=== PATIENT | female | born 1965 | race Hispanic/Latino ===

== ENCOUNTER 2016-12-01 13:21 | Emergency (ER) | payer BC ==
[~2016-12-01] VITALS: Ht 157.5 cm; Wt 95.2 kg
[~2016-12-01 13:21] MED LIST: ASPIRIN EC81 MG PO; ATORVASTATIN CA40 MG PO; ATORVASTATIN CA80 MG PO; EFFIENT10 MG PO; FERREX 150 FOR1 EAC1 PO; HUMIRA40 MG/0.1 SUB-Q; ISOSORBIDE MONO30 MG PO; KETOPROFEN75 MG PO; METFORMIN HCL500 MG PO; METOPROLOL TART50 MG PO; NITROGLYCERIN0.4 MG SL; OXYCODONE HCL5 MG PO; PREDNISONE10 MG PO; SPIRIVA18 MCG INH; TRESIBA FL100 UNIT/1 SQ
[2016-12-01] MEDS ORDERED: LISINOPRIL10 MG PO (13:40)
[2016-12-01] MEDS ORDERED: CALCITRIOL0.5 MCG PO (13:40)
--- NOTE | 2016-12-01 15:35 | EKG ---
[facility] [address] [facility] [place] [address] Signed Normal sinus rhythm Left axis deviation T wave abnormality, consider lateral ischemia Abnormal ECG No previous ECGs available Confirmed by SARA FAGAN MD ([id number]) on 12/01/2016 3:35:22 PM Electronically Signed By: SARA FAGAN MD 12/01/16 1535 PATIENT NAME: BARBARA CUEVAS Electrocardiogram DATE OF : 61 PHYSICIAN: SARA FAGAN MD REPORT #: [id number] REPORT IS CONFIDENTIAL AND NOT TO BE RELEASED WITHOUT AUTHORIZATION
== END 2016-12-01 17:25 | disposition home or self-care (01) ==
LOC: ED 13:21
DX: I20.9 Angina pectoris, unspecified (principal); E11.9 Type 2 diabetes mellitus without complications; I25.2 Old myocardial infarction; M06.9 Rheumatoid arthritis, unspecified; Z87.891 Personal history of nicotine dependence; Z90.49 Acquired absence of other specified parts of digestive tract; Z98.51 Tubal ligation status; Z79.899 Other long term (current) drug therapy; Z79.4 Long term (current) use of insulin
CPT/HCPCS: 71020; 80053; 84484; 85025; 93005; 93010; 99284

== ENCOUNTER 2017-06-29 00:26 | Emergency (ER) | payer BC ==
[~2017-06-29] VITALS: Ht 157.5 cm; Wt 95.2 kg
[~2017-06-29 00:26] MED LIST changes: +CALCITRIOL0.5 MCG PO; +LISINOPRIL10 MG PO
[2017-06-29] MEDS ORDERED: OXYCODONE HCL5 MG PO (02:59)
== END 2017-06-29 03:10 | disposition home or self-care (01) ==
LOC: ED 00:26
DX: M06.9 Rheumatoid arthritis, unspecified (principal); E11.9 Type 2 diabetes mellitus without complications; I25.2 Old myocardial infarction; Z87.891 Personal history of nicotine dependence; Z79.899 Other long term (current) drug therapy
CPT/HCPCS: 96372; 99283; J1170; J2270

== ENCOUNTER 2017-12-02 15:11 | Emergency (ER) | payer BC ==
[~2017-12-02] VITALS: Ht 157.5 cm; Wt 95.7 kg
[2017-12-02] MEDS ORDERED: MORPHINE SULFAT15 MG PO (15:49)
== END 2017-12-02 17:16 | disposition home or self-care (01) ==
LOC: ED 15:11
DX: M06.9 Rheumatoid arthritis, unspecified (principal); E11.9 Type 2 diabetes mellitus without complications; Z87.891 Personal history of nicotine dependence; Z79.4 Long term (current) use of insulin; Z79.899 Other long term (current) drug therapy
CPT/HCPCS: 96374; 96375; 96376; 99283; J1100; J1170; J2405

== ENCOUNTER 2018-05-15 20:07 | Emergency (ER) | payer BC ==
[~2018-05-15] VITALS: Ht 157.5 cm; Wt 93.0 kg
[~2018-05-15 20:07] MED LIST changes: +AMOXICILLIN500 MG PO; +ANUCORT-HC25 MG PR; +FERROUS SULFAT325 MG PO; +MORPHINE SULFAT15 MG PO; +NITROSTAT0.4 MG SL; +PERCOCET 5-3251 EACH PO; +SULFASALAZINE500 MG PO; +TRULICITY1.5 MG/0.5 SUB-Q
[2018-05-15] MEDS ORDERED: ZOFRAN4 MG PO (23:12)
== END 2018-05-15 23:45 | disposition home or self-care (01) ==
LOC: ED 20:07
DX: K52.9 Noninfective gastroenteritis and colitis, unspecified (principal); M06.9 Rheumatoid arthritis, unspecified; E11.9 Type 2 diabetes mellitus without complications; Z87.891 Personal history of nicotine dependence; Z87.442 Personal history of urinary calculi; Z90.710 Acquired absence of both cervix and uterus; Z91.09 Other allergy status, other than to drugs and biological substances; Z88.8 Allergy status to other drugs, medicaments and biological substances; Z79.4 Long term (current) use of insulin; Z79.899 Other long term (current) drug therapy; Z79.82 Long term (current) use of aspirin
CPT/HCPCS: 80053; 81001; 84703; 85025; 87045; 87046; 87077; 96361; 96374; 96376; 99284-25; J2405; J7030

== ENCOUNTER 2019-01-04 21:49 | Emergency (ER) | payer OTHER, BC ==
[~2019-01-04] VITALS: Ht 157.5 cm; Wt 82.5 kg
[~2019-01-04 21:49] MED LIST changes: +ZOFRAN4 MG PO
--- OUTSIDE RECORDS SUMMARY | 2019-01-04 21:52 | XMS ---
PreManage Notification: BARBARA CUEVAS Security Abrasives Sales Representative Events No recent Security Events currently on file CRITERIA MET - [facility] CARE PROVIDERS TERRI ANDREWS Manager Culture [facility] Eliel Bell NEIL PHONE: Unknown WILMA MATTA Nurse Practitioner: Family Current PHONE: Unknown ROBERTO STARK [facility] Current PHONE: Unknown ROBERTO STARK Primary [facility] Current PHONE: [phone] Lizbeth has no Care Guidelines for this patient. [place] VISIT COUNT (12 MO.) 1 [place] Miguel[place] 3 DHEERAJ Warner TOTAL 4 NOTE: Visits indicate total known visits. ED/UCC VISIT TRACKING (12 MO.) 01/04/2019 21:49 DHEERAJ [place] TYPE: Emergency COMPLAINT: - FALL 11/21/2018 16:19 [facility] [place] TYPE: Urgent Care DIAGNOSES: - Vaginitis - Candidiasis of vulva and vagina 11/07/2018 13:24 [facility] [place] TYPE: Urgent Care DIAGNOSES: - Other - Cutaneous abscess of abdominal wall - Cellulitis of other sites 07/28/2018 16:30 [facility] [place] TYPE: Emergency DIAGNOSES: - Encounter for other specified surgical aftercare - Post-op Problem - post op issues 07/28/2018 15:57 [facility] Urgent [facility] [place] TYPE: Urgent Care DIAGNOSES: - Wound Check - Procedure and treatment not carried out due to patient leaving prior to being seen by health care provider 05/15/2018 20:08 [facility] [place] TYPE: Emergency COMPLAINT: - DIAHERRA/VOMITTING AND WEAKNESS DIAGNOSES: - Acquired absence of both cervix and uterus - manager materials management (current) use of aspirin - Noninfective gastroenteritis and colitis, unspecified - Other fluorescent solution mixer (current) drug therapy - Type 2 diabetes mellitus without complications - manager materials management (current) use of insulin - Other allergy status, other than to drugs and biological substances - Personal history of urinary calculi - Diarrhea, unspecified - Personal history of nicotine dependence - Rheumatoid arthritis, unspecified - Allergy status to other drugs, medicaments and biological substances status 01/21/2018 16:54 DHEERAJ [place] TYPE: Emergency COMPLAINT: - SOB INPATIENT VISIT TRACKING (12 MO.) [facility] TYPE: Recovery DIAGNOSES: - Excessive and frequent menstruation with irregular cycle - menorrhagia, fibroid uterus - Benign neoplasm of connective and other soft tissue, unspecified 01/21/2018 16:[address] [facility] [place] TYPE: Observation COMPLAINT: - SYMPTOMATIC ANEMIA DIAGNOSES: - Chronic kidney disease, unspecified - Atherosclerotic heart disease of [place] coronary artery without angina pectoris - Personal history of other endocrine, nutritional and metabolic disease - Personal history of other diseases of the digestive system - Other fluorescent solution mixer (current) drug therapy - Presence of coronary angioplasty implant and graft - manager materials management (current) use of insulin - Patient's noncompliance with other medical treatment and regimen - assisted (current) use of aspirin - Iron deficiency anemia secondary to blood loss (chronic) - Rheumatoid arthritis, unspecified - Acute posthemorrhagic anemia - Personal history of nicotine dependence - Anemia, unspecified - Old myocardial infarction - Type 2 diabetes mellitus with diabetic chronic kidney disease [email or web address]
== END 2019-01-05 01:34 | disposition home or self-care (01) ==
LOC: ED 21:49
PROC: 2W3KX1Z Immobilization of Left Finger using Splint (ICD-10-PCS; principal; 2019-01-04)
DX: S63.613A Unspecified sprain of left middle finger, initial encounter (principal); S63.601A Unspecified sprain of right thumb, initial encounter; S80.02XA Contusion of left knee, initial encounter; E11.9 Type 2 diabetes mellitus without complications; I25.2 Old myocardial infarction; F17.200 Nicotine dependence, unspecified, uncomplicated; Z95.5 Presence of coronary angioplasty implant and graft; Z87.442 Personal history of urinary calculi; Z88.8 Allergy status to other drugs, medicaments and biological substances; Z91.048 Other nonmedicinal substance allergy status; Z79.4 Long term (current) use of insulin; Z79.82 Long term (current) use of aspirin; Z79.899 Other long term (current) drug therapy; W10.8XXA Fall (on) (from) other stairs and steps, initial encounter
CPT/HCPCS: 29130; 73140; 73560; 73590; 99283-25

== ENCOUNTER 2019-02-12 06:45 | Day surgery (SDC) | payer BC ==
[~2019-02-12] VITALS: Ht 157.5 cm; Wt 82.5 kg
--- NOTE | 2019-02-12 09:48 | NUR ---
02/12/19 0948 Sheets,Sanam 0933 PT ARRIVED WITH ORAL AIRWAY IN PLACE, PT REACTIVE TO TACTILE STIMULI. RESP EVEN AND UNLABORED. 0934 PT OPENED EYES AND ORAL AIRWAY REMOVED. 0936 O2 MASK REMOVED, PT DENIES PAIN AND NAUSEA HOB INCREASED. 0940 PLAN OF CARE DISCUSSED. PT AWAKE AND TALKING TO RN. PT EDUCATION GIVEN ON DEMETRI DRAIN.
--- NOTE | 2019-02-12 10:05 | NUR ---
PT ARRIVES TO DS RM 4 FROM PACU AWAKE AND ALERT. RESP EVEN AND UNLABORED, PT SATS 94% ON RA, CONT PULSE OXIMETER LEFT IN PLACE. PT DENIES NAUSEA OR PAIN IN ABD. PT PROVIDED ICED WATER, THREE AFFILIATED SODA AND PUDDING PER REQUEST. CALL LIGHT WITHIN REACH.
--- NOTE | 2019-02-12 11:46 | NUR ---
PT USES CALL LIGHT TO NOTIFY RN OF URGE TO VOID. PT HAS STEADY GAIT WITH NO C/O DIZZINESS OR NAUSEA. DEMETRI DRAIN SAFETY PINNED TO GOWN. PT ABLE TO VOID 400 MLS YELLOW URINE WITH NO PROBLEMS. PT BACK TO BED WITH SCD'S IN PLACE, CALL LIGHT WITHIN REACH.
--- NOTE | 2019-02-12 12:31 | NUR ---
1220 PT REPORTS READINESS TO GO HOME DISCHARGE INSTRUCTIONS GIVEN TO PATIENT AND FRIEND BOTH VOICED UNDERSTANDING. ABOUT 2ML OF RED SEROUS FLUID DRAINDED OUT OF DEMETRI DRAIN.
--- NOTE | 2019-02-13 05:41 | OR ---
[facility] [address] [place], [place] [address] Signed DATE OF OPERATION: 02/12/2019 SURGEON: Catarino Zambrano MD PREOPERATIVE DIAGNOSIS: Postoperative seroma. POSTOPERATIVE DIAGNOSIS: Small cutaneous sinus tract. PROCEDURES: 1. Excision of scar and sinus tract. 2. Wound exploration. 3. Subcutaneous drain placement. ESTIMATED BLOOD LOSS: None. FINDINGS: Jessie appears to have completely resorbed her postoperative seroma and finally scarred down her sinus tract. However, the overlying skin remained quite thin and the scar was just over a centimeter, quite wide. INDICATIONS: Jessie is a 54-year-old, obese, uncontrolled diabetic and uncontrolled hypertensive patient, who in August of this year underwent a difficult open hysterectomy. This was done through an infraumbilical midline incision. The wound had broke down and she had wound packing initially and followed by application of her wound VAC. She apparently missed a couple months of work. Her boyfriend finally left. She said over the last 2-1/2 months, the wound was opened up at least four different times and leaked a significant amount of fluid. The primary care provider had ordered an ultrasound, which showed a fluid collection 3.4 x 3.0 x 2.5 cm just underneath the skin that extended down to the anterior abdominal wall and stretched itself across the anterior abdominal wall about 13 cm x 15 cm x 0.4 cm thick. The ultrasound was not able to determine that this was blood pus or just simple fluid. She had come to see me with respect to the above. On physical exam, we really could not appreciate an obvious fluid collection. I explained to Jessie, she would continue to heal for the entire year. However, she told me it was already starting to break down for the 5th time to leak through her skin. She was quite concerned. We had ordered a CT scan of the abdomen and pelvis. This showed some fluid collection underneath the skin, but along the abdominal wall, it was Electronically Signed By: CATARINO ZAMBRANO MD 02/13/19 0541 PATIENT NAME: JESSIE CUEVAS OPERATIVE REPORT DATE OF : 61 REPORT #: [id number] PHYSICIAN: CATARINO ZAMBRANO MD PCP: ANGIE TAYLOR MD REPORT IS CONFIDENTIAL AND NOT TO BE RELEASED WITHOUT AUTHORIZATION [facility] [address] [place] [id number] Signed improving. No obvious hernia. We did track down her operative report and as expected, all the suture utilized to close the abdominal wall is absorbable suture. I had met with Jessie back in the office. We went over this in great detail. She felt strongly that it was still leaking and she could point easily to the area of a thin scar tissue. Consequently, we decided to bring her to the operating room for exploration of the wound and we would excise the scar or any sinus tract that we could find. If there was any fluid, we certainly would culture that. We are going to do our best to avoid an open wound as she needs to continue her employment. Consequently, we discussed using a simple #7 Seb drain. 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 We reviewed this in great detail. We also reviewed the risks including, but not limited to bleeding, infection, scarring, change in contour of the skin as well as recurrent seromas and/or need for additional surgeries or wound care. She had expressed understanding and wished to proceed. PROCEDURE NOTE: I met with Jessie in our preop area once again. She could easily point to that thinned-out scar tissue. We marked that appropriately. In addition, we can see that Jessie has untreated hypertension and diabetes. She said, although she has commercial insurance, it is quite expensive. I asked her to review that with her primary care provider as she already has two myocardial stents from a myocardial infarction along with rheumatoid arthritis and we can see her renal function is already declining. She also told us that she meets with her gift officer about every six months. After this, Jessie was taken into the operating room and placed in the supine position under general LMA anesthesia. She was kept relatively light for the procedure. She certainly was breathing throughout the case. We did not pharmacologically paralyze her muscles. She was given preoperative antibiotics along with subcutaneous heparin. SCDs were utilized. She was then prepped and draped in the usual sterile fashion. We used our 20 blade knife to excise her previous thinned-out scar tissue and went down around that carefully and slowly with the cautery. We took it all the way down the anterior abdominal wall to the level of the fascia. There was no fluid collection underneath. That had all healed and settled down onto the abdominal wall. We found sinus tract that was scarred coming up to the skin. No fluid collection directly in the sinus tract itself. This was passed off the field to be reviewed by the Pathology Department. I did insert the needle out laterally underneath along the abdominal wall. There were no fluid collections to be aspirated. We then went ahead and injected local anesthetic in the abdominal wall in the subcutaneous tissues. The wound was irrigated and suctioned out until clear. We used a flat #7 Seb drain and we placed it into the base of the wound and brought it out through the right lower quadrant of the abdominal wall. It was held in place at the abdominal wall with 2-0 nylon suture. We closed the dermis with interrupted 3-0 subcuticular Monocryl sutures. The skin edges were reapproximated with a running 6-0 fast absorbing plain gut suture. She told us she was quite sensitive and allergic to tape, so we simply did not apply any gauze dressing or tape at this time. Electronically Signed By: CATARINO ZAMBRANO MD 02/13/19 0541 PATIENT NAME: JESSIE CUEVAS OPERATIVE REPORT DATE OF : 61 REPORT #: [id number] PHYSICIAN: CATARINO ZAMBRANO MD PCP: ANGIE TAYLOR MD REPORT IS CONFIDENTIAL AND NOT TO BE RELEASED WITHOUT AUTHORIZATION [address] [address] Signed After this, Jessie was awakened from anesthesia, extubated in the OR, and taken to recovery room in stable condition. Catarino Zambrano MD ALB/MODL /[id number] cc: MD Robin Rivera MD Andrew L Bower, MD Hipolito Custodio, MD Copies: MARYANN RHODES MD, ANDREW L MD CUSTODIO, HIPOLITO MD ~ Electronically Signed By: CATARINO ZAMBRANO MD 02/13/19 0541 PATIENT NAME: JESSIE CUEVAS OPERATIVE REPORT DATE OF : 61 REPORT #: [id number] PHYSICIAN: CATARINO ZAMBRANO MD PCP: ANGIE TAYLOR MD REPORT IS CONFIDENTIAL AND NOT TO BE RELEASED WITHOUT AUTHORIZATION
== END 2019-02-12 12:30 | disposition home or self-care (01) ==
LOC: DS 06:45
PROVIDERS: Colon & Rectal Surgery
PROC: 0JB80ZZ Excision of Abdomen Subcutaneous Tissue and Fascia, Open Approach (ICD-10-PCS; principal; 2019-02-12 08:30)
DX: L90.5 Scar conditions and fibrosis of skin (principal); L98.8 Other specified disorders of the skin and subcutaneous tissue; M06.9 Rheumatoid arthritis, unspecified; F17.210 Nicotine dependence, cigarettes, uncomplicated; Z91.040 Latex allergy status; Z79.82 Long term (current) use of aspirin; I25.2 Old myocardial infarction
CPT/HCPCS: 00400; J0690; J1100; J1644; J1885; J2704; J3010; J7120

== ENCOUNTER 2019-02-23 16:35 | Inpatient (IN) | payer BC ==
[~2019-02-23] VITALS: Ht 157.5 cm; Wt 88.9 kg
--- OUTSIDE RECORDS SUMMARY | ~2019-02-23 | XMS | Encounter Summary ---
Demographics + + + | Address | [address] | | | [place] [address] | + + + | Home Phone | | + + + | Preferred Language | Unknown | + + + | Marital Status | | + + + | Adventist Affiliation | Unknown | + + + | Race | Unknown | + + + | Ethnic Group | Unknown | + + + Author + + + | Author | [employer] (Historical as of | | | 12-26-18) | + + + | Organization | [facility] (Historical as of | | | 12-26-18) | + + + | Address | Unknown | + + + | Phone | Unavailable | + + + Support + + +---------+ + | Name | Relationship | Address | Phone | + + +---------+ + | Raul Humphreys | ECON | Unknown | | | egorio | | | | + + +---------+ + Care Team Providers + +------+ + | Care Team Leader/Research Psychologist Name | Role | Phone | + +------+ + | Madhu Jo MD | PCP | | + +------+ + Encounter Details +--------+ + + + + | Date | Type | Department | Care Team | Description | +--------+ + + + + | 12/17/ | Telephone | [facility] | Elaine Frazier RN | | | 2019 | | Associated | | | | | | [facility] | | | | | | [address], | | | | | | [address] [place], | | | | | | [place] [address] | | | | | | [phone] | | | +--------+ + + + + Social History + + + +--------+------+ | Tobacco Use | Types | Packs/Day | Years | Date | | | | | Used | | + + + +--------+------+ | Former Smoker | Cigarettes | | | | + + + +--------+------+ + +---+---+---+ | Smokeless Tobacco: | | | | | Never Used | | | | + +---+---+---+ + + | Comments: Quit about 2 months ago. | + + + + +---------+ + | Alcohol Use | Drinks/We | oz/Week | Comments | | | ek | | | + + +---------+ + | No | | | | + + +---------+ + + + + | Sex Assigned at | Date Recorded | | | | + + + | Not on file | | + + + as of this encounter Plan of Treatment Not on fileas of this encounter Visit Diagnoses Not on filein this encounter"
--- OUTSIDE RECORDS SUMMARY | ~2019-02-23 | XMS | Encounter Summary ---
Demographics + + + | Address | [address] | | | [place] [address] | + + + | Home Phone | | + + + | Preferred Language | Unknown | + + + | Marital Status | | + + + | Gnosticist Affiliation | Unknown | + + + | Race | Unknown | + + + | Ethnic Group | Unknown | + + + Author + + + | Author | [facility] (Historical as of | | | 12-26-18) | + + + | Organization | [facility] (Historical as of | | | 12-26-18) [...] Team Providers + +------+ + | Care Personal Consultant Name | Role | Phone | + +------+ + | Madhu Jo MD | PCP | | + +------+ + Reason for Visit + + + | Reason | Comments | + + + | Post-op Problem | | + + + Encounter Details +--------+---------+ + + + | Date | Type | Department | Care Team | Description | +--------+---------+ + + + | 12/16/ | Office | [facility] | Osmany Robin | Wound drainage | | 2019 | Visit | Associated | Lorenzo RIVERA MD [address] | (Primary Dx); Status | | | | [facility] | [address] | post total | | | | [address], | [address] [place], [place] | abdominal | | | | [address] [place], | [address] | hysterectomy | | | | [place] [address] | | bilateral | | | | [phone] | | salphingooophorectom | | | | | | y | +--------+---------+ + + + Social History [...] + + + as of this encounter Last Filed Vital Signs + + + + | Vital Sign | Reading | Time Taken | + + + + | Blood Pressure | 156/84 | 12/16/2018 1:49 PM PDT | + + + + | Pulse | 84 | 12/16/2018 1:49 PM PDT | + + + + | Temperature | - | - | + + + + | Respiratory Rate | - | - | + + + + | Oxygen Saturation | 95% | 12/16/2018 1:49 PM PDT | + + + + | Inhaled Oxygen | - | - | | Concentration | | | + + + + | Weight | 85.5 kg (188 lb 9.6 | 12/16/2018 1:49 PM PDT | | | oz) | | + + + + | Height | 157.5 cm (5' 2") | 12/16/2018 1:49 PM PDT | + + + + | Body Mass Index | 34.5 | 12/16/2018 1:49 PM PDT | + + + + in this encounter Progress Robin Del Angel III, MD - 12/16/2018 1:30 PM PDTFormatting of this note may be di fferent from the original. Subjective: Patient ID: Jessie Casarez is a 53 y.o. female. HPI Complaining of drainage from her abdominal incision. She had abdominal hysterectomy earlier this year. This was complicated by postoperative infection and was managed with a wound VAC. The wound VAC was removed 8 weeks ago. She reports that few days ago she woke up with her sheets soaked up in serous drainage from the wound. Review of Systems Gastrointestinal: Positive for abdominal pain. Objective: Physical Exam Constitutional: She appears well-developed and well-nourished. No distress. Cardiovascular: Normal rate. Pulmonary/Chest: Effort normal. No respiratory distress. Abdomina/Gl: Soft. She exhibits no distension and no mass. There is no tenderness. There is no rebound and no guarding. There is a 5 mm raw area over her laparotomy scar, this is nontender, with very little flui d that could be expressed. Musculoskeletal: She exhibits no edema, tenderness or deformity. Assessment and Plan: Wound drainage. Her risk factor for poor wound healing is diabetes. Bactrim for 14 days was prescribed today. Fluconazole weekly for 4 doses was also prescribed, secondary to her predisposition to vagi nal yeast infections every time she starts antibiotics. Due to the amount of reported drainage, I would also order an abdominal ultrasound to look for a subcutaneous fluid collection, she prefers to have this done in [place]. Camille Lopez, ORNAMENTAL METAL WORKER HELPER - 12/16/2018 1:30 PM PDTFormatting of this note may be different from the original. Ancillary Note Patient ID: Jessie Casarez is a 53 y.o. . Preliminary Data (patient reported): Pt presents today for post op incisional pain and opening of incision for a second time sin ce surgery. Per pt report wound was draining but has stopped and is healing. She is s/p (1) Total abdominal hysterectomy, left oophorectomy, right salphingooophorectomy (2) Lysis of adhesions with Dr. Ceron on 07/23/18 and Repair sigmoid colon, Minor lysis o f adhesions with Dr. Og Odell BP 156/84 | Pulse 84 | Ht 5' 2" (1.575 m) | Wt 188 lb 9.6 oz (85.5 kg) | LMP 07/07/2018 (Exact Date) | SpO2 95% | BMI 34.50 kg/m Review of Systems Menstrual History: OB History Para Term AB Living 1 1 0 SAB TAB Ectopic Multiple Live Births 1 0 Patient's last menstrual period was 07/07/2018 (exact date). Recommendations from Health Maintenance / Immunizations Due: Health Maintenance Due Topic Vaccine: Dtap/Tdap/Td (1 - Tdap) Cervical Cancer Screening (Pap) Colon Cancer Screening (Colonoscopy) Breast Cancer Screening (Mammogram) Vaccine: Zoster (1 of 2) Specialty Comments on SnapShot: No specialty comments available. Patient Care Team: Madhu Jo MD as PCP - General (Pulmonary Medicine) The patient has not signed up for [employer]. in this encounter Plan of Treatment + +--------+ + + | Name | Priori | Associated Diagnoses | Order Schedule | | | ty | | | + +--------+ + + | US abdomen limited | Routin | Status post total | Ordered: 12/16/2018 | | | e | abdominal | | | | | hysterectomy | | | | | bilateral | | | | | salphingooophorectom | | | | | y Wound drainage | | + +--------+ + + as of this encounter Visit Diagnoses + + | Diagnosis | + + | Wound drainage - Primary | + + | Injury, other and unspecified, other specified sites, including multiple | + + | Status post total abdominal hysterectomy bilateral salphingooophorectomy | + + | Acquired absence of both cervix and uterus | + +
--- OUTSIDE RECORDS SUMMARY | ~2019-02-23 | XMS | Encounter Summary ---
Demographics + + + | Address | [address] | | | [place] [address] | + + + | Home Phone | | + + + | Preferred Language | Unknown | + + + | Marital Status | | + + + | Evangelical Affiliation | Unknown | + + + | Race | Unknown | + + + | Ethnic Group | Unknown | + + + Author + + + | Author | [email or web address] (Historical as of | | | 12-26-18) | + + + | Organization | [email or web address] (Historical as of | | | 12-26-18) [...] Team Providers + +------+ + | Care Machine Shop Lead Man Name | Role | Phone | + +------+ + | Madhu Jo MD | PCP | | + +------+ + Encounter Details +--------+ + + + + | Date | Type | Department | Care Team | Description | +--------+ + + + + | 12/14/ | Telephone | [facility] | Abigail Porras RN | | | 2018 | | Associated | | | | | | [facility] | | | | | | [address], | | | | | | [address] Only, | | | | | | [place] [address] | | | | | | [phone] | | | +--------+ + + + [...]
--- OUTSIDE RECORDS SUMMARY | ~2019-02-23 | XMS | Encounter Summary ---
Demographics + + + | Address | [address] | | | [place] [address] | + + + | Home Phone | | + + + | Preferred Language | Unknown | + + + | Marital Status | | + + + | Evangelical Affiliation | Unknown | + + + | Race | Unknown | + + + | Ethnic Group | Unknown | + + + Author + + + | Author | [facility] | | | and [place] | + + + | Organization | [facility] | | | [...] Team Providers + +------+ + | Care Freelance Interpreter/Translator Name | Role | Phone | + +------+ + | Kyle Richey DO | PCP | | + +------+ + Reason for Referral Evaluate & Treat (Routine) +--------+ + + + + + | Status | Reason | Specialty | Diagnoses / | Referred By | Referred To | | | | | Procedures | Contact | Contact | +--------+ + + + + + | Closed | Specialty | Surgery | Diagnoses | Osmany, | Irvin Maldonado | | | Services | | Wound | Robin | Mario Alberto | | | Required | | infection | Lorenzo III, | [address] | | | | | after | [address] | | | | | surgery | [address] | [place] | | | | | | [address] | [address] | | | | | | [place], [place] | Phone: | | | | | | [address] | [phone] | | | | | | Phone: | Fax: | | | | | | [phone] | [phone] | | | | | | Fax: | | | | | | | [phone] | | +--------+ + + + + + Reason for Visit +---------+ + | Reason | Comments | +---------+ + | Results | | +---------+ + Encounter Details +--------+ + + + + | Date | Type | Department | Care Team | Description | +--------+ + + + + | 01/06/ | Telephone | [facility] | Robin Ceron | Results | | 2019 | | ASSOC[facility]ATED | Lorenzo RIVERA MD [address] | | | | | [facility] | [address] | | | | | [address] | [place] [address] | | | | | [address] [place], | [phone] | | | | | [place] [address] | | | | | | [phone] | | | +--------+ + + + [...] + +---------+ + | No | 0 | 0.0 | | | | Standard | | | | | drinks or | | | | | | | | | | equivalen | | | | | t | | | + + +---------+ + + + + | Sex Assigned at | Date Recorded | | | | + + + | Not on file | | + + + + + + + | Job Start Date | Occupation | Industry | + + + + | Not on file | Not on file | Not on file | + + + + + + + + | Travel History | Travel Start | Travel End | + + + + + + | No recent travel history available. | + + documented as of this encounter Plan of Treatment +--------+---------+ + + + | Date | Type | Specialty | Care Team | Description | +--------+---------+ + + + | 05/31/ | Office | Cardiology | Marissa Rouse, | | | 2019 | Visit | | [address] | | | | | | [place], | | | | | | [place] [address] | | | | | | [phone] | | | | | | | | +--------+---------+ + + + + +--------+ + + | Name | Priori | Associated Diagnoses | Order Schedule | | | ty | | | + +--------+ + + | AMB Referral to General Surgery | Routin | Wound infection | Ordered: 01/07/2019 | | | e | after surgery | | + +--------+ + + documented as of this encounter Visit Diagnoses + + | Diagnosis | + + | Wound infection after surgery Other postoperative infection | + + documented in this encounter"
--- OUTSIDE RECORDS SUMMARY | ~2019-02-23 | XMS | Encounter Summary ---
Demographics + + + | Address | [address] | | | [place] [address] | + + + | Home Phone | | + + + | Preferred Language | Unknown | + + + | Marital Status | | + + + | Moravian Affiliation | Unknown | + + + | Race | Unknown | + + + | Ethnic Group | Unknown | + + + Author + + + | Author | [facility] | | | and [place] | + + + | Organization | [facility] | | | and [place] | + + + | Address | Unknown | + + + | Phone | Unavailable | + + + Support + + +---------+ + | Name | Relationship | Address | Phone | + + +---------+ + | NavjotjaneyRaul velazquez ECON | Unknown | | | egorio | | | | + + +---------+ + Care Team Providers + +------+ + | Care Aircraft Life Support Fitter Name | Role | Phone | + +------+ + | Kyle Richey DO | PCP | | + +------+ + Reason for Visit +---------+ + | Reason | Comments | +---------+ + | Results | | +---------+ + Encounter Details +--------+ + + + + | Date | Type | Department | Care Team | Description | +--------+ + + + + | 11/24/ | Telephone | [facility] | Felipe, | Results | | 2019 | | CARE [address] | Ras Bryan MD | | | | | [place] | [address] | | | | | [address] | [place] | | | | | [phone] | [address] | | | | | | | [...] | | 2019 | Visit | | MD [address] | | | | | | [place], | | | | | | [place] [address] | | | | | | [phone] | | | | | | | | +--------+---------+ + + + documented as of this encounter Visit Diagnoses Not on filedocumented in this encounter"
--- OUTSIDE RECORDS SUMMARY | ~2019-02-23 | XMS | Encounter Summary ---
Demographics + + + | Address | [address] | | | [place] [address] | + + + | Home Phone | | + + + | Preferred Language | Unknown | + + + | Marital Status | | + + + | Baptism Affiliation | Unknown | + + + | Race | Unknown | + + + | Ethnic Group | Unknown | + + + Author + + + | Author | [facility] | | | and [place] | + + + | Organization | [facility] | | | [...] Team Providers + +------+ + | Care Aluminum Pool Installer Name | Role | Phone | + +------+ + | Kyle Richey DO | PCP | | + +------+ + Reason for Visit + + + | Reason | Comments | + + + | Referral | | + + + Encounter Details +--------+ + + + + | Date | Type | Department | Care Team | Description | +--------+ + + + + | 01/29/ | Telephone | [facility] | Elaine Frazier RN | Referral | | 2019 | | [facility]OC[facility] | | | | | | [facility] | | | | | | [address] | | | | | | [address] [place], | | | | | | [place] [address] | | | | | | [phone] | | | +--------+ + + + [...] 2019 | Visit | | [address] | | | | | | [place], | | | | | | [place] [address] | | | | | | [phone] | | | | | | | | +--------+---------+ + + + documented as of this encounter Visit Diagnoses Not on filedocumented in this encounter"
--- OUTSIDE RECORDS SUMMARY | ~2019-02-23 | XMS | Clinical Summary ---
Demographics + + + | Address | [address] | | | [place] [address] | + + + | Home Phone | | + + + | Preferred Language | Unknown | + + + | Marital Status | | + + + | Sabianist Affiliation | Unknown | + + + | Race | Unknown | + + + | Ethnic Group | Unknown | + + + Author + + + | Author | [facility] (Historical as of | | | 12-26-18) | + + + | Organization | [facility] (Historical as of | | | 12-26-18) [...] Team Providers + +------+ + | Care Sports Agent Name | Role | Phone | + +------+ + | Madhu Jo MD | PP | | + +------+ + Allergies + + + + + + | Active Allergy | Reactions | Severity | Noted | Comments | | | | | Date | | + + + + + + | Albuterol | Other (See Comments) | Medium | 08/16/19 | Gives her a | | | | | 17 | headache | + + + + + + | Clopidogrel | Other (See Comments) | Medium | 12/08/19 | Reaction Unknown | | | | | 16 | | + + + + + + | Metformin | Other (See Comments) | Medium | | Patient states it | | | | | | was contraindicated | | | | | | with another | | | | | | medication. | + + + + + + Current Medications + + + +---------+------+------+-------+ | Prescription | Sig. | Disp. | Refills | Star | End | Statu | | | | | | t | Date | s | | | | | | Date | | | + + + +---------+------+------+-------+ | adalimumab | Inject 0.8 mLs under | | | 04/2 | | Activ | | (HUMIRA) 40 MG/0.8ML | the skin every 7 | | | 2/20 | | e | | injection | days. | | | 16 | | | + + + +---------+------+------+-------+ | Mometasone Furoate | Inhale 2 puffs into | | | 04/0 | | Activ | | (ASMANEX HFA) 200 | the lungs. | | | 9/20 | | e | | MCG/ACT AERO | | | | 18 | | | + + + +---------+------+------+-------+ | aspirin 81 MG | Take 81 mg by mouth. | | | 07/0 | | Activ | | chewable tablet | | | | 8/20 | | e | | | | | | 16 | | | + + + +---------+------+------+-------+ | Dulaglutide 1.5 | Inject 1.5 mg into | | | | | Activ | | MG/0.5ML SOPN | the skin. | | | | | e | + + + +---------+------+------+-------+ | insulin degludec | Inject 25 Units into | | | / | | Activ | | (TRESIBA) 100 | the skin. | | | 3/20 | | e | | UNIT/ML injection | | | | 17 | | | + + + +---------+------+------+-------+ | lidocaine | Cut and fit to | | | 10/ | | Activ | | (LIDODERM) 5 % | painful areas. Apply | | | 20 | | e | | | 12 hours on and 12 | | | 18 | | | | | hours off. | | | | | | + + + +---------+------+------+-------+ | nitroGLYCERIN | Take one tablet | | | 03/2 | | Activ | | (NITROSTAT) 0.4 MG | under tongue as | | | 20 | | e | | SL tablet | needed for chest | | | 18 | | | | | pain, may repeat | | | | | | | | every 5 minutes up | | | | | | | | to 3 doses. If no | | | | | | | | relief after 3rd | | | | | | | | dose, call 911 | | | | | | + + + +---------+------+------+-------+ | predniSONE | Take 5-10 mg by | | | / | | Activ | | (DELTASONE) 5 MG | mouth. | | | 6 | | e | | tablet | | | | 18 | | | + + + +---------+------+------+-------+ | sulfaSALAzine | Take 1,000 mg by | | | 10/3 | | Activ | | (AZULFIDINE) 500 MG | mouth. | | | 0/20 | | e | | EC tablet | | | | 18 | | | + + + +---------+------+------+-------+ | ferrous sulfate, | Take 1 tablet by | 60 | 11 | / | 03/ | Activ | | 65 FE, 325 (65 FE) | mouth 2 (two) times | tablet | | 8/20 | 720 | e | | MG tablet | daily with meals. | | | 19 | 20 | | + + + +---------+------+------+-------+ | metoprolol | Take 1 tablet by | 60 | 11 | / | 03 | Activ | | (LOPRESSOR) 50 MG | mouth 2 (two) times | tablet | | 12/29 | 11/28 | e | | tablet | daily. | | | 19 | 20 | | + + + +---------+------+------+-------+ | Gauze Pads & | Apply to affected | 100 | 0 | 03/2 | | Activ | | Dressings (GAUZE | area as needed | each | | 05/31 | | e | | PADS 4"X4") 4"X4" | | | | 19 | | | | PADSIndications: | | | | | | | | Wound drainage, | | | | | | | | Abdominal wall | | | | | | | | seroma, initial | | | | | | | | encounter | | | | | | | + + + +---------+------+------+-------+ | Soft Lens Products | Use solution to | 360 mL | 2 | 03/2 | | Activ | | (STERILE SALINE) | clean wound twice | | | 05/31 | | e | | SOLNIndications: | daily when doing | | | 19 | | | | Wound drainage, | dressing change. | | | | | | | Abdominal wall | | | | | | | | seroma, initial | | | | | | | | encounter | | | | | | | + + + +---------+------+------+-------+ | | Take 1 tablet by | 30 | 0 | 04/1 | | Activ | | oxyCODONE-acetaminop | mouth every 12 | tablet | | 20 | | e | | hen (PERCOCET) 5-325 | (twelve) hours as | | | 19 | | | | MG per tablet | needed for Pain (for | | | | | | | | wound VAC changes). | | | | | | + + + +---------+------+------+-------+ | cephALEXin | take 1 capsule by | | 0 | 06/2 | | Activ | | (KEFLEX) 500 MG | mouth four times a | | | 01/29 | | e | | capsule | day for 14 days | | | 19 | | | + + + +---------+------+------+-------+ | atorvastatin | Take 80 mg by mouth. | | | 03/2 | | Activ | | (LIPITOR) 80 MG | | | | 9/20 | | e | | tablet | | | | 18 | | | + + + +---------+------+------+-------+ | fluticasone | Inhale 2 puffs into | | | | | Activ | | (FLOVENT HFA) 220 | the lungs. | | | | | e | | MCG/ACT inhaler | | | | | | | + + + +---------+------+------+-------+ | isosorbide | Take 30 mg by mouth. | | | 03/2 | | Activ | | mononitrate (IMDUR) | | | | 9/20 | | e | | 30 MG 24 hr tablet | | | | 18 | | | + + + +---------+------+------+-------+ | lisinopril | Take 10 mg by mouth. | | | 03/2 | | Activ | | (ZESTRIL) 10 MG | | | | 9/20 | | e | | tablet | | | | 18 | | | + + + +---------+------+------+-------+ Active Problems + + + | Problem | Noted Date | + + + | Wound drainage | 08/02/2018 | + + + + + | Last Assessment & Plan: Lower abdominal wound drained last | | night. It is now empty with minimal induration. Used silver | | nitrate to cauterize the opening. Will use neosporin | + + + + + | Abdominal wall seroma | 08/02/2018 | + + + | Status post total abdominal hysterectomy bilateral | 07/23/2018 | | salphingooophorectomy | | + + + | Iron deficiency anemia due to chronic blood loss | 07/22/2018 | + + + | Obesity, unspecified | 11/21/2012 | + + + | CKD (chronic kidney disease) | 02/05/2012 | + + + | TB (pulmonary tuberculosis) | 01/23/2012 | + + + | Rheumatoid arthritis(714.0) | 01/23/2012 | + + + Resolved Problems + + + + | Problem | Noted | Resolved | | | Date | Date | + + + + | Menorrhagia with irregular cycle | 06/04/19 | | | | 19 | 9 | + + + + | Fibroid | 06/04/19 | | | | 19 | 9 | + + + + | NSTEMI (non-ST elevated myocardial infarction) | 11/22/19 | | | | 13 | 9 | + + + + | Proteinuria | 02/05/20 | | | | 12 | 9 | + + + + | Smoking | 02/05/20 | | | | 12 | 9 | + + + + | PNA (pneumonia) | 01/23/20 | | | | 12 | 9 | + + + + | Metabolic acidosis | 01/23/20 | | | | 12 | 9 | + + + + | Anemia | 11/16/19 | | | | 12 | 9 | + + + + | Acidosis | 11/16/19 | | | | 12 | 9 | + + + + | ARF (acute renal failure) | 11/16/19 | | | | 12 | 9 | + + + + | Unspecified pleural effusion | 11/14/19 | | | | 12 | 9 | + + + + | SOB (shortness of breath) | 11/14/19 | | | | 12 | 9 | + + + + | Hypoxia | 11/14/19 | | | | 12 | 9 | + + + + Encounters +--------+ + + + + | Date | Type | Specialty | Care Team | Description | +--------+ + + + + | 12/17/ | Telephone | | Elaine Frazier RN | | | 2018 | | | | | +--------+ + + + + | 12/16/ | Office | | Robin Ceron | Wound drainage | | 2018 | Visit | | Lorenzo RIVERA MD | (Primary Dx); Status | | | | | | post total | | | | | | abdominal | | | | | | hysterectomy | | | | | | bilateral | | | | | | salphingooophorectom | | | | | | y | +--------+ + + + + | 12/14/ | Telephone | | Abigail Porras RN | | | 2018 | | | | | +--------+ + + + + from Last 3 Months Immunizations + + + + | Name | Dates Previously Given | Next Due | + + + + | INFLUENZA PF, | 07/11/2016 | | | QUADRIVALENT | | | | (PED/ADOL/ADULT) | | | + + + + | Influenza Pf 18-64 | 02/09/2014 | | | Yrs, Triv | | | | Intradermal | | | + + + + | Influenza, PF | 03/10/2015, 02/09/2014 | | | Recombinant, | | | | Trivalent (Flublok) | | | + + + + | Influenza, Trivalent | 03/12/2017 | | | W/Preservative | | | + + + + | Pneumococcal | 07/11/2016 | | | Conjugate 13-valent | | | + + + + | Pneumococcal | 11/15/2011 | | | Polysaccharide | | | | 23-valent | | | + + + + Family History + + +------+ + | Medical History | Relation | Name | Comments | + + +------+ + | Diabetes type II | Father | | | + + +------+ + | High cholesterol | Father | | | + + +------+ + | Diabetes type II | Mother | | | + + +------+ + | Thyroid disease | Sister | | | + + +------+ + | Kidney disease | Neg Hx | | | + + +------+ + | Malig hypertherm | Neg Hx | | | + + +------+ + + +------+ + + | Relation | Name | Status | Comments | + +------+ + + | Brother | | Alive | | + +------+ + + | Father | | | | + +------+ + + | Mother | | Alive | | + +------+ + + | Sister | | Alive | | + +------+ + + Social History + + + [...] on file | | + + + Last Filed Vital Signs + + + + | Vital Sign | Reading | Time Taken | + + + + | Blood Pressure | 156/84 | 12/16/2018 1:49 PM PDT | + + + + | Pulse | 84 | 12/16/2018 1:49 PM PDT | + + + + | Temperature | 37 C (98.6 F) | 08/04/2018 10:29 AM PDT | + + + + | Respiratory Rate | 16 | 07/27/2018 11:06 AM PDT | + + + + | Oxygen [...] PM PDT | + + + + Plan of Treatment + + + + + | Health Maintenance | Due Date | Last Done | Comments | + + + + + | Vaccine: | | | | | Dtap/Tdap/Td (1 - | 2 | | | | Tdap) | | | | + + + + + | Cervical Cancer | | | | | Screening (Pap) | 3 | | | + + + + + | Breast Cancer | | | | | Screening | 3 | | | | (Mammogram) | | | | + + + + + | Colon Cancer | | | | | Screening | 3 | | | | (Colonoscopy) | | | | + + + + + | Vaccine: Zoster (1 | | | | | of 2) | 3 | | | + + + + + | Vaccine: Influenza | | 03/12/2017, 07/11/2016, | | | (#1) | 9 | 03/10/2015, Additional history | | | | | exists | | + + + + + Results Not on filefrom Last 3 Months Insurance +---------+--------+ +------+-------+ + | Payer | Benefi | Subscriber | Type | Phone | Address | | | t Plan | ID | | | | | | / | | | | | | | Group | | | | | +---------+--------+ +------+-------+ + | [employer] | PREMER | [id number] | | | [address] [address] | | | A BLUE | | | | [place] | | | [place] | | | | [address] | | | FED | | | | | | | PPO | | | | | +---------+--------+ +------+-------+ + + +--------+ +--------+ + + | Guarantor Name | Accoun | Relation to | Date | Phone | Billing Address | | | t Type | Patient | of | | | | | | | | | | + +--------+ +--------+ + + | JESSIE CUEVAS | Person | Self [birth year] | Home: | [address] | | | al/Fam | | 1965 | [phone] [address] [place] | | | [place] | | [phone] | + +--------+ +--------+ + +
--- OUTSIDE RECORDS SUMMARY | ~2019-02-23 | XMS | Clinical Summary ---
Demographics + + + | Address | [address] | | | [place] [address] | + + + | Home Phone | | + + + | Preferred Language | Unknown | + + + | Marital Status | | + + + | Christian Affiliation | Unknown | + + + | Race | Unknown | + + + | Ethnic Group | Unknown | + + + Author + + + | Author | [facility] | | | and [place] | + + + | Organization | [facility] | | | and [place] | + + + | Address | Unknown | + + + | Phone | Unavailable | + + + Support + + +---------+ + | Name | Relationship | Address | Phone | + + +---------+ + | NavjotshiraRual | ECON | Unknown | | | egorio | | | | + + +---------+ + Care Team Providers + +------+ + | Care Interior Design Program Chair Name | Role | Phone | + +------+ + | Kyle Richey DO | PCP | | + +------+ + Allergies + + + + + + | Active Allergy | Reactions | Severity | Noted | Comments | | | | | Date | | + + + + + + | Albuterol | Itching, Other (See | High | 01/18/20 | Headache | | | Comments) | | 16 | | + + + + + + | Metformin | Other (See Comments) | Medium | | Patient states it | | | | | | was contraindicated | | | | | | with another | | | | | | medication. | + + + + + + | Clopidogrel | Other (See Comments) | Low | 12/08/19 | Reaction Unknown | | | | | 16 | | + + + + + + Medications + + + +---------+------+------+-------+ | Medication | Sig | Dispensed | Refills | Star | End | Statu | | | | | | t | Date | s | | | | | | Date | | | + + + +---------+------+------+-------+ | adalimumab (HUMIRA | Inject 0.8 mLs under | | 0 | 04/2 | | Activ | | PEN) 40 mg/0.8 mL | the skin every 7 | | | 2/20 | | e | | injection (pen) | days. | | | 16 | | | + + + +---------+------+------+-------+ | dulaglutide | Inject 1.5 mg under | | 0 | | | Activ | | (TRULICITY) 1.5 | the skin Once a | | | | | e | | mg/0.5 mL injection | week. | | | | | | + + + +---------+------+------+-------+ | aspirin 81 MG | Take 81 mg by mouth | | 0 | | | Activ | | tablet | Daily. | | | | | e | + + + +---------+------+------+-------+ | insulin degludec | Inject 25 Units | | 0 | 02/1 | | Activ | | (TRESIBA FLEXTOUCH) | under the skin every | | | 3/20 | | e | | 100 units/mL | morning. | | | 17 | | | | injection | | | | | | | + + + +---------+------+------+-------+ | lisinopril | Take 1 tablet by | 90 | 3 | 03/2 | | Activ | | (PRINIVIL, ZESTRIL) | mouth Daily. | tablet | | 9/20 | | e | | 10 mg tablet | | | | 18 | | | + + + +---------+------+------+-------+ | isosorbide | Take 1 tablet by | 90 | 3 | 03/2 | | Activ | | mononitrate (IMDUR) | mouth Daily. | tablet | | 9/20 | | e | | 30 mg ER tablet | | | | 18 | | | + + + +---------+------+------+-------+ | atorvaSTATin | Take 1 tablet by | 90 | 3 | 03/2 | | Activ | | (LIPITOR) 80 MG | mouth nightly. | tablet | | 9/20 | | e | | tablet | | | | 18 | | | + + + +---------+------+------+-------+ | metoprolol | Take 1 tablet by | 180 | 3 | 03/2 | | Activ | | tartrate (LOPRESSOR) | mouth 2 times daily. | tablet | | 9/20 | | e | | 50 mg tablet | | | | 18 | | | + + + +---------+------+------+-------+ | nitroglycerin | Take one tablet | 90 | 3 | 03/2 | | Activ | | (NITROSTAT) 0.4 mg | under tongue as | tablet | | 9/20 | | e | | SL tablet [...] into | | 0 | | | Activ | | (FLOVENT HFA) 220 | the lungs 2 times | | | | | e | | mcg/puff inhaler | daily. | | | | | | + + + +---------+------+------+-------+ | ferrous sulfate | Take 325 mg by mouth | | 0 | | | Activ | | 325 mg tablet | daily (with | | | | | e | | | breakfast). | | | | | | + + + +---------+------+------+-------+ | sulfaSALAzine | Take 1,000 mg by | | 0 | | | Activ | | (AZULFIDINE) 500 mg | mouth 2 times daily. | | | | | e | | tablet | | | | | | | + + + +---------+------+------+-------+ | oxyCODONE | Take 5 mg by mouth | | 0 | | | Activ | | (ROXICODONE) 5 mg | every 4 hours as | | | | | e | | tablet | needed for Pain. | | | | | | + + + +---------+------+------+-------+ Active Problems + + + | Problem | Noted Date | + + + | Wound infection after surgery | 01/07/2019 | + + + | Hypertension | 11/21/2018 | + + + | Pleurisy | 11/21/2018 | + + + | Vaginitis | 11/21/2018 | + + + | Thyroid mass | 11/21/2018 | + + + | Uterine leiomyoma | 11/21/2018 | + + + | Abdominal wall seroma | 08/02/2018 | + + + | Status post total abdominal hysterectomy | 07/23/2018 | + + + | Iron deficiency anemia due to chronic blood loss | 07/22/2018 | + + + | Controlled type 2 diabetes mellitus with diabetic nephropathy, | 12/28/2016 | | with long-term current use of insulin | | + + + | Essential hypertension, benign | 12/28/2016 | + + + | Anemia of chronic renal failure | 07/23/2016 | + + + | Uncontrolled type 2 diabetes mellitus with hyperglycemia, with | 07/22/2016 | | long-term current use of insulin | | + + + | Non-ST elevation myocardial infarction (NSTEMI), initial episode | 11/20/2015 | | of care | | + + + | Elevated troponin I level | 11/20/2015 | + + + | Uncontrolled diabetes mellitus with hyperglycemia | 11/20/2015 | + + + | Acute kidney injury superimposed on chronic kidney disease | 11/20/2015 | + + + | Suspected sleep apnea | 11/20/2015 | + + + + + | Overview: Per patient never was tested. | + + + + + | Microcytic anemia | 11/20/2015 | + + + + + | Overview: Acute on chronic. | + + + + + | Leukocytosis, unspecified type | 11/20/2015 | + + + | Arthralgia of hip | 07/13/2015 | + + + | Gastroesophageal reflux disease without esophagitis | 06/19/2015 | + + + | DES (obstructive sleep apnea) | 06/19/2015 | + + + | COPD (chronic obstructive pulmonary disease) | 03/06/2015 | + + + | Chronic cough | 03/06/2015 | + + + | Adiposity | 11/21/2012 | + + + | Absolute anemia | 11/16/2011 | + + + | Extrapulmonary TB (tuberculosis) | | + + + + + | Overview: pleural effusion, + for TB, treated with DOT | | through [facility] | + + + +---+ | RA (rheumatoid arthritis) | | + +---+ | Pleural effusion | | + +---+ + + | Overview: secondary to RA?, negative for TB | + + + +---+ | Coronary artery disease involving [place] coronary artery of | | | [place] heart without angina pectoris | | + +---+ + + | Overview: [facility] 03/25/16, shows non-critical coronary artery | | disease; 50-70% stenosis at the midportion of the left circumflex | | artery, FFR of 0.98, open stents of the mid RCA, there is a | | co-dominate circulation, normal LV systolic function with an EF | | of 65%, systemic blood pressure is normal, there was successful | | angio seal placement to the puncture site in the right femoral | | artery. PLAN: Risk factor modification and Medical | | management.Stress Test 03/08/16, shows persantine EKG is | | negative, abnormal persantine sestamibi myocardial perfusion | | study with a medium-size, mainly reversible defect of a moderate | | severity of the entire anterior, anterolateral, inferior and | | inferior lateral, this suggests a medium-sized myocardial | | ischemia of both left anterior descending artery and left | | circumflex artery, gated SPECT reveals a normal left ventricular | | wall thickness and motion, preserved left ventricular systolic | | function, LVEF by gated SPECT is 64 %.NSTEMI - had cath on November | | and BMS implantation to left circumflex coronary artery. | | Done at [facility].RESULTS: Aortic pressure is 162/91, with a mean of | | 121. Left ventricular pressure is 155/12, with an EDP of 37. | | ARTERIOGRAPHY 1. Left main coronary artery is normal. 2. Left | | anterior descending is normal. 3. Left circumflex has a mid | | vessel 95% narrowing that appears to have some mild residual | | thrombus. 4. Right coronary artery has 2 proximal 20% to 30% | | narrowings, but is a large co-dominant artery. LEFT | | VENTRICULOGRAM Normal left ventricular systolic function without | | regional wall motion abnormalities. Aortic and mitral valves are | | structurally unremarkable. | + + + +---+ | CKD (chronic kidney disease) | | + +---+ | Acute coronary syndrome | | + +---+ + + | Overview: [facility] 11/23/15 shows severe right coronary artery | | disease successful stenting of the right coronary artery.[facility] | | 11/21/15 shows coronary artery disease; tight 90% stenosis at the | | midportion of the large caliber RCA with ANUJA grade 3 flow, | | there is also a borderline lesions at the distal portion of the | | LCx and proximal portion of D1,there is a co dominate | | circulation, normal LV systolic function with an EF of 65%, | | systemic blood pressure is moderately elevated, there was | | successful hemostasis with a TR hemostatic band.Echocardiogram | | 11/20/15 shows mild biatrial dilatation, normal left ventricular | | size, wall thickness and motion, preserved left ventricular | | systolic function, LVEF is 60%, normal valvular structure, normal | | right-sided pressure, normal IVC with normal respiratory | | collapse. | + + Resolved Problems + + + + | Problem | Noted | Resolved | | | Date | Date | + + + + | Type 2 diabetes mellitus without complication, without long-term | 02/22/20 | | | current use of insulin | 16 | 7 | + + + + | Acute non-ST elevation myocardial infarction (NSTEMI) | 11/22/19 | | | | 13 | 6 | + + + + | Acidosis, metabolic | 01/23/20 | | | | 12 | 6 | + + + + Encounters +--------+ + + + + | Date | Type | Specialty | Care Team | Description | +--------+ + + + + | 01/29/ | Telephone | Obstetrics and | Elaine Frazier RN | Referral | | 2018 | | Gynecology | | | +--------+ + + + + | 01/06/ | Telephone | Obstetrics and | Robin Ceron | Results | 2018 | | Gynecology | Lorenzo RIVERA MD | | +--------+ + + + + | 11/24/ | Telephone | Immediate Care | Niko Wang Results | | 2018 | | | Ras Bryan MD | | +--------+ + + + + from Last 3 Months Immunizations + + + + | Name | Dates Previously Given | Next Due | + + + + | INFLUENAZ PF | 02/09/2014 | | | TRIVALENT | | | | INTRADERMAL | | | + + + + | INFLUENZA PF 18 Y OR | 03/10/2015, 02/09/2014 | | | >,TRIVALENT | | | | RECOMBINANT | | | + + + + | INFLUENZA PF | 07/11/2016 | | | QUAD(PED/ADOL/ADULT) | | | | ,PSKT or VIAL | | | + + + + | INFLUENZA TRIV | 03/12/2017 | | | W/PRES(PED/ADOL/ADUL | | | | T),MULTIDOSE | | | + + + + | PNEUMOCOCCAL | 07/11/2016 | | | CONJUGATE 13-VALENT | | | | (PCV13) | | | + + + + | PNEUMOCOCCAL | 11/15/2011 | | | POLYSACCHARIDE | | | | 23-VALENT (PPSV23) | | | + + + + Family History + + +---------+ + | Medical History | Relation | Name | Comments | + + +---------+ + | Diabetes | Father | Darvin | | + + +---------+ + | Heart attack | Father | Darvin | | + + +---------+ + | Diabetes, NIDDM | Father | Darvin | | + + +---------+ + | High cholesterol | Father | Darvin | | + + +---------+ + | Diabetes | Mother | Agapita | | + + +---------+ + | Diabetes, NIDDM | Mother | Agapita | | + + +---------+ + | Arthritis | Sister | Kimberlee | | + + +---------+ + | Diabetes | Sister | Kimberlee | | + + +---------+ + | Thyroid disease | Sister | | | + + +---------+ + | Kidney disease | Neg Hx | | | + + +---------+ + | Malig hypertherm | Neg Hx | | | + + +---------+ + + +---------+ + + | Relation | Name | Status | Comments | + +---------+ + + | Brother | Benjy | Alive | | + +---------+ + + | Brother | | Alive | | + +---------+ + + | Father | Darvin | | | + +---------+ + + | Father | Darvin | | | + +---------+ + + | Father | Darvin | | | + +---------+ + + | Mother | Agapita | | | + +---------+ + + | Mother | Agapita | Alive | | + +---------+ + + | Mother | Agapita | | | + +---------+ + + | Sister | Kimberlee | Alive | | + +---------+ + + | Sister | | Alive | | + +---------+ + + | Sister | | | | + +---------+ + + Social History + + + [...] | | + +---+---+---+ + + | Tobacco Cessation: Counseling Given: No | | Comments: Quit about 2 months ago. [...] recent travel history available. | + + Last Filed Vital Signs + + + + | Vital Sign | Reading | Time Taken | + + + + | Blood Pressure | 156/84 | 12/16/2018 1349 PDT | + + + + | Pulse | 84 | 12/16/20181348 PDT | + + + + | Temperature | 36.9 C (98.4 F) | 11/21/20181628 PDT | + + + + | Respiratory Rate | 17 | 11/21/20181628 PDT | + + + + | Oxygen Saturation | 99% | 11/21/20181628 PDT | + + + + | Inhaled Oxygen | - | - | | Concentration | | | + + + + | Weight | 85.5 kg (188 lb 9.6 | 12/16/20181348 PDT | | | oz) | | + + + + | Height | 157.5 cm (5' 2") | 12/16/2018 1349 PDT | + + + + | Body Mass Index | 34.5 | 12/16/2018 1349 PDT | + + + + Plan of Treatment +--------+---------+ + + + | Date | Type | Specialty | Care Team | Description | +--------+---------+ + + + | 05/31/ | Office | Cardiology | Marissa Rouse, | | | 2019 | Visit | | [address] | | | | | | [place], | | | | | | [place] [address] | | | | | | [phone] | | | | | | | | +--------+---------+ + + + + + + + + | Health Maintenance | Due Date | Last Done | Comments | + + + + + | Diabetic Eye Exam | | | | | | 1 | | | + + + + + | Diabetic Foot Exam | | | | | | 1 | | | + + + + [...] + + + | Vaccine: | | 07/11/2016, 11/15/2011 | | | Pneumococcal 19-64 | 7 | | | | Highest Risk (3 of 3 | | | | | - PPSV23) | | | | + + + + + | Colorectal Cancer | | 11/22/2015, 11/22/2015, | | | Screening (FIT) | 7 | 11/20/2015 | | + + + + + | Breast Cancer | | | | | Screening | 8 | | | + + + + + | Hemoglobin A1c | | 07/26/2018, 10/28/2016, | | | Screening | 9 | 11/20/2015 | | + + + + + | Vaccine: Influenza | | 03/12/2017, 07/11/2016, | | | (#1) | 9 | 03/10/2015, Additional history | | | | | exists | | + + + + + | Hepatitis C | Completed | 10/28/2016 | | | Screening | | | | + + + + + Implants + +-------+--------+ +--------+--------+--------+ | Implanted | Type | Area | Manufacture | Device | Shelf | Model | | | | | r | | Expira | / | | | | | | Identi | tion | Serial | | | | | | fier | Date | / Lot | + +-------+--------+ +--------+--------+--------+ | XienceImplanted: Qty: 1 on | Stent | N/A: | PORTER | | 07/06/ | ALPINE | | 11/23/2015 by Irvin Bell | | [place] | VASCULAR - | | 2019 | / | | MD [place] | | ry | [place] | | | /[id number] | | | | | | | | 39 | + +-------+--------+ +--------+--------+--------+ Procedures + +--------+ + + + | Procedure Name | Priori | Date/Time | Associated Diagnosis | Comments | | | ty | | | | + +--------+ + + + | DIAGNOSTIC REPORT - | | 2019 | | Results for this | | EXTERNAL SCAN | | 0:00 PDT | | procedure are in the | | | | | | results section. | + +--------+ + + + from Last 3 Months Results DIAGNOSTIC REPORT - EXTERNAL SCAN (2019 0:00 PDT) + + + | Narrative | Performed At | + + + | Ordered by an | | | unspecified provider. | | + + + from Last 3 Months Insurance +-------+--------+ +--------+-------+---------+------+ | Payer | Benefi | Subscriber | Effect | Phone | Address | Type | | | t Plan | ID | danielle | | | | | | / | | Dates | | | | | | Group | | | | | | +-------+--------+ +--------+-------+---------+------+ | BCBS | BCBS | [id number] | 05/12/19 | | | PPO | | | FEDERA | | 16-Pre | | | | | | L FEP | | sent | | | | +-------+--------+ +--------+-------+---------+------+ + +--------+ +--------+ + + | Guarantor Name | Accoun | Relation to | Date | Phone | Billing Address | | | t Type | Patient | of | | | | | | | | | | + +--------+ +--------+ + + | Jessie Casarez | Person | Self [birth year] | [address] | | | al/Fam | | 1965 | [phone] | [address] [place] | | | [place] | | | 6 (Home) | [address] | | | | | | [phone] | | | | | | | 4 (Work) | | + +--------+ +--------+ + + Advance Directives Patient has advance care planning documents, and code status on file. For more information, please contact:[facility] [place] [address] + + + + + | Code Status | Date | Date | Comments | | | Activated | Inactivated | | + + + + + | Full Code | 11/20/2015 | 11/24/2015 | | | | 4:00 | 15:08 | | + + + + +
--- OUTSIDE RECORDS SUMMARY | ~2019-02-23 | XMS | Encounter Summary ---
Demographics + + + | Address | [address] | | | [place] [address] | + + + | Home Phone | | + + + | Preferred Language | Unknown | + + + | Marital Status | | + + + | Anabaptist Affiliation | Unknown | + + + | Race | Unknown | + + + | Ethnic Group | Unknown | + + + Author + + + | Author | [facility] (Historical as of | | | 12-26-18) | + + + | Organization | [facility] (Historical as of | | | 12-26-18) [...] Team Providers + +------+ + | Care Folded Towel Machine Operator Name | Role | Phone | + +------+ + | Madhu Jo MD | PCP | | + +------+ + Encounter Details +--------+ + + + + | Date | Type | Department | Care Team | Description | +--------+ + + + + | 12/17/ | Telephone | [facility] | Elaine Frazier RN | | | 2019 | | Associated | | | | | | [facility] | | | | | | [address], | | | | | | [address] [place], | | | | | | [place] [address] | | | | | | [phone] | | | +--------+ + + + [...]
--- OUTSIDE RECORDS SUMMARY | ~2019-02-23 | XMS | Encounter Summary ---
Demographics + + + | Address | [address] | | | [place] [address] | + + + | Home Phone | | + + + | Preferred Language | Unknown | + + + | Marital Status | | + + + | Baptism Affiliation | Unknown | + + + | Race | Unknown | + + + | Ethnic Group | Unknown | + + + Author + + + | Author | [facility] (Historical as of | | | 12-26-18) | + + + | Organization | [facility] (Historical as of | | | 12-26-18) [...] Team Providers + +------+ + | Care Wastewater Operator Name | Role | Phone | [...] + + | 12/16/ | Office | [facility] | Osmany Robin | Wound drainage | | 2019 | Visit | Associated | Lorenzo RIVERA MD [address] | (Primary Dx); Status | | | | [facility] | [address] | post total | | | | [address], | [address] [place], [place] | abdominal | | | | [address] [place], | [address] | hysterectomy | | | | [place] [address] | | bilateral | | | | [phone] | | salphingooophorectom | | | | [...] she prefers to have this done in [place]. Camille Lopez, ADJUSTMENT SUPERVISOR - 12/16/2018 1:30 PM PDTFormatting of this [...] The patient has not signed up for [employer]. in this encounter Plan of Treatment + [...]
--- OUTSIDE RECORDS SUMMARY | ~2019-02-23 | XMS | Clinical Summary ---
Demographics + + + | Address | [address] | | | [place] [address] | + + + | Home Phone | | + + + | Preferred Language | Unknown | + + + | Marital Status | | + + + | Latter-Day Affiliation | Unknown | + + + | Race | Unknown | + + + | Ethnic Group | Unknown | + + + Author + + + | Author | [facility] (Historical as of | | | 12-26-18) | + + + | Organization | [facility] (Historical as of | | | 12-26-18) [...] Team Providers + +------+ + | Care Supervisor Poultry Farm Name | Role | Phone | + [...] +------+-------+ + | PREMERA | PREMER | [id number] | | | [address] [address] | | | A BLUE | | | | [place] | | | [place]OSS | | | | [address] | | | FED | | | [...] | [place] | | | [phone] | [address] | + +--------+ +--------+ + +
--- OUTSIDE RECORDS SUMMARY | ~2019-02-23 | XMS | Encounter Summary ---
Demographics + + + | Address | [address] | | | [place] [address] | + + + | Home Phone | | + + + | Preferred Language | Unknown | + + + | Marital Status | | + + + | Anabaptist Affiliation | Unknown | + + + | Race | Unknown | + + + | Ethnic Group | Unknown | + + + Author + + + | Author | [facility] | | | and [place] | + + + | Organization | [facility] | | | [...] Team Providers + +------+ + | Care Link Assembler Name | Role | Phone | + [...] + + | 01/29/ | Telephone | [facility] | Elaine Frazier RN | Referral | | 2019 | | [facility] | | | | | | [facility] | | | | | | [address] | | | | | | [address] [place], | | | | | | [place] [address] | | | | | | [phone] | | | +--------+ + + + [...] [place], | | | | | | [place] [address] | | | | | | [phone] | | | | | | | | +--------+---------+ + + + documented as of this encounter Visit Diagnoses Not on filedocumented in this encounter"
--- OUTSIDE RECORDS SUMMARY | ~2019-02-23 | XMS | Encounter Summary ---
Demographics + + + | Address | [address] | | | [place] [address] | + + + | Home Phone | | + + + | Preferred Language | Unknown | + + + | Marital Status | | + + + | Methodist Affiliation | Unknown | + + + | Race | Unknown | + + + | Ethnic Group | Unknown | + + + Author + + + | Author | [facility] (Historical as of | | | 12-26-18) | + + + | Organization | [facility] (Historical as of | | | 12-26-18) [...] Providers + +------+ + | Care Supervisor Pre Wave Name | Role | Phone | + +------+ + | Madhu Jo MD | PCP | | + +------+ + Encounter Details +--------+ + + + + | Date | Type | Department | Care Team | Description | +--------+ + + + + | 12/14/ | Telephone | [facility] | Abigail Porras RN | | | 2018 | | Associated | | | | | | [facility] | | | | | | [address], | | | | | | [address] [place], | | | | | | [place] [address] | | | | | | [phone] | | | +--------+ + + + [...]
--- OUTSIDE RECORDS SUMMARY | ~2019-02-23 | XMS | Encounter Summary ---
Demographics + + + | Address | [address] | | | [place] [address] | + + + | Home Phone | | + + + | Preferred Language | Unknown | + + + | Marital Status | | + + + | Hinduism Affiliation | Unknown | + + + | Race | Unknown | + + + | Ethnic Group | Unknown | + + + Author + + + | Author | [facility] (Historical as of | | | 12-26-18) | + + + | Organization | [facility] (Historical as of | | | 12-26-18) [...] Team Providers + +------+ + | Care Fundraising Manager Name | Role | Phone | + +------+ + | Madhu Jo MD | PCP | | + +------+ + Encounter Details +--------+ + + + + | Date | Type | Department | Care Team | Description | +--------+ + + + + | 12/17/ | Telephone | [facility] | Elaine Frazier RN | | | 2019 | | Associated | | | | | | [facility] | | | | | | [address], | | | | | | [address] [place], | | | | | | [place] [address] | | | | | | [phone] | | | +--------+ + + + [...]
--- OUTSIDE RECORDS SUMMARY | ~2019-02-23 | XMS | Clinical Summary ---
Demographics + + + | Address | [address] | | | [place] [address] | + + + | Home Phone | | + + + | Preferred Language | Unknown | + + + | Marital Status | | + + + | Sikhism Affiliation | Unknown | + + + | Race | Unknown | + + + | Ethnic Group | Unknown | + + + Author + + + | Author | [facility] | | | and [place] | + + + | Organization | [facility] | | | and [place] | + + + | Address | Unknown | + + + | Phone | Unavailable | + + + Support + + +---------+ + | Name | Relationship | Address | Phone | + + +---------+ + | NavjotshiraRaul | ECON | Unknown | | | egorio | | | | + + +---------+ + Care Team Providers + +------+ + | Care Steel Analyst Name | Role | Phone | + [...] TB, treated with DOT | | through [facility] | + + + +---+ | RA (rheumatoid arthritis) | | + +---+ | Pleural effusion | | + +---+ + + | Overview: secondary to RA?, negative for TB | + + + +---+ | Coronary artery disease involving [place] coronary artery of | | | [place] heart without angina pectoris | | + +---+ + + | Overview: [facility] 03/25/16, shows non-critical coronary artery | [...] circumflex coronary artery. | | Done at [facility].RESULTS: Aortic pressure is 162/91, with a [...] | + +---+ + + | Overview: [facility] 11/23/15 shows severe right coronary artery | | disease successful stenting of the right coronary artery.[facility] | | 11/21/15 shows coronary artery [...] | | | | | | [place] [address] | | | | | | [phone] | | | | | | | [...] | ry | [place] | | | /[id number] | | | | | | | [...] +-------+--------+ +--------+-------+---------+------+ | BCBS | BCBS | [id number] | 05/12/19 | | | PPO | [...] arma[place] | | | 6 (Home) | [address] | | | | | | [phone] | | | | | | | 4 (Work) | | + +--------+ +--------+ + + Advance Directives Patient has advance care planning documents, and code status on file. For more information, please contact:[facility] [place] [address] + + + + + | Code Status | Date | Date | Comments | | | Activated | Inactivated | | + + + + + | Full Code | 11/20/2015 | 11/24/2015 | | | | 4:00 | 15:08 | | + + + + +
--- OUTSIDE RECORDS SUMMARY | ~2019-02-23 | XMS | Encounter Summary ---
Demographics + + + | Address | [address] | | | [place] [address] | + + + | Home Phone | | + + + | Preferred Language | Unknown | + + + | Marital Status | | + + + | Voodoo Affiliation | Unknown | + + + [...] Team Providers + +------+ + | Care Thermometer Production Worker Name | Role | Phone | [...] | | | | [address] | [address] | | | | | | [place], [place] | Phone: | | | | | | [address] | [phone] | | | | | | Phone: | Fax: | | | | | | [phone] | [phone] | | | | | | Fax: | | | | | | | [phone] | | +--------+ + + + + + Reason for Visit +---------+ + | Reason | Comments | +---------+ + | Results | | +---------+ + Encounter Details +--------+ + + + + | Date | Type | Department | Care Team | Description | +--------+ + + + + | 01/06/ | Telephone | [facility] | Robin Ceron | Results | | 2019 | | ASSOCIATED | Lorenzo RIVERA MD [address] | | | | | [facility] | [address] | | | | | [address] | [place] [address] | | | | | [address] [place], | [phone] | | | | | [place] [address] | | | | | | [phone] | | | +--------+ + + + [...] [place], | | | | | | [place] [address] | | | | | | [phone] | | | | | | | [...]
--- OUTSIDE RECORDS SUMMARY | ~2019-02-23 | XMS | Clinical Summary ---
Demographics + + + | Address | [address] | | | [place] [address] | + + + | Home Phone | | + + + | Preferred Language | Unknown | + + + | Marital Status | | + + + | Judaism Affiliation | Unknown | + + + | Race | Unknown | + + + | Ethnic Group | Unknown | + + + Author + + + | Author | [facility] | | | and [place] | + + + | Organization | [facility] | | [...] Team Providers + +------+ + | Care Jacquard Loom Fixer Name | Role | Phone | + [...] TB, treated with DOT | | through [facility] | + + + +---+ | [...] | + +---+ + + | Overview: [facility] 03/25/16, shows non-critical coronary artery | [...] circumflex coronary artery. 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 For more information, please contact:[facility] [place] [address] + + + + + | Code Status | Date | Date | Comments | | | Activated | Inactivated | | + + + + + | Full Code | 11/20/2015 | 11/24/2015 | | | | 4:00 | 15:08 | | + + + + +
--- OUTSIDE RECORDS SUMMARY | ~2019-02-23 | XMS | Encounter Summary ---
Demographics + + + | Address | [address] | | | [place] [address] | + + + | Home Phone | | + + + | Preferred Language | Unknown | + + + | Marital Status | | + + + | Presybeterian Affiliation | Unknown | + + + | Race | Unknown | + + + | Ethnic Group | Unknown | + + + Author + + + | Author | [facility] | | | and [place] | + + + | Organization | [facility] | | | [...] Team Providers + +------+ + | Care Sort Operations Supervisor Name | Role | Phone | [...] | | | | [address] | [address] | | | | | | [place], [place] | Phone: | | | | | | [address] | [phone] | | | | | | Phone: | Fax: | | | | | | [phone] | [phone] | | | | | | Fax: | | | | | | | [phone] | | +--------+ + + + + + Reason for Visit +---------+ + | Reason | Comments | +---------+ + | Results | | +---------+ + Encounter Details +--------+ + + + + | Date | Type | Department | Care Team | Description | +--------+ + + + + | 01/06/ | Telephone | [facility] | Robin Ceron | Results | | 2019 | | ASSOCIATED | Lorenzo RIVERA MD [address] | | | | | [facility] | [address] | | | | | [address] | [place] [address] | | | | | [address] [place], | [phone] | | | | | [place] [address] | | | | | | [phone] | | | +--------+ + + + [...] [place], | | | | | | [place] [address] | | | | | | [phone] | | | | | | | [...]
--- OUTSIDE RECORDS SUMMARY | ~2019-02-23 | XMS | Encounter Summary ---
Demographics + + + | Address | [address] | | | [place] [address] | + + + | Home Phone | | + + + | Preferred Language | Unknown | + + + | Marital Status | | + + + | Adventism Affiliation | Unknown | + + + | Race | Unknown | + + + | Ethnic Group | Unknown | + + + Author + + + | Author | [employer] (Historical as of | | | 12-26-18) | + + + | Organization | [facility] [employer] (Historical as of | | | 12-26-18) [...] Team Providers + +------+ + | Care Services Program Manager Name | Role | Phone | + +------+ + | Madhu Jo MD | PCP | | + +------+ + Encounter Details +--------+ + + + + | Date | Type | Department | Care Team | Description | +--------+ + + + + | 12/14/ | Telephone | [facility] | Abigail Porras RN | | | 2018 | | Associated | | | | | | [facility] | | | | | | [address], | | | | | | [address] [place], | | | | | | [place] [address] | | | | | | [phone] | | | +--------+ + + + [...]
--- OUTSIDE RECORDS SUMMARY | ~2019-02-23 | XMS | Encounter Summary ---
Demographics + + + | Address | [address] | | | [place] [address] | + + + | Home Phone | | + + + | Preferred Language | Unknown | + + + | Marital Status | | + + + | Caodaism Affiliation | Unknown | + + + | Race | Unknown | + + + | Ethnic Group | Unknown | + + + Author + + + | Author | [employer] (Historical as of | | | 12-26-18) | + + + | Organization | [facility] [employer] (Historical as of | | | 12-26-18) [...] Team Providers + +------+ + | Care Information Technology Account Manager Name | Role | Phone | [...] + + | 12/16/ | Office | [facility] | Osmany Robin | Wound drainage | | 2019 | Visit | Associated | Lorenzo RIVERA MD [address] | (Primary Dx); Status | | | | [facility] | [address] | post total | | | | [address], | [address] [place], [place] | abdominal | | | | [address] [place], | [address] | hysterectomy | | | | [place] [address] | | bilateral | | | | [phone] | | salphingooophorectom | | | | [...] she prefers to have this done in [place]. Camille Lopez, TELEPHONE DIRECTORY DISTRIBUTOR DRIVER - 12/16/2018 1:30 PM PDTFormatting of this [...] The patient has not signed up for Xspand. in this encounter Plan of Treatment + [...]
--- OUTSIDE RECORDS SUMMARY | ~2019-02-23 | XMS | Encounter Summary ---
Demographics + + + | Address | [address] | | | [place] [address] | + + + | Home Phone | | + + + | Preferred Language | Unknown | + + + | Marital Status | | + + + | Christianity Affiliation | Unknown | + + + | Race | Unknown | + + + | Ethnic Group | Unknown | + + + Author + + + | Author | [facility] | | | and [place] | + + + | Organization | [facility] | | | [...] Team Providers + +------+ + | Care Extender Name | Role | Phone | + [...] | | | | | [place] | [address] | | | | | [address] | [place] | | | | | [phone] | [address] | | | | | | | [...] | | | | | | [place] [address] | | | | | | [phone] | | | | | | | | +--------+---------+ + + + documented as of this encounter Visit Diagnoses Not on filedocumented in this encounter"
--- OUTSIDE RECORDS SUMMARY | ~2019-02-23 | XMS | Encounter Summary ---
Demographics + + + | Address | [address] | | | [place] [address] | + + + | Home Phone | | + + + | Preferred Language | Unknown | + + + | Marital Status | | + + + | Nondenominational Affiliation | Unknown | + + + | Race | Unknown | + + + | Ethnic Group | Unknown | + + + Author + + + | Author | [facility] | | | and [place] | + + + | Organization | [facility] | | | [...] Providers + +------+ + | Care Clinical Rn Name | Role | Phone | + [...] + + | 01/29/ | Telephone | [facility] | Elaine Frazier RN | Referral | | 2019 | | ASSOCIATED | | | | | | [facility] | | | | | | [address] | | | | | | [address] [place], | | | | | | [place] [address] | | | | | | [phone] | | | +--------+ + + + [...] [place], | | | | | | [place] [address] | | | | | | [phone] | | | | | | | | +--------+---------+ + + + documented as of this encounter Visit Diagnoses Not on filedocumented in this encounter"
--- OUTSIDE RECORDS SUMMARY | ~2019-02-23 | XMS | Encounter Summary ---
Demographics + + + | Address | [address] | | | [place] [address] | + + + | Home Phone | | + + + | Preferred Language | Unknown | + + + | Marital Status | | + + + | Cheondoism Affiliation | Unknown | + + + | Race | Unknown | + + + | Ethnic Group | Unknown | + + + Author + + + | Author | [facility] | | | and [place] | + + + | Organization | [facility] | | | and [...] Team Providers + +------+ + | Care Appliance Service Technician Name | Role | Phone | + [...] | | | | | [place] | [address] | | | | | [address] | [place] | | | | | [phone] | [address] | | | | | | | [...] [place], | | | | | | [place] [address] | | | | | | [phone] | | | | | | | | +--------+---------+ + + + documented as of this encounter Visit Diagnoses Not on filedocumented in this encounter"
--- OUTSIDE RECORDS SUMMARY | ~2019-02-23 | XMS | Clinical Summary ---
Demographics + + + | Address | [address] | | | [place] [address] | + + + | Home Phone | | + + + | Preferred Language | Unknown | + + + | Marital Status | | + + + | Presybeterian Affiliation | Unknown | + + + | Race | Unknown | + + + | Ethnic Group | Unknown | + + + Author + + + | Author | [employer] (Historical as of | | | 12-26-18) | + + + | Organization | [facility] [employer] (Historical as of | | | 12-26-18) [...] Team Providers + +------+ + | Care Bowling Ball Grader And Marker Name | Role | Phone | + [...] +------+-------+ + | PREMERA | PREMER | [id number] | | | [address] [address] | | | A BLUE | | | | [place] | | | CROSS | | | | [address] | | | FED | | | [...] | armaan | | | [phone] | [address] | + +--------+ +--------+ + +
--- OUTSIDE RECORDS SUMMARY | 2019-02-23 16:40 | XMS ---
PreManage Notification: BARBARA CUEVAS Security Physical Education Professor Events No recent Security Events currently on file CRITERIA MET - PDM CARE PROVIDERS TERRI ANDREWS [facility] Eliel Bell PHONE: Unknown CLAUDIA DAI III Obstetrics \T\ Gynecology 01/05/2019-Current ANGIE PHONE: Unknown WILMA MATTA Nurse Practitioner: Family Current PHONE: Unknown ROBERTO STARK [facility] Current PHONE: Unknown ROBERTO STARK Primary [facility] Current PHONE: [phone] Lizbeth has no Care Guidelines for this patient. [place] VISIT COUNT (12 MO.) 1 [facility] 3 DHEERAJ Warner TOTAL 4 NOTE: Visits indicate total known visits. ED/UCC VISIT TRACKING (12 MO.) 02/23/2019 16:37 DHEERAJ Lock TYPE: Emergency COMPLAINT: - FEVER 01/04/2019 21:49 DHEERAJ Lock TYPE: Emergency COMPLAINT: - FALL DIAGNOSES: - assistant terminal manager (current) use of insulin - Nicotine dependence, unspecified, uncomplicated - Cervicalgia - Unspecified sprain of left middle finger, initial encounter - Contusion of left knee, initial encounter - Fall (on) (from) other stairs and steps, initial encounter - Allergy status to oth drug/meds/biol subst status - 1 Type 2 diabetes mellitus without complications - Old myocardial infarction - Other terminal clerk (current) drug therapy - Presence of coronary angioplasty implant and graft - Personal history of urinary calculi - Unspecified sprain of right thumb, initial encounter - Other nonmedicinal substance allergy status - assistant terminal manager (current) use of aspirin 11/21/2018 16:19 [facility] [place] [facility] [place] TYPE: Urgent Care DIAGNOSES: - Vaginitis - Candidiasis of vulva and vagina 11/07/2018 13:24 [facility] Urgent Care [facility] TYPE: Urgent Care DIAGNOSES: - Other - Cutaneous abscess of abdominal wall - Cellulitis of other sites 07/28/2018 16:30 [facility] [place] [facility] DIAGNOSES: - Encounter for other specified surgical aftercare - Post-op Problem - post op issues 07/28/2018 15:57 [facility] Urgent Care [facility] TYPE: Urgent Care DIAGNOSES: - Wound Check - Proc/trtmt not crd out d/t pt lv bef [facility] 05/15/2018 20:08 DHEERAJ Tinajero [place] TYPE: Emergency COMPLAINT: - DIAHERRA/VOMITTING AND WEAKNESS DIAGNOSES: - Acquired absence of both cervix and uterus - retirement (current) use of aspirin - Noninfective gastroenteritis and colitis, unspecified - Other residential (current) drug therapy - 1 Type 2 diabetes mellitus without complications - assistant terminal manager (current) use of insulin - Oth allergy status, oth than to drugs and biolg substances - Personal history of urinary calculi - Diarrhea, unspecified - Personal history of nicotine dependence - Rheumatoid arthritis, unspecified - Allergy status to oth drug/meds/biol subst status INPATIENT VISIT TRACKING (12 MO.) [facility]23/2018 09[facility] TYPE: Recovery DIAGNOSES: - Excessive and frequent menstruation with irregular cycle - menorrhagia, fibroid uterus - Benign neoplasm of connective and other soft tissue, unsp [email or web address]
--- NOTE | 2019-02-23 20:00 | NUR ---
PATIENT ARRIVED TO THE FLOOR VIA STRETCHER, MOVED SELF OVER TO BED WITHOUT ASSISTANCE. IV FLUIDS INFUSING, 1L NS ON STRAIGHT TUBING AND 1L NS VIA THE PUMP. IV SITE ON RIGHT AC APPEARS WNL. IV SITE ON LEFT AC IS PAINFUL AND DIFFICULT TO FLUSH. VS WNL. PATIENT AFEBRILE.
--- NOTE | 2019-02-23 21:30 | NUR ---
SECOND IV SITE STARTED. IV ABX INFUSING PER ORDER. PATIENT REPORTED PAIN 7/10 IN ABD. PRN MARCK PROVIDED WITH SOME SF JELLO. ROWE PLACED, PATIENT TOLERATED WELL. ABD IS FIRM AROUND THE INCISION SITE AND WARM TO THE TOUCH. POST DRAINAGE SITE AT RLQ HAS SMALL AMOUNT OF BLOOD/YELLOW DRAINAGE. AREA COVERED WITH FRESH GAUZE.
--- NOTE | 2019-02-23 22:19 | NUR ---
PATIENT RESTING IN BED EYES CLOSED. WAKES EASILY TO VOICE. REPORTS IMPROVED PAIN IN ABD. BG CHECKED BY DIRECTOR PROSPECT, INSULIN PROVIDED PER SLIDING SCALE. PATIENT DENIES ANY NEEDS AT THIS TIME.
--- NOTE | 2019-02-24 00:20 | NUR ---
PATIENT APPEARS TO BE SLEEPING SOUNDLY. WOKE EASILY TO VOICE. DENIES PAIN. TEMP WNL. OUTPUT QS. NO NEW DRAINAGE AT WOUND SITE.
--- NOTE | 2019-02-24 01:59 | NUR ---
PATIENT'S BG WNL, NO SSI AT THIS TIME. PATIENT DENIES ANY NEEDS. SIP OF WATER WITH ORAL MEDS. REMINDED PATIENT OF NPO STATUS. PATIENT DENIES PAIN. CALL LIGHT IN REACH.
--- NOTE | 2019-02-24 05:18 | NUR ---
PATIENT REPORTS PAIN AT INCISION SITE, 8/10. PRN NORCO WITH SIP OF WATER PROVIDED. PATIENT'S URINE OUTPUT IS QS, PALE YELLOW. ORAL TEMP 99.0 F. IV FLUIDS PER ORDER, SITE WNL. PATIENT DENIES ANY FURTHER NEEDS.
--- NOTE | 2019-02-24 06:00 | NUR ---
PATIENT REPORTS IMPROVED PAIN CONTROL
--- NOTE | 2019-02-24 06:05 | CONS ---
[facility] [address] [place], [place] [address] Signed DATE OF CONSULTATION: 02/23/2019 CHIEF COMPLAINT: Fevers. HISTORY OF PRESENT ILLNESS: Jessie is a 54-year-old obese, diabetic female on Humira for rheumatoid arthritis. She underwent a hysterectomy in August of this year. The wound had to be left open to heal on secondarily. She had a wound VAC in place. She had recurring drainage from the midportion of that wound. We took her to the operating room about 11-12 days ago and excised the scar and underlying fibrous tissue. Pathology report came back with fibrosis and foreign body reaction and some foreign material in that subcutaneous tissue. We closed it primarily and put a drain at the bottom of the wound. When she came in the office, two days ago, we removed the drain and she was doing fine. She called back today with fevers and chills. We had called in some clindamycin, but told her if she continued to have any fevers or chills to present to our emergency room. She came into the emergency room earlier this evening. I was called by the ER physician. In the meantime, we have given her Zosyn and we have added in vancomycin. Her white count is up at 18.5 with lactic acid normal at 0.7. Urinalysis generally okay except for the protein. Creatinine is a little up at 2.2, but her baseline is 5 as well. We decided to place her in the ICU at least initially. We will have our Internal Medicine Service see her with help with her medical issues including diabetes. In the meantime, I am going to start cefepime and Flagyl along with vancomycin. PAST MEDICAL HISTORY: Rheumatoid arthritis and [place] x2 in 2012 and 2014 and diet-controlled diabetes. PAST SURGICAL HISTORY: Includes cholecystectomy, thoracentesis x2, tonsillectomy, adenoidectomy, tubal , cardiac stents, kidney stones, hysterectomy in August of this year, and excision of scar and foreign body about 10-12 days ago. SOCIAL HISTORY: She does smoke. She does not drink. She is to her at [phone]. Robin Richey D.O. is her primary care provider. She prefers the [facility] here in [place]. She works at the [employer]. FAMILY HISTORY: Not reviewed. REVIEW OF SYSTEMS: She had 10 systems reviewed and told me she was doing great until earlier today with this wound infection. Electronically Signed By: CATARINO ZAMBRANO MD 02/24/19 0605 PATIENT NAME: JESSIE CUEVAS CONSULTATION DATE OF : 61 REPORT #: [id number] PHYSICIAN: CATARINO ZAMBRANO MD PCP: Ian RICHEY DO REPORT IS CONFIDENTIAL AND NOT TO BE RELEASED WITHOUT AUTHORIZATION [facility] [address] [place], [place] [address] Signed ALLERGIES: Adhesive tape and Plavix. MEDICATIONS: Humira and aspirin. PHYSICAL EXAMINATION: VITAL SIGNS: T-max is 100.6, blood pressure 150/89, heart rate 91, respiratory rate 18, temperature is 97%. She is 5 feet 2 inches, 82 kg. GENERAL: Jessie is a 54-year-old female lying supine in her ICU bed. She is alert, awake, and interactive. She does not appear systemically ill or toxic. LUNGS: Clear to auscultation bilaterally. HEART: Regular rate and rhythm. ABDOMEN: Obese, but soft. Her wound is intact. She has just a little drainage out of that drain site, but she has erythema, probably 12 to 15 cm in diameter. I pushed on that area and I do not get any pus or fluid out of the drain site currently. LABORATORY DATA: White blood count is 18.5, neutrophils 76, hemoglobin 14, BUN is 35, creatinine 2.2, glucose 135. Urinalysis shows some protein, low bacteria, but white blood cells are negative. Her albumin is 3.9, lactic acid 0.7. Liver function tests are negative. Blood cultures x2 are pending. RADIOGRAPHIC STUDIES: None. ASSESSMENT AND PLAN: Jessie is a 54-year-old, obese, diabetic, immunocompromised female, who now has a subcutaneous lower abdominal wound as described above. We are going to start her on her vancomycin, cefepime, and Flagyl. She has already received some Zosyn. We will get her hydrated overnight and repeat the labs in the morning. We will keep her n.p.o. after midnight and plan on doing incision and drainage tomorrow and washout of the wound. We will pack that wound with Dakin solution. I have reviewed this with Jessie and Dr. Salguero. She has expressed understanding and agrees with the above plan. Catarino Zambrano MD ALB/MODL /[id number] Electronically Signed By: CATARINO ZAMBRANO MD 02/24/19 0605 PATIENT NAME: JESSIE CUEVAS CONSULTATION DATE OF : 61 REPORT #: [id number] PHYSICIAN: CATARINO ZAMBRANO MD PCP: Ian RICHEY DO REPORT IS CONFIDENTIAL AND NOT TO BE RELEASED WITHOUT AUTHORIZATION [facility] [address] [place] [address] Signed cc: Adan Hinds MD Copies: CATARINO ZAMBRANO MD ~ Electronically Signed By: CATARINO ZAMBRANO MD 02/24/19 0605 PATIENT NAME: JESSIE CUEVSA CONSULTATION DATE OF : 61 REPORT #: [id number] PHYSICIAN: CATARINO ZAMBRANO MD PCP: Ian RICHEY DO REPORT IS CONFIDENTIAL AND NOT TO BE RELEASED WITHOUT AUTHORIZATION
--- NOTE | 2019-02-24 10:00 | NUR ---
SPOKE WITH PATIENT IN ROOM. PATIENT STATES SHE LIVES WITH . SHE IS EMPLOYED AND NEEDS A WORK RELEASE FROM DOCTOR. STAFF AWARE. SHE DRIVES. SHE STATES WILL DRIVE HER HOME AT DISCHARGE. SHE IS AMBULATORY WITHOUT ISSUES WITH STAIRS. SHE KNOWS OF NO BARRIERS TO DISCHARGE HOME. SHE HAS A PCP IN [place]. SHE UNDERSTANDS SHE WILL HAVE FOLLOW UP APPT WITH DR ZAMBRANO AND PERHAPS PCP. DISCUSSED TO KNOW DIAGNOSIS, TEST RESULTS, MEDICATION AND SIDE EFFECTS, AND WHO TO CALL WITH QUESTIONS OR CONCERNS AFTER DISCHARGE. NO QUESTIONS AT THIS TIME. WILL FOLLOW NEEDED.
[2019-02-24] MEDS ORDERED: OMEPRAZOLE20 MG PO (14:51)
--- NOTE | 2019-02-24 15:04 | NUR ---
5 ATTEMPTS AT IV WERE DONE PRIOR TO PATIENT GOING TO SURGERY BUT UNSUCCESSFUL. PATIENT OFF TO SURGERY AT 1500. PT STILL HAS 2 IV SITES, BUT ONE WAS BECOMING PAINFUL IN LEFT FOREARM. IV IN AC SITE FLUSHING AND PULLS BLOOD BACK BUT CATHETER IS NOT ADVANCED INTO VEIN COMPLETELY.
--- NOTE | 2019-02-24 16:34 | NUR ---
PATIENT WILL TRANSFER TO MED/SURG AFTER SURGERY. ALL PERSONAL BELONGINGS TAKEN TO ROOM 113, INCLUDING CLOTHING AND CELL PHONE.
--- NOTE | 2019-02-24 17:21 | NUR ---
NEW ADMIT TO THE FLOOR. PT AWAKE, A&OX4. PT ON RA, RESP EVEN AND NON LABORED, SAT LEVEL OF 95%. PT DENIES PAIN AT THIS TIME. PT TOLERATING WATER. CPOX INTACT. VS STABLE. PERSONAL SUPPLIES AND CALL LIGHT WITHIN REACH. ORIENTED PT TO ROOM AND CALL LIGHT. DRESSING TO ABD IS CDI.
--- NOTE | 2019-02-24 17:21 | NUR ---
02/24/19 1721 Asia Sanchez 1621 PT ARRIVED IN PACU AWAKE WITH NO C/O'S. BLOOD SUGAR 115 ON ARRIVAL. ANESTHESIA AWARE. 1635 ICE TO ABD. DRSG CDI. 1644 C/O ABD PAIN 7/10. DILAUDID 0.3MG GIVEN IVP. 1653 PAIN DOWN TO 5/10. DILAUDID 0.3MG GIVEN IVP FOR ABD PAIN. SIPPING ON WATER. 1700 PAIN 4/10. DECLINED PAIN MED AT THIS TIME. 1710 TO ROOM 113. REPORT GIVEN TO KARI CM.
--- NOTE | 2019-02-24 18:00 | NUR ---
PT AWAKE, A&OX4, ON RA RESP EVEN AND NON LABORED. CPOX INTACT, SAT LEVEL 97%. BS STABLE. PT DENIES PAIN AT THIS TIME. DRESSING TO ABD CDI. PT ORDERED DINNER. PT DENIES NEEDS AT THIS TIME. PERSONAL SUPPLIES AND CALL LIGHT WITHIN REACH.
--- NOTE | 2019-02-24 18:52 | NUR ---
PATIENT IN BED, RN IN ROOM. ROWE TAKEN OUT UPON RN REQUEST. CALL LIGHT IN REACH. NO FURTHER NEEDS AT THIS TIME.
--- NOTE | 2019-02-24 18:53 | NUR ---
PT A&OX4. ON RA, RESP EVEN AND NON LABORED. PT REPORTS ABD PAIN IS TOLERABLE. VS STABLE. PT TOLERATED DINNER WELL. ROWE REMOVED BY TOOL CHECKER, PT DTV. PT DENIES NEEDS AT THIS TIME. CALL LIGHT WITHIN REACH.
--- NOTE | 2019-02-24 19:13 | EKG ---
[facility] [address] [facility] [place] [address] Signed Sinus tachycardia Possible Left atrial enlargement Left axis deviation ST \T\ T wave abnormality, consider lateral ischemia Abnormal ECG When compared with ECG of 08-FEB-2019 10:06, Vent. rate has increased BY 42 BPM Confirmed by SARA FAGAN MD ([id number]) on 02/24/2019 7:13:15 PM Electronically Signed By: SARA FAGAN MD 02/24/19 1913 PATIENT NAME: BARBARA CUEVAS Electrocardiogram DATE OF : 61 PHYSICIAN: SARA FAGAN MD REPORT #: [id number] REPORT IS CONFIDENTIAL AND NOT TO BE RELEASED WITHOUT AUTHORIZATION
--- NOTE | 2019-02-24 20:07 | NUR ---
ROUNDED CHARGE. PATIENT IS RESTING IN BED. LEIGH PIERCE PRESENT IN THE ROOM. PATIENT DENIES ANY COMMENTS, QUESTIONS OR CONCERNS. NO NEEDS NOTED. CALL LIGHT IN REACH.
--- NOTE | 2019-02-24 22:18 | NUR ---
PATIENT'S PAIN LEVEL IS COMING DOWN, SHE HAD GONE TO SLEEP, BUT SHE BENT HER ARM AND OCCLUDED HER IV AND THE ALARM WOKE HER UP. PUMP RESTARTED AND PATIENT GOING TO TRY AND GO BACK TO SLEEP. CALL LIGHT IN REACH. MARCK APPEARS TO BE WORKING. SHADOWING ON HER ABD DRESSING. PATIENT HAD A LARGE POST SURGICAL VOID ,BUT DID NOT GET IT IN THE HAT, HAT ADJUSTED, BUT PATIENT VOIDED WELL PER THE SOUND OF THE VOLUME PER TENISHA GERARDO.
--- NOTE | 2019-02-24 23:13 | NUR ---
PATIENT'S PAIN STILL DOING BETTER. PATIENT CALLED BECAUSE HER ALARM WAS GOING OFF O HER IV AGAIN BECAUSE SHE BENT HER ARM. IV RESTARTED, PATIENT'S WANTED HER SCD'S OFF AND I REMOVED THEM FOR HER BECAUSE SHE DID NOT WANT TO WHERE THEM AT THIS TIME. NO OTHER NEEDS NOTED. PATIENT CALL LIGHT IN REACH.
--- NOTE | 2019-02-25 01:09 | NUR ---
PATIENT JUST WENT TO THE RESTROOM WITH THE CHARGE NURSE AND IS VOIDING QUANTITY SUFFICIENT. JIMY BRAGA RN GOT PATIENT BACK TO BED.
--- NOTE | 2019-02-25 01:58 | NUR ---
PATIENT JUST HAD VITALS DONE, ABD DRESSING HAS SOME DRAINAGE UNDER IT, BUT IT IS NOT COMING THROUGH THE DRESSING. PATIENT HAVING NO PAIN AT THIS TIME 2AM IV ANTIBIOTICS HUNG. PATIENT SAIS,"I'M DOING OK." NO C/O PAIN. CALL LIGHT IN REACH.
--- NOTE | 2019-02-25 03:44 | NUR ---
PATIENT NOT HAVING ANY C/O PAIN STILL AND HAS JUST GOT UP AND BACK TO BED WITH BEA THE PRIMER AND POWDER CANNING LEADER. CALL LIGHT IN REACH.
--- NOTE | 2019-02-25 04:49 | NUR ---
PATIENT HAS SLEPT OFF AND ON THROUGH THE NIGHT WITH SPOUSE IN ROOM ASLEEP ON THE COUCH. IV IS RUNNING WNL AND ABD DRESSING DO TO START BEING CHANGED ON DAY SHIFT WE DO NOT HAVE THE DAKINS SOLUTION. MOST UNDER ABD DRESSING, BUT IT LOOKS LIKE MOST OF IT IS DAKINS THAT HAS LEAKED THROUGH, BUT HAS NO COME ALL THE WAY THROUGH THE DRESSING. PATIENT VOIDING WELL, WEARING SCD'S, AND HAS NOT NEEDED ANY PAIN MEDICATION SCINCE HER NORCO AT THE BEGINING OF THE SHIFT. VS STABLE AND STABLE ON C-POX ON ROOM AIR. CALL LIGHT IN REACH.
--- NOTE | 2019-02-25 05:56 | OR ---
[facility] [address] [place], [place] [address] Signed DATE OF OPERATION: 02/24/2019 SURGEON: Catarino Zambrano MD PREOPERATIVE DIAGNOSES: 1. Subcutaneous postoperative abdominal wall wound infection. 2. Immunocompromised patient. POSTOPERATIVE DIAGNOSES: 1. Subcutaneous postoperative abdominal wall wound infection. 2. Immunocompromised patient. PROCEDURES PERFORMED: 1. Incision and drainage of subcutaneous abdominal wound infection/abscess. 2. Deep wound cultures. ESTIMATED BLOOD LOSS: None. FINDINGS: Jessie had 20-30 mL of pus in that subcutaneous space. INDICATIONS: Jessie is a 54-year-old female, who for financial reason tells us she does not take her medications including that for the diabetes. However, she does use Humira for her rheumatoid arthritis. She actually laparoscopic hysterectomy earlier this year, but because the bowel was adherent to the uterus she went over to [facility]. She underwent an open hysterectomy. That wound had gotten infected and broke down and it required our day surgery staff to help her. She used a wound VAC at that time and it eventually healed on secondarily. However, she had recurring skin breakdown and fluid egress from that area. Consequently she was referred to my office as a general surgeon. I explained to Jessie there was most likely a foreign body reaction of some kind or sinus tract with granulation tissue or both. I explained to Jessie that would not heal until completely excised. We decided we would close that primarily, place a drain in the subcutaneous space. She actually did very well and I just saw her about 3 days ago in the office. She looked great to remove the drain. Two days later, she had called with pain and erythema over the abdominal wall and fevers. Given her immunocompromised state, we had her go in the emergency room. The ER doctor called me later that evening and so I came in. We admitted her to our ICU with help from our Internal Medicine Service, specifically with respect to the diabetes. We Electronically Signed By: CATARINO ZAMBRANO MD 02/25/19 0556 PATIENT NAME: JESSIE CUEVAS OPERATIVE REPORT DATE OF : 61 REPORT #: [id number] PHYSICIAN: CATARINO ZAMBRANO MD PCP: Ian RICHEY DO REPORT IS CONFIDENTIAL AND NOT TO BE RELEASED WITHOUT AUTHORIZATION [facility] [address] [place] [id number] Signed placed her on triple antibiotics to include vancomycin, cefepime, and Flagyl. Her renal function was off and her white count was elevated at 18.5. We took blood cultures as well. Lactic acid was good at 0.7. We hydrated overnight and I explained to Jessie, I would add her onto my follow. She understands we are going to open the midportion of that wound and we will evacuate all that out, and we are going to pack that wound with Dakin solution for about 4 days or so until it is completely sterile and we will switch over to saline. Specifically, she asked me not to use the wound VAC. I explained to Jessie this will heal on secondarily as it did before and she will be much more mobile without the pump used for the wound VAC. Once we have her final cultures, then we can narrow our antibiotic coverage. She had expressed understanding and wished to proceed. PROCEDURE NOTE: I met with Jessie in preop area. I can see she looks and feels much better. Certainly, her skin is much better. She has nice yellow urine in her Jasso catheter. She still has 15 cm of erythema around the infraumbilical midline incision. After answering her questions, then we took her into the operating room. Jessie was placed in the supine position under general LMA anesthesia. She was already on preoperative antibiotics along with subcutaneous heparin. SCDs were in place. A Jasso catheter was already in place. She was then prepped and draped in the usual sterile fashion. We used a #15 blade knife and we opened the midportion of that incision, which runs between the umbilicus and the pubic bone in the midline. Sure enough it was full of pus, probably 20 or 30 mL. We took deep wound cultures and evacuated the pus completely. The wound was irrigated with copious amounts of warm antibiotic saline solution. We also irrigated up the tract of the drain site from the skin all the way back into the wound itself. After this, the wound was packed with 4-inch Kerlix gauze roll soaked in full strength Dakin solution. This was covered with dry gauze and dry ABD. After this, Jessie was awakened from anesthesia, extubated in the OR, and taken to recovery room in stable condition. Catarino Zambrano MD ALB/TASNEEML /[id number] cc: Ian Richey DO Electronically Signed By: CATARINO ZAMBRANO MD 02/25/19 0556 PATIENT NAME: JESSIE CUEVAS OPERATIVE REPORT DATE OF : 61 REPORT #: [id number] PHYSICIAN: CATARINO ZAMBRANO MD PCP: Ian RICHEY DO REPORT IS CONFIDENTIAL AND NOT TO BE RELEASED WITHOUT AUTHORIZATION [address] [place], [place] [address] Signed Catarino Zambrano MD Copies: Ian RICHEY ANDREW L MD ~ Electronically Signed By: CATARINO ZAMBRANO MD 02/25/19 0556 PATIENT NAME: JESSIE CUEVAS OPERATIVE REPORT DATE OF : 61 REPORT #: [id number] PHYSICIAN: CATARINO ZAMBRANO MD PCP: Ian RICHEY DO REPORT IS CONFIDENTIAL AND NOT TO BE RELEASED WITHOUT AUTHORIZATION
--- NOTE | 2019-02-25 07:42 | NUR ---
REPORT RECIEVED FROM [employer] RN. PT IN BED. ALERT AND ORIENTED. REPORTS PAIN 3/10 TOLERABLE. CALL LIGHT IN REACH. DENIES NEEDS.
--- NOTE | 2019-02-25 09:11 | NUR ---
PT HAD SHOWER. PT SITTING UP IN CHAIR. PT HAS NO NEEDS AT THIS TIME.
--- NOTE | 2019-02-25 09:30 | NUR ---
DRESSING DC'D FOR PATIENT SHOWER. PT TOLERATED WELL. PACKING REMOVED. IV RESTARTED IN RIGHT UPPER ARM D/T LEFT IV INFILTRATING.
--- NOTE | 2019-02-25 10:00 | NUR ---
PACKING SOAKED ON DAKINS SOLUTION PACKED INTO WOUND. GAUZE AND ABD APPLIED OVER TOP.
--- NOTE | 2019-02-25 10:32 | NUR ---
MED REC COMPLETE
--- NOTE | 2019-02-25 12:28 | NUR ---
SPOKE WITH PATIENT IN ROOM. SHE STATES SHE THINKS SHE CAN DO DRESSING CHANGES AT HOME, AND COME IN TO DAY SURGERY FOR HELP OR A COUPLE TIMES A WEEK FOR THEM TO CHECK THE WOUND. SHE WANTS TO DO THIS SO SHE CAN RETURN TO WORK. DISCUSSED THAT WOUND CARE NURSE WILL SEE HER AND SET UP A SUGGESTED PROGRAM. SHE IS IN AGREEMENT WITH THIS.
--- NOTE | 2019-02-25 17:30 | NUR ---
SHIFT REPORT RECEIVED FROM [facility] KARI BLACKMAN AT BEDSIDE. PT AWAKE AND RESTING IN BED, ALLEVYN TO LOWER ABDOMINAL AREA, INTACT. SCANT TO MODERATE PURULENT SHADOWING NOTED. ALLEVYN TO RIGHT LOWER QUADRANT CDI. PT DENIES PAIN. IV ABX INFUSING PER MD ORDERS, SITE WNL. PT DENIES NEEDS, CALL LIGHT IN REACH.
--- NOTE | 2019-02-25 18:00 | NUR ---
PT OUT AMBULATING HALLS WITH SBA.
--- NOTE | 2019-02-25 19:07 | NUR ---
DRESSING CHANGE COMPLETED PER ORDER. PT TOLERATED WELL. COLLEGE PLACE PROVIDED FOR POST PROCEDURE PAIN. PT OUT TO AMBULATE HALLS WITH SBA.
--- NOTE | 2019-02-25 21:30 | NUR ---
ASSESSMENT COMPLETE, SCHEDULED MEDICATIONS GIVEN (SEE EMAR). BLOOD SUGAR WNL, NO INSULIN SS ADMINISTERED. DISCUSSED WITH PT S/SX OF LOW BLOOD SUGAR, PT VERBALIZED UNDERSTANDING. ALLEVYN X2 IN PLACE. SCANT PURULENT SHADOWING NOTED TO ALLEVYN, WILL MONITOR. PANNUS AREA AROUND ALLEVYN WARM AND REDDENED.ALLEVYN FROM DEMETRI DRAIN CDI. NO FURTHER NEEDS, CALL LIGHT IN REACH.
--- NOTE | 2019-02-25 23:30 | NUR ---
PT RESTING IN BED, APPEARS COMFORTABLE. EYES CLOSED, RR WNL. CALL LIGHT IN REACH.
--- NOTE | 2019-02-26 03:00 | NUR ---
SCHEDULED IV ABX INFUSING PER MD ORDERS, IV SITE WNL. PT DENIES PAIN OR ADDITIONAL NEEDS, CALL LIGHT IN REACH. FAMILY IN ROOM.
--- NOTE | 2019-02-26 05:21 | NUR ---
ASSESSMENT COMPLETE, NO NEW CHANGES OR CONCERNS. MODERATE PURULENT SHADOWING NOTED TO ALLEVYN BELOW UMBILLICUS, WILL MONITOR. NO LEAKING NOTED, SCHEDULED DRESSING CHANGE THIS UPCOMING AM. IV FLUIDS INFUSING PER MD ORDERS, PT DENIES NAUSEA. BOWEL TONES ACTIVE, PT DECLINED S/SX OF HYPOGLYCEMIA. WILL CONTINUE TO MONITOR. NO FURTHER NEEDS, CALL LIGHT IN REACH.
--- NOTE | 2019-02-26 07:45 | NUR ---
SBA TO CHAIR FOR BREAKFAST. PT DENIES PAIN AT THIS TIME. CALL LIGHT IN REACH.
--- NOTE | 2019-02-26 08:02 | NUR ---
MAX KUHN CALLED FOR UPDATE ON PLAN OF CARE. PATIENT OK'D INTFORMATION TO BE DICUSSED WITH MAX. QUESTIONS ANSWERED ABOUT DRESSING CHANGES AND PLAN OF CARE AFTER DISCHARGE. CURRENT RESULTS OF LABS AND ANTIBIOTICS DISCUSSED.
--- NOTE | 2019-02-26 08:17 | NUR ---
REPORT RECEIVED BY RN. PATIENT SITTING IN CHAIR WITH FEET ELEVATED. LR RUNNING AT 50 MLS/HR. PATIENT DENIES PAIN. POC DISCUSSED WITH PATIENT, NO FURTHER NEEDS AT THIS TIME. CALL LIGHT WITHIN REACH.
--- NOTE | 2019-02-26 09:04 | NUR ---
SHIFT SUMMARY: PT NIGHT UNEVENTFUL, LITLE TO NO CONCERN. NOT MUCH CHANGE TP PT'S HEAD TO TOE. GLUCOSE 121 @ 0800. NO INSULIN GIVEN. MEDS GIVE WERE 81 MG ASPRI, 40 MG SUB-Q [id number], GLIPISIDE, 40 MG PANTOPRAZOLE SODIUM AND RAN FLAGGLE WITH NS @ RATE OF 200ML FOR 30 MINS. ALL MEDS GIVEN 0820. PT IDICATES NO PAIN. DRESSSING CHANGE DUE AFTER SHOWER CLOSER TO NOON.
--- NOTE | 2019-02-26 10:45 | NUR ---
DR. FAGAN IN ROOM TO DISCUSS POC WITH PATIENT. DENIES PAIN AT THIS TIME. NEW ORDERS ACKNOWLEDGED TO D/C ABX AND LR, WELL ADD 25MG METOPROLOL. PATIENT PREMEDICATED WITH PRN PAIN MEDICATION PRIOR TO DRESSING CHANGE. NO FURTHER NEEDS AT THIS TIME, CALL LIGHT WITHIN REACH.
--- NOTE | 2019-02-26 11:30 | NUR ---
PATIENT SHOWERED AND NEW DRESSING IS APPLIED. WOUND IS CLEANED WITH WOUND CLEANSER AND PACKED WITH IODOFORM, ALLEVYN PLACED OVER WOUND. PATIENT AMBULATED HALLS AND RETURNED TO HER CHAIR. DENIES PAIN AT THIS TIME, NO FURTHER NEEDS AT THIS TIME. CALL LIGHT WITHIN REACH.
--- NOTE | 2019-02-26 14:45 | NUR ---
PATIENT SITTING IN CHAIR WITH FEET ELEVATED ON THE PHONE. DENIES NEEDS AT THIS TIME, CALL LIGHT WITHIN REACH.
--- NOTE | 2019-02-26 17:01 | NUR ---
PATIENT SITTING UP IN BED, SALINE LOCKED. DINNER DELIVERED, BS OF 131, NO INSULIN REQUIRED. ASSESSMENT COMPLETE. PATIENT DENIES ANY NEEDS AT THIS TIME, CALL LIGHT WITHIN REACH.
--- NOTE | 2019-02-26 19:00 | NUR ---
DRESSING CHANGE DONE PER ORDER. DAKEN SOAKED CURLEX PACKED IN WOUND, COVERED WITH GAUZE, AND TAPED. PATIENT PREMEDICATED PRIOR TO DRESSING CHANGE WITH PRN PAIN MEDICATION. DENIES ANY NEEDS AT THIS TIME, CALL LIGHT WITHIN REACH.
--- NOTE | 2019-02-26 19:06 | NUR ---
RECIEVED REPORT FROM KARI SCHMITT. pt RESTING IN BED. NO REQUESTS AT THIS TIME. DENIES PAIN. WHITEBOARD UPDATED. CALL LIGHT WITHIN REACH.
--- NOTE | 2019-02-26 21:00 | NUR ---
ASSESSMENT DONE. pt DENIED PAIN AT THIS TIME. pt AMBULATED IN SALDIVAR PRIOR TO ASSESSMENT. DRESSING CDI. NO REQUESTS AT THIS TIME. CALL LIGHT WITHIN REACH.
--- NOTE | 2019-02-26 23:37 | NUR ---
ROUNDED ON pt. RESTING WITH EYES CLOSED, RESPIRATIONS REGULAR AND UNLABORED. CALL LIGHT WITHIN REACH.
--- NOTE | 2019-02-27 02:22 | NUR ---
ROUNDED ON pt. RESTING IN BED. NO REQUESTS AT THIS TIME. CALL LIGHT WITHIN REACH.
--- NOTE | 2019-02-27 04:29 | NUR ---
ROUNDED ON pt. RESTING WITH EYES CLOSED, RESPIRATIONS REGULAR AND UNLABORED. CALL LIGHT WITHIN REACH.
--- NOTE | 2019-02-27 05:01 | NUR ---
pt RESTED MOST OF SHIFT. ACCU CHECK TOLERATING 60gm CARB DIET. AMBULATED IN HALLWAY, INDEPENDENT IN ROOM. IV SL. DRESSING TO ABD CDI. HAS NOT NEEDED PAIN MEDICATION. USES CALL LIGHT APPROPRIATELY.
--- NOTE | 2019-02-27 06:30 | NUR ---
ASSESSMENT DONE. DRESSING CHANGE PER ORDERS. VITALS AND I&O RECORDED. THERAPEUTIC COMMUNICATION. CALL LIGHT WITHIN REACH.
--- NOTE | 2019-02-27 07:18 | NUR ---
BEDSIDE REPORT RECEIVED PT RESTING EYES CLOSED APPEARS COMFORTABLE
--- NOTE | 2019-02-27 07:49 | NUR ---
DR ZAMBRANO IN TO SEE PT, DISCUSSES PLAN GOING FORWARD, ASSESS WOUND.
[2019-02-27] MEDS ORDERED: GLIPIZIDE ER2.5 MG PO (10:55)
[2019-02-27] MEDS ORDERED: LIPITOR80 MG PO (10:55)
[2019-02-27] MEDS ORDERED: METOPROLOL SUCC25 MG PO (10:55)
[2019-02-27] MEDS ORDERED: DOXYCYCLINE HY100 MG PO (10:56)
--- NOTE | 2019-02-28 07:52 | DS ---
[facility] [address] [place], [place] [address] Signed ADMISSION DATE: 02/23/2019 DISCHARGE DATE: 02/27/2019 FINAL DIAGNOSES: 1. Postoperative subcutaneous abdominal wall wound infection with routine Staph aureus. 2. Uncontrolled diabetes. 3. Hypertension. 4. Hyperlipidemia. 5. Coronary artery disease. 6. Rheumatoid arthritis, on Humira. PROCEDURES: Incision and drainage of suprapubic abdominal wall wound. HISTORY OF PRESENT ILLNESS: Jessie is a 54-year-old lady with uncontrolled diabetes and on Humira for her rheumatoid arthritis. She underwent an initial attempt at laparoscopic hysterectomy this year. She did have small bowel involved with her uterus, so she ended up at [facility]. She underwent an open hysterectomy at that time. The wound required packing initially and later a wound VAC. She had continued recurrent drainage through the midportion of the wound consistent with a sinus tract and/or foreign body reaction. We are taking her to surgery little more than 2 weeks ago to excise the skin and underlying adipose tissue. To the human eye, it looked actually pretty good, but on the pathologic review, one could see the foreign body reaction in the foreign body and the tissue. We left a drain in place and I saw her in the office 2 days prior to this admission. She was doing great and we had removed the drain. She called with high fevers and we had her go to the emergency room due to her immunocompromised state. Sure enough, she developed a wound infection, so we admitted her to the hospital. HOSPITAL COURSE: Jessie was admitted as above and started on vancomycin, cefepime, and Flagyl. She was hydrated and I had our medical service see her. She has done well to get her blood sugars under control along with her blood pressure and her hyperlipidemia. We incised and drained that wound and took our deep cultures and sure enough she came back routine Staph aureus with multiple sensitivities. She is now on day #5 of the vancomycin. We had stopped the cefepime and Flagyl yesterday. There is no longer any surrounding erythema whatsoever to the abdominal wall. It is quite soft and supple. There is no odor. There is no drainage. There is no warmth. The wound itself is nice and clean and remains open. We used a gauze packing with full strength Dakin solution. We are now going to switch that over to saline soaked gauze. come back and we are going to allow her to go home on doxycycline 100 mg p.o. b.i.d. for a full 15 days. Electronically Signed By: CATARINO ZAMBRANO MD 02/28/19 0752 PATIENT NAME: JESSIE CUEVAS DISCHARGE SUMMARY DATE OF : 61 REPORT #: [id number] PHYSICIAN: CATARINO ZAMBRANO MD PCP: Ian RICHEY DO REPORT IS CONFIDENTIAL AND NOT TO BE RELEASED WITHOUT AUTHORIZATION [address] [address] Signed Consequently, she will have a 10-day prescription. DISCHARGE PLANS AND MEDICATIONS: Jessie is going to be discharged to home with doxycycline 100 mg p.o. b.i.d. We will dispense 20 tablets with no refills. She has been started on glipizide 2.5 mg p.o. daily and we will dispense 30 tablets with one refill. She is actually doing well on that with blood sugars around 117. She started on metoprolol-XL 25 mg p.o. daily, dispense 30 tablets with one refill. Her systolic blood pressures are still running in the 140s to 160s. She was started on atorvastatin 80 mg p.o. daily. We will dispense 30 tablets with one refill. She will need to follow up with her primary care provider. We have also asked her to take aspirin 81 mg p.o. daily, which she can purchase [id number] due to her coronary artery disease. We will dispense normal saline for her wound care 1 L with 10 refills. She can purchase 4 x 4 gauze over the counter at any pharmacy. She can lightly tape the area or better yet she could simply buy a woman's vale-pad and place it over that area and wear her underwear and hold that in place to keep her skin soft and supple. When she removes the gauze, she can wash with shampoo, soap, and water directly into the wound and dry gently and repack the wound. I will be seeing her back in the office here in 5 to 7 days for followup. She wants to return to work on , the . That will be fine, but she is not to do any heavy pushing, pulling, or lifting over about 25 pounds. We have encouraged her to follow a 2000 calorie ADA diet. She is going to follow up with her primary care provider, Robin Richey, in next 1 to 3 weeks with respect to her medical issues. She has insurance coverage, but she said that Humira is around 800 dollars a month, but apparently she is in a program now where it is down to around 40 dollars a month for her and so she is encouraged if she will be able to purchase her other medications. I asked her to work this out with her primary care provider. She has expressed understanding and agrees with above plan. Catarino Zambrano MD ALB/MODL /[id number] cc: DO Catarino Hinds MD Electronically Signed By: CATARINO ZAMBRANO MD 02/28/19 0752 PATIENT NAME: JESSIE CUEVAS DISCHARGE SUMMARY DATE OF : 61 REPORT #: [id number] PHYSICIAN: CATARINO ZAMBRANO MD PCP: Ian RICHEY DO REPORT IS CONFIDENTIAL AND NOT TO BE RELEASED WITHOUT AUTHORIZATION [address] [address] Signed Copies: CATARINO ZAMBRANO MD ~ Electronically Signed By: CATARINO ZAMBRANO MD 02/28/19 0752 PATIENT NAME: JESSIE CUEVAS DISCHARGE SUMMARY DATE OF : 61 REPORT #: [id number] PHYSICIAN: CATARINO ZAMBRANO MD PCP: Ian RICHEY DO REPORT IS CONFIDENTIAL AND NOT TO BE RELEASED WITHOUT AUTHORIZATION
== END 2019-02-27 11:30 | disposition home or self-care (01) | DRG 856 ==
LOC: ED 16:35 → CCU 19:39 → MS 02-24 16:58
PROVIDERS: ADMIT Colon & Rectal Surgery
PROC: 0J980ZZ Drainage of Abdomen Subcutaneous Tissue and Fascia, Open Approach (ICD-10-PCS; principal; 2019-02-24 14:00)
DX: T81.41XA Infection following a procedure, superficial incisional surgical site, initial encounter (principal); A41.01 Sepsis due to Methicillin susceptible Staphylococcus aureus; R65.20 Severe sepsis without septic shock; L03.311 Cellulitis of abdominal wall; L02.211 Cutaneous abscess of abdominal wall; N17.9 Acute kidney failure, unspecified; E66.9 Obesity, unspecified; M06.9 Rheumatoid arthritis, unspecified; I25.10 Atherosclerotic heart disease of native coronary artery without angina pectoris; E11.22 Type 2 diabetes mellitus with diabetic chronic kidney disease; N18.3 Chronic kidney disease, stage 3 (moderate); F17.200 Nicotine dependence, unspecified, uncomplicated; E78.5 Hyperlipidemia, unspecified; Z91.14 Patient's other noncompliance with medication regimen; Z95.5 Presence of coronary angioplasty implant and graft; Z88.8 Allergy status to other drugs, medicaments and biological substances; Z79.82 Long term (current) use of aspirin; Z79.4 Long term (current) use of insulin; Z79.899 Other long term (current) drug therapy; Z68.35 Body mass index [BMI] 35.0-35.9, adult
CPT/HCPCS: 00400; 36415; 51702; 80048; 80053; 80061; 80202; 81001; 83036; 83605; 83735; 84100; 85007; 85025; 85032; 90688; 93005; 93010; 96361; 96365; 99284-25; 99406; C9113; J0692; J1170; J1650; J1815; J2250; J2405; J2543; J2704; J3370; J3475; J7030; J7060; J7120

== ENCOUNTER 2019-11-29 22:11 | Emergency (ER) | payer OTHER ==
[~2019-11-29] VITALS: Ht 157.5 cm; Wt 90.7 kg
--- OUTSIDE RECORDS SUMMARY | ~2019-11-29 | XMS | Encounter Summary ---
Demographics + + + | Address | [address] | | | [place] [address] | + + + | Home Phone | | + + + | Preferred Language | Unknown | + + + | Marital Status | | + + + | Hindu Affiliation | Unknown | + + + | Race | Unknown | + + + | Ethnic Group | Unknown | + + + Author + + + | Author | [facility] | | | and [place] | + + + | Organization | [facility] | | | and [place] | + + + | Address | Unknown | + + + | Phone | Unavailable | + + + Support + + +---------+ + | Name | Relationship | Address | Phone | + + +---------+ + | Carlos | ECON | Unknown | | | Petr | | | | + + +---------+ + Care Team Providers + +------+ + | Care Painting Department Supervisor Name | Role | Phone | + +------+ + | Kyle Richey DO | PCP | | + +------+ + Reason for Visit + + + | Reason | Comments | + + + | Follow-up | | + + + | Coronary Artery | | | Disease | | + + + | Hypertension | | + + + Encounter Details +--------+---------+ + + + | Date | Type | Department | Care Team | Description | +--------+---------+ + + + | 01/17/ | Office | [facility] | Marissa Rouse, | Other chest pain | | 2016 | Visit | CARDIOLOGY [address] | (Primary Dx) | | | | [place], | [place], | | | | | [place] [address] | [place] [address] | | | | | [phone] | [phone] | | | | | | | | +--------+---------+ + + + Social History + + + +--------+ + | Tobacco Use | Types | Packs/Day | Years | Date | | | | | Used | | + + + +--------+ + | Former Smoker | Cigarettes | | | Quit: 06/11/2012 | + + + +--------+ + + +---+---+---+ | Smokeless Tobacco: | | | | | Never Used | | | | + +---+---+---+ + + +---------+ + | Alcohol Use | Drinks/Week | oz/Week | Comments | + + +---------+ + | No | 0 Standard drinks | 0.0 | | | | or equivalent | | | + + +---------+ + + + + | Sex Assigned at | Date Recorded | | | | + + + | Not on file | | + + + documented as of this encounter Last Filed Vital Signs + + + + + | Vital Sign | Reading | Time Taken | Comments | + + + + + | Blood Pressure | 136/74 | 01/18/2016 3:10 PM | left arm | | | | PDT | | + + + + + | Pulse | 88 | 01/18/2016 3:10 PM | regular | | | | PDT | | + + + + + | Temperature | - | - | | + + + + + | Respiratory Rate | 16 | 01/18/2016 3:10 PM | | | | | PDT | | + + + + + | Oxygen Saturation | - | - | | + + + + + | Inhaled Oxygen | - | - | | | Concentration | | | | + + + + + | Weight | 95.2 kg (209 lb 12.8 | 01/18/2016 3:10 PM | | | | oz) | PDT | | + + + + + | Height | 157.5 cm (5' 2") | 01/18/2016 3:10 PM | | | | | PDT | | + + + + + | Body Mass Index | 38.37 | 01/18/2016 3:10 PM | | | | | PDT | | + + + + + documented in this encounter Progress Notes Marissa Rouse MD - 01/18/2016 3:20 PM PDTFormatting of this note might be different f rom the original. PATIENT NAME: Jessie Casarez : 1965: AGE: 50 y.o. PRIMARY CARE: Kyle Richey DO OUTPATIENT FOLLOW UP VISIT Date of Service: 01/18/2016 HISTORY OF PRESENT ILLNESS: Jessie Casarez is a 50 y.o. female with a history of coronary artery disease post non-STEM I post PTCA and stent of RCA by Dr. Bell on 11/23/15, type II diabetes, hypertension, hyperl ipidemia, obesity, stage III chronic kidney disease, noncompliant, suspecting obstructive sl eep apnea . She is being seen today for follow up CAD. She was last seen 12/07/2015 at which time therapeutic lifestyle change was recommended and she was enrolled to the phase II cardiac rehab program. Since that time, she had been walki ng more at work about 2 blocks between work shift. She has been eating about 6 hours a nigh t. She tried to increase the amount of salt and fresh fruit. She had been feeling good unt il this morning when she has a "poke feeling" on her chest that was brief and not severe. Patient denies breathlessness. There is no palpitation dizziness or lightheadedness. There is no ankle or leg swelling. Patient can sleep on one pillow at night without difficulty b reathing. MEDICAL, SURGICAL, AND PERSONAL HISTORY Past Medical, Surgical, Family, and Social History are reviewed in EPIC. CURRENT PROBLEMS Patient Active Problem List Diagnosis Extrapulmonary TB (tuberculosis) RA (rheumatoid arthritis) Pleural effusion CAD (coronary artery disease) CKD (chronic kidney disease) COPD (chronic obstructive pulmonary disease) Chronic cough Absolute anemia Adiposity Gastroesophageal reflux disease without esophagitis DES (obstructive sleep apnea) Arthralgia of hip Non-ST elevation myocardial infarction (NSTEMI), initial episode of care Elevated troponin I level Uncontrolled diabetes mellitus with hyperglycemia Acute kidney injury superimposed on chronic kidney disease Suspected sleep apnea Microcytic anemia Leukocytosis, unspecified type Acute coronary syndrome CURRENT MEDICATIONS Current Outpatient Prescriptions Medication Sig Dispense Refill adalimumab (HUMIRA PEN) 40 mg/0.8 mL injection (pen) Inject 0.8 mLs under the skin ever y 7 days. ANUCORT-HC 25 MG suppository Insert 1 suppository every 4-6 hours as needed 0 aspirin 81 mg chewable tablet Take 81 mg by mouth Daily. atorvaSTATin (LIPITOR) 20 mg tablet Take 1 tablet by mouth nightly. 30 tablet 0 HYDROcodone-acetaminophen (NORCO) 5-325 mg per tablet Take 1 tablet by mouth every 4 ho urs as needed for Pain. 20 tablet 0 lisinopril (PRINIVIL, ZESTRIL) 10 mg tablet Take one tablet daily 0 metFORMIN (GLUCOPHAGE) 500 mg tablet Take one tablet twice daily 0 metoprolol tartrate (LOPRESSOR) 50 mg tablet Take 1 tablet by mouth 2 times daily. 60 t ablet 0 nitroglycerin (NITROSTAT) 0.4 mg SL tablet Take one tablet under tongue as needed for c hest pain, may repeat every 5 minutes up to 3 doses. If no relief after 3rd dose, call 911 25 tablet 11 prasugrel (EFFIENT) 10 mg TABS Take 1 tablet by mouth Daily. 90 tablet 3 tiotropium (SPIRIVA) 18 mcg inhalation capsule Inhale 1 capsule into the lungs Daily. 9 0 capsule 3 No current facility-administered medications for this visit. ALLERGIES Allergies Allergen Reactions Albuterol Other (See Comments) Gives her a headache ROS ROS OBJECTIVE: PHYSICAL EXAM BP 136/74 mmHg | Pulse 88 | Resp 16 | Ht 1.575 m (5' 2") | Wt 95.165 kg (209 lb 12.8 oz) | BMI 38.36 kg/m2 Physical Exam Constitutional: She appears well-developed and well-nourished. No distress. Obese female individual without acute distress, accompanied by her boyfriend. Neck: Normal carotid pulses, no hepatojugular reflux and no JVD present. Carotid bruit is n ot present. Cardiovascular: Normal rate, regular rhythm, S1 normal, S2 normal, normal heart sounds, int act distal pulses and normal pulses. PMI is not displaced. Exam reveals no gallop, no S3, no S4 and no friction rub. No murmur heard. Pulses: Carotid pulses are 2+ on the right side, and 2+ on the left side. Dorsalis pedis pulses are 2+ on the right side, and 2+ on the left side. Pulmonary/Chest: Effort normal and breath sounds normal. No accessory muscle usage. No resp iratory distress. She has no wheezes. She has no rhonchi. She has no rales. Abdominal: Normal appearance, normal aorta and bowel sounds are normal. She exhibits no abd ominal bruit. There is no hepatosplenomegaly. There is no tenderness. Musculoskeletal: She exhibits no edema. Neurological: She is alert. Gait normal. Skin: Skin is warm and dry. Psychiatric: She has a normal mood and affect. Her mood appears not anxious. She does not e xhibit a depressed mood. ECG: Sinus rhythm, left atrial enlargement. LAB RESULTS reviewed during visit today primarily from [facility]: LIPID Lab Results Component Value Date CHOL 257* 11/20/2015 TRIG 304* 11/20/2015 HDL 50 11/20/2015 LDL 146* 11/20/2015 CHOLHDL 5.1 11/20/2015 CHEMISTRY Lab Results Component Value Date GLU 145* 11/24/2015 GLUEX 129* 01/16/2016 NA 138 11/24/2015 NAEX 137 01/16/2016 K 4.0 11/24/2015 KEX 4.2 01/16/2016 CL 109 11/24/2015 CLEX 108 01/16/2016 CO2 21* 11/24/2015 CO2EX 16* 01/16/2016 CALCIUM 7.8* 11/24/2015 ALKPHOS 69 11/20/2015 AST 46* 11/20/2015 ASTEX 22 09/08/2014 ALT 40 11/20/2015 ALTEX 20 09/08/2014 BILITOT 0.6 11/20/2015 CREA 1.65* 11/24/2015 BUN 15 11/24/2015 EGFREX 31* 01/16/2016 CREEX 1.71* 01/16/2016 HEMATOLOGY Lab Results Component Value Date WBC 14.6* 11/24/2015 WBCEX 13.3* 09/08/2014 HGB 7.7* 11/24/2015 HGBEX 10.3* 09/08/2014 HCT 26.7* 11/24/2015 PLT 258 11/24/2015 PLTEX 291 09/08/2014 Above data and testing is reviewed this visit; testing below is historical data unless othe rwise specified. ASSESSMENT: 1. Coronary artery disease/non-STEMI A. Post non-STEMI. Left heart cath on 11/21/12 showed 95% stenosis of the LCx, 20-30% stenosis of the proximal RCA. Status post PTCA and stentsx2 of the LCx .Since that time, she saw a animal care supervisor for couple times and loss of follow-up. B. Echocardiogram on 11/20/15 showed Mild biatrial dilatation. Maria l left ventricular size, wall thickness and motion. Preserved left ventricular systolic func tion. LVEF is 60%. Normal valvular structure. Normal right-sided pressure. Normal IVC with n ormal respiratory collapse. C. She started having a chest pain on 11/17/15 while she was working at the [email or web address]. She described it as a chest pressure /10 that radiated across the chest wa ll and was associated some shortness of breath. No palpitation, dizziness or lightheadedne ss. No sweating. She waited until 11/19/15 when she had recurrent bad chest pain that too k her to the ED of [facility] in [place]. She was found to have blood sugar of almost 1000 and troponin of 0.5. She was transferred to [facility]. D. Left heart cath on 11/21/15 showed Coronary artery disease; tight 90% stenosis at the midportion of the large caliber RCA with ANUJA grade 3 flow. There is also a borderline lesions at the distal portion of the LCx and proximal portion of D1. There is a co dominate circulation. Normal LV systolic function with an EF of 65%. Systemic blood pressure is moderately elevated. E. Status post PTCA and stent of the mid RCA by on 11/23/15 . F. Patient status post PCI of the mid RCA by Dr. Bell on 11/23/15 . G. Today, patient is doing well from cardiac standpoint. She had been walking more at wor k about 2 blocks between work shift. She has been eating about 6 hours a night. She tried to increase the amount of salt and fresh fruit. She had been feeling good until this mornin g when she has a "poke feeling" on her chest that was brief and not severe. There is no signs and symptoms of overt congestive heart failure. She is in a class II of [place] [employer] functional class. There is no fluid re tention on physical examination. She is on a combination of aspirin, Lovenox, metoprolol , lisinopri l, Effient and atorvastatin. 2. Hypertension A. Blood pressure iswell-controlled 3. Type II diabetes/noncompliant with medication A. She is known to have history of type II diabetes. She was pr escribed on metformin 500 mg twice a day starting in July,. Patient has not started metformin. She is not on diet control either. She doesn't believe that diabetes is real for her. B. She is back on metformin. 4. Rheumatoid arthritis A. She has a history of rheumatoid arthritis and received Humira on ce weekly by Dr. Castillo in [place]. 5. Acute kidney injury on top of the stage III chronic kidney disease A. She also seen a roll tester at [facility] but recently los t follow-up. B. EGFR is 33. 6. Obesity A. She has been walking and eating better. She lost 6 pounds of w eight in the past 2 weeks. 7. Inactivity 8. Noncompliance. A. She is not taking medication as directed. 9. Hyperlipidemia A. She is now on Lipitor. 10. Suspecting obstructive sleep apnea A. Patient has 4/8 on stop bag questionnaire. Awaiting sleep study. PLAN: 1. I offer stress test to assess "poke feeling" on her chest. She is assisted tight and s ee if happens again. 2. I continued to emphasize on a therapeutic lifestyle change including walking 30 minutes a day, choosing healthy choices of diet , including DASH diet and weight reduction. 3. She will follow through with phase II cardiac rehab program. 4. Follow-up in 6 months. Electronically signed by: Marissa Rouse MD [facility] 01/18/2016 Portions of this chart may have been created with [employer] voice recognition software. Occasi onal wrong-word or sound-alike substitutions may have occurred due to the inherent mary itations of voice recognition software. Please read the chart carefully and recognize, using context, where these substitutions have occurred. documented in this encounter Plan of Treatment Not on filedocumented as of this encounter Procedures + +--------+ + + + | Procedure Name | Priori | Date/Time | Associated Diagnosis | Comments | | | ty | | | | + +--------+ + + + | ECG 12 LEAD | Routin | 01/18/2016 | Other chest pain | Results for this | | | e | 3:20 PM | | procedure are in the | | | | PDT | | results section. | + +--------+ + + + | LABS - EXTERNAL SCAN | | 01/16/2016 | | Results for this | | | | 12:00 AM | | procedure are in the | | | | PDT | | results section. | + +--------+ + + + documented in this encounter Results ECG 12 lead (01/18/2016 3:20 PM PDT) + + + + + + | Component | Value | Ref Range | Performed | Pathologist | | | | | At | Signature | + + + + + + | VENTRICULAR | 83 | BPM | [facility] | | | RATE EKG | | | | | + + + + + + | ATRIAL RATE | 83 | BPM | [facility] | | + + + + + + | P-R | 124 | ms | [facility] | | | INTERVAL | | | | | + + + + + + | QRS | 84 | ms | [facility] | | | DURATION | | | | | + + + + + + | Q-T | 384 | ms | [facility] | | | INTERVAL | | | | | + + + + + + | Q-T | 451 | ms | [facility] | | | INTERVAL | | | | | | (CORRECTED) | | | | | + + + + + + | P WAVE AXIS | 44 | degrees | [facility] | | + + + + + + | QRS AXIS | -34 | degrees | [facility] | | + + + + + + | T AXIS | 87 | degrees | [facility] | | + + + + + + | INTERPRETAT | Normal sinus | | [facility] | | | ION TEXT | rhythmPossible Left | | | | | | atrial enlargementLeft | | | | | | axis deviationAbnormal | | | | | | ECGWhen compared with | | | | | | ECG of 07-DEC-2015 | | | | | | 15:10,No significant | | | | | | change was | | | | | | foundConfirmed by | | | | | | MEAGAN PERALES, MARISSA | | | | | | ([id number]) on 01/19/2016 | | | | | | 6:22:40 AM | | | | + + + + + + + + | Specimen | + + | | + + + + + | Narrative | Performed At | + + + | | | + + + + +---------+ + + | Performing | Address | City/State/Zipcode | Phone Number | | Organization | | | | + +---------+ + + | [facility] | | | | + +---------+ + + LABS - EXTERNAL SCAN (01/16/2016 12:00 AM PDT) + + + | Narrative | Performed At | + + + | Ordered by an | | | unspecified provider. | | + + + documented in this encounter Visit Diagnoses + + | Diagnosis | + + | Other chest pain - Primary | + + documented in this encounter
--- OUTSIDE RECORDS SUMMARY | ~2019-11-29 | XMS | Encounter Summary ---
Demographics + + + | Address | [address] | | | [place] [address] | + + + | Home Phone | | + + + | Preferred Language | Unknown | + + + | Marital Status | | + + + | Restorationist Affiliation | Unknown | + + + | Race | Unknown | + + + | Ethnic Group | Unknown | + + + Author + + + | Author | [facility] | | | and [place] | + + + | Organization | [facility] | | | and [place] | + + + | Address | Unknown | + + + | Phone | Unavailable | + + + Support + + +---------+ + | Name | Relationship | Address | Phone | + + +---------+ + | Carlos | ECON | Unknown | | | [place] | | | | + + +---------+ + Care Team Providers + +------+ + | Care Legislative Assistant Name | Role | Phone | + +------+ + | Kyle Richey DO | PCP | | + +------+ + Encounter Details +--------+ + + + + | Date | Type | Department | Care Team | Description | +--------+ + + + + | 07/16/ | Abstract | [facility] | Marissa Rouse, | | | 2018 | | CARDIOLOGY [address] | | | | | [place], | [place], | | | | | [place] [address] | [place] [address] | | | | | [phone] | [phone] | | | | | | | | +--------+ + + + + Social History + + [...] + + documented as of this encounter Plan of Treatment Not on filedocumented as of this encounter Procedures + +--------+ + + + | Procedure Name | Priori | Date/Time | Associated Diagnosis | Comments | | | ty | | | | + +--------+ + + + | EXTERNAL LAB: BUN | Routin | 06/06/2017 | | Results for this | | | e | | | procedure are in the | | | | | | results section. | + +--------+ + + + | EXTERNAL LAB: | Routin | 06/06/2017 | | Results for this | | GLUCOSE | e | | | procedure are in the | | | | | | results section. | + +--------+ + + + | EXTERNAL LAB: ALT | Routin | 06/06/2017 | | Results for this | | | e | | | procedure are in the | | | | | | results section. | + +--------+ + + + | EXTERNAL LAB: AST | Routin | 06/06/2017 | | Results for this | | | e | | | procedure are in the | | | | | | results section. | + +--------+ + + + | EXTERNAL LAB: | Routin | 06/06/2017 | | Results for this | | ALKALINE PHOSPHATASE | e | | | procedure are in the | | | | | | results section. | + +--------+ + + + | EXTERNAL LAB: | Routin | 06/06/2017 | | Results for this | | BILIRUBIN, TOTAL | e | | | procedure are in the | | | | | | results section. | + +--------+ + + + | EXTERNAL LAB: | Routin | 06/06/2017 | | Results for this | | ALBUMIN | e | | | procedure are in the | | | | | | results section. | + +--------+ + + + | EXTERNAL LAB: | Routin | 06/06/2017 | | Results for this | | PROTEIN, TOTAL | e | | | procedure are in the | | | | | | results section. | + +--------+ + + + | EXTERNAL LAB: | Routin | 06/06/2017 | | Results for this | | CALCIUM | e | | | procedure are in the | | | | | | results section. | + +--------+ + + + | EXTERNAL LAB: CARBON | Routin | 06/06/2017 | | Results for this | | DIOXIDE | e | | | procedure are in the | | | | | | results section. | + +--------+ + + + | EXTERNAL LAB: | Routin | 06/06/2017 | | Results for this | | CHLORIDE | e | | | procedure are in the | | | | | | results section. | + +--------+ + + + | EXTERNAL LAB: | Routin | 06/06/2017 | | Results for this | | POTASSIUM | e | | | procedure are in the | | | | | | results section. | + +--------+ + + + | EXTERNAL LAB: SODIUM | Routin | 06/06/2017 | | Results for this | | | e | | | procedure are in the | | | | | | results section. | + +--------+ + + + | EXTERNAL LAB: CBC | Routin | 06/06/2017 | | Results for this | | | e | | | procedure are in the | | | | | | results section. | + +--------+ + + + | EXTERNAL LAB: EGFR | Routin | 06/06/2017 | | Results for this | | | e | | | procedure are in the | | | | | | results section. | + +--------+ + + + | EXTERNAL LAB: | Routin | 06/06/2017 | | Results for this | | CREATININE | e | | | procedure are in the | | | | | | results section. | + +--------+ + + + | CBC WITH | Routin | 06/06/2017 | | Results for this | | DIFFERENTIAL | e | | | procedure are in the | | | | | | results section. | + +--------+ + + + | COMPREHENSIVE | Routin | 06/06/2017 | | Results for this | | METABOLIC PANEL | e | | | procedure are in the | | | | | | results section. | + +--------+ + + + documented in this encounter Results CBC with Differential (06/06/2017) + + + + + + | Component | Value | Ref Range | Performed | Pathologist | | | | | At | Signature | + + + + + + | MCH | 18.7 (A) | 26.0 - 33.0 pg | | | + + + + + + | MCHC | 28.9 (A) | 31.0 - 36.0 % | | | + + + + + + | MPV | 9.1 | 6.6 - 10.2 fL | | | + + + + + + + + | Specimen | + + | Blood | + + Comprehensive Metabolic Panel (06/06/2017) + +--------+ + + + | Component | Value | Ref Range | Performed | Pathologist | | | | | At | Signature | + +--------+ + + + | Anion Gap | 9 | 3 - 12 mmol/L | | | + +--------+ + + + | Bun/Creatin | 20 (A) | 7 - 18 | | | | ine | | | | | + +--------+ + + + + + | Specimen | + + | Blood | + + External Lab: BUN (06/06/2017) + +--------+ + + + | Component | Value | Ref Range | Performed | Pathologist | | | | | At | Signature | + +--------+ + + + | BUN, | 20 (A) | 7 - 18 | EXTERNAL | | | External | | | LAB | | + +--------+ + + + + + | Resulting Agency Comment | + + | [facility] | + + + +---------+ + + | Performing | Address | City/State/Zipcode | Phone Number | | Organization | | | | + +---------+ + + | EXTERNAL LAB | | | | + +---------+ + + External Lab: Glucose (06/06/2017) + +---------+ + + + | Component | Value | Ref Range | Performed | Pathologist | | | | | At | Signature | + +---------+ + + + | Glucose, | 128 (A) | 70 - 100 | EXTERNAL | | | External | | | LAB | | + +---------+ + + + + + | Resulting Agency Comment | + + | [facility] | + + + +---------+ + + | Performing | Address | City/State/Zipcode | Phone Number | | Organization | | | | + +---------+ + + | EXTERNAL LAB | | | | + +---------+ + + External Lab: ALT (06/06/2017) + +-------+ + + + | Component | Value | Ref Range | Performed | Pathologist | | | | | At | Signature | + +-------+ + + + | ALT, | 22 | 10 - 48 | EXTERNAL | | | External | | | LAB | | + +-------+ + + + + + | Resulting Agency Comment | + + | [facility] | + + + +---------+ + + | Performing | Address | City/State/Zipcode | Phone Number | | Organization | | | | + +---------+ + + | EXTERNAL LAB | | | | + +---------+ + + External Lab: AST (06/06/2017) + +-------+ + + + | Component | Value | Ref Range | Performed | Pathologist | | | | | At | Signature | + +-------+ + + + | AST, | 26 | 10 - 42 | EXTERNAL | | | External | | | LAB | | + +-------+ + + + + + | Resulting Agency Comment | + + | [facility] | + + + +---------+ + + | Performing | Address | City/State/Zipcode | Phone Number | | Organization | | | | + +---------+ + + | EXTERNAL LAB | | | | + +---------+ + + External Lab: Alkaline Phosphatase (06/06/2017) + +-------+ + + + | Component | Value | Ref Range | Performed | Pathologist | | | | | At | Signature | + +-------+ + + + | ALP, | 46 | 32 - 92 | EXTERNAL | | | External | | | LAB | | + +-------+ + + + + + | Resulting Agency Comment | + + | [facility] | + + + +---------+ + + | Performing | Address | City/State/Zipcode | Phone Number | | Organization | | | | + +---------+ + + | EXTERNAL LAB | | | | + +---------+ + + External Lab: Bilirubin, Total (06/06/2017) + +-------+ + + + | Component | Value | Ref Range | Performed | Pathologist | | | | | At | Signature | + +-------+ + + + | Bilirubin, | 0.5 | 0.2 - 1.2 | EXTERNAL | | | Total, | | | LAB | | | External | | | | | + +-------+ + + + + + | Resulting Agency Comment | + + | [facility] | + + + +---------+ + + | Performing | Address | City/State/Zipcode | Phone Number | | Organization | | | | + +---------+ + + | EXTERNAL LAB | | | | + +---------+ + + External Lab: Albumin (06/06/2017) + +-------+ + + + | Component | Value | Ref Range | Performed | Pathologist | | | | | At | Signature | + +-------+ + + + | Albumin, | 3.9 | 3.5 - 5 | EXTERNAL | | | External | | | LAB | | + +-------+ + + + + + | Resulting Agency Comment | + + | [facility] | + + + +---------+ + + | Performing | Address | City/State/Zipcode | Phone Number | | Organization | | | | + +---------+ + + | EXTERNAL LAB | | | | + +---------+ + + External Lab: Protein, Total (06/06/2017) + +-------+ + + + | Component | Value | Ref Range | Performed | Pathologist | | | | | At | Signature | + +-------+ + + + | Protein, | 7.7 | 6 - 8.1 | EXTERNAL | | | Total, | | | LAB | | | External | | | | | + +-------+ + + + + + | Resulting Agency Comment | + + | [facility] | + + + +---------+ + + | Performing | Address | City/State/Zipcode | Phone Number | | Organization | | | | + +---------+ + + | EXTERNAL LAB | | | | + +---------+ + + External Lab: Calcium (06/06/2017) + +-------+ + + + | Component | Value | Ref Range | Performed | Pathologist | | | | | At | Signature | + +-------+ + + + | Calcium, | 8.9 | 8.4 - 10.5 | EXTERNAL | | | External | | | LAB | | + +-------+ + + + + + | Resulting Agency Comment | + + | [facility] | + + + +---------+ + + | Performing | Address | City/State/Zipcode | Phone Number | | Organization | | | | + +---------+ + + | EXTERNAL LAB | | | | + +---------+ + + External Lab: Carbon Dioxide (06/06/2017) + +-------+ + + + | Component | Value | Ref Range | Performed | Pathologist | | | | | At | Signature | + +-------+ + + + | Carbon | 23 | 21 - 31 | EXTERNAL | | | Dioxide, | | | LAB | | | External | | | | | + +-------+ + + + + + | Resulting Agency Comment | + + | [facility] | + + + +---------+ + + | Performing | Address | City/State/Zipcode | Phone Number | | Organization | | | | + +---------+ + + | EXTERNAL LAB | | | | + +---------+ + + External Lab: Chloride (06/06/2017) + +-------+ + + + | Component | Value | Ref Range | Performed | Pathologist | | | | | At | Signature | + +-------+ + + + | Chloride, | 103 | 98 - 107 | EXTERNAL | | | External | | | LAB | | + +-------+ + + + + + | Resulting Agency Comment | + + | [facility] | + + + +---------+ + + | Performing | Address | City/State/Zipcode | Phone Number | | Organization | | | | + +---------+ + + | EXTERNAL LAB | | | | + +---------+ + + External Lab: Potassium (06/06/2017) + +-------+ + + + | Component | Value | Ref Range | Performed | Pathologist | | | | | At | Signature | + +-------+ + + + | Potassium, | 3.9 | 3.6 - 5 | EXTERNAL | | | External | | | LAB | | + +-------+ + + + + + | Resulting Agency Comment | + + | [facility] | + + + +---------+ + + | Performing | Address | City/State/Zipcode | Phone Number | | Organization | | | | + +---------+ + + | EXTERNAL LAB | | | | + +---------+ + + External Lab: Sodium (06/06/2017) + +-------+ + + + | Component | Value | Ref Range | Performed | Pathologist | | | | | At | Signature | + +-------+ + + + | Sodium, | 135 | 135 - 145 | EXTERNAL | | | External | | | LAB | | + +-------+ + + + + + | Resulting Agency Comment | + + | [facility] | + + + +---------+ + + | Performing | Address | City/State/Zipcode | Phone Number | | Organization | | | | + +---------+ + + | EXTERNAL LAB | | | | + +---------+ + + External Lab: CBC (06/06/2017) + + + + + + | Component | Value | Ref Range | Performed | Pathologist | | | | | At | Signature | + + + + + + | WBC, | 12.9 (A) | 4.3 - 11 | EXTERNAL | | | External | | | LAB | | + + + + + + | HGB, | 8.6 (A) | 12 - 16 | EXTERNAL | | | External | | | LAB | | + + + + + + | HCT, | 29.8 (A) | 38 - 47 | EXTERNAL | | | External | | | LAB | | + + + + + + | PLT, | 259 | 150 - 375 | EXTERNAL | | | External | | | LAB | | + + + + + + | Neutrophils | 61.2 | 37 - 80 | EXTERNAL | | | %, | | | LAB | | | External | | | | | + + + + + + | Lymphocytes | 23.4 | 10 - 50 | EXTERNAL | | | %, | | | LAB | | | External | | | | | + + + + + + | Monocytes | 8.9 | 0 - 12 | EXTERNAL | | | %, External | | | LAB | | + + + + + + | Eosinophils | 3.7 | 0 - 7 | EXTERNAL | | | %, | | | LAB | | | External | | | | | + + + + + + | Neutrophils | 7.9 (A) | 2 - 6.9 | EXTERNAL | | | , Absolute, | | | LAB | | | External | | | | | + + + + + + | Lymphocytes | 3.0 | 0.6 - 3.4 | EXTERNAL | | | , Absolute, | | | LAB | | | External | | | | | + + + + + + | Monocytes, | 1.10 (A) | 0 - 0.9 | EXTERNAL | | | Absolute, | | | LAB | | | External | | | | | + + + + + + | Eosinophils | 0.5 | 0 - 0.7 | EXTERNAL | | | , Absolute | | | LAB | | + + + + + + | Basophils, | 0.4 (A) | 0 - 0.2 | EXTERNAL | | | Absolute | | | LAB | | + + + + + + | RBC, | 4.61 | 4.2 - 5.4 | EXTERNAL | | | External | | | LAB | | + + + + + + | MCV, | 65 (A) | 82 - 100 | EXTERNAL | | | External | | | LAB | | + + + + + + | RDW, | 21.2 (A) | 11.6 - 16 | EXTERNAL | | | External | | | LAB | | + + + + + + + + | Resulting Agency Comment | + + | [facility] | + + + +---------+ + + | Performing | Address | City/State/Zipcode | Phone Number | | Organization | | | | + +---------+ + + | EXTERNAL LAB | | | | + +---------+ + + External Lab: eGFR (06/06/2017) + +-------+ + + + | Component | Value | Ref Range | Performed | Pathologist | | | | | At | Signature | + +-------+ + + + | eGFR, | 36 | | EXTERNAL | | | External | | | LAB | | + +-------+ + + + + + | Specimen | + + | Blood | + + + + | Resulting Agency Comment | + + | [facility] | + + + +---------+ + + | Performing | Address | City/State/Zipcode | Phone Number | | Organization | | | | + +---------+ + + | EXTERNAL LAB | | | | + +---------+ + + External Lab: Creatinine (06/06/2017) + +---------+ + + + | Component | Value | Ref Range | Performed | Pathologist | | | | | At | Signature | + +---------+ + + + | Creatinine, | 1.5 (A) | 0.6 - 1.3 | EXTERNAL | | | External | | | LAB | | + +---------+ + + + + + | Specimen | + + | Blood | + + + + | Resulting Agency Comment | + + | [facility] | + + + +---------+ + + | Performing | Address | City/State/Zipcode | Phone Number | | Organization | | | | + +---------+ + + | EXTERNAL LAB | | | | + +---------+ + + documented in this encounter Visit Diagnoses Not on filedocumented in this encounter"
--- OUTSIDE RECORDS SUMMARY | ~2019-11-29 | XMS | Encounter Summary ---
Demographics + + + | Address | [address] | | | [place] [address] | + + + | Home Phone | | + + + | Preferred Language | Unknown | + + + | Marital Status | | + + + | Zoroastrianism Affiliation | Unknown | + + + | Race | Unknown | + + + | Ethnic Group | Unknown | + + + Author + + + | Author | [facility] | | | and [place] | + + + | Organization | [facility] | | | and [...] Team Providers + +------+ + | Care Sound Controller Name | Role | Phone | + +------+ + PCP | Unavailable | + +------+ + Encounter Details +--------+ + + + + | Date | Type | Department | Care Team | Description | +--------+ + + + + | 02/24/ | Orders Only | [facility] | Yasmeen Galan, | COPD (chronic | | 2014 | | PULMONARY [address] | RN | obstructive | | | | [place], | | pulmonary disease) | | | | [place] [id number] | | ([facility]) | | | | [phone] | | | +--------+ + + + + Social History + + + +--------+ + | Tobacco Use | Types | Packs/Day | Years | Date | | | | | Used | | + + + +--------+ + | Former Smoker | Cigarettes | 0.5 | 15 | Quit: 11/24/2012 | + + + +--------+ + + +---+---+ + | Smokeless Tobacco: | | | Quit: | | Former User | | | 09/19/19 | | | | | 12 | + +---+---+ + + + | Comments: 1/2pk for 15 years restarted and quit again 11/2012 | + + + + +---------+ + | Alcohol Use [...] Not on filedocumented as of this encounter Visit Diagnoses + + | Diagnosis | + + | COPD (chronic obstructive pulmonary disease) (HCC) Chronic airway obstruction, not | | elsewhere classified | + + documented in this encounter"
--- OUTSIDE RECORDS SUMMARY | ~2019-11-29 | XMS | Encounter Summary ---
Demographics + + + | Address | [address] | | | [place] [address] | + + + | Home Phone | | + + + | Preferred Language | Unknown | + + + | Marital Status | | + + + | Orthodox Affiliation | Unknown | + + + | Race | Unknown | + + + | Ethnic Group | Unknown | + + + Author + + + | Author | [facility] | | | and [place] | + + + | Organization | [facility] | | | and [...] Team Providers + +------+ + | Care Cafe Lead Name | Role | Phone | + +------+ + | Kyle Richey DO | PCP | | + +------+ + Reason for Visit + + + | Reason | Comments | + + + | Follow-up | cardiac clearence | + + + | Coronary Artery | | | Disease | | + + + Encounter Details +--------+---------+ + + + | Date | Type | Department | Care Team | Description | +--------+---------+ + + + | 03/26/ | Office | [facility] | Marissa Rouse, | Coronary artery | | 2018 | Visit | CARDIOLOGY [address] | disease involving | | | | [place], | [place], | [place] coronary | | | | [place] [address] | [place] [address] | artery of [place] | | | | [phone] | [phone] | heart without angina | | | | | | pectoris (Primary | | | | | | Dx); Pre-op | | | | | | evaluation | +--------+---------+ + + + Social History + + + +--------+ + | Tobacco Use | Types | Packs/Day | Years | Date | | | | | Used | | + + + +--------+ + | Former Smoker | Cigarettes | | | 1982 - 06/11/2012 | + + + +--------+ + [...] + + + | Blood Pressure | 120/60 | 03/26/2018 3:15 PM | | | | | PST | | + + + + + | Pulse | 89 | 03/26/2018 3:15 PM | | | | | PST | | + + + + + | Temperature | - | - | | + + + + + | Respiratory Rate | 16 | 03/26/2018 3:15 PM | | | | | PST | | + + + + + | Oxygen Saturation | - | - | | + + + + + | Inhaled Oxygen | - | - | | | Concentration | | | | + + + + + | Weight | 93 kg (205 lb) | 03/26/2018 3:15 PM | | | | | PST | | + + + + + | Height | 157.5 cm (5' 2") | 03/26/2018 3:15 PM | | | | | PST | | + + + + + | Body Mass Index | 37.49 | 03/26/2018 3:15 PM | | | | | PST | | + + + + + documented in this encounter Progress Notes Marissa Rouse MD - 03/26/2018 3:30 PM PSTFormatting of this note might be different f rom the original. PATIENT NAME: Jessie Casarez : 1965: AGE: 53 y.o. PRIMARY CARE: Kyle Richey DO OUTPATIENT FOLLOW UP VISIT Date of Service: 03/26/2018 HISTORY OF PRESENT ILLNESS: Jessie Casarez is a 53 y.o. female with a history of coronary artery disease involving sarah danielle coronary artery of [place] heart without angina pectoris post non-STEMI post PTCA and carolyn nt of RCA by Dr. Bell on 11/23/15, type II diabetes, essential hypertension, mixed hyperlipi demia, obesity, stage III chronic kidney disease, noncompliant, suspecting obstructive sleep apnea. Sheis being seen today for pre op clearance prior to surgery prior to hysterectomy . She was last seen 02/06/2018 at which time patient was to continue with current medical nenita men. Since that time, patient is doing well from cardiac standpoint. Patient is physically inactive but she has no problem walking up and down 15 stair steps. There is no chest pain o r chest discomfort both at rest and on exertion. Patient denies breathlessness. There is no palpitations, dizziness or lightheadedness. There is no ankle or leg swelling. Patient can s leep on one pillow at night without difficulty breathing. MEDICAL, SURGICAL, AND PERSONAL HISTORY Past Medical, Surgical, Family, and Social History are reviewed in EPIC. CURRENT PROBLEMS Patient Active Problem List Diagnosis Extrapulmonary TB (tuberculosis) RA (rheumatoid arthritis) Pleural effusion Coronary artery disease involving [place] coronary artery of [place] heart without angina pectoris CKD (chronic kidney disease) COPD (chronic obstructive pulmonary disease) Chronic cough Absolute anemia Adiposity Gastroesophageal reflux disease without esophagitis DES (obstructive sleep apnea) Arthralgia of hip Non-ST elevation myocardial infarction (NSTEMI), initial episode of care Elevated troponin I level Uncontrolled diabetes mellitus with hyperglycemia Acute kidney injury superimposed on chronic kidney disease Suspected sleep apnea Microcytic anemia Leukocytosis, unspecified type Acute coronary syndrome Uncontrolled type 2 diabetes mellitus with hyperglycemia, with long-term current use of insulin Anemia of chronic renal failure Controlled type 2 diabetes mellitus with diabetic nephropathy, with long-term current u se of insulin Essential hypertension, benign CURRENT MEDICATIONS Current Outpatient Prescriptions Medication Sig Dispense Refill adalimumab (HUMIRA PEN) 40 mg/0.8 mL injection (pen) Inject 0.8 mLs under the skin ever y 7 days. aspirin 81 MG tablet Take 81 mg by mouth Daily. atorvaSTATin (LIPITOR) 80 MG tablet Take 1 tablet by mouth nightly. 90 tablet 3 dulaglutide (TRULICITY) 1.5 mg/0.5 mL injection Inject 1.5 mg under the skin Once a wee k. ferrous sulfate 325 mg tablet Take 325 mg by mouth daily (with breakfast). fluticasone (FLOVENT HFA) 220 mcg/puff inhaler Inhale 2 puffs into the lungs 2 times da armaan. insulin degludec (TRESIBA FLEXTOUCH) 100 units/mL injection Inject 25 Units under the s kin every morning. isosorbide mononitrate (IMDUR) 30 mg ER tablet Take 1 tablet by mouth Daily. 90 tablet 3 lisinopril (PRINIVIL, ZESTRIL) 10 mg tablet Take 1 tablet by mouth Daily. 90 tablet 3 metoprolol tartrate (LOPRESSOR) 50 mg tablet Take 1 tablet by mouth 2 times daily. 180 tablet 3 nitroglycerin (NITROSTAT) 0.4 mg SL tablet Take one tablet under tongue as needed for c hest pain, may repeat every 5 minutes up to 3 doses. If no relief after 3rd dose, call 911 90 tablet 3 omeprazole (PRILOSEC) 20 mg capsule Take 20 mg by mouth every morning (before breakfast ). sulfaSALAzine (AZULFIDINE) 500 MG EC tablet 1,000 mg 2 times daily. 0 No current facility-administered medications for this visit. ALLERGIES Allergies Allergen Reactions Albuterol Itching and Other (See Comments) Headache Metformin Other (See Comments) Patient states it was contraindicated with another medication. Clopidogrel Other (See Comments) Reaction Unknown ROS Review of Systems Constitutional: Negative for chills, diaphoresis, fever, malaise/fatigue and weight loss. HENT: Negative for congestion, hearing loss, nosebleeds and tinnitus. Dental Problems = No Eyes: Negative for blurred vision and double vision. Respiratory: Negative for shortness of breath. Cardiovascular: Negative for chest pain, palpitations and leg swelling. Gastrointestinal: Negative for blood in stool, constipation, diarrhea, nausea and vomiting. Genitourinary: Negative for dysuria, frequency, hematuria and urgency. Musculoskeletal: Negative for back pain, falls, joint pain, myalgias and neck pain. Gait Problems = No Skin: Negative for itching and rash. Neurological: Negative for dizziness, tingling, tremors, speech change, seizures, loss of c onsciousness and weakness. Lightheaded = No Endo/Heme/Allergies: Does not bruise/bleed easily. Psychiatric/Behavioral: Negative for memory loss. The patient is not nervous/anxious and do es not have insomnia. OBJECTIVE: PHYSICAL EXAM BP 120/60 | Pulse 89 | Resp 16 | Ht 1.575 m (5' 2") | Wt 93 kg (205 lb) | BMI 37.49 kg /m Physical Exam Constitutional: She is oriented to person, place, and time. She appears well-developed and well-nourished. Female individual arrives with her , no acute distress. Neck: Normal carotid pulses and no JVD present. Carotid bruit is not present. Cardiovascular: Normal rate, regular rhythm, S1 normal, S2 normal, normal heart sounds and intact distal pulses. PMI is not displaced. Exam reveals no gallop and no friction rub. No murmur heard. Pulses: Carotid pulses are 2+ on the right side, and 2+ on the left side. Posterior tibial pulses are 2+ on the right side, and 2+ on the left side. Pulmonary/Chest: Effort normal and breath sounds normal. No accessory muscle usage. No resp iratory distress. She has no wheezes. She has no rhonchi. She has no rales. Abdominal: Soft. Normal appearance and normal aorta. She exhibits no abdominal bruit. There is no hepatosplenomegaly. There is no tenderness. Musculoskeletal: She exhibits no edema. Neurological: She is alert and oriented to person, place, and time. Gait normal. Skin: Skin is warm and dry. No cyanosis. Nails show no clubbing. Psychiatric: She has a normal mood and affect. Her mood appears not anxious. She does not e xhibit a depressed mood. ECG: Normal sinus rhythm, T wave abnormality. LAB RESULTS reviewed during visit today primarily from [facility]: LIPID Lab Results Component Value Date CHOL 257 (H) 11/20/2015 TRIG 304 (H) 11/20/2015 HDL 50 11/20/2015 LDL 146 (H) 11/20/2015 CHOLHDL 7.0 (A) 02/20/2018 LDLEX 167 (A) 02/20/2018 HDLEX 40 02/20/2018 TRIGEX 363 (A) 02/20/2018 CHOLEX 279 (A) 02/20/2018 CHEMISTRY Lab Results Component Value Date GLU 144 (H) 03/25/2016 GLUEX 15 (A) 02/20/2018 GLUEX 151 (A) 02/20/2018 NA 138 03/25/2016 NAEX 136 02/20/2018 K 4.7 03/25/2016 KEX 3.7 02/20/2018 CL 111 (H) 03/25/2016 CLEX 106 02/20/2018 CO2 20 (L) 03/25/2016 CO2EX 22 02/20/2018 CALCIUM 8.4 03/25/2016 ALKPHOS 69 11/20/2015 AST 46 (H) 11/20/2015 ASTEX 16 02/20/2018 ALT 40 11/20/2015 ALTEX 14 02/20/2018 BILITOT 0.6 11/20/2015 CREA 1.85 (H) 03/25/2016 BUN 29 (H) 03/25/2016 EGFREX 36 06/06/2017 CREEX 1.5 (A) 06/06/2017 HEMATOLOGY Lab Results Component Value Date WBC 14.6 (H) 11/24/2015 WBCEX 9.2 02/20/2018 HGB 7.7 (L) 11/24/2015 HGBEX 10.4 (A) 02/20/2018 HCT 26.7 (L) 11/24/2015 HCTEX 34.1 (A) 02/20/2018 PLT 258 11/24/2015 PLTEX 314 02/20/2018 Above data and testing is reviewed this visit; testing below is historical data unless othe rwise specified. ASSESSMENT: 1. Coronary artery disease involving [place] coronary artery of [place] heart without angina pectoris/non-STEMI:/pre op clearance prior to surgery prior to hysterectomy A. Post non-STEMI. Left heart cath on 11/21/12 showed 95% stenosis of the LCx, 20-30% stenosis of the proximal RCA. Status post PTCA and stents x 2 of the L Cx.Since that time, she saw a mail clerks supervisor for couple times and loss of follow-up. B. Echocardiogram on 11/20/15 showed Mild biatrial dilatation. Maria l left ventricular size, wall thickness and motion. Preserved left ventricular systolic func tion. LVEF is 60%. Normal valvular structure. Normal right-sided pressure. Normal IVC with n ormal respiratory collapse. C. She started having a chest pain on 11/17/15 while she was working at the [employer]. She described it as a chest pressure 11/18 that radiated across the chest wa ll and was associated some shortness of breath. No palpitation, dizziness or lightheadedne ss. No sweating. She waited until 11/19/15 when she had recurrent bad chest pain that too k her to the ED of [facility] in [place]. She was found to have blood sugar of almost 1000 and troponin of 0.5. She was transferred to [facility]. D. Left heart cath on 11/21/15 [...] the mid RCA by on 11/23/15 . Patient status post PCI of the mid RCA by Dr. Bell on 11/23/15. F. Stress Test 03/08/16, shows persantine EKG is negative, abnormal persantine sestamibi myocardial perfusion study with a medium-size, mainly reversible defec t of a moderate severity of the entire anterior, anterolateral, inferior and inferior latera l, this suggests a medium-sized myocardial ischemia of both left anterior descending artery and left circumflex artery, gated SPECT reveals a normal left ventricular wall thickness and motion, preserved left ventricular systolic function, LVEF by gated SPECT is 64 %. G. [facility] 03/25/16, shows non-critical coronary artery disease; 50-70% stenosis at the midportion of the left circumflex artery, FFR of 0.98, open stents of the m id RCA, there is a co-dominate circulation, normal LV systolic function with an EF of 65%, s ystemic blood pressure is normal, there was successful angio seal placement to the puncture site in the right femoral artery. PLAN: Risk factor modification and Medical management. H. Today, patient is doing well from cardiac standpoint. She is asy mptomatic but physically inactive. There is no signs and symptoms of overt congestive heart failure. She is in a class I of [place] [employer] functional class. There is no f luid retention on physical examination. She is undergoing an elective, non-emergent surgery and would benefit from a cardiac risk assessment. Her Revised Cardiac Risk Index (RCRI) is calculated showing her risks include coronary artery disease and diabetes on insulin, which is 2 risks equating to Class III, est imated 6.6% risk of MACE. This is considered an elevated risk. Her [place]ppola Activity Status In dex (DASI) score is calculated and shows she has a functional capacity of 4 METS and does no t require any further testing. She is on a beta kate, and is on HMG CoA reductase inhi bitor (statin). She does not require medication adjustment. Prior to proceeding with surge ry, as always the risks and benefits of the procedure need to be discussed between patient a nd surgeon, however there is no cardiac contraindication to proceeding with surgery. 2. Essential hypertension with goal blood pressure less than 130/80: A. Blood pressure in office today is well controlled. 3. Type II diabetes/noncompliant with medication. Not addressed today. A.She is known to have history of type II diabetes. She was presc ribed on metformin 500 mg twice a day starting in July,.Patient has not been seen by endocrinology yet, but she has been monitoring blood sugars and has met with diabetic educa tor. Mendoza. Reported by patient most recent hemoglobin A1c is 6.1. 4. Rheumatoid arthritis. Not addressed today. A. She has a history of rheumatoid arthritis and received Humira on ce weekly by Dr. Castillo in [place]. 5.Acute kidney injury on top of the stage III chronic kidney disease. N A. She also seen a quality review specialist at [facility] but recently los t follow-up. B. Ultrasound retroperitoneal 07/01/2016 shows abnormally echogenic kidneys, compatible with medical renal disease. Kidneys are slightly decreased in size since 2011, no evidence of obstruction. 6. Obesity and Inactivity. A. She remains inactive. 7. Hyperlipidemia, mixed: A. She is on atorvastatin 80 mg. 8. Suspecting obstructive sleep apnea A. Patient has 4/8 on stop bag questionnaire. B. Patient has been sleeping well. 9. Upper GI bleeding. Not addressed today. A. Patient had upper and lower endoscopy on 02/02/2018. She was told that he has peptic ul cer disease. PLAN: 1. Patient may proceed with surgery without any further cardiac work up. 2. Today, patient is doing well from cardiac standpoint. I will continue with current medic al regimen. 3. I recommend a therapeutic lifestyle change including walking 30 minutes a day, choosing healthy choices of diet , including DASH diet and weight reduction. 4. Follow-up in as already scheduled in 02/08/2019. I, Rosy Landis, am acting as a scribe on behalf of, and in the presence of Marissa fuentes MD. I have reviewed and edited this note. Rosy Landis, Preparator 03/26/2018 I, Marissa Rouse MD, personally performed the services described in this documentation, as scribed in my presence and it is both accurate and complete. Rosy Landis, Med Ass t 03/26/2018 15:26 Electronically signed by: Marissa Rouse MD [facility] 03/26/2018 Portions of this chart may have been created with [employer] voice recognition software. Occasi onal wrong-word or sound-alike substitutions may have occurred due to the inherent mary itations of voice recognition software. Please read the chart carefully and recognize, using context, where these substitutions have occurred documented in this encounter Plan of Treatment Not on filedocumented as of this encounter Procedures + +--------+ + + + | Procedure Name | Priori | Date/Time | Associated Diagnosis | Comments | | | ty | | | | + +--------+ + + + | ECG 12 LEAD | Routin | 03/26/2018 | Coronary artery | Results for this | | | e | 3:20 PM | disease involving | procedure are in the | | | | PST | [place] coronary | results section. | | | | | artery of [place] | | | | | | heart without angina | | | | | | pectoris Pre-op | | | | | | evaluation | | + +--------+ + + + documented in this encounter Results ECG 12 lead (03/26/2018 3:20 PM PST) + + + + + + | Component | Value | Ref Range | Performed | Pathologist | | | | | At | Signature | + + + + + + | VENTRICULAR | 89 | BPM | [facility] | | | RATE EKG | | | | | + + + + + + | ATRIAL RATE | 89 | BPM | [facility] | | + + + + + + | P-R | 130 | ms | [facility] | | | INTERVAL | | | | | + + + + + + | QRS | 80 | ms | [facility] | | | DURATION | | | | | + + + + + + | Q-T | 374 | ms | [facility] | | | INTERVAL | | | | | + + + + + + | Q-T | 455 | ms | [facility] | | | INTERVAL | | | | | | (CORRECTED) | | | | | + + + + + + | P WAVE AXIS | 51 | degrees | [facility] | | + + + + + + | QRS AXIS | -33 | degrees | [facility] | | + + + + + + | T AXIS | 103 | degrees | [facility] | | + + + + + + | INTERPRETAT | Normal sinus rhythmLeft | | [facility] | | | ION TEXT | axis deviationT wave | | | | | | abnormality, consider | | | | | | lateral ischemiaAbnormal | | | | | | ECGWhen compared with | | | | | | ECG of 07-AUG-2017 | | | | | | 15:50,No significant | | | | | | change was | | | | | | foundConfirmed by | | | | | | MARISSA ROUSE MD | | | | | | ([id number]) on 03/27/2018 | | | | | | 3:40:32 PM | | | | + + + [...] + | Diagnosis | + + | Coronary artery disease involving [place] coronary artery of [place] heart without | | angina pectoris - Primary | + + | Pre-op evaluation Preoperative examination, unspecified | + + documented in this encounter
--- OUTSIDE RECORDS SUMMARY | ~2019-11-29 | XMS | Encounter Summary ---
Demographics + + + | Address | [address] | | | [place] [address] | + + + | Home Phone | | + + + | Preferred Language | Unknown | + + + | Marital Status | | + + + | Adventist Affiliation | Unknown | + + + | Race | Unknown | + + + | Ethnic Group | Unknown | + + + Author + + + | Author | [facility] | | | and [place] | + + + | Organization | [facility] | | | and [place] | + + + | Address | Unknown | + + + | Phone | Unavailable | + + + Support + + +---------+ + | Name | Relationship | Address | Phone | + + +---------+ + | Carlos | ECON | Unknown | | | [place] | | | | + + +---------+ + Care Team Providers + +------+ + | Care Warehouse Associate Name | Role | Phone | + +------+ + PCP | Unavailable | + +------+ + Encounter Details +--------+ + + + + | Date | Type | Department | Care Team | Description | +--------+ + + + + | 11/20/ | Hospital | [facility] | Daniela Victoria | NSTEMI (non-ST | | 2012 - | Encounter | [facility] | [address] | elevated myocardial | | | | CARE [address]LO[address] | infarction) ([facility]); | | 11/22/ | | [address] | [place] [address] | ARF (acute renal | | 2012 | | [place], [place] | [phone] | failure) ([facility]); CKD | | | | [address] | | (chronic kidney | | | | [phone] | | disease); Rheumatoid | | | | | | arthritis ([facility]); | | | | | | Elevated troponin I | | | | | | level; Acute renal | | | | | | failure ([facility]) | +--------+ + + + + Social History + +-------+ +--------+------+ | Tobacco Use | Types | Packs/Day | Years | Date | | | | | Used | | + +-------+ +--------+------+ | Never Assessed | | | | | + +-------+ +--------+------+ + + + | Sex Assigned at | Date Recorded | | | | + + + | Not on file | | + + + documented as of this encounter Discharge Summaries Keira Serrano MD - 12/15/2012 1:05 PM PDT Discharge Summaries by Keira Serrano MD at 12/15/12 1305 Author: Keira Serrano MD Service: (none) Author Type: Physician Filed: 12/15/12 1307 Date of Service: 12/15/12 1305 Status: Signed Photography Sales Associate: Keira Serrano MD (Physician) Discharge Summary Addendum: Date of Admission: 11/20 Date of Discharge: 11/22 I discussed case with Dr. Funes. Patient was not placed on beta kate due to wheezing on admission and concern for bronchospasm. This is also why the patient was not discharged on beta kate. Dr. Funes is unable to complete this addendum at this time, so I am completing this note in an administrative capacity. I had to involvement in the care of this patient. Keira Serrano MD 12/15/2012 yee, Arianne Tapia MD - 11/22/2012 11:08 AM PDT Discharge Summaries by Arianne Funes MD at 11/22/12 1108 Author: Arianne Funes MD Service: (none) Author Type: Physician Filed: 11/22/12 1152 Date of Service: 11/22/12 1108 Status: Signed Photography Sales Associate: Arianne Funes MD (Physician) [facility] Service: Hospitalist Physician Discharge Summary Patient ID: Jessie Pierson 1965 47 y.o. Admit date: 11/20/2012 Discharge date: 11/22/2012 Admitting Physician: Daniela Victoria MD Discharge Physician: ARIANNE FUNES MD Consultants: Treatment Team: Admitting Provider: Daniela Victoria MD Primary Discharge Diagnoses: Rheumatoid arthritis [714.0] ARF (acute renal failure) [584.9] CKD (chronic kidney disease) [585.9] NSTEMI (non-ST elevated myocardial infarction) [410.70] HPI and Hospital Course: 47 years old lady transfer from [facility] in [place] for chest pain With troponin above 5. The patient was started on a nitroglycerin drip, heparin drip and was tra nsferred to [facility] [place] further management. Found out to have Non-ST elevation myocardial infa rction with elevated troponin. Seen by Dr. Padron ( cardiology) Had cardiac catheterizatio n On November 21 , showed single vessle disease and had stent put in. patient tolerating well without any omplication no SOB no chest pain further episode. 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 Significant Diagnostic Studies: Left Heart Catheterization With Coronary Angio 11/21/2012 PROCEDURES 1. Left heart catheterization. 2. Coronary angiography. 3. Intracoronary stent implantation to left circumflex coronary artery. ESTIMATED BLOOD LOSS Less than 50 m L. RESULTS Aortic pressure is 162/91, with a mean of 121. Left ventricular pressure is 155/ 12, with an EDP of 37. ARTERIOGRAPHY 1. Left main coronary artery is normal. 2. Left anteri or descending is normal. 3. Left circumflex has a mid vessel 95% narrowing that appears to h ave some mild residual thrombus. 4. Right coronary artery has 2 proximal 20% to 30% narro wings, but is a large co-dominant artery. LEFT VENTRICULOGRAM Normal left ventricular sy stolic function without regional wall motion abnormalities. Aortic and mitral valves are str ucturally unremarkable. IMPRESSION One-vessel coronary artery disease. CORONARY INTERVENTI ON I elected to intervene upon this. A 6-Tristanian XB 3.5 guide catheter was placed in the left main coronary os and an 0.014 Pasting Machine Offbearer 50 guidewire was advanced down the left circumflex with minimal difficulty. A 4 x 15 mm Vision stent catheter was advanced to the lesion and positi oned with cine assistance. It was inflated up to 10 atmospheres for 20 seconds, deflated, re inflated to 10 atmospheres for 10 seconds. Hand injection showed excellent results with 0% r estenosis. The patient tolerated the procedure well. Pharmacologically, she came down on hep nandini and nitroglycerin drips. She was given additional 2000 units of intravascular heparin o n sheath insertion. ACT is pending post procedure. She was begun on a double bolus and drip of Integrilin at the beginning of the interventional portion of the case and orally loaded w ith Plavix at termination of the case. Read by ZACARIAS PADRON MD 11/21/2012 11:16 A Discharge Vitals: Filed Vitals: 11/21/12 2114 11/21/12 2359 11/22/12 0400 11/22/12 0755 BP: 154/63 132/61 122/67 138/66 Pulse: 104 92 103 92 Temp: 98.5 F (36.9 C) 99.6 F (37.6 C) 98.9 F (37.2 C) TempSrc: Oral Oral Oral Resp: 16 16 20 Height: Weight: 94.2 kg (207 lb 10.8 oz) SpO2: 97% 96% 98% Discharge Exam: General: Well nourished. Psych: Alert and oriented x 3. Calm, cooperative. Cardiovascular: Regular rate and rhythm, no murmurs, no thrills. Normal PMI. Respiratory: Clear to auscultation, no wheezing or crackles, breathing non labored. Gastrointestinal: Soft, non-tender, non-distended, positive bowel sounds. No HSM. Musculoskeletal: No edema in bilateral lower extremities. No joint swelling. Skin: Warm and dry, no rashes.mild soreness rt groin echymosiis no bleeding Neck: No JVD, Trachea midline. Neurological: Non focal. Motor grossly intact. LABS: Lab 11/22/12 0355 11/21/12 0600 WBC 12.6* 10.5 HGB 8.6* 8.3* HCT 27.4* 26.8* PLT 181 250 NEUTOPHILPCT 79.2* 65.8 MONOPCT 10.0 9.1 Lab 11/22/12 0355 11/21/12 0600 NA 129* 137 K 3.6 3.9 CL 102 110* CO2 21* 18* BUN 15 20 CREATININE 1.58* 1.59* CALCIUM -- -- PROT 6.6 6.5 BILITOT 0.5 0.3 ALKPHOS -- -- ALT 16 15 AST 49* 52* GLUCOSE -- -- Phosphorus: Lab 11/22/12 035 PHOS 2.9 Lab 11/22/12 0355 11/21/12 0600 MG 1.6* 1.7 No results found for this basename: AMYLASE:3 in the last 168 hours No results found for this basename: PHART:3,PO2ART:3,JSR2JZR:3,Z5YHUXHT:3,BEART:[address] 168 hours Lab 11/21/12 0600 APTT 62* INR -- PTT -- No results found for this basename: TSH:3,T3FREE:3,FREET4:3 in the last 168 hours Lab 11/21/12 1755 11/21/12 1213 11/21/12 0600 CKTOTAL 497* 513* 570* TROPONINI 12.10* 13.10* 14.10* TROPONINT -- -- -- CKMBINDEX 6.5 9.0 9.8 Assessment and Plan: NSTEMI- had donna on November 21 and BMS implantation to left circumflex coronary artery. 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 Current Discharge Medication List START taking these medications Details aspirin 325 MG EC tablet Take 1 tablet by mouth daily. Qty: 30 tablet, Refills: 11 clopidogrel (PLAVIX) 75 MG tablet Take 1 tablet by mouth daily. Qty: 30 tablet, Refills: 11 STOP taking these medications albuterol (PROVENTIL HFA;VENTOLIN HFA) 108 (90 BASE) MCG/ACT inhaler Comments: Reason for Stopping: ethambutol (MYAMBUTOL) 400 MG tablet Comments: Reason for Stopping: ferrous sulfate 325 (65 FE) MG tablet Comments: Reason for Stopping: hydroxychloroquine (PLAQUENIL) 200 MG tablet Comments: Reason for Stopping: predniSONE (DELTASONE) 10 MG tablet Comments: Reason for Stopping: pyrazinamide 500 MG tablet Comments: Reason for Stopping: pyridoxine (B-6) 25 MG tablet Comments: Reason for Stopping: sodium bicarbonate 650 MG tablet Comments: Reason for Stopping: Signed: ARIANNE FUNES MD 11/22/2012 11:08 AM Discharge took more than 35 minutes, to include final examination, discussion of admission, and preparation of prescriptions, instructions for ongoing care, follow up and dictation of summary. documented in this encounter Progress Notes Conversion Transaction, Provider Unknown - 11/22/2012 12:49 PM PDTFormatting of this note m ight be different from the original. Progress Notes by Cyrus Champion RN at 11/22/12 1249 Author: Cyrus Champion RN Service: (none) Author Type: Registered Nurse Filed: 11/22/12 1252 Date of Service: 11/22/12 1249 Status: Signed Photography Sales Associate: Cyrus Champion RN (Registered Nurse) November 22, 2013 Discharge instructions given to patient. Learner indicates understanding. Discharge prescri ptions were given to the patient. Time of discharge: 1250 Discharge to:home Mode of Transportation:wheelchair Accompanied by:RN Right groin intact with no hematoma. CMS is within normal limits, able to move right limb w ith full range of motion. azander , Zacarias Bean MD - 11/22/2012 10:30 AM PDT Progress Notes by Zacarias Padron MD at 11/22/12 1030 Author: Zacarias Padron MD Service: (none) Author Type: Physician Filed: 11/22/121 Date of Service: 11/22/121029 Status: Signed Photography Sales Associate: Zacarias Padron MD (Physician) Feels well VSS. OK for DC F/U myself 2 weeks. ohnna, Lalo Tapia MD - 11/22/2012 9:21 AM PDTFormatting of this note might be different from the radha ginal. Progress Notes by Arianne Funes MD at 11/22/12920 Author: Arianne Funes MD Service: (none) Author Type: Physician Filed: 11/22/1245 Date of Service: 11/22/12920 Status: Signed Photography Sales Associate: Arianne Funes MD (Physician) [facility] Service: Hospitalist Progress Note Pt: Jessie Pierson AGE/SEX: 47 y.o. female : 1965 ROOM: [address] [place], [place] [address] REQUESTING PROVIDER: Arianne Funes MD TODAY'S DATE: 11/22/2012 Hospital Day: LOS: 2 days SUBJECTIVE Patient stated feeling better no chest pressure no sob soreness in donna side+ rt groin area Scheduled Medications aspirin 325 mg Oral Daily with breakfast clopidogrel 600 mg Oral Once clopidogrel 75 mg Oral Daily eptifibatide 180 mcg/kg Intravenous Once eptifibatide 180 mcg/kg Intravenous Once ethambutol 4,000 mg Oral Twice Weekly heparin (porcine) 2,000 Units Intravenous Once hydrALAZINE 2 mg Intravenous Once hydroxychloroquine 400 mg Oral Daily lidocaine-EPINEPHrine 1 mL Infiltration Once predniSONE 10 mg Oral Daily pyrazinamide 1,500 mg Oral Daily pyridoxine 25 mg Oral Daily sodium bicarbonate buffer 5 mL Infiltration Once sodium bicarbonate 1,300 mg Oral BID Continuous Infusions eptifibatide 0.75 mg/mL 1 mcg/kg/min (11/21/12 1135) heparin in D5W 50 units/mL Stopped (11/21/12 1119) nitroGLYCERIN in D5W 200 mcg/mL Stopped (11/21/12 1119) sodium chloride 150 mL/hr at 11/21/12 1603 sodium chloride 150 mL/hr at 11/21/12 0910 DISCONTD: eptifibatide 0.75 mg/mL 1 mcg/kg/min (11/21/12 1107) PRN Medications acetaminophen, acetaminophen, albuterol, aluminum-magnesium hydroxide-simethicone, enalapri lat, hydrALAZINE, HYDROmorphone, HYDROmorphone, iopamidol, LORazepam, LORazepam, nitroGLYCER IN, ondansetron, ondansetron, polyethylene glycol, zolpidem, DISCONTD: acetaminophen, DISCON TD: acetaminophen, DISCONTD: adenosine in NS 6 mcg/mL, DISCONTD: hydrALAZINE, DISCONTD: hydr ALAZINE, DISCONTD: ondansetron, DISCONTD: ondansetron, DISCONTD: polyethylene glycol DISCONTD: zolpidem Allergy: No Known Allergies OBJECTIVE Vitals: Patient Vitals for the past 24 hrs: BP Temp Temp src Pulse Resp SpO2 Weight 11/22/12 0755 138/66 mmHg 98.9 F (37.2 C) Oral 92 20 98 % - 11/22/12 0400 122/67 mmHg 99.6 F (37.6 C) Oral 103 16 96 % 94.2 kg (207 lb 10.8 oz) 11/21/12 2359 132/61 mmHg 98.5 F (36.9 C) Oral 92 16 97 % - 11/21/12 2114 154/63 mmHg - - 104 - - - 11/21/12 2100 149/67 mmHg - - 102 - - - 11/21/12 1945 159/69 mmHg 98.6 F (37 C) Oral 104 20 97 % - 11/21/12 1812 172/80 mmHg - - 104 - 98 % - 11/21/12 1800 156/84 mmHg - - 104 - 98 % - 11/21/12 1745 154/70 mmHg - - 102 - 99 % - 11/21/12 1730 145/70 mmHg - - 98 - 99 % - 11/21/12 1715 146/67 mmHg - - 98 - 98 % - 11/21/12 1700 130/68 mmHg - - 100 20 97 % - 11/21/12 1645 146/70 mmHg - - 98 - 98 % - 11/21/12 1630 139/67 mmHg - - 96 20 98 % - 11/21/12 1615 140/59 mmHg - - 96 18 98 % - 11/21/12 1600 149/70 mmHg - - 96 18 99 % - 11/21/12 1545 140/63 mmHg - - 94 18 99 % - 11/21/12 1541 140/63 mmHg 98.6 F (37 C) Oral 94 20 99 % - 11/21/12 1530 141/68 mmHg - - 94 18 98 % - 11/21/12 1525 138/64 mmHg - - 94 - 98 % - 11/21/12 1520 137/66 mmHg - - 96 - 97 % - 11/21/12 1515 143/66 mmHg - - 96 - 97 % - 11/21/12 1510 139/69 mmHg - - 96 - 97 % - 11/21/12 1505 136/63 mmHg - - 96 - 97 % - 11/21/12 1500 142/63 mmHg - - 102 - 96 % - 11/21/12 1455 152/67 mmHg - - 98 - 99 % - 11/21/12 1450 171/97 mmHg - - 98 - 99 % - 11/21/12 1445 154/67 mmHg - - 102 - 97 % - 11/21/12 1440 138/64 mmHg - - 96 - 100 % - 11/21/12 1430 172/77 mmHg - - 94 16 99 % - 11/21/12 1415 168/75 mmHg - - 96 - 98 % - 11/21/12 1400 156/71 mmHg - - 94 16 99 % - 11/21/12 1345 166/72 mmHg - - 96 - 99 % - 11/21/12 1330 175/81 mmHg - - 90 16 96 % - 11/21/12 1300 147/68 mmHg - - 88 16 98 % - 11/21/12 1240 159/68 mmHg - - 92 16 98 % - 11/21/12 1225 167/74 mmHg - - 90 16 98 % - 11/21/12 1210 156/81 mmHg - - 90 18 98 % - 11/21/12 1150 154/73 mmHg - - 92 16 93 % - 11/21/12 1135 172/81 mmHg 99 F (37.2 C) Oral 96 16 95 % - I&O Detailed Table: Intake/Output Summary (Last 24 hours) at 11/22/12 09 Last data filed at 11/22/12 0400 Gross per 24 hour Intake 2669 ml Output 900 ml Net 1769 ml Patient Vitals for the past 96 hrs: Weight 11/22/12 0400 94.2 kg (207 lb 10.8 oz) 11/21/12 0424 93.7 kg (206 lb 9.1 oz) 11/20/12 2204 86.183 kg (190 lb) Hemodynamics Last 24hrs: Examination: (nursing notereviewed). Constitutional: oriented to person, place, and time. Appears well-developed and well-pat shed. HENT: Head: Normocephalic and atraumatic. Mouth/Throat: Oropharynx is clear and moist. Eyes: Conjunctivae and EOM are normal. Pupils are equal, round, and reactive to light. Neck: Normal range of motion. Neck supple. Cardiovascular: Normal rate, regular rhythm, normal heart sounds and intact distal pulses. Pulmonary/Chest: Effort normal and breath sounds normal. No crepts Abdominal: Soft. Bowel sounds are normal. No mass no tenderness Genitourinary: rt groin are no bleeding echymoisi+ soreness mild At site Musculoskeletal: exhibits no edema and no tenderness. Neurological: alert and oriented to person, place, and time. No focality Skin: ecchymoisis rt groin area+ Psychiatric: has a normal mood and affect. Behavior is normal. Judgment and thought conten t normal.Cognition intact. LABS: Lab 11/22/12 0355 11/21/12 0600 WBC 12.6* 10.5 HGB 8.6* 8.3* HCT 27.4* 26.8* PLT 181 250 NEUTOPHILPCT 79.2* 65.8 MONOPCT 10.0 9.1 Lab 11/22/12 0355 11/21/12 0600 NA 129* 137 K 3.6 3.9 CL 102 110* CO2 21* 18* BUN 15 20 CREATININE 1.58* 1.59* CALCIUM -- -- PROT 6.6 6.5 BILITOT 0.5 0.3 ALKPHOS -- -- ALT 16 15 AST 49* 52* GLUCOSE -- -- Phosphorus: Lab 11/22/12 0355 PHOS 2.9 Lab 11/22/12 0355 11/21/12 0600 MG 1.6* 1.7 No results found for this basename: AMYLASE:3 in the last 168 hours No results found for this basename: PHART:3,PO2ART:3,BLW2CSS:3,K2LSBYCO:3,BEART:[address] 168 hours Lab 11/21/12 0600 APTT 62* INR -- PTT -- No results found for this basename: TSH:3,T3FREE:3,FREET4:3 in the last 168 hours Lab 11/21/12 1755 11/21/12 1213 11/21/12 0600 CKTOTAL 497* 513* 570* TROPONINI 12.10* 13.10* 14.10* TROPONINT -- -- -- CKMBINDEX 6.5 9.0 9.8 PROBLEM LIST Principal Problem: *NSTEMI (non-ST elevated myocardial infarction) Active Problems: ARF (acute renal failure) Rheumatoid arthritis CKD (chronic kidney disease) Obesity, unspecified ASSESSMENT & PLAN Principal Problem: *NSTEMI (non-ST elevated myocardial infarction) Active Problems: ARF (acute renal failure) Rheumatoid arthritis CKD (chronic kidney disease) Obesity, unspecified NSTEMI- had donna yesterday and BMS implantation to left circumflex coronary artery. on plavix CKD- stable BP review meds review Rheumatoid arhritsi- continue plaquinil and steriod Anemia- With cKD RA and recent procedure factors asypmomatic moniter once cardiology clear plan D/c 30 minutes of visit, face to face, 50% of time spend co-ordination of care, counseling, e ducation, medication review with patient regarding medical issues. ARIANNE FUNES MD MD 11/22/2012 9:21 AM onversion Transac tion, Provider Unknown - 11/21/2012 2:35 PM PDTFormatting of this note might be different f rom the original. Progress Notes by Brooke Pacheco RN at 11/21/12 0958 Author: Brooke Pacheco RN Service: (none) Author Type: Registered Nurse Filed: 11/21/12 1437 Date of Service: 11/21/12 1435 Status: Signed Photography Sales Associate: Brooke Pacheco RN (Registered Nurse) This RN prepping for sheath removal. ACT = 134. 10 mg Hydralazine given as well as PRN Va sotec to help decrease BP. Awaiting BP < 160 before beginning sheath removal. Will continu e to closely monitor. Brooke Pacheco RN 2:37 PM Zacarias Rhodes MD - 11/21/2012 11:19 AM PDT Progress Notes by Zacarias Padron MD at 11/21/12 111 Author: Zacarias Padron MD Service: (none) Author Type: Physician Filed: 11/21/121118 Date of Service: 11/21/121118 Status: Signed Photography Sales Associate: Zacarias Padron MD (Physician) Cath done and dictated. BMS to LCX onversion Transaction, Provider Unknown - 11/21/2012 8:43 AM PDTFormatting of this note might be dif ferent from the original. Progress Notes by Brooke Pacheco RN at 11/21/12 0843 Author: Brooke Pacheco RN Service: (none) Author Type: Registered Nurse Filed: 11/21/12 0844 Date of Service: 11/21/12 0843 Status: Signed Photography Sales Associate: Brooke Pacheco RN (Registered Nurse) Dr Padron notified of troponin enzyme increase to 14.1. Stated he would see her in about h usp an hour. Pt is chest pain free with heparin and nitro running. Will continue to closel y monitor. Brooke Pacheco RN 8:44 AM Arianne Shen MD - 11/21/2012 8:37 AM PDT Progress Notes by Arianne Funes MD at 07/13/13 0837 Author: Arianne Funes MD Service: (none) Author Type: Physician Filed: 11/21/1258 Date of Service: 11/21/12836 Status: Signed Photography Sales Associate: Arianne Funes MD (Physician) [facility] Service: Hospitalist Progress Note Pt: Jessie Pierson AGE/SEX: 47 y.o. female : 1965 ROOM: [address] [place] [address] REQUESTING PROVIDER: Arianne Funes MD TODAY'S DATE: 11/21/2012 Hospital Day: LOS: 1 day transfer from [facility] in [place] for chest pain With troponin above 5. The patient was started on a nitroglycerin drip, heparin drip and was transferred to [facility] [place] r further management. SUBJECTIVE The patient currently Have Mild Chest discomfort No shortness of breath She denied an y nausea or vomiting. No diaphoresis. No palpitation. Though headache+ Scheduled Medications ethambutol 4,000 mg Oral Twice Weekly hydroxychloroquine 400 mg Oral Daily predniSONE 10 mg Oral Daily pyrazinamide 1,500 mg Oral Daily pyridoxine 25 mg Oral Daily sodium bicarbonate 1,300 mg Oral BID Continuous Infusions heparin in D5W 50 units/mL 11 Units/kg/hr (11/20/122321) nitroGLYCERIN in D5W 200 mcg/mL 10 mcg/min (11/20/122321) sodium chloride 150 mL/hr at 11/21/12 0158 PRN Medications acetaminophen, acetaminophen, albuterol, aluminum-magnesium hydroxide-simethicone, enalapri lat, hydrALAZINE, HYDROmorphone, HYDROmorphone, LORazepam, LORazepam, ondansetron, ondansetr on, polyethylene glycol, zolpidem Allergy: No Known Allergies OBJECTIVE Vitals: Patient Vitals for the past 24 hrs: BP Temp Temp src Pulse Resp SpO2 Height Weight 11/21/12 0746 133/75 mmHg 98.3 F (36.8 C) Oral 82 18 98 % - - 11/21/12 0424 142/70 mmHg 98.5 F (36.9 C) Oral 83 16 94 % 1.575 m (5' 2") 93.7 kg (20 6 lb 9.1 oz) 11/21/12 0148 128/66 mmHg 98.6 F (37 C) Oral 80 16 98 % - - 11/21/12 0127 148/67 mmHg - - 83 16 99 % - - 11/21/12 0102 163/82 mmHg - - - - - - - 11/21/12 0101 194/94 mmHg - - 81 16 97 % - - 11/20/12 2323 148/69 mmHg - - 86 17 97 % - - 11/20/12 2204 144/68 mmHg 97.5 F (36.4 C) Oral 88 18 97 % 1.575 m (5' 2") 86.183 kg ( 190 lb) I&O Detailed Table: Intake/Output Summary (Last 24 hours) at 11/21/12 0837 Last data filed at 11/21/12 042 Gross per 24 hour Intake 0 ml Output 450 ml Net -450 ml Patient Vitals for the past 96 hrs: Weight 11/21/12 042 93.7 kg (206 lb 9.1 oz) 11/20/12 220 86.183 kg (190 lb) Hemodynamics Last 24hrs: Examination: (nursing notereviewed). Constitutional: oriented to person, place, and time. Appears well-developed and well-pat shed. Not in distress HENT: Head: Normocephalic and atraumatic. Mouth/Throat: Oropharynx is clear and moist. Eyes: Conjunctivae and EOM are normal. Pupils are equal, round, and reactive to light. Neck: Normal range of motion. Neck supple. No JVd no bruit Cardiovascular: Normal rate, regular rhythm, normal heart sounds and intact distal pulses. Pulmonary/Chest: Effort normal and breath sounds normal. No crepts Abdominal: Soft. Bowel sounds are normal. No masss no tenderness Genitourinary: defer Musculoskeletal: exhibits no edema and no tenderness. Neurological: alert and oriented to person, place, and time. No focality Psychiatric: has a normal mood and affect. Behavior is normal. Judgment and thought conten t normal.Cognition intact. LABS: Lab 11/21/12 0600 WBC 10.5 HGB 8.3* HCT 26.8* PLT 250 NEUTOPHILPCT 65.8 MONOPCT 9.1 Lab 11/21/12 0600 NA 137 K 3.9 CL 110* CO2 18* BUN 20 CREATININE 1.59* CALCIUM -- PROT 6.5 BILITOT 0.3 ALKPHOS -- ALT 15 AST 52* GLUCOSE -- Phosphorus: Lab 11/21/12 0600 PHOS 4.4 Lab 11/21/12 0600 MG 1.7 No results found for this basename: AMYLASE:3 in the last 168 hours No results found for this basename: PHART:3,PO2ART:3,YLN1LGT:3,A1QTSLSQ:3,BEART:[address] 168 hours Lab 11/21/12 0600 APTT 62* INR -- PTT -- No results found for this basename: TSH:3,T3FREE:3,FREET4:3 in the last 168 hours Lab 11/21/12 0600 CKTOTAL 570* TROPONINI 14.10* TROPONINT -- CKMBINDEX 9.8 PROBLEM LIST Principal Problem: *NSTEMI (non-ST elevated myocardial infarction) Active Problems: ARF (acute renal failure) Rheumatoid arthritis CKD (chronic kidney disease) Obesity, unspecified ASSESSMENT & PLAN Principal Problem: *NSTEMI (non-ST elevated myocardial infarction) Active Problems: ARF (acute renal failure) Rheumatoid arthritis CKD (chronic kidney disease) Obesity, unspecified Non-ST elevation myocardial infarction with elevated troponin. Dr. Padron from cardiology w ill see the patient In this am Will need for cardiac catheterization with troponin climbi ng ( patient NPO) continue heparin drip and nitroglycerin drip. Headche from NTG Drip pain meds on board . Acute renal on chronic on normal saline 150 mL/hr and monitor her kidney function. BP r eview arthritis. Cont Plaquenil and prednisone. moniter BS History of tuberculosis pleural effusion. Currently no acute symptoms. No productive coug h. No hemoptysis. No weight loss and no night sweats. On INH , ethambutol LFT review . Deep venous thrombosis prophylaxis. already on anticoagulation with heparin drip. 30 minutes of visit, face to face, 50% of time spend co-ordination of care, counseling, e ducation, medication review with patient regarding medical issues. ARIANNE FUNES MD MD 11/21/2012 8:37 AM onversion Transac tion, Provider Unknown - 11/21/2012 2:13 AM PDTFormatting of this note might be different f rom the original. Progress Notes by Tobin Ivey RPH at 11/21/12212 Author: Tobin Ivey RPH Service: (none) Author Type: Pharmacist Filed: 11/21/12212 Date of Service: 11/21/12212 Status: Signed Photography Sales Associate: Tobin Ivey RPH (Pharmacist) Clinical Pharmacy Note: Renal Monitoring Jessie Pierson 47 y.o. female Ht Readings from Last 1 Encounters: 11/20/12 1.575 m (5' 2") Wt Readings from Last 1 Encounters: 11/20/12 86.183 kg (190 lb) CREATININE Date Value Range Status 01/25/2012 1.77* 0.50 - 1.00 mg/dL Final Testing performed at [facility] [place] [address];[place] [address] Creatinine clearance cannot be calculated - Pharmacy dosing for renal function per Dr. Victoria. Currently, there are no medications needing to be adjusted. Pharmacy will continue to monit or for changes in medication orders and in renal function and adjust accordingly. Tobin Ivey RPh 11/21/2012 2:13 AM docume nted in this encounter H&P Notes Daniela Victoria MD - 11/21/2012 12:08 AM PDTFormatting of this note might be dif ferent from the original. H&P by Daniela Victoria MD at 11/21/127 Author: Daniela Victoria MD Service: (none) Author Type: Physician Filed: 11/21/121910 Date of Service: 11/21/127 Status: Signed Photography Sales Associate: Danieal Victoria MD (Physician) Related Notes: Original Note by Daniela Victoria MD (Physician) filed at 11/21/12 0508 [facility] Service: Hospitalist Admission History & Physical Date of Admission: 11/20/2012 Requesting Physician: Jeremy, Emergency Department Reason for Admission: NSTEMI History Obtained From: patient CHIEF COMPLAINT: Chest pain. HISTORY OF PRESENT ILLNESS The patient is a 47 y.o. female with significant past medical history. The patient is a transfer from [facility] in [place] for a chief complaint that she has chest pain early in the day around 3 o'clock in the evening and then she went to [facility] around 8 p.m. At that time they checked her troponin and it was above 5. The zeina ent was started on a nitroglycerin drip, heparin drip and was transferred to our service for further management. The patient currently is chest pain free. She has quit smoking about 3 months ago. Her father from heart attack at the age of 62. The patient also report some shortness of breath and dyspnea on exertion but now she has no symptoms. The patient jose m schilling has a headache from the nitroglycerin. We gave her Tylenol followed by Dilaudid and now she is headache free. The patient is lying comfortably in bed. She is not in apparent distre ss. She denied any nausea or vomiting. No diaphoresis. No palpitation. No urinary symptoms a nd no other significant complaint. REVIEW OF SYSTEMS Negative except for pertinent items noted in HPI. Past Medical History Diagnosis Date Rheumatoid arthritis Past Surgical History Procedure Date Gall stone removal Tumor removal Neck Tonsillectomy Cholecystectomy Immunizations: Influenza: Not indicated Pneumoccocal: Not indicated No Known Allergies (Not in a hospital admission) Family History Problem Relation Age of Onset Diabetes type II Mother High cholesterol Father Diabetes type II Father Thyroid disease Sister Kidney disease Neg Hx History Social History Marital Status: Spouse Name: N/A Number of Children: N/A Years of Education: N/A Occupational History Not on file. Social History Main Topics Smoking status: Former Smoker Smokeless tobacco: Not on file Comment: Quit about 2 months ago. Alcohol Use: No Drug Use: No Sexually Active: Yes Other Topics Concern Not on file Social History Narrative Lives with her boyfrienRosa [facility] quit 2 months 1/2 ppd for 15 yearsetoh very occasionallyDrugs noneFather might have kidney problemsMother lives [place] has dm-2 PHYSICAL EXAM Vital Signs: BP 148/69 | Pulse 86 | Temp 97.5 F (36.4 C) (Oral) | Resp 17 | Ht 1.575 m (5' 2") | Wt 86.183 kg (190 lb) | BMI 34.75 kg/m2 | SpO2 97% General Appearance: Alert, cooperative, no distress, appears stated age Head: Normocephalic, without obvious abnormality, atraumatic Eyes: PERRL, conjunctiva/corneas clear, EOM's intact, fundi benign, both eyes Ears: Normal TM's and external ear canals, both ears Nose: Nares normal, septum midline, mucosa normal, no drainage or sinus tenderness Throat: Lips, mucosa, and tongue normal; teeth and gums normal Neck: Supple, symmetrical, trachea midline, no adenopathy; thyroid: No enlargement/tenderness/nodules; no carotid bruit or JVD Back: Symmetric, no curvature, ROM normal, no CVA tenderness Lungs: Clear to auscultation bilaterally, respirations unlabored Chest wall: No tenderness or deformity Heart: Regular rate and rhythm, S1 and S2 normal, no murmur, rub or gallop Abdomen: Soft, non-tender, bowel sounds active all four quadrants, no masses, no organomegaly Extremities: Extremities normal, atraumatic, no cyanosis or edema Pulses: 2+ and symmetric all extremities Skin: Skin color, texture, turgor normal, no rashes or lesions Lymph nodes: Cervical, supraclavicular, and axillary nodes normal Neurologic: CNII-XII intact. Normal strength, sensation and reflexes throughout DATA CBC: Lab Results Component Value Date WBC 10.2 01/25/2012 RBC 3.75 01/25/2012 HGB 8.6* 01/25/2012 HCT 27.4* 01/25/2012 MCV 72.8* 01/25/2012 MCH 23.0* 01/25/2012 MCHC 31.5* 01/25/2012 RDW 55.6* 01/25/2012 PLT 266 01/25/2012 MPV 9.4 01/25/2012 DIFFTYPE AUTOMATED 01/25/2012 CMP: Lab Results Component Value Date NA 141 01/25/2012 K 4.3 01/25/2012 CL 115* 01/25/2012 CO2 16* 01/25/2012 ANIONGAP 15 01/25/2012 GLUF 97 01/25/2012 BUN 23 01/25/2012 CREATININE 1.77* 01/25/2012 BCR 13 01/25/2012 CA 8.2* 01/25/2012 PROT 7.4 01/25/2012 ALB 2.8* 01/25/2012 GLOB 4.6 01/25/2012 BILITOT 0.2 01/25/2012 ALP 45 01/25/2012 AST 8* 01/25/2012 ALT 12 01/25/2012 EGFR 32* 01/25/2012 PT/INR: Lab Results Component Value Date INR 1.2 11/14/2011 PROBLEM LIST Principal Problem: *NSTEMI (non-ST elevated myocardial infarction) Active Problems: ARF (acute renal failure) Rheumatoid arthritis CKD (chronic kidney disease) Obesity, unspecified ASSESSMENT & PLAN 1. Non-ST elevation myocardial infarction as evidenced with elevated troponin. Her electroc ardiogram showed no acute ST elevation or depression or depression[facility] in consultation. He asked us to keep her nothing by mouth for possib le need for cardiac catheterization in the morning. In the meantime we will continue heparin drip and nitroglycerin drip. 2. Acute renal failure. We will start the patient on normal saline 150 mL/hr and monitor he r kidney function. 3. History of arthritis. We will resume Plaquenil and prednisone. 4. History of tribulosis pleural effusion. Currently she has no acute symptoms. No producti ve cough. No hemoptysis. No weight loss and no night sweats. 5. Gastrointestinal prophylaxis. Not required. 6. Deep venous thrombosis prophylaxis. Full anticoagulation with heparin drip. 7. FULL CODE. Time for admission 75 minutes. Disposition: admit to medical floor. Code Status: Full code. Primary Care Physician: ANTHONY VICTORIA MD 11/21/2012 documente d in this encounter Consult Notes Zacarias Padron MD - 11/21/2012 9:22 AM PDTFormatting of this note might be dif ferent from the original. Consults by Zacarias Padron MD at 11/21/12 09 Author: Zacarias Padron MD Service: (none) Author Type: Physician Filed: 11/26/12 1432 Date of Service: 11/21/12921 Status: Signed Photography Sales Associate: Zacarias Padron MD (Physician) Related Notes: Original Note by Zacarias Padron MD (Physician) filed at 11/21/12 09 25 REASON FOR CONSULTATION Evaluate cardiac status. HISTORY OF PRESENT ILLNESS This is a 47-year-old female with no prior cardiac history who states at approxima tely 3 o'clock yesterday afternoon she began to experience a substernal crushing heaviness t hat felt like someone was sitting on her. She had never experienced anything like this befor e and fairly promptly called the ambulance, who gave her 2 sublingual nitroglycerin which re lieved her discomfort. She was taken to the emergency room in [facility], and had an unremarkable ECG but an elevated troponin and was transferred here for further evaluation. O vernight her troponin has risen to 14. She has remained pain free. PAST MEDICAL HISTORY Other past medical history: 1. Chronic renal insufficiency. Creatinine is 1.7. 2. Arthritis. HOME MEDICATIONS Something for arthritis that she does not know the name of, she just started. ALLERGIES NONE. HABITS She is a nonsmoker, nondrinker. Approximately a 6-pack of pop a day. SOCIAL HISTORY She is , without children. FAMILY HISTORY Father had an MS and in his 50s. PHYSICAL EXAMINATION GENERAL: This is a well-developed, overlying nourished 47-year-old female who is a wake, alert, and oriented x4, in no acute distress. VITAL SIGNS: Blood pressure is 133/75, pulse is in the 80s and regular, respirations are 20 and unlabored. She is afebrile. NECK: No JVD. No bruits. LUNGS: Clear, with adequate air movement. HEART: Regular, without murmur, rub, or gallop. ABDOMEN: Soft, obese, nontender, nondistended. EXTREMITIES: No cyanosis, clubbing, or edema. Pulses are intact, symmetrical. PELVIC: Deferred. NEUROLOGIC: Nonfocal. ELECTROCARDIOGRAM ECG shows sinus rhythm and nonspecific ST changes. IMPRESSION Non-Q-wave myocardial infarction. PLAN Elective cardiac catheterization later today. documented in this encounter ED Notes Conversion Transaction, Provider Unknown - 11/21/2012 1:24 AM PDTFormatting of this note m ight be different from the original. ED Notes by Rene Fleming RN at 11/21/12 0124 Author: Rene Fleming RN Service: (none) Author Type: Registered Nurse Filed: 11/21/12124 Date of Service: 11/21/12123 Status: Signed Photography Sales Associate: Rene Fleming RN (Registered Nurse) Report called to KARI Garibay on 4RP. Rene Fleming RN 11/21/12124 onver stella Transaction, Provider Unknown - 11/21/2012 1:08 AM PDT ED Notes by Rene Fleming RN at 11/21/12107 Author: Rene Fleming RN Service: (none) Author Type: Registered Nurse Filed: 11/21/12107 Date of Service: 11/21/12107 Status: Signed Photography Sales Associate: Rene Fleming RN (Registered Nurse) Bedside report received and care assumed at this time. Bed rails up x1, call light within r each. Patient updated to change in primary RN, plan of care. Rene Fleming RN 11/21/12107 onver stella Transaction, Provider Unknown - 11/20/2012 10:06 PM PDT ED Notes by Sonia Sargent RN at 11/20/122205 Author: Sonia Sargent RN Service: (none) Author Type: Registered Nurse Filed: 11/20/122205 Date of Service: 11/20/122205 Status: Signed Photography Sales Associate: Sonia Sargent RN (Registered Nurse) Pt on cardiac rehab nurse. client technical support associate phoned. Sonia Sargent RN 11/20/122205 lysses Milligan MD - 11/20/2012 10:04 PM PDT ED Provider Notes by Ulysses Luna DO at 11/20/122203 Author: Ulysses Luna DO Service: (none) Author Type: Physician Filed: 11/22/12 0756 Date of Service: 11/20/122203 Status: Signed Photography Sales Associate: Ulysses Luna DO (Physician) [facility] Department of Emergency Medicine Pre-arrival Provider: Another ED Provider Name: Dr. Larose Pertinent History and Concerns: Chest pain, 3 NTG down at this time - EKG no STEMI Relevant Labs or Studies: Also has an elevated d-dimer (11/20/122051 : MERVAT RUANO) History of Present Illness Patient Identification Jessie Pierson is a 47 y.o. female. Patient information was obtained from patient. History/Exam limitations: none. Patient presented to the Emergency Department by: [facility] Chief Complaint Chief Complaint Patient presents with Chest Pain troponin 5.25, CKMB elevated. Transfer from [facility]. 2222 The patient presents to ED as a transfer from [facility] with chest pain that radiates to the back. Onset of symptoms was 3PM, with a constant course since that time. The symptoms a re described to be of moderate severity. There are no other complaints at this time. Symptom s exacerbated by exertion and palpations of the chest. Pt states that Friday after dinner she vomited and all day yesterday she felt weak. Pt is not in pain at this time. 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 The pt has no pertinent medical history. PCP: ANTHONY SIGALA Past Medical History Diagnosis Date Rheumatoid arthritis Past Surgical History Procedure Date Gall stone removal Tumor removal Neck Tonsillectomy Cholecystectomy Prior to Admission medications Medication Sig Start Date End Date Taking? Authorizing Provider albuterol (PROVENTIL HFA;VENTOLIN HFA) 108 (90 BASE) MCG/ACT inhaler Inhale 2 puffs into th e lungs every 6 (six) hours as needed for Wheezing. 01/25/12 01/24/13 Elias Lorenz MD ethambutol (MYAMBUTOL) 400 MG tablet Take 4,000 mg by mouth twice a week. 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 02/05/12 02/04/13 Erik Jarrett MD hydroxychloroquine (PLAQUENIL) 200 MG tablet Take 400 mg by mouth daily. Historical Prov ider predniSONE (DELTASONE) 10 MG tablet Take 10 mg by mouth daily. Historical Provider pyrazinamide 500 MG tablet Take 3 tablets by mouth daily. 01/25/12 01/24/13 Elias Lorenz MD pyridoxine (B-6) 25 MG tablet Take 1 tablet by mouth daily. 01/25/12 01/24/13 Elias Lorenz MD sodium bicarbonate 650 MG tablet Take 2 tablets by mouth 2 (two) times daily. 02/05/12 Erik Jarrett MD No Known Allergies History Social History Marital Status: Spouse Name: N/A Number of Children: N/A Years of Education: N/A Occupational History Not on file. Social History Main Topics Smoking status: Former Smoker Smokeless tobacco: Not on file Comment: Quit about 2 months ago. Alcohol Use: No Drug Use: No Sexually Active: Yes Other Topics Concern Not on file Social History Narrative Lives [facility]frienRosa [facility] quit 2 months 1/2 ppd for 15 yearsetoh very occasionallyDrugs noneFather might have kidney problemsMother lives [place] has dm-2 Family History Problem Relation Age of Onset Diabetes type II Mother High cholesterol Father Diabetes type II Father Thyroid disease Sister Kidney disease Neg Hx Review of Systems Constitutional: Negative for: fever, chills Eyes: Negative for: decreased vision or irritated eyes Nose: Negative for: nosebleed Throat: Negative for: sore throat or dysphagia Cardiovascular/Respiratory: Negative for: shortness of breath, cough Positive for: chest pain Gastrointestinal: Negative for: abdominal pain, nausea/vomiting, diarrhea, constipa tion, black or bloody stools Genitourinary: Negative for: dysuria, hematuria, or increased urinary frequency Musculoskeletal: Negative for: Joint pain, myalgias, or restriction of range of motion Skin: Negative for: laceration or lesion Neuro and psych: Negative for: fainting, head injury, seizure, trouble walking Endocrine/Heme/Lymph: Negative for: swollen lymph nodes, easy bruising All other systems were reviewed and are subjectively reported as negative. Physical Exam BP 144/68 | Pulse 88 | Temp 97.5 F (36.4 C) (Oral) | Resp 18 | Ht 1.575 m (5' 2") | Wt 86.183 kg (190 lb) | BMI 34.75 kg/m2 | SpO2 97% Vital signs interpretation: Normal Pulse Oximetry interpretation: Normal General: Alert, no active distress and not requiring any emergent interventions Eyes: Normal inspection, pupils equal and round, non-icteric sclera ENT: Ears normal Nose normal without discharge or drainage Pharynx normal with no exudates or discharge Neck: Normal inspection with no lymphadenopathy Supple Full ROM No carotid bruit with midline trachea Cardiovascular: Normal rate and rhythm, no extra sounds No murmurs rubs or gallops Focal PMI Respiratory: No respiratory distress or wheezing Normal excursion No retractions Abdomen: Soft, non-tender, non-distended Normal active bowel sounds Back: Normal inspection Without tenderness or deformity Skin: Color normal Warm and dry Extremities: CULVER with equal pulses in the upper and lower extremities bilaterally Neuro: No gross motor/sensory deficit GCS 15 No cerebellar deficits Alert and oriented to person, place, time and situation. Medical Decision Making and Emergency Department Course ED Department Course Patient presents to ED as a transfer from [facility]. Patient transfer for cardiac work u p NSTEMI: The patient is a XX year old male female with chest pain who presented to a facility prior to transfer to [facility] for further treatment and care with cardiac etiology as the reason for t he patient s chest pain. The patient was transferred for further evaluation of chest pain which is considered likely to be cardiac in nature. I will review the records, laboratory an alysis, Troponin, and electrocardiogram from the referring facility. I will order an electro cardiogram and istat troponin. I will admit to the hospitalist land surveying survey worker once I have reviewed the labs and relevant [facility]. 2230 Reviewed the pt's labs from [facility]. Pt's troponin was 5.25 there. 2250 Reviewed the pt's troponin which is positive at 6.28. [address] Padron who will consult the pt he will plan on catheterizing th pt tomor row after admission. 2328 Conferred with about pt case. He will return my call with a request as to how he wou ld like me to further the pt's care. He is not patients primary care provider. He reports pr imary is from [place]. 2347 Pt will be admitted to the hospital for further care. Discussed case with hospitalist who w ill admit patient to his service. Filed Vitals: 07/14/13 0755 BP: 138/66 Pulse: Temp: Resp: SpO2: Records Reviewed Old ED records reviewed (Using the electronic record system of [facility], Ruperto harding reviewed the records with regard to the past medical/surgical history, previous medic ations, and allergies). Nursing notes.Nursing notes reviewed for chief complaint, medications, clinical presentatio n and vital signs. Laboratory Evaluation Results Procedure Component Value Ref Range Date/Time POC cardiac troponin [[id number]] (Abnormal) Collected:11/20/122235 Order Status:Completed Updated:11/20/122249 POC CARDIAC TROPONIN 6.28 (HH) 0.00 - 0.10 ng/mL I personally reviewed the lab results and they have been posted to the chart. Pertinent po sitive and negative findings have been addressed appropriately. Radiology and EKG Evaluation Imaging Results None ED Diagnoses Final diagnoses NSTEMI (non-ST elevated myocardial infarction) Elevated troponin I level Acute renal failure Disposition: ED Disposition Admit/Observation Requested Unit:: Cardiac Unit Bed request special needs: None Diagnosis?: NSTEMI with elevated cardiac markers Diagnosis?: renal insufficiency with GFR 32 with cr 1.70 Follow-up Information None Discharge Medications: New Prescriptions No new medications Additional Documentation Procedures Attending Note: Documentation assistance provided by Yas Dawn (Scribe). Information recorded by the scribe has been reviewed and validated by me. I elzbieta farrell with its contents. DO Ulysses Delgado DO 11/22/126 onversion Transac tion, Provider Unknown - 11/20/2012 10:03 PM PDTFormatting of this note might be different f rom the original. ED Notes by Sonia Sargent RN at 11/20/122202 Author: Sonia Sargent RN Service: (none) Author Type: Registered Nurse Filed: 11/20/122203 Date of Service: 11/20/122202 Status: Signed Photography Sales Associate: Sonia Sargent RN (Registered Nurse) Pt arrives in this ED with Heparin drip 1000 units/hr and Nitroglycerin 10 mcg/min. IV medi cations stopped at this time. Sonia Sargent RN 11/20/122203 onver stella Transaction, Provider Unknown - 11/20/2012 9:59 PM PDT ED Notes by Sonia Sargent RN at 11/20/122158 Author: Sonia Sargent RN Service: (none) Author Type: Registered Nurse Filed: 11/20/122158 Date of Service: 11/20/122158 Status: Signed Photography Sales Associate: Sonia Sargent RN (Registered Nurse) Bed:17
Expected date:
Expected time:
Means of arrival:
Comments:
[facility] onver stella Transaction, Provider Unknown - 11/20/2012 9:28 PM PDT ED Notes by Molina Lopez RN at 11/20/122127 Author: Molina Lopez RN Service: (none) Author Type: Registered Nurse Filed: 11/20/122129 Date of Service: 11/20/122127 Status: Signed Photography Sales Associate: Molina Lopez RN (Registered Nurse) Pt is a transfer from [facility]. Pt had onset of chest pain at about 1500 tod ay at work, arrived at [facility] at about 2000 tonight. Pt has hx arthritis and is a fo rmer smoker. Father of MS at about 62 years old. Troponin 5.25, EKG NSR, no obvious s -t elevation. Also C/o sob, respiratory rate varies from 20-30 breaths/min. Has nausea. O bese. A/o x3. Molina Lopez RN 11/20/122129 docume nted in this encounter Plan of Treatment Not on filedocumented as of this encounter Procedures + +--------+ + + + | Procedure Name | Priori | Date/Time | Associated Diagnosis | Comments | | | ty | | | | + +--------+ + + + | ECG 12 LEAD | Routin | 11/22/2012 | | Results for this | | | e | 6:25 AM | | procedure are in the | | | | PDT | | results section. | + +--------+ + + + | ECG 12 LEAD | Routin | 11/21/2012 | | Results for this | | | e | 12:13 PM | | procedure are in the | | | | PDT | | results section. | + +--------+ + + + | CV CARDIAC PROCEDURE | Routin | 11/21/2012 | | Results for this | | | e | 11:30 AM | | procedure are in the | | | | PDT | | results section. | + +--------+ + + + | CV CARDIAC PROCEDURE | Routin | 11/21/2012 | | Results for this | | | e | 11:30 AM | | procedure are in the | | | | PDT | | results section. | + +--------+ + + + | ECG 12 LEAD | Routin | 11/20/2012 | | Results for this | | | e | 10:13 PM | | procedure are in the | | | | PDT | | results section. | + +--------+ + + + documented in this encounter Results ECG 12 lead (11/22/2012 6:25 AM PDT) + + + + + + | Component | Value | Ref Range | Performed | Pathologist | | | | | At | Signature | + + + + + + | DIAGNOSIS: | Normal sinus rhythmLeft | | EXTERNAL | | | | anterior fascicular | | LAB | | | | blockAbnormal ECGWhen | | | | | | compared with ECG of | | | | | | 21-NOV-2012 | | | | | | 12:13,Nonspecific T wave | | | | | | abnormality, improved | | | | | | in Lateral | | | | | | leadsConfirmed by | | | | | | GIGI WOODRUFF ([id number]) on | | | | | | 11/22/2012 5:14:54 PM | | | | + + + + + + + + | Specimen | + + | | + + + + + | Narrative | Performed At | + + + | Historically converted procedure from [facility] Epic environment | EXTERNAL LAB | + + + + +---------+ + + | Performing | Address | City/State/Zipcode | Phone Number | | Organization | | | | + +---------+ + + | EXTERNAL LAB | | | | + +---------+ + + ECG 12 lead (11/21/2012 12:13 PM PDT) + + + + + + | Component | Value | Ref Range | Performed | Pathologist | | | | | At | Signature | + + + + + + | DIAGNOSIS: | Normal sinus rhythmLeft | | EXTERNAL | | | | axis | | LAB | | | | deviationNonspecific T | | | | | | wave | | | | | | abnormalityProlonged | | | | | | QTAbnormal ECGWhen | | | | | | compared with ECG of | | | | | | 20-NOV-2012 22:13,No | | | | | | significant change was | | | | | | foundConfirmed by | | | | | | GIGI WOODRUFF ([id number]) on | | | | | | 11/21/2012 1:37:34 PM | | | | + + + + + + + + | Specimen | + + | | + + + + + | Narrative | Performed At | + + + | Historically converted procedure from [facility] | EXTERNAL LAB | + + + + +---------+ + + | Performing | Address | City/State/Zipcode | Phone Number | | Organization | | | | + +---------+ + + | EXTERNAL LAB | | | | + +---------+ + + CV CARDIAC PROCEDURE (11/21/2012 11:30 AM PDT) + + | Specimen | + + | | + + + + + | Narrative | Performed At | + + + | | | | | | | PROCEDURES 1. Left heart catheterization. 2. Coronary angiography. | | | 3. Intracoronary stent implantation to left circumflex coronary | | | artery. ESTIMATED BLOOD LOSS Less than 50 mL. RESULTS Aortic | | | pressure is 162/91, with a mean of 121. Left ventricular pressure is | | | 155/12, with an EDP of 37. ARTERIOGRAPHY 1. Left main coronary | | | artery is normal. 2. Left anterior descending is normal. 3. Left | | | circumflex has a mid vessel 95% narrowing that appears to have some | | | mild residual thrombus. 4. Right coronary artery has 2 proximal 20% | | | to 30% narrowings, but is a large co-dominant artery. LEFT | | | VENTRICULOGRAM Normal left ventricular systolic function without | | | regional wall motion abnormalities. Aortic and mitral valves are | | | structurally unremarkable. IMPRESSION One-vessel coronary artery | | | disease. CORONARY INTERVENTION I elected to intervene upon this. | | | A 6-Tristanian XB 3.5 guide catheter was placed in the left main coronary | | | os and an 0.014 Pasting Machine Offbearer 50 guidewire was advanced down the left | | | circumflex with minimal difficulty. A 4 x 15 mm Vision stent catheter | | | was advanced to the lesion and positioned with cine assistance. It | | | was inflated up to 10 atmospheres for 20 seconds, deflated, | | | reinflated to 10 atmospheres for 10 seconds. Hand injection showed | | | excellent results with 0% restenosis. The patient tolerated the | | | procedure well. Pharmacologically, she came down on heparin and | | | nitroglycerin drips. She was given additional 2000 units of | | | intravascular heparin on sheath insertion. ACT is pending post | | | procedure. She was begun on a double bolus and drip of Integrilin at | | | the beginning of the interventional portion of the case and orally | | | loaded with Plavix at termination of the case. Read by | | | ZACARIAS PADRON MD 11/21/2012 11:16 A | | + + + + + | Procedure Note | + + | Robin Rad Conversion - 01/01/2019 10:42 PM PDT | | | | PROCEDURES | | 1. Left heart catheterization. | | 2. Coronary angiography. | | 3. Intracoronary stent implantation to left circumflex coronary artery. | | | | ESTIMATED BLOOD LOSS | | Less than 50 mL. | | | | RESULTS | | Aortic pressure is 162/91, with a mean of 121. | | Left ventricular pressure is 155/12, with an EDP of 37. | | | | ARTERIOGRAPHY | | 1. Left main coronary artery is normal. | | 2. Left anterior descending is normal. | | 3. Left circumflex has a mid vessel 95% narrowing that appears to have | | some mild residual thrombus. | | 4. Right coronary artery has 2 proximal 20% to 30% narrowings, but is a | | large co-dominant artery. | | | | LEFT VENTRICULOGRAM | | Normal left ventricular systolic function without regional wall motion | | abnormalities. Aortic and mitral valves are structurally unremarkable. | | | | IMPRESSION | | One-vessel coronary artery disease. | | | | CORONARY INTERVENTION | | I elected to intervene upon this. A 6-Tristanian XB 3.5 guide catheter was | | placed in the left main coronary os and an 0.014 Pasting Machine Offbearer 50 guidewire was | | advanced down the left circumflex with minimal difficulty. A 4 x 15 mm | | Vision stent catheter was advanced to the lesion and positioned with cine | | assistance. It was inflated up to 10 atmospheres for 20 seconds, deflated, | | reinflated to 10 atmospheres for 10 seconds. Hand injection showed | | excellent results with 0% restenosis. The patient tolerated the procedure | | well. Pharmacologically, she came down on heparin and nitroglycerin drips. | | She was given additional 2000 units of intravascular heparin on sheath | | insertion. ACT is pending post procedure. She was begun on a double bolus | | and drip of Integrilin at the beginning of the interventional portion of | | the case and orally loaded with Plavix at termination of the case. | | | | | | Read by ZACRAIAS PADRON MD 11/21/2012 11:16 A | | | | | + + CV CARDIAC PROCEDURE (11/21/2012 11:30 AM PDT) + + | Specimen | + + | | + + + + + | Narrative | Performed At | + + + | | | | | | | PROCEDURES 1. Left heart catheterization. 2. Coronary angiography. | | | 3. Intracoronary stent implantation to left circumflex coronary | | | artery. ESTIMATED BLOOD LOSS Less than 50 mL. RESULTS Aortic | | | pressure is 162/91, with a mean of 121. Left ventricular pressure is | | | 155/12, with an EDP of 37. ARTERIOGRAPHY 1. Left main coronary | | | artery is normal. 2. Left anterior descending is normal. 3. Left | | | circumflex has a mid vessel 95% narrowing that appears to have some | | | mild residual thrombus. 4. Right coronary artery has 2 proximal 20% | | | to 30% narrowings, but is a large co-dominant artery. LEFT | | | VENTRICULOGRAM Normal left ventricular systolic function without | | | regional wall motion abnormalities. Aortic and mitral valves are | | | structurally unremarkable. IMPRESSION One-vessel coronary artery | | | disease. CORONARY INTERVENTION I elected to intervene upon this. | | | A 6-Tristanian XB 3.5 guide catheter was placed in the left main coronary | | | os and an 0.014 Pasting Machine Offbearer 50 guidewire was advanced down the left | | | circumflex with minimal difficulty. A 4 x 15 mm Vision stent catheter | | | was advanced to the lesion and positioned with cine assistance. It | | | was inflated up to 10 atmospheres for 20 seconds, deflated, | | | reinflated to 10 atmospheres for 10 seconds. Hand injection showed | | | excellent results with 0% restenosis. The patient tolerated the | | | procedure well. Pharmacologically, she came down on heparin and | | | nitroglycerin drips. She was given additional 2000 units of | | | intravascular heparin on sheath insertion. ACT is pending post | | | procedure. She was begun on a double bolus and drip of Integrilin at | | | the beginning of the interventional portion of the case and orally | | | loaded with Plavix at termination of the case. Read by | | | ZACARIAS PADRON MD 11/21/2012 11:16 A | | + + + + + | Procedure Note | + + | Jayme Kelly Conversion - 01/01/2019 10:42 PM PDT | | | | PROCEDURES | | 1. Left heart catheterization. | | 2. Coronary angiography. | | 3. Intracoronary stent implantation to left circumflex coronary artery. | | | | ESTIMATED BLOOD LOSS | | Less than 50 mL. | | | | RESULTS | | Aortic pressure is 162/91, with a mean of 121. | | Left ventricular pressure is 155/12, with an EDP of 37. | | | | ARTERIOGRAPHY | | 1. Left main coronary artery is normal. | | 2. Left anterior descending is normal. | | 3. Left circumflex has a mid vessel 95% narrowing that appears to have | | some mild residual thrombus. | | 4. Right coronary artery has 2 proximal 20% to 30% narrowings, but is a | | large co-dominant artery. | | | | LEFT VENTRICULOGRAM | | Normal left ventricular systolic function without regional wall motion | | abnormalities. Aortic and mitral valves are structurally unremarkable. | | | | IMPRESSION | | One-vessel coronary artery disease. | | | | CORONARY INTERVENTION | | I elected to intervene upon this. A 6-Tristanian XB 3.5 guide catheter was | | placed in the left main coronary os and an 0.014 Pasting Machine Offbearer 50 guidewire was | | advanced down the left circumflex with minimal difficulty. A 4 x 15 mm | | Vision stent catheter was advanced to the lesion and positioned with cine | | assistance. It was inflated up to 10 atmospheres for 20 seconds, deflated, | | reinflated to 10 atmospheres for 10 seconds. Hand injection showed | | excellent results with 0% restenosis. The patient tolerated the procedure | | well. Pharmacologically, she came down on heparin and nitroglycerin drips. | | She was given additional 2000 units of intravascular heparin on sheath | | insertion. ACT is pending post procedure. She was begun on a double bolus | | and drip of Integrilin at the beginning of the interventional portion of | | the case and orally loaded with Plavix at termination of the case. | | | | | | Read by ZACARIAS PADRON MD 11/21/2012 11:16 A | | | | | + + ECG 12 lead (11/20/2012 10:13 PM PDT) + + + + + + | Component | Value | Ref Range | Performed | Pathologist | | | | | At | Signature | + + + + + + | DIAGNOSIS: | Normal sinus rhythmLeft | | EXTERNAL | | | | axis | | LAB | | | | deviationNonspecific T | | | | | | wave abnormalityAbnormal | | | | | | ECGWhen compared with | | | | | | ECG of 14-NOV-2011 | | | | | | 12:21,T wave inversion | | | | | | now evident in Lateral | | | | | | leadsThis ECG contains | | | | | | Unconfirmed | | | | | | Interpretation | | | | | | Statements. See ED | | | | | | Record for Physician | | | | | | Interpretation. | | | | | | Confirmed by MUSE READ | | | | | | ONLY, -COMPUTER ([id number]), | | | | | | PILAR Ambriz | | | | | | (4) on 11/21/2012 7:44:36 | | | | | | AM | | | | + + + + + + + + | Specimen | + + | | + + + + + | Narrative | Performed At | + + + | Historically converted procedure from [facility] | EXTERNAL LAB | + + + + +---------+ + + | Performing | Address | City/State/Zipcode | Phone Number | | Organization | | | | + +---------+ + + | EXTERNAL LAB | | | | + +---------+ + + documented in this encounter Visit Diagnoses + + | Diagnosis | + + | NSTEMI (non-ST elevated myocardial infarction) (HCC) Acute myocardial infarction, | | subendocardial infarction, episode of care unspecified | + + | ARF (acute renal failure) (HCC) Acute kidney failure, unspecified | + + | CKD (chronic kidney disease) Chronic kidney disease, unspecified | + + | Rheumatoid arthritis(714.0) Rheumatoid arthritis | + + | Elevated troponin I level Other abnormal blood chemistry | + + | Acute renal failure (HCC) Acute kidney failure, unspecified | + + documented in this encounter
--- OUTSIDE RECORDS SUMMARY | ~2019-11-29 | XMS | Encounter Summary ---
Demographics + + + | Address | [address] | | | [place] [address] | + + + | Home Phone | | + + + | Preferred Language | Unknown | + + + | Marital Status | | + + + | Adventist Affiliation | Unknown | + + + | Race | Unknown | + + + | Ethnic Group | Unknown | + + + Author + + + | Author | [facility] | | | and [place] | + + + | Organization | [facility] | | | and [...] Team Providers + +------+ + | Care Massage Coordinator Name | Role | Phone | + +------+ + | Kyle Richey DO | PCP | | + +------+ + Encounter Details +--------+ + + + + | Date | Type | Department | Care Team | Description | +--------+ + + + + | 01/16/ | Abstract | [facility] | Laisha Celestin, | | | 2016 | | CARDIOLOGY [address] | [employer] | | | | | [place], | | | | | | [place] [address] | | | | | | [phone] | | | +--------+ + + + [...] | EXTERNAL LAB: BUN | Routin | 01/16/2016 | | Results for this | | | e | | | procedure are in the | | | | | | results section. | + +--------+ + + + | EXTERNAL LAB: | Routin | 01/16/2016 | | Results for this | | GLUCOSE | e | | | procedure are in the | | | | | | results section. | + +--------+ + + + | EXTERNAL LAB: | Routin | 01/16/2016 | | Results for this | | CALCIUM | e | | | procedure are in the | | | | | | results section. | + +--------+ + + + | EXTERNAL LAB: CARBON | Routin | 01/16/2016 | | Results for this | | DIOXIDE | e | | | procedure are in the | | | | | | results section. | + +--------+ + + + | EXTERNAL LAB: | Routin | 01/16/2016 | | Results for this | | CHLORIDE | e | | | procedure are in the | | | | | | results section. | + +--------+ + + + | EXTERNAL LAB: | Routin | 01/16/2016 | | Results for this | | POTASSIUM | e | | | procedure are in the | | | | | | results section. | + +--------+ + + + | EXTERNAL LAB: SODIUM | Routin | 01/16/2016 | | Results for this | | | e | | | procedure are in the | | | | | | results section. | + +--------+ + + + | EXTERNAL LAB: EGFR | Routin | 01/16/2016 | | Results for this | | | e | | | procedure are in the | | | | | | results section. | + +--------+ + + + | EXTERNAL LAB: | Routin | 01/16/2016 | | Results for this | | CREATININE | e | | | procedure are in the | | | | | | results section. | + +--------+ + + + | BASIC METABOLIC | Routin | 01/16/2016 | | Results for this | | PANEL | e | | | procedure are in the | | | | | | results section. | + +--------+ + + + documented in this encounter Results Basic Metabolic Panel (01/16/2016) + + + + + + | Component | Value | Ref Range | Performed | Pathologist | | | | | At | Signature | + + + + + + | Anion Gap | 17 | 7 - 21 mmol/L | | | + + + + + + | Creatine, | 1.71 (A) | 0.70 - 1.33 | | | | Serum | | | | | + + + + + + + + | Specimen | + + | Blood specimen | | (specimen) | + + External Lab: BUN (01/16/2016) + +--------+ + + + | Component | Value | Ref Range | Performed | Pathologist | | | | | At | Signature | + +--------+ + + + | BUN, | 26 (A) | 6 - 23 | EXTERNAL | | | External | | | LAB | | + +--------+ + + + + +---------+ + + | Performing | Address | City/State/Zipcode | Phone Number | | Organization | | | | + +---------+ + + | EXTERNAL LAB | | | | + +---------+ + + External Lab: Glucose (01/16/2016) + +---------+ + + + | Component | Value | Ref Range | Performed | Pathologist | | | | | At | Signature | + +---------+ + + + | Glucose, | 129 (A) | 70 - 100 | EXTERNAL | | | External | | | LAB | | + +---------+ + + + + +---------+ + + | Performing | Address | City/State/Zipcode | Phone Number | | Organization | | | | + +---------+ + + | EXTERNAL LAB | | | | + +---------+ + + External Lab: Calcium (01/16/2016) + +-------+ + + + | Component | Value | Ref Range | Performed | Pathologist | | | | | At | Signature | + +-------+ + + + | Calcium, | 8.8 | 8.4 - 10.2 | EXTERNAL | | | External | | | LAB | | + +-------+ + + + + +---------+ + + | Performing | Address | City/State/Zipcode | Phone Number | | Organization | | | | + +---------+ + + | EXTERNAL LAB | | | | + +---------+ + + External Lab: Carbon Dioxide (01/16/2016) + +--------+ + + + | Component | Value | Ref Range | Performed | Pathologist | | | | | At | Signature | + +--------+ + + + | Carbon | 16 (A) | 19 - 31 | EXTERNAL | | | Dioxide, | | | LAB | | | External | | | | | + +--------+ + + + + +---------+ + + | Performing | Address | City/State/Zipcode | Phone Number | | Organization | | | | + +---------+ + + | EXTERNAL LAB | | | | + +---------+ + + External Lab: Chloride (01/16/2016) + +-------+ + + + | Component | Value | Ref Range | Performed | Pathologist | | | | | At | Signature | + +-------+ + + + | Chloride, | 108 | 95 - 112 | EXTERNAL | | | External | | | LAB | | + +-------+ + + + + +---------+ + + | Performing | Address | City/State/Zipcode | Phone Number | | Organization | | | | + +---------+ + + | EXTERNAL LAB | | | | + +---------+ + + External Lab: Potassium (01/16/2016) + +-------+ + + + | Component | Value | Ref Range | Performed | Pathologist | | | | | At | Signature | + +-------+ + + + | Potassium, | 4.2 | 3.6 - 5.1 | EXTERNAL | | | External | | | LAB | | + +-------+ + + + + +---------+ + + | Performing | Address | City/State/Zipcode | Phone Number | | Organization | | | | + +---------+ + + | EXTERNAL LAB | | | | + +---------+ + + External Lab: Sodium (01/16/2016) + +-------+ + + + | Component | Value | Ref Range | Performed | Pathologist | | | | | At | Signature | + +-------+ + + + | Sodium, | 137 | 132 - 143 | EXTERNAL | | | External | | | LAB | | + +-------+ + + + + +---------+ + + | Performing | Address | City/State/Zipcode | Phone Number | | Organization | | | | + +---------+ + + | EXTERNAL LAB | | | | + +---------+ + + External Lab: eGFR (01/16/2016) + +--------+ + + + | Component | Value | Ref Range | Performed | Pathologist | | | | | At | Signature | + +--------+ + + + | eGFR, | 31 (A) | 60 99,999 | EXTERNAL | | | External | | | LAB | | + +--------+ + + + + + | Specimen | + + | Blood specimen | | (specimen) | + + + +---------+ + + | Performing | Address | City/State/Zipcode | Phone Number | | Organization | | | | + +---------+ + + | EXTERNAL LAB | | | | + +---------+ + + External Lab: Creatinine (01/16/2016) + + + + + + | Component | Value | Ref Range | Performed | Pathologist | | | | | At | Signature | + + + + + + | Creatinine, | 1.71 (A) | 0.7 - 1.33 | EXTERNAL | | | External | | | LAB | | + + + + + + + + | Specimen | + + | Blood specimen | | (specimen) | + + + +---------+ + + | Performing | Address | City/State/Zipcode | Phone Number | | Organization | | | | + +---------+ + + | EXTERNAL LAB | | | | + +---------+ + + documented in this encounter Visit Diagnoses Not on filedocumented in this encounter"
--- OUTSIDE RECORDS SUMMARY | ~2019-11-29 | XMS | Encounter Summary ---
Demographics + + + | Address | [address] | | | [place] [address] | + + + | Home Phone | | + + + | Preferred Language | Unknown | + + + | Marital Status | | + + + | Anabaptist Affiliation | Unknown | + + + | Race | Unknown | + + + | Ethnic Group | Unknown | + + + Author + + + | Author | [facility] | | | and [place] | + + + | Organization | [facility] | | | and [...] Team Providers + +------+ + | Care Account Receivable Clerk Name | Role | Phone | + +------+ + | Kyle Richey DO | PCP | | + +------+ + Reason for Visit + + + | Reason | Comments | + + + | Post-op Problem | | + + + Encounter Details +--------+ + + + + | Date | Type | Department | Care Team | Description | +--------+ + + + + | 07/28/ | Emergency | [facility] | [place] [facility] | Encounter for | | 2019 | | [facility] | [facility] [address] | postoperative wound | | | | CENTER [address] | [address] [place] | check (Primary Dx) | | | | [place] [address] | [place] [address] | | | | | [address] | [phone] | | | | | [phone] | | | +--------+ + + + [...] + + + | Blood Pressure | 115/57 | 07/28/2018 6:02 PM | | | | | PDT | | + + + + + | Pulse | 73 | 07/28/2018 6:02 PM | | | | | PDT | | + + + + + | Temperature | 36.1 C (97 F) | 07/28/2018 4:40 PM | | | | | PDT | | + + + + + | Respiratory Rate | 16 | 07/28/2018 4:40 PM | | | | | PDT | | + + + + + | Oxygen Saturation | 91% | 07/28/2018 6:02 PM | | | | | PDT | | + + + + + | Inhaled Oxygen | - | - | | | Concentration | | | | + + + + + | Weight | 94.8 kg (209 lb) | 07/28/2018 4:40 PM | | | | | PDT | | + + + + + | Height | 157.5 cm (5' 2") | 07/28/2018 4:40 PM | | | | | PDT | | + + + + + | Body Mass Index | 38.23 | 07/28/2018 4:40 PM | | | | | PDT | | + + + + + documented in this encounter Discharge Instructions Henry Gambino, - 07/28/2018Return for fevers, purulent drainage or significant bleeding from wound. Otherwise follow-up with your [facility]AM [facility]ER [facility]. documented in this encounter Medications at Time of Discharge + + + +---------+ + + | Medication | Sig | Dispensed | Refills | Start | End Date | | | | | | Date | | + + + +---------+ + + | adalimumab (HUMIRA | Inject 0.8 mLs under | | 0 | 09/01/19 | | | PEN) 40 mg/0.8 mL | the skin every 7 | | | 16 | | | injection (pen) | days. | | | | | + + + +---------+ + + | aspirin 81 MG | Take 81 mg by mouth | | 0 | | | | tablet | Daily. | | | | | + + + +---------+ + + | atorvaSTATin | Take 1 tablet by | 90 | 3 | 08/08/19 | | | (LIPITOR) 80 MG | mouth nightly. | tablet | | 18 | | | tablet | | | | | | + + + +---------+ + + | lisinopril | Take 1 tablet by | 90 | 3 | 08/08/19 | | | (PRINIVIL, ZESTRIL) | mouth Daily. | tablet | | 18 | | | 10 mg tablet | | | | | | + + + +---------+ + + | dulaglutide | Inject 1.5 mg under | | 0 | | | | (TRULICITY) 1.5 | the skin Once a | | | | 0 | | mg/0.5 mL injection | week. | | | | | + + + +---------+ + + | ferrous sulfate | Take 325 mg by mouth | | 0 | | | | 325 mg tablet | daily (with | | | | 0 | | | breakfast). | | | | | + + + +---------+ + + | fluticasone | Inhale 2 puffs into | | 0 | | | | (FLOVENT HFA) 220 | the lungs 2 times | | | | 0 | | mcg/puff inhaler | daily. | | | | | + + + +---------+ + + | insulin degludec | Inject 25 Units | | 0 | 06/24/19 | | | (TRESIBA FLEXTOUCH) | under the skin every | | | 17 | 0 | | 100 units/mL | morning. | | | | | | injection | | | | | | + + + +---------+ + + | isosorbide | Take 1 tablet by | 90 | 3 | 08/08/19 | | | mononitrate (IMDUR) | mouth Daily. | tablet | | 18 | 0 | | 30 mg ER tablet | | | | | | + + + +---------+ + + | lidocaine | Place 1 patch onto | | 0 | 02/25/20 | | | (LIDODERM) 5% patch | the skin. | | | 18 | 0 | + + + +---------+ + + | metoprolol | Take 1 tablet by | 180 | 3 | 08/08/19 | | | tartrate (LOPRESSOR) | mouth 2 times daily. | tablet | | 18 | 0 | | 50 mg tablet | | | | | | + + + +---------+ + + | nitroglycerin | Take one tablet | 90 | 3 | 08/08/19 | | | (NITROSTAT) 0.4 mg | under tongue as | tablet | | 18 | 0 | | SL tablet | needed for chest | | | | | | | pain, may repeat | | | | | | | every 5 minutes up | | | | | | | to 3 doses. If no | | | | | | | relief after 3rd | | | | | | | dose, call [phone] | | | | | + + + +---------+ + + | oxyCODONE | Take 5 mg by mouth | | 0 | | | | (ROXICODONE) 5 mg | every 4 hours as | | | | 0 | | tablet | needed for Pain. | | | | | + + + +---------+ + + | sulfaSALAzine | Take 1,000 mg by | | 0 | | | | (AZULFIDINE) 500 mg | mouth 2 times daily. | | | | 0 | | tablet | | | | | | + + + +---------+ + + documented as of this encounter ED Notes Henry Romo DO - 08/03/2018 2:25 PM PDTFormatting of this note might be differ ent from the original. [facility] Jessie Casarez Emergency Department Encounter Note [address] [place] [id number] PCP:Kyle Richey DO [phone] History CC: Post-op Problem HPI: Jessie Casarez is a 53 y.o. female who presents to the ED for evaluation of postopera tive bleeding. Patient reports that she had an abdominal hysterectomy recently, and has bee n recovering uneventfully, however after discharge home she has noticed she has bled through the bandage she was given, and another bandage. They deny having any purulent or foul-smel ling discharge, she denies any significant pain, fevers or chills. She has no other complai nts at this time. 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, + for TB, treated with DOT through [facility] Extrapulmonary tuberculosis Hypertension Internal hemorrhoid Leukocytosis VT (myocardial infarction) ([facility]) 11/2012 Obesity Pleural effusion 10/2011, 11/2011 secondary to RA?, negative for TB Pleural effusion RA (rheumatoid arthritis) ([facility]) 2001 RA (rheumatoid arthritis) ([facility]) Sleep apnea 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 Thyroid nodule Tubal PSH: Past Surgical History: Procedure Laterality Date CARDIAC CATHERIZATION N/A 11/21/2015 Procedure: CV LHC; Surgeon: Marissa Rouse MD; Location: [facility] CV LAB CARDIAC CATHERIZATION N/A 11/23/2015 Procedure: CV Cor Angio; Surgeon: Irvin Bell MD; Location: [facility] CV LAB CARDIAC CATHERIZATION N/A 03/25/2016 Procedure: CV LHC; Surgeon: Marissa Rouse MD; Location: [facility] CV LAB CARDIAC CATHERIZATION N/A 03/25/2016 Procedure: CV RHC; Surgeon: Marissa Rouse MD; Location: [facility] CV LAB CHOLECYSTECTOMY COLONOSCOPY 09/04/2015 CORONARY ANGIOPLASTY WITH STENT PLACEMENT 11/2012 Left Circumflex BMS x [address] [facility] SALPINGECTOMY Left 1990s for ectopic THORACENTESIS 11/09/2011, 12/09/2011, 01/2012 TONSILLECTOMY childhood Medications: Discharge Medication List as of 07/28/2018 17:55 CONTINUE these medications which have NOT CHANGED Details adalimumab (HUMIRA PEN) 40 mg/0.8 mL injection (pen) Inject 0.8 mLs under the skin every 7 days.Historical Med aspirin 81 MG tablet Take 81 mg by mouth Daily.Historical Med atorvaSTATin (LIPITOR) 80 MG tablet Take 1 tablet by mouth nightly.Disp-90 tablet, R-3, Nor mal dulaglutide (TRULICITY) 1.5 mg/0.5 mL injection Inject 1.5 mg under the skin Once a week.Hi storical Med ferrous sulfate 325 mg tablet Take 325 mg by mouth daily (with breakfast).Historical Med fluticasone (FLOVENT HFA) 220 mcg/puff inhaler Inhale 2 puffs into the lungs 2 times daily. Historical Med insulin degludec (TRESIBA FLEXTOUCH) 100 units/mL injection Inject 25 Units under the skin every morning.Historical Med isosorbide mononitrate (IMDUR) 30 mg ER tablet Take 1 tablet by mouth Daily.Disp-90 tablet, R-3, Normal lisinopril (PRINIVIL, ZESTRIL) 10 mg tablet Take 1 tablet by mouth Daily.Disp-90 tablet, R- 3, Normal metoprolol tartrate (LOPRESSOR) 50 mg tablet Take 1 tablet by mouth 2 times daily.Disp-180 tablet, R-3, Normal nitroglycerin (NITROSTAT) 0.4 mg SL tablet Take one tablet under tongue as needed for chest pain, may repeat every 5 minutes up to 3 doses. If no relief after 3rd dose, call 911Disp- 90 tablet, R-3, Normal oxyCODONE (ROXICODONE) 5 mg tablet Take 5 mg by mouth every 4 hours as needed for Pain.Hist orical Med sulfaSALAzine (AZULFIDINE) 500 mg tablet Take 1,000 mg by mouth 2 times daily.Historical Me d Allergies: She is allergic to albuterol; metformin; and clopidogrel.. Social History: She reports that she quit smoking about 6 years ago. Her smoking use inclu ded Cigarettes. She started smoking about 36 years ago. She has never used smokeless tobacco . She reports that she does not drink alcohol or use drugs.. Review of Systems Constitutional: Negative for chills and fever. HENT: Negative for congestion. Eyes: Negative for visual disturbance. Respiratory: Negative for shortness of breath. Cardiovascular: Negative for chest pain and leg swelling. Gastrointestinal: Negative for abdominal pain, diarrhea, nausea and vomiting. Genitourinary: Negative for dysuria and hematuria. Musculoskeletal: Negative for arthralgias and myalgias. Skin: Positive for wound. Negative for rash. Neurological: Negative for weakness. Psychiatric/Behavioral: Negative for behavioral problems. Physical Exam Vital Signs: Temp: 36.1 C (97 F) Pulse: 77 Resp: 16 BP: 124/72 SpO2: 96 % Physical Exam Constitutional: She is oriented to person, place, and time. She appears well-developed and well-nourished. No distress. HENT: Head: Normocephalic and atraumatic. Nose: Nose normal. Eyes: Pupils are equal, round, and reactive to light. EOM are normal. Neck: Normal range of motion. Neck supple. Cardiovascular: Normal rate, regular rhythm and intact distal pulses. No murmur heard. Pulmonary/Chest: Effort normal and breath sounds normal. No respiratory distress. Abdominal: Soft. She exhibits no distension. There is tenderness. There is no rebound and n o guarding. Midline vertical incision, with hakan intact, no signs of infection, there is no active b leeding or drainage, patient has some mild tenderness to palpation, but no more than I would expect from a typical postoperative discomfort. Musculoskeletal: Normal range of motion. She exhibits no edema or deformity. Neurological: She is alert and oriented to person, place, and time. No cranial nerve defici t. Skin: Skin is warm and dry. No rash noted. Psychiatric: She has a normal mood and affect. Her behavior is normal. Nursing note and vitals reviewed. ED Course and Medical Decision Making Jessie Casarez presented to the Emergency Department for evaluation, and she was triaged t o room ED11. I reviewed the nursing notes, and she was evaluated by me. IMPRESSION 1. Encounter for postoperative wound check Patient is afebrile, nontoxic, and in no acute distress. Her incision is clean, dry and in tact, hakan are still in place, there was some serous drainage noted on the bandage, but n o active bleeding and no foul-smelling or purulent drainage noted. Patient has stable vital signs and has no indication that she has been bleeding actively. I discussed the patient's wound with the CREAM MAKER who performed the procedure, he recommended that she follow-up at her next wound check in the clinic, unless she has some other issues, in which case she should call and follow-up sooner. Patient was given a new bandage and reassurance. She was discha rged with verbal and written instructions regarding her care. She was discharged in stable condition. Henry Romo DO 08/03/18 1429 ored, Danielle Bhat RN - 07/28/2018 4:40 PM PDTPatient presenting to ED with chief complaint of increased ble eding and drainage from incision. Patient is five days post-op from hysterectomy.Electronica lly signed by Danielle Goodson RN at 07/28/2018 4:40 PM PDTdocumented in this encounter Plan of Treatment Not on filedocumented as of this encounter Visit Diagnoses + + | Diagnosis | + + | Encounter for postoperative wound check - Primary Other specified aftercare following | | surgery | + + documented in this encounter Administered Medications + +--------+ +------+------+ + | Medication Order | MAR | Action | Dose | Rate | Site | | | Action | Date | | | | + +--------+ +------+------+ + | morphine injection 4 mg 4 mg, | Given | 07/29/19 | 4 mg | | Deltoid- | | Intramuscular, ONCE, [place] 07/28/18 | | 19 5:30 | | | Right | | at 1705, For 1 dose | | PM PDT | | | | + +--------+ +------+------+ + +---+---+ | | | +---+---+ documented in this encounter
--- OUTSIDE RECORDS SUMMARY | ~2019-11-29 | XMS | Encounter Summary ---
Demographics + + + | Address | [address] | | | [place] [address] | + + + | Home Phone | | + + + | Preferred Language | Unknown | + + + | Marital Status | | + + + | Taoism Affiliation | Unknown | + + + | Race | Unknown | + + + | Ethnic Group | Unknown | + + + Author + + + | Author | [facility] | | | and [place] | + + + | Organization | [facility] | | | [...] Team Providers + +------+ + | Care Sizer Machine Name | Role | Phone | + +------+ + | Kyle Richey DO | PCP | | + +------+ + Reason for Visit + +--------+ + | Reason | Onset | Comments | | | Date | | + +--------+ + | Appointment | 11/01/ | | | | 2017 | | + +--------+ + Encounter Details +--------+ + + + + | Date | Type | Department | Care Team | Description | +--------+ + + + + | 11/01/ | Telephone | [facility] | Marissa Rouse, | Appointment | | 2017 | | CARDIOLOGY [address] [place] | | | | | [place], | [place], | | | | | [place] [address] | [place] [address] | | | | | [phone] | [phone] | | | | | | | [...] + + documented as of this encounter Miscellaneous Notes Telephone Encounter - Louise Nelson - 11/01/2016 4:07 PM PDTPatient called back to res chedule appointment. el ephone Encounter - Perla Ramirez - 11/01/2016 12:59 PM PDTPatient's appointment with Dr. Beavers on 11-11-16 needs to be rescheduled as Dr. Beavers will be out of the office. Called bal tejeda, katie [facility] with request for a return call to reschedule. documented in this encounter Plan of Treatment Not on filedocumented as of this encounter Visit Diagnoses Not on filedocumented in this encounter"
--- OUTSIDE RECORDS SUMMARY | ~2019-11-29 | XMS | Encounter Summary ---
Demographics + + + | Address | [address] | | | [place] [address] | + + + | Home Phone | | + + + | Preferred Language | Unknown | + + + | Marital Status | | + + + | Muslim Affiliation | Unknown | + + + | Race | Unknown | + + + | Ethnic Group | Unknown | + + + Author + + + | Author | [facility] | | | and [place] | + + + | Organization | [facility] | | | [...] Providers + +------+ + | Care Account Service Associate Name | Role | Phone | + +------+ + | Kyle Richey DO | PCP | | + +------+ + Encounter Details +--------+ + + + + | Date | Type | Department | Care Team | Description | +--------+ + + + + | 03/28/ | Hospital | [facility] | Conversion | Diagnosis unknown | | 2016 | Encounter | CONVERSION [address] | Transaction, | | | | | [address] | Provider Unknown | | | | | [place], [place] | [phone] | | | | | [address] | | | | | | [phone] | | | +--------+ + + + [...] + + documented as of this encounter Medications at Time of Discharge [...] + + + +---------+ + + | ANUCORT-HC 25 MG | Insert 1 suppository | | 0 | 07/27/19 | | | suppository | every 4-6 hours as | | | 16 | 7 | | | needed | | | | | + + + +---------+ + + | aspirin 81 mg | Take 81 mg by mouth | | 0 | 11/17/19 | | | chewable tablet | Daily. | | | 16 | 8 | + + + +---------+ + + | atorvaSTATin | Take 1 tablet by | 30 | 5 | 02/22/20 | | | (LIPITOR) 40 mg | mouth nightly. | tablet | | 16 | 6 | | tablet | | | | | | + + + +---------+ + + | | Take 1 tablet by | 20 | 0 | 11/24/19 | | | HYDROcodone-acetamin | mouth every 4 hours | tablet | | 16 | 7 | | ophen (NORCO) 5-325 | as needed for Pain. | | | | | | mg per tablet | | | | | | + + + +---------+ + + | isosorbide | Take 0.5 tablets by | 30 | 3 | 03/12/20 | | | mononitrate (IMDUR) | mouth Daily. | tablet | | 16 | 6 | | 30 mg ER tablet | | | | | | + + + +---------+ + + | metFORMIN | Take one tablet | | 0 | 07/20/19 | | | (GLUCOPHAGE) 500 mg | twice daily | | | 16 | 6 | | tablet | | | | | | + + + +---------+ + + | metoprolol | Take 1 tablet by | 60 | 0 | 11/24/19 | | | tartrate (LOPRESSOR) | mouth 2 times daily. | tablet | | 16 | 7 | | 50 mg tablet | | | | | | + + + +---------+ + + | nitroglycerin | Take one tablet | 25 | 11 | 12/07/19 | | | (NITROSTAT) 0.4 mg | under tongue as | tablet | | 16 | 7 | | SL tablet | needed for [...] + + + +---------+ + + | prasugrel | Take 1 tablet by | 90 | 3 | 01/18/20 | | | (EFFIENT) 10 mg TABS | mouth Daily. | tablet | | 16 | 7 | + + + +---------+ + + | tiotropium | Inhale 1 capsule | 90 | 3 | 10/05/19 | | | (SPIRIVA) 18 mcg | into the lungs | capsule | | 16 | 8 | | inhalation capsule | Daily. | | | | | + + + +---------+ + + documented as of this encounter Plan of Treatment Not on filedocumented as of this encounter Procedures + +--------+ + + + | Procedure Name | Priori | Date/Time | Associated Diagnosis | Comments | | | ty | | | | + +--------+ + + + | NM MYOCARDIAL | Routin | 03/08/2016 | | Results for this | | PERFUSION MULT SPECT | e | 12:43 PM | | procedure are in the | | | | PDT | | results section. | + +--------+ + + + documented in this encounter Results NM Myocardial Perfusion Mult SPECT (03/08/2016 12:43 PM PDT) + + | Specimen | + + | | + + + + + | Narrative | Performed At | + + + | This is a non-reportable procedure without a radiologist report and | | | is used for image storage only | | + + + + + | Procedure Note | + + | Jayme Kelly - 12/24/2018 8:58 PM PDT This is a non-reportable procedure | | without a radiologist report and isused for image storage only | + + documented in this encounter Visit Diagnoses + + | Diagnosis | + + | Diagnosis unknown Other unknown and unspecified cause of morbidity or mortality | + + documented in this encounter"
--- OUTSIDE RECORDS SUMMARY | ~2019-11-29 | XMS | Encounter Summary ---
Demographics + + + | Address | [address] | | | [place] [address] | + + + | Home Phone | | + + + | Preferred Language | Unknown | + + + | Marital Status | | + + + | Jehovah'S Witness Affiliation | Unknown | + + + | Race | Unknown | + + + | Ethnic Group | Unknown | + + + Author + + + | Author | [facility] | | | and [place] | + + + | Organization | [facility] | | | [...] Team Providers + +------+ + | Care Search Coordinator Name | Role | Phone | + +------+ + PCP | Unavailable | + +------+ + Encounter Details +--------+ + + + + | Date | Type | Department | Care Team | Description | +--------+ + + + + | 01/22/ | Hospital | [facility] | Porfirio Salguero, | Pleural effusion; TB | | 2011 - | Encounter | [facility] | MD [address] | (pulmonary | | | | CARE FLOOR [address] | tuberculosis); TB | | [address] | | [address] | [place] [address] | (tuberculosis); | | 2011 | | [place], [place] | [phone] | Sepsis (HCC); | | | | [address] | | Anemia; ARF (acute | | | | [phone] | | renal failure) | | | | | | (HCC); Hypoxia; PNA | | | | | | (pneumonia); | | | | | | Rheumatoid arthritis | | | | | | ([facility]); SOB | | | | | | (shortness of | | | | | | breath) | +--------+ + + + + Social [...] documented as of this encounter Discharge Summaries Jose Luis Lorenz MD - 01/25/2012 10:58 AM PDT Discharge Summaries by Jose Luis Lorenz MD at 01/25/12 1058 Author: Jose Luis Lorenz MD Service: Hospitalist Author Type: Physician Filed: 01/25/12 1302 Date of Service: 01/25/12 1058 Status: Addendum Residential Tech: Jose Luis Lorenz MD (Physician) Related Notes: Original Note by Jose Luis Lorenz MD (Physician) filed at 01/25/12 1119 [facility] Service: Hospitalist Physician Discharge Summary Pt: Jessie Gutiérrez AGE/SEX: 47 y.o. female ROOM: [address] [place] [address] PCP: NATTY STEEN DO, : 1965 Admit date: 01/23/2012 Discharge date and time: 01/25/2012 10:58 AM Admitting Physician: Kaveh Salguero MD Discharge Physician: Jose Luis Lorenz MD Consults: Dr. sigala Primary Discharge Diagnoses: Rheumatoid arthritis [714.0] Sepsis [995.91] ARF (acute renal failure) [584.9] SOB (shortness of breath) [786.05] Anemia [285.9] Pleural effusion [511.9] TB (tuberculosis) [011.90] TB (pulmonary tuberculosis) [011.90] Hypoxia [799.02] PNA (pneumonia) [486] Secondary Discharge Diagnoses: TB Discharged Condition: stable Significant Diagnostic Studies: CT Chest Conclusions: 1. 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 No left pleural effusion noted. 2. Mild, focal pleural thickening in the left chest, likewise probably a residual of prior right pleural effusion. No active right pleural effusion identified. 3. Mild, stable reactive mediastinal adenopathy, unchanged. 4. Mild subsegmental atelectasis in both lower lung montano. 5. Prior cholecystectomy. 6. The remainder of the examination is unremarkable. CXR Pleural thickening in the left lateral cost phrenic sulcus suggesting pleural reaction, wit h adjacent atelectasis. No definable infiltrates presently. HPI and Hospital Course: The patient is a 47 y.o. female with significant past medical history of Rheumatoid arthrit is and recent diagnosis with TB (pleural effusion) and currently on HRZE twice a week transf erred from [facility] for evaluation of cough, shortness of breath could be relate d to viral infection. I doubt it is PNA Plan is to discharge home with azithromycin and prednisone Note sent from [facility] and the doses changed to reflect her recc regimen no w as: rifampin 600 mg po daily, INH 300 mg po daily, PZA 1500 mg po daily, and B6 listed as 25 mg (no frequency stated so made daily). also will check LFT per their recc Had no CP, SOB, N/V, Diarrhea, Abdominal pain or ORTEGA. No constipation or change in bowel hab its. No orthopnea or PND. Appetite is good without abdominal bloating. No cough or fever. No dizziness, lightheadedness or any symptoms suggestive of stroke. Discharge Vitals: Filed Vitals: 01/24/12200301/24/12 2332 01/25/12 0455 01/25/12 0736 BP: 134/70 123/60 115/66 141/72 Pulse: 102 92 87 90 Temp: 99.1 F (37.3 C) 98.5 F (36.9 C) 98.5 F (36.9 C) 99 F (37.2 C) TempSrc: Oral Oral Oral Oral Resp: 24 20 20 18 Height: Weight: 85.2 kg (187 lb 13.3 oz) SpO2: 99% 97% 98% 98% Discharge Exam: Constitutional: Alert and oriented to person, place, and time. Appears well-developed and w ell-nourished. Cardiovascular: Normal rate, regular rhythm, normal heart sounds with S1 and S2 and intact distal pulses. Exam reveals no gallop and no friction rub. No murmur heard. Pulmonary/Chest: Effort normal and breath sounds normal. No stridor. No respiratory distres s. no wheezes. no rales. exhibits no tenderness. Abdominal: Soft. Bowel sounds are normal. exhibits no distension and no mass. There is no t enderness. There is no rebound and no guarding. Musculoskeletal: Normal range of motion.exhibits no tenderness. exhibits no edema. Neurological: Alert and oriented to person, place, and time. Has normal reflexes. display s normal reflexes. No cranial nerve deficit. Exhibits normal muscle tone. Coordination norm al. Skin: Skin is warm and dry. No rash noted. No erythema. No pallor. Psychiatric: Has a normal mood and affect. Behavior is normal. Judgment normal. LABS: Lab 01/25/1251901/24/1251101/23/12 1509 WBC 10.2 13.7* 18.3* HGB 8.6* 8.5* 9.7* HCT 27.4* 26.7* 30.0* PLT 266 264 303 NEUTOPHILPCT 70.7 81.1* 79.2* MONOPCT 7.1 8.1 9.0 Lab 01/25/12 0501/24/12 0501/23/12 1509 NA 141 141 135 K 4.3 4.4 3.9 CL 115* 111* 106 CO2 16* 17* 18* BUN 23 23 21 CREATININE 1.77* 2.10* 2.09* CALCIUM -- -- -- PROT 7.4 -- 8.1 BILITOT 0.2 -- 0.3 ALKPHOS -- -- -- ALT 12 -- 15 AST 8* -- 14 GLUCOSE -- -- -- Phosphorus: Lab Results Component Value Date PHOS 4.0 01/24/2012 PHOS 4.0 01/24/2012 Lab 01/24/12 05 MG 2.0 Lab 01/23/12 1509 TSH 0.80 T3FREE -- FREET4 1.2 Disposition: Home or Self Care Patient Instructions: Current Discharge Medication List START taking these medications Details albuterol (PROVENTIL HFA;VENTOLIN HFA) 108 (90 BASE) MCG/ACT inhaler Inhale 2 puffs into th e lungs every 6 (six) hours as needed for Wheezing. Qty: 4 Inhaler, Refills: 0 azithromycin (ZITHROMAX) 500 MG tablet Take 1 tablet by mouth daily. Qty: 4 tablet, Refills: 0 ondansetron (ZOFRAN) 4 MG tablet Take 1 tablet by mouth every 8 (eight) hours as needed for Nausea. Qty: 30 tablet, Refills: 0 predniSONE (DELTASONE) 20 MG tablet Take 3 tablets by mouth daily. Qty: 30 tablet, Refills: 0 CONTINUE these medications which have CHANGED Details isoniazid (NYDRAZID) 300 MG tablet Take 1 tablet by mouth daily. Qty: 30 tablet, Refills: 0 pyrazinamide 500 MG tablet Take 3 tablets by mouth daily. Qty: 90 tablet, Refills: 0 pyridoxine (B-6) 25 MG tablet Take 1 tablet by mouth daily. Qty: 30 tablet, Refills: 1 rifampin (RIFADIN) 300 MG capsule Take 2 capsules by mouth daily. Qty: 60 capsule, Refills: 1 CONTINUE these medications which have NOT CHANGED Details ethambutol (MYAMBUTOL) 400 MG tablet Take 4,000 mg by mouth twice a week. 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 hydroxychloroquine (PLAQUENIL) 200 MG tablet Take by mouth daily. !! hydroxychloroquine (PLAQUENIL) 200 MG tablet Take 400 mg by mouth daily. !! - Potential duplicate medications found. Please discuss with provider. Activity: activity as tolerated Diet: renal diet Wound Care: not applicable There are no Patient Instructions on file for this visit. Follow-up with PCP [address] Sigala 2 week Discharge took more than 35 minutes, to include final examination, discussion of admission, and preparation of prescriptions, instructions for ongoing care, follow up and dictation of summary. Signed: JOSE LUIS LORENZ MD, FACP 01/25/2012 10:58 AM documented in this enc ounter Progress Notes Conversion Transaction, Provider Unknown - 01/25/2012 1:49 PM PDTFormatting of this note m ight be different from the original. Progress Notes by Jade Moreno RN at 01/25/12 2601 Author: Jade Moreno RN Service: (none) Author Type: Registered Nurse Filed: 01/25/12 1350 Date of Service: 01/25/12 1349 Status: Signed Residential Tech: Jade Moreno RN (Registered Nurse) Patient was given new prescriptions, follow up appointment information, and education on pn eumonia. She did not complain of any pain or nausea prior to discharge. She ambulated out of the facility with significant other here to transport her home. Errol Duran MD - 01/24/2012 5:23 PM PDTFormatting of this note might be different from the or iginal. Progress Notes by Anthony Sigala MD at 01/24/12 1723 Author: Anthony Sigala MD Service: (none) Author Type: Physician Filed: 01/24/12 1732 Date of Service: 01/24/12 172 Status: Signed Residential Tech: Anthony Sigala MD (Physician) [facility] Service: Pulmonology Progress Note Hospital Day: LOS: 1 day Post-Op Day: * No surgery found * SUBJECTIVE Patient Summary: Events Overnight: C/O exertional dyspnea and diarrhea. Scheduled Medications azithromycin 500 mg Intravenous Q24H ceftriaxone 1 g Intravenous Q24H ethambutol 4,000 mg Oral User Specified heparin (porcine) 5,000 Units Subcutaneous Q8H isoniazid 300 mg Oral Daily lip moisturizer predniSONE 40 mg Oral Daily with breakfast pyrazinamide 1,500 mg Oral Daily pyridoxine 25 mg Oral Daily rifampin 600 mg Oral Daily zolpidem 10 mg Oral Nightly DISCONTD: ethambutol 4,000 mg Oral Twice Weekly DISCONTD: isoniazid 900 mg Oral Twice Weekly DISCONTD: isoniazid 900 mg Oral User Specified DISCONTD: methylPREDNISolone 40 mg Intravenous Daily DISCONTD: pneumococcal vaccine 0.5 mL Intramuscular Once DISCONTD: pyrazinamide 4,000 mg Oral Twice Weekly DISCONTD: pyrazinamide 4,000 mg Oral User Specified DISCONTD: pyridoxine 50 mg Oral Daily DISCONTD: rifampin 600 mg Oral Twice Weekly DISCONTD: rifampin 600 mg Oral User Specified Continuous Infusions lactated ringers DISCONTD: sodium chloride 125 mL/hr at 01/24/12 1628 PRN Medications acetaminophen, acetaminophen, albuterol, morphine, morphine, morphine, ondansetron, ondanse sai, polyethylene glycol, promethazine, zolpidem OBJECTIVE Vital Signs: BP 123/58 | Pulse 90 | Temp(Src) 98.4 F (36.9 C) (Oral) | Resp 28 | Ht 1.575 m (5' 2") | Wt 85.276 kg (188 lb) | BMI 34.39 kg/m2 | SpO2 99% | ? No Intake/Output Summary (Last 24 hours) at 01/24/12 1729 Last data filed at 01/24/12 1724 Gross per 24 hour Intake 3675 ml Output 2900 ml Net 775 ml Physical Exam Constitutional: She is oriented to person, place, and time. She appears well-developed and well-nourished. HENT: Head: Normocephalic and atraumatic. Nose: Nose normal. Mouth/Throat: No oropharyngeal exudate. Eyes: Conjunctivae are normal. Pupils are equal, round, and reactive to light. No scleral i cterus. Neck: Normal range of motion. Neck supple. No JVD present. No tracheal deviation present. N o thyromegaly present. Cardiovascular: Normal rate, regular rhythm, normal heart sounds and intact distal pulses. Exam reveals no gallop and no friction rub. No murmur heard. Pulmonary/Chest: Effort normal. No stridor. No respiratory distress. She has no wheezes. Sh e has no rales. She exhibits no tenderness. Decreased breath sound left base. Abdominal: Soft. Bowel sounds are normal. She exhibits no distension and no mass. There is no tenderness. There is no rebound and no guarding. Musculoskeletal: Normal range of motion. She exhibits no edema and no tenderness. Lymphadenopathy: She has no cervical adenopathy. Neurological: She is alert and oriented to person, place, and time. She has normal reflexes . Skin: Skin is warm. No rash noted. No erythema. No pallor. DATA CBC: Lab Results Component Value Date WBC 13.7* 01/24/2012 RBC 3.69* 01/24/2012 HGB 8.5* 01/24/2012 HCT 26.7* 01/24/2012 MCV 72.3* 01/24/2012 MCH 23.1* 01/24/2012 MCHC 31.9* 01/24/2012 RDW 56.4* 01/24/2012 PLT 264 01/24/2012 MPV 9.5 01/24/2012 DIFFTYPE AUTOMATED 01/24/2012 CMP: Lab Results Component Value Date NA 141 01/24/2012 K 4.4 01/24/2012 CL 111* 01/24/2012 CO2 17* 01/24/2012 ANIONGAP 18 01/24/2012 GLUF 160* 01/24/2012 BUN 23 01/24/2012 CREATININE 2.10* 01/24/2012 BCR 10 01/23/2012 CA 7.5* 01/24/2012 PROT 8.1 01/23/2012 ALB 2.9* 01/24/2012 GLOB 4.9 01/23/2012 BILITOT 0.3 01/23/2012 ALP 64 01/23/2012 AST 14 01/23/2012 ALT 15 01/23/2012 EGFR 27* 01/24/2012 CT CHEST WO CONTRAST 01/24/2012 7:55 AM History: 47 years. Female. Acute shortness or breath and hypoxia. Acute renal failure. Ques tion of left pleural effusion. History of pulmonary tuberculosis. During a single breath hold, 1.25 mm thick slices were performed in the axial plane through out the chest. 5 mm thick slices were reconstructed at 5 mm intervals in the axial plane for display. No IV contrast was administered. Findings: Circumferential pleural thickening is noted posteriorly, medially and laterally i n the mid and lower left lung field, measuring 15-20 mm in thickness, having the appearance of pleural fibrosis. Prior CT examination of the chest on 11/15/11 demonstrated a small to m oderate left pleural effusion. There is no obvious free fluid in the left pleural space at p resent. There is some focal areas of pleural thickening in the right lower posterior chest, also st atus post prior right pleural effusion. No pulmonary nodule visualized. Linear densities in both lower lung motnano suggests subsegm ental atelectasis. No lung consolidation visualized. Mildly enlarged multiple mediastinal lymph nodes are noted, primarily in the pretracheal sp gloria, the aorticopulmonary window, the right paratracheal space and the superior mediastinum, with the largest lymph node measuring approximately 16 x 11 mm. This adenopathy was also pr esent on the prior examination, unchanged, probably reactive. The pulmonary obdulio are negativ e for adenopathy. The axillary regions are likewise negative. The cardiac size and contour are normal. No pericardial effusion or coronary calcifications visualized. The caliber of the thoracic aorta and pulmonary arteries is normal. The thyroid gland is normal in size and density, without nodule. Glandular tissue of each breast is uni form and normal. Surgical clips are noted in the gallbladder fossa. The upper abdomen is par tially visualized and appears normal. This is not a complete examination of the abdomen. Min imal osteophytes of the thoracic spine indicate early spondylosis. Bone density is normal. N o focal osteolytic process visualized in the range of the examination. Conclusions: 1. 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 No left pleural effusion noted. 2. Mild, focal pleural thickening in the left chest, likewise probably a residual of prior right pleural effusion. No active right pleural effusion identified. 3. Mild, stable reactive mediastinal adenopathy, unchanged. 4. Mild subsegmental atelectasis in both lower lung montano. 5. Prior cholecystectomy. 6. The remainder of the examination is unremarkable. 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 Diarrhea today Worsening renal insufficiency secondary to dehydration PLAN Consider hydration. Repeat BMP in am. Stool for C diff toxin. D/C solumedrol and change to prednisone. May go home tomorrow on prednisone and I will follow next week as out patient. I will sign off. Code Status: Full Code ANTHONY SIGALA MD 01/24/2012 onn Sevilla MD - 01/24/2012 4:44 PM PDT Progress Notes by Jonn Sevilla MD at 01/24/12 7398 Author: Jonn Sevilla MD Service: (none) Author Type: Physician Filed: 01/24/12 0370 Date of Service: 01/24/12 1916 Status: Signed Residential Tech: Jonn Sevilla MD (Physician) [facility] Service: Hospitalist Progress Note Hospital Day: LOS: 1 day Post-Op Day: * No surgery found * SUBJECTIVE Patient Summary: HISTORY OF PRESENT ILLNESS The patient is a 47 y.o. female with significant past medical history of Rheumatoid arthrit is and recent diagnosis with TB (pleural effusion) and currently on HRZE twice a week transf erred from [facility] for evaluation of cough, shortness of breath. Patient was ho spitalized in [facility] in November with Pleural effusion and this was drained. Results sent for cult ure were positive for TB in December and patient was started on treatment with HRZE. Patient r eports being compliant with treatment (except one dose last week as she had to be at work). Patient states that she has been doing well until about 2 days ago when she developed fever/ chills/cough and shortness of breath. Patient reports that cough is dry and fever has been h igh grade (upto 103 F). Patient reports worsening shortness of breath over the last 2 days a nd went to PCP who sent her to ED. Patient denies chest pain/palpitations/nausea/vomting or diarrhea. Does report pain over wrists and low back pain but this is chronic. Events Overnight: Patient has less resp distress since starting solumedrol. She now has loose stools. Wbc coming down. Ct scan without pneumonia seen. Some dyspnea with ambul ation and pulm recc albuterol mdi prn. Having some nausea as well. Still with metabolic ac idosis. Scheduled Medications azithromycin 500 mg Intravenous Q24H ceftriaxone 1 g Intravenous Q24H ethambutol 4,000 mg Oral User Specified heparin (porcine) 5,000 Units Subcutaneous Q8H isoniazid 900 mg Oral User Specified lip moisturizer methylPREDNISolone 40 mg Intravenous Daily pyrazinamide 4,000 mg Oral User Specified pyridoxine 50 mg Oral Daily rifampin 600 mg Oral User Specified zolpidem 10 mg Oral Nightly DISCONTD: enoxaparin 1 mg/kg Subcutaneous Once DISCONTD: ethambutol 4,000 mg Oral Twice Weekly DISCONTD: isoniazid 900 mg Oral Twice Weekly DISCONTD: pneumococcal vaccine 0.5 mL Intramuscular Once DISCONTD: pyrazinamide 4,000 mg Oral Twice Weekly DISCONTD: rifampin 600 mg Oral Twice Weekly Continuous Infusions sodium chloride 125 mL/hr at 01/24/12 1628 DISCONTD: sodium chloride 150 mL/hr at 01/23/12 1606 PRN Medications acetaminophen, acetaminophen, morphine, morphine, morphine, ondansetron, ondansetron, polye thylene glycol, promethazine, zolpidem, DISCONTD: HYDROmorphone OBJECTIVE Vital Signs: BP 123/58 | Pulse 90 | Temp(Src) 98.4 F (36.9 C) (Oral) | Resp 28 | Ht 1.575 m (5' 2") | Wt 85.276 kg (188 lb) | BMI 34.39 kg/m2 | SpO2 99% | ? No Temp: [97.9 F (36.6 C)-98.9 F (37.2 C)] 98.4 F (36.9 C) (01/23 1514) BP: (104-127)/(54-68) 123/58 mmHg (01/23 1514) Heart Rate: [86-112] 90 (01/23 1514) Resp: [28-40] 28 (01/23 1514) SpO2: [95 %-99 %] 99 % (01/23 1514) Height: [157.5 cm (5' 2")] 157.5 cm (5' 2") (01/22 1705) Weight: [85.276 kg (188 lb)] 85.276 kg (188 lb) (01/22 1705) BMI (Calculated): [34.5] 34.5 (01/22 1705) Patient Vitals for the past 24 hrs: BP Temp Temp src Pulse Resp SpO2 Height Weight 01/24/121513 123/58 mmHg 98.4 F (36.9 C) Oral 90 28 99 % - - 01/24/12 1200 127/68 mmHg 98.9 F (37.2 C) Oral 92 28 99 % - - 01/24/12 0731 122/61 mmHg 98.3 F (36.8 C) Oral 89 32 98 % - - 01/24/12 0326 104/56 mmHg 98.9 F (37.2 C) Oral 86 34 98 % - - 01/24/12 0010 120/56 mmHg 98.7 F (37.1 C) Oral 96 36 98 % - - 01/23/12 1916 107/54 mmHg 97.9 F (36.6 C) Oral 90 32 96 % - - 01/23/12 1705 116/54 mmHg 98.6 F (37 C) Oral 112 40 95 % 1.575 m (5' 2") 85.276 kg (1 88 lb) Temp (24hrs), Av.5 F (36.9 C), Min:97.9 F (36.6 C), Max:98.9 F (37.2 C) Systolic (24hrs), Av mmHg, Min:104 mmHg, Max:127 mmHg Diastolic (24hrs), Av mmHg, Min:54 mmHg, Max:68 mmHg I&O Current Shift: 01/23 700 - 01/23 1859 In: 710 [P.O.:710] Out: 700 [Urine:700] I&O Yesterday: 01/22 700 - 01/23 0659 In: 2165 [P.O.:505; I.V.:1360] Out: 900 [Urine:900] I&O Last 3 Shifts: 01/210 - 01/23 0659 In: 2165 [P.O.:505; I.V.:1360] Out: 900 [Urine:900] Intake/Output Summary (Last 24 hours) at 01/24/12 1651 Last data filed at 01/24/12 1514 Gross per 24 hour Intake 2875 ml Output 1600 ml Net 1275 ml I&O Detailed Table: Physical Exam Nursing note and vitals reviewed. Constitutional: She is oriented to person, place, and time. She appears well-nourished. She appears NAD HENT: Head: Normocephalic and atraumatic. Mouth/Throat: No oropharyngeal exudate. Eyes: EOM are normal. Pupils are equal, round, and reactive to light. No scleral icterus. Neck: Neck supple. No JVD present. Pulmonary/Chest: She is in no resp distress. She has no wheezes. She has no rales. , reduced breath sounds throughout Abdominal: Soft. Bowel sounds are normal. She exhibits no distension. There is no tendernes s. There is no rebound. Musculoskeletal: Normal range of motion. She exhibits no edema. Neurological: She is alert and oriented to person, place, and time. She displays normal ref lexes. No cranial nerve deficit. Coordination normal. Skin: Skin is warm. No erythema. Psychiatric: She has a normal mood and affect. DATA CBC: Lab Results Component Value Date WBC 13.7* 01/24/2012 RBC 3.69* 01/24/2012 HGB 8.5* 01/24/2012 HCT 26.7* 01/24/2012 MCV 72.3* 01/24/2012 MCH 23.1* 01/24/2012 MCHC 31.9* 01/24/2012 RDW 56.4* 01/24/2012 PLT 264 01/24/2012 MPV 9.5 01/24/2012 DIFFTYPE AUTOMATED 01/24/2012 CMP: Lab Results Component Value Date NA 141 01/24/2012 K 4.4 01/24/2012 CL 111* 01/24/2012 CO2 17* 01/24/2012 ANIONGAP 18 01/24/2012 GLUF 160* 01/24/2012 BUN 23 01/24/2012 CREATININE 2.10* 01/24/2012 BCR 10 01/23/2012 CA 7.5* 01/24/2012 PROT 8.1 01/23/2012 ALB 2.9* 01/24/2012 GLOB 4.9 01/23/2012 BILITOT 0.3 01/23/2012 ALP 64 01/23/2012 AST 14 01/23/2012 ALT 15 01/23/2012 EGFR 27* 01/24/2012 Calcium: No results found for this basename: CALCIUM Ionized Calcium: No results found for this basename: ABDULAZIZ, PH, CAION, CANMLX, POCICA Magnesium: Lab Results Component Value Date MG 2.0 01/24/2012 Phosphorus: Lab Results Component Value Date PHOS 4.0 01/24/2012 PHOS 4.0 01/24/2012 LDH: No results found for this basename: LDH Uric Acid: No results found for this basename: URICACID PT/INR: Lab Results Component Value Date INR 1.2 11/14/2011 PTT: Lab Results Component Value Date APTT 35 11/14/2011 [APTT Troponin: No results found for this basename: TROPONINI Last 3 Troponin: No results found for this basename: TROPONINI CPK: No results found for this basename: CKTOTAL CKMB: No results found for this basename: CKMB Troponin I: No results found for this basename: TROPONINI U/A: Lab Results Component Value Date COLORU YELLOW 01/23/2012 CLARITYU HAZY 01/23/2012 MEROPENEM 1.010 01/23/2012 LEUKOCYTESUR NEGATIVE 01/23/2012 NITRITE NEGATIVE 01/23/2012 UROBILINOGEN 0.2 01/23/2012 PHUR 6.0 01/23/2012 BLOODU SMALL* 01/23/2012 KETONES NEGATIVE 01/23/2012 BILIRUBINUR NEGATIVE 01/23/2012 GLUCOSEU NEGATIVE 01/23/2012 ABG: Lab Results Component Value Date POCPH 7.375 01/23/2012 POCPCO 26* 01/23/2012 POCPO2 76* 01/23/2012 POCHCO 15* 01/23/2012 POCTCO2 16* 01/23/2012 POCBD 10* 01/23/2012 POCSO2 95 01/23/2012 HgBA1c: No results found for this basename: HGBA1C, LABGLYC Microalbumen/Creatinine ratio: No results found for this basename: MALBRX, LABCREAU, LABMICR TSH: Lab Results Component Value Date TSH 0.80 01/23/2012 Amylase: No results found for this basename: AMYLASE Lipase: Lab Results Component Value Date LIPASE 162 11/14/2011 Procedure Component Value Units Date/Time CT chest without contrast [[id number]] Collected:01/24/12828 Order Status:Completed Updated:01/24/12 0844 Narrative: JESSIE GUTIÉRREZ CT CHEST WO CONTRAST 01/24/2012 7:55 AM History: 47 years. Female. Acute shortness or breath and hypoxia. Acute renal failure. Q uestion of left pleural effusion. History of pulmonary tuberculosis. During a single breath hold, 1.25 mm thick slices were performed in the axial plane through out the chest. 5 mm thick slices were reconstructed at 5 mm intervals in the axial plane fo r display. No IV contrast was administered. Findings: Circumferential pleural thickening is noted posteriorly, medially and laterally in the mid and lower left lung field, measuring 15-20 mm in thickness, having the appearance of pleural fibrosis. Prior CT examination of the chest on 11/15/11 demonstrated a small to moderate left pleural effusion. There is no obvious free fluid in the left pleural space at present. There is some focal areas of pleural thickening in the right lower posterior chest, also st atus post prior right pleural effusion. No pulmonary nodule visualized. Linear densities in both lower lung montano suggests subsegm ental atelectasis. No lung consolidation visualized. Mildly enlarged multiple mediastinal lymph nodes are noted, primarily in the pretracheal sp gloria, the aorticopulmonary window, the right paratracheal space and the superior mediastinum, with the largest lymph node measuring approximately 16 x 11 mm. This adenopathy was also pr esent on the prior examination, unchanged, probably reactive. The pulmonary obdulio are negativ e for adenopathy. The axillary regions are likewise negative. The cardiac size and contour are normal. No pericardial effusion or coronary calcification s visualized. The caliber of the thoracic aorta and pulmonary arteries is normal. The thyroi d gland is normal in size and density, without nodule. Glandular tissue of each breast is un iform and normal. Surgical clips are noted in the gallbladder fossa. The upper abdomen is pa rtially visualized and appears normal. This is not a complete examination of the abdomen. Mi nimal osteophytes of the thoracic spine indicate early spondylosis. Bone density is normal. No focal osteolytic process visualized in the range of the examination. Conclusions: 1. 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 No left pleura l effusion noted. 2. Mild, focal pleural thickening in the left chest, likewise probably a residual of prior right pleural effusion. No active right pleural effusion identified. 3. Mild, stable reactive mediastinal adenopathy, unchanged. 4. Mild subsegmental atelectasis in both lower lung montano. 5. Prior cholecystectomy. 6. The remainder of the examination is unremarkable. Chest AP portable [[id number]] Collected:01/23/12 1601 Order Status:Completed Updated:01/23/12 1608 Narrative: HISTORY: Shortness of breath. A single frontal view of the chest. COMPARISON: 11/16/11, 11/14/11. FINDINGS: AP portable upright, the chest at 1440 hrs demonstrates pleural thickening in the lateral l eft costophrenic sulcus, slightly more prominent. Strandy changes in the lateral left lung base consistent with atelectasis. Right lung is clear. The heart size is normal. Improved aeration. IMPRESSION: 1. Pleural thickening in the left lateral cost phrenic sulcus suggesting pleural reaction, with adjacent atelectasis. No definable infiltrates presently. LEM LIST Principal Problem: *PNA (pneumonia) Active Problems: SOB (shortness of breath) Hypoxia Anemia ARF (acute renal failure) TB (pulmonary tuberculosis) Rheumatoid arthritis Metabolic acidosis ASSESSMENT & PLAN 1)PNA (pneumonia) (01/23/2012) Assessment: no evidence of PNA on x ray or CT scan. . Plan: will however continue with treatment for CAP given high fever, cough and leucocytos is. pulmonary is seeing her. Cough/fever may also represent a non-infectious etiology such as rheumatoid or stills disease. Patients shortness of breath could partly be attributed to acidosis which is primarily metabolic. She is less dyspneic on the solumedrol presently. Aw ait pulmonary eval tonight. 2)Rheumatoid arthritis (01/23/2012) Plan: on plaquenil. Will continue 3) ARF (acute renal failure)/ metabolic acidosis (11/16/2011) Assessment: etiology of patients renal failure is not clear. She did have renal failure d uring the previous hospitalization as well. ?NSAID use 2/2 rheumatoid. Lab 01/24/12 0512 01/23/12 1509 NA 141 135 K 4.4 3.9 CL 111* 106 CO2 17* 18* BUN 23 21 CREATININE 2.10* 2.09* LABGLOM -- -- GLUCOSE -- -- CALCIUM -- -- . Continue iv fluids I will change to LR to see if the acidosis improves as this is hyperch loremic and on saline 4)SOB (shortness of breath) (11/14/2011) Assessment: now saturating well on 2 lts. Improving with solumedrol 5)Anemia (11/16/2011) Assessment: ?2/2 chronic disease as well as iron deficiency. I suspect the drop overnigh t was hemodilution Plan: monitor. Lab 01/24/12 0512 01/23/12 1509 WBC 13.7* 18.3* HGB 8.5* 9.7* HCT 26.7* 30.0* PLT 264 303 5.5) diarrhea: started in last 1-2 days. Will check c diff 6)TB (pulmonary tuberculosis) (01/23/2012) Plan: note sent from [facility] and the doses changed to reflect her recc re gimen now as: rifampin 600 mg po daily, INH 300 mg po daily, PZA 1500 mg po daily, and B6 li sted as 25 mg (no frequency stated so made daily). also will check LFT per their recc. Disposition: Per discussion with dr sigala pt potentially would be able to go tomorrow from a pulmonary perspective if doing well on the prednisone Code Status: Full Code JONN SEVILLA MD 01/24/2012 onversion Transac tion, Provider Unknown - 01/23/2012 3:37 PM PDTFormatting of this note might be different f rom the original. Progress Notes by Naye Yu at 01/23/12 1537 Author: Naye Yu Service: (none) Author Type: Registered Respiratory Therapist Filed: 01/23/12 1538 Date of Service: 01/23/12 1537 Status: Signed Residential Tech: Naye Yu Patient currently on RA with SATS of 98%. docume nted in this encounter H&P Notes Kaveh Patel MD - 01/23/2012 4:30 PM PDTFormatting of this note might be differ ent from the original. H&P by Kaveh Salguero MD at 01/23/12 1630 Author: Kaveh Salguero MD Service: (none) Author Type: Physician Filed: 01/23/122111 Date of Service: 01/23/121629 Status: Signed Residential Tech: Kaveh Salgureo MD (Physician) [facility] Service: Hospitalist Admission History & Physical Date of Admission: 01/23/2012 Requesting Physician: Dr Ansari, Emergency Department Reason for Admission: PNA History Obtained From: patient CHIEF COMPLAINT: Cough, shortness of breath, fever HISTORY OF PRESENT ILLNESS The patient is a 47 y.o. female with significant past medical history of Rheumatoid arthrit is and recent diagnosis with TB (pleural effusion) and currently on HRZE twice a week transf erred from [facility] for evaluation of cough, shortness of breath. Patient was ho spitalized in [facility] in November with Pleural effusion and this was drained. Results sent for cult ure were positive for TB in December and patient was started on treatment with HRZE. Patient r eports being compliant with treatment (except one dose last week as she had to be at work). Patient states that she has been doing well until about 2 days ago when she developed fever/ chills/cough and shortness of breath. Patient reports that cough is dry and fever has been h igh grade (upto 103 F). Patient reports worsening shortness of breath over the last 2 days a nd went to PCP who sent her to ED. Patient denies chest pain/palpitations/nausea/vomting or diarrhea. Does report pain over wrists and low back pain but this is chronic. REVIEW OF SYSTEMS Review of Systems Constitutional: Positive for fever, chills, diaphoresis and appetite change. Respiratory: Positive for cough and shortness of breath. Cardiovascular: Negative. Gastrointestinal: Negative. Genitourinary: Negative. Musculoskeletal: Negative. Skin: Negative. Neurological: Negative. Hematological: Negative. Psychiatric/Behavioral: Negative. Past Medical History Diagnosis Date Rheumatoid arthritis Past Surgical History Procedure Date Gall stone removal Tumor removal Neck Tonsillectomy Cholecystectomy Prior to Admission medications Medication Sig Start Date End Date Taking? Authorizing Provider ethambutol (MYAMBUTOL) 400 MG tablet Take 4,000 mg by mouth twice a week. On Friday and Indications: Infection caused by Mycobacteria Yes Historical Provider hydroxychloroquine (PLAQUENIL) 200 MG tablet Take by mouth daily. Yes Historical Provide r hydroxychloroquine (PLAQUENIL) 200 MG tablet Take 400 mg by mouth daily. Yes Historical Provider isoniazid (NYDRAZID) 300 MG tablet Take 900 mg by mouth twice a week. On Friday and Friday Yes Historical Provider pyrazinamide 500 MG tablet Take 4,000 mg by mouth twice a week. Friday and Friday Yes H istorical Provider pyridoxine (B-6) 100 MG tablet Take 50 mg by mouth daily. Yes Historical Provider pyridoxine (B-6) 100 MG tablet Take 100 mg by mouth twice a week. Yes Historical Provid er rifampin (RIFADIN) 300 MG capsule Take 600 mg by mouth twice a week. On Friday and friday Yes Historical Provider No Known Allergies (Not in a hospital admission) Family History Problem Relation Age of Onset Diabetes type II Mother High cholesterol Father Diabetes type II Father History Social History Marital Status: Spouse Name: [...] Narrative Lives [facility] her boyfrienRosa [facility] quit 2 months 1/2 ppd for 15 yearsetoh very occasionallyDrugs noneFather might have kidney problemsMother lives [place]2 PHYSICAL EXAM Vital Signs: BP 133/65 | Pulse 101 | Temp(Src) 101.2 F (38.4 C) (Oral) | Resp 24 | Ht 1.575 m (5' 2" ) | Wt 85.276 kg (188 lb) | BMI 34.39 kg/m2 | SpO2 98% | ? Unknown Physical Exam Nursing note and vitals reviewed. Constitutional: She is oriented to person, place, and time. She appears well-nourished. She appears distressed (mild respiratory distress). HENT: Head: Normocephalic and atraumatic. Mouth/Throat: No oropharyngeal exudate. Eyes: EOM are normal. Pupils are equal, round, and reactive to light. No scleral icterus. Neck: Neck supple. No JVD present. Pulmonary/Chest: She is in respiratory distress (mild respiratory distress). She has no whe ezes. She has no rales. Tachypneic, reduced breath sounds Abdominal: Soft. Bowel sounds are normal. She exhibits no distension. There is no tendernes s. There is no rebound. Musculoskeletal: Normal range of motion. She exhibits no edema. Neurological: She is alert and oriented to person, place, and time. She displays normal ref lexes. No cranial nerve deficit. Coordination normal. Skin: Skin is warm. No erythema. Psychiatric: She has a normal mood and affect. DATA CBC: Lab Results Component Value Date WBC 18.3* 01/23/2012 RBC 4.15 01/23/2012 HGB 9.7* 01/23/2012 HCT 30.0* 01/23/2012 MCV 72.3* 01/23/2012 MCH 23.3* 01/23/2012 MCHC 32.3 01/23/2012 RDW 57.3* 01/23/2012 PLT 303 01/23/2012 MPV 9.2 01/23/2012 DIFFTYPE AUTOMATED 01/23/2012 CMP: Lab Results Component Value Date NA 135 01/23/2012 K 3.9 01/23/2012 CL 106 01/23/2012 CO2 18* 01/23/2012 ANIONGAP 16 01/23/2012 GLUF 96 01/23/2012 BUN 21 01/23/2012 CREATININE 2.09* 01/23/2012 BCR 10 01/23/2012 CA 7.9* 01/23/2012 PROT 8.1 01/23/2012 ALB 3.2* 01/23/2012 GLOB 4.9 01/23/2012 BILITOT 0.3 01/23/2012 ALP 64 01/23/2012 AST 14 01/23/2012 ALT 15 01/23/2012 EGFR 27* 01/23/2012 Xr Chest Ap Portable 01/23/2012 IMPRESSION: 1. Pleural thickening in the left lateral cost phrenic sulcus sugge sting pleural reaction, with adjacent atelectasis. No definable infiltrates presently. Raysa ctronically signed by Anthony Hurley MD on 01/23/2012 4:02 PM PROBLEM LIST Principal Problem: *PNA (pneumonia) Active Problems: SOB (shortness of breath) Hypoxia Anemia ARF (acute renal failure) TB (pulmonary tuberculosis) Rheumatoid arthritis ASSESSMENT & PLAN Patient Active Hospital Problem List: 1)PNA (pneumonia) (01/23/2012) Assessment: no evidence of PNA on x ray. Plan: will however continue with treatment for CAP given high fever, cough and leucocytos is. Will get pulmonary on board. Discussed with Dr Sigala who will evaluate the patient later t tomasa. Patients cough/fever may also represent a non-infectious etiology such as rheumatoid o r stills disease. Patients shortness of breath could partly be attributed to acidosis which is primarily metabolic. 2)Rheumatoid arthritis (01/23/2012) Plan: on plaquenil. Will continue 3) ARF (acute renal failure)/ metabolic acidosis (11/16/2011) Assessment: etiology of patients renal failure is not clear. She did have renal failure d uring the previous hospitalization as well. ?NSAID use 2/2 rheumatoid. Patients shortness of breath could partly be 2/2 metabolic acidosis. Plan: will repeat studies including urinalysis and urine protein/creatinine ratio. Contin ue iv fluids. Consider bicarb drip if acidosis does not improve. 4)SOB (shortness of breath) (11/14/2011) Assessment: now saturating well on 2 lts. Plan: as above. 5)Anemia (11/16/2011) Assessment: ?2/2 chronic disease Plan: monitor. 6)TB (pulmonary tuberculosis) (01/23/2012) Plan: continue HRZE. Pulmonary on consult. Disposition: Inpatient. Code Status: full code. Primary Care Physician: NATTY STEEN DO, DO Seetharam Pothi Reddy, MD 01/23/2012 documente d in this encounter Consult Notes Anthony Sigala MD - 01/23/2012 7:35 PM PDT Consult* by Anthony Sigala MD at 01/23/121934 Author: Anthony Sigala MD Service: (none) Author Type: Physician Filed: 01/23/122017 Date of Service: 01/23/121934 Status: Signed Residential Tech: Anthony Sigala MD (Physician) Related Notes: Original Note by Anthony Sigala MD (Physician) filed at 01/23/122017 [facility] Service: Pulmonology Initial Consult Note Date of Admission: 01/23/2012 Reason for Consultation: Left pleural effusion Requesting Physician: Hospitalist History Obtained From: patient, chart review CHIEF COMPLAINT: fever HISTORY OF PRESENT ILLNESS The patient is a 47 y.o. female with significant past medical history of A 47-year-old lad y with a history of rheumatoid arthritis, previously on tumor necrosis factor for 3 years which was stopped in April 2011, being followed by [place], Dr. Pacheco Castillo. The patient was also previously on prednisone and methotrexate which was discontinued on December 24, 2011. 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 Pleural fluid shows mycobacterium tuberculosis. Right pleural effusion was drained at [facility] in [place]. The results were not available for review. The patient was placed on daily ionized rifampin [employer] ethambutol on December 21, 2011, at Replaced by [facility]. Other workup that was done included HIV which was negative. The patient claimed that the TB medication was switched to twice weekly including ionized rifampin [employer] and ethambutol. For the past 2 days the patient was complaining of fever, chilling, and sweating with temperature up to 103 degrees, in which the patient took NyQuil and Tylenol. She had a dry cough. She denies any chest pain. She has a frontal headache. She also complained of shortness of breath that started yesterday. She is not using any Medihaler however the patient has Ventolin HFA at home. The patient complained of shortness of breath on doing laundry, on climbing 1 flight of stairs bringing a bag of clothing up and down the stairs. The patient denies any dysuria, nausea, vomiting, or abdominal pain. The patient also complained of wrist and hand pain and joint pain. The patient had seen the primary care provider today and the patient was sent to [facility] emergency room. The patient was transferred here for further evaluation. REVIEW OF SYSTEMS Review of Systems Constitutional: Positive for fever, chills and diaphoresis. Negative for activity change, a ppetite change, fatigue and unexpected weight change. Eyes: Negative. Respiratory: Positive for cough and shortness of breath. Negative for apnea, choking, chest tightness, wheezing and stridor. Cardiovascular: Negative. Negative for chest pain, palpitations and leg swelling. Gastrointestinal: Negative. Genitourinary: Negative. Musculoskeletal: Positive for joint swelling and arthralgias. Negative for back pain and ga it problem. Skin: Negative. Neurological: Positive for headaches. Negative for dizziness, tremors, seizures, syncope, f acial asymmetry, speech difficulty, weakness, light-headedness and numbness. Hematological: Negative. Psychiatric/Behavioral: Negative. Past Medical History Diagnosis Date Rheumatoid arthritis Past Surgical History Procedure Date Gall stone removal Tumor removal Neck Tonsillectomy Cholecystectomy No Known Allergies Prescriptions prior to admission Medication Sig Dispense Refill ethambutol (MYAMBUTOL) 400 MG tablet Take 4,000 mg by mouth twice a week. On Friday Indications: Infection caused by Mycobacteria hydroxychloroquine (PLAQUENIL) 200 MG tablet Take by mouth daily. hydroxychloroquine (PLAQUENIL) 200 MG tablet Take 400 mg by mouth daily. isoniazid (NYDRAZID) 300 MG tablet Take 900 mg by mouth twice a week. On Friday pyrazinamide 500 MG tablet Take 4,000 mg by mouth twice a week. Friday and Friday pyridoxine (B-6) 100 MG tablet Take 50 mg by mouth daily. pyridoxine (B-6) 100 MG tablet Take 100 mg by mouth twice a week. rifampin (RIFADIN) 300 MG capsule Take 600 mg by mouth twice a week. On Friday and fri Scheduled Medications albuterol 5 mg Nebulization Once azithromycin 500 mg Intravenous Q24H ceftriaxone 1 g Intravenous Q24H enoxaparin 1 mg/kg Subcutaneous Once ethambutol 4,000 mg Oral User Specified heparin (porcine) 5,000 Units Subcutaneous Q8H isoniazid 900 mg Oral User Specified ketorolac 30 mg Intravenous Once pneumococcal vaccine 0.5 mL Intramuscular Once pyrazinamide 4,000 mg Oral User Specified pyridoxine 50 mg Oral Daily rifampin 600 mg Oral User Specified DISCONTD: enoxaparin 1 mg/kg Subcutaneous Once DISCONTD: ethambutol 4,000 mg Oral Twice Weekly DISCONTD: isoniazid 900 mg Oral Twice Weekly DISCONTD: pyrazinamide 4,000 mg Oral Twice Weekly DISCONTD: rifampin 600 mg Oral Twice Weekly Continuous Infusions sodium chloride 125 mL/hr at 01/23/12 1726 DISCONTD: sodium chloride 150 mL/hr at 01/23/12 1606 PRN Medications acetaminophen, acetaminophen, morphine, morphine, morphine, ondansetron, ondansetron, polye thylene glycol, zolpidem, DISCONTD: HYDROmorphone Family History Problem Relation Age of Onset Diabetes type II Mother High cholesterol Father Diabetes type II Father History Social History Marital Status: Spouse Name: N/A Number of Children: N/A Years of Education: N/A Occupational History Not on file. Social History Main Topics Smoking status: Former Smoker Smokeless tobacco: Not on file Comment: Quit about 2 months ago. 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 No I&O Last 3 Shifts: Physical Exam Constitutional: She appears well-developed and well-nourished. No distress. HENT: Head: Normocephalic and atraumatic. Nose: Nose normal. Mouth/Throat: No oropharyngeal exudate. Eyes: Conjunctivae are normal. Pupils are equal, round, and reactive to light. No scleral i cterus. Neck: Normal range of motion. Neck supple. No JVD present. No tracheal deviation present. N o thyromegaly present. Cardiovascular: Normal rate, regular rhythm, normal heart sounds and intact distal pulses. Exam reveals no gallop and no friction rub. No murmur heard. Pulmonary/Chest: Effort normal. No stridor. No respiratory distress. She has no wheezes. Sh e has no rales. She exhibits no tenderness. Decreased breath sound left lung base. Abdominal: Soft. Bowel sounds are normal. She exhibits no distension and no mass. There is no tenderness. There is no rebound and no guarding. Musculoskeletal: Normal range of motion. She exhibits no edema and no tenderness. Lymphadenopathy: She has no cervical adenopathy. Neurological: She is alert. Skin: Skin is warm. No rash noted. She is not diaphoretic. No erythema. No pallor. DATA CBC: Lab Results Component Value Date WBC 18.3* 01/23/2012 RBC 4.15 01/23/2012 HGB 9.7* 01/23/2012 HCT 30.0* 01/23/2012 MCV 72.3* 01/23/2012 MCH 23.3* 01/23/2012 MCHC 32.3 01/23/2012 RDW 57.3* 01/23/2012 PLT 303 01/23/2012 MPV 9.2 01/23/2012 DIFFTYPE AUTOMATED 01/23/2012 CMP: Lab Results Component Value Date NA 135 01/23/2012 K 3.9 01/23/2012 CL 106 01/23/2012 CO2 18* 01/23/2012 ANIONGAP 16 01/23/2012 GLUF 96 01/23/2012 BUN 21 01/23/2012 CREATININE 2.09* 01/23/2012 BCR 10 01/23/2012 CA 7.9* 01/23/2012 PROT 8.1 01/23/2012 ALB 3.2* 01/23/2012 GLOB 4.9 01/23/2012 BILITOT 0.3 01/23/2012 ALP 64 01/23/2012 AST 14 01/23/2012 ALT 15 01/23/2012 EGFR 27* 01/23/2012 Magnesium: Lab Results Component Value Date MG 1.9 11/17/2011 Phosphorus: Lab Results Component Value Date PHOS 4.5 11/17/2011 U/A: Lab Results Component Value Date COLORU YELLOW 11/16/2011 CLARITYU CLEAR 11/16/2011 MEROPENEM 1.010 11/16/2011 LEUKOCYTESUR NEGATIVE 11/16/2011 NITRITE NEGATIVE 11/16/2011 UROBILINOGEN 0.2 11/16/2011 PHUR 6.0 11/16/2011 BLOODU TRACE* 11/16/2011 KETONES NEGATIVE 11/16/2011 BILIRUBINUR NEGATIVE 11/16/2011 GLUCOSEU NEGATIVE 11/16/2011 A single frontal view of the chest. COMPARISON: 11/16/11, 11/14/11. FINDINGS: AP portable upright, the chest at 1440 hrs demonstrates pleural thickening in the lateral l eft costophrenic sulcus, slightly more prominent. Strandy changes in the lateral left lung b ase consistent with atelectasis. Right lung is clear. The heart size is normal. Improved aer ation. IMPRESSION: 1. Pleural thickening in the left lateral cost phrenic sulcus suggesting pleural reaction, with adjacent atelectasis. No definable infiltrates presently. PROBLEM LIST Principal Problem: *PNA (pneumonia) Active Problems: SOB (shortness of breath) Hypoxia Anemia ARF (acute renal failure) TB (pulmonary tuberculosis) Rheumatoid arthritis Hematuria r/o UTI Chronic renal insufficiency PLAN The patient's INH, rifampin, [employer] and ethambutol had been given since December 21, 2011, daily but switched to twice weekly. The patient felt to be nauseated on higher dose of medications, anti-TB medications intake at each time. The patient is taking it every Friday and Friday. I doubt if this represents reactivation of pleural TB. The patient had sputum x3 performed here at [facility] and results were negative for TB. The patient is presently placed on azithromycin and ceftriaxone in the ER which will need to be continued. INH, rifampin, ethambutol, and [employer] with vitamin B6 will all need to because continued. Blood culture has been drawn in the ER which will need to be followed. We will consider another urine culture. Urine from the ER showed hematuria. Rheumatoid factor, cyclic IgG will be ordered including ESR and CRP. The patient is presently on respiratory isolation. CT scan of the chest will be ordered tomorrow in the absence of infiltration. Consider stopping TB isolation. Solu-Medrol will be given 40 mg daily. Ambien 10 mg daily will be prescribed. Urine for legionella, pneumococcal antigen, nasopharyngeal swab for viral DFA, and mycoplasma titer will all be ordered. Code Status: Full Code Primary Care Physician: NATTY STEEN DO, DO Thank you for allowing me to participate in the care of this patient. ANTHONY SIGALA MD 01/23/2012 documented in this en counter ED Notes Conversion Transaction, Provider Unknown - 01/23/2012 2:19 PM PDTFormatting of this note m ight be different from the original. ED Notes by Mansi Saenz RN at 01/23/12 1419 Author: Mansi Saenz RN Service: (none) Author Type: Registered Nurse Filed: 01/23/12 1420 Date of Service: 01/23/121418 Status: Signed Residential Tech: Mansi Saenz RN (Registered Nurse) Pt currently on TB isolation, pt states that the health department has cleared her to work and states that she is not contagious, pt works in a [employer]. Pt is here to have another thor ecentesis Mansi Saenz RN 01/23/12 142 onver stella Transaction, Provider Unknown - 01/23/2012 1:58 PM PDT ED Notes by Mansi Saenz RN at 01/23/12 1358 Author: Mansi Saenz RN Service: (none) Author Type: Registered Nurse Filed: 01/23/12 1400 Date of Service: 01/23/12 1358 Status: Signed Residential Tech: Mansi Saenz RN (Registered Nurse) Pt states that in October she had Bilateral Thorencentesis, the fluid tested positive for TB, pt is on current course of meds for TB treatment, pt has had cough with fever X2 days, went to PCP in [facility] this am and was sent to [facility] And was sent here via EMS Mansi Saenz RN 01/23/12 1400 old, Vinicio Elkins DO - 01/23/2012 1:45 PM PDT ED Provider Notes by Vinicio Ansari DO at 01/23/12 0005 Author: Vinicio Ansari DO Service: (none) Author Type: Physician Filed: 01/25/12 0448 Date of Service: 01/23/12 1345 Status: Signed Residential Tech: Vinicio Ansari DO (Physician) Procedure Orders: 1. Critical Care [[id number]] ordered by Vinicio Ansari DO at 01/25/12 8603 [facility] Department of Emergency Medicine Provider Name: Dr. Barba [facility] Pertinent History and Concerns: recent TB, on treatments, now fever to 103 Relevant Labs or Studies: WBC 22 K Relevant Medications: blood cultures and antibiotics Currently Involved Consultants at [facility]: may need ID or pulmonary (01/23/12 1251 : CM MICHAEL) 1:45 PM History of Present Illness Patient Identification Jessie Gutiérrez is a 47 y.o. female. Patient information was obtained from patient and EMS personnel. History/Exam limitations: none. Patient presented to the Emergency Department by: [facility] Chief Complaint Chief Complaint Patient presents with Cough went to MD with c/o cough X 2 days Fever Patient presents as a transfer from [facility]. 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 Her WBC were elevated at 21.9K. The patient complains of fever. Onset of symptoms was 2 days ago, with a constant course si nce that time. The symptoms are described to be of moderate severity. The patient also comp lains of cough, SOB, and back pain. The patient describes the quality and location of the s ymptoms as the following: fever of 103F. CLINICAL ORTHOPTIST the patient was given Cipro in addition to her TB management. PCP: NATTY STEEN DO, DO Veterinary Surgeon: Dr. Sigala Past Medical History Diagnosis Date Rheumatoid arthritis Past Surgical History Procedure Date Gall stone removal Tumor removal Neck Tonsillectomy Cholecystectomy Prior to Admission medications Medication Sig Start Date End Date Taking? Authorizing Provider hydroxychloroquine (PLAQUENIL) 200 MG tablet Take by mouth daily. Historical Provider No Known Allergies History Social History Marital [...] Narrative Lives with her boyfrienRosa [facility] 2 months 1/2 ppd for 15 yearsetoh very occasionallyDrugs noneFather might have kidney problemsMother lives [place] has dm-2 Family History Problem Relation Age of Onset Diabetes type II Mother High cholesterol Father Diabetes type II Father Review of Systems Review of Systems Constitutional: Positive for fever. Negative for chills. HENT: Negative for nosebleeds, sore throat and ear discharge. Eyes: Negative for pain, discharge and redness. Respiratory: Negative for cough. Cardiovascular: Negative for chest pain and leg swelling. Gastrointestinal: Negative for nausea, vomiting, abdominal pain, diarrhea and constipation. Genitourinary: Negative for dysuria, hematuria and flank pain. Musculoskeletal: Negative for back pain and joint pain. Skin: Negative for rash. Neurological: Negative for dizziness, seizures, loss of consciousness and headaches. Psychiatric/Behavioral: Negative for hallucinations. The patient is not nervous/anxious. All other systems reviewed and are negative. Physical Exam BP 140/64 | Pulse 104 | Temp(Src) 101.5 F (38.6 C) (Oral) | Resp 24 | Ht 1.575 m (5' 2" ) | Wt 85.276 kg (188 lb) | BMI 34.39 kg/m2 | SpO2 98% | ? Unknown Vital signs interpretation: hypertensive, tachycardic, febrile, and tachypneic Pulse Oximetry interpretation: Normal Gen: A&Ox3 Head: Normocephalic, no apparent injury noted Eyes: no conjunctivitis, no scleral icterus Ears: No swelling or erythema, no drainage noted Nose: no rhinorrhea, no epistaxis Mouth: no apparent dysfunction, no gross injury Neck: Supple, no meningismus, no obvious swelling or mass CV: RRR, no murmurs, rubs or clicks Resp: Moderate respiratory distress, rales and rhonchi on left, right side normal. Abd: Round, no distension Ext: normal ROM of bilateral upper and lower extremities, no joint swelling, no deformitie s Back: Bilateral perispinal lumbar muscle spasms and TTP. Skin: No rash, normal color, warm, dry : Deferred Rect: Deferred Neuro: no focal neurological deficits noted, cerebellum normal as tested, no sensory or mot or deficiencies noted Psych: normal affect, no emotional distress noted, mentation is appropriate for age Medical Decision Making and Emergency Department Course ED Department Course Patient presents as a transfer from [facility]. She currently has TB. Previous imaging was not included in documents. Would like to CT, but because of patient's decreased renal function, will not be able to give contrast. Will order labs, cultures, and blood gases. Wi ll also give Neb treatment and pain medication. 2:33 PM Discussed case with Dr. Nagel (ED physician). He suggested that XR be performed and Dr. Sigala (rehab director occupational therapist) be consulted. XR ordered. 2:36 PM Discussed case with Dr. Sigala (rehab director occupational therapist) who agreed with the care plan and will see the patient in consult if needed. 2:55 PM XR reviewed. Small pleural effusion noted. Upon review of the patient s history, physical and the results of studies I believe that the patient warrants admission to the hospital for further evaluation and treatment. I have spoken with the patient regarding the need for admission to the hospital, and the patient h as expressed understanding of this. I will call and arrange for admission at this time. 3:11 PM Discussed case with Dr. Salguero (hospitalist) who agrees with care plan and will see patient in the ED. Records Reviewed Old medical records. Nursing notes. Patient has no ED history. Laboratory Evaluation Results Procedure Component Value Ref Range Date/Time CBC with differential [[id number]] (Abnormal) Collected:01/23/121508 Order Status:Completed Updated:01/23/12 1613 Specimen Information:Blood WBC 18.3 (H) 3.8 - 11.0 K/uL RBC 4.15 3.70 - 5.10 M/uL HGB 9.7 (L) 11.3 - 15.5 g/dL HCT 30.0 (L) 34.0 - 46.0 % MCV 72.3 (L) 80.0 - 100.0 fl MCH 23.3 (L) 27.0 - 34.0 pg MCHC 32.3 32.0 - 35.5 g/dL RDW SD 57.3 (H) 37 - 53 fl PLT 303 150 - 400 K/uL MPV 9.2 fl DIFF TYPE AUTOMATED NEUTROPHILS 79.2 (H) 40 - 75 % LYMPHOCYTES 10.9 (L) 15 - 48 % MONOCYTES 9.0 0 - 12 % EOSINOPHILS 0.5 0 - 7 % BASOPHILS 0.4 0 - 2 % NEUTROPHILS ABS 14.5 (H) 1.9 - 7.4 K/uL LYMPHOCYTES ABS 2.0 1.0 - 3.9 K/uL MONOCYTES ABS 1.6 (H) 0 - 0.8 K/uL EOSINOPHILS ABS 0.1 0 - 0.5 K/uL BASOPHILS ABS 0.1 0 - 0.1 K/uL Platelet Estimate ADEQUATE MORPHOLOGY 2+ Comprehensive metabolic panel [[id number]] (Abnormal) Collected:01/23/121508 Order Status:Completed Updated:01/23/12 1551 Specimen Information:Blood SODIUM 135 135 - 143 mmol/L POTASSIUM 3.9 3.5 - 4.9 mmol/L CHLORIDE 106 99 - 109 mmol/L CO2 18 (L) 23 - 32 mmol/L ANION GAP AGAP 16 5 - 20 mmol/L GLUCOSE 96 65 - 99 mg/dL BUN 21 8 - 25 mg/dL CREATININE 2.09 (H) 0.50 - 1.00 mg/dL BUN/CREAT 10 CALCIUM 7.9 (L) 8.5 - 10.2 mg/dL TOTAL PROTEIN 8.1 6.3 - 8.2 g/dL Albumin 3.2 (L) 3.6 - 5.0 g/dL GLOBULIN 4.9 1.3 - 4.9 g/dL A/G 0.6 (L) 1.0 - 2.4 TBIL 0.3 0.1 - 1.5 mg/dL ALK PHOS 64 35 - 115 U/L AST 14 10 - 45 U/L ALT 15 10 - 65 U/L EGFR 27 (L) >60 mL/min/1.73m2 TSH [[id number]] Collected:01/23/12 150 Order Status:Completed Updated:01/23/121550 Specimen Information:Blood TSH 0.80 0.45 - 5.10 uIU/mL T4, Free [[id number]] Collected:01/23/12 150 Order Status:Completed Updated:01/23/121550 Specimen Information:Blood FREE T4 1.2 0.7 - 1.5 ng/dL [facility] Lab results: WBC 21.9 HGB 10.2 HCT 33.5 Band 2 CO2 15 BUN 21 Creatinine 2.06 GFR 26 ED ABG: PH 7.375 PCO2 26.3 PC2 76 BEecf -10 HCO3 15.4 TCO2 16 SO2 95% Lac 0.33 I personally reviewed the lab results and they have been posted to the chart. Pertinent po sitive and negative findings have been addressed appropriately. Radiology and EKG Evaluation Imaging Results XR Chest AP portable (Final result) Result time:01/23/12 1602 Final result by Rad Results In Robin (01/23/12 16:02:22) Narrative: HISTORY: Shortness of breath. A single frontal view of the chest. COMPARISON: 11/16/11, 11/14/11. FINDINGS: AP portable upright, the chest at 1440 hrs demonstrates pleural thickening in the lateral l eft costophrenic sulcus, slightly more prominent. Strandy changes in the lateral left lung base consistent with atelectasis. Right lung is clear. The heart size is normal. Improved aeration. IMPRESSION: 1. Pleural thickening in the left lateral cost phrenic sulcus suggesting pleural reaction, with adjacent atelectasis. No definable infiltrates presently. Interpretation Documented by Mingo Delong (01/23/12 3153, [facility] Emergency Department, Emergency Medicine) Small left sided pleural effusion, no cardiomegaly, normal mediastinum, no pneumothorax, no bony abnormalities. The x-rays were reviewed by me and interpreted by me contemporaneously. Vinicio Ansari D.O. CXR [facility] [place]: Small pleural effusion with adjacent volume loss left lung base. -Tony Rebolledo MD on 01/23/2012 at 11:05 AM. ED Diagnoses Final diagnoses Pleural effusion TB (tuberculosis) Associated Orders COMPREHENSIVE METABOLIC PANEL Sepsis Diagnosis includes: dyspnea, pneumonia, anemia, leukocytosis, renal insufficiency, hypocalc emia Disposition: ED Disposition Admit/Observation Bed request special needs: None Diagnosis?: pleural effusion, TB, sepsis Additional Documentation Critical Care Performed by: VINICIO ANSARI Authorized by: VINICIO ANSARI Total critical care time: 50 minutes Critical care time was exclusive of separately billable procedures and treating other patie nts. Critical care was necessary to treat or prevent imminent or life-threatening deterioration of the following conditions: sepsis. Critical care was time spent personally by me on the following activities: development of t reatment plan with patient or surrogate, discussions with consultants, evaluation of patient 's response to treatment, examination of patient, obtaining history from patient or surrogat e, ordering and performing treatments and interventions, ordering and review of laboratory s tudies, pulse oximetry, ordering and review of radiographic studies, re-evaluation of patien t's condition and review of old charts. Attending Note: Documentation assistance provided by MINGO DELONG (Scribe). Information recorded by the scribe has been reviewed and validated by me. I ag ree with its contents. DO Vinicio Luna DO 01/25/12 2328 Hali Wolf ARNP - 01/23/2012 1:45 PM PDTFormatting of this note might be different from the orig inal. ED Notes by Renea Tolliver RN at 01/23/12 5693 Author: Renea Tolliver RN Service: (none) Author Type: Registered Nurse Filed: 01/23/12 7662 Date of Service: 01/23/121344 Status: Signed Residential Tech: Renea Tolliver RN (Registered Nurse) Bed:05
Expected date:
Expected time:
Means of arrival:
Comments:
Kleber suarez pt- Chirag valle onversio n Transaction, Provider Unknown - 01/23/2012 12:35 PM PDTFormatting of this note might be di fferent from the original. ED Notes by Indu Early RN at 01/23/12 5942 Author: Indu Early RN Service: (none) Author Type: Registered Nurse Filed: 01/23/12 1244 Date of Service: 01/23/12 1235 Status: Signed Residential Tech: Indu Early RN (Registered Nurse) Report from KARI Garcia, Santiago Pearce: 47F, saw PCP today with c/o "fluid build-up"- sent to ED for further eval/ possible transfer to [facility]. Had fluid drained from lungs in October/November . X-ray today shows Left pleural effusion. Tender with palpation of left chest. Decreased breath sound. Pt tachypnea upon arrivalRR-40. BP-107/P. RR improved now, 32-36, bp 119/6 8. Sats 96-98% TB protocol- although no mention of TB on x-ray report. Meds given: Dilaud id 0.5mt IV, Zofran 4mg IV, Zithromax 500mg IV, Rocephin 1GM IV. Labs: CO2=15, WBC's=21.9, Hgb=7, Hct=33, MM=748, Vwsdqso=524, Creatinine= 2.06. Ambulance ETA: 1300 Indu Early RN 01/23/12 1245 docume nted in this encounter Plan of Treatment Not on filedocumented as of this encounter Procedures + +--------+ + + + | Procedure Name | Priori | Date/Time | Associated Diagnosis | Comments | | | ty | | | | + +--------+ + + + | VIRAL DFA STAIN, | Timed | 01/25/2012 | | Results for this | | REFLEX TO VIRAL | | 10:36 AM | | procedure are in the | | CULTURE | | PDT | | results section. | + +--------+ + + + | HISTORICAL | Timed | 01/24/2012 | | Results for this | | MICROBIOLOGY RESULT | | 6:39 PM | | procedure are in the | | | | PDT | | results section. | + +--------+ + + + | CT CHEST WO CONTRAST | Routin | 01/24/2012 | | Results for this | | | e | 8:03 AM | | procedure are in the | | | | PDT | | results section. | + +--------+ + + + | STREPTOCOCCUS | Routin | 01/23/2012 | | Results for this | | PNEUMONIAE AG, URINE | e | 8:57 PM | | procedure are in the | | | | PDT | | results section. | + +--------+ + + + | CULTURE, URINE | Timed | 01/23/2012 | | Results for this | | | | 8:57 PM | | procedure are in the | | | | PDT | | results section. | + +--------+ + + + | CULTURE, BLOOD, 2ND | Timed | 01/23/2012 | | Results for this | | SPECIMEN (NON-ORD) | | 4:06 PM | | procedure are in the | | | | PDT | | results section. | + +--------+ + + + | CULTURE, BLOOD | Timed | 01/23/2012 | | Results for this | | | | 3:10 PM | | procedure are in the | | | | PDT | | results section. | + +--------+ + + + | XR CHEST 1 VIEW | Routin | 01/23/2012 | | Results for this | | | e | 2:48 PM | | procedure are in the | | | | PDT | | results section. | + +--------+ + + + documented in this encounter Results Viral DFA Stain, Reflex to Viral Culture (01/25/2012 10:36 AM PDT) + + | Specimen | + + | | + + + + + | Narrative | Performed At | + + + | MICRO SPECIMEN SOURCE NASOPHARYNGEAL Testing | EXTERNAL LAB | | performed at [facility];[address] [place] [address];[place] [address] VIRAL CULT DFA | | | STAIN ACCESSION NO. | | | [id number] SPECIMEN SOURCE | | | NASOPHARYNGEAL DFA | | | SPECIMEN CONTAINED TOO FEW CELLS FOR | | | EVALUATION BY DIRECT FLUORESCENT | | | ANTIBODY STAIN. RESULT | | | PRELIMINARY: NO VIRUS ISOLATED AT 7 | | | DAYS. | | | FINAL: NO VIRUS ISOLATED AT 14 DAYS. | | | Testing performed at [address] [address] | | | REPORT STATUS REPORT STATUS | | | FINAL 02/09/2012 Testing performed at [address] | | | [facility] [address] | | + + + + +---------+ + + | Performing | Address | City/State/[facility] Cent[facility]ode | Phone Number | | Organization | | | | + +---------+ + + | EXTERNAL LAB | | | | + +---------+ + + HISTORICAL MICROBIOLOGY RESULT (01/24/2012 6:39 PM PDT) + + | Specimen | + + | | + + + + + | Narrative | Performed At | + + + | Toxigenic C Difficile NEGATIVE Testing | EXTERNAL LAB | | performed at [facility];[address] [facility] [facility];[place] [address] 027 NAP1 BI | | | 027 NAP1 BI PRESUMPTIVE NEGATIVE | | | Detection of 027 NAP1 BI strains of C. difficile is presumptive and | | | for epidemiological purposes and not intended to guide or monitor | | | treatment for C. difficile infections. Testing performed at [facility] | | | [place] [address] | | + + + + +---------+ + + | Performing | Address | City/State/Zipcode | Phone Number | | Organization | | | | + +---------+ + + | EXTERNAL LAB | | | | + +---------+ + + CT Chest wo Contrast (01/24/2012 8:03 AM PDT) + + | Specimen | + + | | + + + + + | Narrative | Performed At | + + + | JESSIE GUTIÉRREZ CT CHEST WO CONTRAST 01/24/2012 7:55 AM History: | | | 47 years. Female. Acute shortness or breath and hypoxia. Acute | | | renal failure. Question of left pleural effusion. History of pulmonary | | | tuberculosis. During a single breath hold, 1.25 mm thick slices | | | were performed in the axial plane throughout the chest. 5 mm thick | | | slices were reconstructed at 5 mm intervals in the axial plane for | | | display. No IV contrast was administered. Findings: | | | Circumferential pleural thickening is noted posteriorly, medially | | | and laterally in the mid and lower left lung field, measuring 15-20 mm | | | in thickness, having the appearance of pleural fibrosis. Prior CT | | | examination of the chest on 11/15/11 demonstrated a small to | | | moderate left pleural effusion. There is no obvious free fluid in the | | | left pleural space at present. There is some focal areas of | | | pleural thickening in the right lower posterior chest, also status | | | post prior right pleural effusion. No pulmonary nodule visualized. | | | Linear densities in both lower lung montano suggests subsegmental | | | atelectasis. No lung consolidation visualized. Mildly enlarged | | | multiple mediastinal lymph nodes are noted, primarily in the | | | pretracheal space, the aorticopulmonary window, the right paratracheal | | | space and the superior mediastinum, with the largest lymph node | | | measuring approximately 16 x 11 mm. This adenopathy was also present | | | on the prior examination, unchanged, probably reactive. The pulmonary | | | obdulio are negative for adenopathy. The axillary regions are likewise | | | negative. The cardiac size and contour are normal. No | | | pericardial effusion or coronary calcifications visualized. The | | | caliber of the thoracic aorta and pulmonary arteries is normal. The | | | thyroid gland is normal in size and density, without nodule. Glandular | | | tissue of each breast is uniform and normal. Surgical clips are | | | noted in the gallbladder fossa. The upper abdomen is partially | | | visualized and appears normal. This is not a complete examination of | | | the abdomen. Minimal osteophytes of the thoracic spine indicate | | | early spondylosis. Bone density is normal. No focal osteolytic process | | | visualized in the range of the examination. Conclusions: 1. 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 No left pleural effusion noted. | | | 2. Mild, focal pleural thickening in the left chest, likewise | | | probably a residual of prior right pleural effusion. No active right | | | pleural effusion identified. 3. Mild, stable reactive mediastinal | | | adenopathy, unchanged. 4. Mild subsegmental atelectasis in both | | | lower lung montano. 5. Prior cholecystectomy. 6. The remainder of | | | the examination is unremarkable. | | + + + + + | Procedure Note | + + | Robin, Rad Conversion - 01/02/2019 7:47 AM PDT [facility]ENSOUT[facility] SERVICESErrol CHEST WO | | CONTRAST01/24/2012 7:55 AM History: 47 years. Female. Acute shortness or breath and | | hypoxia. Acute renal failure. Question of left pleural effusion. History of pulmonary | | tuberculosis. During a single breath hold, 1.25 mm thick slices were performed in the | | axial plane throughout the chest. 5 mm thick slices were reconstructed at 5 mm | | intervals in the axial plane for display. No IV contrast was administered. Findings: | | Circumferential pleural thickening is noted posteriorly, medially and laterally in the | | mid and lower left lung field, measuring 15-20 mm in thickness, having the appearance of | | pleural fibrosis. Prior CT examination of the chest on 11/15/11 demonstrated a small to | | moderate left pleural effusion. There is no obvious free fluid in the left pleural | | space at present. There is some focal areas of pleural thickening in the right lower | | posterior chest, also status post prior right pleural effusion. No pulmonary nodule | | visualized. Linear densities in both lower lung montano suggests subsegmental | | atelectasis. No lung consolidation visualized. Mildly enlarged multiple mediastinal | | lymph nodes are noted, primarily in the pretracheal space, the aorticopulmonary window, | | the right paratracheal space and the superior mediastinum, with the largest lymph node | | measuring approximately 16 x 11 mm. This adenopathy was also present on the prior | | examination, unchanged, probably reactive. The pulmonary obdulio are negative for | | adenopathy. The axillary regions are likewise negative. The cardiac size and contour are | | normal. No pericardial effusion or coronary calcifications visualized. The caliber of | | the thoracic aorta and pulmonary arteries is normal. The thyroid gland is normal in size | | and density, without nodule. Glandular tissue of each breast is uniform and normal. | | Surgical clips are noted in the gallbladder fossa. The upper abdomen is partially | | visualized and appears normal. This is not a complete examination of the abdomen. | | Minimal osteophytes of the thoracic spine indicate early spondylosis. Bone density is | | normal. No focal osteolytic process visualized in the range of the examination. | | Conclusions:1. 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 No left pleural effusion noted.2. Mild, focal pleural thickening in the left | | chest, likewise probably a residual of prior right pleural effusion. No active right | | pleural effusion identified.3. Mild, stable reactive mediastinal adenopathy, | | unchanged.4. Mild subsegmental atelectasis in both lower lung montano.5. Prior | | cholecystectomy.6. The remainder of the examination is unremarkable. Electronically | | signed by Steven Lee MD on 01/24/2012 8:38 AM | + + Streptococcus Pneumoniae Ag, Urine (01/23/2012 8:57 PM PDT) + + | Specimen | + + | | + + + + + | Narrative | Performed At | + + + | S PNEUMONIAE AG, UR NEGATIVE A NEGATIVE | EXTERNAL LAB | | S. PNEUMONIAE URINARY ANTIGEN TEST RESULT DOES NOT EXCLUDE INFECTION | | | WITH S. PNEUMONIAE. CLINICAL CORRELATION IS RECOMMENDED. Testing | | | performed at [place] [address] | | + + + + +---------+ + + | Performing | Address | City/State/Zipcode | Phone Number | | Organization | | | | + +---------+ + + | EXTERNAL LAB | | | | + +---------+ + + Culture, Urine (01/23/2012 8:57 PM PDT) + + | Specimen | + + | Urine specimen | | (specimen) | + + + + + | Narrative | Performed At | + + + | Specimen Description CLEAN CATCH URINE | EXTERNAL LAB | | Testing performed at | | | [facility];[address] [facility];[place] [address] CULTURE | | | <10,000 CFU/ML MIXED GRAM POSITIVE AND GRAM NEGATIVE | | | DARÍO NO SUSCEPTIBILITY TO FOLLOW | | | Testing performed at [facility], [address] [facility], | | | [place] [address] REPORT STATUS | | | 01/25/2012 FINAL | | + + + + +---------+ + + | Performing | Address | City/State/Zipcode | Phone Number | | Organization | | | | + +---------+ + + | EXTERNAL LAB | | | | + +---------+ + + Culture, Blood, 2nd Specimen (01/23/2012 4:06 PM PDT) + + | Specimen | + + | Blood specimen | | (specimen) | + + + + + | Narrative | Performed At | + + + | Specimen Description BLOOD CULTURE | EXTERNAL LAB | | NO GROWTH IN 5 DAYS. | | | Testing performed at [facility];[address] | | | [facility];[place], [place] [id number] REPORT STATUS | | | 01/29/2012 FINAL | | + + + + +---------+ + + | Performing | Address | City/State/Zipcode | Phone Number | | Organization | | | | + +---------+ + + | EXTERNAL LAB | | | | + +---------+ + + Culture, Blood (01/23/2012 3:10 PM PDT) + + | Specimen | + + | Blood specimen | | (specimen) | + + + + + | Narrative | Performed At | + + + | Specimen Description BLOOD CULTURE | EXTERNAL LAB | | NO GROWTH IN 5 DAYS. | | | Testing performed at [facility];[id number] | | [address];[place] [address] REPORT STATUS | | | 01/29/2012 FINAL | | + + + + +---------+ + + | Performing | Address | City/State/Zipcode | Phone Number | | Organization | | | | + +---------+ + + | EXTERNAL LAB | | | | + +---------+ + + XR Chest 1 Vw (01/23/2012 2:48 PM PDT) + + | Specimen | + + | | + + + + + | Narrative | Performed At | + + + | HISTORY: Shortness of breath. A single frontal view of the | | | chest. COMPARISON: 11/16/11, 11/14/11. FINDINGS: AP portable | | | upright, the chest at 1440 hrs demonstrates pleural thickening in the | | | lateral left costophrenic sulcus, slightly more prominent. Strandy | | | changes in the lateral left lung base consistent with atelectasis. | | | Right lung is clear. The heart size is normal. Improved | | | aeration. IMPRESSION: 1. Pleural thickening in the left lateral | | | cost phrenic sulcus suggesting pleural reaction, with adjacent | | | atelectasis. No definable infiltrates presently. Electronically | | | signed by Anthony Hurley MD on 01/23/2012 4:02 PM | | + + + + + | Procedure Note | + + | Jayme Kelly Conversion - 01/02/2019 7:47 AM PDT HISTORY:Shortness of breath. A single | | frontal view of the chest. COMPARISON:11/16/11, 11/14/11. FINDINGS:AP portable upright, | | the chest at 1440 hrs demonstrates pleural thickening in the lateral left costophrenic | | sulcus, slightly more prominent. Strandy changes in the lateral left lung base | | consistent with atelectasis. Right lung is clear. The heart size is normal. Improved | | aeration. IMPRESSION:1. Pleural thickening in the left lateral cost phrenic sulcus | | suggesting pleural reaction, with adjacent atelectasis. No definable infiltrates | | presently. | |FINDINGS: | |AP portable upright, the chest at 1440 hrs demonstrates pleural thickening in the lateral l eft costophrenic sulcus, slightly more prominent. Strandy changes in the lateral left lung base consistent with atelectasis. Right | |lung is clear. The heart size | | is normal. Improved aeration. | | | |IMPRESSION: | |1. Pleural thickening in the left lateral cost phrenic sulcus suggesting pleural reaction, with adjacent atelectasis. No definable infiltrates presently. | | | | | + + documented in this encounter Visit Diagnoses + + | Diagnosis | + + | Pleural effusion Unspecified pleural effusion | + + | TB (pulmonary tuberculosis) Unspecified pulmonary tuberculosis, confirmation | | unspecified | + + | TB (tuberculosis) Unspecified pulmonary tuberculosis, confirmation unspecified | + + | Sepsis, unspecified Sepsis | + + | Anemia Anemia, unspecified | + + | ARF (acute renal failure) (HCC) Acute kidney failure, unspecified | + + | Hypoxia Hypoxemia | + + | PNA (pneumonia) Pneumonia, organism unspecified | + + | Rheumatoid arthritis(714.0) Rheumatoid arthritis | + + | SOB (shortness of breath) Shortness of breath | + + documented in this encounter
--- OUTSIDE RECORDS SUMMARY | ~2019-11-29 | XMS | Encounter Summary ---
Demographics + + + | Address | [address] | | | [place] [address] | + + + | Home Phone | | + + + | Preferred Language | Unknown | + + + | Marital Status | | + + + | Confucianist Affiliation | Unknown | + + + | Race | Unknown | + + + | Ethnic Group | Unknown | + + + Author + + + | Author | [facility] | | | and [place] | + + + | Organization | [facility] | | | and [...] Team Providers + +------+ + | Care Washing Machine Repairer Name | Role | Phone | + +------+ + | Kyle Richey DO | PCP | | + +------+ + Reason for Visit + + + | Reason | Comments | + + + | Abdominal Pain | RM 6- mid and pain X 3 days, radiates to back, vomiting and | | | diarrhea, denies fever, is able to keep water down but not food | + + + Encounter Details +--------+---------+ + + + | Date | Type | Department | Care Team | Description | +--------+---------+ + + + | 09/13/ | Office | [facility] | Felipe, | Acute pancreatitis, | | 2020 | Visit | CARE [address] | Ras Bryan MD | unspecified | | | | [place] | [address] | complication status, | | | | [address] | [place] | unspecified | | | | [phone] | [id number] | pancreatitis type | | | | | | (Primary Dx); | | | | | | Diarrhea, | | | | | | unspecified type | +--------+---------+ + + + Social History + + + +--------+ + | Tobacco Use | Types | Packs/Day | Years | Date | | | | | Used | | + + + +--------+ + | Former Smoker | Cigarettes | | | 198206/11/2012 | + + + +--------+ + + [...] + + + | Blood Pressure | 147/75 | 09/14/2019 9:53 AM | | | | | PDT | | + + + + + | Pulse | 73 | 09/14/2019 9:53 AM | | | | | PDT | | + + + + + | Temperature | 36.9 C (98.4 F) | 09/14/2019 9:53 AM | | | | | PDT | | + + + + + | Respiratory Rate | 18 | 09/14/2019 9:53 AM | | | | | PDT | | + + + + + | Oxygen Saturation | 96% | 09/14/2019 9:53 AM | | | | | PDT | | + + + + + | Inhaled Oxygen | - | - | | | Concentration | | | | + + + + + | Weight | 95.3 kg (210 lb) | 09/14/2019 9:53 AM | | | | | PDT | | + + + + + | Height | 157.5 cm (5' 2") | 09/14/2019 9:53 AM | | | | | PDT | | + + + + + | Body Mass Index | 38.41 | 09/14/2019 9:53 AM | | | | | PDT | | + + + + + documented in this encounter Patient Instructions Patient Instructions Ras Wang MD - 09/14/2019 9:45 AM PDTGo directly to ER at [facility] documented in this encounter Progress Radha Santana, Media Law Faculty Member - 09/14/2019 9:45 AM PDTVenipuncture to patients Lef t AC with 23 gauge butterfly needle. One purple and one green top were drawn. Patient tolera cory well. Verified name and date of of patient before provider orders were carried out. Ras Weaver MD - 09/14/2019 9:45 AM PDTFormatting of this note might be differ ent from the original. Subjective: Chief Complaint: Abdominal Pain (RM 6- mid and pain X 3 days, radiates to back, vomiting an d diarrhea, denies fever, is able to keep water down but not food) Jessie is a 54 y.o. female who comes in complaining of abdominal pain x3 days.. HPI this 54-year-old woman presents with 3-day history of epigastric pain. She had onset o f upper abdominal bloating then some diarrhea on Friday, September 11. She then had onset of vomit ing and abdominal pain epigastric location up to 10/10 in intensity. Pain has waxed and wan ed but has never been under 4/10 and is currently 8/10. She was tired and slept all day yes terday. Today she continues to throw up and have diarrhea. There have been several episode s of each. There is been no blood per mouth or rectum. Pain has radiated directly through to the middle of her back. There is no fever she does have chills she does not have runny n ose sore throat cough shortness of breath earache bladder urgency frequency dysuria hematuri a. She has not traveled outside the area she has taken no antibiotics recently she has no a nimal contacts. She does not drink any alcohol. She has had no new medications prescribed. She is status post cholecystectomy. She lives at home with her who works at a [employer]. She has been in home isolation f or weeks. She does not have exertional chest pain. Patient's medications, allergies, past medical, surgical, social and family histories were reviewed and updated as appropriate. ROS Significant past medical history including diabetes with chronic renal insufficiency athero sclerotic heart disease rheumatoid arthritis on Humira Objective: BP 147/75 | Pulse 73 | Temp 36.9 C (98.4 F) (Temporal) | Resp 18 | Ht 1.575 m (5' 2 ") | Wt 95.3 kg (210 lb) | LMP 07/23/2017 (Approximate) | SpO2 96% | BMI 38.41 kg/m Physical Exam Moderately uncomfortable woman. Vital signs as above. Oropharynx with moist membranes and no lesions neck supple no adenopathy Lungs clear heart RRR no MRG Abdomen tender over the epigastric region without mass-effect rebound or guarding. She has no hepatosplenomegaly. Surgical scars are present consistent with history. There is some pain to palpation into the left upper quadrant and less so into the right upper quadrant. Recent Results (from the past 24 hour(s)) Comprehensive Metabolic Panel Result Value Ref Range Na 139 136 - 145 mmol/L K 4.5 3.5 - 5.1 mmol/L Cl 106 98 - 107 mmol/L CO2 18 (L) 21 - 32 mmol/L Anion Gap 15 2 - 16 mmol/L Glucose 252 (H) 74 - 106 mg/dL BUN 41 (H) 7 - 18 mg/dL Creatinine 2.67 (H) 0.55 - 1.02 mg/dL eGFR if not 18 (L) >=60 mL/min/1.73m2 Calcium 8.5 8.5 - 10.1 mg/dL Albumin 3.7 3.4 - 5.0 g/dL Bilirubin Total 0.6 0.2 - 1.0 mg/dL Total Protein 8.3 (H) 6.4 - 8.2 g/dL AST 12 (L) 15 - 37 U/L ALT 17 14 - 59 U/L Alkaline Phosphatase 104 46 - 116 U/L Globulin 4.6 (H) 2.1 - 3.8 g/dL Albumin/Globulin Ratio 0.8 0.8 - 2.0 BUN/Creatinine Ratio 15.4 Lipase Result Value Ref Range Lipase 409 (H) 73 - 393 U/L CBC with Differential Result Value Ref Range WBC 10.5 4.0 - 11.0 K/uL RBC 5.12 3.70 - 5.20 M/uL Hemoglobin 15.5 11.5 - 16.0 g/dL Hematocrit 45.9 34.0 - 47.0 % MCV 89.6 83.0 - 101.0 fL MCH 30.3 28.0 - 35.0 pg MCHC 33.8 32.0 - 36.0 g/dL RDW-CV 13.4 <15.0 % RDW-SD 44.5 35.1 - 46.3 fL Platelet Count 220 140 - 440 K/uL MPV 11.9 6.5 - 12.4 fL % Neutrophils 80.5 45.0 - 82.0 % % Lymphocytes 14.8 (L) 20.0 - 45.0 % % Monocytes 3.4 (L) 4.0 - 12.0 % % Eosinophils 0.3 0.0 - 5.0 % % Basophils 0.8 0.0 - 1.0 % % Immature Granulocytes 0.2 0.0 - 0.4 % Absolute Neutrophils 8.49 1.80 - 8.50 K/uL Absolute Lymphocytes 1.56 0.60 - 3.20 K/uL Absolute Monocytes 0.36 0.00 - 1.00 K/uL Absolute Eosinophils 0.03 0.00 - 0.40 K/uL Absolute Basophils 0.08 0.00 - 0.10 K/uL Absolute Immature Granulocytes 0.02 0.00 - 0.03 K/uL Assessment and Plans: 1. Acute pancreatitis, unspecified complication status, unspecified pancreatitis type 2. Diarrhea, unspecified type Cause of the pancreatitis is on clear at this time. Patient has significant comorbidities and needs to have further investigation. CT is not available probably in our urgent care se tting. She is advised to go to the ER for further work-up and treatment. She agrees and he r will drive her there now. We will notify the ER staff of her current diagnosis an d they will assume care. This note was dictated using [employer] voice recognition software. Occasional wrong- word or s ound-alike substitutions may have occurred due to the inherent limitations of voice recognit ion software. Please read the chart carefully and recognize, using context, where these subs titutions have occurred. documented in this encounter Plan of Treatment Not on filedocumented as of this encounter Procedures + +--------+ + + + | Procedure Name | Priori | Date/Time | Associated Diagnosis | Comments | | | ty | | | | + +--------+ + + + | CBC WITH | STAT | 09/14/2019 | Acute | Results for this | | DIFFERENTIAL | | 10:25 AM | pancreatitis, | procedure are in the | | | | PDT | unspecified | results section. | | | | | complication status, | | | | | | unspecified | | | | | | pancreatitis type | | + +--------+ + + + | LIPASE | STAT | 09/14/2019 | Acute | Results for this | | | | 10:25 AM | pancreatitis, | procedure are in the | | | | PDT | unspecified | results section. | | | | | complication status, | | | | | | unspecified | | | | | | pancreatitis type | | + +--------+ + + + | COMPREHENSIVE | STAT | 09/14/2019 | Acute | Results for this | | METABOLIC PANEL | | 10:25 AM | pancreatitis, | procedure are in the | | | | PDT | unspecified | results section. | | | | | complication status, | | | | | | unspecified | | | | | | pancreatitis type | | + +--------+ + + + documented in this encounter Results CBC with Differential (09/14/2019 10:25 AM PDT) + + + + + + | Component | Value | Ref Range | Performed | Pathologist | | | | | At | Signature | + + + + + + | White Blood | 10.5 | 4.0 - 11.0 K/uL | [facility] | | | Cells | | | [facility] | [facility] | | | [facility] | | | | | [facility] | | + + + + + + | Red Blood | 5.12 | 3.70 - 5.20 | [facility] | | | Cells | | M/uL | [facility] | [facility] | | | | [facility] | | | | | [facility] | | + + + + + + | Hemoglobin | 15.5 | 11.5 - 16.0 | [facility] | | | | | g/dL | [facility] | [facility] | | | | [facility] | | | | | | [facility] | | + + + + + + | Hematocrit | 45.9 | 34.0 - 47.0 % | [facility] | | | | | | [facility] | | | [facility] | | [facility] | | + + + + + + | MCV | 89.6 | 83.0 - 101.0 fL | [facility] | | | | | | [facility] | | | [facility] | | [facility] | | + + + + + + | MCH | 30.3 | 28.0 - 35.0 pg | [facility] | | | | | | [facility] | [facility] | | | | [facility] | | | | | | [facility] | | + + + + + + | MCHC | 33.8 | 32.0 - 36.0 | [facility] | | | | | g/dL | [facility] | | [facility] | | | | | [facility] | | + + + + + + | RDW-CV | 13.4 | <15.0 % | [facility] | | | | | | [facility] | | | [facility] | | | | | [facility] | | + + + + + + | RDW-SD | 44.5 | 35.1 - 46.3 fL | [facility] | | | | | | [facility] | [facility] | | | | [facility] | | | | | [facility] | | + + + + + + | Platelet | 220 | 140 - 440 K/uL | [facility] | | | Count | | | [facility] | | [facility] | | | | [facility] | | + + + + + + | MPV | 11.9 | 6.5 - 12.4 fL | [facility] | | | | | | [facility] | | [facility] | | | | [facility] | | + + + + + + | % | 80.5 | 45.0 - 82.0 % | [facility] | | | Neutrophils | | | [facility] | [facility] | | | [facility] | [facility] | | | | | | [facility] | | + + + + + + | % | 14.8 (L) | 20.0 - 45.0 % | [facility] | | | Lymphocytes | | | [facility] | [facility] | | [facility] | | | | | [facility] | | + + + + + + | % Monocytes | 3.4 (L) | 4.0 - 12.0 % | [facility] | | | | | | [facility] | | [facility] | | | | | [facility] | | + + + + + + | % | 0.3 | 0.0 - 5.0 % | [facility] | | | Eosinophils | | | [facility] | | [facility] | | | | | [facility] | | | | | | [facility] | | + + + + + + | % Basophils | 0.8 | 0.0 - 1.0 % | [facility] | | | | | | [facility] | [facility] | | | | | [facility] | | | | | | [facility] | | + + + + + + | % Immature | 0.2 | 0.0 - 0.4 % | [facility] | | | Granulocyte | | | [facility] | | | s | | | [facility] | | | | | | [facility] | | | | | | [facility] | | + + + + + + | Absolute | 8.49 | 1.80 - 8.50 | [facility] | | | Neutrophils | | K/uL | [facility] | [facility] | | | | [facility] | | | | | | [facility] | | + + + + + + | Absolute | 1.56 | 0.60 - 3.20 | [facility] | | | Lymphocytes | | K/uL | [facility] | [facility] | | | | [facility] | | | | | | [facility] | | + + + + + + | Absolute | 0.36 | 0.00 - 1.00 | [facility] | | | Monocytes | | K/uL | [facility] | | [facility] | [facility] | | | | | | [facility] | | | | | | [facility] | | + + + + + + | Absolute | 0.03 | 0.00 - 0.40 | [facility] | | | Eosinophils | | K/uL | [facility] | | [facility] | | | | | [facility] | | | | | | [facility] | | + + + + + + | Absolute | 0.08 | 0.00 - 0.10 | [facility] | | | Basophils | | K/uL | [facility] | | | | | [facility] | | | | | | [facility] | | | | | | [facility] | | + + + + + + | Absolute | 0.02 | 0.00 - 0.03 | [facility] | | | Immature | | K/uL | [facility] | | | Granul[facility] | | | MEDICAL | | | s | | | [facility] | | | | | | [facility] | | + + + + + + + + | Specimen | + + | Blood | + + + + + + + | Performing | Address | City/State/Zipcode | Phone Number | | Organization | | | | + + + + + | [facility] | [address] | [place] | [phone] | | [facility] | | [address] | | | [facility] | | | | + + + + + Lipase (09/14/2019 10:25 AM PDT) + +---------+ + + + | Component | Value | Ref Range | Performed | Pathologist | | | | | At | Signature | + +---------+ + + + | Lipase | 409 (H) | 73 - 393 U/L | [facility] | | | | | | [facility] | [facility] | [facility] | | + +---------+ + + + + + | Specimen | + + | Blood | + + + + + + + | Performing | Address | City/State/Zipcode | Phone Number | | Organization | | | | + + + + + | [facility] | [address] | [place] | [phone] | | [facility] | | [address] | | | [facility] | | | | + + + + + Comprehensive Metabolic Panel (09/14/2019 10:25 AM PDT) + + + + + + | Component | Value | Ref Range | Performed | Pathologist | | | | | At | Signature | + + + + + + | Na | 139 | 136 - 145 | [facility] | | | | | mmol/L | [facility] | [facility] | | [facility] | | | | [facility] | | + + + + + + | K | 4.5 | 3.5 - 5.1 | [facility] | | | | | mmol/L | [facility] | | [facility] | [facility] | | | | | [facility] | | + + + + + + | Cl | 106 | 98 - 107 mmol/L | [facility] | | | | | | [facility] | | [facility] | | | | | [facility] | | + + + + + + | CO2 | 18 (L) | 21 - 32 mmol/L | [facility] | | | | | | [facility] | | | [facility] | | | | | [facility] | | + + + + + + | Anion Gap | 15 | 2 - 16 mmol/L | [facility] | | | | | | [facility] | | | | | [facility] | | | | | | [facility] | | + + + + + + | Glucose | 252 (H) | 74 - 106 mg/dL | [facility] | | | | | | [facility] | [facility] | [facility] | | | | | [facility] | | + + + + + + | BUN | 41 (H) | 7 - 18 mg/dL | [facility] | | | | | | [facility] | | | | | [facility] | | | | | | [facility] | | + + + + + + | Creatinine | 2.67 (H) | 0.55 - 1.02 | [facility] | | | | | mg/dL | [facility] | | | | | [facility] | | | | | | [facility] | | | | | | [facility] | | + + + + + + | eGFR if not | 18 (L)Comment: | >=60 | [facility] | | | | GLOMERULAR FILTRATION | mL/min/1.73m2 | [facility] | | | [place] | RATE,ESTIMATED | | [facility]ICAL | | | | mL/min/1.33p6Bjaf than | | PARK | | | | 60 Chronic kidney | | LABORATORY | | | | disease,if found over a | | | | | | 3-month period.Less than | | | | | | 15 Kidney failureFor | | | | | | | | | | | | Americans,multiply the | | | | | | calculated GFR by 1.21. | | | | | | | | | | + + + + + + | Calcium | 8.5 | 8.5 - 10.1 | [facility] | | | | | mg/dL | [facility] | [facility] | | | | | [facility] | | | | | | [facility] | | + + + + + + | Albumin | 3.7 | 3.4 - 5.0 g/dL | [facility] | | | | | | [facility] | | | | [facility] | | | | | | [facility] | | | | | | [facility] | | + + + + + + | Bilirubin | 0.6 | 0.2 - 1.0 mg/dL | [facility] | | | Total | | | [facility] | | | | | [facility] | | | | | | [facility] | | | | | | [facility] | | + + + + + + | Total | 8.3 (H) | 6.4 - 8.2 g/dL | [facility] | | | Protein | | | [facility] | | [facility] | | | [facility] | | | | | | [facility] | | + + + + + + | AST | 12 (L) | 15 - 37 U/L | [facility] | | | | | | [facility] | | | | | [facility] | | | | | | [facility] | | + + + + + + | ALT | 17 | 14 - 59 U/L | [facility] | | | | | | [facility] | [facility] | | | | | [facility] | | | | | | [facility] | | + + + + + + | Alkaline | 104 | 46 - 116 U/L | [facility] | | | Phosphatase | | | [facility] | | [facility] | | | | | | [facility] | | | | | | [facility] | | + + + + + + | Globulin | 4.6 (H) | 2.1 - 3.8 g/dL | [facility] | | | | | | [facility] | | [facility] | | | | | [facility] | | | | | | [facility] | | + + + + + + | Albumin/Lissette | 0.8 | 0.8 - 2.0 | [facility] | | | bulin Ratio | | | [facility] | | | | | [facility] | | | | | | [facility] | | | | | | [facility] | | + + + + + + | BUN/Creatin | 15.4 | | [facility] | | | ine Ratio | | | [facility] | | | | | | [facility] | | | | | | [facility] | | | | | | [facility] | | + + + + + + + + | Specimen | + + | Blood | + + + + + + + | Performing | Address | City/State/Zipcode | Phone Number | | Organization | | | | + + + + + | [facility] | [address] | [place] | [phone] | | [facility] | | [address] | | | [facility] | | | | + + + + + documented in this encounter Visit Diagnoses + + | Diagnosis | + + | Acute pancreatitis, unspecified complication status, unspecified pancreatitis type - | | Primary | + + | Diarrhea, unspecified type | + + documented in this encounter
--- OUTSIDE RECORDS SUMMARY | ~2019-11-29 | XMS | Encounter Summary ---
Demographics + + + | Address | [address] | | | [place] [address] | + + + | Home Phone | | + + + | Preferred Language | Unknown | + + + | Marital Status | | + + + | Caodaism Affiliation | Unknown | + + + | Race | Unknown | + + + | Ethnic Group | Unknown | + + + Author + + + | Author | [facility] | | | and [place] | + + + | Organization | [facility] | | | [...] Team Providers + +------+ + | Care Computer Game Designer Name | Role | Phone | + +------+ + | Kyle Richey DO | PCP | | + +------+ + Encounter Details +--------+ + + + + | Date | Type | Department | Care Team | Description | +--------+ + + + + | 06/10/ | Imaging | [facility] | Provider, | | | 2018 | Exam | [facility] | [address] | | | | | IMAG[facility] [address] | [address] | | | | | [address] | [place] [address] | | | | | [place] [address] | | | | | | [phone] | | | +--------+ + + + [...] +--------+ + + + | XR CHEST 2 VIEWS | Routin | 06/06/2017 | | Results for this | | | e | 1:50 PM | | procedure are in the | | | | PST | | results section. | + +--------+ + + + documented in this encounter Results XR Chest 2 VW (06/06/2017 1:50 PM PST) + + | Specimen | + + | | + + + + + | Narrative | Performed At | + + + | External films for comparison only - no result from [facility]. | [facility] | + + + + +---------+ + + | Performing | Address | City/State/Zipcode | Phone Number | | Organization | | | | + +---------+ + + | [facility] | | | | + +---------+ + + documented in this encounter Visit Diagnoses Not on filedocumented in this encounter"
--- OUTSIDE RECORDS SUMMARY | ~2019-11-29 | XMS | Encounter Summary ---
Demographics + + + | Address | [address] | | | [place] [address] | + + + | Home Phone | | + + + | Preferred Language | Unknown | + + + | Marital Status | | + + + | Jain Affiliation | Unknown | + + + [...] Team Providers + +------+ + | Care Mixer Wet Pour Name | Role | Phone | + +------+ + PCP | Unavailable | + +------+ + Reason for Visit + + + | Reason | Comments | + + + | New Patient | consult on a cough | + + + Evaluate & Treat (Routine) +--------+--------+ + + + + | Status | Reason | Specialty | Diagnoses / | Referred By | Referred To | | | | | Procedures | Contact | Contact | +--------+--------+ + + + + | Closed | | Pulmonology | Diagnoses | Richey, | Arjun, | | | | | Cough | Kyle Dobbs, | Megha Mendoza, | | | | | Procedures | DO [address] | MD [address] | | | | | ME OFFICE | [address] | [address] | | | | | OUTPATIENT | [place], | [place], | | | | | [address] | [place] | [place] [address] | | | | | MINUTES | [address] | | | | | | | Phone: | | | | | | | [phone] | | | | | | | Fax: | | | | | | | [phone] | | +--------+--------+ + + + + Encounter Details +--------+---------+ + + + | Date | Type | Department | Care Team | Description | +--------+---------+ + + + | 02/24/ | Office | [facility] [place] | [place], | Chronic cough; COPD | | 2015 | Visit | PULMONARY [address] | Megha Mendoza MD | (chronic obstructive | | | | [place], | | pulmonary disease) | | | | [place] [address] | | ([facility]); RA | | | | [phone] | | (rheumatoid | | | | | | arthritis) ([facility]); | | | | | | Extrapulmonary TB | | | | | | (tuberculosis); | | | | | | Heartburn; DES | | | | | | (obstructive sleep | | | | | | apnea) | +--------+---------+ + + + Social History [...] + +---+---+ + + + | Comments: /k for 15 years restarted and quit again [...] + + + | Blood Pressure | 130/70 | 02/24/2015 2:07 PM | | | | | PDT | | + + + + + | Pulse | 92 | 02/24/2015 2:07 PM | | | | | PDT | | + + + + + | Temperature | - | - | | + + + + + | Respiratory Rate | 20 | 02/24/2015 2:07 PM | | | | | PDT | | + + + + + | Oxygen Saturation | 97% | 02/24/2015 2:07 PM | | | | | PDT | | + + + + + | Inhaled Oxygen | - | - | | | Concentration | | | | + + + + + | Weight | 98.4 kg (217 lb) | 02/24/2015 2:07 PM | | | | | PDT | | + + + + + | Height | 157.5 cm (5' 2") | 02/24/2015 2:07 PM | | | | | PDT | | + + + + + | Body Mass Index | 39.69 | 02/24/2015 2:07 PM | | | | | PDT | | + + + + + documented in this encounter Patient Instructions Patient Instructions Megha Díaz MD - 02/24/2015 3:56 PM PDTStart on omeprazole 20mg daily, 30 minutes before eating. If this is not covered, you can get it over the count er. Start on Spiriva one capsule inhaled daily. If this is not covered, let us know and we can find an alternative. Do an overnight oxygen test through [employer]. Call the [employer] before you pick i t up to make sure they have a box available. You will pick out hand a box at the [facility]. Do the test on room air. Wear the finger probe through the night and then return the box for a download the next day. Instructions for Avoidance of Reflux 1. Elevate the head of your bed about 5 inches, using a cinder block, or other device. 2. Avoid eating about 4 hours before bed. 3. Avoid lying down about 1 hour after eating. 4. Avoid drinking caffeine. 5. Avoid drinking alcohol. 6. Avoid eating fatty or spicy foods. 7. Your largest meal should be at breakfast or lunch, instead of dinner. 8. Avoid large bolus meals, and eat small amounts frequently throughout the day. 9. Weight loss is beneficial. documented in this encounter Progress Notes Megha Díaz MD - 02/24/2015 2:11 PM PDTFormatting of this note might be differe nt from the original. Pulmonary Consult Referring Provider: Kyle Richey DO HPI Jessie Pierson is a 50 y.o. female patient of Kyle Richey DO here today for evaluatio n of cough. She notes that she first started having troubles with cough in June. She notes she deve loped a cough out of the blue. She was not sick at the time, she just began to cough. She de scribes the cough as a choking cough, and she would lose her voice. She notes she got to a p oint where eating would make her choke. She was first seen by a doctor in [place], Dr. Fontaine, who treated her with antibiotics ( azithromycin), and some clear gel pills for the cough. Neither of these helped her cough. She transferred to Dr. Richey in , and was given azithromycin, prednisone and hydrocodone . She did get better briefly to some degree, but then her symptoms recurred. He then gave he r in October a course of doxycycline, another course of prednisone and a ProAir inhaler. Her co ugh got better, and was not as frequent, but did not go completely away. The ProAir she woul d use as needed when she choked really bad. She saw Dr. Richey again in December, and placed her on Symbicort. She used that more often a s she had gotten worse again, at least twice daily, 2 puffs. She used this for 2-3 weeks. Sh e then stopped this as it was not helping. Dr. Richey referred her here to be seen. Prior to having this cough, she had not had heartburn, but she does now. She now has heartb urn with anything she eats, even if it is not spicy. This started about 2 weeks ago. She has not had acid reflux. She has not had nasal congestion or runny nose. She does get shortness of breath, which she notes is since the cough started. Currently the y are able to walk at least 1 block at their own pace on level ground. She has difficulty wa lking up stairs, and has to stop after going up 5 stairs. One year ago, they feel that they could walk 5-6 blocks. She does not exercise regularly. She notes she coughs more often when she is at work, when she is counting money. The only o ther thing she notes that triggers it is eating or drinking. The only other treatments she has tried are those listed above and OTC cough drops. She is no longer using the ProAir or the Symbicort. She does snore in her sleep, loudly. She does snort, gasp and choke in her sleep. Her husba nd has noticed that she will stop breathing during time periods when she is snoring loudly. She does go to bed between 8-9pm and gets up around 4am. She wakes up every 2 hours. She wak es coughing, but not feeling like she is choking. She does feel tired during the day, but no t really before the cough started. She does not fall asleep during the day as she is at work , but does rarely fall asleep when she gets home. 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, + for TB, treated with DOT through [facility] Dept RA (rheumatoid arthritis) ([facility]) 2001 Pleural effusion 10/2011, 11/2011 secondary to RA?, negative for TB 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 PR (myocardial infarction) ([facility]) 11/2012 CAD (coronary artery disease) CKD (chronic kidney disease) Past Surgical History Past Surgical History Procedure Laterality Date Coronary angioplasty with stent placement 11/2012 [facility] Cholecystectomy Salpingectomy Left for ectopic Thoracentesis 11/09/2011, 12/09/2011, 01/2012 Tonsillectomy childhood Family History: Family History Problem Relation Age of Onset Diabetes Mother Diabetes Father Heart attack Father Diabetes Sister Arthritis Sister Social History: History Social History Marital Status: Single Spouse Name: N/A Number of Children: N/A Years of Education: N/A Occupational History [employer] Social History Main Topics Smoking status: Former Smoker -- 0.50 packs/day for 15 years Types: Cigarettes Quit date: 11/24/2012 Smokeless tobacco: Former User Quit date: 09/19/2011 Comment: 1/2pk for 15 years restarted and quit again 11/2012 Alcohol Use: No Drug Use: No Sexual Activity: None Other Topics Concern None Social History Narrative Lives: in [place] With: Grew up: [place], [place], [place], [place], [place], [place] Has previously lived in: the [place] and [place] Exposure to toxic chemicals: no Exposure to asbestos: no Exposure to tuberculosis: presumably yes Has had a PPD or Quantiferon before: yes Has pets at home: no Has ever owned birds: no Other animal exposures: no Hobbies: watching the TV Allergies: Allergies Allergen Reactions Clopidogrel Codeine Medications: Outpatient Encounter Prescriptions as of 02/24/2015 Medication Sig Dispense Refill Adalimumab (HUMIRA PEN SC) Inject under the skin. [DISCONTINUED] albuterol (PROAIR HFA) 90 mcg/puff inhaler Inhale 2 puffs into the lungs . [DISCONTINUED] docusate sodium (COLACE) 100 mg capsule Take 100 mg by mouth [address] [DISCONTINUED] doxycycline (VIBRAMYCIN) 100 mg capsule Take 100 mg by mouth 2 [address] [place]im[place]lee ly. [DISCONTINUED] fluconazole (DIFLUCAN) 150 mg tablet Take 150 mg by mouth once. [DISCONTINUED] hydrocortisone (ANUSOL-HC) [address] 25 mg rectally EVERY 4 TO 6 HOURS NEEDED (EVERY 4-6 HOURS NEEDED). No facility-administered encounter medications on file as of 02/24/2015. Review of Systems: General: []Weight loss/gain (over 10 lbs) []Fever/chills/sweats []Night sweats Hematologic: []Bleeding/bruising tendencies []History of blood transfusion []Anemia []Enlarged lymph no cong EENT: []Hearing loss []Vision loss/change []Sinus congestion/nasal drainage []Nosebleeds [x ]Hoarseness Cardiac: []Chest pain []Palpitations/heart racing [x]Swelling of legs/ankles []Waking up at night short of breath []Difficulty sleeping flat Gastrointestinal: []Nausea/vomiting [x]Difficulty swallowing [x]Heartburn/acid reflux []Loss of appetite []A bdominal pain Musculoskeletal: [x]Joint stiffness/swelling [x]Joint pain []Back pain [x]Arthritis- They just changed the d [place] of her medication and her arthritis is better, no change in her cough []Gout Urologic: []Blood in urine [x]Frequent urination at night []Burning/painful urination []Difficulty wi th urination Neurological: []Headaches []Seizures []Memory loss or confusion []Numbness or tingling in feet or hands Psychiatric: []Depression []Anxiety/panic attacks []Suicidal ideation Sleep: []Difficulty falling asleep [x]Waking up at night frequently [x]Snoring []Stop breathing in their sleep [x]Fall asleep frequently, or excessively tired Objective BP 130/70 mmHg | Pulse 92 | Resp 20 | Ht 1.575 m (5' 2") | Wt 98.431 kg (217 lb) | BMI 39.6 8 kg/m2 | SpO2 97% | LMP 02/04/2015 | ? No General Appearance: Alert, cooperative, no distress, appears stated age Head: Normocephalic, without obvious abnormality, atraumatic Eyes: PERRL, conjunctiva clear, no scleral icterus, EOM's intact Ears: Normal TM's, external auditory canals, normal acuity Nose: Nares normal, septum midline, mucosa normal Mouth: No oral lesions or exudate, palate deformity Neck: Supple, symmetrical, no adenopathy Lungs: No accessory muscle use, breath sounds are slightly diminished bilaterally with pr olongation of the expiratory phase, no wheezes, crackles or rhonchi Chest Wall: No deformity Heart: Regular rate and rhythm, no murmur, rub or gallop Abdomen: Soft, non-tender, non-distended Extremities: No cyanosis, clubbing, or edema Pulses: Radial pulses 2+ and symmetric Skin: Warm and dry Lymph nodes: Cervical and supraclavicular nodes normal Data: Chest x-ray done July 12, 2014 was reviewed and interpreted in clinic today. It shows diaph ragm flattening concerning for obstructive lung disease. Chest CT scan done September 13, 2014 was reviewed and interpreted in clinic today. It shows mild emphysematous change, mild central airway thickening, coronary artery calcifications. Pulmonary function tests were performed prior to clinic today and were reviewed and interpr eted in clinic today. They show mild restrictive physiology on spirometry, obstructive phys iology on lung volume testing and a moderately reduced diffusion capacity. Labs: Ref. Range 09/08/2014 00:00 WBC, External Latest Range: 4.3-11 13.3 (A) RBC, External Latest Range: 4.2-5.4 5.13 HGB, External Latest Range: 12-16 10.3 (A) HCT, External Latest Range: 38-47 34 (A) MCV, External Latest Range: 82-100 66 (A) MCH Latest Range: 26.0-33.0 pg 20.1 (A) MCHC Latest Range: 31.0-36.0 % 30.3 (A) RDW, External Latest Range: 11.5-16 20.1 (A) PLT, External Latest Range: 150-375 291 PLT COMMENT No range found Normal MPV Latest Range: 0.0-12.0 fL 9.4 HYPOCHROMIA Latest Range: (none) Slight (A) RBC morphology No range found abnormal Sodium, External Latest Range: 135-145 137 Potassium, External Latest Range: 3.6-5 3.9 Carbon Dioxide, External Latest Range: 21-31 22 Chloride, External Latest Range: 98-107 108 (A) ANION GAP Latest Range: 3-12 mmol/L 7 Glucose, External Latest Range: 70-100 177 (A) BUN, External Latest Range: 7-18 32 (A) Bun/Creatinine No range found 17.58 Creatinine, External Latest Range: 0.6-1.3 1.8 (A) Albumin, External Latest Range: 3.5-5 3.8 Calcium, External Latest Range: 8.4-10.5 9.1 ALP, External Latest Range: 32-92 50 ALT, External Latest Range: 10-48 20 AST, External Latest Range: 10-42 22 Bilirubin, Total, External Latest Range: 0.2-1.2 0.7 Protein, Total, External Latest Range: 6-8.1 7.5 eGFR, External Latest Range: 60-99873 29 (A) [facility] records were reviewed. Kyle Richey DO's notes were reviewed in clinic today. Immunization History Administered Date(s) Administered INFLUENZA, TRIVALENT PRESERVATIVE FREE (PED/ADOL/ADULT) 02/09/2014 Assessment 1. Chronic cough - I suspect this is most likely related to mild COPD, with emphysema and c hronic bronchitis. She may also now have a component of heartburn to her symptoms. 2. COPD (chronic obstructive pulmonary disease) (HCC) - CT scan and PFTs show evidence of m ild emphysema. We will start her on a LAAC to see if this helps her cough. 3. RA (rheumatoid arthritis) (HCC) - No signs of RA associated lung disease on CT scan. 4. 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 She did complete a course of DOT. 5. Heartburn- She has developed symptoms of heartburn since developing her cough. We will s tart her on treatment for this, and we also 6. DES (obstructive sleep apnea)- Symptoms raise concern for possible DES. We addressed thi s, but will deal with other issues before referring for sleep study. Plan 1. Start on omeprazole 20mg daily, 30 minutes before eating. 2. Start on Spiriva one capsule inhaled daily. 3. Check overnight oximetry on room air. 4. Lifestyle modification instructions for avoidance of reflux provided. She was advised to call if new pulmonary symptoms were to develop. Return to clinic in 8 weeks, or sooner with concerns. CC: Kyle Richey, Portions of this report were transcribed using voice recognition software. Every effort wa s made to ensure accuracy; however, inadvertent computerized mohs surgeon errors may be pre sent. documented in t his encounter Plan of Treatment + + +--------+ + + | Name | Type | Priori | Associated Diagnoses | Order Schedule | | | | ty | | | + + +--------+ + + | Overnight oximetry, | Respiratory | Routin | COPD (chronic | Expected: | | room air | Care | e | obstructive | 02/24/2015, Expires: | | | | | pulmonary disease) | 02/24/2016 | | | | | ([facility]) | | + + +--------+ + + documented as of this encounter Procedures + +--------+ + + + | Procedure Name | Priori | Date/Time | Associated Diagnosis | Comments | | | ty | | | | + +--------+ + + + | IMAGING REPORT - | | 09/13/2014 | | | | EXTERNAL SCAN | | 12:00 AM | | | | | | PDT | | | + +--------+ + + + | LABS - EXTERNAL SCAN | | 09/08/2014 | | | | | | 12:00 AM | | | | | | PDT | | | + +--------+ + + + | IMAGING REPORT - | | 12/05/2011 | | | | EXTERNAL SCAN | | 12:00 AM | | | | | | PDT | | | + +--------+ + + + | IMAGING REPORT - | | 11/09/2011 | | | | EXTERNAL SCAN | | 12:00 AM | | | | | | PDT | | | + +--------+ + + + | PATHOLOGY - EXTERNAL | | 11/09/2011 | | | | SCAN | | 12:00 AM | | | | | | PDT | | | + +--------+ + + + | LABS - EXTERNAL SCAN | | 11/09/2011 | | | | | | 12:00 AM | | | | | | PDT | | | + +--------+ + + + documented in this encounter Visit Diagnoses + + | Diagnosis | + + | Chronic cough Cough | + + | COPD (chronic obstructive pulmonary disease) (HCC) Chronic airway obstruction, not | | elsewhere classified | + + | RA (rheumatoid arthritis) (HCC) Rheumatoid arthritis | + + | Extrapulmonary TB (tuberculosis) Tuberculosis of other specified organs, confirmation | | unspecified | + + | Heartburn | + + | DES (obstructive sleep apnea) Obstructive sleep apnea (adult) (pediatric) | + + documented in this encounter
--- OUTSIDE RECORDS SUMMARY | ~2019-11-29 | XMS | Encounter Summary ---
Demographics + + + | Address | [address] | | | [place] [address] | + + + | Home Phone | | + + + | Preferred Language | Unknown | + + + | Marital Status | | + + + | Jainism Affiliation | Unknown | + + + | Race | Unknown | + + + | Ethnic Group | Unknown | + + + Author + + + | Author | [facility] | | | and [place] | + + + | Organization | [facility] | | | [...] Team Providers + +------+ + | Care Leak Inspector Name | Role | Phone | + +------+ + PCP | Unavailable | + +------+ + Reason for Visit + + + | Reason | Comments | + + + | Chest Pain | | + + + Encounter Details +--------+ + + + + | Date | Type | Department | Care Team | Description | +--------+ + + + + | 06/15/ | Emergency | [facility] | Cash Isaacs, | Atypical chest pain | | 2016 | | [facility] | MD [address] | (Primary Dx) | | | | CENTER [address] | [facility] [place] | | | | | [place], [place] | [place] [address] | | | | | [address] | [phone] | | | | | [phone] | | | +--------+ + + + + Social History + +-------+ +--------+------+ | Tobacco Use | Types | Packs/Day | Years | Date | | | | | Used | | + +-------+ +--------+------+ | Never Smoker | | | | | + +-------+ +--------+------+ + +---+---+---+ | Smokeless Tobacco: | [...] + + + | Blood Pressure | 142/82 | 06/15/2015 8:28 PM | | | | | PST | | + + + + + | Pulse | 89 | 06/15/2015 8:25 PM | | | | | PST | | + + + + + | Temperature | 37.8 C (100.1 F) | 06/15/2015 6:56 PM | | | | | PST | | + + + + + | Respiratory Rate | 17 | 06/15/2015 8:25 PM | | | | | PST | | + + + + + | Oxygen Saturation | 96% | 06/15/2015 8:25 PM | | | | | PST | | + + + + + | Inhaled Oxygen | - | - | | | Concentration | | | | + + + + + | Weight | 99.8 kg (220 lb) | 06/15/2015 6:56 PM | | | | | PST | | + + + + + | Height | 157.5 cm (5' 2") | 06/15/2015 6:56 PM | | | | | PST | | + + + + + | Body Mass Index | 40.24 | 06/15/2015 6:56 PM | | | | | PST | | + + + + + documented in this encounter Discharge Instructions Instructions Cash Isaacs MD - 06/15/2015Nostanislaw for pain Zofran for nausea Recheck tomorrow if not improved Return immediately if worse Follow-up with your primary care doctor in 1 week AttachmentsThe following attachments cannot be sent through Care Everywhere.CHEST PAIN, UNC ERTAIN CAUSE (PORTUGUESE)documented in this encounter Medications at Time of Discharge + + + +---------+ + + | Medication | Sig | Dispensed | Refills | Start | End Date | | | | | | Date | | + + + +---------+ + + | Adalimumab (HUMIRA | Inject under the | | 0 | | | | PEN SC) | skin. | | | | 6 | + + + +---------+ + + | adalimumab (HUMIRA | Inject 0.8ml under | | 0 | 02/10/20 | | | PEN) 40 mg/0.8 mL | the skin every 7 | | | 15 | 6 | | injection (pen) | days. | | | | | + + + +---------+ + + | Adalimumab (HUMIRA | Inject under the | | 0 | | | | SC) | skin. | | | | 6 | + + + +---------+ + + | | Take 1-2 tablets by | 16 | 0 | 06/15/19 | | | HYDROcodone-acetamin | mouth every 6 hours | tablet | | 16 | 6 | | ophen (NORCO) 5-325 | as needed for Pain. | | | | | | mg per tablet | | | | | | + + + +---------+ + + | lidocaine | Cut and fit to | | 0 | 01/25/20 | | | (LIDODERM) 5% patch | painful areas. Apply | | | 15 | 6 | | | 12 hours on and 12 | | | | | | | hours off. | | | | | + + + +---------+ + + | omeprazole | Take 1 capsule by | 30 | 11 | 02/25/20 | | | (PRILOSEC) 20 mg | mouth every morning | capsule | | 15 | 6 | | capsule | (before breakfast). | | | | | + + + +---------+ + + | ondansetron | Take 1 tablet by | 12 | 0 | 06/15/19 | | | (ZOFRAN ODT) 4 mg | mouth every 8 hours | tablet | | 16 | 6 | | disintegrating | as needed for up to | | | | | | tablet | 12 doses. | | | | | + + + +---------+ + + | tiotropium | Inhale 1 capsule | 30 | 11 | 02/25/20 | | | (SPIRIVA HANDIHALER) | into the lungs | capsule | | 15 | 6 | | 18 mcg inhalation | Daily. | | | | | | capsule | | | | | | + + + +---------+ + + documented as of this encounter Gaurang Fletcher RN - 06/15/2015 11:32 PM PSTDischarged home in stable condition.Electronic ally signed by Gaurang Torres RN at 06/15/2015 11:32 PM Cash Brannon MD - 06/15/19 16 7:05 PM PST [facility] Jessie Casarez Emergency Department Encounter Note [address] [place] [id number] PCP:Pacheco Castillo MD [phone] CHIEF COMPLAINT Chief Complaint Patient presents with Chest Pain HPI Jessie Casarez is a 50 y.o. female who presents to the emergency department with chest adina n. This patient reports a sharp midsternal chest pain that radiates through to her back. S he rates it as 8 out of 10 in intensity. It radiates to the left shoulder. A little bit sh ort of breath. A little nausea. Very anxious. She does not have nitro at home. This epis ode occurred while she was eating dinner. She did not choke on anything or have trouble swa llowing. No recent cough or cold symptoms. She had 2 cardiac st[place] She is providing her own history. She came in by private auto. PAST MEDICAL HISTORY Past Medical History Diagnosis Date Rheumatoid arthritis (HCC) Tubal SURGICAL HISTORY Past Surgical History Procedure Laterality Date Cardiac surgery pt reports two stents Tonsillectomy CURRENT MEDICATIONS Previous Medications ADALIMUMAB (HUMIRA SC) Inject under the skin. ALLERGIES No Known Allergies FAMILY HISTORY No family history on file. SOCIAL HISTORY History Social History Marital Status: Spouse Name: N/A Number of Children: N/A Years of Education: N/A Social History Main Topics Smoking status: Never Smoker Smokeless tobacco: Never Used Alcohol Use: No Drug Use: No Sexual Activity: None Other Topics Concern None Social History Narrative None REVIEW OF SYSTEMS All systems reviewed and found negative except what is in the HPI PHYSICAL EXAM VITAL SIGNS: BP 216/110 mmHg | Pulse 115 | Temp(Src) 37.8 C (100.1 F) (Oral) | Resp 24 | Ht 1.575 m (5' 2") | Wt 99.791 kg (220 lb) | BMI 40.23 kg/m2 | SpO2 99% | LMP 06/06/2015 Constitutional: Well developed, Well nourished, moderate to severe acute distress, Non-tox ic appearance. Anxious and tearful. HENT: Normocephalic, Atraumatic, Bilateral external ears normal, Mucous membranes are radha st, Nasal mucosa is normal. Oral pharynx is clear. Eyes: PERRL, EOMI, Conjunctiva normal, No discharge. Palpebral conjunctiva are pink. Neck: Normal range of motion, No tenderness, Supple, No stridor. Respiratory: Clear to auscultation bilaterally, No respiratory distress, No wheezing Chest: Non tender, no signs of trauma Cardiovascular: Tachycardic, Normal rhythm GI: Soft, epigastric tenderness, No peritoneal signs, No masses Extremities: Warm and well perfused, no edema, no joint swelling or deformity. Good ROM. Back: No CVAT, No tenderness of the thoracic or lumbar spine. Skin: Warm, Dry, No erythema, No induration, No rash. Neurologic: Alert & oriented x 3, No focal motor or sensory deficits. Speech is clear. G ait is not tested by me initially. EKG Twelve-lead EKG shows sinus tachycardia 110 bpm. Left axis deviation. Good R wave progres stella. No pathologic Q waves. No acute ST elevation or depression. ME interval is 132. QR S mormon is 76. QT corrected is 452. R axis is -40. This is an abnormal EKG. RADIOLOGY Portable chest x-ray shows no acute cardiopulmonary disease CT pulmonary angiography: IMPRESSION: No evidence of pulmonary embolism or other acute intrathoracic findings. Bedside US: Her GB is contracted. ED COURSE & MEDICAL DECISION MAKING Pertinent Labs & Imaging studies reviewed. (See chart for details) The patient was seen and examined shortly after arriving in the emergency department. Hist ory and physical were obtained, vital signs were noted. This patient presented with subster nal chest pain eating reading through to her back. She said it feels like when she had hear t trouble. EKG does not show acute ischemia. Initial troponin is normal at 0.02. The pain is sharp. D-dimer was mildly elevated. She was hydrated and then received a CTA that show s no PE or other acute intrathoracic findings, particularly a normal aorta. On reexaminatio n she is now having tenderness in the right upper quadrant of her abdomen. I reviewed her l iver enzyme tests and bilirubin. There are normal. On bedside ultrasound I'm unable to see the gallbladder. I added a lipase to her labs. A repeat troponin was obtained. Lipase is normal. She was given Dilaudid. The etiology of the elevated WBC count is unclear, but ma y be pain related. Her BP responded to a single dose of metoprolol. The repeat troponin is unchanged at 0.02. I will prescribe pain medicine. Recheck tomorrow with her primary care provider. Return immediately if symptoms worsen. FINAL IMPRESSION 1. Atypical chest pain PLAN Follow-up Information Follow up with Pacheco Castillo MD In 1 week. Specialty: Rheumatology Contact information: [address] [facility] [place] [id number] New Prescriptions HYDROCODONE-ACETAMINOPHEN (NORCO) 5-325 MG PER TABLET Take 1-2 tablets by mouth every 6 hours as needed for Pain. ONDANSETRON (ZOFRAN ODT) 4 MG DISINTEGRATING TABLET Take 1 tablet by mouth every 8 hour s as needed for up to 12 doses. Cash Isaacs MD 06/15/15 [id number] docume nted in this encounter Miscellaneous Notes ED Triage Notes - Jania Zuleta RN - 06/15/2015 6:55 PM PSTPatient reports midste rnal 8/10 chest pain onset one hour ago accompanied by nausea and anxiety, shortness of johnnie th. Pt reports history of two stents in 2012. documented in this encounter Plan of Treatment Not on filedocumented as of this encounter Procedures + +--------+ + + + | Procedure Name | Priori | Date/Time | Associated Diagnosis | Comments | | | ty | | | | + +--------+ + + + | TROPONIN I | STAT | 06/15/2015 | | Results for this | | | | 9:52 PM | | procedure are in the | | | | PST | | results section. | + +--------+ + + + | CT ANGIOGRAM | STAT | 06/15/2015 | | Results for this | | PULMONARY | | 9:03 PM | | procedure are in the | | | | PST | | results section. | + +--------+ + + + | INFLUENZA A AND B | Routin | 06/15/2015 | | Results for this | | RNA, NAAT | e | 7:52 PM | | procedure are in the | | | | PST | | results section. | + +--------+ + + + | XR CHEST AP PORTABLE | STAT | 06/15/2015 | | Results for this | | | | 7:45 PM | | procedure are in the | | | | PST | | results section. | + +--------+ + + + | EXTRA LAVENDER TOP | Routin | 06/15/2015 | | Results for this | | TUBE | e | 6:59 PM | | procedure are in the | | | | PST | | results section. | + +--------+ + + + | EXTRA GREEN TOP TUBE | Routin | 06/15/2015 | | Results for this | | | e | 6:59 PM | | procedure are in the | | | | PST | | results section. | + +--------+ + + + | EXTRA GREEN TOP TUBE | Routin | 06/15/2015 | | Results for this | | | e | 6:59 PM | | procedure are in the | | | | PST | | results section. | + +--------+ + + + | EXTRA GOLD TOP TUBE | Routin | 06/15/2015 | | Results for this | | | e | 6:59 PM | | procedure are in the | | | | PST | | results section. | + +--------+ + + + | EXTRA BLUE TOP TUBE | Routin | 06/15/2015 | | Results for this | | | e | 6:59 PM | | procedure are in the | | | | PST | | results section. | + +--------+ + + + | ECG 12 LEAD | STAT | 06/15/2015 | | Results for this | | | | 6:57 PM | | procedure are in the | | | | PST | | results section. | + +--------+ + + + | TROPONIN I | STAT | 06/15/2015 | | Results for this | | | | 6:49 PM | | procedure are in the | | | | PST | | results section. | + +--------+ + + + | D-DIMER | STAT | 06/15/2015 | | Results for this | | | | 6:49 PM | | procedure are in the | | | | PST | | results section. | + +--------+ + + + | CBC WITH | STAT | 06/15/2015 | | Results for this | | DIFFERENTIAL | | 6:49 PM | | procedure are in the | | | | PST | | results section. | + +--------+ + + + | LIPASE | Add-On | 06/15/2015 | | Results for this | | | | 6:49 PM | | procedure are in the | | | | PST | | results section. | + +--------+ + + + | COMPREHENSIVE | STAT | 06/15/2015 | | Results for this | | METABOLIC PANEL | | 6:49 PM | | procedure are in the | | | | PST | | results section. | + +--------+ + + + documented in this encounter Results Troponin I (06/15/2015 9:52 PM PST) + + + + + + | Component | Value | Ref Range | Performed | Pathologist | | | | | At | Signature | + + + + + + | Troponin I | 0.02Comment: Reference | <0.06 ng/mL | [facility] | | | | Ranges:0.00-0.06 = | | [facility] | | | | NORMAL>0.06 = | | MEDICAL | | | | SUSPICIOUS FOR | | CENTER - | | | | MYOCARDIAL DAMAGE NOTE: | | LABORATORY | | | | Values greater than 0.50 | | | | | | ng/mL have been shown | | | | | | to be strongly | | | | | | associated with acute | | | | | | myocardial infarction. | | | | | | The [employer] | | | | | | Cardiology (ACC) | | | | | | recommends a decision | | | | | | limit of 0.06 ng/mL for | | | | | | this assay. Results | | | | | | greater than 0.06 can | | | | | | reflect a pre-infarct | | | | | | acute coronary syndrome, | | | | | | but can also reflect | | | | | | myocardial necrosis or | | | | | | injury that is not due | | | | | | to coronary artery | | | | | | disease. Some of these | | | | | | causes are sepsis, | | | | | | hypocolemia, atrial | | | | | | fibrillation, heart | | | | | | failure, pulmonary | | | | | | embolism, myocarditis, | | | | | | myocardial contusion, | | | | | | and renal failure. The | | | | | | diagnosis of myocardial | | | | | | infarction should be | | | | | | based on a combination | | | | | | of the patient's | | | | | | clinical presentation | | | | | | and the clinical | | | | | | laboratory test results | | | | | | (especially serial | | | | | | troponin levels). | | | | + + + + + + + + | Specimen | + + | Blood | + + + + + + + | Performing | Address | City/State[facility] | Phone Number | | Organization | | | | + + + + + | [facility] | [address] | [place] | [phone] | | [facility] | | [address] | | | - LABORATORY | | | | + + + + + CT Angiogram Pulmonary (06/15/2015 9:03 PM PST) + + | Specimen | + + | | + + + + + | Narrative | Performed At | + + + | EXAM: CT PULMONARY ANGIOGRAM 06/15/2015 12:00 AM HISTORY: | [facility] | | Chest pain, rule out pulmonary embolism COMPARISON: Chest x-ray | | | performed the same day. TECHNIQUE: Axial images are performed | | | through the chest following the uneventful intravenous administration | | | of 60 mL Omnipaque-350 contrast, with timing of the contrast bolus | | | optimized for opacification of the pulmonary arteries. Multiplanar | | | reformations are also performed. DOSE: DLP 509.71 mGy-cm | | | FINDINGS: Pulmonary arteries: The pulmonary arteries are well | | | opacified. The average Hounsfield units are about 330. The bolus | | | is homogeneous. There are no filling defects to suggest pulmonary | | | embolism. Borderline prominence of the main pulmonary artery | | | measuring 2.8 cm. No evidence for right heart strain. Heart and | | | mediastinum: No significant cardiac chamber enlargement or pericardial | | | thickening. No pneumomediastinum. No mediastinal or hilar | | | lymphadenopathy. There is no aneurysmal dilatation of the thoracic | | | aorta. Dissection cannot be excluded given the timing of the | | | contrast bolus. Lungs: There is a background of mild emphysema. | | | There are no areas of consolidation or other airspace disease. No | | | pleural effusions. No pneumothorax. No significant pulmonary | | | nodules. Chest wall: No axillary or visible supraclavicular | | | lymphadenopathy. Upper abdomen: Limited imaging of the upper | | | abdomen is unremarkable. Bones: No lytic or blastic bone lesions. | | | No acute osseous abnormalities. Scattered mild thoracic | | | spondylosis. IMPRESSION - No evidence for pulmonary embolism. | | | No acute process in the chest. The preliminary report is | | | provided by Dr. Pearce on June 15, 2015 at 9:18 PM. Dictated | | | and Signed by: Eddie Menchaca MD Electronically signed: 06/16/2015 | | | 7:45 AM | | + + + + + | Procedure Note | + + | Robin, Rad Results In - 06/16/2015 7:48 AM PST EXAM: CT PULMONARY ANGIOGRAM 06/15/2015 | | 12:00 AM HISTORY: Chest pain, rule out pulmonary embolism COMPARISON: Chest x-ray | | performed the same day. TECHNIQUE: Axial images are performed through the chest | | following the uneventfulintravenous administration of 60 mL Omnipaque-350 contrast, with | | timing of thecontrast bolus optimized for opacification of the pulmonary | | arteries.Multiplanar reformations are also performed.DOSE: DLP 509.71 mGy-cmFINDINGS: | | Pulmonary arteries: The pulmonary arteries are well opacified. The averageHounsfield | | units are about 330. The bolus is homogeneous. There are no fillingdefects to suggest | | pulmonary embolism. Borderline prominence of the mainpulmonary artery measuring 2.8 cm. | | No evidence for right heart strain.Heart and mediastinum: No significant cardiac | | chamber enlargement or pericardialthickening. No pneumomediastinum. No mediastinal or | | hilar lymphadenopathy. There is no aneurysmal dilatation of the thoracic aorta. | | Dissection cannot beexcluded given the timing of the contrast bolus.Lungs: There is a | | background of mild emphysema. There are no areas ofconsolidation or other airspace | | disease. No pleural effusions. Nopneumothorax. No significant pulmonary nodules.Chest | | wall: No axillary or visible supraclavicular lymphadenopathy.Upper abdomen: Limited | | imaging of the upper abdomen is unremarkable.Bones: No lytic or blastic bone lesions. | | No acute osseous abnormalities. Scattered mild thoracic spondylosis. IMPRESSION -No | | evidence for pulmonary embolism.No acute process in the chest.The preliminary report is | | provided by Dr. Pearce on June 15, 2015 at 9:18PM.Dictated and Signed by: Eddie Tejeda | | MD Bernarda Electronically signed: 06/16/2015 7:45 AM | |thickening. No pneumomediastinum. No mediastinal or hilar lymphadenopathy. | |There is no aneurysmal dilatation of the thoracic aorta. Dissection cannot be | |excluded given the timing of the contrast bolus. | | | |Lungs: There is a background of mild emphysema. There are no areas of | |consolidation or other airspace disease. No pleural effusions. No | |pneumothorax. No significant pulmonary nodules. | | | |Chest wall: No axillary or visible supraclavicular lymphadenopathy. | | | |Upper abdomen: Limited imaging of the upper abdomen is unremarkable. | | | |Bones: No lytic or blastic bone lesions. No acute osseous abnormalities. | |Scattered mild thoracic spondylosis. | | | |IMPRESSION - | | | |No evidence for pulmonary embolism. | | | |No acute process in the chest. | | | |The preliminary report is provided by Dr. Pearce on June 15, 2015 at 9:18 | |PM. | | | |Dictated and Signed by: Eddie Menchaca MD | | Electronically signed: 06/16/2015 7:45 AM | + + + +---------+ + + | Performing | Address | City/State/Zipcode | Phone Number | | Organization | | | | + +---------+ + + | [facility] | | | | + +---------+ + + Influenza A and B RNA, NAAT (06/15/2015 7:52 PM PST) + + + + + + | Component | Value | Ref Range | Performed | Pathologist | | | | | At | Signature | + + + + + + | Influenza A | Negative | Negative | [facility] | | | PCR | | | [facility] | | | | | | MEDICAL | | | | | | CENTER - | | | | | | LABORATORY | | + + + + + + | Influenza B | Negative | Negative | [facility] | | | PCR | | | [facility] | | | | | [facility] | | | | | | [facility] - | | | | | | LABORATORY | | + + + + + + + + | Specimen | + + | Respiratory - Entire | | nasopharynx (body | | structure) | + + + + + + + | Performing | Address | City/State/Zipcode | Phone Number | | Organization | | | | + + + + + | [facility] | [address] | [place] | [phone] | | [facility] | | [address] | | | - LABORATORY | | | | + + + + + XR Chest AP Portable (06/15/2015 7:45 PM PST) + + | Specimen | + + | | + + + + + | Narrative | Performed At | + + + | XR CHEST AP PORTABLE 06/15/2015 7:45 PM HISTORY: CHEST PAIN. | [facility] | | COMPARISON: CTA chest 06/15/2015. Findings: Heart size is at the | | | upper limits of normal. Aorta is normal. Mediastinum is unremarkable. | | | Central pulmonary vasculature is normal. The bilateral lungs are | | | clear with no evidence for pleural effusion or pneumothorax. There are | | | no acute osseous abnormalities. IMPRESSION - No acute findings. | | | Dictated and Signed by: Davian Hernandez MD Electronically | | | signed: 06/16/2015 10:03 AM | | + + + + + | Procedure Note | + + | Robin, Jayme Results In - 06/16/2015 10:06 AM PST XR CHEST AP PORTABLE 06/15/2015 7:45 PM | | | | HISTORY: CHEST PAIN. | | | | COMPARISON: CTA chest 06/15/2015. | | | | Findings: | | Heart size is at the upper limits of normal. Aorta is normal. Mediastinum is | | unremarkable. Central pulmonary vasculature is normal. The bilateral lungs are | | clear with no evidence for pleural effusion or pneumothorax. There are no acute | | osseous abnormalities. | | | | IMPRESSION - | | No acute findings. | | | | Dictated and Signed by: Davian Hernandez MD | | Electronically signed: 06/16/2015 10:03 AM | + + + +---------+ + + | Performing | Address | City/State/Zipcode | Phone Number | | Organization | | | | + +---------+ + + | [facility] | | | | + +---------+ + + Extra Green Top Tube (06/15/2015 6:59 PM PST) + +-------+ + + + | Component | Value | Ref Range | Performed | Pathologist | | | | | At | Signature | + +-------+ + + + | Extra Green | Done | | [facility] | | | Top Tube | | | [facility] | | | | | | MEDICAL | | | | | | CENTER - | | | | | | LABORATORY | | + +-------+ + + + + + | Specimen | + + | Blood | + + + + + + + | Performing | Address | City/State/Zipcode | Phone Number | | Organization | | | | + + + + + | [facility] | [address] | [place] | [phone] | | [facility] | | [address] | | | - LABORATORY | | | | + + + + + Extra Gold Top Tube (06/15/2015 6:59 PM PST) + +-------+ + + + | Component | Value | Ref Range | Performed | Pathologist | | | | | At | Signature | + +-------+ + + + | Extra Gold | Done | | [facility] | | | Top Tube | | | [facility] | | | | | | MEDICAL | | | | | | CENTER - | | | | | | LABORATORY | | + +-------+ + + + + + | Specimen | + + | Blood | + + + + + + + | Performing | Address | City/State/Zipcode | Phone Number | | Organization | | | | + + + + + | [facility] | [address] | [place] | [phone] | | [facility] | | [address] | | | - LABORATORY | | | | + + + + + Extra Lavender Top Tube (06/15/2015 6:59 PM PST) + +-------+ + + + | Component | Value | Ref Range | Performed | Pathologist | | | | | At | Signature | + +-------+ + + + | Extra | Done | | [facility] | | | Lavender | | | [facility] | | | Top Tube | | | MEDICAL | | | | | | CENTER - | | | | | | LABORATORY | | + +-------+ + + + + + | Specimen | + + | Blood | + + + + + + + | Performing | Address | City/State/Zipcode | Phone Number | | Organization | | | | + + + + + | [facility] | [address] | [place] | [phone] | | [facility] | | [address] | | | - LABORATORY | | | | + + + + + Extra Green Top Tube (06/15/2015 6:59 PM PST) + +-------+ + + + | Component | Value | Ref Range | Performed | Pathologist | | | | | At | Signature | + +-------+ + + + | Extra Green | Done | | [facility] | | | Top Tube | | | [facility] | | | | | | MEDICAL | | | | | | CENTER - | | | | | | LABORATORY | | + +-------+ + + + + + | Specimen | + + | Blood | + + + + + + + | Performing | Address | City/State/Zipcode | Phone Number | | Organization | | | | + + + + + | [facility] | [address] | [place] | [phone] | | [facility] | | [address] | | | - LABORATORY | | | | + + + + + Extra Blue Top Tube (06/15/2015 6:59 PM PST) + +-------+ + + + | Component | Value | Ref Range | Performed | Pathologist | | | | | At | Signature | + +-------+ + + + | Extra Blue | Done | | [facility] | | | Top Tube | | | [facility] | | | | | | MEDICAL | | | | | | CENTER - | | | | | | LABORATORY | | + +-------+ + + + + + | Specimen | + + | Blood | + + + + + + + | Performing | Address | City/State/Zipcode | Phone Number | | Organization | | | | + + + + + | [facility] | [address] | [place] | [phone] | | [facility] | | [address] | | | - LABORATORY | | | | + + + + + ECG 12 lead (06/15/2015 6:57 PM PST) + + + + + + | Component | Value | Ref Range | Performed | Pathologist | | | | | At | Signature | + + + + + + | VENTRICULAR | 110 | BPM | [facility] | | | RATE EKG | | | | | + + + + + + | ATRIAL RATE | 110 | BPM | [facility] | | + + + + + + | P-R | 132 | ms | [facility] | | | INTERVAL | | | | | + + + + + + | QRS | 76 | ms | [facility] | | | DURATION | | | | | + + + + + + | Q-T | 334 | ms | [facility] | | | INTERVAL | | | | | + + + + + + | Q-T | 452 | ms | [facility] | | | INTERVAL | | | | | | (CORRECTED) | | | | | + + + + + + | P WAVE AXIS | 58 | degrees | [facility] | | + + + + + + | QRS AXIS | -40 | degrees | [facility] | | + + + + + + | T AXIS | 88 | degrees | [facility] | | + + + + + + | INTERPRETAT | Sinus tachycardiaLeft | | [facility] | | | ION TEXT | axis deviationAbnormal | | | | | | ECGNo previous ECGs | | | | | | availableConfirmed by | | | | | | ALVA FLYNN MD ([id number]) | | | | | | on 06/16/2015 8:05:36 AM | | | | + + [...] | | | + +---------+ + + Lipase (06/15/2015 6:49 PM PST) + +-------+ + + + | Component | Value | Ref Range | Performed | Pathologist | | | | | At | Signature | + +-------+ + + + | Lipase | 41 | 0 - 60 U/L | [facility] | | | | [facility] | | | [facility] | [facility] | | | | | | [facility] - | | | | | | LABORATORY | | + +-------+ + + + + + | Specimen | + + | Blood | + + + + + + + | Performing | Address | City/State/Zipcode | Phone Number | | Organization | | | | + + + + + | [facility] | [address] | [place] | [phone] | | [facility] | | [address] | | | - LABORATORY | | | | + + + + + D-Dimer (06/15/2015 6:49 PM PST) + + + + + + | Component | Value | Ref Range | Performed | Pathologist | | | | | At | Signature | + + + + + + | D-Dimer | 0.66 (H)Comment: This | <=0.50 ug/ml | [facility] | | | Quantitativ | quantitative D-Dimer | | [facility] | | | e | assay has been evaluated | | MEDICAL | | | | for screening for | | CENTER - | | | | venous thrombotic | | LABORATORY | | | | disease, and may be | | | | | | useful in ruling out, | | | | | | but not ruling in | | | | | | disease. Values less | | | | | | than 0.50 ug/mL FEU | | | | | | (Fibrinogen Equivalent | | | | | | Units) have a negative | | | | | | predictive value of | | | | | | approximately 95% for | | | | | | ruling out large | | | | | | pulmonary emboli or | | | | | | proximal deep vein | | | | | | thrombosis. Distal DVT | | | | | | are not excluded. An | | | | | | elevated D-dimer can be | | | | | | present in patients with | | | | | | liver disease, | | | | | | , eclampsia, | | | | | | heart disease and some | | | | | | cancers among other | | | | | | conditions. The presence | | | | | | of rheumatoid factor at | | | | | | a level >50 IU/mL may | | | | | | falsely elevate the | | | | | | determined D-dimer | | | | | | levels. | | | | + + + + + + + + | Specimen | + + | Blood | + + + + + + + | Performing | Address | City/State/Zipcode | Phone Number | | Organization | | | | + + + + + | [facility] | [address] | [place] | [phone] | | [facility] | | [address] | | | - LABORATORY | | | | + + + + + Troponin I (06/15/2015 6:49 PM PST) + + + + + + | Component | Value | Ref Range | Performed | Pathologist | | | | | At | Signature | + + + + + + | Troponin I | 0.02Comment: Reference | <0.06 ng/mL | [facility] | | | | Ranges:0.00-0.06 = | | [facility] | | | | NORMAL>0.06 = | | MEDICAL | | | | SUSPICIOUS FOR | | CENTER - | | | | MYOCARDIAL DAMAGE NOTE: | | LABORATORY | | | | Values greater than 0.50 | | | | | | ng/mL have been shown | | | | | | to be strongly | | | | | | associated with acute | | | | | | myocardial infarction. | | | | | | The [employer] | | | | | | Cardiology (ACC) | | | | | | recommends a decision | | | | | | limit of 0.06 ng/mL for | | | | | | this assay. Results | | | | | | greater than 0.06 can | | | | | | reflect a pre-infarct | | | | | | acute coronary syndrome, | | | | | | but can also reflect | | | | | | myocardial necrosis or | | | | | | injury that is not due | | | | | | to coronary artery | | | | | | disease. Some of these | | | | | | causes are sepsis, | | | | | | hypocolemia, atrial | | | | | | fibrillation, heart | | | | | | failure, pulmonary | | | | | | embolism, myocarditis, | | | | | | myocardial contusion, | | | | | | and renal failure. The | | | | | | diagnosis of myocardial | | | | | | infarction should be | | | | | | based on a combination | | | | | | of the patient's | | | | | | clinical presentation | | | | | | and the clinical | | | | | | laboratory test results | | | | | | (especially serial | | | | | | troponin levels). | | | | + + + + + + + + | Specimen | + + | Blood | + + + + + + + | Performing | Address | City/State/Zipcode | Phone Number | | Organization | | | | + + + + + | [facility] | [address] | [place] | [phone] | | [facility] | | [address] | | | - LABORATORY | | | | + + + + + Comprehensive Metabolic Panel (06/15/2015 6:49 PM PST) + + + + + + | Component | Value | Ref Range | Performed | Pathologist | | | | | At | Signature | + + + + + + | Na | 133 (L) | 136 - 149 | [facility] | | | | | mmol/L | [facility] | | | | | | MEDICAL | | | | | | CENTER - | | | | | | LABORATORY | | + + + + + + | K | 3.9 | 3.5 - 5.1 | [facility] | | | | | mmol/L | [facility] | | | | | | MEDICAL | | | | | | CENTER - | | | | | | LABORATORY | | + + + + + + | Cl | 104 | 98 - 109 mmol/L | [facility] | | | | | | [facility] | | | | | | MEDICAL | | | | | | CENTER - | | | | | | LABORATORY | | + + + + + + | CO2 | 20 (L) | 24 - 31 mmol/L | [facility] | | | | | | [facility] | | | | | | [facility]ICAL | | | | | | CENTER - | | | | | | LABORATORY | | + + + + + + | Anion Gap | 9 | 3 - 16 mmol/L | [facility] | | | | | | [facility] | | | | | | [facility]ICAL | | | | | | CENTER - | | | | | | LABORATORY | | + + + + + + | Glucose | 304 (H) | 70 - 109 mg/dL | [facility] | | | | | | [facility] | | | | | | MEDICAL | | | | | | CENTER - | | | | | | LABORATORY | | + + + + + + | BUN | 11 | 7 - 18 mg/dL | [facility] | | | | | | [facility] | | | | | | MEDICAL | | | | | | CENTER - | | | | | | LABORATORY | | + + + + + + | Creatinine | 1.73 (H) | 0.60 - 1.30 | [facility] | | | | | mg/dL | [facility] | | | | | | MEDICAL | | | | | | CENTER - | | | | | | LABORATORY | | + + + + + + | eGFR if not | 31 (L)Comment: | >=60 | [facility] | | | | GLOMERULAR FILTRATION | mL/min/1.73m2 | [facility] | | | HUNGARIAN | RATE,ESTIMATED | | MEDICAL | | | | mL/min/1.21a8Xrfu than | | CENTER - | | | | 60 Chronic kidney [...] + + | Calcium | 8.5 | 8.3 - 10.5 | [facility] | | | | | mg/dL | [facility] | | | | | | MEDICAL | | | | | | CENTER - | | | | | | LABORATORY | | + + + + + + | Albumin | 3.6 | 3.2 - 5.0 g/dL | [facility] | | | | | | [facility] | | | | | | [facility]ICAL | | | | | | CENTER - | | | | | | LABORATORY | | + + + + + + | Bilirubin | 0.4 | 0.1 - 1.5 mg/dL | [facility] | | | Total | | | [facility] | | | | | | MEDICAL | | | | | | CENTER - | | | | | | LABORATORY | | + + + + + + | Total | 7.6 | 6.0 - 7.8 g/dL | [facility] | | | Protein | | | [facility] | | | | | | MEDICAL | | | | | | CENTER - | | | | | | LABORATORY | | + + + + + + | AST | 46 (H) | 10 - 42 U/L | [facility] | | | | | | [facility] | | | | | | MEDICAL | | | | | | CENTER - | | | | | | LABORATORY | | + + + + + + | ALT | 39 | 6 - 45 U/L | [facility] | | | | | | [facility] | | | | | | MEDICAL | | | | | | CENTER - | | | | | | LABORATORY | | + + + + + + | Alkaline | 74 | 40 - 110 U/L | [facility] | | | Phosphatase | | | [facility] | | | | | | MEDICAL | | | | | | CENTER - | | | | | | LABORATORY | | + + + + + + | Globulin | 4.0 | g/dL | [facility] | | | | | | [facility] | | | | | | [facility]ICAL | | | | | | CENTER - | | | | | | LABORATORY | | + + + + + + | Albumin/Lissette | 0.9 | | [facility] | | | bulin Ratio | | | [facility] | | | | | | MEDICAL | | | | | | CENTER - | | | | | | LABORATORY | | + + + + + + | BUN/Creatin | 6.4 | | [facility] | | | ine Ratio | | | [facility] | | | | | | MEDICAL | | | | | | CENTER - | | | | | | LABORATORY | | + + + + + + + + | Specimen | + + | Blood | + + + + + + + | Performing | Address | City/State/Zipcode | Phone Number | | Organization | | | | + + + + + | [facility] | [address] | [place] | [phone] | | [facility] | | [address] | | | - LABORATORY | | | | + + + + + CBC with Differential (06/15/2015 6:49 PM PST) + + + + + + | Component | Value | Ref Range | Performed | Pathologist | | | | | At | Signature | + + + + + + | White Blood | 18.2 (H) | 4.0 - 11.0 K/uL | [facility] | | | Cells | | | [facility] | | | | | | MEDICAL | | | | | | CENTER - | | | | | | LABORATORY | | + + + + + + | Red Blood | 5.42 (H) | 3.70 - 5.20 | [facility] | | | Cells | | M/uL | [facility] | | | | | | MEDICAL | | | | | | CENTER - | | | | | | LABORATORY | | + + + + + + | Hemoglobin | 9.7 (L) | 11.5 - 16.0 | [facility] | | | | | g/dL | [facility] | | | | | | MEDICAL | | | | | | CENTER - | | | | | | LABORATORY | | + + + + + + | Hematocrit | 33.6 (L) | 34.0 - 47.0 % | [facility] | | | | | | [facility] | | | | | | MEDICAL | | | | | | CENTER - | | | | | | LABORATORY | | + + + + + + | MCV | 62.0 (L) | 83.0 - 101.0 fL | [facility] | | | | | | [facility] | | | | | | MEDICAL | | | | | | CENTER - | | | | | | LABORATORY | | + + + + + + | MCH | 17.9 (L) | 28.0 - 35.0 pg | [facility] | | | | | | [facility] | | | | | | MEDICAL | | | | | | CENTER - | | | | | | LABORATORY | | + + + + + + | MCHC | 28.8 (L) | 32.0 - 36.0 | [facility] | | | | | g/dL | [facility] | | | | | | MEDICAL | | | | | | CENTER - | | | | | | LABORATORY | | + + + + + + | RDW-CV | 21.3 (H) | <15.0 % | [facility] | | | | | | [facility] | | | | | | MEDICAL | | | | | | CENTER - | | | | | | LABORATORY | | + + + + + + | Platelet | 347 | 140 - 440 K/uL | [facility] | | | Count | | | [facility] | | | | | | MEDICAL | | | | | | CENTER - | | | | | | LABORATORY | | + + + + + + | MPV | 9.1 | fL | [facility] | | | | | | [facility] | | | | | | MEDICAL | | | | | | CENTER - | | | | | | LABORATORY | | + + + + + + | % | 57.8 | 45.0 - 82.0 % | [facility] | | | Neutrophils | | | [facility] | | | | | | MEDICAL | | | | | | CENTER - | | | | | | LABORATORY | | + + + + + + | % | 30.6 | 20.0 - 45.0 % | [facility] | | | Lymphocytes | | | [facility] | | | | | | MEDICAL | | | | | | CENTER - | | | | | | LABORATORY | | + + + + + + | % Monocytes | 6.7 | 4.0 - 12.0 % | [facility] | | | | | | [facility] | | | | | | [facility]ICAL | | | | | | CENTER - | | | | | | LABORATORY | | + + + + + + | % | 3.4 | 0.0 - 5.0 % | [facility] | | | Eosinophils | | | [facility] | | | | | | MEDICAL | | | | | | CENTER - | | | | | | LABORATORY | | + + + + + + | % Basophils | 1.5 (H) | 0.0 - 1.0 % | [facility] | | | | | | [facility] | | | | | | MEDICAL | | | | | | CENTER - | | | | | | LABORATORY | | + + + + + + | Absolute | 10.50 (H) | 1.80 - 8.50 | [facility] | | | Neutrophils | | K/uL | [facility] | | | | | | MEDICAL | | | | | | CENTER - | | | | | | LABORATORY | | + + + + + + | Absolute | 5.60 (H) | 0.60 - 3.20 | [facility] | | | Lymphocytes | | K/uL | [facility] | | | | | | MEDICAL | | | | | | CENTER - | | | | | | LABORATORY | | + + + + + + | Absolute | 1.20 (H) | 0.00 - 1.00 | [facility] | | | Monocytes | | K/uL | [facility] | | | | | | MEDICAL | | | | | | CENTER - | | | | | | LABORATORY | | + + + + + + | Absolute | 0.60 (H) | 0.00 - 0.40 | [facility] | | | Eosinophils | | K/uL | [facility] | | | | | | MEDICAL | | | | | | CENTER - | | | | | | LABORATORY | | + + + + + + | Absolute | 0.30 (H) | 0.00 - 0.10 | [facility] | | | Basophils | | K/uL | [facility] | | | | | | MEDICAL | | | | | | CENTER - | | | | | | LABORATORY | | + + + + + + + + | Specimen | + + | Blood | + + + + + + + | Performing | Address | City/State/Zipcode | Phone Number | | Organization | | | | + + + + + | [facility] | [address] | [place] | [phone] | | [facility] | | [address] | | | - LABORATORY | | | | + + + + + documented in this encounter Visit Diagnoses + + | Diagnosis | + + | Atypical chest pain - Primary Other chest pain | + + documented in this encounter Administered Medications + +--------+---------+------+------+------+ | Medication Order | MAR | Action | Dose | Rate | Site | | | Action | Date | | | | + +--------+---------+------+------+------+ + +---+ | diphenhydrAMINE (BENADRYL) 50 | | | mg/mL injection Starting Shakira | | | 06/15/15 at 2150, For 1 dose, JASON, | | | GAURANG: arden rojas, | | + +---+ | | | + +---+ + +-------+ +-------+---+---+ | diphenhydrAMINE (BENADRYL) | Given | 06/15/19 | 50 mg | | | | injection 50 mg 50 mg, | | 16 9:50 | | | | | Intravenous, ONCE, Shakira 06/15/15 at | | PM PST | | | | | 2110, For 1 dose | | | | | | + +-------+ +-------+---+---+ +---+---+ | | | +---+---+ + +-------+ +--------+---+---+ | fentaNYL injection 50 mcg 50 | Given | 06/15/19 | 50 mcg | | | | mcg, Intravenous, ONCE, Shakira | | 16 7:12 | | | | | 06/15/15 at 1910, For 1 dose | | PM PST | | | | + +-------+ +--------+---+---+ +---+---+ | | | +---+---+ + +-------+ +--------+---+---+ | fentaNYL injection 50 mcg 50 | Given | 06/15/19 | 50 mcg | | | | mcg, Intravenous, ONCE, Shakira | | 16 7:42 | | | | | 06/15/15 at 1940, For 1 dose | | PM PST | | | | + +-------+ +--------+---+---+ +---+---+ | | | +---+---+ + + + + +---+---+ | HYDROcodone-acetaminophen | Dispense | 06/15/19 | 1 tablet | | | | (NORCO) 5-325 mg per tablet (ER | to Home | 16 10:50 | | | | | Prepack) 1-2 tablet 1-2 tablet, | | PM PST | | | | | Oral, ONCE, Shakira 06/15/15 at 2235, | | | | | | | For 1 dose, 1-2 tablets every 6 | | | | | | | hours prn pain, | | | | | | + + + + +---+---+ +---+---+ | | | +---+---+ + +-------+ +------+---+---+ | HYDROmorphone (DILAUDID) 1 | Given | 06/15/19 | 1 mg | | | | mg/mL injection 1 mg 1 mg, | | 16 10:03 | | | | | Intravenous, ONCE, [facility] 06/15/15 at | | PM PST | | | | | 2135, For 1 dose | | | | | | + +-------+ +------+---+---+ +---+---+ | | | +---+---+ + +-------+ +--------+---+---+ | iohexol (OMNIPAQUE 350) 350 | Given | 06/15/19 | 60 mLs | | | | mg/mL injection 60 mL 60 mL, | | 16 9:04 | | | | | Intravenous, ONCE PRN, Other, | | PM PST | | | | | Starting [facility] 06/15/15 at 2103, For | | | | | | | 1 dose, Cat Scanner | | | | | | + +-------+ +--------+---+---+ +---+---+ | | | +---+---+ + +-------+ +------+---+---+ | metoprolol tartrate (LOPRESSOR) | Given | 06/15/19 | 5 mg | | | | injection 5 mg 5 mg, | | 16 7:56 | | | | | Intravenous, EVERY 15 MIN PRN, | | PM PST | | | | | SBP greater than 160, Starting | | | | | | | Shakira 06/15/15 at 1948, For 3 doses, | | | | | | | Goal heart rate of 60, systolic | | | | | | | blood pressure of 100., | | | | | | + +-------+ +------+---+---+ +---+---+ | | | +---+---+ + +-------+ +------+---+---+ | ondansetron (ZOFRAN) injection | Given | 06/15/19 | 4 mg | | | | 4 mg 4 mg, Intravenous, ONCE, | | 16 7:09 | | | | | Shakira 2/4/16 at 1910, For 1 dose | | PM PST | | | | + +-------+ +------+---+---+ +---+---+ | | | +---+---+ + +---------+ +--------+-------+---+ | sodium chloride 0.9% (NS) bolus | New Bag | 06/15/19 | 35 mLs | 2100 | | | 35 mL 35 mL, Intravenous, | | 16 9:04 | | mL/hr | | | Administer over 1 Minutes, ONCE | | PM PST | | | | | PRN, for contrast study, Starting | | | | | | | Shakira 06/15/15 at 2103, For 1 dose, | | | | | | | May infuse at a different rate | | | | | | | per protocol., Cat Scanner | | | | | | + +---------+ +--------+-------+---+ +---+---+ | | | +---+---+ + +---------+ +---------+-------+---+ | sodium chloride 0.9% (NS) bolus | New Bag | 06/15/19 | 500 mLs | 500 | | | 500 mL 500 mL, Intravenous, | | 16 7:58 | | mL/hr | | | Administer over 1 Hours, ONCE, | | PM PST | | | | | Shakira 06/15/15 at 1950, For 1 dose | | | | | | + +---------+ +---------+-------+---+ +---+---+ | | | +---+---+ documented in this encounter
--- OUTSIDE RECORDS SUMMARY | ~2019-11-29 | XMS | Encounter Summary ---
Demographics + + + | Address | [address] | | | [place] [address] | + + + | Home Phone | | + + + | Preferred Language | Unknown | + + + | Marital Status | | + + + | Hinduism Affiliation | Unknown | + + + [...] Team Providers + +------+ + | Care Radiologic Therapist Name | Role | Phone | + +------+ + | Kyle Richey DO | PCP | | + +------+ + Reason for Visit +--------+--------+ + | Reason | Onset | Comments | | | Date | | +--------+--------+ + | Other | 03/23/ | cardiac clearnace | | | 2018 | | +--------+--------+ + Encounter Details +--------+ + + + + | Date | Type | Department | Care Team | Description | +--------+ + + + + | 03/23/ | Telephone | [facility] | NimeshjaxxiaoMarissa, | Other (cardiac | | 2017 | | CARDIOLOGY [address] | [place] ) | | | | [place], | [place], | | | | | [place] [address] | [place] [address] | | | | | [phone] | [phone] | | | | | | | [...] this encounter Miscellaneous Notes Telephone Encounter - Rosita Ahn - 03/24/2018 10:50 AM PSTPatient scheduled 8 at 3:30. elephone Enc ounter - Rosita Ahn - 03/24/2018 10:33 AM PSTLeft voicemail to call back and schedul e cardiac clearance. Hold Spot on 03-26-18 at 3:[address] Beavers elephone Encounter - Evangelina Interiano RN - 2017 8:[address] Beavers, patient was seen in January but cardiac cl earance should be within 30 days of surgery. She will need to be seen in the office either by Dr Beavers or PALLIATIVE NURSE for surgery clearance. I will ask PSR's to please call the patient and coordinate an appointment soon. Thanks .... .......................................Evangelina Interiano RN on 03/24/18 at 8:08 elephone Encounter - Yasmeen Galan RN - 03/23/2018 3:57 PM PSTDiana called stating she has a hysterectomy scheduled on 04/23/18 in [place] and requests a statement for cardiac clearance be faxed to [phone]. Will route to Dr. Beavers to further discuss and fax note with last office not e to provided clinic's fax number. ...........................................YASMEEN Moore RN on 03/23/18 at 16:00 documented in this e ncounter Plan of Treatment Not on filedocumented as of this encounter Visit Diagnoses Not on filedocumented in this encounter"
--- OUTSIDE RECORDS SUMMARY | ~2019-11-29 | XMS | Encounter Summary ---
Demographics + + + | Address | [address] | | | [place] [address] | + + + | Home Phone | | + + + | Preferred Language | Unknown | + + + | Marital Status | | + + + | Zoroastrianism Affiliation | Unknown | + + + | Race | Unknown | + + + | Ethnic Group | Unknown | + + + Author + + + | Author | [facility] | | | and [place] | + + + | Organization | [facility] | | | [...] Team Providers + +------+ + | Care Textiles And Clothing Teacher Name | Role | Phone | + +------+ + | Kyle Richey DO | PCP | | + +------+ + Reason for Visit +---------+--------+ + | Reason | Onset | Comments | | | Date | | +---------+--------+ + | Results | 11/24/ | | | | 2019 | | +---------+--------+ + Encounter Details +--------+ + + + + | Date | Type | Department | Care Team | Description | +--------+ + + + + | 11/24/ | Telephone | [facility] | Felipe | Fay | | 2019 | | CARE [address] | Ras Bryan MD | | | | | [place] | [address] | | | | | [address] | [place] [facility] [place] | | | | | [phone] | [address] | | | | | | | [...] this encounter Miscellaneous Notes Telephone Encounter - Board, Ronaldo Keys MA - 11/24/2018 2:08 PM PDTCalled pt and notifie d her of note and she understood and had no questions. elephone Encounte r - Ras Wang MD - 11/24/2018 2:[address]/gc jg elephone Encounter - Brianna Siddiqui - 11/24/2018 1:01 PM PDTContact/Caller: Jessie Contact Number: Before 3:00pm [phone] After 3:00 pm [phone] Provider/Nurse: Felipe Sutherland Reason for Call: Results Last Appointment:11.21.18 documented in this enc ounter Plan of Treatment Not on filedocumented as of this encounter Visit Diagnoses Not on filedocumented in this encounter"
--- OUTSIDE RECORDS SUMMARY | ~2019-11-29 | XMS | Encounter Summary ---
Demographics + + + | Address | [address] | | | [place] [address] | + + + | Home Phone [...] Team Providers + +------+ + | Care Multi Slide Machine Tender Name | Role | Phone | + +------+ + | Kyle Richey DO | PCP | | + +------+ + Reason for Visit + +--------+ + | Reason | Onset | Comments | | | Date | | + +--------+ + | Medication Refill | 11/05/ | | | | 2017 | | + +--------+ + Encounter Details +--------+--------+ + + + | Date | Type | Department | Care Team | Description | +--------+--------+ + + + | 11/05/ | Refill | [facility] | Riaz Retana | Medication Refill | | 2016 | | NEPHROLOGY [address] | M, DO [address] | | | | | [address] | [address] [place] | | | | | [place], [place] | [place] [address] | | | | | [address] | [phone] | | | | | [phone] | | | +--------+--------+ + + + Social History + + [...]
--- OUTSIDE RECORDS SUMMARY | ~2019-11-29 | XMS | Encounter Summary ---
Demographics + + + | Address | [address] | | | [place] [address] | + + + | Home Phone | | + + + | Preferred Language | Unknown | + + + | Marital Status | | + + + | Anglican Affiliation | Unknown | + + + | Race | Unknown | + + + | Ethnic Group | Unknown | + + + Author + + + | Author | [facility] | | | and [place] | + + + | Organization | [facility] | | | [...] Team Providers + +------+ + | Care Global Compensation Manager Name | Role | Phone | + +------+ + | Kyle Richey DO | PCP | | + +------+ + Reason for Visit Auth/Cert +--------+--------+ + + + + | Status | Reason | Specialty | Diagnoses / | Referred By | Referred To | | | | | Procedures | Contact | Contact | +--------+--------+ + + + + | | | | Diagnoses | | | | | | | Chest pain | | | | | | | CHEST PAIN | | | +--------+--------+ + + + + Encounter Details +--------+---------+ + + + | Date | Type | Department | Care Team | Description | +--------+---------+ + + + | 11/22/ | Surgery | [facility] | Irvin Bell | CV Cor Angio | | 2016 | | MED CTR CV INTRA OP | MD Wagner [address] | | | | [address] | [address] [facility] | | | | | [place] | [place] [address] | | | | | [address] | [phone] | | | | | [phone] | | | +--------+---------+ + + + [...] + + + | Blood Pressure | 148/72 | 11/23/2015 7:34 AM | | | | | PDT | | + + + + + | Pulse | 82 | 11/23/2015 9:00 AM | | | | | PDT | | + + + + + | Temperature | 37.1 C (98.8 F) | 11/23/2015 7:34 AM | | | | | PDT | | + + + + + | Respiratory Rate | 18 | 11/23/2015 9:00 AM | | | | | PDT | | + + + + + | Oxygen Saturation | 98% | 11/23/2015 9:00 AM | | | | | PDT | | + + + + + | Inhaled Oxygen | - | - | | | Concentration | | | | + + + + + | Weight | 95 kg (209 lb 7 oz) | 11/23/2015 4:03 AM | | | | | PDT | | + + + + + | Height | 157.5 cm (5' 2.01") | 11/20/2015 1:53 AM | | | | | PDT | | + + + + + | Body Mass Index | 38.26 | 11/20/2015 1:53 AM | | | | | PDT | | + + + + + documented in this encounter Discharge Summaries Molina Owens MD - 11/24/2015 10:35 AM PDT DISCHARGE SUMMARY Patient Name: Jessie Casarez : 1965 Date of Admission: 11/20/2015 Date of Discharge: 11/24/2015 Admitting Physician: Victoriano Morales DO Discharging Physician: Molina Owens MD Primary Care Provider: Kyle Richey DO Discharge Diagnoses: Principal Problem: Non-ST elevation myocardial infarction (NSTEMI), initial episode of care Active Problems: Elevated troponin I level Uncontrolled diabetes mellitus with hyperglycemia Acute kidney injury superimposed on chronic kidney disease Leukocytosis, unspecified type RA (rheumatoid arthritis) CAD (coronary artery disease) COPD (chronic obstructive pulmonary disease) Suspected sleep apnea Microcytic anemia Resolved Problems: * No resolved hospital problems. * Patient Active Problem List Diagnosis Extrapulmonary TB [...] sleep apnea Microcytic anemia Leukocytosis, unspecified type Consultants: Cardiology Procedures: Cardiac Cathiterization Reason for Admission: Please refer to the H&P for full details. In short, this is a 50 y.o. female with a histor y of CAD, CKD, COPD, GERD, DM which has been uncontrolled, RA, who was sent from [facility] with chest pain, hyperglycemia and elevated troponins consistent with NSTEMI. She additi onally had renal dysfunction above her baseline. The patient was fluid resuscitated. Her Met formin was held, and she was placed on insulin. Patient underwent diagnostic cardiac cathete rization, which showed a high grade right coronary artery lesion that required stenting. She continued to be hydrated for renal protection post-dye load in the setting of acute on chronometer repairer miles renal failure. Her renal function remained stable post-catheterization. The patient had a therapeutic catheterization with placement of an RCA stent. Post-procedur e she was placed on dual antiplatelet therapy with plavix and aspirin. Her renal function re mained stable overnight. She is being discharged home with follow with her PCP and with Dr. Beavers in the outpatient setting Code Status: Full Code Disposition: Home Discharge Condition: good Follow-up Information Follow up with Kyle Richey DO In 1 week. Specialty: Family Medicine Contact information: [address] [facility] [address] Follow up with Marissa Rouse MD In 2 weeks. Specialty: Cardiology Contact information: [address] [facility] [address] Discharge Medications New Medications Details atorvaSTATin 20 mg tablet Take 1 tablet by mouth nightly. aka: LIPITOR HYDROcodone-acetaminophen 5-325 mg per tablet Take 1 tablet by mouth every 4 hours as needed for Pain. aka: NORCO metoprolol tartrate 50 mg tablet Take 1 tablet by mouth 2 times daily. aka: LOPRESSOR prasugrel 10 mg Tabs Take 1 tablet by mouth Daily. aka: EFFIENT Unchanged Medications Details adalimumab 40 mg/0.8 mL injection (pen) Notes to Patient: For rheumatoid arthritis Inject 0.8 mLs under the skin every 7 days. aka: HUMIRA PEN albuterol 90 mcg/puff inhaler Inhale 2 puffs into the lungs every 6 hours as needed for Wheezing or Shortness of Breath. ANUCORT-HC 25 mg suppository Generic drug: hydrocortisone Notes to Patient: For hemorrhoids Insert 1 suppository every 4-6 hours as needed aspirin 81 mg chewable tablet Notes to Patient: To help prevent a blood clot Take 81 mg by mouth Daily. lisinopril 10 mg tablet Notes to Patient: For hypertension Take one tablet daily aka: PRINIVIL, ZESTRIL metFORMIN 500 mg tablet Notes to Patient: For blood sugar control Take one tablet twice daily aka: GLUCOPHAGE predniSONE 10 mg tablet Take by mouth Daily. Take 4 tabs daily x 3 days, then 3 tabs x 3 days, then 2 tabs x 3 da ys, then 1 tab x 3 days, then stop. Start 2 tabs on 11/19. aka: DELTASONE tiotropium 18 mcg inhalation capsule Notes to Patient: To improve breathing Inhale 1 capsule into the lungs Daily. aka: SPIRIVA Studies With Pending Results: None Greater than 30 minutes were spent on discharge and coordination of post-hospital care. Electronically signed by: Molina Owens MD, 11/24/2015 10:36 [facility] documented in this encounter Discharge Instructions Instructions Leslie Carrion, Home Mortgage Disclosure Act Specialist-Clinical - 11/24/2015Please arrive at 3:30 pm, 1/2 hr earlier than appt on 12/07/15 due to paperwork that will be needed to be filled out. documented in this encounter Medications at Time [...] + + + +---------+ + + | albuterol 90 | Inhale 2 puffs into | | 0 | | | | mcg/puff inhaler | the lungs every 6 | | | | 6 | | | hours as needed for | | | | | | | Wheezing or | | | | | | | Shortness of Breath. | | | | | + + [...] tablet by | 30 | 0 | 11/24/19 | | | (LIPITOR) 20 mg | mouth nightly. | tablet | [...] + +---------+ + + | lisinopril | PATIENT STATED NO | | 0 | 07/20/19 | | | (PRINIVIL ZESTRIL) | LONGER TAKING THIS | | | 16 | 6 | | 10 mg tablet | MEDICATION. STATED | | | | | | | ON 02/22/2016.Take | | | | | | | one tablet daily | | | | | + + [...] prasugrel | Take 1 tablet by | 30 | 0 | 11/24/19 | | | (EFFIENT) 10 mg TABS | mouth Daily. | tablet | | 16 | 6 | + + + +---------+ + + | predniSONE | Take by mouth | | 0 | | | | (DELTASONE) 10 mg | Daily. Take 4 tabs | | | | 6 | | tablet | daily x 3 days, then | | | | | | | 3 tabs x 3 days, | | | | | | | then 2 tabs x 3 | | | | | | | days, then 1 tab x 3 | | | | | | | days, then stop. | | | | | | | Start 2 tabs on | | | | | | | 11/19. | | | | | + + + +---------+ + + | tiotropium | Inhale 1 capsule | 90 | 3 | 10/05/19 | | | (SPIRIVA) 18 mcg | into the lungs | capsule | | 16 | 8 | | inhalation capsule | Daily. | | | | | + + + +---------+ + + documented as of this encounter Progress Marissa Avalos MD - 11/24/2015 7:16 AM PDTFormatting of this note might be different f rom the original. PATIENT NAME: Jessie Casarez : 1965: AGE: 50 y.o. ADMISSION DATE: 11/20/2015 HOSPITAL DAY NUMBER: 4 PRIMARY CARE: Kyle Richey DO CONSULTING PROVIDER: Marissa Rouse MD CARDIOLOGY PROGRESS NOTE DATE OF SERVICE: 11/24/15 SUBJECTIVE: Patient status post PCI of the mid RCA by Dr. Bell on 11/23/15. She had a good night. No recurrent chest pain. Blood sugars running between 130 to 150, not requiring insulin. Patie nt denies breathlessness. There is no palpitation dizziness or lightheadedness. There is n o ankle or leg swelling. Patient can sleep on one pillow at night without difficulty breath ing. CURRENT SCHEDULED MEDS: aspirin 325 mg Oral Daily atorvaSTATin 20 mg Oral Nightly enoxaparin (LOVENOX) injection 1 mg/kg Subcutaneous Daily insulin lispro 0-18 Units Subcutaneous 4x Daily WC and HS metoprolol tartrate 50 mg Oral BID nitroglycerin 1 inch Topical 4 times per day prasugrel 10 mg Oral Daily tiotropium 18 mcg Inhalation Daily IV INFUSIONS: sodium chloride 0.9% 125 mL/hr at 11/24/15 0702 OBJECTIVE: PHYSICAL EXAM Latest VS: BP 161/84 mmHg | Pulse 76 | Temp(Src) 37 C (98.6 F) (Oral) | Resp 18 | Ht 1 .575 m (5' 2.01") | Wt 94.9 kg (209 lb 3.5 oz) | BMI 38.26 kg/m2 | SpO2 99% Admit Weight: Weight: 95.2 kg (209 lb 14.1 oz) Current weight: Weight: 94.9 kg (209 lb 3.5 oz) Vital sign ranges for last 24hrs: Input and output for last 24hrs: Temp: [36.2 C (97.2 F)-37.6 C (99.7 F)] 37 C (98.6 F) Pulse: [72-89] 76 Resp: [15-29] 18 BP: (144-172)/(60-90) 161/84 mmHg SpO2 Av.9 % Min: 96 % Max: 99 % Flow (L/min) Av Min: 2 Max: 2 11/21 1901 - 11/23 0700 In: 6686 [P.O.:2240; I.V.:4446] Out: 5850 [Urine:5850] Constitutional General appearance: Female individual, well developed, well nourished, well groomed, n o acute distress Cardiovascular Palp/Percussion: PMI in 5th ICS at MCL; no lifts, thrills, palp S3 or S4. Auscultation: normal S1 S2; no gallop or rub or click Murmur: none Carotid arteries: pulses 2+, symmetric, no bruits Abdominal aorta: no enlargement or bruits Pedal pulses: pulses 2+, symmetric Peripheral circulation: no cyanosis, clubbing, edema, or varicosities Gastrointestinal Abdomen: soft, non-tender Liver and spleen: no enlargement Mental Status/Neurological Orientation: oriented to time, place, and person Affect/Mood: no depression, anxiety, or agitation Respiratory Respiratory effort: no intercostal retractions or use of accessory muscles Auscultation: no rales, rhonchi, or wheezes LABS Recent Results (from the past 24 hour(s)) POC Glucose Collection Time: 11/23/15 11:24 Result Value Ref Range POC Glucose 130 70-150 mg/dL POC Glucose Collection Time: 11/23/15 17:44 Result Value Ref Range POC Glucose 120 70-150 mg/dL POC Glucose Collection Time: 11/23/15 21:16 Result Value Ref Range POC Glucose 178 (H) 70-150 mg/dL CBC with Differential Collection Time: 11/24/15 4:30 Result Value Ref Range WBC 14.6 (H) 4.0-11.0 K/uL RBC 4.22 3.70-5.20 M/uL Hgb 7.7 (L) 11.5-16.0 g/dL Hct 26.7 (L) 34.0-47.0 % MCV 63.3 (L) 83.0-101.0 fL MCH 18.3 (L) 28.0-35.0 pg MCHC 29.0 (L) 32.0-36.0 g/dL RDW-CV 22.1 (H) <15.0 % Platelet Count 258 140-440 K/uL MPV 8.9 fL % Neutrophils 69.6 45.0-82.0 % % Lymphocytes 16.6 (L) 20.0-45.0 % % Monocytes 8.6 4.0-12.0 % % Eosinophils 4.1 0.0-5.0 % % Basophils 1.1 (H) 0.0-1.0 % Absolute Neutrophils 10.10 (H) 1.80-8.50 K/uL Absolute Lymphocytes 2.40 0.60-3.20 K/uL Absolute Monocytes 1.30 (H) 0.00-1.00 K/uL Absolute Eosinophils 0.60 (H) 0.00-0.40 K/uL Absolute Basophils 0.20 (H) 0.00-0.10 K/uL Basic Metabolic Panel Collection Time: 11/24/15 4:30 Result Value Ref Range NA 138 136-149 mmol/L K 4.0 3.5-5.1 mmol/L CL 109 98-109 mmol/L CO2 21 (L) 24-31 mmol/L ANION GAP 8 3-16 mmol/L GLUCOSE 145 (H) 70-109 mg/dL BUN 15 7-18 mg/dL Creatinine, Serum/Plasma 1.65 (H) 0.60-1.30 mg/dL eGFR if not 33 (L) >=60 mL/min/1.73m2 CALCIUM 7.8 (L) 8.3-10.5 mg/dL BUN/CREA 9.1 POC Glucose Collection Time: 11/24/15 4:31 Result Value Ref Range POC Glucose 150 70-150 mg/dL ECG: Sinus rhythm, nonspecific ST-T abnormalities. ASSESSMENT: 1. Coronary artery disease/non-STEMI A. Post non-STEMI. Left heart cath on 11/21/12 showed 95% stenosis of the LCx, 20-30% stenosis of the proximal RCA. Status post PTCA and stentsx2 of the LCx .Since that time, she saw a pvc loader for couple times and loss of follow-up. B. Echocardiogram on 11/20/15 showed Mild biatrial dilatation. Maria l left ventricular size, wall thickness and motion. Preserved left ventricular systolic function. LVEF is 60%. Normal valvular structure. Normal right-sided p ressure. Normal IVC with normal respiratory collapse. C. She started having a chest pain on 11/17/15 while she was working at the [employer]. She described it as a chest pressure /10 that radiated across the chest wa ll and was associated some shortness of breath. No palpitation, dizziness or lightheadedne ss. No sweating. She waited until 11/19/15 when she had recurrent bad chest pain that too k her to the ED of [facility] in [place]. She was found to have blood sugar of almost 1000 and troponin of 0.5. She was transferred to [facility]. D. Left heart cath on 11/21/15 [...] mid RCA by Dr. Bell on 11/23/15. She had a good night. No recurrent chest pain. Patient denies breathlessness. There is no signs and symptoms of overt congestive heart failure. She is in a class II of [place] [employer] functional class. There is no fluid re tention on physical examination. She is on a combination of aspirin, Lovenox, metoprolol , Effient a nd atorvastatin. 2. Hypertension A. Blood pressure isstill mildly elevated on increasing dose of metoprolol 50 mg twice a day. 3. Type II diabetes/noncompliant with medication A. She is known to have history of type II diabetes. She was pr escribed on metformin 500 mg twice a day starting in July,. Patient has not started metformin. She is not on diet control either. She doesn't believe that diabetes is real for her. B. Blood sugars running between 130 to 150, not requiring insulin. 4. Rheumatoid arthritis A. She has a history of rheumatoid arthritis and received Humira on ce weekly by Dr. Castillo in [place]. 5. Acute kidney injury on top of the stage III chronic kidney disease A. She also seen a scientific publications editor at [facility] but recently los t follow-up. B. EGFR is 33. 6. Obesity A. She has a poor lifestyle. 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 She does not watch what e eats. 7. Inactivity 8. Noncompliance. A. Patient clearly has not started taking metformin as directed. 9. Hyperlipidemia A. she is now on Lipitor. PLAN: 1. Continue current medical regimen and discharged home today. 2. Follow-up in 2 weeks to check blood pressure and uptitrated beta kate. 3. Consider TRACY inhibitor or ARB's at some point to slow down the kidney failure. Portions of this report were transcribed using voice recognition software. Every effort wa s made to ensure accuracy; however, inadvertent computerized bundle packer errors may be pre sent. Electronically signed by: Marissa Rouse MD 11/24/2015 7:16 Marshal, MD Marissa - 11/23/2015 1:25 PM PDTF ormatting of this note might be different from the original. PATIENT NAME: Jessie Casarez : 1965: AGE: 50 y.o. ADMISSION DATE: 11/20/2015 HOSPITAL DAY NUMBER: 3 PRIMARY CARE: Kyle Richey DO CONSULTING PROVIDER: Marissa Rouse MD CARDIOLOGY PROGRESS NOTE DATE OF SERVICE: 11/23/15 SUBJECTIVE: Patient underwent PCI of the mid RCA by Dr. Bell this morning. He went very well without any, occasion. It is noted that blood pressure is slightly elevated. There is no chest adina n or chest discomfort both at rest and on exertion. Patient denies breathlessness. There i s no palpitation dizziness or lightheadedness. CURRENT SCHEDULED MEDS: aspirin 325 mg Oral Daily atorvaSTATin 20 mg Oral Nightly enoxaparin (LOVENOX) injection 1 mg/kg Subcutaneous Daily insulin lispro 0-18 Units Subcutaneous 4x Daily WC and HS metoprolol tartrate 25 mg Oral BID nitroglycerin 1 inch Topical 4 times per day prasugrel 10 mg Oral Daily tiotropium 18 mcg Inhalation Daily IV INFUSIONS: sodium chloride 0.9% 125 mL/hr at 11/23/15 0528 OBJECTIVE: PHYSICAL EXAM Latest VS: BP 147/75 mmHg | Pulse 77 | Temp(Src) 37.1 C (98.8 F) (Oral) | Resp 27 | Ht 1.575 m (5' 2.01") | Wt 95 kg (209 lb 7 oz) | BMI 38.30 kg/m2 | SpO2 98% Admit Weight: Weight: 95.2 kg (209 lb 14.1 oz) Current weight: Weight: 95 kg (209 lb 7 oz) Vital sign ranges for last 24hrs: Input and output for last 24hrs: Temp: [36.7 C (98.1 F)-37.5 C (99.5 F)] 37.1 C (98.8 F) Pulse: [76-88] 77 Resp: [15-27] 27 BP: (135-169)/(61-85) 147/75 mmHg SpO2 Av.7 % Min: 98 % Max: 100 % Flow (L/min) Av Min: 2 Max: 2 11/20 1901 - 11/22 0700 In: 7271 [P.O.:1872; I.V.:5399] Out: 6550 [Urine:6550] Constitutional General appearance: Female individual, well developed, well nourished, well groomed, n o acute distress Cardiovascular Palp/Percussion: PMI in 5th ICS at MCL; no lifts, thrills, palp S3 or S4. Auscultation: normal S1 S2; no gallop or rub or click Murmur: none Carotid arteries: pulses 2+, symmetric, no bruits Abdominal aorta: no enlargement or bruits Pedal pulses: pulses 2+, symmetric Peripheral circulation: no cyanosis, clubbing, edema, or varicosities Gastrointestinal Abdomen: soft, non-tender Liver and spleen: no enlargement Mental Status/Neurological Orientation: oriented to time, place, and person Affect/Mood: no depression, anxiety, or agitation Respiratory Respiratory effort: no intercostal retractions or use of accessory muscles Auscultation: no rales, rhonchi, or wheezes LABS Recent Results (from the past 24 hour(s)) Occult Blood, Stool, Specimen 3 Collection Time: 11/22/15 15:20 Result Value Ref Range STOOL OCCULT BLOOD X 3 Positive Urinalysis, Reflex Microscopic and/or Culture Collection Time: 11/22/15 17:17 Result Value Ref Range COLOR Straw Light Yellow, Yellow, Straw CLARITY Clear Clear PH UA 6.0 5.0-8.0 Specific [place] 1.006 1.001-1.030 PROTEIN UA 30 mg/dL (A) Negative BLOOD UA Negative Negative GLUCOSE UA Negative Negative KETONES UA Negative Negative BILIRUBIN UA Negative Negative NITRITE UA Negative Negative LEUKOCYTES ESTERASE UA Negative Negative UROBILINOGEN UA Negative 0.2 mg/dL, 1.0 mg/dL, Negative WBC UA 0-2 0-2 /HPF RBC UA 0-2 0-2 /HPF SQUAMOUS EPITHELIAL UA 25-50 (A) 0-2 /LPF BACTERIA UA Negative Negative /HPF MUCUS UA Present (A) Negative /LPF URINE COMMENT Urine Culture Not Indicated POC Glucose Collection Time: 11/22/15 18:12 Result Value Ref Range POC Glucose 116 70-150 mg/dL Hemoglobin and Hematocrit Collection Time: 11/22/15 20:43 Result Value Ref Range Hgb 8.3 (L) 11.5-16.0 g/dL Hct 29.3 (L) 34.0-47.0 % POC Glucose Collection Time: 11/22/15 20:44 Result Value Ref Range POC Glucose 236 (H) 70-150 mg/dL POC Glucose Collection Time: 11/23/15 4:26 Result Value Ref Range POC Glucose 137 70-150 mg/dL CBC with Differential Collection Time: 11/23/15 4:35 Result Value Ref Range WBC 13.8 (H) 4.0-11.0 K/uL RBC 4.42 3.70-5.20 M/uL Hgb 7.8 (L) 11.5-16.0 g/dL Hct 27.5 (L) 34.0-47.0 % MCV 62.3 (L) 83.0-101.0 fL MCH 17.6 (L) 28.0-35.0 pg MCHC 28.2 (L) 32.0-36.0 g/dL RDW-CV 22.4 (H) <15.0 % Platelet Count 249 140-440 K/uL MPV 9.2 fL % Neutrophils 65.1 45.0-82.0 % % Lymphocytes 20.8 20.0-45.0 % % Monocytes 8.5 4.0-12.0 % % Eosinophils 3.7 0.0-5.0 % % Basophils 1.9 (H) 0.0-1.0 % Absolute Neutrophils 9.00 (H) 1.80-8.50 K/uL Absolute Lymphocytes 2.90 0.60-3.20 K/uL Absolute Monocytes 1.20 (H) 0.00-1.00 K/uL Absolute Eosinophils 0.50 (H) 0.00-0.40 K/uL Absolute Basophils 0.30 (H) 0.00-0.10 K/uL Basic Metabolic Panel Collection Time: 11/23/15 4:35 Result Value Ref Range NA 140 136-149 mmol/L K 3.7 3.5-5.1 mmol/L CL 113 (H) 98-109 mmol/L CO2 21 (L) 24-31 mmol/L ANION GAP 6 3-16 mmol/L GLUCOSE 140 (H) 70-109 mg/dL BUN 16 7-18 mg/dL Creatinine, Serum/Plasma 1.64 (H) 0.60-1.30 mg/dL eGFR if not 33 (L) >=60 mL/min/1.73m2 CALCIUM 7.7 (L) 8.3-10.5 mg/dL BUN/CREA 9.8 POC Glucose Collection Time: 11/23/15 11:24 Result Value Ref Range POC Glucose 130 70-150 mg/dL ASSESSMENT: 1. Coronary artery disease/non-STEMI A. Post non-STEMI. Left heart cath on 11/21/12 showed 95% stenosis of the LCx, 20-30% stenosis of the proximal RCA. Status post PTCA and stentsx2 of the LCx .Since that time, she saw a pvc loader for couple times and loss of follow-up. B. Echocardiogram on 11/20/15 showed Mild biatrial dilatation. Maria l left ventricular size, wall thickness and motion. Preserved left ventricular systolic function. LVEF is 60%. Normal valvular structure. Normal right-sided p ressure. Normal IVC with normal respiratory collapse. C. She started having a chest pain on 11/17/15 while she was working at the [employer]. She described it as a chest pressure 11/18 that radiated across the chest wa ll and was associated some shortness of breath. No palpitation, dizziness or lightheadedne ss. No sweating. She waited until 11/19/15 when she had recurrent bad chest pain that too k her to the ED of [facility] in [place]. She was found to have blood sugar of almost 1000 and troponin of 0.5. She was transferred to [facility]. D. Left heart cath on 11/21/15 [...] RCA by on 11/23/15 . F. Patient is doing good. She is now asymptomatic. There is no signs and symptoms of overt congestive heart failure. She is in a class II of [place] [employer] functional class. There is no fluid re tention on physical examination. She is on a combination of aspirin, Lovenox, metoprolol , Effient a nd atorvastatin. 2. Hypertension A. Blood pressure is elevated. 3. Type II diabetes/noncompliant with medication A. She is known to have history of type II diabetes. She was pr escribed on metformin 500 mg twice a day starting in July,. Patient has not started metformin. She is not on diet control either. She doesn't believe that diabetes is real for her. 4. Rheumatoid arthritis A. She has a history of rheumatoid arthritis and received Humira on ce weekly by Dr. Castillo in [place]. 5. Acute kidney injury on top of the stage III chronic kidney disease A. She also seen a scientific publications editor at [facility] but recently los t follow-up. B. EGFR is 32. 6. Obesity A. She has a poor lifestyle. 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 She does not watch what e eats. 7. Inactivity 8. Noncompliance. A. Patient clearly has not started taking metformin as directed. 9. Hyperlipidemia A. she is now on Lipitor. PLAN: 1. Increase metoprolol to 50 mg twice a day to treat hypertension and CAD. Portions of this report were transcribed using voice recognition software. Every effort wa s made to ensure accuracy; however, inadvertent computerized bundle packer errors may be pre sent. Electronically signed by: Marissa Rouse MD 11/23/2015 13:25 Molina Medina MD - 11/23/2015 11:44 AM PD T [facility] Hospitalist Progress Note Jessie Casarez is a 50 y.o. female SUBJECTIVE: Examined by me this morning. Patient without complaint. Pending cath and RCA stent placemen t today. VITALS: Temp: 37.1 C (98.8 F), Pulse: 85, Resp: 18, BP: 169/82 mmHg, SpO2 98 % on room air at f low rate 2 (for procedure)L/min Temp Min: 36.7 C (98.1 F) Max: 37.5 C (99.5 F) Weight: 95.2 kg (209 lb 14.1 oz) Intake/Output Summary (Last 24 hours) at 11/23/15 1144 Last data filed at 11/23/15 1043 Gross per 24 hour Intake 4254 ml Output 2800 ml Net 1454 ml PHYSICAL EXAM: General: nad Cardiovascular: S1s2+ no m/t/g Respiratory: CTA-bl Abdomen: S/nt/nd+bs Extremities: No joint effusions Skin: No rashes or lesions Neurological: CN's intact 2-12 DIAGNOSTIC STUDIES: Available data and images were reviewed personally. Significant results and findings are a ddressed here or in the Assessment and Plan. Recent Results (from the past 24 hour(s)) Occult Blood, Stool, Specimen 3 Result Value Ref Range STOOL OCCULT BLOOD X 3 Positive Urinalysis, Reflex Microscopic and/or Culture Result Value Ref Range COLOR Straw Light Yellow, Yellow, Straw CLARITY Clear Clear PH UA 6.0 5.0-8.0 Specific [place] 1.006 1.001-1.030 PROTEIN UA 30 mg/dL (A) Negative BLOOD UA Negative Negative GLUCOSE UA Negative Negative KETONES UA Negative Negative BILIRUBIN UA Negative Negative NITRITE UA Negative Negative LEUKOCYTES ESTERASE UA Negative Negative UROBILINOGEN UA Negative 0.2 mg/dL, 1.0 mg/dL, Negative WBC UA 0-2 0-2 /HPF RBC UA 0-2 0-2 /HPF SQUAMOUS EPITHELIAL UA 25-50 (A) 0-2 /LPF BACTERIA UA Negative Negative /HPF MUCUS UA Present (A) Negative /LPF URINE COMMENT Urine Culture Not Indicated POC Glucose Result Value Ref Range POC Glucose 116 70-150 mg/dL Hemoglobin and Hematocrit Result Value Ref Range Hgb 8.3 (L) 11.5-16.0 g/dL Hct 29.3 (L) 34.0-47.0 % POC Glucose Result Value Ref Range POC Glucose 236 (H) 70-150 mg/dL POC Glucose Result Value Ref Range POC Glucose 137 70-150 mg/dL CBC with Differential Result Value Ref Range WBC 13.8 (H) 4.0-11.0 K/uL RBC 4.42 3.70-5.20 M/uL Hgb 7.8 (L) 11.5-16.0 g/dL Hct 27.5 (L) 34.0-47.0 % MCV 62.3 (L) 83.0-101.0 fL MCH 17.6 (L) 28.0-35.0 pg MCHC 28.2 (L) 32.0-36.0 g/dL RDW-CV 22.4 (H) <15.0 % Platelet Count 249 140-440 K/uL MPV 9.2 fL % Neutrophils 65.1 45.0-82.0 % % Lymphocytes 20.8 20.0-45.0 % % Monocytes 8.5 4.0-12.0 % % Eosinophils 3.7 0.0-5.0 % % Basophils 1.9 (H) 0.0-1.0 % Absolute Neutrophils 9.00 (H) 1.80-8.50 K/uL Absolute Lymphocytes 2.90 0.60-3.20 K/uL Absolute Monocytes 1.20 (H) 0.00-1.00 K/uL Absolute Eosinophils 0.50 (H) 0.00-0.40 K/uL Absolute Basophils 0.30 (H) 0.00-0.10 K/uL Basic Metabolic Panel Result Value Ref Range NA 140 136-149 mmol/L K 3.7 3.5-5.1 mmol/L CL 113 (H) 98-109 mmol/L CO2 21 (L) 24-31 mmol/L ANION GAP 6 3-16 mmol/L GLUCOSE 140 (H) 70-109 mg/dL BUN 16 7-18 mg/dL Creatinine, Serum/Plasma 1.64 (H) 0.60-1.30 mg/dL eGFR if not 33 (L) >=60 mL/min/1.73m2 CALCIUM 7.7 (L) 8.3-10.5 mg/dL BUN/CREA 9.8 POC Glucose Result Value Ref Range POC Glucose 130 70-150 mg/dL No results found. ASSESSMENT and PLAN: Active Hospital Problems Diagnosis *Non-ST elevation myocardial infarction (NSTEMI), initial episode of care Elevated troponin I level Uncontrolled diabetes mellitus with hyperglycemia Acute kidney injury superimposed on chronic kidney disease Leukocytosis, unspecified type Suspected sleep apnea Microcytic anemia COPD (chronic obstructive pulmonary disease) RA (rheumatoid arthritis) CAD (coronary artery disease) Resolved Hospital Problems Diagnosis Date Noted Date Resolved No resolved problems to display. 1. NSTEMI - continue nitrates aspirin, morphine and oxygen. RCA lesion pending PCI today 2. DM - uncontrolled. Hold metformin. SSI 3. Hyperglycemia at time of admission 4. Acute on chronic kidney disease - fluids. Monitor renal function post-cath. Fluids 5. COPD - stable 6. History of RA - weekly Humira injections 7. CAD with previous stents placed. Disposition : TBD Prophylaxis : Lovenox with change to effient Current Facility-Administered Medications: acetaminophen 650 mg Oral Q4H PRN albuterol 2.5 mg Nebulization RT Q4H PRN aluminum & magnesium hydroxide-simethicone 30 mL Oral Q4H PRN aspirin 325 mg Oral Daily atorvaSTATin 20 mg Oral Nightly dextrose 12.5 g Intravenous PRN enoxaparin (LOVENOX) injection 1 mg/kg Subcutaneous Daily heparin 2,000-4,000 Units Intravenous PRN HYDROcodone-acetaminophen 1 tablet Oral Q4H PRN And ondansetron 4 mg Intravenous Q6H PRN insulin lispro 0-18 Units Subcutaneous 4x Daily WC and HS metoprolol tartrate 25 mg Oral BID morphine 2-6 mg Intravenous Q2H PRN nitroglycerin 1 inch Topical 4 times per day ondansetron 4 mg Intravenous Q6H PRN prasugrel 10 mg Oral Daily sodium chloride 0.9% Intravenous Continuous tiotropium 18 mcg Inhalation Daily Total time of approximately 36 minutes was spent with the patient and/or patient's family, and/or on the patient's floor/unit, of which more than 50% was spent counseling and/or coord ination the patient's care as outlined above. Molina Owens 11/23/2015 11:44 [facility] Portions of this chart may have been created with Dragon voice recognition software. Occasi onal wrong-word or sound-alike substitutions may have occurred due to the inherent mary itations of voice recognition software. Please read the chart carefully and recognize, using context, where these substitutions have occurred MitMolina finney MD - 11/22/2015 2:38 PM PDT [facility] Hospitalist Progress Note Jessie Casarez is a 50 y.o. female SUBJECTIVE: Examined by me this morning. Patient is chest pain free now. She underwent cardiac cath, wh ich showed RCA lesion that will require stenting. Patient admitted with acute kidney injury, which improved prior to cath. We continue to monitor for ATN from cath related dye load. Josiah townsend will have an interval PCI with stenting of RCA VITALS: Temp: 36.9 C (98.4 F), Pulse: 74, Resp: 18, BP: 141/64 mmHg, SpO2 100 % on room air at flow rate 2L/min Temp Min: 3 C (37.4 F) Max: 37.2 C (99 F) Weight: 95.2 kg (209 lb 14.1 oz) Intake/Output Summary (Last 24 hours) at 11/22/15 1438 Last data filed at 11/22/15 1300 Gross per 24 hour Intake 3957 ml Output 4950 ml Net -993 ml PHYSICAL EXAM: General: nad Cardiovascular: S1s2+ no m/t/g Respiratory: cta-bl Abdomen: S/nt/nd+bs Extremities: No joint effusions or chages in ROM Skin: No rashes or lesions Neurological: CN's intact 2-12 DIAGNOSTIC STUDIES: Available data and images were reviewed personally. Significant results and findings are a ddressed here or in the Assessment and Plan. Recent Results (from the past 24 hour(s)) POC Glucose Result Value Ref Range POC Glucose 240 (H) 70-150 mg/dL Troponin I Result Value Ref Range Troponin I 4.09 (HH) <0.06 ng/mL POC Glucose Result Value Ref Range POC Glucose 107 70-150 mg/dL CBC with Differential Result Value Ref Range WBC 14.6 (H) 4.0-11.0 K/uL RBC 4.92 3.70-5.20 M/uL Hgb 8.6 (L) 11.5-16.0 g/dL Hct 30.3 (L) 34.0-47.0 % MCV 61.6 (L) 83.0-101.0 fL MCH 17.4 (L) 28.0-35.0 pg MCHC 28.3 (L) 32.0-36.0 g/dL RDW-CV 21.8 (H) <15.0 % Platelet Count 296 140-440 K/uL MPV 8.6 fL % Neutrophils 72.5 45.0-82.0 % % Lymphocytes 15.3 (L) 20.0-45.0 % % Monocytes 9.6 4.0-12.0 % % Eosinophils 2.3 0.0-5.0 % % Basophils 0.3 0.0-1.0 % Absolute Neutrophils 10.60 (H) 1.80-8.50 K/uL Absolute Lymphocytes 2.20 0.60-3.20 K/uL Absolute Monocytes 1.40 (H) 0.00-1.00 K/uL Absolute Eosinophils 0.30 0.00-0.40 K/uL Absolute Basophils 0.00 0.00-0.10 K/uL Basic Metabolic Panel Result Value Ref Range NA 136 136-149 mmol/L K 4.3 3.5-5.1 mmol/L CL 106 98-109 mmol/L CO2 20 (L) 24-31 mmol/L ANION GAP 10 3-16 mmol/L GLUCOSE 149 (H) 70-109 mg/dL BUN 20 (H) 7-18 mg/dL Creatinine, Serum/Plasma 1.67 (H) 0.60-1.30 mg/dL eGFR if not 32 (L) >=60 mL/min/1.73m2 CALCIUM 8.2 (L) 8.3-10.5 mg/dL BUN/CREA 12.0 POC Glucose Result Value Ref Range POC Glucose 139 70-150 mg/dL Occult Blood, Stool, Specimen 2 Result Value Ref Range STOOL OCCULT BLOOD X2 Positive POC Glucose Result Value Ref Range POC Glucose 267 (H) 70-150 mg/dL No results found. ASSESSMENT and PLAN: Active Hospital Problems Diagnosis *Non-ST elevation myocardial infarction (NSTEMI), initial episode of care Elevated troponin I level Uncontrolled diabetes mellitus with hyperglycemia Acute kidney injury superimposed on chronic kidney disease Leukocytosis, unspecified type Suspected sleep apnea Microcytic anemia COPD (chronic obstructive pulmonary disease) RA (rheumatoid arthritis) CAD (coronary artery disease) Resolved Hospital Problems Diagnosis Date Noted Date Resolved No resolved problems to display. 1. NSTEMI - continue nitrates aspirin, morphine and oxygen. Cardiac cath showed RCA lesion 2. DM - uncontrolled. Hold metformin. SSI 3. Hyperglycemia at time of admission 4. Acute on chronic kidney disease - fluids. Monitor renal function post-cath. Fluids 5. COPD 6. History of RA - weekly Humira injections 7. CAD with previous stents placed. Disposition : TBD Prophylaxis : Lovenox Current Facility-Administered Medications: acetaminophen 650 mg Oral Q4H PRN albuterol 2.5 mg Nebulization RT Q4H PRN aluminum & magnesium hydroxide-simethicone 30 mL Oral Q4H PRN aspirin 325 mg Oral Daily atorvaSTATin 20 mg Oral Nightly dextrose 12.5 g Intravenous PRN enoxaparin (LOVENOX) injection 1 mg/kg Subcutaneous Daily heparin 2,000-4,000 Units Intravenous PRN HYDROcodone-acetaminophen 1 tablet Oral Q4H PRN And ondansetron 4 mg Intravenous Q6H PRN insulin lispro 0-18 Units Subcutaneous 4x Daily WC and HS metoprolol tartrate 25 mg Oral BID morphine 2-6 mg Intravenous Q2H PRN nitroglycerin 1 inch Topical 4 times per day ondansetron 4 mg Intravenous Q6H PRN prasugrel 10 mg Oral Daily sodium chloride 0.9% Intravenous Fixed Volume (see admin instruction) sodium chloride 0.9% Intravenous Continuous tiotropium 18 mcg Inhalation Daily Total time of approximately 33 minutes was spent with the patient and/or patient's family, and/or on the patient's floor/unit, of which more than 50% was spent counseling and/or coord ination the patient's care as outlined above. Molina Owens 11/22/2015 14:38 [facility] Portions of this chart may have been created with BlackbookHR voice recognition software. Occasi onal wrong-word or sound-alike substitutions may have occurred due to the inherent mary itations of voice recognition software. Please read the chart carefully and recognize, using context, where these substitutions have occurred Marshal, MD Marissa - 11/22/2015 7:25 AM PDT PATIENT NAME: Jessie Casarez : 1965: AGE: 50 y.o. ADMISSION DATE: 11/20/2015 HOSPITAL DAY NUMBER: 2 PRIMARY CARE: Kyle Richey DO CONSULTING PROVIDER: Marissa Rouse MD CARDIOLOGY PROGRESS NOTE DATE OF SERVICE: 11/22/15 SUBJECTIVE: Patient underwent left heart cath on 11/21/15 which revealed a tight 90% stenosis with trans lucent seen at the midportion of the RCA. His plan to intervene, perform PCI to the lesion in 2-3 days due to a significant kidney failure. Meanwhile, patient has no further chest pa in overnight. Her breathing is good. No palpitation, dizziness and lightheadedness. Telem etry shows sinus rhythm without significant arrhythmia. No ankle or leg swelling. She can sleep on one pillow without shortness of breath. CURRENT SCHEDULED MEDS: aspirin 325 mg Oral Daily atorvaSTATin 20 mg Oral Nightly enoxaparin (LOVENOX) injection 1 mg/kg Subcutaneous Daily insulin lispro 0-18 Units Subcutaneous 4x Daily WC and HS metoprolol tartrate 25 mg Oral BID nitroglycerin 1 inch Topical 4 times per day prasugrel 10 mg Oral Daily tiotropium 18 mcg Inhalation Daily IV INFUSIONS: sodium chloride 0.9% 125 mL/hr at 11/21/15 1211 sodium chloride 0.9% 125 mL/hr at 11/22/15 0430 OBJECTIVE: PHYSICAL EXAM Latest VS: BP 144/77 mmHg | Pulse 85 | Temp(Src) 37 C (98.6 F) (Oral) | Resp 20 | Ht 1 .575 m (5' 2.01") | Wt 95.5 kg (210 lb 8.6 oz) | BMI 38.50 kg/m2 | SpO2 98% Admit Weight: Weight: 95.2 kg (209 lb 14.1 oz) Current weight: Weight: 95.5 kg (210 lb 8.6 oz) Vital sign ranges for last 24hrs: Input and output for last 24hrs: Temp: [3 C (37.4 F)-37.2 C (99 F)] 37 C (98.6 F) Pulse: [72-91] 85 Resp: [15-20] 20 BP: (113-171)/(64-100) 144/77 mmHg SpO2 Av.6 % Min: 93 % Max: 100 % 11/19 1900 - 11/21 0700 In: 4559 [P.O.:1200; I.V.:3091] Out: 6200 [Urine:6200] Constitutional General appearance: Female individual, well developed, well nourished, well groomed, n o acute distress Cardiovascular Palp/Percussion: PMI in 5th ICS at MCL; no lifts, thrills, palp S3 or S4. Auscultation: normal S1 S2; no gallop or rub or click Murmur: none Carotid arteries: pulses 2+, symmetric, no bruits Abdominal aorta: no enlargement or bruits Pedal pulses: pulses 2+, symmetric Peripheral circulation: no cyanosis, clubbing, edema, or varicosities Gastrointestinal Abdomen: soft, non-tender Liver and spleen: no enlargement Mental Status/Neurological Orientation: oriented to time, place, and person Affect/Mood: no depression, anxiety, or agitation Respiratory Respiratory effort: no intercostal retractions or use of accessory muscles Auscultation: no rales, rhonchi, or wheezes LABS Recent Results (from the past 24 hour(s)) Troponin I Collection Time: 11/21/15 11:47 Result Value Ref Range Troponin I 4.83 (HH) <0.06 ng/mL POC Glucose Collection Time: 11/21/15 12:13 Result Value Ref Range POC Glucose 146 70-150 mg/dL POC Glucose Collection Time: 11/21/15 17:20 Result Value Ref Range POC Glucose 240 (H) 70-150 mg/dL Troponin I Collection Time: 11/21/15 17:53 Result Value Ref Range Troponin I 4.09 (HH) <0.06 ng/mL POC Glucose Collection Time: 11/21/15 20:56 Result Value Ref Range POC Glucose 107 70-150 mg/dL CBC with Differential Collection Time: 11/22/15 3:56 Result Value Ref Range WBC 14.6 (H) 4.0-11.0 K/uL RBC 4.92 3.70-5.20 M/uL Hgb 8.6 (L) 11.5-16.0 g/dL Hct 30.3 (L) 34.0-47.0 % MCV 61.6 (L) 83.0-101.0 fL MCH 17.4 (L) 28.0-35.0 pg MCHC 28.3 (L) 32.0-36.0 g/dL RDW-CV 21.8 (H) <15.0 % Platelet Count 296 140-440 K/uL MPV 8.6 fL % Neutrophils 72.5 45.0-82.0 % % Lymphocytes 15.3 (L) 20.0-45.0 % % Monocytes 9.6 4.0-12.0 % % Eosinophils 2.3 0.0-5.0 % % Basophils 0.3 0.0-1.0 % Absolute Neutrophils 10.60 (H) 1.80-8.50 K/uL Absolute Lymphocytes 2.20 0.60-3.20 K/uL Absolute Monocytes 1.40 (H) 0.00-1.00 K/uL Absolute Eosinophils 0.30 0.00-0.40 K/uL Absolute Basophils 0.00 0.00-0.10 K/uL Basic Metabolic Panel Collection Time: 11/22/15 3:56 Result Value Ref Range NA 136 136-149 mmol/L K 4.3 3.5-5.1 mmol/L CL 106 98-109 mmol/L CO2 20 (L) 24-31 mmol/L ANION GAP 10 3-16 mmol/L GLUCOSE 149 (H) 70-109 mg/dL BUN 20 (H) 7-18 mg/dL Creatinine, Serum/Plasma 1.67 (H) 0.60-1.30 mg/dL eGFR if not 32 (L) >=60 mL/min/1.73m2 CALCIUM 8.2 (L) 8.3-10.5 mg/dL BUN/CREA 12.0 ECG: Sinus rhythm, lateral wall ischemia. ASSESSMENT: 1. Coronary artery disease/non-STEMI A. Post non-STEMI. Left heart cath on 11/21/12 showed 95% stenosis of the LCx, 20-30% stenosis of the proximal RCA. Status post PTCA and stentsx2 of the LCx .Since that time, she saw a pvc loader for couple times and loss of follow-up. B. Echocardiogram on 11/20/15 showed Mild biatrial dilatation. Maria l left ventricular size, wall thickness and motion. Preserved left ventricular systolic function. LVEF is 60%. Normal valvular structure. Normal right-sided p ressure. Normal IVC with normal respiratory collapse. C. She started having a chest pain on 11/17/15 while she was working at the [employer]. She described it as a chest pressure /10 that radiated across the chest wa ll and was associated some shortness of breath. No palpitation, dizziness or lightheadedne ss. No sweating. She waited until 11/19/15 when she had recurrent bad chest pain that too k her to the ED of [facility] in [place]. She was found to have blood sugar of almost 1000 and troponin of 0.5. She was transferred to [facility]. D. Left heart cath on 11/21/15 [...] Systemic blood pressure is moderately elevated. E. Today, patient has no further chest pain overnight. Her breathing is good. No palpita tion, dizziness and lightheadedness. Telemetry shows sinus rhythm without significant arrhy thmia. There is no signs and symptoms of overt congestive heart failure. She is in a class II of [place] [employer] functional class. There is no fluid re tention on physical examination. She is on a combination of aspirin, Lovenox, metoprolol and atorvas tatin. 2. Hypertension A. Blood pressure is borderline elevated. 3. Type II diabetes/noncompliant with medication A. She is known to have history of type II diabetes. She was pr escribed on metformin 500 mg twice a day starting in July,. Patient has not started metformin. She is not on diet control either. She doesn't believe that diabetes is real for her. 4. Rheumatoid arthritis A. She has a history of rheumatoid arthritis and received Humira on ce weekly by Dr. Castillo in [place]. 5. Acute kidney injury on top of the stage III chronic kidney disease A. She also seen a scientific publications editor at [facility] but recently los t follow-up. B. EGFR is 32. 6. Obesity A. She has a poor lifestyle. 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 She does not watch what sh home eats. 7. Inactivity 8. Noncompliance. A. Patient clearly has not started taking metformin as directed. 9. Hyperlipidemia A. she is now on Lipitor. PLAN: 1. Increase metoprolol to 25 g twice a day to lower blood pressure. 2. Add Prasugrel 10 mg once a day to treat non-STEMI. 3. Plan to intervene RCA lesion in 1- 2 days. Portions of this report were transcribed using voice recognition software. Every effort wa s made to ensure accuracy; however, inadvertent computerized bundle packer errors may be pre sent. Electronically signed by: Marissa Rouse MD 11/22/2015 7:25 itMolina finney MD - 11/21/2015 12:28 PM PDT [facility] Hospitalist Progress Note Jessie Casarez is a 50 y.o. female SUBJECTIVE: Patient examined by me this morning. The patient is without chest pain overnight. Her renal function is improved. She is undergoing cardiac cath this afternoon. VITALS: Temp: 37.1 C (98.8 F), Pulse: 79, Resp: 15, BP: (!) 160/94 mmHg, SpO2 99 % on room air at flow rate 2L/min Temp Min: 36.2 C (97.2 F) Max: 37.1 C (98.8 F) Weight: 95.2 kg (209 lb 14.1 oz) Intake/Output Summary (Last 24 hours) at 11/21/15 1228 Last data filed at 11/21/15 1139 Gross per 24 hour Intake 2789 ml Output 3450 ml Net -661 ml PHYSICAL EXAM: General: nad Cardiovascular: S1s2+ no m/t/g Respiratory: cta-bl Abdomen: S/nt/nd+bs Extremities: No joint effusions or changes in ROM Skin: No rashes Neurological: Cn's intact 2-12. No focal deficits DIAGNOSTIC STUDIES: Available data and images were reviewed personally. Significant results and findings are a ddressed here or in the Assessment and Plan. Recent Results (from the past 24 hour(s)) POC Glucose Result Value Ref Range POC Glucose 181 (H) 70-150 mg/dL Troponin I Result Value Ref Range Troponin I 9.90 (HH) <0.06 ng/mL POC Glucose Result Value Ref Range POC Glucose 136 70-150 mg/dL Occult Blood, Stool, Specimen 1 Result Value Ref Range STOOL OCCULT BLOOD X1 Negative POC Glucose Result Value Ref Range POC Glucose 195 (H) 70-150 mg/dL CBC with Differential Result Value Ref Range WBC 14.2 (H) 4.0-11.0 K/uL RBC 4.60 3.70-5.20 M/uL Hgb 8.0 (L) 11.5-16.0 g/dL Hct 28.4 (L) 34.0-47.0 % MCV 61.8 (L) 83.0-101.0 fL MCH 17.5 (L) 28.0-35.0 pg MCHC 28.2 (L) 32.0-36.0 g/dL RDW-CV 22.3 (H) <15.0 % Platelet Count 268 140-440 K/uL MPV 9.0 fL % Neutrophils 52.6 45.0-82.0 % % Lymphocytes 35.3 20.0-45.0 % % Monocytes 6.8 4.0-12.0 % % Eosinophils 2.9 0.0-5.0 % % Basophils 2.4 (H) 0.0-1.0 % Absolute Neutrophils 7.50 1.80-8.50 K/uL Absolute Lymphocytes 5.00 (H) 0.60-3.20 K/uL Absolute Monocytes 1.00 0.00-1.00 K/uL Absolute Eosinophils 0.40 0.00-0.40 K/uL Absolute Basophils 0.30 (H) 0.00-0.10 K/uL Protime INR Result Value Ref Range PROTIME 14.1 (H) 11.3-13.9 seconds INR 1.04 0.90-1.10 Basic Metabolic Panel Result Value Ref Range NA 138 136-149 mmol/L K 4.1 3.5-5.1 mmol/L CL 112 (H) 98-109 mmol/L CO2 20 (L) 24-31 mmol/L ANION GAP 6 3-16 mmol/L GLUCOSE 158 (H) 70-109 mg/dL BUN 25 (H) 7-18 mg/dL Creatinine, Serum/Plasma 1.72 (H) 0.60-1.30 mg/dL eGFR if not 31 (L) >=60 mL/min/1.73m2 CALCIUM 7.8 (L) 8.3-10.5 mg/dL BUN/CREA 14.5 Iron and Transferrin Result Value Ref Range IRON 9 (L) 40-150 ug/dL TRANSFERRIN 243.0 240.0-480.0 mg/dL TIBC 340 235-425 ug/dL % SATURATION 2.6 (L) 20.0-55.0 % ECG 12 lead Result Value Ref Range VENTRICULAR RATE EKG 93 BPM ATRIAL RATE 93 BPM P-R INTERVAL 120 ms QRS DURATION 82 ms Q-T INTERVAL 360 ms Q-T INTERVAL (CORRECTED) 447 ms P WAVE AXIS 49 degrees QRS AXIS -33 degrees T AXIS 113 degrees INTERPRETATION TEXT Normal sinus rhythm Left axis deviation T wave abnormality, consider lateral ischemia Abnormal ECG When compared with ECG of 20-NOV-2015 01:54, No significant change was found Confirmed by ALVA FLYNN MD ([id number]) on 11/21/2015 7:06:43 AM Troponin I Result Value Ref Range Troponin I 4.22 (HH) <0.06 ng/mL POC Glucose Result Value Ref Range POC Glucose 150 70-150 mg/dL POC Glucose Result Value Ref Range POC Glucose 146 70-150 mg/dL No results found. ASSESSMENT and PLAN: Active Hospital Problems Diagnosis *Non-ST elevation myocardial infarction (NSTEMI), initial episode of care Elevated troponin I level Uncontrolled diabetes mellitus with hyperglycemia Acute kidney injury superimposed on chronic kidney disease Leukocytosis, unspecified type Suspected sleep apnea Microcytic anemia COPD (chronic obstructive pulmonary disease) RA (rheumatoid arthritis) CAD (coronary artery disease) Resolved Hospital Problems Diagnosis Date Noted Date Resolved No resolved problems to display. 1. NSTEMI - continue nitrates aspirin, morphine and oxygen. Cardiac cath today 2. DM - uncontrolled. Hold metformin. SSI 3. Hyperglycemia at time of admission 4. Acute on chronic kidney disease - fluids. Monitor renal function post-cath. Fluids 5. COPD 6. History of RA - weekly Humira injections 7. CAD with previous stents placed. Addend: Patient found to have a tight RCA lesion that requires stenting. Follow renal function and plan for interval cath Disposition : TBD Prophylaxis : Lovenox Current Facility-Administered Medications: acetaminophen 650 mg Oral Q4H PRN albuterol 2.5 mg Nebulization RT Q4H PRN aluminum & magnesium hydroxide-simethicone 30 mL Oral Q4H PRN aspirin 325 mg Oral Daily atorvaSTATin 20 mg Oral Nightly dextrose 12.5 g Intravenous PRN enoxaparin (LOVENOX) injection 1 mg/kg Subcutaneous Daily heparin 2,000-4,000 Units Intravenous PRN insulin lispro 0-18 Units Subcutaneous 4x Daily WC and HS metoprolol tartrate 12.5 mg Oral BID morphine 2-6 mg Intravenous Q2H PRN nitroglycerin 1 inch Topical 4 times per day ondansetron 4 mg Intravenous Q6H PRN sodium chloride 0.9% Intravenous Fixed Volume (see admin instruction) sodium chloride 0.9% Intravenous Continuous tiotropium 18 mcg Inhalation Daily Total time of approximately 32 minutes was spent with the patient and/or patient's family, and/or on the patient's floor/unit, of which more than 50% was spent counseling and/or coord ination the patient's care as outlined above. Molina Owens 11/21/2015 12:28 [facility] Portions of this chart may have been created with [employer]book[employer] voice recognition software. Occasi onal wrong-word or sound-alike substitutions may have occurred due to the inherent mary itations of voice recognition software. Please read the chart carefully and recognize, using context, where these substitutions have occurred Marissa Araya MD - 11/21/2015 6:16 AM PDT PATIENT NAME: Jessie Casarez : 1965: AGE: 50 y.o. ADMISSION DATE: 11/20/2015 HOSPITAL DAY NUMBER: 1 PRIMARY CARE: Kyle Richey DO CONSULTING PROVIDER: Marissa Rouse MD CARDIOLOGY PROGRESS NOTE DATE OF SERVICE: 11/21/15 SUBJECTIVE: Patient had chest pain/chest pressure 5/10 this morning around 5:00 that was relieved by on e tablet on nitroglycerin. She is now chest pain free and breathing normally. There is no palpitation dizziness or lightheadedness. There is no ankle or leg swelling. Patient can sleep on one pillow at night without difficulty breathing. CURRENT SCHEDULED MEDS: aspirin 325 mg Oral Daily atorvaSTATin 20 mg Oral Nightly enoxaparin (LOVENOX) injection 1 mg/kg Subcutaneous Daily insulin lispro 0-18 Units Subcutaneous 4x Daily WC and HS metoprolol tartrate 12.5 mg Oral BID nitroglycerin 1 inch Topical 4 times per day nitroglycerin tiotropium 18 mcg Inhalation Daily IV INFUSIONS: sodium chloride 0.9% 125 mL/hr at 11/21/15 0330 OBJECTIVE: PHYSICAL EXAM Latest VS: BP 143/86 mmHg | Pulse 79 | Temp(Src) 36.8 C (98.2 F) (Oral) | Resp 18 | Ht 1.575 m (5' 2.01") | Wt 97.4 kg (214 lb 11.7 oz) | BMI 39.26 kg/m2 | SpO2 99% Admit Weight: Weight: 95.2 kg (209 lb 14.1 oz) Current weight: Weight: 97.4 kg (214 lb 11.7 oz) Vital sign ranges for last 24hrs: Input and output for last 24hrs: Temp: [36.2 C (97.2 F)-36.8 C (98.2 F)] 36.8 C (98.2 F) Pulse: [54-81] 79 Resp: [16-18] 18 BP: (119-151)/(66-93) 143/86 mmHg SpO2 Av.8 % Min: 96 % Max: 100 % 11/18 07 - 11/19 1900 In: 1460 [P.O.:180; I.V.:1280] Out: 2900 [Urine:2900] Constitutional General appearance: Female individual, well developed, well nourished, well groomed, n o acute distress Cardiovascular Palp/Percussion: PMI in 5th ICS at MCL; no lifts, thrills, palp S3 or S4. Auscultation: normal S1 S2; no gallop or rub or click Murmur: none Carotid arteries: pulses 2+, symmetric, no bruits Abdominal aorta: no enlargement or bruits Pedal pulses: pulses 2+, symmetric Peripheral circulation: no cyanosis, clubbing, edema, or varicosities Gastrointestinal Abdomen: soft, non-tender Liver and spleen: no enlargement Mental Status/Neurological Orientation: oriented to time, place, and person Affect/Mood: no depression, anxiety, or agitation Respiratory Respiratory effort: no intercostal retractions or use of accessory muscles Auscultation: no rales, rhonchi, or wheezes LABS Recent Results (from the past 24 hour(s)) POC Glucose Collection Time: 11/20/15 7:11 Result Value Ref Range POC Glucose 238 (H) 70-150 mg/dL Troponin I Collection Time: 11/20/15 8:00 Result Value Ref Range Troponin I 12.39 (HH) <0.06 ng/mL Basic Metabolic Panel Collection Time: 11/20/15 8:00 Result Value Ref Range NA 134 (L) 136-149 mmol/L K 4.1 3.5-5.1 mmol/L CL 106 98-109 mmol/L CO2 19 (L) 24-31 mmol/L ANION GAP 9 3-16 mmol/L GLUCOSE 233 (H) 70-109 mg/dL BUN 35 (H) 7-18 mg/dL Creatinine, Serum/Plasma 1.87 (H) 0.60-1.30 mg/dL eGFR if not 28 (L) >=60 mL/min/1.73m2 CALCIUM 8.3 8.3-10.5 mg/dL BUN/CREA 18.7 ECHO Complete Collection Time: 11/20/15 9:54 Result Value Ref Range LVEF-TTE TRANSTHORACIC ECHO 63 POC Glucose Collection Time: 11/20/15 12:55 Result Value Ref Range POC Glucose 181 (H) 70-150 mg/dL Troponin I Collection Time: 11/20/15 13:41 Result Value Ref Range Troponin I 9.90 (HH) <0.06 ng/mL POC Glucose Collection Time: 11/20/15 17:17 Result Value Ref Range POC Glucose 136 70-150 mg/dL Occult Blood, Stool, Specimen 1 Collection Time: 11/20/15 20:20 Result Value Ref Range STOOL OCCULT BLOOD X1 Negative POC Glucose Collection Time: 11/20/15 21:14 Result Value Ref Range POC Glucose 195 (H) 70-150 mg/dL CBC with Differential Collection Time: 11/21/15 4:37 Result Value Ref Range WBC 14.2 (H) 4.0-11.0 K/uL RBC 4.60 3.70-5.20 M/uL Hgb 8.0 (L) 11.5-16.0 g/dL Hct 28.4 (L) 34.0-47.0 % MCV 61.8 (L) 83.0-101.0 fL MCH 17.5 (L) 28.0-35.0 pg MCHC 28.2 (L) 32.0-36.0 g/dL RDW-CV 22.3 (H) <15.0 % Platelet Count 268 140-440 K/uL MPV 9.0 fL % Neutrophils 52.6 45.0-82.0 % % Lymphocytes 35.3 20.0-45.0 % % Monocytes 6.8 4.0-12.0 % % Eosinophils 2.9 0.0-5.0 % % Basophils 2.4 (H) 0.0-1.0 % Absolute Neutrophils 7.50 1.80-8.50 K/uL Absolute Lymphocytes 5.00 (H) 0.60-3.20 K/uL Absolute Monocytes 1.00 0.00-1.00 K/uL Absolute Eosinophils 0.40 0.00-0.40 K/uL Absolute Basophils 0.30 (H) 0.00-0.10 K/uL Protime INR Collection Time: 11/21/15 4:37 Result Value Ref Range PROTIME 14.1 (H) 11.3-13.9 seconds INR 1.04 0.90-1.10 Basic Metabolic Panel Collection Time: 11/21/15 4:37 Result Value Ref Range NA 138 136-149 mmol/L K 4.1 3.5-5.1 mmol/L CL 112 (H) 98-109 mmol/L CO2 20 (L) 24-31 mmol/L ANION GAP 6 3-16 mmol/L GLUCOSE 158 (H) 70-109 mg/dL BUN 25 (H) 7-18 mg/dL Creatinine, Serum/Plasma 1.72 (H) 0.60-1.30 mg/dL eGFR if not 31 (L) >=60 mL/min/1.73m2 CALCIUM 7.8 (L) 8.3-10.5 mg/dL BUN/CREA 14.5 Iron and Transferrin Collection Time: 11/21/15 4:37 Result Value Ref Range IRON 9 (L) 40-150 ug/dL TRANSFERRIN 243.0 240.0-480.0 mg/dL TIBC 340 235-425 ug/dL % SATURATION 2.6 (L) 20.0-55.0 % ECG 12 lead Collection Time: 11/21/15 5:28 Result Value Ref Range INTERPRETATION TEXT Not Confirmed ECG: Sinus rhythm, nonspecific ST-T abnormalities. ASSESSMENT: 1. Coronary artery disease A. Post non-STEMI. Left heart cath on 11/21/12 showed 95% stenosis of the LCx, 20-30% stenosis of the proximal RCA. Status post PTCA and stentsx2 of the LCx .Since that time, she saw a pvc loader for couple times and loss of follow-up. B. Echocardiogram on 11/20/15 showed Mild biatrial dilatation. Maria l left ventricular size, wall thickness and motion. Preserved left ventricular systolic function. LVEF is 60%. Normal valvular structure. Normal right-sided p ressure. Normal IVC with normal respiratory collapse. C. She started having a chest pain on 11/17/15 while she was working at the [employer]. She de scribed it as a chest pressure 7/10 that radiated across the chest wall and was associated s ome shortness of breath. No palpitation, dizziness or lightheadedness. No sweating. Sh e waited until 11/19/15 when she had recurrent bad chest pain that took her to the ED of [facility] in [place]. She was found to have blood sugar of almost 1000 and tropon in of 0.5. She was transferred to [facility]. D. Patient had chest pain/chest pressure 5/10 this morning around 5:00 that was relieved by one tablet on nitroglycerin. She is now chest pain free and breathing normally. EKG showed nonspecific ST-T abnormalities. There is no signs and symptoms of overt congestive heart failure. She is in a class II of [place] [employer] functional class. There is no fluid re tention on physical examination. She is on a combination of aspirin, Lovenox, metoprolol and atorvas tatin. She is a candidate for a left heart cath to assess her coronary yadira mekhi except that she has acute kidney injury on top of the chronic renal failure.There is concern that she could have a worsening of kidney function from contrast agent that can tip her into stage V kidney failure, requiring hemodialysis. Because of the recurrent chest adina n this morning, I feel obligated to take her to the laboratory technology teacher sooner than later. There is a good chance that she would need PCI which means she will get even more contrast agent. Opti ons of staged intervention was also discussed. 2. Type II diabetes/noncompliant with medication A. She is known to have history of type II diabetes. She was pr escribed on metformin 500 mg twice a day starting in July,. Patient has not started metformin. She is not on diet control either. She doesn't believe that diabetes is real for her. 3. Rheumatoid arthritis A. She has a history of rheumatoid arthritis and received Humira on ce weekly by Dr. Castillo in [place]. 4. Acute kidney injury on top of the stage III chronic kidney disease A. She also seen a scientific publications editor at [facility] but recently los t follow-up. B. Kidney function is not much better today. She is hanging between stage III and stage I V she daily. 5. Obesity A. She has a poor lifestyle. 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 She does not watch what [employer] eats. 6. Inactivity 7. Noncompliance. A. Patient clearly has not started taking metformin as directed. 8. Hyperlipidemia A. she is now on Lipitor. PLAN: I spend time at length talking about natural course, treatment and prognosis of non-STEMI with recurrent chest pain. She will be taken to the laboratory technology teacher for angiogram today.The risks and benefits of the procedu re including alternative treatment were discussed with the patient in length. The patient de cides to proceed with the procedure. Portions of this report were transcribed using voice recognition software. Every effort wa s made to ensure accuracy; however, inadvertent computerized bundle packer errors may be pre sent. Electronically signed by: Marissa Rouse MD 11/21/2015 6:16 Molina Medina MD - 11/20/2015 1:12 PM PDT [facility] Hospitalist Progress Note Jessie Casarez is a 50 y.o. female SUBJECTIVE: Examined by me this afternoon. Patient with known CAD and 2 previous stents 2012, transferr ed from [facility] with chest pain and elevated Tpn. She was seen in evaluation by Cardio logy here. Cardiac enzymes continue to up-trend, and are now 12.3 which are up from 6.3 at t brianna of admission. Known diabetes, which is uncontrolled. Patient has been non-compliant with her oral diabetes medications. Patient is now chest pain free. VITALS: Temp: 36.3 C (97.3 F), Pulse: 54, Resp: 18, BP: 147/78 mmHg, SpO2 98 % on room air at f low rate 2L/min Temp Min: 36.3 C (97.3 F) Max: 37 C (98.6 F) Weight: 95.2 kg (209 lb 14.1 oz) Intake/Output Summary (Last 24 hours) at 11/20/15 1312 Last data filed at 11/20/15 0900 Gross per 24 hour Intake 0 ml Output 1350 ml Net -1350 ml PHYSICAL EXAM: General: NAD Cardiovascular: s1s2 + no m/t/g Respiratory: cta-bl Abdomen: S/nt/nd+bs Extremities: No joint effusions or changes in ROM Skin: No rashes or lesions Neurological: CN's intact 2-12 DIAGNOSTIC STUDIES: Available data and images were reviewed personally. Significant results and findings are a ddressed here or in the Assessment and Plan. Recent Results (from the past 24 hour(s)) ECG 12 lead Result Value Ref Range VENTRICULAR RATE EKG 89 BPM ATRIAL RATE 89 BPM P-R INTERVAL 124 ms QRS DURATION 86 ms Q-T INTERVAL 352 ms Q-T INTERVAL (CORRECTED) 428 ms P WAVE AXIS 46 degrees QRS AXIS -22 degrees T AXIS 107 degrees INTERPRETATION TEXT Normal sinus rhythm Left ventricular hypertrophy lateral ST and T-wave abnormalities concerning for ischemia Abnormal ECG When compared with ECG of 20-NOV-2015 01:53, (Unconfirmed) No significant change was found Confirmed by GEE PERALES, ALVA ([id number]) on 11/20/2015 8:05:17 AM CBC with Differential Result Value Ref Range WBC 18.1 (H) 4.0-11.0 K/uL RBC 5.05 3.70-5.20 M/uL Hgb 8.8 (L) 11.5-16.0 g/dL Hct 31.0 (L) 34.0-47.0 % MCV 61.4 (L) 83.0-101.0 fL MCH 17.4 (L) 28.0-35.0 pg MCHC 28.3 (L) 32.0-36.0 g/dL RDW-CV 22.1 (H) <15.0 % Platelet Count 248 140-440 K/uL MPV 8.8 fL % Neutrophils 76.8 45.0-82.0 % % Lymphocytes 13.2 (L) 20.0-45.0 % % Monocytes 9.2 4.0-12.0 % % Eosinophils 0.0 0.0-5.0 % % Basophils 0.8 0.0-1.0 % Absolute Neutrophils 13.90 (H) 1.80-8.50 K/uL Absolute Lymphocytes 2.40 0.60-3.20 K/uL Absolute Monocytes 1.70 (H) 0.00-1.00 K/uL Absolute Eosinophils 0.00 0.00-0.40 K/uL Absolute Basophils 0.20 (H) 0.00-0.10 K/uL Troponin I Result Value Ref Range Troponin I 6.31 (HH) <0.06 ng/mL Lipid Panel Result Value Ref Range Triglycerides 304 (H) 35-160 mg/dL CHOLESTEROL 257 (H) 150-200 mg/dL HDL 50 28-83 mg/dL Chol/HDL Ratio 5.1 LDL, Calculated 146 (H) <=130 mg/dL B Type Natriuretic Peptide Result Value Ref Range BNP 230 (H) <100 pg/mL Magnesium Result Value Ref Range MG 2.1 1.8-2.5 mg/dL Hemoglobin A1C Result Value Ref Range Hemoglobin A1c 10.7 (H) 4.3-6.0 % Estimated Average Glucose 260 mg/dL Hepatic Function Panel Result Value Ref Range BILIRUBIN TOTAL 0.6 0.1-1.5 mg/dL Total protein 7.1 6.0-7.8 g/dL ALBUMIN 3.4 3.2-5.0 g/dL AST 46 (H) 10-42 U/L ALT 40 6-45 U/L ALK PHOS 69 40-110 U/L GLOBULIN 3.7 2.1-3.8 g/dL Albumin/Globulin ratio 0.9 0.8-2.0 Bilirubin, Direct 0.10 0.00-0.20 mg/dl Beta Hydroxybutyrate, Quant Result Value Ref Range Beta Hydroxybutyrate 0.13 0.02-0.27 mmol/L Basic Metabolic Panel Result Value Ref Range NA 134 (L) 136-149 mmol/L K 4.7 3.5-5.1 mmol/L CL 103 98-109 mmol/L CO2 21 (L) 24-31 mmol/L ANION GAP 10 3-16 mmol/L GLUCOSE 494 (H) 70-109 mg/dL BUN 38 (H) 7-18 mg/dL Creatinine, Serum/Plasma 1.97 (H) 0.60-1.30 mg/dL eGFR if not 27 (L) >=60 mL/min/1.73m2 CALCIUM 9.1 8.3-10.5 mg/dL BUN/CREA 19.3 Phosphorus Result Value Ref Range PHOSPHORUS 4.9 (H) 2.5-4.6 mg/dL Slide Review, Peripheral Smear Result Value Ref Range WBC MORPHOLOGY Normal Platelet Estimate Adequate Adequate HYPOCHROMIA Slight (A) (none) RBC MICROCYTES Moderate (A) (none) Anisocytosis Moderate (A) (none) Iron and Transferrin Result Value Ref Range IRON 12 (L) 40-150 ug/dL TRANSFERRIN 336.0 240.0-480.0 mg/dL TIBC 470 (H) 235-425 ug/dL % SATURATION 2.6 (L) 20.0-55.0 % Ferritin Result Value Ref Range FERRITIN 12 11-<307 ng/mL Vitamin B-12 Result Value Ref Range VITAMIN B-12 467 180-914 pg/mL Folate Result Value Ref Range FOLATE 5.0 (L) >5.8 ng/mL TSH Result Value Ref Range TSH 0.99 0.34-5.60 uIU/mL POC Glucose Result Value Ref Range POC Glucose 453 (H) 70-150 mg/dL PTT Result Value Ref Range PTT 24 22-36 seconds Protime INR Result Value Ref Range PROTIME 13.9 11.3-13.9 seconds INR 1.02 0.90-1.10 POC Glucose Result Value Ref Range POC Glucose 409 (H) 70-150 mg/dL POC Glucose Result Value Ref Range POC Glucose 238 (H) 70-150 mg/dL Troponin I Result Value Ref Range Troponin I 12.39 (HH) <0.06 ng/mL Basic Metabolic Panel Result Value Ref Range NA 134 (L) 136-149 mmol/L K 4.1 3.5-5.1 mmol/L CL 106 98-109 mmol/L CO2 19 (L) 24-31 mmol/L ANION GAP 9 3-16 mmol/L GLUCOSE 233 (H) 70-109 mg/dL BUN 35 (H) 7-18 mg/dL Creatinine, Serum/Plasma 1.87 (H) 0.60-1.30 mg/dL eGFR if not 28 (L) >=60 mL/min/1.73m2 CALCIUM 8.3 8.3-10.5 mg/dL BUN/CREA 18.7 ECHO Complete Result Value Ref Range LVEF-TTE TRANSTHORACIC ECHO 63 POC Glucose Result Value Ref Range POC Glucose 181 (H) 70-150 mg/dL No results found. ASSESSMENT and PLAN: Active Hospital Problems Diagnosis *Non-ST elevation myocardial infarction (NSTEMI), initial episode of care Elevated troponin I level Uncontrolled diabetes mellitus with hyperglycemia Acute kidney injury superimposed on chronic kidney disease Leukocytosis, unspecified type Suspected sleep apnea Microcytic anemia COPD (chronic obstructive pulmonary disease) RA (rheumatoid arthritis) CAD (coronary artery disease) Resolved Hospital Problems Diagnosis Date Noted Date Resolved No resolved problems to display. 1. NSTEMI - continue nitrates aspirin, morphine and oxygen 2. DM - uncontrolled. Hold metformin. SSI 3. Hyperglycemia at time of admission 4. Acute on chronic kidney disease - fluids. Monitor renal function 5. COPD 6. History of RA - weekly Humira injections 7. CAD with previous stents placed Disposition : TBD Prophylaxis : Lovenox Q12 Current Facility-Administered Medications: acetaminophen 650 mg Oral Q4H PRN albuterol 2.5 mg Nebulization RT Q4H PRN aluminum & magnesium hydroxide-simethicone 30 mL Oral Q4H PRN aspirin 325 mg Oral Daily atorvaSTATin 20 mg Oral Nightly dextrose 12.5 g Intravenous PRN heparin 2,000-4,000 Units Intravenous PRN insulin lispro 0-18 Units Subcutaneous 4x Daily WC and HS metoprolol tartrate 12.5 mg Oral BID morphine 2-6 mg Intravenous Q2H PRN nitroglycerin 0.5 inch Topical 4 times per day ondansetron 4 mg Intravenous Q6H PRN sodium chloride 0.9% Intravenous Continuous tiotropium 18 mcg Inhalation Daily Total time of approximately 36 minutes was spent with the patient and/or patient's family, and/or on the patient's floor/unit, of which more than 50% was spent counseling and/or coord ination the patient's care as outlined above. Molina Owens 11/20/2015 13:12 [facility] Portions of this chart may have been created with [employer] voice recognition software. Occasi onal wrong-word or sound-alike substitutions may have occurred due to the inherent mary itations of voice recognition software. Please read the chart carefully and recognize, using context, where these substitutions have occurred Wagner Sandy M D - 11/20/2015 6:19 AM PDT [facility] [place] BRIEF NOTE Patient: Jessie Casarez : 1965: Age: 50 y.o. MedRec: [id number] Admission date: 11/20/2015 Hospital day # : 0 Physician author: Wagner Chamorro MD Today: 11/20/2015 BRIEF Patient says only Metformin for DM but was NOT taking and not checking sugars and had quit her steroid inhaler as caused ALBERTO and no short acting inhaler and sporadic use of her Spiriva , she was put on Prednisone by PCP November 13 40 mg daily with taper with documented NO wheezi ng, does taylor Whitley sees Dr Castillo in [place] q 6 months with labs and does Angi once a week on Fridays Car RRR Lung rhonchi NO wheezing Abd soft NT No more CHP Spoke with Dr Beavers whom will consult STOP Prednisone Wagner Chamorro MD 11/20/2015 6:19 [facility] Dot phrase reference: VSHOSP (VS in table, last 24 hours) MEYLAB (various labs to pull in) DT (date and time) LABRCNTIP[K:3,Na:3 (last 3 sets of labs using potassium and sodium as examples) HGB HCT PLT INR GLU POCGLU Na K BUN CREA, CALCIUM TROPONINI BNP DIGOXIN DDIMERQUANT Portions of this chart may have been created with [employer] voice recognition software. Occasi onal wrong-word or sound-alike substitutions may have occurred due to the inherent mary itations of voice recognition software. Please read the chart carefully and recognize, using context, where these substitutions have occurred documented in this en counter H&P Notes Victoriano Morales DO - 11/20/2015 3:15 AM PDTFormatting of this note might be different f rom the original. [facility] HISTORY & PHYSICAL Patient: Jessie Casarez : 1965: Age: 50 y.o. MedRec: [id number] PCP: Kyle Richey DO Admission date: 11/20/2015 Hospital day #: 0 Physician author: Victoriano Morales DO Today: 11/20/2015 CHIEF COMPLAINT: Chest pain since 11/16 HISTORY OF PRESENT ILLNESS: This is a 50 y.o. female with a history of CAD status post left circumflex stent placement in 2012 at [facility], diabetes which patient says she was told was borderline, COPD who present ed to [facility] with above complaint. According the patient on Friday while at work, just standing at the [employer], she had several episodes of brief midsternal ches t heaviness which she described as pressure and sometimes sharp which would last for a few m inutes and then would go away and was associated with some mild nausea and she vomited once and there was some radiation into her back. She thought was probably due to her cold so did n't think much of it. Of note she was seen with her PCP on for her cough and had s ome chest discomfort then, but it was thought probably due to her cold. On Friday she had just couple more episodes of chest heaviness with some radiation into her back. Patient wo ke up Friday morning with constant midsternal pressure with some nausea, shortness of breath and pain radiation into her back which did not go away. At 2 PM she developed some cold sw eats and pain got worse with some numbness and tingling in her left hand and her pain was se alexis as 8/10 in severity with increased shortness of breath and nausea. Patient finally dec ided to go to emergency room to be evaluated for this. She did tell me that she start takin g baby aspirin on Friday because of her chest pain episodes. Patient was initially evaluated at [facility] emergency department where on blo od work she was noted to have very high blood sugar of 935 on her chemistry panel along with low sodium of 121, potassium 4.8 and creatinine of 2.23, BUN 43. Her troponin T came back elevated at 0.243. Reportedly her chest x-ray was normal. EKG didn't show any signs of ST elevation or depression. Patient was treated for her chest pain with 3 doses of sublingual nitroglycerin which reduced her pain down from 8/10 to 5/10 in severity and after she got do se of IV morphine her chest pain resolved and hasn't come back since. Patient was given 10 units IV regular insulin and 2 L of normal saline. Both Dr. Walsh and myself were contacted through transfer Center and patient was asked to be transferred to our facility further treatment due to the lack of cardiology services at other facility. After patient arrived to this facility she remains chest pain-free, however during transpor t she developed some mid back discomfort which has now improved. Her blood sugar check at bedside showed blood sugar down to 453. Hemoglobin is slightly do wn from 9.7 to 8.8, MCV low at 61.4 and white count elevated at 18.1. Patient's BMP shows c reatinine improved down to 1.97 and BUN down to 38. Troponin however came back very high at 6.31. BNP also elevated slightly at 230. According to the patient she has very [place] appointment [place] on Friday and she is worried about missing that. 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, + for TB, treated with DOT through [facility] RA (rheumatoid arthritis) ([facility]) 2001 Pleural effusion 10/2011, 11/2011 secondary to RA?, negative for TB 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 LA (myocardial infarction) ([facility]) 11/2012 CAD (coronary artery disease) CKD (chronic kidney disease) Tubal Obesity Acid reflux disease Past Surgical History Procedure Laterality Date Coronary angioplasty with stent placement 11/2012 Left Circumflex BMS x 1 at [facility] Cholecystectomy Salpingectomy Left for ectopic Thoracentesis 11/09/2011, 12/09/2011, 01/2012 Tonsillectomy childhood Colonoscopy 09/04/2015 FAMILY HISTORY: family history includes Arthritis in her sister; Diabetes in her father, mother, and sister ; Heart attack in her father. SOCIAL HISTORY: reports that she quit smoking about 3 years ago. Her smoking use included Cigarettes. She has never used smokeless tobacco. She reports that she does not drink alcohol or use illicit drugs. REVIEW OF SYSTEMS: ROS See HPI also positive for dry mouth, significant thirst and frequent urination. She has be en increasingly more short of breath the last previous 2 weeks after she developed bad cold with significant cough, nasal congestion, which has improved since then except she still has some shortness of breath with exertion. With her cold symptoms she was having some nonspec ific chest discomfort from severe coughing. She was started on prednisone taper by her PCP on her previous visit and is currently snf through the taper. Questions asked in ROS include: Constitutional: fevers, sweats, chills, change in appetite, fatigue HEENT: nasal congestion, runny nose, sore throat, pain swallowing, neck pain, neck masses Cards: chest pain, dyspnea on exertion, palpitations, lightheadness,dizziness, leg swelling . Resp: shortness of breath, wheezing, chest congestion, cough with/with out phlegm, hemoptys is. GI: nausea, vomitting, diarrhea, constipation, abdominal pain, distention, acid reflux. : dysuria, increased frequency, urgency, difficulty to urinate. Neuro: headaches, change in vision, numbness or tingling, generalized or localized weaknes s. Remainder of other 11 points of review of systems have been reviewed and negative, except per HPI. HOME MEDICATIONS: Current Discharge Medication List CONTINUE these medications which have NOT CHANGED Details adalimumab (HUMIRA PEN) 40 mg/0.8 mL injection (pen) Inject 0.8 mLs under the skin every 7 days. albuterol 90 mcg/puff inhaler Inhale 2 puffs into the lungs every 6 hours as needed for Whe ezing or Shortness of Breath. ANUCORT-HC 25 MG suppository Insert 1 suppository every 4-6 hours as needed Refills: 0 aspirin 81 mg chewable tablet Take 81 mg by mouth Daily. lisinopril (PRINIVIL, ZESTRIL) 10 mg tablet Take one tablet daily Refills: 0 metFORMIN (GLUCOPHAGE) 500 mg tablet Take one tablet twice daily Refills: 0 predniSONE (DELTASONE) 10 mg tablet Take by mouth Daily. Take 4 tabs daily x 3 days, then 3 tabs x 3 days, then 2 tabs x 3 days, then 1 tab x 3 days, then stop. Start 2 tabs on 11/19. tiotropium (SPIRIVA) 18 mcg inhalation capsule Inhale 1 capsule into the lungs Daily. Qty: 90 capsule, Refills: 3 ALLERGIES: No Known Allergies VITAL SIGNS: Temp: 36.4 C (97.5 F), Pulse: 89, Resp: 21, BP: 143/77 mmHg, SpO2 100 % on room air at flow rate L/min Temp Min: 36.4 C (97.5 F) Max: 36.4 C (97.5 F) Weight: 95.2 kg (209 lb 14.1 oz) PHYSICAL EXAMINATION: Physical exam: General: A&O x 3, no apparent distress, affect pleasant HEENT: Head normocephalic and atraumatic, eyes PERRLA, EOMI. Oral mucosa dry. Neck supple, no masses or lymphadenopathy. Cardiac: RRR, no murmurs, gallops or rubs. Resp: CTAB, no wheezing or rales or crackles appreciated on auscultation. Abdominal: decreased bowel tones, soft, non tender to palpation, no guarding or rebound ten derness. No masses or hepatosplenomegally appreciated. Rectal deferred. : deferred. Extremities: no cyanosis, clubbing, edema or bruizing. Skin: intact Neuro: non focal exam is overall unremarkable. DIAGNOSTIC STUDIES: Recent Labs Lab 11/20/15156 WBC 18.1* HGB 8.8* HCT 31.0* PLT Adequate | 248 NEUPCT 76.8 MONPCT 9.2 No results for input(s): PROTIME, INR in the last 168 hours. No results for input(s): PTT in the last 168 hours. Recent Labs Lab 11/20/15156 GLU 494* NA 134* K 4.7 CL 103 CO2 21* ANIONGAP 10 BUN 38* CREA 1.97* GFRNONAA 27* CALCIUM 9.1 ALBUMIN 3.4 TOTALPROTEIN 7.1 BILITOT 0.6 ALKPHOS 69 ALT 40 AST 46* Recent Labs Lab 11/20/15 0157 BNP 230* Recent Labs Lab 11/20/15 0157 MG 2.1 Recent Labs Lab 11/20/15 0157 PHOS 4.9* No results for input(s): AMYLASE, LIPASE in the last 168 hours. No results for input(s): AMMONIA in the last 168 hours. No results for input(s): CK, CKMB in the last 168 hours. Invalid input(s): TROPONINI, CKTOTAL No results for input(s): PHART, PO2ART, LCO8BCJ, BHG3NAS, BEART, G7RATMRU in the last 168 h ours. No results for input(s): SPECSOURCE, PHPOCB, HCO3, TCO2, BEART, BE, [id number] in the last 16 8 hours. Invalid input(s): ZWNRC8SD, KZKD4LX (dot meylab) Xray Results: No results found. I reviewed imaging EKG Results (I reviewed EKG) EKG performed at other facility showed patient to be in sinus tachycardia with ventricular rate of 112 BPM, otherwise unremarkable EKG. EKG repeated here when patient first arrived shows patient in normal sinus rhythm, rate 89 bpm, otherwise no other changes from previous EKG. ASSESSMENT: Principal Problem: Non-ST elevation myocardial infarction (NSTEMI), initial episode of care Active Hospital Problems Diagnosis Non-ST elevation myocardial infarction (NSTEMI), initial episode of care Elevated troponin I level Uncontrolled diabetes mellitus with hyperglycemia Acute kidney injury superimposed on chronic kidney disease Microcytic anemia Leukocytosis, unspecified type Suspected sleep apnea COPD (chronic obstructive pulmonary disease) RA (rheumatoid arthritis) CAD (coronary artery disease) Resolved Hospital Problems Diagnosis No resolved problems to display. PLAN: Non-ST elevation myocardial infarction (NSTEMI), initial episode of care - Patient presents with chest pain at rest associated with shortness of breath, diaphoresis , nausea with evidence of elevated and rising troponin. Patient is now still chest pain-brian e status post nitroglycerin and morphine, which she received at other hospital ER. - Patient's EKG without any evidence of ST segment elevation. - Patient has high risk factors for heart disease including diabetes, which appears to be u ncontrolled, prior history of heart disease status post left circumflex stent placement as w ell as family history of heart disease. - Patient's initial troponin other facility was mildly elevated, however repeat troponin do ne here is significantly much higher. - Currently patient is chest pain-free. - Patient will be admitted to step down and started on heparin drip, cardiac protocol. Jony l also place 1/2 inch Nitropaste every 6 hours. Oxygen 2 L. - We'll check 2 more serial troponins every 6 hours. I will also order an echocardiogram f or this morning to further evaluate for any evidence of LV or RV dysfunction or wall motion abnormalities. - Due to patient's high blood sugars and elevated creatinine, patient is not a candidate fo r angiogram at this time due to risk of contrast dye associated worsening renal failure that might require dialysis. - We'll hydrate patient aggressively with normal saline at 125 cc an hour to hydrate patien ts kidneys to increase likelihood she'll tolerate angioplasty with a next 24-48 hours if ind icated. Will monitor for any signs of fluid overload based on patient's elevated BNP. - We'll let patient have clear liquids, nothing by mouth after 6 AM. - patient already took 81 mg ASA. Will give 325 mg PO x 1 this am. Elevated troponin I level - Patient's troponin is rising significantly up from 0.25 all the away up to 6.31, which hutson ggests significant ischemic stress on the heart, which is upproportional to patient's renal dysfunction, hence more concerning. - check 2 more serial troponin. Uncontrolled diabetes mellitus with hyperglycemia - patient had hx of increased thirst and urination recently and did present with BG of > 90 0 initially, all consistent with poor control of her diabetes. - s/p 2 L of IVF and 10 Units IV Insulin, her blood glucose is already down to 453. - will give additional 10 units of Regular insulin x1. Will also give patient 10 units of L antus x 1. - start on high algorithm Lispro SSI - Will reassess later today on further insulin needs. - I'm checking hemoglobin A1c level to see patient's most recent blood sugar control as out patient in the last 30-90 days. - Patient will most likely need diabetic education prior to discharge. She will need to be taught how to check her blood sugars and provide with glucose meter if she doesn't have one . - I will order diabetic education while in the hospital. Acute kidney injury superimposed on chronic kidney disease - patient presented with clinical evidence of volume depletion and elevation of her BUN/cre atinine above her base line renal dysfunction. - most likely in part due to her uncontrolled diabetes with hyperglycemia. - will hydrate with NS as noted above. - repeat BMP in 4 hours, then next am. - monitor strict ins and outs and daily weights. Perform bladder scans and do straight cat h as needed for elevated PVR greater than 450. Microcytic anemia - Patient is chronic underlying anemia, most likely secondary to chronic renal disease and history of RA and possibly iron deficiency anemia based on low MCV. - Patient's hemoglobin did trend down since she received IV fluids at other facility, hence suspect its partly dilutional. - Check iron studies. Patient denies any melena, however will check stool occult 3 to ru le out possible GI blood loss. Leukocytosis, unspecified type - questionable etiology. Possibly secondary to dehydration or acute phase reaction. Patient has also been on oral Prednisone which could contribute to white count elevation. Suspected sleep apnea - according to patient she was never tested for this, but does admit that she does snore at night. - will place on continuous pulse oximetry, sleep apnea protocol. COPD (chronic obstructive pulmonary disease) - clinically patient is currently stable without any wheezing on exam, but has complained o f chronic dyspnea on exertion and had also had recent URI cold as well. - will start on Albuterol neb prn dyspnea. Continue Spiriva. Start on Acapella valve. RA (rheumatoid arthritis) - on outpatient weekly Humira infusion. CAD (coronary artery disease) - s/p circumflex stent 2012. - will check fasting lipid panel. I reviewed and summarized old records. DVT Prophylaxis heparin drip Code Status Full code Medical Decision Maker Patient CMS Documentation I expect this patient will be hospitalized for greater than 2-midnights and expect the post -hospital plan to be discharge to home or to an adult foster home. Time spent with the patient (of which more than 50% was in counseling and/or coordination t he patient's care as outlined above) was 65 minutes. Electronically signed by: Victoriano Morales DO 11/20/2015 3:15 [facility] Dot phrase reference: VSHOSP (VS in table, last 24 hours) MEYLAB (various labs to pull in) DT (date and time) LABRCNTIP[K:3,Na:3 (last 3 sets of labs using potassium and sodium as examples) HGB HCT PLT INR GLU POCGLU Na K BUN CREA, CALCIUM TROPONINI BNP DIGOXIN Portions of this chart may have been created with Blackbook[employer] voice recognition software. Occasi onal wrong-word or sound-alike substitutions may have occurred due to the inherent mary itations of voice recognition software. Please read the chart carefully and recognize, using context, where these substitutions have occurred documented in this encounter Procedure Notes Marissa Rouse MD - 11/21/2015 1:43 PM PDTAssociated Order(s): CV CARDIAC PROCEDUREFor matting of this note might be different from the original. CARDIAC CATHETERIZATION and CORONARY ANGIOGRAPHY PATIENT NAME/: Jessie Casarez, (1965) DATE OF PROCEDURE: 11/21/2015 HOUSE FURNISHINGS SUPERVISOR: Marissa Rouse MD PROCEDURES PERFORMED: Coronary Angiography Left Heart Catheterization Left Ventriculography Indications: Acute coronary syndrome DESCRIPTION OF PROCEDURE: Informed consent was obtained from the patient, and a time-out was performed to verify the patient's identification and planned procedure. The patient's right wrist was then prepped and draped in the usual sterile fashion, and anesthetized with 1 mL of buffered 1% lidocaine . For arterial access modified Seldinger technique was used to place a 6 Fr. sheath in the right radial artery (a normal Marcos's test was performed prior to the procedure). Right hea rt catheterization was not performed on this patient. After crossing the aortic valve, left ventriculography was performed in the LOPEZ projection. Selective coronary angiogram was the n performed in several sagittal and oblique projections. Multipurpose diagnostic catheters w ere used for this procedure. The patient received a total of 2 mg of Versed and 100 mcg of fentanyl intravenously for conscious sedation during the procedure. A total of 90 mL Omnipa que 350 contrast was utilized. During procedure a total of 400 mcg nitroglycerin, and 0 mcg nicardipine were given via the radial sheath, and 4000 units heparin was given intravenousl y. The procedure had no immediate complications. At the conclusion of the procedure, the sheath was removed and hemostasis obtained with a T R hemostatic band. FINDINGS: Hemodynamics: Ao - 173/98 mm Hg with a mean of 130 mm Hg LV - 190/35 mm Hg LVEDP - 41 mm Hg Left ventriculography: The left ventricular size and function were normal. LVEF is calcul ated at 65%. There is no mitral valve regurgitation noted. Left main artery: The left main artery is a large caliber vessel that bifurcates into the left anterior descending artery and left circumflex artery. Left main artery has mild diffu se disease. Left anterior descending artery: The left anterior descending artery is a large caliber ve ssel that wraps around the apex and gives rise to 2 diagonal branches. The vessel has mild diffuse disease. It gives rise to 1 diagonal branches. There is borderline 50-60% stenosis at the proximal portion of the first diagonal branch. Left circumflex artery: The left circumflex artery is a large caliber vessel that is co-do minant. The vessel has Stents placement at the proximal and midportion of the vessel.. It gives rise to 1 OM branches. Stent is widely open. There is borderline 60-70% stenosis at the distal portion of the LCx right after the stents. Right coronary artery: The right coronary artery is a large caliber vessel that is co-haider nant. The vessel has There is a tight 90% stenosis with a translucency at the midportion o f the RCA.. It gives rise to a PDA and posterior lateral branches. CONCLUSIONS: 1. Coronary artery disease; tight 90% stenosis at the midportion of the large caliber RCA w ith ANUJA grade 3 flow. There is also a borderline lesions at the distal portion of the LCx and proximal portion of D1. 2. There is a co dominate circulation. 3. Normal LV systolic function with an EF of 65% 4. Systemic blood pressure is moderately elevated. 5. There was successful hemostasis with a TR hemostatic band. PLAN: 1. Consider PCI of mid RCA in 3 days to minimize contrast agent-induced nephropathy.. ARY CARE PROVIDER: Kyle Richey DO documented in this encounter Consult Notes Barb Varela RN - 11/21/2015 8:52 AM PDTAssociated Order(s): IP CONSULT TO DIABETE Lav[place] SPECIALISTKerriana was given a Lali EZ Contour glucometer and tested with ease with results of 121 before dinner.She will need an RX for ongoing testing supplies as well as a referral for outpatient education upon discharge. They are showing an interest in controlling her blo od glucose. She is registered for the December Italian group session and her also plan s to attend. Her speaks Italian only so teaching was conducted in Italian and all alberto ndouts were given to them in Italian and Ukrainian including a comprehensive diabetic educatio n booklet that was mostly reviewed with them. She sets a goal to test daily mostly in pairs. Her discharge instructions could indicate more testing indicated. Reading a food label was taught ad well as the impact of various nutrients upon blood gluco se. Her goal is to take 45gm of carb at each meal and 15gm each snack. She will benefit with review of all diabetic education.Electronically signed by Barb Varela RN at 016 9:00 AM Marissa Araya MD - 11/20/2015 8:18 AM PDT PATIENT NAME: Jessie Casarez : 1965: AGE: 50 y.o. ADMISSION DATE: 11/20/2015 HOSPITAL DAY NUMBER: 0 PRIMARY CARE: Kyle Richey DO REFERRING PROVIDER: Wagner Chamorro M.D. CONSULTING PROVIDER: Marissa Rouse MD CARDIOLOGY CONSULTATION DATE OF CONSULTATION: 11/20/15 REASON FOR CONSULT: Non-STEMI with chest pain HISTORY OF PRESENT ILLNESS: Jessie Casarez is a 50 y.o. female with a history of coronary artery disease, type II di abetes, rheumatoid arthritis, , stage III chronic kidney disease, obesity, inactivity, nonco mpliance. She was admitted to [facility] on 11/20/2015 for Non-ST el evation myocardial infarction (NSTEMI), initial episode of care . She had non-STEMI and underwent PTCA and stents 2 in 2012 at [facility]. Since that time, she saw a pvc loader for couple times and loss of follow-up. About 2 weeks ago, she had a head cold associated with cough and was seen by Dr. Richey, he r PCP at [facility]. Her symptoms did not respond to azithromycin pack. She was pu t on prednisone 40 mg a day starting on November 14, 2015. She started having a chest pain on 11/17/15 while she was working at the [employer]. She describ ed it as a chest pressure /10 that radiated across the chest wall and was associated some s hortness of breath. No palpitation, dizziness or lightheadedness. No sweating. She waited until 11/19/15 when she had recurrent bad chest pain that took her to the ED of [facility] in [place]. She was found to have blood sugar of almost 1000 and troponin of 0.5 . She was transferred to [facility]. Patient was treated with aspirin, heparin IV. She is completely chest pain-free at the [facility]. Her breathing is back to normal. She feel comfortable at this time. She has a poor lifestyle. 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 She de nies any regular exercise program. She does not watch what she eats. 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, + for TB, treated with DOT through [facility] RA (rheumatoid arthritis) ([facility]) 2001 Pleural effusion 10/2011, 11/2011 secondary to RA?, negative for TB 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 LA (myocardial infarction) ([facility]) 11/2012 CAD (coronary artery disease) CKD (chronic kidney disease) Tubal Obesity Acid reflux disease CURRENT PROBLEMS Principal Problem: Non-ST elevation myocardial infarction (NSTEMI), initial episode of care Active Problems: Elevated troponin I level Uncontrolled diabetes mellitus with hyperglycemia Acute kidney injury superimposed on chronic kidney disease Leukocytosis, unspecified type RA (rheumatoid arthritis) CAD (coronary artery disease) COPD (chronic obstructive pulmonary disease) Suspected sleep apnea Microcytic anemia PAST SURGICAL HISTORY (INCLUDING PROCEDURES) Past Surgical History Procedure Laterality Date Coronary angioplasty with stent placement 11/2012 Left Circumflex BMS x 1 at [facility] Cholecystectomy Salpingectomy Left 1990s for ectopic Thoracentesis 11/09/2011, 12/09/2011, 01/2012 Tonsillectomy childhood Colonoscopy 09/04/2015 FAMILY HISTORY Family History Problem Relation Age of Onset Diabetes Mother Diabetes Father Heart attack Father Diabetes Sister Arthritis Sister SOCIAL HISTORY History Social History Marital Status: Spouse Name: N/A Number of Children: N/A Years of Education: N/A 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 [employer] Social History Main Topics Smoking status: Former Smoker Types: Cigarettes Quit date: 06/11/2012 Smokeless tobacco: Never Used Alcohol Use: No Drug Use: No Sexual Activity: Not on file Other Topics Concern Not on file Social History Narrative Merged History Encounter Lives: in [place] With: Grew up: [place], [place], [place], [place], [place], [place] Has previously lived in: the [place] and [place] Exposure to toxic chemicals: no Exposure to asbestos: no Exposure to tuberculosis: presumably yes Has had a PPD or Quantiferon be fore: yes Has pets at home: no Has ever owned birds: no Other animal exposures: no Hobbies: watching the TV OUTPATIENT MEDICATIONS Prescriptions prior to admission Medication Sig Dispense Refill adalimumab (HUMIRA PEN) 40 mg/0.8 mL injection (pen) Inject 0.8 mLs under the skin ever y 7 days. albuterol 90 mcg/puff inhaler Inhale 2 puffs into the lungs every 6 hours as needed for Wheezing or Shortness of Breath. ANUCORT-HC 25 MG suppository Insert 1 suppository every 4-6 hours as needed 0 aspirin 81 mg chewable tablet Take 81 mg by mouth Daily. lisinopril (PRINIVIL, ZESTRIL) 10 mg tablet Take one tablet daily 0 metFORMIN (GLUCOPHAGE) 500 mg tablet Take one tablet twice daily 0 predniSONE (DELTASONE) 10 mg tablet Take by mouth Daily. Take 4 tabs daily x 3 days, t hen 3 tabs x 3 days, then 2 tabs x 3 days, then 1 tab x 3 days, then stop. Start 2 tabs on . tiotropium (SPIRIVA) 18 mcg inhalation capsule Inhale 1 capsule into the lungs Daily. 9 0 capsule 3 CURRENT SCHEDULED MEDS: aspirin 325 mg Oral Daily insulin lispro 0-18 Units Subcutaneous 4x Daily WC and HS nitroglycerin 0.5 inch Topical 4 times per day tiotropium 18 mcg Inhalation Daily IV INFUSIONS: heparin infusion 1,000 Units/hr (11/20/15 0351) sodium chloride 0.9% 125 mL/hr at 11/20/15 0336 ALLERGIES No Known Allergies REVIEW OF SYSTEMS Constitutional: Complaining of feeling fatigued. Denies fever, chills, weight loss, jag den weight gain. Eyes: Denies double vision, sudden vision loss. Ears/Nose/Throat: Denies tinnitus, decreased hearing, nosebleeds. Cardiovascular: Complaining of chest pain. Denies palpitations, syncope, presyncope, dizz iness, orthopnea, PND, peripheral edema. Respiratory: Complaining of cough and shortness of breath. Denies wheezing, sleep apnea, snoring. Gastrointestinal: Denies nausea, vomiting, diarrhea, abdominal pain. Genitourinary: Denies dysuria, increased urinary frequency, nocturia. Musculoskeletal: Denies back pain, arthritis, muscle weakness, myalgias. Skin: Denies rash, itching, suspicious lesions. Neurologic: Denies transient paralysis, paresthesias, seizures, tremors, memory impairmen t, depression, sciatica, balance problems, headache, anxiety. Heme/Lymphatic: Denies abnormal bruising, bleeding, enlarged lymph nodes. Endocrine: Denies cold intolerance, heat intolerance, polydipsia, polyuria. PHYSICAL EXAM Latest VS: BP 147/78 mmHg | Pulse 76 | Temp(Src) 36.6 C (97.9 F) (Oral) | Resp 16 | Ht 1.575 m (5' 2.01") | Wt 95.2 kg (209 lb 14.1 oz) | BMI 38.38 kg/m2 | SpO2 100% Vital sign ranges for last 24hrs: Input and output for last 24hrs: Temp: [36.4 C (97.5 F)-37 C (98.6 F)] 36.6 C (97.9 F) Pulse: [76-89] 76 Resp: [12-21] 16 BP: (137-147)/(77-82) 147/78 mmHg SpO2 Av.8 % Min: 99 % Max: 100 % Flow (L/min) Av Min: 2 Max: 2 11/17 1901 - 11/19 0700 In: 0 Out: 950 [Urine:950] Body mass index is 38.38 kg/(m^2).; Body surface area is 2.04 meters squared. Constitutional General appearance: Obese female individual, well developed, well nourished, well groo med, no acute distress Cardiovascular NYHA Class: II- Symptoms with moderate exertion Palp/Percussion: PMI in 5th ICS at [facility]; no lifts, thrills, palp S3 or S4. Auscultation: normal S1 S2; no gallop or rub or click Murmur: none Carotid arteries: pulses 2+, symmetric, no bruits Abdominal aorta: no enlargement or bruits Femoral arteries: pulses 2+, symmetric Pedal pulses: pulses 2+, symmetric Peripheral circulation: no cyanosis, clubbing, edema, or varicosities Gastrointestinal Abdomen: soft, non-tender, no masses Liver and spleen: no enlargement Mental Status/Neurological Orientation: oriented to time, place, and person Affect/Mood: no depression, anxiety, or agitation Respiratory Respiratory effort: no intercostal retractions or use of accessory muscles Auscultation: no rales, rhonchi, or wheezes Eyes Conjunctiva & lids: conjunctiva and lids normal Ears, Nose and Throat Lips: no pallor or cyanosis Neck Jugular veins: no significant JVD; no a, v or rodriguez waves Extremities Digits and nails: no clubbing, cyanosis, or petechiae Skin Inspection: no visible rashes, lesions, or ulcerations LABS Recent Results (from the past 24 hour(s)) ECG 12 lead Collection Time: 11/20/15 1:54 Result Value Ref Range VENTRICULAR RATE EKG 89 BPM ATRIAL RATE 89 BPM P-R INTERVAL 124 ms QRS DURATION 86 ms Q-T INTERVAL 352 ms Q-T INTERVAL (CORRECTED) 428 ms P WAVE AXIS 46 degrees QRS AXIS -22 degrees T AXIS 107 degrees INTERPRETATION TEXT Normal sinus rhythm Left ventricular hypertrophy lateral ST and T-wave abnormalities concerning for ischemia Abnormal ECG When compared with ECG of 20-NOV-2015 01:53, (Unconfirmed) No significant change was found Confirmed by ALVA FLYNN MD ([id number]) on 11/20/2015 8:05:17 AM CBC with Differential Collection Time: 11/20/15 1:57 Result Value Ref Range WBC 18.1 (H) 4.0-11.0 K/uL RBC 5.05 3.70-5.20 M/uL Hgb 8.8 (L) 11.5-16.0 g/dL Hct 31.0 (L) 34.0-47.0 % MCV 61.4 (L) 83.0-101.0 fL MCH 17.4 (L) 28.0-35.0 pg MCHC 28.3 (L) 32.0-36.0 g/dL RDW-CV 22.1 (H) <15.0 % Platelet Count 248 140-440 K/uL MPV 8.8 fL % Neutrophils 76.8 45.0-82.0 % % Lymphocytes 13.2 (L) 20.0-45.0 % % Monocytes 9.2 4.0-12.0 % % Eosinophils 0.0 0.0-5.0 % % Basophils 0.8 0.0-1.0 % Absolute Neutrophils 13.90 (H) 1.80-8.50 K/uL Absolute Lymphocytes 2.40 0.60-3.20 K/uL Absolute Monocytes 1.70 (H) 0.00-1.00 K/uL Absolute Eosinophils 0.00 0.00-0.40 K/uL Absolute Basophils 0.20 (H) 0.00-0.10 K/uL Troponin I Collection Time: 11/20/15 1:57 Result Value Ref Range Troponin I 6.31 (HH) <0.06 ng/mL Lipid Panel Collection Time: 11/20/15 1:57 Result Value Ref Range Triglycerides 304 (H) 35-160 mg/dL CHOLESTEROL 257 (H) 150-200 mg/dL HDL 50 28-83 mg/dL Chol/HDL Ratio 5.1 LDL, Calculated 146 (H) <=130 mg/dL B Type Natriuretic Peptide Collection Time: 11/20/15 1:57 Result Value Ref Range BNP 230 (H) <100 pg/mL Magnesium Collection Time: 11/20/15 1:57 Result Value Ref Range MG 2.1 1.8-2.5 mg/dL Hemoglobin A1C Collection Time: 11/20/15 1:57 Result Value Ref Range Hemoglobin A1c 10.7 (H) 4.3-6.0 % Estimated Average Glucose 260 mg/dL Hepatic Function Panel Collection Time: 11/20/15 1:57 Result Value Ref Range BILIRUBIN TOTAL 0.6 0.1-1.5 mg/dL Total protein 7.1 6.0-7.8 g/dL ALBUMIN 3.4 3.2-5.0 g/dL AST 46 (H) 10-42 U/L ALT 40 6-45 U/L ALK PHOS 69 40-110 U/L GLOBULIN 3.7 2.1-3.8 g/dL Albumin/Globulin ratio 0.9 0.8-2.0 Bilirubin, Direct 0.10 0.00-0.20 mg/dl Beta Hydroxybutyrate, Quant Collection Time: 11/20/15 1:57 Result Value Ref Range Beta Hydroxybutyrate 0.13 0.02-0.27 mmol/L Basic Metabolic Panel Collection Time: 11/20/15 1:57 Result Value Ref Range NA 134 (L) 136-149 mmol/L K 4.7 3.5-5.1 mmol/L CL 103 98-109 mmol/L CO2 21 (L) 24-31 mmol/L ANION GAP 10 3-16 mmol/L GLUCOSE 494 (H) 70-109 mg/dL BUN 38 (H) 7-18 mg/dL Creatinine, Serum/Plasma 1.97 (H) 0.60-1.30 mg/dL eGFR if not 27 (L) >=60 mL/min/1.73m2 CALCIUM 9.1 8.3-10.5 mg/dL BUN/CREA 19.3 Phosphorus Collection Time: 11/20/15 1:57 Result Value Ref Range PHOSPHORUS 4.9 (H) 2.5-4.6 mg/dL Slide Review, Peripheral Smear Collection Time: 11/20/15 1:57 Result Value Ref Range WBC MORPHOLOGY Normal Platelet Estimate Adequate Adequate HYPOCHROMIA Slight (A) (none) RBC MICROCYTES Moderate (A) (none) Anisocytosis Moderate (A) (none) Iron and Transferrin Collection Time: 11/20/15 1:57 Result Value Ref Range IRON 12 (L) 40-150 ug/dL TRANSFERRIN 336.0 240.0-480.0 mg/dL TIBC 470 (H) 235-425 ug/dL % SATURATION 2.6 (L) 20.0-55.0 % Ferritin Collection Time: 11/20/15 1:57 Result Value Ref Range FERRITIN 12 11-<307 ng/mL Vitamin B-12 Collection Time: 11/20/15 1:57 Result Value Ref Range VITAMIN B-12 467 180-914 pg/mL Folate Collection Time: 11/20/15 1:57 Result Value Ref Range FOLATE 5.0 (L) >5.8 ng/mL TSH Collection Time: 11/20/15 1:57 Result Value Ref Range TSH 0.99 0.34-5.60 uIU/mL POC Glucose Collection Time: 11/20/15 2:23 Result Value Ref Range POC Glucose 453 (H) 70-150 mg/dL PTT Collection Time: 11/20/15 3:41 Result Value Ref Range PTT 24 22-36 seconds Protime INR Collection Time: 11/20/15 3:41 Result Value Ref Range PROTIME 13.9 11.3-13.9 seconds INR 1.02 0.90-1.10 POC Glucose Collection Time: 11/20/15 4:31 Result Value Ref Range POC Glucose 409 (H) 70-150 mg/dL POC Glucose Collection Time: 11/20/15 7:11 Result Value Ref Range POC Glucose 238 (H) 70-150 mg/dL IMAGING Fl Esophagram Complete 10/31/2015 FL ESOPHAGRAM COMPLETE 10/31/2015 9:00 AM HISTORY: Intermittent mid esophageal dysphagia with liquids. COMPARISON: None. PROTOCOL: The patient was initially administered effervescent crystals followed by oral barium. Fluoroscopic images of the esophagus and sto mach region were obtained. FINDINGS: The esophagus demonstrates a normal mucosal pattern an d contour. There is brisk emptying into the stomach. Visualized stomach is unremarkable. The re is no evidence for reflux. IMPRESSION - Normal esophagogram. Dictated and Signed by: Kamran Hernandez MD Electronically signed: 10/31/2015 9:54 AM ECG: Sinus rhythm, nonspecific ST-T abnormalities. ASSESSMENT: 1. Coronary artery disease A. Post non-STEMI. Left heart cath on 11/21/12 showed 95% stenosis of the LCx, 20-30% sten osis of the proximal RCA. Status post PTCA and stentsx2 of the LCx.Since that time, she saw a pvc loader for couple times and loss of follow-up. B. She started having a chest pain on 11/17/15 while she was working at the [employer]. She cong cribed it as a chest pressure /10 that radiated across the chest wall and was associated so me shortness of breath. No palpitation, dizziness or lightheadedness. No sweating. She wa ited until 11/19/15 when she had recurrent bad chest pain that took her to the ED of [facility] in [place]. She was found to have blood sugar of almost 1000 and troponin of 0.5. She was transferred to [facility]. Patient was treated with aspirin, heparin IV. She is completely chest pain-free at the mo ment. Her breathing is back to normal. Troponin went up to 6.3. EKG showed nonspecific S T-T abnormalities. There is no signs and symptoms of overt congestive heart failure. She is in a class II o f [place] [employer] functional class. There is no fluid retention on physical exam ination. A patient meets the criteria for non-STEMI. It is most likely that her non-STEMI was trig gered by noncompliance of diabetic medications causing hyperosmolar syndrome. She will be a candidate for a left heart cath to assess her coronary anatomy except that s he has acute kidney injury on top of the chronic renal failure. Heart cath should be done w hen her kidney function is more stable. There is concern that she could have a worsening of kidney function from contrast agent that can tip her into stage V kidney failure, requiring hemodialysis. 2. Type II diabetes/noncompliant with medication A. She is known to have history of type II diabetes. She was prescribed on metformin 500 mg twice a day starting in July,. Patient has not started metformin. She is not on diet control either. She doesn't believe that diabetes is real for her. 3. Rheumatoid arthritis A. She has a history of rheumatoid arthritis and received Humira once weekly by Dr. Castillo in [place]. 4. Acute kidney injury on top of the stage III chronic kidney disease A. She also seen a scientific publications editor at [facility] but recently lost follow-up. 5. Obesity A. She has a poor lifestyle. 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 Sh e denies any regular exercise program. She does not watch what she eats. 6. Inactivity 7. Noncompliance. A. Patient clearly has not started taking metformin as directed. 8. Hyperlipidemia A. not treated. PLAN: 1. I spend time at length talking about natural course, treatment and prognosis of non-VISHAL LA with hyperosmolar syndrome and acute kidney injury on top of chronic renal failure. 2. Start metoprolol 12.5 mg twice a day. 3. Switch heparin IV to Lovenox subcu, 1 mg/kg once a day, renal adjusted dose. 4. Start Lipitor 20 mg once a day with the plan to increase to 40 mg once a day later on. 5. Patient was encouraged to comply with medication. 6. Echocardiogram is warranted to assess cardiac structure. Thank you for including me in the care of this patient. Electronically signed by: Marissa Rouse MD [facility] 11/20/2015 8:19 Portions of this chart may have been created with [employer] voice recognition software. Occasi onal wrong-word or sound-alike substitutions may have occurred due to the inherent mary itations of voice recognition software. Please read the chart carefully and recognize, using context, where these substitutions have occurred. documented in this encounter Miscellaneous Notes Plan of [place] - Cammy Sahu RN - 11/24/2015 5:16 PM PDTPatient called at home, patient was able to get effient prescription filled. Permission given to mail effient savings card, education packet and stent card. Patient signed up for [employer] program. Patient to follow up with Dr. Beavers in two weeks and PCP in one week. Cammy Sahu lan of [place] - Shannan Rodríguez RN - 11/24/2015 3:53 AM PDTProblem: Patient Care Overview (Adult) Goal: Care Team Goals & Evaluation PROBLEM-RELATED GOALS: 1. Will maintain adequate oxygenation via oximetry with SpO2 >92 by 11/25/15. 2. Breath sounds will be consistent with baseline function by 11/22/15 and reverse airway br onchospasm by 11/25/15. 3. Will maintain a patent airway and effective airway clearance by 11/25/15. 4. Pt will have no chest pain by 11/25/15 5. Jessie will not have any access site bleeding/chestpain/ significant ectopy post heart ca th/pci STRATEGY TO ACHIEVE GOALS: Administer inhaled medications as ordered. Monitor saturations via oximetry every 4 hrs and titrate to order as indicated. Monitor chest pain and administer nitro as ordered Perform airway clearance using PEP therapy. Monitor/treat/motify for access site bleeding per protocol/ Monitor/treat/notify for any chest pain and/or ectopy RESTRAINT-RELATED GOALS: STRATEGIES TO ACHIEVE RESTRAINT GOALS: Outcome: Improving Goal Evaluation: Stable overnight. Right groin site w/o any s/s of bleeding. Blood sugar s table. lan of Care - Tiana Mcnair RRT - 11/23/2015 2:55 PM PDTProblem: Patient Care Overview (Adult) Goal: Care Team Goals & Evaluation PROBLEM-RELATED GOALS: 1. Will maintain adequate oxygenation via oximetry with SpO2 >92 by 11/25/15. 2. Breath sounds will be consistent with baseline function by 11/22/15 and reverse airway br onchospasm by 11/25/15. 3. Will maintain a patent airway and effective airway clearance by 11/25/15. 4. Pt will have no chest pain by 11/25/15 5. Jessie will not have any access site bleeding/chestpain/ significant ectopy post heart ca th/pci STRATEGY TO ACHIEVE GOALS: Administer inhaled medications as ordered. Monitor saturations via oximetry every 4 hrs and titrate to order as indicated. Monitor chest pain and administer nitro as ordered Perform airway clearance using PEP therapy. Monitor/treat/motify for access site bleeding per protocol/ Monitor/treat/notify for any chest pain and/or ectopy RESTRAINT-RELATED GOALS: STRATEGIES TO ACHIEVE RESTRAINT GOALS: Outcome: Improving Goal Evaluation: Pt's SpO2 value on RA has been in the high 90's today, she took her MDI tx well w/o instruc tion given.BS are clear of wheezes, strong non productive cough. Patient not on respiratory protocols, MD directing care, Rt to do therapy as ordered and [place] recommendations as indicated. lan of Jaycee Bass RN - 11/22/2015 4:56 AM PDTProblem: Patient Care Overview (Adult) Goal: Care Team Goals & Evaluation PROBLEM-RELATED GOALS: 1. Will maintain adequate oxygenation via oximetry with SpO2 >92 by 11/22/15. 2. Breath sounds will be consistent with baseline function by 11/22/15 and reverse airway br onchospasm by 11/22/15. 3. Will maintain a patent airway and effective airway clearance by 11/22/15. 4. Pt will have no chest pain by 11/21/15 STRATEGY TO ACHIEVE GOALS: Administer inhaled medications as ordered. Monitor saturations via oximetry every 4 hrs and titrate to order as indicated. Monitor chest pain and administer nitro as ordered Perform airway clearance using PEP therapy. RESTRAINT-RELATED GOALS: STRATEGIES TO ACHIEVE RESTRAINT GOALS: Outcome: Unchanged Goal Evaluation: No c/o chest pain. VSS. R radial site, CDI. CMS intact to RUE. Creatinine 1.67 this AM. Voided 2150 ml of urine this shift. lan of [place] - Ross Verduzco, CONCRETE GUN OPERATOR - 11/21/2015 9:31 PM PDTProblem: Patient Care Overview (Adult) Goal: Care Team Goals & Evaluation PROBLEM-RELATED GOALS: 1. Will maintain adequate oxygenation via oximetry with SpO2 >92 by 11/22/15. 2. Breath sounds will be consistent with baseline function by 11/22/15 and reverse airway br onchospasm by 11/22/15. 3. Will maintain a patent airway and effective airway clearance by 11/22/15. 4. Pt will have no chest pain by 11/21/15 STRATEGY TO ACHIEVE GOALS: Administer inhaled medications as ordered. Monitor saturations via oximetry every 4 hrs and titrate to order as indicated. Monitor chest pain and administer nitro as ordered Perform airway clearance using PEP therapy. RESTRAINT-RELATED GOALS: STRATEGIES TO ACHIEVE RESTRAINT GOALS: Goal Evaluation: pt on room air. No PRN treatments required. Patient is not in respiratory distress at this time. hris Cox RN - 11/21/2015 12:30 PM PDTPatient to medical lab director via Bed. lan of Care - Keira Marquez RRT - 11/21/2015 10:4 5 AM PDTProblem: Patient Care Overview (Adult) Goal: Care Team Goals & Evaluation PROBLEM-RELATED GOALS: 1. Will maintain adequate oxygenation via oximetry with SpO2 >92 by 11/22/15. 2. Breath sounds will be consistent with baseline function by 11/22/15 and reverse airway br onchospasm by 11/22/15. 3. Will maintain a patent airway and effective airway clearance by 11/22/15. 4. Pt will have no chest pain by 11/21/15 STRATEGY TO ACHIEVE GOALS: Administer inhaled medications as ordered. Monitor saturations via oximetry every 4 hrs and titrate to order as indicated. Monitor chest pain and administer nitro as ordered Perform airway clearance using PEP therapy. RESTRAINT-RELATED GOALS: STRATEGIES TO ACHIEVE RESTRAINT GOALS: Goal Evaluation: Pt is on room air with a SpO2 of 97 % and a heart rate of 76. Breath sounds are clear Pt has a dry cough. Pt has a depth regular, pattern regular, unlabored, no shortness of breath reported. lan of [place] - Renata Flores Chaplain - 11/21/2015 10:43 AM PDTProblem: Spiritual Distress, Risk/Actua l (Adult,Obstetrics,Pediatric) Goal: Spiritual Well-being Patient will demonstrate the desired outcomes by discharge/transition of care. Spiritual Care Jessie Casarez is a 50 y.o. female who is admitted for Chest pain [R07.9]. Respiratory Therapy Aide visit was part of routine rounding. Spiritual Evaluation: Patient was wanting to rest, so locomotive boilermaker visit was brief. Pt stated she had no needs at thi s time. Spiritual Interventions: Respiratory Therapy Aide assessed pt needs and offered blessing. Spiritual Outcomes: Patient did not express any spiritual needs at this time. Spiritual Goals/Follow up: Respiratory Therapy Aide will visit patient as needed or requested. If any additional spiritual issues guillermo e, please contact the locomotive boilermaker. lan of Jacques Navarro RRT - 11/21/2015 6:21 AM PDTProblem: Patient Care Overview (Adult) Goal: Care Team Goals & Evaluation PROBLEM-RELATED GOALS: 1. Will maintain adequate oxygenation via oximetry with SpO2 >92 by 11/22/15. 2. Breath sounds will be consistent with baseline function by 10/23/15 and reverse airway br onchospasm by 10/23/15. 3. Will maintain a patent airway and effective airway clearance by 10/23/15. 4. Pt will have no chest pain by 11/21/15 STRATEGY TO ACHIEVE GOALS: Administer inhaled medications as ordered. Monitor saturations via oximetry every 4 hrs and titrate to order as indicated. Monitor chest pain and administer nitro as ordered Perform airway clearance using PEP therapy. RESTRAINT-RELATED GOALS: STRATEGIES TO ACHIEVE RESTRAINT GOALS: Outcome: Improving Goal Evaluation: No PRN txs required. Pt instructed to notify if SOB. SpO2 stable on RA. O2 ordered at 2lpm per am chest pain. One ECG performed, RT will continue to monitor and treat as indicated. lan of [facility] Quiana Mendes RN - 11/21/2015 6:13 AM PDTPatient c/o chest pain this morning. Patient called just as it started c/0 5/10 pain. Radiating into her back. Describes it as "pressur e" notified. EKG done, o2 2 liters placed. Nitro paste increased. 4mg morphine total given. Patient now resting stating pain is better at A 2/10,, lan of [facility] Quiana Pereira RN - 11/20/2015 11:52 PM PDTProblem: Patient Care Overview (Adult) Goal: Care Team Goals & Evaluation PROBLEM-RELATED GOALS: 1. Will maintain adequate oxygenation via oximetry with SpO2 >92 by 11/22/15. 2. Breath sounds will be consistent with baseline function by 10/23/15 and reverse airway br onchospasm by 10/23/15. 3. Will maintain a patent airway and effective airway clearance by 10/23/15. 4. Pt will have no chest pain by 11/21/15 STRATEGY TO ACHIEVE GOALS: Administer inhaled medications as ordered. Monitor saturations via oximetry every 4 hrs and titrate to order as indicated. Monitor chest pain and administer nitro as ordered Perform airway clearance using PEP therapy. RESTRAINT-RELATED GOALS: STRATEGIES TO ACHIEVE RESTRAINT GOALS: Outcome: Improving Goal Evaluation: Doing well, lung sounds clear. Denies SOB/chest pain at this time. Nitro paste to upper a nterior chest. Denies pain. Ambulating independently to bathroom and up in hallway. SO at bedside. No complaints.Quiana Martin lan of [facility] - Keira Garrison RRT - 11/20/2015 5:15 PM PDTProblem: Patient Care Overview (Adult) Goal: Care Team Goals & Evaluation PROBLEM-RELATED GOALS: 1. Will maintain adequate oxygenation via oximetry with SpO2 >92 by 11/22/15. 2. Breath sounds will be consistent with baseline function by 10/23/15 and reverse airway br onchospasm by 10/23/15. 3. Will maintain a patent airway and effective airway clearance by 10/23/15. 4. Pt will have no chest pain by 11/21/15 STRATEGY TO ACHIEVE GOALS: Administer inhaled medications as ordered. Monitor saturations via oximetry every 4 hrs and titrate to order as indicated. Monitor chest pain and administer nitro as ordered Perform airway clearance using PEP therapy. RESTRAINT-RELATED GOALS: STRATEGIES TO ACHIEVE RESTRAINT GOALS: Goal Evaluation: Pt is on room air with a SpO2 of 96 % and a heart rate of 79. Breath sounds are clear. Pt has a dry cough. Pt has a depth regular, pattern regular, unlabored, no shortness of breath reported. lan of [facility] - Mansi Lao RN - 11/20/2015 3:52 PM Cassidy CORTEZ met with patient Jessie Casarez and her , Carlos today. They live in [place]. She states she is very independent. She states she uses [facility] in [place] and [facility] for mail order prescriptions. She declines the need for any home health services. Her will be her transportation home when she is medically stable for discharge. Jessie states her main concern is that she needs to be discharged so that she can go to an [facility] for immigration for her in [place] on 11/21/2015. I explained that she is not medically stable at this point and is not ready for discharge. I offered to contact t he person needed regarding the immigration appt. Jessie contacted Karley Lerma their collections attorney and had her contact me. A letter was done regarding the admission of Jessie and there is an unknown discharge date a t this time. Also her is needed here for medical decision making and support to his . Release of information was obtained and placed in the patients ghost chart. This letter was faxed to the collections attorney, Karley Lerma @ fax # [phone] and her contact phone # is [phone]. I called Karley to inform her that they letter was done and has been faxed. Electronically signed by: Manis Daley RN 11/20/2015 16:17 lan of Care - Steven Merritt RN - 11/20/2015 7:58 AM PDTProblem: Patient Care Overview (Adult) Goal: Care Team Goals & Evaluation PROBLEM-RELATED GOALS: 1. Will maintain adequate oxygenation via oximetry with SpO2 >92 by 11/22/15. 2. Breath sounds will be consistent with baseline function by 10/23/15 and reverse airway br onchospasm by 10/23/15. 3. Will maintain a patent airway and effective airway clearance by 10/23/15. 4. Pt will have no chest pain by 11/21/15 STRATEGY TO ACHIEVE GOALS: Administer inhaled medications as ordered. Monitor saturations via oximetry every 4 hrs and titrate to order as indicated. Monitor chest pain and administer nitro as ordered Perform airway clearance using PEP therapy. RESTRAINT-RELATED GOALS: STRATEGIES TO ACHIEVE RESTRAINT GOALS: Outcome: Improving Goal Evaluation: Pt maintaining SpO2 greater than 92% while on 2L NC. Denies chest pain since arrival to it. Breath sounds are diminished but clear and equal bilaterally. Blood glucose now down to 238 from 935 at [facility]. Troponin increased from 0.243 to 6.3. Creatinine decreased fr om 2.2 to 1.97. lan of Care - Jacques Chan RRT - 11/20/2015 5:13 AM PDTProblem: Patient Care Overview (Adult) Goal: Care Team Goals & Evaluation PROBLEM-RELATED GOALS: 1. Will maintain adequate oxygenation via oximetry with SpO2 >92 by 11/22/15. 2. Breath sounds will be consistent with baseline function by 10/23/15 and reverse airway br onchospasm by 10/23/15. 3. Will maintain a patent airway and effective airway clearance by 10/23/15. STRATEGY TO ACHIEVE GOALS: Administer inhaled medications as ordered. Monitor saturations via oximetry every 4 hrs and titrate to order as indicated. Perform airway clearance using PEP therapy. RESTRAINT-RELATED GOALS: STRATEGIES TO ACHIEVE RESTRAINT GOALS: Outcome: Unchanged Goal Evaluation: Ashley transferred in [facility] on 2 LPM NC and reports she uses [employer] kim[employer] and rarely uses her albuterol inhaler. BRS clear but diminished, no SOB reported, RT will begin oxygen titration. documented in thi s encounter Plan of Treatment Not on filedocumented as of this encounter Procedures + +--------+ + + + | Procedure Name | Priori | Date/Time | Associated Diagnosis | Comments | | | ty | | | | + +--------+ + + + | POC GLUCOSE | Routin | 11/24/2015 | | Results for this | | | e | 10:01 AM | | procedure are in the | | | | PDT | | results section. | + +--------+ + + + | POC GLUCOSE | Routin | 11/24/2015 | | Results for this | | | e | 4:31 AM | | procedure are in the | | | | PDT | | results section. | + +--------+ + + + | IRON AND TRANSFERRIN | Routin | 11/24/2015 | | Results for this | | | e | 4:30 AM | | procedure are in the | | | | PDT | | results section. | + +--------+ + + + | CBC WITH | Routin | 11/24/2015 | | Results for this | | DIFFERENTIAL | e | 4:30 AM | | procedure are in the | | | | PDT | | results section. | + +--------+ + + + | BASIC METABOLIC | Routin | 11/24/2015 | | Results for this | | PANEL | e | 4:30 AM | | procedure are in the | | | | PDT | | results section. | + +--------+ + + + | POC GLUCOSE | Routin | 11/23/2015 | | Results for this | | | e | 9:16 PM | | procedure are in the | | | | PDT | | results section. | + +--------+ + + + | POC GLUCOSE | Routin | 11/23/2015 | | Results for this | | | e | 5:44 PM | | procedure are in the | | | | PDT | | results section. | + +--------+ + + + | POC GLUCOSE | Routin | 11/23/2015 | | Results for this | | | e | 11:24 AM | | procedure are in the | | | | PDT | | results section. | + +--------+ + + + | CV COR ANGIO | Routin | 11/23/2015 | | Results for this | | | e | 10:49 AM | | procedure are in the | | | | PDT | | results section. | + +--------+ + + + | CBC WITH | Routin | 11/23/2015 | | Results for this | | DIFFERENTIAL | e | 4:35 AM | | procedure are in the | | | | PDT | | results section. | + +--------+ + + + | BASIC METABOLIC | Routin | 11/23/2015 | | Results for this | | PANEL | e | 4:35 AM | | procedure are in the | | | | PDT | | results section. | + +--------+ + + + | POC GLUCOSE | Routin | 11/23/2015 | | Results for this | | | e | 4:26 AM | | procedure are in the | | | | PDT | | results section. | + +--------+ + + + | POC GLUCOSE | Routin | 11/22/2015 | | Results for this | | | e | 8:44 PM | | procedure are in the | | | | PDT | | results section. | + +--------+ + + + | HEMOGLOBIN AND | STAT | 11/22/2015 | | Results for this | | HEMATOCRIT | | 8:43 PM | | procedure are in the | | | | PDT | | results section. | + +--------+ + + + | POC GLUCOSE | Routin | 11/22/2015 | | Results for this | | | e | 6:12 PM | | procedure are in the | | | | PDT | | results section. | + +--------+ + + + | URINALYSIS, REFLEX | Routin | 11/22/2015 | | Results for this | | MICROSCOPIC AND/OR | e | 5:17 PM | | procedure are in the | | CULTURE | | PDT | | results section. | + +--------+ + + + | OCCULT BLOOD, STOOL, | Routin | 11/22/2015 | | Results for this | | SPECIMEN 3 | e | 3:20 PM | | procedure are in the | | | | PDT | | results section. | + +--------+ + + + | POC GLUCOSE | Routin | 11/22/2015 | | Results for this | | | e | 11:28 AM | | procedure are in the | | | | PDT | | results section. | + +--------+ + + + | OCCULT BLOOD, STOOL, | Routin | 11/22/2015 | | Results for this | | SPECIMEN 2 | e | 10:22 AM | | procedure are in the | | | | PDT | | results section. | + +--------+ + + + | POC GLUCOSE | Routin | 11/22/2015 | | Results for this | | | e | 8:30 AM | | procedure are in the | | | | PDT | | results section. | + +--------+ + + + | CBC WITH | Routin | 11/22/2015 | | Results for this | | DIFFERENTIAL | e | 3:56 AM | | procedure are in the | | | | PDT | | results section. | + +--------+ + + + | BASIC METABOLIC | Routin | 11/22/2015 | | Results for this | | PANEL | e | 3:56 AM | | procedure are in the | | | | PDT | | results section. | + +--------+ + + + | POC GLUCOSE | Routin | 11/21/2015 | | Results for this | | | e | 8:56 PM | | procedure are in the | | | | PDT | | results section. | + +--------+ + + + | TROPONIN I | STAT | 11/21/2015 | | Results for this | | | | 5:53 PM | | procedure are in the | | | | PDT | | results section. | + +--------+ + + + | POC GLUCOSE | Routin | 11/21/2015 | | Results for this | | | e | 5:20 PM | | procedure are in the | | | | PDT | | results section. | + +--------+ + + + | CV LHC | Routin | 11/21/2015 | | Results for this | | | e | 1:30 PM | | procedure are in the | | | | PDT | | results section. | + +--------+ + + + | POC GLUCOSE | Routin | 11/21/2015 | | Results for this | | | e | 12:13 PM | | procedure are in the | | | | PDT | | results section. | + +--------+ + + + | TROPONIN I | STAT | 11/21/2015 | | Results for this | | | | 11:47 AM | | procedure are in the | | | | PDT | | results section. | + +--------+ + + + | POC GLUCOSE | Routin | 11/21/2015 | | Results for this | | | e | 6:54 AM | | procedure are in the | | | | PDT | | results section. | + +--------+ + + + | TROPONIN I | STAT | 11/21/2015 | | Results for this | | | | 5:55 AM | | procedure are in the | | | | PDT | | results section. | + +--------+ + + + | ECG 12 LEAD | STAT | 11/21/2015 | | Results for this | | | | 5:28 AM | | procedure are in the | | | | PDT | | results section. | + +--------+ + + + | IRON AND TRANSFERRIN | Routin | 11/21/2015 | | Results for this | | | e | 4:37 AM | | procedure are in the | | | | PDT | | results section. | + +--------+ + + + | PROTIME INR | Routin | 11/21/2015 | | Results for this | | | e | 4:37 AM | | procedure are in the | | | | PDT | | results section. | + +--------+ + + + | CBC WITH | Routin | 11/21/2015 | | Results for this | | DIFFERENTIAL | e | 4:37 AM | | procedure are in the | | | | PDT | | results section. | + +--------+ + + + | BASIC METABOLIC | Routin | 11/21/2015 | | Results for this | | PANEL | e | 4:37 AM | | procedure are in the | | | | PDT | | results section. | + +--------+ + + + | POC GLUCOSE | Routin | 11/20/2015 | | Results for this | | | e | 9:14 PM | | procedure are in the | | | | PDT | | results section. | + +--------+ + + + | OCCULT BLOOD, STOOL, | Routin | 11/20/2015 | | Results for this | | SPECIMEN 1 | e | 8:20 PM | | procedure are in the | | | | PDT | | results section. | + +--------+ + + + | POC GLUCOSE | Routin | 11/20/2015 | | Results for this | | | e | 5:17 PM | | procedure are in the | | | | PDT | | results section. | + +--------+ + + + | TROPONIN I | Routin | 11/20/2015 | | Results for this | | | e | 1:41 PM | | procedure are in the | | | | PDT | | results section. | + +--------+ + + + | POC GLUCOSE | Routin | 11/20/2015 | | Results for this | | | e | 12:55 PM | | procedure are in the | | | | PDT | | results section. | + +--------+ + + + | ECHO COMPLETE | Routin | 11/20/2015 | | Results for this | | | e | 9:54 AM | | procedure are in the | | | | PDT | | results section. | + +--------+ + + + | TROPONIN I | Routin | 11/20/2015 | | Results for this | | | e | 8:00 AM | | procedure are in the | | | | PDT | | results section. | + +--------+ + + + | BASIC METABOLIC | Routin | 11/20/2015 | | Results for this | | PANEL | e | 8:00 AM | | procedure are in the | | | | PDT | | results section. | + +--------+ + + + | POC GLUCOSE | Routin | 11/20/2015 | | Results for this | | | e | 7:11 AM | | procedure are in the | | | | PDT | | results section. | + +--------+ + + + | RESPIRATORY THERAPY | Routin | 11/20/2015 | | | | COMMUNICATION | e | 5:27 AM | | | | | | PDT | | | + +--------+ + + + | POC GLUCOSE | Routin | 11/20/2015 | | Results for this | | | e | 4:31 AM | | procedure are in the | | | | PDT | | results section. | + +--------+ + + + | PTT | STAT | 11/20/2015 | | Results for this | | | | 3:41 AM | | procedure are in the | | | | PDT | | results section. | + +--------+ + + + | PROTIME INR | STAT | 11/20/2015 | | Results for this | | | | 3:41 AM | | procedure are in the | | | | PDT | | results section. | + +--------+ + + + | POC GLUCOSE | Routin | 11/20/2015 | | Results for this | | | e | 2:23 AM | | procedure are in the | | | | PDT | | results section. | + +--------+ + + + | SLIDE REVIEW, | Routin | 11/20/2015 | | Results for this | | PERIPHERAL SMEAR | e | 1:57 AM | | procedure are in the | | | | PDT | | results section. | + +--------+ + + + | BETA | STAT | 11/20/2015 | | Results for this | | HYDROXYBUTYRATE, | | 1:57 AM | | procedure are in the | | QUANT | | PDT | | results section. | + +--------+ + + + | LIPID PANEL | Routin | 11/20/2015 | | Results for this | | | e | 1:57 AM | | procedure are in the | | | | PDT | | results section. | + +--------+ + + + | VITAMIN B-12 | Routin | 11/20/2015 | | Results for this | | | e | 1:57 AM | | procedure are in the | | | | PDT | | results section. | + +--------+ + + + | TROPONIN I | Routin | 11/20/2015 | | Results for this | | | e | 1:57 AM | | procedure are in the | | | | PDT | | results section. | + +--------+ + + + | IRON AND TRANSFERRIN | Routin | 11/20/2015 | | Results for this | | | e | 1:57 AM | | procedure are in the | | | | PDT | | results section. | + +--------+ + + + | CBC WITH | STAT | 11/20/2015 | | Results for this | | DIFFERENTIAL | | 1:57 AM | | procedure are in the | | | | PDT | | results section. | + +--------+ + + + | TSH | Routin | 11/20/2015 | | Results for this | | | e | 1:57 AM | | procedure are in the | | | | PDT | | results section. | + +--------+ + + + | PHOSPHORUS | STAT | 11/20/2015 | | Results for this | | | | 1:57 AM | | procedure are in the | | | | PDT | | results section. | + +--------+ + + + | B TYPE NATRIURETIC | STAT | 11/20/2015 | | Results for this | | PEPTIDE | | 1:57 AM | | procedure are in the | | | | PDT | | results section. | + +--------+ + + + | MAGNESIUM | STAT | 11/20/2015 | | Results for this | | | | 1:57 AM | | procedure are in the | | | | PDT | | results section. | + +--------+ + + + | HEMOGLOBIN A1C | STAT | 11/20/2015 | | Results for this | | | | 1:57 AM | | procedure are in the | | | | PDT | | results section. | + +--------+ + + + | FOLATE | Routin | 11/20/2015 | | Results for this | | | e | 1:57 AM | | procedure are in the | | | | PDT | | results section. | + +--------+ + + + | FERRITIN | Routin | 11/20/2015 | | Results for this | | | e | 1:57 AM | | procedure are in the | | | | PDT | | results section. | + +--------+ + + + | HEPATIC FUNCTION | STAT | 11/20/2015 | | Results for this | | PANEL | | 1:57 AM | | procedure are in the | | | | PDT | | results section. | + +--------+ + + + | BASIC METABOLIC | STAT | 11/20/2015 | | Results for this | | PANEL | | 1:57 AM | | procedure are in the | | | | PDT | | results section. | + +--------+ + + + | ECG 12 LEAD | STAT | 11/20/2015 | | Results for this | | | | 1:54 AM | | procedure are in the | | | | PDT | | results section. | + +--------+ + + + | CULTURE, MRSA | Routin | 11/20/2015 | | Results for this | | | e | 1:44 AM | | procedure are in the | | | | PDT | | results section. | + +--------+ + + + | LVEF VALUE | Routin | 11/20/2015 | | Results for this | | | e | | | procedure are in the | | | | | | results section. | + +--------+ + + + | LABS - EXTERNAL SCAN | | 11/19/2015 | | Results for this | | | | 12:00 AM | | procedure are in the | | | | PDT | | results section. | + +--------+ + + + | ECG - EXTERNAL SCAN | | 11/19/2015 | | Results for this | | | | 12:00 AM | | procedure are in the | | | | PDT | | results section. | + +--------+ + + + documented in this encounter Results POC Glucose (11/24/2015 10:01 AM PDT) + +---------+ + + + | Component | Value | Ref Range | Performed | Pathologist | | | | | At | Signature | + +---------+ + + + | Glucose, | 222 (H) | 70 - 150 mg/dL | [facility] | | | POC | | | [facility] | | | [facility] | | [facility]ICAL [...] [address] | [place] | [phone] | | [facility] | | [address] | | | - LABORATORY | | | | + + + + + POC Glucose (11/24/2015 4:31 AM PDT) + +-------+ + + + | Component | Value | Ref Range | Performed | Pathologist | | | | | At | Signature | + +-------+ + + + | Glucose, | 150 | 70 - 150 mg/dL | [facility] | | | P[facility] | | | [facility] | | [...] + | [facility] | [address] | [place] | [phone] | | [facility] | | [address] | | | - LABORATORY | | | | + + + + + Iron and Transferrin (11/24/2015 4:30 AM PDT) + + + + + + | Component | Value | Ref Range | Performed | Pathologist | | | | | At | Signature | + + + + + + | Iron | 51 | 40 - 150 ug/dL | [facility] | | | | | | [facility] | [facility] | | [facility] | | | | | | CENTER - | | | | | | LABORATORY | | + + + + + + | TRANSFERRIN | 221.0 (L) | 240.0 - 480.0 | [facility] | | | | | mg/dL | [facility] | | | | | | [facility]ICAL | | | | | | CENTER - | | | | | | LABORATORY | | + + + + + + | TIBC | 309 | 235 - 425 ug/dL | [facility] | | | | | | [facility] | | | | | | [facility] | | | | | | CENTER - | | | | | | LABORATORY | | + + + + + + | % | 16.5 (L) | 20.0 - 55.0 % | [facility] | | | SATURATION | | | [facility] | | [...] [address] | [place] | [phone] | | [facility] | | [address] | | | - LABORATORY | | | | + + + + + Basic Metabolic Panel (11/24/2015 4:30 AM PDT) + + + + + + | Component | Value | Ref Range | Performed | Pathologist | | | | | At | Signature | + + + + + + | Na | 138 | 136 - 149 | [facility] | | | | | mmol/L | [facility] | | | | | | MEDICAL | | | | | | CENTER - | | | | | | LABORATORY | | + + + + + + | K | 4.0 | 3.5 - 5.1 | [facility] | | | | | mmol/L | [facility] | | | | | | [facility] | | | | | | CENTER - | | | | | | LABORATORY | | + + + + + + | Cl | 109 | 98 - 109 mmol/L | [facility] | | | | | | [facility] | | | | | | MEDICAL | | | | | | CENTER - | | | | | | LABORATORY | | + + + + + + | CO2 | 21 (L) | 24 - 31 mmol/L | [facility] | | | | | | [facility] | | | | | | MEDICAL | | | | | | CENTER - | | | | | | LABORATORY | | + + + + + + | Anion Gap | 8 | 3 - 16 mmol/L | [facility] | | | | | | [facility] | | | | | | [facility] | | | | | | CENTER - | | | | | | LABORATORY | | + + + + + + | Glucose | 145 (H) | 70 - 109 mg/dL | [facility] | | | | | | [facility] | | [facility] | | [facility] | | | | | | CENTER - | | | | | | LABORATORY | | + + + + + + | BUN | 15 | 7 - 18 mg/dL | [facility] | | | | | | [facility] | | | | | | [facility]ICAL | | | | | | CENTER - | | | | | | LABORATORY | | + + + + + + | Creatinine | 1.65 (H) | 0.60 - 1.30 | [facility] | | | | | mg/dL | [facility] | | | | | | MEDICAL | | | | | | CENTER - | | | | | | LABORATORY | | + + + + + + | eGFR if not | 33 (L)Comment: | >=60 | [facility] | | | | GLOMERULAR FILTRATION | mL/min/1.73m2 | [facility] | | | [facility] [place] | RATE,ESTIMATED | | MEDICAL | | | | mL/min/1.86g4Hqts than | | CENTER - | | [...] + + + + | Calcium | 7.8 (L) | 8.3 - 10.5 | [facility] | | | | | mg/dL | [facility] | | | | | | [facility] | | | | | | CENTER - | | | | | | LABORATORY | | + + + + + + | BUN/Creatin | 9.1 | | [facility] | | | ine [...] [address] | [place] | [phone] | | [facility] | | [address] | | | - LABORATORY | | | | + + + + + CBC with Differential (11/24/2015 4:30 AM PDT) + + + + + + | Component | Value | Ref Range | Performed | Pathologist | | | | | At | Signature | + + + + + + | White Blood | 14.6 (H) | 4.0 - 11.0 K/uL | [facility] | | | Cells | | | [facility] | | | | | | MEDICAL | | | | | | CENTER - | | | | | | LABORATORY | | + + + + + + | Red Blood | 4.22 | 3.70 - 5.20 | [facility] | | | Cells | | M/uL | [facility] | | | | | | MEDICAL | | | | | | CENTER - | | | | | | LABORATORY | | + + + + + + | Hemoglobin | 7.7 (L) | 11.5 - 16.0 | [facility] | | | | | g/dL | [facility] | | | | | | MEDICAL | | | | | | CENTER - | | | | | | LABORATORY | | + + + + + + | Hematocrit | 26.7 (L) | 34.0 - 47.0 % | [facility] | | | | | | [facility] | | | | | | MEDICAL | | | | | | CENTER - | | | | | | LABORATORY | | + + + + + + | MCV | 63.3 (L) | 83.0 - 101.0 fL | [facility] | | | | | | [facility] | | | | | | MEDICAL | | | | | | CENTER - | | | | | | LABORATORY | | + + + + + + | MCH | 18.3 (L) | 28.0 - 35.0 pg | [facility] | | | | | | [facility] | | | | | | MEDICAL | | | | | | CENTER - | | | | | | LABORATORY | | + + + + + + | MCHC | 29.0 (L) | 32.0 - 36.0 | [facility] | | | | | g/dL | [facility] | | | | | | MEDICAL | | | | | | CENTER - | | | | | | LABORATORY | | + + + + + + | RDW-CV | 22.1 (H) | <15.0 % | [facility] | | | | | | [facility] | | | | | | MEDICAL | | | | | | CENTER - | | | | | | LABORATORY | | + + + + + + | Platelet | 258 | 140 - 440 K/uL | [facility] | | | Count | | | [facility] | | | | | | MEDICAL | | | | | | CENTER - | | | | | | LABORATORY | | + + + + + + | MPV | 8.9 | fL | [facility] | | | | | | [facility] | | | [facility] | | MEDICAL | | | | | | CENTER - | | | | | | LABORATORY | | + + + + + + | % | 69.6 | 45.0 - 82.0 % | [facility] | | | Neutrophils | | | [facility] | | | | | | MEDICAL | | | | | | CENTER - | | | | | | LABORATORY | | + + + + + + | % | 16.6 (L) | 20.0 - 45.0 % | [facility] | | | Lymphocytes | | | [facility] | | | | | | MEDICAL | | | | | | CENTER - | | | | | | LABORATORY | | + + + + + + | % Monocytes | 8.6 | 4.0 - 12.0 % | [facility] | | | | | | [facility] | | | | | | MEDICAL | | | | | | CENTER - | | | | | | LABORATORY | | + + + + + + | % | 4.1 | 0.0 - 5.0 % | [facility] | | | Eosinophils | | | [facility] | | | | | | MEDICAL | | | | | | CENTER - | | | | | | LABORATORY | | + + + + + + | % Basophils | 1.1 (H) | 0.0 - 1.0 % | [facility] | | | | | | [facility] | | | | | | MEDICAL | | | | | | CENTER - | | | | | | LABORATORY | | + + + + + + | Absolute | 10.10 (H) | 1.80 - 8.50 | [facility] | | | Neutrophils | | K/uL | [facility] | | | | | | MEDICAL | | | | | | CENTER - | | | | | | LABORATORY | | + + + + + + | Absolute | 2.40 | 0.60 - 3.20 | [facility] | | | Lymphocytes | | K/uL | [facility] | | | | | | MEDICAL | | | | | | CENTER - | | | | | | LABORATORY | | + + + + + + | Absolute | 1.30 (H) | 0.00 - 1.00 | [facility] | | | Monocytes | | K/uL | [facility] | | | | [...] + + + + | Absolute | 0.20 (H) | 0.00 - 0.10 | [facility] [...] [address] | [place] | [phone] | | [facility] | | [address] | | | - LABORATORY | | | | + + + + + POC Glucose (11/23/2015 9:16 PM PDT) + +---------+ + + + | Component | Value | Ref Range | Performed | Pathologist | | | | | At | Signature | + +---------+ + + + | Glucose, | 178 (H) | 70 - 150 mg/dL | [facility] | | | POC | | | [facility] | | | | | | [...] [address] | [place] | [phone] | | [facility] | | [address] | | | - LABORATORY | | | | + + + + + POC Glucose (11/23/2015 5:44 PM PDT) + +-------+ + + + | Component | Value | Ref Range | Performed | Pathologist | | | | | At | Signature | + +-------+ + + + | Glucose, | 120 | 70 - 150 mg/dL | [facility] | | | POC | | | [facility] | | | | | | MEDICAL [...] [address] | [place] | [phone] | | [facility] | | [address] | | | - LABORATORY | | | | + + + + + POC Glucose (11/23/2015 11:24 AM PDT) + +-------+ + + + | Component | Value | Ref Range | Performed | Pathologist | | | | | At | Signature | + +-------+ + + + | Glucose, | 130 | 70 - 150 mg/dL | [facility] | | | POC | | | [facility] | | [...] | [address] | [place], [place] | [phone] | | [facility] | | [address] | | | - LABORATORY | | | | + + + + + CV CARDIAC PROCEDURE (11/23/2015 10:49 AM PDT) + + | Specimen | + + | | + + + + | Addenda | + + | Addendum by Irvin Bell MD on 03/01/2016 8:42 AM Date of procedure was | | 11/23/2015. Date below was generated when report was completed. | + + + + -+ | Narrative | Performed At | + + -+ | CARDIAC | | | CATHETERIZATION REPORT WITH CORONARY INTERVENTION PATIENT NAME: | | | Jessie LomeliaDATE OF : 1965MEDICAL RECORD NUMBER: | | | [id number] OF PROCEDURE: 12/02/2015 | | | | | | PRIMARY CARE PROVIDER: KALEN Martinez | | | FAMILY CONSUMER SCIENCE TEACHER: Dr. Ray Bell MD, [facility]. PRE-PROCEDURE DIAGNOSIS: | | | 80% stenosis in the mid right coronary arteryPOST-PROCEDURE | | | DIAGNOSIS: same PROCEDURES PERFORMED: Coronary | | | intervention DESCRIPTION OF PROCEDURE: Please refer to the computer | | | log entry form for precise details. Following informed consent the | | | patient's right groin was prepped, draped and, using 1% lidocaine, | | | anesthetized. A 6 F sheath was inserted into the femoral artery. A 6 | | | Greek Edgar right guiding catheter was inserted in the right | | | coronary was cannulated. A guidewire was advanced down this vessel | | | and across the area of stenosis. A large diameter drug eluting | | | coronary stent was deployed in the area of severe stenosis. | | | Following achievement of an adequate angiographic result, femoral | | | angiography was performed then hemostasis was obtained using an | | | Angio-Seal device . There were no immediate complications. | | | Estimated blood loss was 20 cc. FINDINGS: The 80% stenosis in the | | | mid right coronary artery was 0% or less at the conclusion of the | | | procedure. CONCLUSIONS:1. Severe right coronary artery disease 2. | | | Successful stenting of the right coronary artery RECOMMENDATIONS: | | | Medical therapy for life plus dual antiplatelet therapy for a minimum | | | of 6 months. Ray Bell MD, [facility], [facility] | | | CenterDATE/TIME: 12/02/2015 9:247 9:24 Portions of this chart | | | were created with Blackbook[employer] voice recognition software. Occasional | | | wrong-word or | | | | | | sound-alike | | | substitutions may have occurred due to the inherent limitations of | | | voice recognition software. Please contact me if there are any | | | questions regarding any aspects of the above report. | | | | | |The 80% stenosis in the mid right coronary artery was 0% or less at the | | |conclusion of the procedure. | | | | | | | | | | | |CONCLUSIONS: | | |1. Severe right coronary artery disease | | | | | |2. Successful stenting of the right coronary artery | | | | | |RECOMMENDATIONS: | | |Medical therapy for life plus dual antiplatelet therapy for a minimum of 6 | | |months. | | | | | |Ray Bell MD, [facility], | | |[facility] | | |DATE/TIME: 12/02/2015 9:24 | | |12/02/2015 9:24 | | | | | |Portions of this chart were created with BlackbookHR voice recognition | | |software. Occasional wrong-word or sound-alike substitutions may have | | |occurred due to the inherent limitations of voice recognition software. | | |Please contact me if there are any questions regarding any aspects of the | | |above report. | | | | | | | | | | | | | | | | | + + -+ Basic Metabolic Panel (11/23/2015 4:35 AM PDT) + + + + + + | Component | Value | Ref Range | Performed | Pathologist | | | | | At | Signature | + + + + + + | Na | 140 | 136 - 149 | [facility] | | | | | mmol/L | [facility] | | | | | | MEDICAL | | | | | | CENTER - | | | | | | LABORATORY | | + + + + + + | K | 3.7 | 3.5 - 5.1 | [facility] | | | | | mmol/L | [facility] | | | | | | MEDICAL | | | | | | CENTER - | | | | | | LABORATORY | | + + + + + + | Cl | 113 (H) | 98 - 109 mmol/L | [facility] | | | | | | [facility] | | | | | | MEDICAL | | | | | | CENTER - | | | | | | LABORATORY | | + + + + + + | CO2 | 21 (L) | 24 - 31 mmol/L | [facility] | | | | | | [facility] | | | | | | MEDICAL | | | | | | CENTER - | | | | | | LABORATORY | | + + + + + + | Anion Gap | 6 | 3 - 16 mmol/L | [facility] | | | | | | [facility] | | | | | | MEDICAL | | | | | | CENTER - | | | | | | LABORATORY | | + + + + + + | Glucose | 140 (H) | 70 - 109 mg/dL | [facility] | | | | | | [facility] | | | | | | MEDICAL | | | | | | CENTER - | | | | | | LABORATORY | | + + + + + + | BUN | 16 | 7 - 18 mg/dL | [facility] | | | | | | [facility] | | | | | | MEDICAL | | | | | | CENTER - | | | | | | LABORATORY | | + + + + + + | Creatinine | 1.64 (H) | 0.60 - 1.30 | [place] | | | | | mg/dL | [facility] | | | | | | MEDICAL | | | | | | CENTER - | | | | | | LABORATORY | | + + + + + + | eGFR if not | 33 (L)Comment: | >=60 | [place] | | | | GLOMERULAR FILTRATION | mL/min/1.73m2 | [facility] | | | [facility] | RATE,ESTIMATED | | MEDICAL | | | | mL/min/1.97g8Nkfz than | | CENTER - | | [...] + + + + | Calcium | 7.7 (L) | 8.3 - 10.5 | [facility] | | | | | mg/dL | [facility] | | | | | | MEDICAL | | | | | | CENTER - | | | | | | LABORATORY | | + + + + + + | BUN/Creatin | 9.8 | | [facility] | | | ine [...] + | [facility] | [address] | [place] | [phone] | | [facility] | | [address] | | | - LABORATORY | | | | + + + + + CBC with Differential (11/23/2015 4:35 AM PDT) + + + + + + | Component | Value | Ref Range | Performed | Pathologist | | | | | At | Signature | + + + + + + | White Blood | 13.8 (H) | 4.0 - 11.0 K/uL | [facility] | | | Cells | | | [facility] | | | | | | MEDICAL | | | | | | CENTER - | | | | | | LABORATORY | | + + + + + + | Red Blood | 4.42 | 3.70 - 5.20 | [facility] | | | Cells | | M/uL | [facility] | | | | | | MEDICAL | | | | | | CENTER - | | | | | | LABORATORY | | + + + + + + | Hemoglobin | 7.8 (L) | 11.5 - 16.0 | [facility] | | | | | g/dL | [facility] | | | | | | MEDICAL | | | | | | CENTER - | | | | | | LABORATORY | | + + + + + + | Hematocrit | 27.5 (L) | 34.0 - 47.0 % | [facility] | | | | | | [facility] | | | | | | MEDICAL | | | | | | CENTER - | | | | | | LABORATORY | | + + + + + + | MCV | 62.3 (L) | 83.0 - 101.0 fL | [facility] | | | | | | [facility] | | | | | | MEDICAL | | | | | | CENTER - | | | | | | LABORATORY | | + + + + + + | MCH | 17.6 (L) | 28.0 - 35.0 pg | [facility] | | | | | | [facility] | | | | | | MEDICAL | | | | | | CENTER - | | | | | | LABORATORY | | + + + + + + | MCHC | 28.2 (L) | 32.0 - 36.0 | [facility] | | | | | g/dL | [facility] | | | | | | MEDICAL | | | | | | CENTER - | | | | | | LABORATORY | | + + + + + + | RDW-CV | 22.4 (H) | <15.0 % | [facility] | | | | | | [facility] | | | | | | MEDICAL | | | | | | CENTER - | | | | | | LABORATORY | | + + + + + + | Platelet | 249 | 140 - 440 K/uL | [facility] | | | Count | | | [facility] | | | | | | MEDICAL | | | | | | CENTER - | | | | | | LABORATORY | | + + + + + + | MPV | 9.2 | fL | [facility] | | | | | | [facility] | | | | | | MEDICAL | | | | | | CENTER - | | | | | | LABORATORY | | + + + + + + | % | 65.1 | 45.0 - 82.0 % | [facility] | | | Neutrophils | | | [facility] | | | | | | MEDICAL | | | | | | CENTER - | | | | | | LABORATORY | | + + + + + + | % | 20.8 | 20.0 - 45.0 % | [facility] | | | Lymphocytes | | | [facility] | | | | | | MEDICAL | | | | | | CENTER - | | | | | | LABORATORY | | + + + + + + | % Monocytes | 8.5 | 4.0 - 12.0 % | [facility] | | | | | | [facility] | | | | | | MEDICAL | | | | | | CENTER - | | | | | | LABORATORY | | + + + + + + | % | 3.7 | 0.0 - 5.0 % | [facility] | | | Eosinophils | | | [facility] | | | | | | MEDICAL | | | | | | CENTER - | | | | | | LABORATORY | | + + + + + + | % Basophils | 1.9 (H) | 0.0 - 1.0 % | [facility] | | | | | | [facility] | | | | | | MEDICAL | | | | | | CENTER - | | | | | | LABORATORY | | + + + + + + | Absolute | 9.00 (H) | 1.80 - 8.50 | [facility] | | | Neutrophils | | K/uL | [facility] | | | | | | MEDICAL | | | | | | CENTER - | | | | | | LABORATORY | | + + + + + + | Absolute | 2.90 | 0.60 - 3.20 | [facility] | [...] + + + + | Absolute | 0.50 (H) | 0.00 - 0.40 | [facility] [...] + | [facility] | [address] | [place] | [phone] | | [facility] | | [address] | | | - LABORATORY | | | | + + + + + POC Glucose (11/23/2015 4:26 AM PDT) + +-------+ + + + | Component | Value | Ref Range | Performed | Pathologist | | | | | At | Signature | + +-------+ + + + | Glucose, | 137 | 70 - 150 mg/dL | [facility] | | | POC | | | [facility] | | [...] [address] | [place] | [phone] | | [facility] | | [address] | | | - LABORATORY | | | | + + + + + POC Glucose (11/22/2015 8:44 PM PDT) + +---------+ + + + | Component | Value | Ref Range | Performed | Pathologist | | | | | At | Signature | + +---------+ + + + | Glucose, | 236 (H) | 70 - 150 mg/dL | [facility] | | [facility] | | | [facility] | | [...] + | [facility] | [address] | [place] | [phone] | | [facility] | | [address] | | | - LABORATORY | | | | + + + + + Hemoglobin and Hematocrit (11/22/2015 8:43 PM PDT) + + + + + + | Component | Value | Ref Range | Performed | Pathologist | | | | | At | Signature | + + + + + + | Hemoglobin | 8.3 (L) | 11.5 - 16.0 | [facility] | | | | | g/dL | [facility] | | [facility] | | [facility] | | | | | [facility] - | | | | | | LABORATORY | | + + + + + + | Hematocrit | 29.3 (L) | 34.0 - 47.0 % | [...] [address] | [place] | [phone] | | [facility] | | [address] | | | - LABORATORY | | | | + + + + + POC Glucose (11/22/2015 6:12 PM PDT) + +-------+ + + + | Component | Value | Ref Range | Performed | Pathologist | | | | | At | Signature | + +-------+ + + + | Glucose, | 116 | 70 - 150 mg/dL | [facility] | | | P[facility] | [facility] | | | | | | [...] + + | [facility] | [address] | [place] | [phone] | | [facility] | | [address] | | | - LABORATORY | | | | + + + + + Urinalysis, Reflex Microscopic and/or Culture (11/22/2015 5:17 PM PDT) + + + + + + | Component | Value | Ref Range | Performed | Pathologist | | | | | At | Signature | + + + + + + | Color, | Straw | Light Yellow, | [facility] | | | Urine | | Yellow, Straw | [facility] | | | | | | [facility] | | | | | | [facility] - | | | | | | LABORATORY | | + + + + + + | Clarity, | Clear | Clear | [facility] | | | Urine | | | [facility] | | | | | | [facility] | | | | | | [facility] - | | | | | | LABORATORY | | + + + + + + | pH, Urine | 6.0 | 5.0 - 8.0 | [facility] | | | | | | [facility] | | | [facility] | | [facility] | | | | | | [facility] - | | | | | | LABORATORY | | + + + + + + | Specific | 1.006 | 1.001 - 1.030 | [facility] | | | [place], | | | [facility] | | | Urine | | | MEDICAL | | | | | | CENTER - | | | | | | LABORATORY | | + + + + + + | Protein, | 30 mg/dL (A) | Negative | [facility] | | | Urine | | | [facility] | | | | | | [facility] | | | | | | CENTER - | | | | | | LABORATORY | | + + + + + + | Blood, | Negative | Negative | [facility] | | | Urine | | | [facility] | | | [facility] | | [facility] | | | | | | CENTER - | | | | | | LABORATORY | | + + + + + + | Glucose, | Negative | Negative | [facility] | | | Urine | | | [facility] | | | | | | [facility] | | | | | | CENTER - | | | | | | LABORATORY | | + + + + + + | Ketones, | Negative | Negative | [facility] | | | Urine | | | [facility] | | | | | | [facility] | | | | | | CENTER - | | | | | | LABORATORY | | + + + + + + | Bilirubin, | Negative | Negative | [facility] | | | Urine | | | [facility] | | | | | | [facility] | | | | | | CENTER - | | | | | | LABORATORY | | + + + + + + | Nitrite, | Negative | Negative | [facility] | | | Urine | | | [facility] | | | | | | [facility] | | | | | | CENTER - | | | | | | LABORATORY | | + + + + + + | Leukocyte | Negative | Negative | [facility] | | | Esterase, | | | [facility] | | | Urine | | | MEDICAL | | | | | | CENTER - | | | | | | LABORATORY | | + + + + + + | Urobilinoge | Negative | 0.2 mg/dL, 1.0 | [facility] | | | n, Urine | | mg/dL, Negative | [facility] | | | | | | [facility] | | | | | | CENTER - | | | | | | LABORATORY | | + + + + + + | White Blood | 0-2 | 0 - 2 /HPF | [facility] | | | Cells, | | | [facility] | | | Urine | | | MEDICAL | | | | | | CENTER - | | | | | | LABORATORY | | + + + + + + | Red Blood | 0-2 | 0 - 2 /HPF | [facility] | | | Cells, | | | [facility] | | | Urine | | | MEDICAL | | | | | | CENTER - | | | | | | LABORATORY | | + + + + + + | Squamous | 25-50 (A) | 0 - 2 /LPF | [facility] | | | Epithelial | | | [facility] | | | Cells, | | | MEDICAL | | | Urine | | | CENTER - | | | | | | LABORATORY | | + + + + + + | Bacteria, | Negative | Negative /HPF | [facility] | | | Urine | | | [facility] | | | | | | [facility] | | | | | | CENTER - | | | | | | LABORATORY | | + + + + + + | Mucus, | Present (A) | Negative /LPF | [facility] | | | Urine | | | [facility] | | | | | | [facility]ICAL | | | | | | CENTER - | | | | | | LABORATORY | | + + + + + + | Urine | Urine Culture Not | | [facility] | | | Comment | Indicated | | [facility] | | | | | | [facility]ICAL | | | | | | CENTER - | | | | | | LABORATORY | | + + + + + + + + | Specimen | + + | Urine | + + + + + + + | Performing | Address | City/State/Zipcode | Phone Number | | Organization | | | | + + + + + | [facility] | [address] | [place] | [phone] | | [facility] | | [address] | | | - LABORATORY | | | | + + + + + Occult Blood, Stool, Specimen 3 (11/22/2015 3:20 PM PDT) + + + + + + | Component | Value | Ref Range | Performed | Pathologist | | | | | At | Signature | + + + + + + | Occult | Positive | | [facility] | | | Blood in | | | [facility] | | | 3rd | | | MEDICAL | | | Specimen, | | | CENTER - | | | Stool | | | LABORATORY | | + + + + + + + + | Specimen | + + | Stool - Stool | | specimen (specimen) | + + + + + + + | Performing | Address | City/State/Zipcode | Phone Number | | Organization | | | | + + + + + | [facility] | [address] | [place] | [phone] | | [facility] | | [address] | | | - LABORATORY | | | | + + + + + POC Glucose (11/22/2015 11:28 AM PDT) + +---------+ + + + | Component | Value | Ref Range | Performed | Pathologist | | | | | At | Signature | + +---------+ + + + | Glucose, | 267 (H) | 70 - 150 mg/dL | [facility] | | | POC | | | [facility] | | [...] + + + + + | [facility] | [address] | [place] | [phone] | | [facility] | | [address] | | | - LABORATORY | | | | + + + + + Occult Blood, Stool, Specimen 2 (11/22/2015 10:22 AM PDT) + + + + + + | Component | Value | Ref Range | Performed | Pathologist | | | | | At | Signature | + + + + + + | Occult | Positive | | [facility] | | | Blood in | | | [facility] | | | 2nd | | | MEDICAL | | | Specimen, | | | CENTER - | | | Stool | | | LABORATORY | | + + + + + + + + | Specimen | + + | Stool - Stool | | specimen (specimen) | + + + + + + + | Performing | Address | City/State/Zipcode | Phone Number | | Organization | | | | + + + + + | [facility] | [address] | [place] | [phone] | | [facility] | | [address] | | | - LABORATORY | | | | + + + + + POC Glucose (11/22/2015 8:30 AM PDT) + +-------+ + + + | Component | Value | Ref Range | Performed | Pathologist | | | | | At | Signature | + +-------+ + + + | Glucose, | 139 | 70 - 150 mg/dL | [facility] | | | POC | | | [facility] | | [...] + | [facility] | [address] | [place] | [phone] | | [facility] | | [address] | | | - LABORATORY | | | | + + + + + Basic Metabolic Panel (11/22/2015 3:56 AM PDT) + + + + + + | Component | Value | Ref Range | Performed | Pathologist | | | | | At | Signature | + + + + + + | Na | 136 | 136 - 149 | [facility] | | | | | mmol/L | [facility] | | | | | | MEDICAL | | | | | | CENTER - | | | | | | LABORATORY | | + + + + + + | K | 4.3 | 3.5 - 5.1 | [facility] | | | | | mmol/L | [facility] | | | | | | MEDICAL | | | | | | CENTER - | | | | | | LABORATORY | | + + + + + + | Cl | 106 | 98 - 109 mmol/L | [facility] [...] + + + | Anion Gap | 10 | 3 - 16 mmol/L | [facility] | | | | | | [facility] | | | | | | MEDICAL | | | | | | CENTER - | | | | | | LABORATORY | | + + + + + + | Glucose | 149 (H) | 70 - 109 mg/dL | [facility] | | | | | | [facility] | | | | | | MEDICAL | | | | | | CENTER - | | | | | | LABORATORY | | + + + + + + | BUN | 20 (H) | 7 - 18 mg/dL | [facility] | | | | | | [facility] | | | | | | MEDICAL | | | | | | CENTER - | | | | | | LABORATORY | | + + + + + + | Creatinine | 1.67 (H) | 0.60 - 1.30 | [facility] | | | | | mg/dL | [facility] | | | | | | MEDICAL | | | | | | CENTER - | | | | | | LABORATORY | | + + + + + + | eGFR if not | 32 (L)Comment: | >=60 | [facility] | | | | GLOMERULAR FILTRATION | mL/min/1.73m2 | [facility] | | | [place] | RATE,ESTIMATED | | MEDICAL | | | | mL/min/1.26w9Oclh than | | CENTER - | | [...] + + + + | Calcium | 8.2 (L) | 8.3 - 10.5 | [facility] | | | | | mg/dL | [facility] | | | | | | MEDICAL | | | | | | CENTER - | | | | | | LABORATORY | | + + + + + + | BUN/Creatin | 12.0 | | [facility] | | | ine Ratio | | | [facility] | | [...] [address] | [place] | [phone] | | [facility] | | [address] | | | - LABORATORY | | | | + + + + + CBC with Differential (11/22/2015 3:56 AM PDT) + + + + + + | Component | Value | Ref Range | Performed | Pathologist | | | | | At | Signature | + + + + + + | White Blood | 14.6 (H) | 4.0 - 11.0 K/uL | [facility] | | | Cells | | | [facility] | | | | | | MEDICAL | | | | | | CENTER - | | | | | | LABORATORY | | + + + + + + | Red Blood | 4.92 | 3.70 - 5.20 | [facility] | | | Cells | | M/uL | [facility] | | | | | | MEDICAL | | | | | | CENTER - | | | | | | LABORATORY | | + + + + + + | Hemoglobin | 8.6 (L) | 11.5 - 16.0 | [facility] | | | | | g/dL | [facility] | | | | | | MEDICAL | | | | | | CENTER - | | | | | | LABORATORY | | + + + + + + | Hematocrit | 30.3 (L) | 34.0 - 47.0 % | [facility] | | | | | | [facility] | | | | | | MEDICAL | | | | | | CENTER - | | | | | | LABORATORY | | + + + + + + | MCV | 61.6 (L) | 83.0 - 101.0 fL | [facility] | | | | | | [facility] | | | | | | MEDICAL | | | | | | CENTER - | | | | | | LABORATORY | | + + + + + + | MCH | 17.4 (L) | 28.0 - 35.0 pg | [facility] | | | | | | [facility] | | | | | | MEDICAL | | | | | | CENTER - | | | | | | LABORATORY | | + + + + + + | MCHC | 28.3 (L) | 32.0 - 36.0 | [facility] | | | | | g/dL | [facility] | | | | | | MEDICAL | | | | | | CENTER - | | | | | | LABORATORY | | + + + + + + | RDW-CV | 21.8 (H) | <15.0 % | [facility] | | | | | | [facility] | | | | | | MEDICAL | | | | | | CENTER - | | | | | | LABORATORY | | + + + + + + | Platelet | 296 | 140 - 440 K/uL | [facility] | | | Count | | | [facility] | | | | | | MEDICAL | | | | | | CENTER - | | | | | | LABORATORY | | + + + + + + | MPV | 8.6 | fL | [facility] | | | | | | [facility] | | | | | | MEDICAL | | | | | | CENTER - | | | | | | LABORATORY | | + + + + + + | % | 72.5 | 45.0 - 82.0 % | [facility] | | | Neutrophils | | | [facility] | | | | | | MEDICAL | | | | | | CENTER - | | | | | | LABORATORY | | + + + + + + | % | 15.3 (L) | 20.0 - 45.0 % | [facility] | | | Lymphocytes | | | [facility] | | | | | | MEDICAL | | | | | | CENTER - | | | | | | LABORATORY | | + + + + + + | % Monocytes | 9.6 | 4.0 - 12.0 % | [facility] | | | | | | [facility] | | | | | | MEDICAL | | | | | | CENTER - | | | | | | LABORATORY | | + + + + + + | % | 2.3 | 0.0 - 5.0 % | [facility] | | | Eosinophils | | | [facility] | | | | | | MEDICAL | | | | | | CENTER - | | | | | | LABORATORY | | + + + + + + | % Basophils | 0.3 | 0.0 - 1.0 % | [facility] | | | | | | [facility] | | | | | | MEDICAL | | | | | | CENTER - | | | | | | LABORATORY | | + + + + + + | Absolute | 10.60 (H) | 1.80 - 8.50 | [facility] | | | Neutrophils | | K/uL | [facility] | | | | | | MEDICAL | | | | | | CENTER - | | | | | | LABORATORY | | + + + + + + | Absolute | 2.20 | 0.60 - 3.20 | [facility] | | | Lymphocytes | | K/uL | [facility] | | | | | | MEDICAL | | | | | | CENTER - | | | | | | LABORATORY | | + + + + + + | Absolute | 1.40 (H) | 0.00 - 1.00 | [facility] | | | Monocytes | | K/uL | [facility] | | | | | | MEDICAL | | | | | | CENTER - | | | | | | LABORATORY | | + + + + + + | Absolute | 0.30 | 0.00 - 0.40 | [facility] | | | Eosinophils | | K/uL | [facility] | | | | | | MEDICAL | | | | | | CENTER - | | | | | | LABORATORY | | + + + + + + | Absolute | 0.00 | 0.00 - 0.10 | [facility] | [...] + + | [facility] | [address] | [place] | [phone] | | [facility] | | [address] | | | - LABORATORY | | | | + + + + + POC Glucose (11/21/2015 8:56 PM PDT) + +-------+ + + + | Component | Value | Ref Range | Performed | Pathologist | | | | | At | Signature | + +-------+ + + + | Glucose, | 107 | 70 - 150 mg/dL | [facility] | | | POC | | | [facility] | | [address] | [place] | [phone] | | [facility] | | [address] | | | - LABORATORY | | | | + + + + + Troponin I (11/21/2015 5:53 PM PDT) + + + + + + | Component | Value | Ref Range | Performed | Pathologist | | | | | At | Signature | + + + + + + | Troponin I | 4.09 ()Comment: | <0.06 ng/mL | [facility] | | | | Consistent with previous | | [facility] | | | | results. Reference | | MEDICAL | | | | Ranges:0.00-0.06 = | | CENTER - | | | | NORMAL>0.06 = | | LABORATORY | | | | SUSPICIOUS FOR | | | | | | MYOCARDIAL DAMAGE NOTE: | | | | | | Values greater than 0.50 | | | | | | ng/mL have been shown | | | | | | to be strongly | | | | | | associated with acute | | | | | | myocardial infarction. | | | | | | [employer] | | | | | [...] + + | Performing | Address | City/State[facility] | Phone Number | | Organization | | | | + + + + + | [facility] | [address] | [place] | [phone] | | [facility] | | [address] | | | - LABORATORY | | | | + + + + + POC Glucose (11/21/2015 5:20 PM PDT) + +---------+ + + + | Component | Value | Ref Range | Performed | Pathologist | | | | | At | Signature | + +---------+ + + + | Glucose, | 240 (H) | 70 - 150 mg/dL | [facility] | | | POC | | | [facility] | | [...] | [address] | [place] | [phone] | | [facility] | | [address] | | | - LABORATORY | | | | + + + + + CV CARDIAC PROCEDURE (11/21/2015 1:30 PM PDT) + + | Specimen | + + | | + + + + + | Narrative | Performed At | + + + | [facility] | | | MD Padma 11/21/2015 13:51 CARDIAC CATHETERIZATION and | | | CORONARY ANGIOGRAPHY PATIENT NAME/: Jessie Casarez, | | | (1965) OF PROCEDURE: | | | 11/21/2015 [employer] SUPERVISOR: Marissa Rouse MD PROCEDURES | | | PERFORMED:Coronary AngiographyLeft Heart CatheterizationLeft | | | Ventriculography Indications: Acute coronary syndrome DESCRIPTION OF | | | PROCEDURE: Informed consent was obtained from the patient, and a | | | time-out was performed to verify the patient's identification and | | | planned procedure. The patient's right wrist was then prepped and | | | draped in the usual sterile fashion, and anesthetized with 1 mL of | | | buffered 1% lidocaine. For arterial access modified Seldinger | | | technique was used to place a 6 Fr. sheath in the right radial artery | | | (a normal Marcos's test was performed prior to the procedure). Right | | | heart catheterization was not performed on this patient. After | | | crossing the aortic valve, left ventriculography was performed in the | | | LOPEZ projection. Selective coronary angiogram was then performed in | | | several sagittal and oblique projections. Multipurpose diagnostic | | | catheters were used for this procedure. The patient received a total | | | of 2 mg of Versed and 100 mcg of fentanyl intravenously for conscious | | | sedation during the procedure. A total of 90 mL Omnipaque 350 | | | contrast was utilized. During procedure a total of 400 mcg | | | nitroglycerin, and 0 mcg nicardipine were given via the radial sheath, | | | and 4000 units heparin was given intravenously. The procedure had | | | no immediate complications. At the conclusion of the procedure, the | | | sheath was removed and hemostasis obtained with a TR hemostatic band. | | | FINDINGS: Hemodynamics: Ao - 173/98 mm Hg with a mean of 130 mm HgLV | | | - 190/35 mm HgLVEDP - 41 mm Hg Left ventriculography: The left | | | ventricular size and function were normal. LVEF is calculated at | | | 65%. There is no mitral valve regurgitation noted. Left main artery: | | | The left main artery is a large caliber vessel that bifurcates into | | | the left anterior descending artery and left circumflex artery. | | | Left main artery has mild diffuse disease. Left anterior descending | | | artery: The left anterior descending artery is a large caliber | | | vessel that wraps around the apex and gives rise to 2 diagonal | | | branches. The vessel has mild diffuse disease. It gives rise to 1 | | | diagonal branches. There is borderline 50-60% stenosis at the proximal | | | portion of the first diagonal branch. Left circumflex artery: The | | | left circumflex artery is a large caliber vessel that is co-dominant. | | | The vessel has Stents placement at the proximal and midportion of | | | the vessel.. It gives rise to 1 OM branches. Stent is widely open. | | | There is borderline 60-70% stenosis at the distal portion of the LCx | | | right after the stents. Right coronary artery: The right coronary | | | artery is a large caliber vessel that is co-dominant. The vessel has | | | There is a tight 90% stenosis with a translucency at the midportion | | | of the RCA.. It gives rise to a PDA and posterior lateral branches. | | | CONCLUSIONS:1. Coronary artery disease; tight 90% stenosis at the | | | midportion of the large caliber RCA with ANUJA grade 3 flow. There is | | | also a borderline lesions at the distal portion of the LCx and | | | proximal portion of D1.2. There is a co dominate circulation.3. Normal | | | LV systolic function with an EF of 65%4. Systemic blood pressure is | | | moderately elevated.5. There was successful hemostasis with a TR | | | hemostatic band. PLAN:1. Consider PCI of mid RCA in 3 days to minimize | | | contrast agent-induced nephropathy.. [facility] | | | PROVIDER:Kyle Richey DO | | |Ao - 173/98 mm Hg with a mean of 130 mm Hg | | |LV - 190/35 mm Hg | | |LVEDP - 41 mm Hg | | | | | |Left ventriculography: The left ventricular size and function | | |were normal. LVEF is calculated at 65%. There is no mitral | | |valve regurgitation noted. | | | | | |Left main artery: The left main artery is a large caliber vessel | | |that bifurcates into the left anterior descending artery and left | | |circumflex artery. Left main artery has mild diffuse disease. | | | | | |Left anterior descending artery: The left anterior descending | | |artery is a large caliber vessel that wraps around the apex and | | |gives rise to 2 diagonal branches. The vessel has mild diffuse | | |disease. It gives rise to 1 diagonal branches. There is | | |borderline 50-60% stenosis at the proximal portion of the first | | |diagonal branch. | | | | | |Left circumflex artery: The left circumflex artery is a large | | |caliber vessel that is co-dominant. The vessel has Stents | | |placement at the proximal and midportion of the vessel.. It | | |gives rise to 1 OM branches. Stent is widely open. There is | | |borderline 60-70% stenosis at the distal portion of the LCx right | | |after the stents. | | | | | |Right coronary artery: The right coronary artery is a large | | |caliber vessel that is co-dominant. The vessel has There is a | | |tight 90% stenosis with a translucency at the midportion of the | | |RCA.. It gives rise to a PDA and posterior lateral branches. | | | | | | | | |CONCLUSIONS: | | |1. Coronary artery disease; tight 90% stenosis at the midportion | | |of the large caliber RCA with ANUJA grade 3 flow. There is also a | | |borderline lesions at the distal portion of the LCx and proximal | | |portion of D1. | | |2. There is a co dominate circulation. | | |3. Normal LV systolic function with an EF of 65% | | |4. Systemic blood pressure is moderately elevated. | | |5. There was successful hemostasis with a TR hemostatic band. | | | | | |PLAN: | | |1. Consider PCI of mid RCA in 3 days to minimize contrast | | |agent-induced nephropathy.. | | | | | | | | | | | | | | | | | | | | | | | | | | |PRIMARY CARE PROVIDER: | | |Kyle Richey DO | | | | | + + + POC Glucose (11/21/2015 12:13 PM PDT) + +-------+ + + + | Component | Value | Ref Range | Performed | Pathologist | | | | | At | Signature | + +-------+ + + + | Glucose, | 146 | 70 - 150 mg/dL | [facility] | | | POC | | | [facility] | | [address] | [place] | [phone] | | [facility] | | [address] | | | - LABORATORY | | | | + + + + + Troponin I (11/21/2015 11:47 AM PDT) + + + + + + | Component | Value | Ref Range | Performed | Pathologist | | | | | At | Signature | + + + + + + | Troponin I | 4.83 ()Comment: | <0.06 ng/mL | [facility] | | | | Reference | | [facility] | | | | Ranges:0.00-0.06 = | | MEDICAL | | | | NORMAL>0.06 = | | CENTER - | | | | SUSPICIOUS FOR | | LABORATORY | | | | MYOCARDIAL DAMAGE NOTE: | | | | | | Values greater than 0.50 | | | | | | ng/mL have been shown | | | | | | to be strongly | | | | | | associated with acute | | | | | | myocardial infarction. | | | | | | [employer] | | | | | [...] | troponin levels). | | | | | | Consistent with previous | | | | | | results. | | | | + + + + + + + + | Specimen | + + | Blood | + + + + + + + | Performing | Address | City/State/Zipcode | Phone Number | | Organization | | | | + + + + + | [facility] | [address] | [place] | [phone] | | [facility] | | [address] | | | - LABORATORY | | | | + + + + + POC Glucose (11/21/2015 6:54 AM PDT) + +-------+ + + + | Component | Value | Ref Range | Performed | Pathologist | | | | | At | Signature | + +-------+ + + + | Glucose, | 150 | 70 - 150 mg/dL | [facility] | | | POC | | | [facility] | | | | | | [...] [address] | [place] | [phone] | | [facility] | | [address] | | | - LABORATORY | | | | + + + + + Troponin I (11/21/2015 5:55 AM PDT) + + + + + + | Component | Value | Ref Range | Performed | Pathologist | | | | | At | Signature | + + + + + + | Troponin I | 4.22 ()Comment: | <0.06 ng/mL | [facility] | | | | Reference | | [facility] | | | | Ranges:0.00-0.06 = | | MEDICAL | | | | NORMAL>0.06 = | | CENTER - | | | | SUSPICIOUS FOR | | LABORATORY | | | | MYOCARDIAL DAMAGE NOTE: | | | | | | Values greater than 0.50 | | | | | | ng/mL have been shown | | | | | | to be strongly | | | | | | associated with acute | | | | | | myocardial infarction. | | | | | | Consistent with previous | | | | | | results. [employer] | | | | | | [employer] | | | | | | (ACC) recommends a | | | | | | decision limit of 0.06 | | | | | | ng/mL for this assay. | | | | | | Results greater than | | | | | | 0.06 can reflect a | | | | | | pre-infarct acute | | | | | | coronary syndrome, but | | | | | | can also reflect | | | | [...] | + + + + + | [facility] | [address] | [place] | [phone] | | [facility] | | [address] | | | - LABORATORY | | | | + + + + + ECG 12 lead (11/21/2015 5:28 AM PDT) + + + + + + | Component | Value | Ref Range | Performed | Pathologist | | | | | At | Signature | + + + + + + | VENTRICULAR | 93 | BPM | [facility] | | | RATE EKG | | | | | + + + + + + | ATRIAL RATE | 93 | BPM | [facility] | | + + + + + + | P-R | 120 | ms | [facility] | | | INTERVAL | | | | | + + + + + + | QRS | 82 | ms | [facility] | | | DURATION | | | | | + + + + + + | Q-T | 360 | ms | [facility] | | | INTERVAL | | | | | + + + + + + | Q-T | 447 | ms | [facility] | | | INTERVAL | | | | | | (CORRECTED) | | | | | + + + + + + | P WAVE AXIS | 49 | degrees | [facility] | | + + + + + + | QRS AXIS | -33 | degrees | [facility] | | + + + + + + | T AXIS | 113 | degrees | [facility] | | [...] | | | | | ECG of 20-NOV-2015 | | | | | | 01:54,No significant | | | | | | change was | | | | | | foundConfirmed by | | | | | | ALVA FLYNN MD ([id number]) | | | | | | on 11/21/2015 7:06:43 AM | | | | + + [...] | | | + +---------+ + + Iron and Transferrin (11/21/2015 4:37 AM PDT) + +---------+ + + + | Component | Value | Ref Range | Performed | Pathologist | | | | | At | Signature | + +---------+ + + + | Iron | 9 (L) | 40 - 150 ug/dL | [facility] | | | | | | [facility] | | | | | | MEDICAL | | | | | | CENTER - | | | | | | LABORATORY | | + +---------+ + + + | TRANSFERRIN | 243.0 | 240.0 - 480.0 | [facility] | | | | | mg/dL | [facility] | | | | | | MEDICAL | | | | | | CENTER - | | | | | | LABORATORY | | + +---------+ + + + | TIBC | 340 | 235 - 425 ug/dL | [facility] | | | | | | [facility] | | | | | | MEDICAL | | | | | | CENTER - | | | | | | LABORATORY | | + +---------+ + + + | % | 2.6 (L) | 20.0 - 55.0 % | [facility] | | | SATURATION | | | [facility] | | [...] ST[facility] | [address] | [place], [place] | [phone] | | [facility] | | [address] | | | - LABORATORY | | | | + + + + + Basic Metabolic Panel (11/21/2015 4:37 AM PDT) + + + + + + | Component | Value | Ref Range | Performed | Pathologist | | | | | At | Signature | + + + + + + | Na | 138 | 136 - 149 | [facility] | | | | | mmol/L | [facility] | | | | | | MEDICAL | | | | | | CENTER - | | | | | | LABORATORY | | + + + + + + | K | 4.1 | 3.5 - 5.1 | [facility] | | | | | mmol/L | [facility] | | | | | | MEDICAL | | | | | | CENTER - | | | | | | LABORATORY | | + + + + + + | Cl | 112 (H) | 98 - 109 mmol/L | [facility] [...] + + + | Anion Gap | 6 | 3 - 16 mmol/L | [facility] | | | | | | [facility] | | | | | | MEDICAL | | | | | | CENTER - | | | | | | LABORATORY | | + + + + + + | Glucose | 158 (H) | 70 - 109 mg/dL | [facility] | | | | | | [facility] | | | | | | MEDICAL | | | | | | CENTER - | | | | | | LABORATORY | | + + + + + + | BUN | 25 (H) | 7 - 18 mg/dL | [facility] | | | | | | [facility] | | | | | | [facility] | | | | | | [facility] - | | | | | | LABORATORY | | + + + + + + | Creatinine | 1.72 (H) | 0.60 - 1.30 | [facility] | | | | | mg/dL | [facility] | | | | | | [facility] | | | | | | [facility] - | | | | | | LABORATORY | | + + + + + + | eGFR if not | 31 (L)Comment: | >=60 | [facility] | | | | GLOMERULAR FILTRATION | mL/min/1.73m2 | [facility] | | | [place] | RATE,ESTIMATED | | MEDICAL | | | | mL/min/1.13w0Lvmi than | | CENTER - | | [...] + + + + | Calcium | 7.8 (L) | 8.3 - 10.5 | [facility] | | | | | mg/dL | [facility] | | | | | | [facility] | | | | | | C[facility] - | | | | | | LABORATORY | | + + + + + + | BUN/Creatin | 14.5 | | [facility] | | | ine Ratio | | | [facility] | | [...] [address] | [place] | [phone] | | [facility] | | [id number] | | | - LABORATORY | | | | + + + + + Protime INR (11/21/2015 4:37 AM PDT) + + + + + + | Component | Value | Ref Range | Performed | Pathologist | | | | | At | Signature | + + + + + + | Prothrombin | 14.1 (H) | 11.3 - 13.9 | [facility] | | | Time | | seconds | [facility] | | | | | | [facility] | | | | | | CENTER - | | | | | | LABORATORY | | + + + + + + | INR | 1.04Comment: Usual Oral | 0.90 - 1.10 | [facility] | | | | Anticoagulation Range: | | [facility] | | | | 2.0 - 3.0High | | MEDICAL | | | | Level Oral | | CENTER - | | | | Anticoagulation Range: | | LABORATORY | | | | 2.5 - 3.5 | | | | + + + + + + + + | Specimen | + + | Blood | + + + + + + + | Performing | Address | City/State/Zipcode | Phone Number | | Organization | | | | + + + + + | [facility] | [address] | [place] | [phone] | | [facility] | | [address] | | | - LABORATORY | | | | + + + + + CBC with Differential (11/21/2015 4:37 AM PDT) + + + + + + | Component | Value | Ref Range | Performed | Pathologist | | | | | At | Signature | + + + + + + | White Blood | 14.2 (H) | 4.0 - 11.0 K/uL | [facility] | | | Cells | | | [facility] | | | | | | MEDICAL | | | | | | CENTER - | | | | | | LABORATORY | | + + + + + + | Red Blood | 4.60 | 3.70 - 5.20 | [facility] | | | Cells | | M/uL | [facility] | | | | | | MEDICAL | | | | | | CENTER - | | | | | | LABORATORY | | + + + + + + | Hemoglobin | 8.0 (L) | 11.5 - 16.0 | [facility] | | | | | g/dL | [facility] | | | | | | MEDICAL | | | | | | CENTER - | | | | | | LABORATORY | | + + + + + + | Hematocrit | 28.4 (L) | 34.0 - 47.0 % | [facility] | | | | | | [facility] | | | | | | [facility] | | | | | | CENTER - | | | | | | LABORATORY | | + + + + + + | MCV | 61.8 (L) | 83.0 - 101.0 fL | [facility] | | | | | | [facility] | | | | | | [facility] | | | | | | CENTER - | | | | | | LABORATORY | | + + + + + + | MCH | 17.5 (L) | 28.0 - 35.0 pg | [facility] | | | | | | [facility] | | | | | | MEDICAL | | | | | | CENTER - | | | | | | LABORATORY | | + + + + + + | MCHC | 28.2 (L) | 32.0 - 36.0 | [facility] | | | | | g/dL | [facility] | | | | | | MEDICAL | | | | | | CENTER - | | | | | | LABORATORY | | + + + + + + | RDW-CV | 22.3 (H) | <15.0 % | [facility] | | | | | | [facility] | | | | | | MEDICAL | | | | | | CENTER - | | | | | | LABORATORY | | + + + + + + | Platelet | 268 | 140 - 440 K/uL | [facility] | | | Count | | | [facility] | | | | | | [facility]ICAL | | | | | | CENTER - | | | | | | LABORATORY | | + + + + + + | MPV | 9.0 | fL | [facility] | | | | | | [facility] | | | | | | [facility] | | | | | | CENTER - | | | | | | LABORATORY | | + + + + + + | % | 52.6 | 45.0 - 82.0 % | [facility] | | | Neutrophils | | | [facility] | | | | | | MEDICAL | | | | | | CENTER - | | | | | | LABORATORY | | + + + + + + | % | 35.3 | 20.0 - 45.0 % | [facility] | | | Lymphocytes | | | [facility] | | | | | | MEDICAL | | | | | | CENTER - | | | | | | LABORATORY | | + + + + + + | % Monocytes | 6.8 | 4.0 - 12.0 % | [facility] | | | | | | [facility] | | | | | | [facility]ICAL | | | | | | CENTER - | | | | | | LABORATORY | | + + + + + + | % | 2.9 | 0.0 - 5.0 % | [facility] | | | Eosinophils | | | [facility] | | | | | | MEDICAL | | | | | | CENTER - | | | | | | LABORATORY | | + + + + + + | % Basophils | 2.4 (H) | 0.0 - 1.0 % | [facility] | | | | | | [facility] | | | | | | MEDICAL | | | | | | CENTER - | | | | | | LABORATORY | | + + + + + + | Absolute | 7.50 | 1.80 - 8.50 | [facility] | | | Neutrophils | | K/uL | [facility] | | | | | | MEDICAL | | | | | | CENTER - | | | | | | LABORATORY | | + + + + + + | Absolute | 5.00 (H) | 0.60 - 3.20 | [facility] | | | Lymphocytes | | K/uL | [facility] | | | | | | MEDICAL | | | | | | CENTER - | | | | | | LABORATORY | | + + + + + + | Absolute | 1.00 | 0.00 - 1.00 | [facility] | | | Monocytes | | K/uL | [facility] | | | | | | MEDICAL | | | | | | CENTER - | | | | | | LABORATORY | | + + + + + + | Absolute | 0.40 | 0.00 - 0.40 | [facility] | [...] + | [facility] | [address] | [place] | [phone] | | [facility] | | [address] | | | - LABORATORY | | | | + + + + + POC Glucose (11/20/2015 9:14 PM PDT) + +---------+ + + + | Component | Value | Ref Range | Performed | Pathologist | | | | | At | Signature | + +---------+ + + + | Glucose, | 195 (H) | 70 - 150 mg/dL | [facility] | | | POC | | | [facility] | | [...] | [address] | [place] | [phone] | | [facility] | | [address] | | | - LABORATORY | | | | + + + + + Occult Blood, Stool, Specimen 1 (11/20/2015 8:20 PM PDT) + + + + + + | Component | Value | Ref Range | Performed | Pathologist | | | | | At | Signature | + + + + + + | Occult | Negative | | [facility] | | | [facility] in | | | [facility] | | | MEDICAL | | | Specimen, | | | CENTER - | | | Stool | | | LABORATORY | | + + + + + + + + | Specimen | + + | Stool - Stool | | specimen (specimen) | + + + + + + + | Performing | Address | City/State/Zipcode | Phone Number | | Organization | | | | + + + + + | [facility] | [address] | [place] | [phone] | | [facility] | | [address] | | | - LABORATORY | | | | + + + + + POC Glucose (11/20/2015 5:17 PM PDT) + +-------+ + + + | Component | Value | Ref Range | Performed | Pathologist | | | | | At | Signature | + +-------+ + + + | Glucose, | 136 | 70 - 150 mg/dL | [facility] | | | POC | | | [facility] | | [...] [address] | [place] | [phone] | | [facility] | | [address] | | | - LABORATORY | | | | + + + + + Troponin I (11/20/2015 1:41 PM PDT) + + + + + + | Component | Value | Ref Range | Performed | Pathologist | | | | | At | Signature | + + + + + + | Troponin I | 9.90 ()Comment: | <0.06 ng/mL | [facility] | | | | Consistent with Previous | | [facility] | | | | Results Reference | | MEDICAL | | | | Ranges:0.00-0.06 = | | CENTER - | | | | NORMAL>0.06 = | | LABORATORY | | | | SUSPICIOUS FOR | | | | | | MYOCARDIAL DAMAGE NOTE: | | | | | | Values greater than 0.50 | | | | | | ng/mL have been shown | | | | | | to be strongly | | | | | | associated with acute | | | | | | myocardial infarction. | | | | | | [employer] | | | | | [...] | + + + + + | [facility] | [address] | [place] | [phone] | | [facility] | | [address] | | | - LABORATORY | | | | + + + + + POC Glucose (11/20/2015 12:55 PM PDT) + +---------+ + + + | Component | Value | Ref Range | Performed | Pathologist | | | | | At | Signature | + +---------+ + + + | Glucose, | 181 (H) | 70 - 150 mg/dL | [facility] | | | POC | | | [facility] | | | | | | [...] + + | [facility] | [address] | [place] | [phone] | | [facility] | | [address] | | | - LABORATORY | | | | + + + + + ECHO Complete (11/20/2015 9:54 AM PDT) + +-------+ + + + | Component | Value | Ref Range | Performed | Pathologist | | | | | At | Signature | + +-------+ + + + | LVEF-TTE | 63 | | | | | TRANSTHORAC | | | | | | IC ECHO | | | | | + +-------+ + + + + + | Specimen | + + | | + + + + -+ | Narrative | Performed At | + + -+ | Transthoracic | | | Echocardiography Report (TTE) Demographics Patient Name FAITH | | | JESSIE Room Number 451 A | | | Patient Number [id number] Date of Study | | | 11/20/2015 Visit Number [id number] Accession | | | [id number] Referring Physician ALCIRA Hartman Number | | | Date of 1965 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 Procedure | | | dateDate: 11/20/2015Start: 09:15 AM Indications: ACUTE CORONARY | | | SYNDROME and myocardial Infarction, [id number]/I21.4. Height: 62 | | | inchesWeight: 209.88 poundsBSA: 1.95 m^2BMI: 38.39 kg/m^2Rhythm: | | | Normal Sinus Rhythm ConclusionsSummary1. Mild biatrial dilatation.2. | | | Normal left ventricular size, wall thickness and motion. Preserved | | | leftventricular systolic function. LVEF is 60%.3. Normal valvular | | | structure.4. Normal right-sided pressure.5. Normal IVC with normal | | | respiratory collapse. | | | Signature | | | | | | AM | | | -------- FindingsMitral ValveStructurally normal mitral valve without | | | significant stenosis orregurgitation.Aortic ValveAortic valve is | | | trileaflet without significant stenosis or regurgitation.Tricuspid | | | ValveStructurally normal tricuspid valve without significant stenosis | | | orregurgitation.Pulmonic ValveStructurally normal pulmonic valve | | | without significant stenosis orregurgitation.Left AtriumThe left | | | atrium is mildly dilated.Left VentricleLeft ventricle is normal in | | | size and function. Ejection fraction isestimated at 60 %.Right | | | AtriumRight atrial size is mildly dilated.Right VentricleNormal right | | | ventricular structure and function. Valves Mitral Valve Peak E-Wave: | | | 1.07 m/s Peak A-Wave: 0.65 m/s Tissue Doppler Septal e' Velocity: | | | 0.10 m/s Lateral E/e' Ratio0 Aortic Valve | | | Tricuspid Valve TR Velocity: 2.16 m/s Structures Left Atrium LA A/P | | | Dimension: 4.5 cm LA Area: 18.94 cm^2 LA | | | Vol/BSA Index: 36 mL/m^2 LA Volume: 71.02 ml | | | Left Ventricle EF Calculated: 61.54% Miscellaneous Aorta Aortic | | | Root: 2.71 cm | | |3. Normal valvular structure. | | |4. Normal right-sided pressure. | | |5. Normal IVC with normal respiratory collapse. | | | | | |Signature | | | | | | Electronically signed by MARISSA ROUSE MD(Interpreting physician) on | | | 11/20/2015 11:15 AM | | | | | | | | |Findings | | |Mitral Valve | | |Structurally normal mitral valve without significant stenosis or | | |regurgitation. | | |Aortic Valve | | |Aortic valve is trileaflet without significant stenosis or regurgitation. | | |Tricuspid Valve | | |Structurally normal tricuspid valve without significant stenosis or | | |regurgitation. | | |Pulmonic Valve | | |Structurally normal pulmonic valve without significant stenosis or | | |regurgitation. | | |Left Atrium | | |The left atrium is mildly dilated. | | |Left Ventricle | | |Left ventricle is normal in size and function. Ejection fraction is | | |estimated at 60 %. | | |Right Atrium | | |Right atrial size is mildly dilated. | | |Right Ventricle | | |Normal right ventricular structure and function. | | | | | |Valves | | | | | | Mitral Valve | | | | | | Peak E-Wave: 1.07 m/s | | | Peak A-Wave: 0.65 m/s | | | | | | Tissue Doppler | | | | | | Septal e' Velocity: 0.10 m/s Lateral E/e' Ratio0 | | | | | | Aortic Valve | | | | | | Tricuspid Valve | | | | | | TR Velocity: 2.16 m/s | | | | | |Structures | | | | | | Left Atrium | | | | | | LA A/P Dimension: 4.5 cm LA Area: 18.94 cm^2 | | | LA Vol/BSA Index: 36 mL/m^2 LA Volume: 71.02 ml | | | | | | Left Ventricle | | | | | | EF Calculated: 61.54% | | | | | | Miscellaneous | | | | | | Aorta | | | | | | Aortic Root: 2.71 cm | | | | | + + -+ + + | Procedure Note | + + | Jayme Kelly Results In - 11/20/2015 11:15 AM PDT Transthoracic Echocardiography Report | | (TTE) Demographics Patient Name FAITH JIMENEZ Room Number 451 | | A Patient Number [id number] Date of Study 11/20/2015 Visit Number | | [id number] Referring Physician ALCIRA Hartman | | Number Date of 1965 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 Mild biatrial dilatation.2. Normal left ventricular size, | | wall thickness and motion. Preserved leftventricular systolic function. LVEF is 60%.3. | | Normal valvular structure.4. Normal right-sided pressure.5. Normal IVC with normal | | respiratory | | collapse.Signature | | ------ Electronically signed by MARISSA ROUSE MD(Interpreting physician) on | | 11/20/2015 11:15 | | AM FindingsMi | | tral ValveStructurally normal mitral valve without significant stenosis | | orregurgitation.Aortic ValveAortic valve is trileaflet without significant stenosis or | | regurgitation.Tricuspid ValveStructurally normal tricuspid valve without significant | | stenosis orregurgitation.Pulmonic ValveStructurally normal pulmonic valve without | | significant stenosis orregurgitation.Left AtriumThe left atrium is mildly dilated.Left | | VentricleLeft ventricle is normal in size and function. Ejection fraction isestimated at | | 60 %.Right AtriumRight atrial size is mildly dilated.Right VentricleNormal right | | ventricular structure and function.Valves Mitral Valve Peak E-Wave: 1.07 m/s Peak | | A-Wave: 0.65 m/s Tissue Doppler Septal e' Velocity: 0.10 m/s Lateral E/e' | | Ratio0 Aortic Valve Tricuspid Valve TR Velocity: 2.16 m/sStructures Left Atrium LA A/P | | Dimension: 4.5 cm LA Area: 18.94 cm^2 LA Vol/BSA Index: 36 mL/m^2 | | LA Volume: 71.02 ml Left Ventricle EF Calculated: 61.54% Miscellaneous Aorta | | Aortic Root: 2.71 cm | |410.90/I21.4. | | | |Height: 62 inchesWeight: 209.88 poundsBSA: 1.95 m^2BMI: 38.39 kg/m^2 | |Rhythm: Normal Sinus Rhythm | | | |Conclusions | |Summary | |1. Mild biatrial dilatation. | |2. Normal left ventricular size, wall thickness and motion. Preserved left | |ventricular systolic function. LVEF is 60%. | |3. Normal valvular structure. | |4. Normal right-sided pressure. | |5. Normal IVC with normal respiratory collapse. | | | |Signature | | | | Electronically signed by MARISSA ROUSE MD(Interpreting physician) on | | 11/20/2015 11:15 AM | | | | | |Findings | |Mitral Valve | |Structurally normal mitral valve without significant stenosis or | |regurgitation. | |Aortic Valve | |Aortic valve is trileaflet without significant stenosis or regurgitation. | |Tricuspid Valve | |Structurally normal tricuspid valve without significant stenosis or | |regurgitation. | |Pulmonic Valve | |Structurally normal pulmonic valve without significant stenosis or | |regurgitation. | |Left Atrium | |The left atrium is mildly dilated. | |Left Ventricle | |Left ventricle is normal in size and function. Ejection fraction is | |estimated at 60 %. | |Right Atrium | |Right atrial size is mildly dilated. | |Right Ventricle | |Normal right ventricular structure and function. | | | |Valves | | | | Mitral Valve | | | | Peak E-Wave: 1.07 m/s | | Peak A-Wave: 0.65 m/s | | | | Tissue Doppler | | | | Septal e' Velocity: 0.10 m/s Lateral E/e' Ratio0 | | | | Aortic Valve | | | | Tricuspid Valve | | | | TR Velocity: 2.16 m/s | | | |Structures | | | | Left Atrium | | | | LA A/P Dimension: 4.5 cm LA Area: 18.94 cm^2 | | LA Vol/BSA Index: 36 mL/m^2 LA Volume: 71.02 ml | | | | Left Ventricle | | | | EF Calculated: 61.54% | | | | Miscellaneous | | | | Aorta | | | | Aortic Root: 2.71 cm | + + Basic Metabolic Panel (11/20/2015 8:00 AM PDT) + + + + + + | Component | Value | Ref Range | Performed | Pathologist | | | | | At | Signature | + + + + + + | Na | 134 (L) | 136 - 149 | [facility] | | | | | mmol/L | [facility] | | | | | | MEDICAL | | | | | | CENTER - | | | | | | LABORATORY | | + + + + + + | K | 4.1 | 3.5 - 5.1 | [facility] | | | | | mmol/L | [facility] | | | | | | MEDICAL | | | | | | CENTER - | | | | | | LABORATORY | | + + + + + + | Cl | 106 | 98 - 109 mmol/L | [facility] | | | | | | [facility] | | | | | | MEDICAL | | | | | | CENTER - | | | | | | LABORATORY | | + + + + + + | CO2 | 19 (L) | 24 - 31 mmol/L | [...] + + + + | Glucose | 233 (H) | 70 - 109 mg/dL | [facility] | | | | | | [facility] | | | | | | MEDICAL | | | | | | CENTER - | | | | | | LABORATORY | | + + + + + + | BUN | 35 (H) | 7 - 18 mg/dL | [facility] | | | | | | [facility] | | | | | | MEDICAL | | | | | | CENTER - | | | | | | LABORATORY | | + + + + + + | Creatinine | 1.87 (H) | 0.60 - 1.30 | [facility] | | | | | mg/dL | [facility] | | | | | | MEDICAL | | | | | | CENTER - | | | | | | LABORATORY | | + + + + + + | eGFR if not | 28 (L)Comment: | >=60 | [facility] | | | | GLOMERULAR FILTRATION | mL/min/1.73m2 | [facility] | | | [place] | RATE,ESTIMATED | | MEDICAL | | | | mL/min/1.96h9Cssi than | | CENTER - | | [...] + + + + | Calcium | 8.3 | 8.3 - 10.5 | [facility] | | | | | mg/dL | [facility] | | | | | | MEDICAL | | | | | | CENTER - | | | | | | LABORATORY | | + + + + + + | BUN/Creatin | 18.7 | | [facility] | | | ine Ratio | | | [facility] | | [address] | [place] | [phone] | | [facility] | | [address] | | | - LABORATORY | | | | + + + + + Troponin I (11/20/2015 8:00 AM PDT) + + + + + + | Component | Value | Ref Range | Performed | Pathologist | | | | | At | Signature | + + + + + + | Troponin I | 12.39 ()Comment: | <0.06 ng/mL | [facility] | | | | Reference | | [facility] | | | | Ranges:0.00-0.06 = | | MEDICAL | | | | NORMAL>0.06 = | | CENTER - | | | | SUSPICIOUS FOR | | LABORATORY | | | | MYOCARDIAL DAMAGE NOTE: | | | | | | Values greater than 0.50 | | | | | | ng/mL have been shown | | | | | | to be strongly | | | | | | associated with acute | | | | | | myocardial infarction. | | | | | | [employer] | | | | | [...] | troponin levels). | | | | | | Consistent with previous | | | | | | results. | | | | + + + + + + + + | Specimen | + + | Blood | + + + + + + + | Performing | Address | City/State/Zipcode | Phone Number | | Organization | | | | + + + + + | [facility] | [address] | [place] | [phone] | | [facility] | | [address] | | | - LABORATORY | | | | + + + + + POC Glucose (11/20/2015 7:11 AM PDT) + +---------+ + + + | Component | Value | Ref Range | Performed | Pathologist | | | | | At | Signature | + +---------+ + + + | Glucose, | 238 (H) | 70 - 150 mg/dL | [facility] | | | POC | | | [facility] | | [...] + | [facility] | [address] | [place] | [phone] | | [facility] | | [address] | | | - LABORATORY | | | | + + + + + POC Glucose (11/20/2015 4:31 AM PDT) + +---------+ + + + | Component | Value | Ref Range | Performed | Pathologist | | | | | At | Signature | + +---------+ + + + | Glucose, | 409 (H) | 70 - 150 mg/dL | [facility] | | | POC | | | [facility] | | [...] | + + + + + | [facility] | [address] | [place] | [phone] | | [facility] | | [address] | | | - LABORATORY | | | | + + + + + Ursulaime INR (11/20/2015 3:41 AM PDT) + + + + + + | Component | Value | Ref Range | Performed | Pathologist | | | | | At | Signature | + + + + + + | Prothrombin | 13.9 | 11.3 - 13.9 | [facility] | | | Time | | seconds | [facility] | | | | | | MEDICAL | | | | | | CENTER - | | | | | | LABORATORY | | + + + + + + | INR | 1.02Comment: Usual Oral | 0.90 - 1.10 | [facility] | | | | Anticoagulation Range: | | [facility] | | | | 2.0 - 3.0High | | MEDICAL | | | | Level Oral | | CENTER - | | | | Anticoagulation Range: | | LABORATORY | | | | 2.5 - 3.5 | | | | + + + + + + + + | Specimen | + + | Blood | + + + + + + + | Performing | Address | City/State/Zipcode | Phone Number | | Organization | | | | + + + + + | [facility] | [address] | [place] | [phone] | | [facility] | | [address] | | | - LABORATORY | | | | + + + + + PTT (11/20/2015 3:41 AM PDT) + +-------+ + + + | Component | Value | Ref Range | Performed | Pathologist | | | | | At | Signature | + +-------+ + + + | aPTT | 24 | 22 - 36 seconds | [facility] | | | | | | [facility] | | [...] + | [facility] | [address] | [place] | [phone] | | [facility] | | [address] | | | - LABORATORY | | | | + + + + + POC Glucose (11/20/2015 2:23 AM PDT) + +---------+ + + + | Component | Value | Ref Range | Performed | Pathologist | | | | | At | Signature | + +---------+ + + + | Glucose, | 453 (H) | 70 - 150 mg/dL | [facility] | | | POC | | | [facility] | | [...] [address] | [place] | [phone] | | [facility] | | [address] | | | - LABORATORY | | | | + + + + + TSH (11/20/2015 1:57 AM PDT) + + + + + + | Component | Value | Ref Range | Performed | Pathologist | | | | | At | Signature | + + + + + + | TSH | 0.99Comment: All TSH | 0.34 - 5.60 | [facility] | | | | samples are screened | uIU/mL | [facility] | | | | using a 2nd Generation | | MEDICAL | | | | test, and are reflexed | | CENTER - | | | | to a 3rd Generation test | | LABORATORY | | | | if indicated. | | | | + + + + + + + + | Specimen | + + | Blood | + + + + + + + | Performing | Address | City/State/Zipcode | Phone Number | | Organization | | | | + + + + + | [facility] | [address] | [place] | [phone] | | [facility] | | [address] | | | - LABORATORY | | | | + + + + + Folate (11/20/2015 1:57 AM PDT) + +---------+ + + + | Component | Value | Ref Range | Performed | Pathologist | | | | | At | Signature | + +---------+ + + + | FOLATE | 5.0 (L) | >5.8 ng/mL | [facility] | | | | | | [facility] | | [...] [address] | [place] | [phone] | | [facility] | | [address] | | | - LABORATORY | | | | + + + + + Vitamin B-12 (11/20/2015 1:57 AM PDT) + + + + + + | Component | Value | Ref Range | Performed | Pathologist | | | | | At | Signature | + + + + + + | VITAMIN | 467Comment: DEFICIENT: | 180 - 914 pg/mL | [facility] | | | B-12 | <145 | | [facility] | | | | pg/mLINDETERMINATE: | | MEDICAL | | | | 145-180 pg/mL | | CENTER - | | | | | | LABORATORY | | + + + + + + + + | Specimen | + + | Blood | + + + + + + + | Performing | Address | City/State/Zipcode | Phone Number | | Organization | | | | + + + + + | [facility] | [address] | [place], [place] | [phone] | | [facility] | | [address] | | | - LABORATORY | | | | + + + + + Ferritin (11/20/2015 1:57 AM PDT) + +-------+ + + + | Component | Value | Ref Range | Performed | Pathologist | | | | | At | Signature | + +-------+ + + + | FERRITIN | 12 | 11-<307 ng/mL | [facility] | | | | | [...] + | [facility] | [address] | [place] | [phone] | | [facility] | | [address] | | | - LABORATORY | | | | + + + + + Iron and Transferrin (11/20/2015 1:57 AM PDT) + +---------+ + + + | Component | Value | Ref Range | Performed | Pathologist | | | | | At | Signature | + +---------+ + + + | Iron | 12 (L) | 40 - 150 ug/dL | [facility] | | | | | | [facility] | | | | | | MEDICAL | | | | | | CENTER - | | | | | | LABORATORY | | + +---------+ + + + | TRANSFERRIN | 336.0 | 240.0 - 480.0 | [facility] | | | | | mg/dL | [facility] | | | | | | MEDICAL | | | | | | CENTER - | | | | | | LABORATORY | | + +---------+ + + + | TIBC | 470 (H) | 235 - 425 ug/dL | [facility] | | | | | | [facility] | | | | | | MEDICAL | | | | | | CENTER - | | | | | | LABORATORY | | + +---------+ + + + | % | 2.6 (L) | 20.0 - 55.0 % | [facility] | | | SATURATION | | | [facility] | | [...] + | [facility] | [address] | [place] | [phone] | | [facility] | | [address] | | | - LABORATORY | | | | + + + + + Slide Review, Peripheral Smear (11/20/2015 1:57 AM PDT) + + + + + + | Component | Value | Ref Range | Performed | Pathologist | | | | | At | Signature | + + + + + + | WBC | Normal | | [facility] | | | Morphology | | | [facility] | | | | | | [facility] | | | | | | [facility] - | | | | | | LABORATORY | | + + + + + + | Platelet | Adequate | Adequate | [facility] | | | Estimate | | | [facility] | | | | | | [facility] | | | | | | [facility] - | | | | | | LABORATORY | | + + + + + + | Hypochromas | Slight (A) | (none) | [facility] | | | ia | | | [facility] | | | | | | [facility] | | | | | | [facility] - | | | | | | LABORATORY | | + + + + + + | RBC | Moderate (A) | (none) | [facility] | | | Microcytes | | | [facility] | | | | | | [facility] | | | | | | CENTER - | | | | | | LABORATORY | | + + + + + + | Anisocytosi | Moderate (A) | (none) | [facility] | | | s | | | [facility] | | | | | | [facility] | | | | | | [facility] - | | | | | | LABORATORY | | + + + + + + + + | Specimen | + + | Blood | + + + + + | Narrative | Performed At | + + + | Slight Poik No Bands seen. | [facility] | | | [facility] | | | [facility] | | | - LABORATORY | + + + + + + + + | Performing | Address | City/State/Zipcode | Phone Number | | Organization | | | | + + + + + | [facility] | [address] | [place] | [phone] | | [facility] | | [address] | | | - LABORATORY | | | | + + + + + Phosphorus (11/20/2015 1:57 AM PDT) + +---------+ + + + | Component | Value | Ref Range | Performed | Pathologist | | | | | At | Signature | + +---------+ + + + | Phosphorus | 4.9 (H) | 2.5 - 4.6 mg/dL | [facility] | | | | [...] + | [facility] | [address] | [place] | [phone] | | [facility] | | [address] | | | - LABORATORY | | | | + + + + + Basic Metabolic Panel (11/20/2015 1:57 AM PDT) + + + + + + | Component | Value | Ref Range | Performed | Pathologist | | | | | At | Signature | + + + + + + | Na | 134 (L) | 136 - 149 | [facility] | | | | | mmol/L | [facility] | [facility] | [facility] | | | | | | [facility] - | | | | | | LABORATORY | | + + + + + + | K | 4.7 | 3.5 - 5.1 | [facility] | | | | | mmol/L | [facility] | | | [facility] | [facility] | | | | | | CENTER - | | | | | | LABORATORY | | + + + + + + | Cl | 103 | 98 - 109 mmol/L | [facility] | | | | | | [facility] | | | [facility] | [facility] | | | | | | CENTER - | | | | | | LABORATORY | | + + + + + + | CO2 | 21 (L) | 24 - 31 mmol/L | [facility] | | | | | [facility] | | [facility] | [facility] | [facility] | | | | | | CENTER - | | | | | | LABORATORY | | + + + + + + | Anion Gap | 10 | 3 - 16 mmol/L | [facility] | | | [facility] | [facility] | [facility] | | | | | | CENTER - | | | | | | LABORATORY | | + + + + + + | Glucose | 494 (H) | 70 - 109 mg/dL | [facility] | | [facility] | | [facility] | [facility] | | | | | | CENTER - | | | | | | LABORATORY | | + + + + + + | BUN | 38 (H) | 7 - 18 mg/dL | [facility] | | | | | [facility] | [facility] | [facility] | [facility] | | | | | | CENTER - | | | | | | LABORATORY | | + + + + + + | Creatinine | 1.97 (H) | 0.60 - 1.30 | [facility] | | | | | mg/dL | [facility] | | | | | | [facility] | | | | | | CENTER - | | | | | | LABORATORY | | + + + + + + | eGFR if not | 27 (L)Comment: | >=60 | [facility] | | | | GLOMERULAR FILTRATION | mL/min/1.73m2 | [facility] | | | [place] | RATE,ESTIMATED | | MEDICAL | | | | mL/min/1.06e9Lwjj than | | CENTER - | | [...] + + + + | Calcium | 9.1 | 8.3 - 10.5 | [facility] | | | | | mg/dL | [facility] | | | | | | [facility]ICAL | | | | | | CENTER - | | | | | | LABORATORY | | + + + + + + | BUN/Creatin | 19.3 | | [facility] | | | ine Ratio | | | [facility] | | [...] + | [facility] | [address] | [place] | [phone] | | [facility] | | [address] | | | - LABORATORY | | | | + + + + + Beta Hydroxybutyrate, Quant (11/20/2015 1:57 AM PDT) + +-------+ + + + | Component | Value | Ref Range | Performed | Pathologist | | | | | At | Signature | + +-------+ + + + | Beta | 0.13 | 0.02 - 0.27 | [facility] | | | Hydroxybuty | | mmol/L | [facility] | | | rate | | | MEDICAL | | | [...] [address] | [place] | [phone] | | [facility] | | [address] | | | - LABORATORY | | | | + + + + + Hepatic Function Panel (11/20/2015 1:57 AM PDT) + +--------+ + + + | Component | Value | Ref Range | Performed | Pathologist | | | | | At | Signature | + +--------+ + + + | Bilirubin | 0.6 | 0.1 - 1.5 mg/dL | [facility] | | | Total | | | [facility] | | | | | | [facility] | | | | | | CENTER - | | | | | | LABORATORY | | + +--------+ + + + | Total | 7.1 | 6.0 - 7.8 g/dL | [facility] | | | Protein | | | [facility] | | | | | | MEDICAL | | | | | | CENTER - | | | | | | LABORATORY | | + +--------+ + + + | Albumin | 3.4 | 3.2 - 5.0 g/dL | [facility] | | | | | | [facility] | | | | | | [facility]ICAL | | | | | | CENTER - | | | | | | LABORATORY | | + +--------+ + + + | AST | 46 (H) | 10 - 42 U/L | [facility] | | | | | | [facility] | | | | | | [facility] | | | | | | CENTER - | | | | | | LABORATORY | | + +--------+ + + + | ALT | 40 | 6 - 45 U/L | [facility] | | | | | | [facility] | | | | | | [facility]ICAL | | | | | | CENTER - | | | | | | LABORATORY | | + +--------+ + + + | Alkaline | 69 | 40 - 110 U/L | [facility] | | | Phosphatase | | | [facility] | | | | | | MEDICAL | | | | | | CENTER - | | | | | | LABORATORY | | + +--------+ + + + | Globulin | 3.7 | 2.1 - 3.8 g/dL | [facility] | | | | | | [facility] | | | | | | [facility]ICAL | | | | | | CENTER - | | | | | | LABORATORY | | + +--------+ + + + | Albumin/Lissette | 0.9 | 0.8 - 2.0 | [facility] | | | bulin Ratio | | | [facility] | | | | | | MEDICAL | | | | | | CENTER - | | | | | | LABORATORY | | + +--------+ + + + | Bilirubin, | 0.10 | 0.00 - 0.20 | [facility] | | | Direct | | mg/dl | [facility] | | | | | | MEDICAL | | | | | | CENTER - | | | | | | LABORATORY | | + +--------+ + + + + + | Specimen | + + | Blood | + + + + + + + | Performing | Address | City/State/Zipcode | Phone Number | | Organization | | | | + + + + + | [facility] | [address] | [place] | [phone] | | [facility] | | [address] | | | - LABORATORY | | | | + + + + + Hemoglobin A1C (11/20/2015 1:57 AM PDT) + + + + + + | Component | Value | Ref Range | Performed | Pathologist | | | | | At | Signature | + + + + + + | Hemoglobin | 10.7 (H) | 4.3 - 6.0 % | [facility] | | | A1c | | | [facility] | | | | | | MEDICAL | | | | | | CENTER - | | | | | | LABORATORY | | + + + + + + | Estimated | 260 | mg/dL | [facility] | | | Average | | | [facility] | | | Glucose | | | MEDICAL | | | [...] [address] | [place] | [phone] | | [facility] | | [address] | | | - LABORATORY | | | | + + + + + Magnesium (11/20/2015 1:57 AM PDT) + +-------+ + + + | Component | Value | Ref Range | Performed | Pathologist | | | | | At | Signature | + +-------+ + + + | Magnesium | 2.1 | 1.8 - 2.5 mg/dL | [facility] | | | | [...] + | [facility] | [address] | [place] | [phone] | | [facility] | | [address] | | | - LABORATORY | | | | + + + + + B Type Natriuretic Peptide (11/20/2015 1:57 AM PDT) + +---------+ + + + | Component | Value | Ref Range | Performed | Pathologist | | | | | At | Signature | + +---------+ + + + | BNP | 230 (H) | <100 pg/mL | [facility] | | | | | [...] | [address] | [place], [place] | [phone] | | [facility] | | [address] | | | - LABORATORY | | | | + + + + + Lipid Panel (11/20/2015 1:57 AM PDT) + + + + + + | Component | Value | Ref Range | Performed | Pathologist | | | | | At | Signature | + + + + + + | Triglycerid | 304 (H) | 35 - 160 mg/dL | [facility] | | | es | | | [facility] | | | | | | MEDICAL | | | | | | CENTER - | | | | | | LABORATORY | | + + + + + + | Cholesterol | 257 (H) | 150 - 200 mg/dL | [facility] | | | | | | [facility] | | | | | | MEDICAL | | | | | | CENTER - | | | | | | LABORATORY | | + + + + + + | HDL | 50Comment: New HDL | 28 - 83 mg/dL | [facility] | | | | Reference Range as of | | [facility] | | | | January 19, 2015 | | MEDICAL | | | | Values may be 10-20% | | CENTER - | | | | lower with new, | | LABORATORY | | | | standardized method. | | | | + + + + + + | Chol/HDL | 5.1 | | [facility] | | | Ratio | | | [facility] | | | | | | MEDICAL | | | | | | CENTER - | | | | | | LABORATORY | | + + + + + + | LDL, | 146 (H) | <=130 mg/dL | [facility] | | | Calculated | | | [facility] | | | | | | [...] [address] | [place] | [phone] | | [facility] | | [address] | | | - LABORATORY | | | | + + + + + Troponin I (11/20/2015 1:57 AM PDT) + + + + + + | Component | Value | Ref Range | Performed | Pathologist | | | | | At | Signature | + + + + + + | Troponin I | 6.31 ()Comment: | <0.06 ng/mL | [facility] | | | | Reference | | [facility] | | | | Ranges:0.00-0.06 = | | MEDICAL | | | | NORMAL>0.06 = | | CENTER - | | | | SUSPICIOUS FOR | | LABORATORY | | | | MYOCARDIAL DAMAGE NOTE: | | | | | | Values greater than 0.50 | | | | | | ng/mL have been shown | | | | | | to be strongly | | | | | | associated with acute | | | | | | myocardial | | | | | | infarction.Critical | | | | | | Result called to and | | | | | | read back by | | | | | | Keri on 11/20/2015 at | | | | | | 2:45 by Miko Pabon | | | | | | [place]. The [place] | | | | | | [employer] of [employer]iology | | | | | | (ACC) recommends a | | | | | | decision limit of 0.06 | | | | | | ng/mL for this assay. | | | | | | Results greater than | | | | | | 0.06 can reflect a | | | | | | pre-infarct acute | | | | | | coronary syndrome, but | | | | | | can also reflect | | | | [...] + | [facility] | [address] | [place] | [phone] | | [facility] | | [address] | | | - LABORATORY | | | | + + + + + CBC with Differential (11/20/2015 1:57 AM PDT) + + + + + + | Component | Value | Ref Range | Performed | Pathologist | | | | | At | Signature | + + + + + + | White Blood | 18.1 (H) | 4.0 - 11.0 K/uL | [facility] | | | Cells | | | [facility] | | | | | | MEDICAL | | | | | | CENTER - | | | | | | LABORATORY | | + + + + + + | Red Blood | 5.05 | 3.70 - 5.20 | [facility] | | | Cells | | M/uL | [facility] | | | | | | MEDICAL | | | | | | CENTER - | | | | | | LABORATORY | | + + + + + + | Hemoglobin | 8.8 (L) | 11.5 - 16.0 | [facility] | | | | | g/dL | [facility] | | | | | [facility] | | | | | | CENTER - | | | | | | LABORATORY | | + + + + + + | Hematocrit | 31.0 (L) | 34.0 - 47.0 % | [facility] | | | | | | [facility] | | | | | | MEDICAL | | | | | | CENTER - | | | | | | LABORATORY | | + + + + + + | MCV | 61.4 (L) | 83.0 - 101.0 fL | [facility] | | | | | | [facility] | | | | | | MEDICAL | | | | | | CENTER - | | | | | | LABORATORY | | + + + + + + | MCH | 17.4 (L) | 28.0 - 35.0 pg | [facility] | | | | | | [facility] | | | | | | MEDICAL | | | | | | CENTER - | | | | | | LABORATORY | | + + + + + + | MCHC | 28.3 (L) | 32.0 - 36.0 | [facility] | | | | | g/dL | [facility] | | | | | | MEDICAL | | | | | | CENTER - | | | | | | LABORATORY | | + + + + + + | RDW-CV | 22.1 (H) | <15.0 % | [facility] | | | | | | [facility] | | | | | | MEDICAL | | | | | | CENTER - | | | | | | LABORATORY | | + + + + + + | Platelet | 248 | 140 - 440 K/uL | [facility] | | | Count | | | [facility] | | | | | | MEDICAL | | | | | | CENTER - | | | | | | LABORATORY | | + + + + + + | MPV | 8.8 | fL | [facility] | | | | | | [facility] | | | | | | MEDICAL | | | | | | CENTER - | | | | | | LABORATORY | | + + + + + + | % | 76.8 | 45.0 - 82.0 % | [facility] | | | Neutrophils | | | [facility] | | | | | | MEDICAL | | | | | | CENTER - | | | | | | LABORATORY | | + + + + + + | % | 13.2 (L) | 20.0 - 45.0 % | [facility] | | | Lymphocytes | | | [facility] | | | | | | MEDICAL | | | | | | CENTER - | | | | | | LABORATORY | | + + + + + + | % Monocytes | 9.2 | 4.0 - 12.0 % | [facility] | | | | | | [facility] | | | | | | MEDICAL | | | | | | CENTER - | | | | | | LABORATORY | | + + + + + + | % | 0.0 | 0.0 - 5.0 % | [facility] [...] + + + + | Absolute | 13.90 (H) | 1.80 - 8.50 | [facility] | | | Neutrophils | | K/uL | [facility] | | | | | | MEDICAL | | | | | | CENTER - | | | | | | LABORATORY | | + + + + + + | Absolute | 2.40 | 0.60 - 3.20 | [facility] | | | Lymphocytes | | K/uL | [facility] | | | | | | MEDICAL | | | | | | CENTER - | | | | | | LABORATORY | | + + + + + + | Absolute | 1.70 (H) | 0.00 - 1.00 | [facility] | | | Monocytes | | K/uL | [facility] | | | | | | MEDICAL | | | | | | CENTER - | | | | | | LABORATORY | | + + + + + + | Absolute | 0.00 | 0.00 - 0.40 | [facility] | | | Eosinophils | | K/uL | [facility] | | | | | | MEDICAL | | | | | | CENTER - | | | | | | LABORATORY | | + + + + + + | Absolute | 0.20 (H) | 0.00 - 0.10 | [facility] | | | Basophils | | K/uL | [facility] | | | | [...] [address] | [place] | [phone] | | [facility] | | [address] | | | - LABORATORY | | | | + + + + + ECG 12 lead (11/20/2015 1:54 AM PDT) + + + + + [...] + + + + | QRS | 86 | ms | [facility] | | | DURATION | | | | | + + + + + + | Q-T | 352 | ms | [facility] | | | INTERVAL | | | | | + + + + + + | Q-T | 428 | ms | [facility] | | | INTERVAL | | | | | | (CORRECTED) | | | | | + + + + + + | P WAVE AXIS | 46 | degrees | [facility] | | + + + + + + | QRS AXIS | -22 | degrees | [facility] | | + + + + + + | T AXIS | 107 | degrees | [facility] | | + + + + + + | INTERPRETAT | Normal sinus rhythmLeft | | [facility] | | | ION TEXT | ventricular | | | | | | hypertrophylateral ST | | | | | | and T-wave abnormalities | | | | | | concerning for | | | | | | ischemiaAbnormal ECGWhen | | | | | | compared with ECG of | | | | | | 20-NOV-2015 01:53, | | | | | | (Unconfirmed)No | | | | | | significant change was | | | | | | foundConfirmed by | | | | | | ALVA FLYNN MD ([id number]) | | | | | | on 11/20/2015 8:05:17 AM | | | | + + [...] | | + +---------+ + + Culture, MRSA (11/20/2015 1:44 AM PDT) + + + + + + | Component | Value | Ref Range | Performed | Pathologist | | | | | At | Signature | + + + + + + | Culture | Negative for MRSA by | | [facility] | | | | chromogenic agar method | | [facility] | | | | | | MEDICAL | | | | | | CENTER - | | | | | | LABORATORY | | + + + + + + | Culture | 2+ Coagulase positive | | [facility] | | | | Staphylococcus | | [facility] | | | | | | MEDICAL | | | | | | CENTER - | | | | | | LABORATORY | | + + + + + + + + | Specimen | + + | Respiratory - Both | | anterior nares (body | | structure) | + + + + + + + | Performing | Address | City/State/Zipcode | Phone Number | | Organization | | | | + + + + + | [facility] | [address] | [place] | [phone] | | [facility] | | [address] | | | - LABORATORY | | | | + + + + + LVEF VALUE (11/20/2015) + +-------+ + + + | Component | Value | Ref Range | Performed | Pathologist | | | | | At | Signature | + +-------+ + + + | LVEF-TTE | 60 | | | | | TRANSTHORAC | | | | | | IC ECHO | | | | | + +-------+ + + + LABS - EXTERNAL SCAN (11/19/2015 12:00 AM PDT) + + + | Narrative | Performed At | + + + | Ordered by an | | | unspecified provider. | | + + + ECG - EXTERNAL SCAN (11/19/2015 12:00 AM PDT) + + + | Narrative | Performed At | + + + | Ordered by an | | | unspecified provider. | | + + + documented in this encounter Visit Diagnoses Not on filedocumented in this encounter Administered Medications + +--------+ + +------+------+ | Medication Order | MAR | Action | Dose | Rate | Site | | | Action | Date | | | | + +--------+ + +------+------+ | bivalirudin (ANGIOMAX) 5 mg/ml | Given | 11/23/19 | 71.25 mg | | | | in NS bolus bolus ONCE PRN, | | 16 10:24 | | | | | Starting [facility] 11/23/15 at 1024, | | AM PDT | | | | | Intra-op | | | | | | + +--------+ + +------+------+ +---+---+ | | | +---+---+ + +-------+ +--------+---+---+ | fentaNYL (PF) injection ONCE | Given | 11/23/19 | 50 mcg | | | | PRN, Starting [facility] 11/23/15 at | | 16 10:19 | | | | | 1007, Intra-op | | AM PDT | | | | + +-------+ +--------+---+---+ +-------+ +--------+---+---+ | Given | 11/23/19 | 25 mcg | | | | | 16 10:14 | | | | | | AM PDT | | | | +-------+ +--------+---+---+ | Given | 11/23/19 | 25 mcg | | | | | 16 10:10 | | | | | | AM PDT | | | | +-------+ +--------+---+---+ +---+---+ | | | +---+---+ + +-------+ +--------+---+ + | iodixanol (VISIPAQUE 320) 320 | Given | 11/23/19 | 25 mLs | | Other | | mg/mL injection ONCE PRN, | | 16 10:35 | | | (Comment | | Starting [facility] 11/23/15 at 1035, | | AM PDT | | | ) | | Intra-op | | | | | | + +-------+ +--------+---+ + +---+---+ | | | +---+---+ + +-------+ +--------+---+---+ | lidocaine 1% injection ONCE | Given | 11/23/19 | 10 mLs | | | | PRN, Starting [facility] 11/23/15 at | | 16 10:12 | | | | | 1012, Intra-op | | AM PDT | | | | + +-------+ +--------+---+---+ +---+---+ | | | +---+---+ + +-------+ +------+---+---+ | midazolam (VERSED) 1 mg/mL | Given | 11/23/19 | 2 mg | | | | injection ONCE PRN, Starting [facility] | | 16 10:19 | | | | | 11/23/15 at 1007, Intra-op | | AM PDT | | | | + +-------+ +------+---+---+ +-------+ +--------+---+---+ | Given | 11/23/19 | 0.5 mg | | | | | 16 10:14 | | | | | | AM PDT | | | | +-------+ +--------+---+---+ | Given | 11/23/19 | 0.5 mg | | | | | 16 10:10 | | | | | | AM PDT | | | | +-------+ +--------+---+---+ +---+---+ | | | +---+---+ + +-------+ +---------+---+---+ | nitroglycerin 100 mcg/mL | Given | 11/23/19 | 100 mcg | | | | syringe ONCE PRN, Starting [facility] | | 16 10:25 | | | | | 11/23/15 at 1025, Intra-op | | AM PDT | | | | + +-------+ +---------+---+---+ +---+---+ | | | +---+---+ documented in this encounter
--- OUTSIDE RECORDS SUMMARY | ~2019-11-29 | XMS | Encounter Summary ---
Demographics + + + | Address | [address] | | | [place] [address] | + + + | Home Phone | | + + + | Preferred Language | Unknown | + + + | Marital Status | | + + + | Yazdanism Affiliation | Unknown | + + + | Race | Unknown | + + + | Ethnic Group | Unknown | + + + Author + + + | Author | [facility] | | | and [place] | + + + | Organization | [facility] | | | [...] Team Providers + +------+ + | Care Cider Maker Name | Role | Phone | + [...] + + | Closed | Specialty | Cardiac | Diagnoses | Padma, | [facility] | | | Services | Rehabilitatio | Acute | MD Maryann | | | | Required | n | coronary | [address] | Rehabilitatio | | | | | syndrome | [address] | [address] | | | | | ([facility]) Post | [place], | [address] [place] | | | | | PTCA | [place] [address] | [place], [place] | | | | | | Phone: | [address] | | | | | | [phone] | Phone: | | | | | | Fax: | [phone] | | | | | | [phone] | Fax: | | | | | | | [phone] | +--------+ + + + + + Reason for Visit + + + | Reason | Comments | + + + | New Patient | | + + + | Chest Pain | | + + + Evaluate & Treat (Routine) +--------+--------+ + + + + | Status | Reason | Specialty | Diagnoses / | Referred By | Referred To | | | | | Procedures | Contact | Contact | +--------+--------+ + + + + | Closed | | Cardiology | Diagnoses | Kaiden, | Padma, | | | | | CAD | Kyle Dobbs, | MD Maryann | | | | | (coronary | DO [address] | | | | | artery | [address] | [address] | | | | | disease) | [place], | [place], | | | | | NSTEMI | [place] | [place] [address] | | | | | (non-ST | [address] | Phone: | | | | | elevated | Phone: | [phone] | | | | | myocardial | [phone] | Fax: | | | | | infarction) | Fax: | [phone] | | | | | (HCC) | [phone] | | | | | | Hospital | | | | | | | discharge | | | | | | | follow-up | | | | | | | Procedures | | | | | | | MARKETING FINANCE MANAGER IN | | | | | | | CLINIC>CONSU | | | | | | | LTED BY | | | | | | | [facility] | | | | | | | [facility] | | | +--------+--------+ + + + + Encounter Details +--------+---------+ + + + | Date | Type | Department | Care Team | Description | +--------+---------+ + + + | 12/06/ | Office | [facility] | Maryann Rouse, | Chest pain, | | 2016 | Visit | CARDIOLOGY [address] | unspecified type | | | | [address] [place], | [place], | (Primary Dx); Acute | | | | [place] [address] | [place] [address] | coronary syndrome | | | | [phone] | [phone] | ([facility]); Post [facility] | | | | | | | [...] + + + | Blood Pressure | 110/80 | 12/07/2015 3:11 PM | R | | | | PDT | | + + + + + | Pulse | 75 | 12/07/2015 3:06 PM | | | | | PDT | | + + + + + | Temperature | - | - | | + + + + + | Respiratory Rate | 16 | 12/07/2015 3:06 PM | | | | | PDT | | + + + + + | Oxygen Saturation | - | - | | + + + + + | Inhaled Oxygen | - | - | | | Concentration | | | | + + + + + | Weight | 94.3 kg (208 lb) | 12/07/2015 3:06 PM | | | | | PDT | | + + + + + | Height | 157.5 cm (5' 2.01") | 12/07/2015 3:06 PM | | | | | PDT | | + + + + + | Body Mass Index | 38.03 | 12/07/2015 3:06 PM | | | | | PDT | | + + + + + documented in this encounter Patient Instructions Patient Instructions Evangelina Rendon RN - 12/07/2015 3:45 PM PDT1. Nitro 0.4mg - Take on e tablet under tongue as needed for chest pain, may repeat every 5 minutes up to 3 doses. I f no relief after 3rd dose, call 911. 2. Cardiac Rehab - order has been sent, someone from Cardiac Rehab will call you to arrange an appointment 3. Sleep consult/sleep study - order has been sent, someone from the Sleep center will call you to arrange an appointment 4. Follow up appointment: 6 weeks Provider: Maryann Rouse MD Date: Check-In Time: documented in this encounter Progress Notes Maryann Rouse MD - 12/07/2015 3:10 PM PDTFormatting of this note might be different f rom the original. PATIENT NAME: Jessie Casarez : 1965: AGE: 50 y.o. REFERRED BY: Kyle Richey PRIMARY CARE: DO ERIC Martinez PATIENT OFFICE VISIT Date of Service: 12/07/15 HISTORY OF PRESENT ILLNESS: Jessie Casarez is a 50 y.o. female with a history of coronary artery disease post non-STEM I post PTCA and stent of RCA by Dr. Bell on 11/23/15, type II diabetes, hypertension, hyperl ipidemia, obesity, stage III chronic kidney disease, noncompliant, suspecting obstructive sl eep apnea . She is being seen today for follow up CAD. Patient was in her just received health until 11/20/15 she was admitted to [place] with a cute non-STEMI. Left heart cath on 11/21/15 showed a blockage in the mid RCA. Because of he r kidney failure, intervention was delayed until 11/23/15 when she got PTCA and stents of the mid RCA. Today, patient is feeling better from cardiac standpoint. 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 She does some more walking and has been eating more health ier choices of meal. She lost 6 pounds of weight in the past 2 weeks. She has residual nathaniel rtness of breath when she walks. There is no chest pain or chest discomfort both at rest an d on exertion. There is no palpitation dizziness or lightheadedness. There is no ankle or leg swelling. Patient can sleep on one pillow at night without difficulty breathing. CURRENT PROBLEMS Patient Active Problem List Diagnosis [...] sleep apnea Microcytic anemia Leukocytosis, unspecified type MEDICAL, SURGICAL, AND PERSONAL HISTORY Past Surgical History Procedure Laterality Date Coronary angioplasty with stent placement 11/2012 Left Circumflex BMS x 1 at [facility] Cholecystectomy Salpingectomy Left 1990s for ectopic Thoracentesis 11/09/2011, 12/09/2011, 01/2012 Tonsillectomy childhood Colonoscopy 09/04/2015 Cardiac catherization N/A 11/21/2015 Procedure: CV LHC; Surgeon: Maryann Rouse MD; Location: [facility] CV LAB Cardiac catherization N/A 11/23/2015 Procedure: CV Cor Angio; Surgeon: Irvin Bell MD; Location: [facility] CV LAB Family History Problem Relation Age of Onset Diabetes Mother Diabetes Father Heart attack Father Diabetes Sister Arthritis Sister Family Status Relation Status Age Mother Alive Father 59 heart attack Sister Alive Brother Alive History Social History Marital Status: Spouse Name: N/A Number of Children: N/A Years of Education: N/A 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 [employer] Social History Main Topics Smoking status: Former Smoker Types: Cigarettes Quit date: 06/11/2012 Smokeless tobacco: Never Used Alcohol Use: No Drug Use: No Sexual Activity: Not on file Other Topics Concern None Social History Narrative Merged History Encounter Lives: in [place] With: Grew up: [place], [place], [place], [place], [place], [place] Has previously lived in: the [place] and [place] Exposure to toxic chemicals: no Exposure to asbestos: no Exposure to tuberculosis: presumably yes Has had a PPD or Quantiferon be fore: yes Has pets at home: no Has ever owned birds: no Other animal exposures: no Hobbies: watching the TV CURRENT MEDICATIONS Current Outpatient Prescriptions Medication Sig [...] 2 times daily. 60 t ablet 0 prasugrel (EFFIENT) 10 mg TABS Take 1 tablet by mouth Daily. 30 tablet 0 tiotropium (SPIRIVA) 18 mcg inhalation capsule Inhale 1 capsule into the lungs Daily. 9 0 capsule 3 No current facility-administered medications for this visit. ALLERGIES No Known Allergies ROS Review of Systems Constitutional: Positive for fever and weight loss. Negative for chills and malaise/fatigue . HENT: Negative for hearing loss, nosebleeds and tinnitus. Eyes: Positive for blurred vision. Negative for double vision. Respiratory: Positive for shortness of breath. Cardiovascular: Positive for chest pain. Negative for palpitations, claudication and leg sw elling. Gastrointestinal: Positive for constipation. Negative for nausea, vomiting, abdominal pain and diarrhea. Genitourinary: Negative for dysuria, urgency, frequency, hematuria and flank pain. Musculoskeletal: Positive for back pain and joint pain. Negative for myalgias, falls and ne ck pain. Skin: Negative for itching and rash. Neurological: Positive for weakness. Negative for dizziness, tingling, tremors, speech rogers ge, seizures and headaches. Endo/Heme/Allergies: Does not bruise/bleed easily. Psychiatric/Behavioral: Negative for memory loss. The patient is not nervous/anxious and do es not have insomnia. OBJECTIVE: PHYSICAL EXAM BP 110/80 mmHg | Pulse 75 | Resp 16 | Ht 1.575 m (5' 2.01") | Wt 94.348 kg (208 lb) | BMI 3 8.03 kg/m2 Physical Exam Constitutional: She appears well-developed and well-nourished. No distress. Female individual without acute distress, accompanied by her . Neck: Normal carotid pulses, no hepatojugular reflux [...] does not e xhibit a depressed mood. LAB RESULTS: LIPID Lab Results Component Value Date CHOL 257* 11/20/2015 TRIG 304* 11/20/2015 HDL 50 11/20/2015 LDL 146* 11/20/2015 CHOLHDL 5.1 11/20/2015 CHEMISTRY Lab Results Component Value Date GLU 145* 11/24/2015 GLUEX 177* 09/08/2014 NA 138 11/24/2015 NAEX 137 09/08/2014 K 4.0 11/24/2015 KEX 3.9 09/08/2014 CL 109 11/24/2015 CLEX 108* 09/08/2014 CO2 21* 11/24/2015 CO2EX 22 09/08/2014 CALCIUM 7.8* 11/24/2015 ALKPHOS 69 11/20/2015 AST 46* 11/20/2015 ASTEX 22 09/08/2014 ALT 40 11/20/2015 ALTEX 20 09/08/2014 BILITOT 0.6 11/20/2015 CREA 1.65* 11/24/2015 BUN 15 11/24/2015 EGFREX 29* 09/08/2014 CREEX 1.8* 09/08/2014 HEMATOLOGY Lab Results Component Value Date WBC 14.6* 11/24/2015 WBCEX 13.3* 09/08/2014 HGB 7.7* 11/24/2015 HGBEX 10.3* 09/08/2014 HCT 26.7* 11/24/2015 HCTEX 34* 09/08/2014 PLT 258 11/24/2015 PLTEX 291 09/08/2014 I reviewed records from Molina Owens M.D. for discharge summary on 11/24/15. [facility] 11/23/15 shows severe right coronary artery disease successful stenting of the right cor onary artery. Above data and testing is reviewed this visit; testing below is historical data unless othe rwise specified. ASSESSMENT: 1. Coronary artery disease/non-STEMI A. Post non-STEMI. Left heart cath on 11/21/12 showed 95% stenosis of the LCx, 20-30% stenosis of the proximal RCA. Status post PTCA and stentsx2 of the LCx .Since that time, she saw a checker product design for couple times and loss of follow-up. B. Echocardiogram on 11/20/15 showed Mild biatrial dilatation. Marai l left ventricular size, wall thickness and motion. Preserved left ventricular systolic func tion. LVEF is 60%. Normal valvular structure. Normal right-sided pressure. Normal IVC with n ormal respiratory collapse. C. She started having a chest pain on 11/17/15 while she was working at the [employer]. She described it as a chest pressure 7/10 that radiated across the chest wa ll and was associated some shortness of breath. No palpitation, dizziness or lightheadedne ss. No sweating. She waited until 11/19/15 when she had recurrent bad chest pain that too k her to the ED of [facility] in [place]. She was found to have blood sugar of almost 1000 and troponin of 0.5. She was transferred to [facility]. D. Left heart cath on 11/21/15 showed [...] on 11/23/15 . G. Today, patient is feeling better from cardiac standpoint. 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 She does some more walking and has been eating more he althier choices of meal. She lost 6 pounds of weight in the past 2 weeks. She has residual shortness of breath when she walks. There is no chest pain or chest discomfort both at res t and on exertion. There is no signs and symptoms of overt congestive heart failure. She is in a class II of [place] [employer] functional class. There is no fluid re tention on physical examination. She is on a combination of aspirin, Lovenox, metoprolol , lisinopri l, Effient and atorvastatin. 2. Hypertension A. Blood pressure iswithin target.. 3. Type II diabetes/noncompliant with medication A. [...] on ce weekly by Dr. Castillo in [place]. 5. Acute kidney injury on top of the stage III chronic kidney disease A. She also seen a classification and treatment director at [facility] but recently los t follow-up. B. EGFR is 33. 6. Obesity A. She has been walking and eating better. She lost 6 pounds of w eight in the past 2 weeks. 7. Inactivity 8. Noncompliance. A. This is getting better. Time will tell whether long-term compl iance. 9. Hyperlipidemia A. She is now on Lipitor. 10. Suspecting obstructive sleep apnea A. Patient has 4/8 on stop bag questionnaire. PLAN: 1. She is a candidate for a phase II cardiac rehab program at [facility]. 2. She candidate for sleep study. 3. Prescribed nitroglycerin 0.4 mg sublingually when necessary for pain. 4. I recommend a therapeutic lifestyle change including walking 30 minutes a day, choosing healthy choices of diet , including DASH diet and weight reduction. 5. Follow-up in 6-8 weeks. Repeat BMP/kidney function prior to return. Electronically signed by: Maryann Rouse MD [facility] 12/07/2015 Portions of this chart may have been created with [employer] voice recognition software. Occasi onal wrong-word or sound-alike substitutions may have occurred due to the inherent mary itations of voice recognition software. Please read the chart carefully and recognize, using context, where these substitutions have occurred. documented in this encounter Miscellaneous Notes Addendum Note - Evangelina Rendon RN - 12/07/2015 4:07 PM PDT Addended by: EVANGELINA RENDON on: 12/07/2015 16:07 Modules accepted: Orders documented in this encounter Plan of Treatment + + +--------+ + + | Name | Type | Priori | Associated Diagnoses | Order Schedule | | | | ty | | | + + +--------+ + + | Referral to Cardiac | Outpatient | Routin | Acute coronary | 1 Occurrences | | Rehab | Referral | e | syndrome (HCC) Post | starting 12/07/2015 | | | | | [facility] | until 12/06/2016 | + + +--------+ + + documented as of this encounter Procedures + +--------+ + + + | Procedure Name | Priori | Date/Time | Associated Diagnosis | Comments | | | ty | | | | + +--------+ + + + | ECG 12 LEAD | Routin | 12/07/2015 | Chest pain, | Results for this | | | e | 3:10 PM | unspecified type | procedure are in the | | | | PDT | | results section. | + +--------+ + + + documented in this encounter Results ECG 12 lead (12/07/2015 3:10 PM PDT) + + + + + + | Component | Value | Ref Range | Performed | Pathologist | | | | | At | Signature | + + + + + + | VENTRICULAR | 75 | BPM | [facility] | | | RATE EKG | | | | | + + + + + + | ATRIAL RATE | 75 | BPM | [facility] | | + + + + + + | P-R | 134 | ms | [facility] | | | INTERVAL | | | | | + + + + + + | QRS | 84 | ms | [facility] | | | DURATION | | | | | + + + + + + | Q-T | 382 | ms | [facility] | | | INTERVAL | | | | | + + + + + + | Q-T | 426 | ms | [facility] | | | INTERVAL | | | | | | (CORRECTED) | | | | | + + + + + + | P WAVE AXIS | 29 | degrees | [facility] | | + + + + + + | QRS AXIS | -24 | degrees | [facility] | | + + + + + + | T AXIS | 93 | degrees | [facility] | | + + + + + + | INTERPRETAT | Normal sinus rhythmT | | [facility] | | | ION TEXT | wave abnormality, | | | | | | consider lateral | | | | | | ischemiaAbnormal ECGWhen | | | | | | compared with ECG of | | | | | | 21-NOV-2015 05:28,No | | | | | | significant change was | | | | | | foundConfirmed by | | | | | | PADMA PERALES, MARYANN | | | | | | ([id number]) on 12/07/2015 | | | | | | 4:48:02 PM | | | | + + [...] + | Diagnosis | + + | Chest pain, unspecified type - Primary | + + | Acute coronary syndrome (HCC) Intermediate coronary syndrome | + + | Post PTCA Postsurgical percutaneous transluminal coronary angioplasty status | + + documented in this encounter
--- OUTSIDE RECORDS SUMMARY | ~2019-11-29 | XMS | Encounter Summary ---
Demographics + + + | Address | [address] | | | [place] [address] | + + + | Home Phone | | + + + | Preferred Language | Unknown | + + + | Marital Status | | + + + | Baptism Affiliation | Unknown | + + + | Race | Unknown | + + + | Ethnic Group | Unknown | + + + Author + + + | Author | [facility] | | | and [place] | + + + | Organization | [facility] | | | and [...] Team Providers + +------+ + | Care Transformer Molder Name | Role | Phone | + [...] | infection | Lorenzo III, | [address] | | | | | after | [address] | | | | | surgery | [address] | [place] | | | | | | [address] | [address] | | | | | | [place], [place] | Phone: | | | | | | [address] | [phone] | | | | | | Phone: | Fax: | | | | | | [phone] | [phone] | | | | | | Fax: | | | | | | | [phone] | | +--------+ + + + + + Reason for Visit +---------+--------+ + | Reason | Onset | Comments | | | Date | | +---------+--------+ + | Results | 01/06/ | | | | 2018 | | +---------+--------+ + Encounter Details +--------+ + + + + | Date | Type | Department | Care Team | Description | +--------+ + + + + | 01/06/ | Telephone | [facility] | Robin Ceron | Results | | 2019 | | ASSOCIATED | Lorenzo RIVERA MD [address] | | | | | [facility] | [address] | | | | | [address] | [place] [address] | | | | | [address] [place], | [phone] | | | | | [place] [address] | | | | | | [phone] | | | +--------+ + + + [...] this encounter Miscellaneous Notes Telephone Encounter - Adriana Porras RN - 01/08/2019 9:22 AM PDTCalled pt back and advised her that referral had been placed to general surgery in [place], and will send this to Dr Kayla Jarrell. They should be contacting her w/ information about appt. States understanding and is agreeable. elephone Encounter - Adriana Porras RN - 01/08/2019 9:08 AM PDTPt called directly. Says she was exp ecting a call back yesterday regarding a someone who would take over her wound care. Told h er would try to figure out who was going to be taking over her care. Told her would try and figure this out, and will have some one call her. Per chart, Dr. Ceron, has placed a re ferral to general surgery. Last note indicates pt wants to have this done in [place], and had listed a couple of surgeons to try. Message also sent to referrals person. Electronical ly signed by Adriana oPrras RN at 01/08/2019 9:13 AM PDTAddendum Note - Robin Ceron III, MD - 01/07/2019 10:23 AM PDT Addended by: ROBIN CERON on: 01/07/2019 10:23 Modules accepted: Orders eleph one Encounter - Elaine Frazier RN - 01/07/2019 10:04 AM PDTPatient called live. Verified nam e and . She advised that she called the phone number provided and they advised her that t his is something they are unable to do for her and she needs to see her original surgeon. Ad vised patient that I would call the wound care clinic back to clarify. Advised patient that if the wound care clinic is unable to care for her wound than she may have to be referred to the [facility]. Agreeable. No further questions. Placed call to [facility] at [phone] and caroline nguyen with [facility]. She advised that they do not have a senior telecommunications specialist physician. The y have nurses who take orders from the patient's PCP or the surgeon for caring for a wound. She advised that the surgeon may need to refer the patient out to a general surgeon for cons ultation to further evaluate the patient's wound. She recommended two general surgeons in [facility]. Dr Irvin Maldonado: [phone] Kasi Bro: [phone]. Forwarding i nformation to Dr Ceron for review. Electronically signed by Elaine Frazier RN at 10:09 AM PDTTelephone Encounter - Elaine Frazier RN - 01/07/2019 9:32 AM PDTPlaced call [facility] to get more information about their wound care abilities. The Day Surgery Department advised that they have a Wound Care Clinic that could evaluate the patie nt's wound and advise care from their. They provided their direct phone number to provide to the patient to call to schedule of [phone]. She advised that because the patient was s een their previously for the wound vac care, she should not need a referral. Forwarding to Rinku Ceron as an FYI. Returned call to patient to advise of Wound Care Clinic information. Patient was agreeable. No further questions/ elephone Encounter - Asia Kwan RN - 01/07/2019 9:27 AM PDTPt called live, verified identity with 2 identifiers. She is wondering if we have any additional information on a plan moving forward. Per Elaine PIERCE, Dr. Ceron would like her to be referred out to wound care, preferably in [facility] as that's where the patient is located. Patient advised of this, she is clau howell. Advised her that we will give her a call with additional information. elephone Encounter - Elaine Frazier RN - 01/06/2019 3:29 PM PDTPlaced call to patient to advise of recommenda tions per provider. Verified name and . Advised patient of recommendations. The patient s tates that she is off work only this week and would like to be scheduled to be seen this ada brambila Advised patient that we do not have anything available. Advised patient that I would furt her consult with the providers and call her back. Patient was agreeable. No further question s. elephone Encounter - Elaine Frazier RN - 01/06/2019 3:29 PM PDTLocated US results. Consulted results with Dr Anatoliy virk. The reports states that the patient has focal edema and a pocket of thick fluid measuri ng 34 x 30 x 25 mm and another fluid collection along the abdominal wall musculature measuri ng 13 cm long, 0.4 cm thick, [address] Odell advised that if the patient is not having any symptoms of infection then we may just watch the fluid. It may reabsorb or she may opt t o have it drained periodically. The patient should be scheduled for a follow up in our offic e with an MD. If the patient is suffering from increased pain, redness, or fever, she should be seen in the emergency department. elephone Encounter - Elaine Frazier RN - 01/06/2019 2:16 PM PDTPatient left shira sanchez for call back. Returned call to patient. Verified name and . The patient states th at she was seen in our office by Dr Ceron on 12/16/18 and was advised to have an US done. T he patient had this done today in [place] and she is asking about the results. Advised pat liya that we would call her when we have received the results and they have been reviewed by a provider. Patient was agreeable. No further questions. documented in this enco unter Plan of Treatment + + +--------+ + + | Name | Type | Priori | Associated Diagnoses | Order Schedule | | | | ty | | | + + +--------+ + + | AMB Referral to | Outpatient | Routin | Wound infection | Ordered: 01/07/2019 | | General Surgery | Referral | e | after surgery | | + + +--------+ + + documented as of this encounter Visit Diagnoses + + | Diagnosis | + + | Wound infection after surgery Other postoperative infection | + + documented in this encounter"
--- OUTSIDE RECORDS SUMMARY | ~2019-11-29 | XMS | Encounter Summary ---
Demographics + + + | Address | [address] | | | [place] [address] | + + + | Home Phone | | + + + | Preferred Language | Unknown | + + + | Marital Status | | + + + | Restorationist Affiliation | Unknown | + + + | Race | Unknown | + + + | Ethnic Group | Unknown | + + + Author + + + | Author | [facility] | | | and [place] | + + + | Organization | [facility] | | | [...] Team Providers + +------+ + | Care Forge Hand Name | Role | Phone | + +------+ + PCP | Unavailable | + +------+ + Encounter Details +--------+ + + + + | Date | Type | Department | Care Team | Description | +--------+ + + + + | 08/07/ | Hospital | [facility] | Jone Foster, | RHEUMATOID ARTHRITIS | | 2001 | Encounter | CONVERSION [address] | [address] | ([facility]) | | | | [address] | [address] [place], [place] | | | | | [place], [place] | [address] | | | | | [address] | | | | | | [phone] | | | +--------+ + + + [...] + | Diagnosis | + + | Rheumatoid arthritis(714.0) Rheumatoid arthritis | + + documented in this encounter"
--- OUTSIDE RECORDS SUMMARY | ~2019-11-29 | XMS | Encounter Summary ---
Demographics + + + | Address | [address] | | | [place] [address] | + + + | Home Phone | | + + + | Preferred Language | Unknown | + + + | Marital Status | | + + + | Jew Affiliation | Unknown | + + + | Race | Unknown | + + + | Ethnic Group | Unknown | + + + Author + + + | Author | [facility] | | | and [place] | + + + | Organization | [facility] | | | [...] Team Providers + +------+ + | Care Bookmaker'S Clerk Name | Role | Phone | + +------+ + | Kyle Richey DO | PCP | | + +------+ + Encounter Details +--------+ + + + + | Date | Type | Department | Care Team | Description | +--------+ + + + + | 08/25/ | Abstract | [facility] [place] | [address], | | | 2018 | | PULMONARY [address] | [address] | | | | | [address] [place], | [place] [address] | | | | | [place] [address] | [phone] | | | | | [phone] | | | +--------+ + + + [...]
--- OUTSIDE RECORDS SUMMARY | ~2019-11-29 | XMS | Encounter Summary ---
Demographics + + + | Address | [address] | | | [place] [address] | + + + | Home Phone | | + + + | Preferred Language | Unknown | + + + | Marital Status | | + + + | Jehovah'S Witness Affiliation | Unknown | + + + | Race | Unknown | + + + | Ethnic Group | Unknown | + + + Author + + + | Author | [facility] | | | and [place] | + + + | Organization | [facility] | | | [...] Team Providers + +------+ + | Care Clinical Assessment Manager Name | Role | Phone | + +------+ + | Kyle Richey DO | PCP | | + +------+ + Encounter Details +--------+ + + + + | Date | Type | Department | Care Team | Description | +--------+ + + + + | 07/03/ | Abstract | [facility] [place] | Riaz [facility] | | | 2016 | | NEPHROLOGY [address] | [address] | | | | | [address] | [address] [place] | | | | | [place], [place] | [place] [address] | | | | | [address] | [phone] | | | | | [phone] | | | +--------+ + + + [...] + documented as of this encounter Progress Ирина Foy - 07/03/2016 9:19 AM PSTOutside record: Scott caldera, dos: 07/02/16. Sent to scan. documented in this encounter Plan of Treatment Not on filedocumented as of this encounter Visit Diagnoses Not on filedocumented in this encounter"
--- OUTSIDE RECORDS SUMMARY | ~2019-11-29 | XMS | Encounter Summary ---
Demographics + + + | Address | [address] | | | [place] [address] | + + + | Home Phone | | + + + | Preferred Language | Unknown | + + + | Marital Status | | + + + | Religion Affiliation | Unknown | + + + [...] Team Providers + +------+ + | Care Brim Stretching Machine Operator Name | Role | Phone | + +------+ + | Kyle Richey DO | PCP | | + +------+ + Encounter Details +--------+ + + + + | Date | Type | Department | Care Team | Description | +--------+ + + + + | 11/04/ | Abstract | [facility] [place] | Riaz [facility] | | | 2016 | | NEPHROLOGY [address] | [address] | | | | | [address] | [address] [place] | | | | | [place], [place] | [place] [address] | | | | | [address] | [phone] | | | | | [phone] | | | +--------+ + + + [...] | + +--------+ + + + | PROTEIN | Routin | 10/28/2016 | | Results for this | | ELECTROPHORESIS, | e | | | procedure are in the | | SERUM | | | | results section. | + +--------+ + + + documented in this encounter Results Protein Electrophoresis, Serum (10/28/2016) + + + + + + | Component | Value | Ref Range | Performed | Pathologist | | | | | At | Signature | + + + + + + | ALPHA 1 | NormalComment: 0.17 | | | | | GLOBULIN | | | | | + + + + + + | ALPHA 2 | NormalComment: 0.79 | | | | | GLOBULIN | | | | | + + + + + + | Beta-1 % | 0.82Comment: 0.82 | 0.6 - 1.09 | | | + + + + + + | GAMMA | NormalComment: 1.12 | | | | | GLOBULIN | | | | | + + + + + + + + | Specimen | + + | Blood | + + documented in this encounter Visit Diagnoses Not on filedocumented in this encounter"
--- OUTSIDE RECORDS SUMMARY | ~2019-11-29 | XMS | Encounter Summary ---
Demographics + + + | Address | [address] | | | [place] [address] | + + + | Home Phone | | + + + | Preferred Language | Unknown | + + + | Marital Status | | + + + | Restoration Affiliation | Unknown | + + + | Race | Unknown | + + + | Ethnic Group | Unknown | + + + Author + + + | Author | [facility] | | | and [place] | + + + | Organization | [facility] | | | and [...] Team Providers + +------+ + | Care Tumbler Machine Operator Name | Role | Phone [...] Description | +--------+---------+ + + + | 11/20/ | Surgery | [facility] | Marissa Rouse, | CV LHC | | 2015 | | MED CTR CV INTRA OP | MD [address] | | | | | [address] | [place], | | | | | [place], [place] | [place] [address] | | | | | [address] | [phone] | | | | | [phone] | | | +--------+---------+ + + + [...] + + + | Blood Pressure | 113/100 | 11/21/2015 2:00 PM | | | | | PDT | | + + + + + | Pulse | 79 | 11/21/2015 2:00 PM | | | | | PDT | | + + + + + | Temperature | 36.8 C (98.2 F) | 11/21/2015 1:43 PM | | | | | PDT | | + + + + + | Respiratory Rate | 15 | 11/21/2015 12:18 PM | | | | | PDT | | + + + + + | Oxygen Saturation | 97% | 11/21/2015 2:00 PM | | | | | PDT | | + + + + + | Inhaled Oxygen | - | - | | | Concentration | | | | + + + + + | Weight | 97.4 kg (214 lb 11.7 | 11/21/2015 4:35 AM | | | | oz) | PDT [...] been uncontrolled, RA, who was sent from [facility] with chest pain, hyperglycemia and elevated troponins [...] load in the setting of acute on revenue tax specialist miles renal failure. Her renal function remained [...] week. Specialty: Family Medicine Contact information: [address] [facility] [phone] Follow up with Marissa Rouse MD In 2 weeks. Specialty: Cardiology Contact information: [address] [facility] [place] [id number] Discharge Medications New Medications Details atorvaSTATin 20 [...] signed by: Molina Owens MD, 11/24/2015 10:36 [facility] documented in this encounter Discharge Instructions Instructions Leslie Carrion, Corporate Scheduler-Clinical - 11/24/2015Please arrive at 3:30 pm, 1/2 [...] | 0 | 07/20/19 | | | (PRINIVIL, ZESTRIL) | LONGER TAKING THIS | | [...] + documented as of this encounter Progress Notes Marissa Rouse MD - 11/24/2015 7:16 AM PDTFormatting of [...] LCx .Since that time, she saw a solids control technician for couple times and loss of follow-up. B. Echocardiogram on 11/20/15 showed Mild biatrial dilatation. Maria l left ventricular size, wall thickness and motion. Preserved left ventricular systolic function. LVEF is 60%. Normal valvular structure. Normal right-sided p ressure. Normal IVC with normal respiratory collapse. C. She started having a chest pain on 11/17/15 while she was working at the [employer] She described it as a chest pressure 7/10 that radiated across the chest wa ll and was associated some shortness of breath. No palpitation, dizziness or lightheadedne ss. No sweating. She waited until 11/19/15 when she had recurrent bad chest pain that too k her to the ED of [facility] in [place]. She was found to have blood sugar of almost 1000 and troponin of 0.5. She was transferred to [facility]. D. Left heart cath on [...] She is in a class II of [place] Heart [employer] functional class. There is no [...] on ce weekly by Dr. Castillo in [place]. 5. Acute kidney injury on top of the stage III chronic kidney disease A. She also seen a architectural drafter at [facility] but recently los t follow-up. B. EGFR is 33. 6. Obesity A. She has a poor lifestyle. 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 She does not watch what sh e eats. 7. Inactivity 8. Noncompliance. A. [...] made to ensure accuracy; however, inadvertent computerized systems integration manager errors may be pre sent. Electronically signed by: Marissa Rouse MD 11/24/2015 7:16 Marissa Araya MD - 11/23/2015 1:25 PM PDTF ormatting of this note might be different from the original. PATIENT NAME: Jessie Casarez : 1965: AGE: 50 y.o. ADMISSION DATE: 11/20/2015 HOSPITAL DAY NUMBER: [id number] PRIMARY CARE: Kyle Richey DO CONSULTING PROVIDER: Marsisa Rouse MD CARDIOLOGY PROGRESS NOTE DATE OF [...] Clear Clear PH UA 6.0 5.0-8.0 Specific Mercer 1.006 1.001-1.030 PROTEIN UA 30 mg/dL (A) [...] LCx .Since that time, she saw a solids control technician for couple times and loss of follow-up. B. Echocardiogram on 11/20/15 showed Mild biatrial dilatation. Maria l left ventricular size, wall thickness and motion. Preserved left ventricular systolic function. LVEF is 60%. Normal valvular structure. Normal right-sided p ressure. Normal IVC with normal respiratory collapse. C. She started having a chest pain on 11/17/15 while she was working at the [employer] She described it as a chest pressure 11/18 that radiated across the chest wa ll and was associated some shortness of breath. No palpitation, dizziness or lightheadedne ss. No sweating. She waited until 11/19/15 when she had recurrent bad chest pain that too k her to the ED of [facility] in [place]. She was found to have blood sugar of almost 1000 and troponin of 0.5. She was transferred to [facility]. D. Left heart cath on [...] She is in a class II of [place] Heart Association functional class. There is no [...] on ce weekly by Dr. Castillo in [place]. 5. Acute kidney injury on top of the stage III chronic kidney disease A. She also seen a architectural drafter at [facility] but recently los t follow-up. B. EGFR is 32. 6. Obesity A. She has a poor lifestyle. 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 She [...] made to ensure accuracy; however, inadvertent computerized systems integration manager errors may be pre sent. Electronically signed by: Marissa Rouse MD 11/23/2015 13:25 Molina Medina MD - 11/23/2015 11:44 AM PD T [facility] Progress Note Jessie Casarez is [...] Clear Clear PH UA 6.0 5.0-8.0 Specific [place]cer 1.006 1.001-1.030 PROTEIN UA 30 mg/dL (A) [...] as outlined above. Molina Owens 11/23/2015 11:44 [facility] Portions of this chart may have been created with [employer] voice recognition software. Occasi onal wrong-word or sound-alike substitutions may have occurred due to the inherent mary itations of voice recognition software. Please read the chart carefully and recognize, using context, where these substitutions have occurred itMolina finney MD - 11/22/2015 2:38 PM PDT [facility] Progress Note Jessie Casarez is [...] as outlined above. Molina Owens 11/22/2015 14:38 [facility] Portions of this chart may have been created with [employer] voice recognition software. Occasi onal wrong-word or sound-alike substitutions may have occurred due to the inherent mary itations of voice recognition software. Please read the chart carefully and recognize, using context, where these substitutions have occurred Marissa Araya MD - 11/22/2015 7:25 AM PDT PATIENT NAME: [...] LCx .Since that time, she saw a solids control technician for couple times and loss of follow-up. B. Echocardiogram on 11/20/15 showed Mild biatrial dilatation. Maria l left ventricular size, wall thickness and motion. Preserved left ventricular systolic function. LVEF is 60%. Normal valvular structure. Normal right-sided p ressure. Normal IVC with normal respiratory collapse. C. She started having a chest pain on 11/17/15 while she was working at the [employer] She described it as a chest pressure 11/18 that radiated across the chest wa ll and was associated some shortness of breath. No palpitation, dizziness or lightheadedne ss. No sweating. She waited until 11/19/15 when she had recurrent bad chest pain that too k her to the ED of [facility] in [place]. She was found to have blood sugar of almost 1000 and troponin of 0.5. She was transferred to [facility]. D. Left heart cath on [...] She is in a class II of [place] Heart Association functional class. There is no [...] on ce weekly by Dr. Castillo in [place]. 5. Acute kidney injury on top of the stage III chronic kidney disease A. She also seen a architectural drafter at [facility] but recently los t follow-up. B. EGFR is 32. 6. Obesity A. She has a poor lifestyle. 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 She does not watch what sh e eats. 7. Inactivity 8. Noncompliance. A. [...] made to ensure accuracy; however, inadvertent computerized systems integration manager errors may be pre sent. Electronically signed by: Marissa Rouse MD 11/22/2015 7:25 itMolina finney MD - 11/21/2015 12:28 PM PDT [facility] Progress Note Jessie Casarez is [...] was found Confirmed by GEE PERALES, ALVA ([id number]) on 11/21/2015 7:06:43 AM Troponin I Result [...] as outlined above. Molina Owens 11/21/2015 12:28 [facility] Portions of this chart may have been created with [employer] voice recognition software. Occasi onal wrong-word or [...] LCx .Since that time, she saw a solids control technician for couple times and loss of follow-up. B. Echocardiogram on 11/20/15 showed Mild biatrial dilatation. Maria l left ventricular size, wall thickness and motion. Preserved left ventricular systolic function. LVEF is 60%. Normal valvular structure. Normal right-sided p ressure. Normal IVC with normal respiratory collapse. C. She started having a chest pain on 11/17/15 while she was working at the [employer] She de scribed it as a chest pressure 7/10 that radiated across the chest wall and was associated s ome shortness of breath. No palpitation, dizziness or lightheadedness. No sweating. Sh e waited until 11/19/15 when she had recurrent bad chest pain that took her to the ED of [facility] in [place]. She was found to have blood sugar of almost 1000 and tropon in of 0.5. She was transferred to [facility]. D. Patient had chest pain/chest pressure 5/10 this morning around 5:00 that was relieved by one tablet on nitroglycerin. She is now chest pain free and breathing normally. EKG showed nonspecific ST-T abnormalities. There is no signs and symptoms of overt congestive heart failure. She is in a class II of [place] Heart Association functional class. There is no [...] feel obligated to take her to the [facility] [employer] sooner than later. There is a good [...] on ce weekly by Dr. Castillo in [place]. 4. Acute kidney injury on top of the stage III chronic kidney disease A. She also seen a architectural drafter at [facility] but recently los t follow-up. B. Kidney function is not much better today. She is hanging between stage III and stage I V she daily. 5. Obesity A. She has a poor lifestyle. 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 She does not watch what [employer] eats. 6. Inactivity 7. Noncompliance. A. Patient clearly has not started taking metformin as directed. 8. Hyperlipidemia A. she is now on Lipitor. PLAN: I spend time at length talking about natural course, treatment and prognosis of non-STEMI with recurrent chest pain. She will be taken to the [employer] [employer] for angiogram today.The risks and benefits of the procedu re including alternative treatment were discussed with the patient in length. The patient de cides to proceed with the procedure. Portions of this report were transcribed using voice recognition software. Every effort wa s made to ensure accuracy; however, inadvertent computerized systems integration manager errors may be pre sent. Electronically signed by: Marissa Rouse MD 11/21/2015 6:16 Molina Medina MD - 11/20/2015 1:12 PM PDT [facility] Progress Note Jessie Casarez is a 50 y.o. female SUBJECTIVE: Examined by me this afternoon. Patient with known CAD and 2 previous stents 2012, transferr ed from [facility] with chest pain and elevated Tpn. She [...] was found Confirmed by GEE PERALES, ALVA ([id number]) on 11/20/2015 8:05:17 AM CBC with Differential [...] as outlined above. Molina Owens 11/20/2015 13:12 [facility] Portions of this chart may have been created with [employer] voice recognition software. Occasi onal wrong-word or sound-alike substitutions may have occurred due to the inherent mary itations of voice recognition software. Please read the chart carefully and recognize, using context, where these substitutions have occurred Wagner Sandy M D - 11/20/2015 6:19 AM PDT [place], [place] BRIEF NOTE Patient: Jessie Casarez : 1965: Age: 50 y.o. MedRec: [id number] Admission date: 11/20/2015 Hospital day # : [...] does taylor Whitley sees Dr Castillo in [place] q 6 months with labs and boaz Whitley once a week on Fridays Car RRR Lung rhonchi NO wheezing Abd soft NT No more CHP Spoke with Dr Beavers whom will consult STOP Prednisone Wagner Chamorro MD 11/20/2015 6:19 [facility] Dot phrase reference: VSHOSP (VS in table, last 24 hours) MEYLAB (various labs to pull in) DT (date and time) LABRCNTIP[K:3,Na:3 (last 3 sets of labs using potassium and sodium as examples) HGB HCT PLT INR GLU POCGLU Na K BUN CREA, CALCIUM TROPONINI BNP DIGOXIN DDIMERQUANT Portions of this chart may have been created with [employer] voice recognition software. Occasi onal wrong-word or sound-alike substitutions may have occurred due to the inherent mary itations of voice recognition software. Please read the chart carefully and recognize, using context, where these substitutions have occurred documented in this en counter H&P Notes Victoriano Morales DO - 11/20/2015 3:15 AM PDTFormatting of this note might be different f rom the original. [facility] HISTORY & PHYSICAL Patient: Jessie Casarez : 1965: Age: 50 y.o. MedRec: [id number] PCP: Kyle Richey DO Admission date: 11/20/2015 Hospital day #: 0 Physician author: Victoriano Morales DO Today: 11/20/2015 CHIEF COMPLAINT: Chest pain since 11/16 HISTORY OF PRESENT ILLNESS: This is a 50 y.o. female with a history of CAD status post left circumflex stent placement in 2012 at [facility], diabetes which patient says she was told was borderline, COPD who present ed to [facility] with above complaint. According the patient [...] pain episodes. Patient was initially evaluated at [facility] emergency department where on blo od [...] very point [place] on Friday and she is worried about missing that. 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 pleural effusion, + for TB, treated with DOT through [facility] Dept RA (rheumatoid arthritis) ([facility]) 2001 Pleural effusion 10/2011, 11/2011 secondary to RA?, negative for TB TB (pulmonary tuberculosis) 2007 did not finish course of treatment NV (myocardial infarction) (HCC) 11/2012 CAD (coronary artery disease) CKD (chronic kidney disease) Tubal Obesity Acid reflux disease Past Surgical History Procedure Laterality Date Coronary angioplasty with stent placement 11/2012 Left Circumflex BMS x 1 at [facility] Cholecystectomy Salpingectomy Left for ectopic Thoracentesis 11/09/2011, [...] on her previous visit and is currently group home through the taper. Questions asked in ROS [...] overall unremarkable. DIAGNOSTIC STUDIES: Recent Labs Lab 11/20/15 0157 WBC 18.1* HGB 8.8* HCT 31.0* PLT Adequate | 248 NEUPCT 76.8 MONPCT 9.2 No results for input(s): PROTIME, INR in the last 168 hours. No results for input(s): PTT in the last 168 hours. Recent Labs Lab 11/20/15 0157 GLU 494* NA 134* K 4.7 CL 103 CO2 21* ANIONGAP 10 BUN 38* CREA 1.97* GFRNONAA 27* CALCIUM 9.1 ALBUMIN 3.4 TOTALPROTEIN 7.1 BILITOT 0.6 ALKPHOS 69 ALT 40 AST 46* Recent Labs Lab 11/20/15 015 BNP 230* Recent Labs Lab 11/20/15 0157 MG 2.1 Recent Labs Lab 11/20/15 0157 PHOS 4.9* No results for input(s): AMYLASE, LIPASE in the last 168 hours. No results for input(s): AMMONIA in the last 168 hours. No results for input(s): CK, CKMB in the last 168 hours. Invalid input(s): TROPONINI, CKTOTAL No results for input(s): PHART, PO2ART, HAG6NLO, TRP1KOF, BEART, W1RPXJDT in the last 168 h ours. No results for input(s): SPECSOURCE, PHPOCB, HCO3, TCO2, BEART, BE, FCCP1LDD in the last 16 8 hours. Invalid input(s): FRUHB5SF, PISU5RJ (dot meylab) Xray Results: No results found. [...] signed by: Victoriano Morales DO 11/20/2015 3:15 [facility] Dot phrase reference: VSHOSP (VS in table, last 24 hours) MEYLAB (various labs to pull in) DT (date and time) LABRCNTIP[K:3,Na:3 (last 3 sets of labs using potassium and sodium as examples) HGB HCT PLT INR GLU POCGLU Na K BUN CREA, CALCIUM TROPONINI BNP DIGOXIN Portions of this chart may have been created with [employer] voice recognition software. Occasi onal wrong-word or [...] Jessie Casarez, (1965) DATE OF PROCEDURE: 11/21/2015 INFORMATION ASSISTANT: Marissa Rouse MD PROCEDURES PERFORMED: Coronary Angiography [...] AM PDTAssociated Order(s): IP CONSULT TO DIABETE S SPECIALISTKerriana was given a Lali EZ Contour glucometer and tested with ease with results of 121 before dinner.She will need an RX for ongoing testing supplies as well as a referral for outpatient education upon discharge. They are showing an interest in controlling her blo od glucose. She is registered for the December Bur[place]ian group session and her also plan s to attend. Her speaks Burundian only so teaching was conducted in Burundian and all albreto ndouts were given to them in Bur[place]ian and [place] including a comprehensive diabetic educatio n booklet [...] inactivity, nonco mpliance. She was admitted to [facility] on 11/20/2015 for Non-ST el evation myocardial infarction (NSTEMI), initial episode of care . She had non-STEMI and underwent PTCA and stents 2 in 2012 at [facility]. Since that time, she saw a solids control technician for couple times and loss of follow-up. About 2 weeks ago, she had a head cold associated with cough and was seen by Dr. Richey, he r PCP at [facility]. Her symptoms did not respond to azithromycin pack. She was pu t on prednisone 40 mg a day starting on November 14, 2015. She started having a chest pain on 11/17/15 while she was working at the [employer] She describ ed it as a chest pressure 11/18 that radiated across the chest wall and was associated some s hortness of breath. No palpitation, dizziness or lightheadedness. No sweating. She waited until 11/19/15 when she had recurrent bad chest pain that took her to the ED of [facility] in [place]. She was found to have blood sugar of almost 1000 and troponin of 0.5 . She was transferred to [facility]. Patient was treated with aspirin, heparin IV. She is completely chest pain-free at [facility]. Her breathing is back to normal. She feel comfortable at this time. She has a poor lifestyle. 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 She de nies any regular exercise program. She does not watch what she eats. PAST MEDICAL HISTORY Past Medical History Diagnosis Date Chronic cough Internal hemorrhoid Extrapulmonary TB (tuberculosis) [id number] pleural effusion, + for TB, treated with DOT through [facility] Dept RA (rheumatoid arthritis) ([facility]) 2001 Pleural effusion 10/2011, 11/2011 secondary to RA?, negative for TB 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 NV (myocardial infarction) ([facility]) 11/2012 CAD (coronary artery disease) CKD (chronic [...] 11/2012 Left Circumflex BMS x 1 at [facility] Cholecystectomy Salpingectomy Left 1990s for ectopic Thoracentesis 11/09/2011, 12/09/2011, 01/2012 Tonsillectomy childhood Colonoscopy 09/04/2015 FAMILY HISTORY Family History Problem Relation Age of Onset Diabetes Mother Diabetes Father Heart attack Father Diabetes Sister Arthritis Sister SOCIAL HISTORY History Social History Marital Status: Spouse Name: N/A Number of Children: N/A Years of Education: N/A 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 Social History Main Topics Smoking status: Former Smoker Types: Cigarettes Quit date: 06/11/2012 Smokeless tobacco: Never Used Alcohol Use: No Drug Use: No Sexual Activity: Not on file Other Topics Concern Not on file Social History Narrative Merged History Encounter Lives: in [place] With: Grew up: [place], [place], [place], [place], [...] exertion Palp/Percussion: PMI in 5th ICS at [employer]; [...] was found Confirmed by GEE PERALES, ALVA ([id number]) on 11/20/2015 8:05:17 AM CBC with Differential [...] the LCx.Since that time, she saw a solids control technician for couple times and loss of follow-up. B. She started having a chest pain on 11/17/15 while she was working at the [employer] She cong cribed it as a chest pressure 7/10 that radiated across the chest wall and was associated so me shortness of breath. No palpitation, dizziness or lightheadedness. No sweating. She wa ited until 11/19/15 when she had recurrent bad chest pain that took her to the ED of [facility] in [place]. She was found to have blood sugar of almost 1000 and troponin of 0.5. She was transferred to [facility]. Patient was treated with aspirin, heparin IV. She is completely chest pain-free at the mo ment. Her breathing is back to normal. Troponin went up to 6.3. EKG showed nonspecific S T-T abnormalities. There is no signs and symptoms of overt congestive heart failure. She is in a class II o f [employer] Heart Association functional class. There is no [...] Humira once weekly by Dr. Castillo in [place]. 4. Acute kidney injury on top of the stage III chronic kidney disease A. She also seen a architectural drafter at [facility] but recently lost follow-up. 5. Obesity A. She has a poor lifestyle. 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 Sh e denies any regular exercise program. She does not watch what she eats. 6. Inactivity 7. Noncompliance. A. Patient clearly has not started taking metformin as directed. 8. Hyperlipidemia A. not treated. PLAN: 1. I spend time at length talking about natural course, treatment and prognosis of non-VISHAL NV with hyperosmolar syndrome and acute kidney injury [...] patient. Electronically signed by: Marissa Rouse MD [facility] 11/20/2015 8:19 Portions of this chart may have been created with [employer] voice recognition software. Occasi onal wrong-word or sound-alike substitutions may have occurred due to the inherent mary itations of voice recognition software. Please read the chart carefully and recognize, using context, where these substitutions have occurred. documented in this encounter Miscellaneous Notes Plan of Care - Cammy Sahu RN - 11/24/2015 5:16 PM PDTPatient called at home, patient was able to get effient prescription filled. Permission given to mail effient savings card, education packet and stent card. Patient signed up for [employer] program. Patient to follow up with Dr. Beavers in two weeks and PCP in one week. Cammy Sahu lan of Care - Shannan Rodríguez RN - 11/24/2015 3:53 [...] sugar s table. lan of Care - W Tiana Zayas RRT - 11/23/2015 2:55 PM PDTProblem: Patient [...] to do therapy as ordered and glen ke recommendations as indicated. lan of Jaycee Bass [...] ml of urine this shift. lan of Ross Ochoa, GREEN CHAIN OFFBEARER - 11/21/2015 9:31 PM PDTProblem: Patient Care [...] not in respiratory distress at this time. eICU Chris Bateman RN - 11/21/2015 12:30 PM PDTPatient to custom tailor apprentice via Bed. lan of Keira Herbert RRT - 11/21/2015 10:4 5 AM PDTProblem: [...] who is admitted for Chest pain [R07.9]. Hand Ii Blocker visit was part of routine rounding. Spiritual Evaluation: Patient was wanting to rest, so landscape painter visit was brief. Pt stated she had no needs at thi s time. Spiritual Interventions: Hand Ii Blocker assessed pt needs and offered blessing. Spiritual Outcomes: Patient did not express any spiritual needs at this time. Spiritual Goals/Follow up: Hand Ii Blocker will visit patient as needed or requested. If any additional spiritual issues guillermo e, please contact the landscape painter. lan of [place] - Jacques Snell RRT - 11/21/2015 6:21 AM PDTProblem: Patient [...] monitor and treat as indicated. lan of [facility] Quiana Mendes RN - 11/21/2015 6:13 AM PDTPatient c/o chest pain this morning. Patient called just as it started c/0 5/10 pain. Radiating into her back. Describes it as "pressur e" MD notified. EKG done, o2 2 liters placed. Nitro paste increased. 4mg morphine total given. Patient now resting stating pain is better at A 2/10,, lan of [facility] Quiana Pereira RN - 11/20/2015 11:52 PM [...] at bedside. No complaints.Quiana Martin lan of [facility] - ziggy, Keira Mao RRT - 11/20/2015 5:15 PM PDTProblem: Patient [...] no shortness of breath reported. lan of [facility] - Mansi Lao RN - 11/20/2015 3:52 PM Cassidy CORTEZ met with patient Jessie Casarez and her , Carlos today. They live in [place]. She states she is very independent. She states she uses [facility] in [place] and [facility] for mail order prescriptions. She declines the need for any home health services. Her will be her transportation home when she is medically stable for discharge. Jessie states her main concern is that she needs to be discharged so that she can go to an a [facility] for immigration for her in [place] on 11/21/2015. I explained that she is not medically stable at this point and is not ready for discharge. I offered to contact t he person needed regarding the immigration appt. Jessie contacted Karleydary Lerma their trademark attorney and had her contact me. A letter was done regarding the admission of Jessie and there is an unknown discharge date a t this time. Also her is needed here for medical decision making and support to his . Release of information was obtained and placed in the patients ghost chart. This letter was faxed to the trademark attorney, Karley Lerma @ fax # [phone] and her contact phone # is [phone]. I called Karley to inform her that they letter was done and has been faxed. Electronically signed by: Mansi Daley RN 11/20/2015 16:17 lan of Care [...] now down to 238 from 935 at [facility]. Troponin increased from 0.243 to 6.3. Creatinine [...] Outcome: Unchanged Goal Evaluation: Ashley transferred in [facility] on 2 LPM [place] and reports she [...] [address] | [place] | [phone] | | [facility] | | [address] | | | - LABORATORY | | | | + + + + + POC Glucose (11/24/2015 4:31 AM PDT) + +-------+ + + + | Component | Value | Ref Range | Performed | Pathologist | | | | | At | Signature | + +-------+ + + + | Glucose, | 150 | 70 - 150 mg/dL | [facility] | | | POC | | | [facility] | | | | | | MEDICAL [...] + | [facility] | [address] | [place] | [phone] | | [facility] | | [address] | | | - LABORATORY | | [...] | | | | | | [facility] | | [...] [address] | [place] | [phone] | | [facility] | | [address] | | | - LABORATORY | | [...] not | 33 (L)Comment: | >=60 | [facility] | | | | GLOMERULAR FILTRATION | mL/min/1.73m2 | [facility] | | | [place] | RATE,ESTIMATED | | MEDICAL | | | | mL/min/1.72g0Ofpj than | | CENTER - | | [...] | | ine Ratio | | | [facility] | | [...] [address] | [place] | [phone] | | [facility] | | [address] | | | - LABORATORY | | [...] | | | Cells | | | [facility] | | | | | MEDICAL | | | | | | CENTER - | | | | | | LABORATORY | | + + + + + + | Red Blood | 4.22 | 3.70 - 5.20 | [facility] | | | Cells | | M/uL | [facility] | | | | | | MEDICAL | | | | | | CENTER - | | | | | | LABORATORY | | + + + + + + | Hemoglobin | 7.7 (L) | 11.5 - 16.0 | [facility] | | | | | g/dL | [facility] | | | | | | MEDICAL [...] | | Basophils | | K/uL | . WE[facility] | | | | [...] + | [facility] | [address] | [place] | [phone] | | [facility] | | [address] | | | - LABORATORY | | [...] [address] | [place] | [phone] | | [facility] | | [address] | | | - LABORATORY | | | | + + + + + POC Glucose (11/23/2015 5:44 PM PDT) + +-------+ + + + | Component | Value | Ref Range | Performed | Pathologist | | | | | At | Signature | + +-------+ + + + | Glucose, | 120 | 70 - 150 mg/dL | [facility] | | | POC | | | [...] [address] | [place] | [phone] | | [facility] | | [address] | | | - LABORATORY | | [...] [address] | [place] | [phone] | | [facility] | | [address] | | | - LABORATORY | | [...] : 1965MEDICAL RECORD NUMBER: | | | [id number] OF PROCEDURE: 12/02/2015 | | | | | | PRIMARY CARE PROVIDER: KALEN Martinez | | | LEASE EXAMINER: Dr. Ray Bell MD, [facility]. PRE-PROCEDURE DIAGNOSIS: | | | 80% stenosis [...] femoral artery. A 6 | | | Faroese Edgar right guiding catheter was inserted in [...] | of 6 months. Ray Bell MD, FAC, [facility] | | | CenterDATE/TIME: 12/02/2015 9:247 9:24 Portions of this chart | | | were created with [employer] voice recognition software. Occasional | | | [...] | | | | |Ray Bell MD, [facility], | | |[facility] | | |DATE/TIME: 12/02/2015 9:24 | | |12/02/2015 9:24 | | | | | |Portions of this chart were created with [employer] recognition | | |software. Occasional wrong-word or [...] | | | | mmol/L | [facility] | | | | [...] | | | | | | [facility] | | | | | | MEDICAL | | | | | | CENTER - | | | | | | LABORATORY | | + + + + + + | Glucose | 140 (H) | 70 - 109 mg/dL | [facility] | | | | | | [facility] | | | | | | MEDICAL | | | | | | CENTER - | | | | | | LABORATORY | | + + + + + + | BUN | 16 | 7 - 18 mg/dL | [facility] | | | | | | [facility] | | | | | | MEDICAL | | | | | | CENTER - | | | | | | LABORATORY | | + + + + + + | Creatinine | 1.64 (H) | 0.60 - 1.30 | [facility] | | | | | mg/dL | [facility] | | | | | | MEDICAL | | | | | | CENTER - | | | | | | LABORATORY | | + + + + + + | eGFR if not | 33 (L)Comment: | >=60 | [facility] | | | | GLOMERULAR FILTRATION | mL/min/1.73m2 | [facility] | | | S[place]GAL[place] | RATE,ESTIMATED | | MEDICAL | | | | mL/min/1.62n5Qbny than | | CENTER - | | [...] + | [facility] | [address] | [place] | [phone] | | [facility] | | [address] | | | - LABORATORY | | [...] | Basophils | | K/uL | [facility] | | | | | | MEDICAL [...] [address] | [place] | [phone] | | [facility] | | [address] | | | - LABORATORY | | | | + + + + + POC Glucose (11/23/2015 4:26 AM PDT) + +-------+ + + + | Component | Value | Ref Range | Performed | Pathologist | | | | | At | Signature | + +-------+ + + + | Glucose, | 137 | 70 - 150 mg/dL | [facility] [...] [address] | [place] | [phone] | | [facility] | | [address] | | | - LABORATORY | | [...] + | [facility] | [address] | [place] | [phone] | | [facility] | | [address] | | | - LABORATORY | | [...] + | [facility] | [address] | [place] | [phone] | | [facility] | | [address] | | | - LABORATORY | | | | + + + + + POC Glucose (11/22/2015 6:12 PM PDT) + +-------+ + + + | Component | Value | Ref Range | Performed | Pathologist | | | | | At | Signature | + +-------+ + + + | Glucose, | 116 | 70 - 150 mg/dL | [facility] | | | POC | | | [...] | [address] | [place] | [phone] | | [facility] | | [address] | | | - LABORATORY | | [...] - 1.030 | [facility] | | | [place], | | | [facility] | | [...] [address] | [place] | [phone] | | [facility] | | [address] | | | - LABORATORY | | [...] + | [facility] | [address] | [place] | [phone] | | [facility] | | [address] | | | - LABORATORY | | | | + + + + + POC Glucose (11/22/2015 11:28 AM PDT) + +---------+ + + + | Component | Value | Ref Range | Performed | Pathologist | | | | | At | Signature | + +---------+ + + + | Glucose, | 267 (H) | 70 - 150 mg/dL | [facility] | | | POC | | | [...] [address] | [place] | [phone] | | [facility] | | [address] | | | - LABORATORY | | [...] | Blood in | | | Kayla [facility] | | | 2nd | | | [...] [address] | [place] | [phone] | | [facility] | | [address] | | | - LABORATORY | | [...] + | [facility] | [address] | [place] | [phone] | | [facility] | | [address] | | | - LABORATORY | | [...] not | 32 (L)Comment: | >=60 | [facility] | | | | GLOMERULAR FILTRATION | mL/min/1.73m2 | [facility] | | | [place] | RATE,ESTIMATED | | MEDICAL | | | | mL/min/1.89m4Wdid than | | CENTER - | | [...] + | BUN/Creatin | 12.0 | | [facility] | | | ine Ratio | | | [facility] | | | | | | [...] | [address] | [place], [place] | [phone] | | [facility] | | [address] | | | - LABORATORY | | [...] | | | Count | | | [facility] | | [...] | | Neutrophils | | | [facility] | | [...] | Basophils | | K/uL | [facility] | | | | | | MEDICAL [...] [address] | [place] | [phone] | | [facility] | | [address] | | | - LABORATORY | | [...] + | [facility] | [address] | [place] | [phone] | | [facility] | | [address] | | | - LABORATORY | | | | + + + + + Troponin I (11/21/2015 5:53 PM PDT) + + + + + + | Component | Value | Ref Range | Performed | Pathologist | | | | | At | Signature | + + + + + + | Troponin I | 4.09 ()Comment: | <0.06 ng/mL | [facility] | | | | Consistent with previous | | [facility] | | | | results. Reference | [...] | | | | | | [employer] | | | | | [...] + | [facility] | [address] | [place] | [phone] | | [facility] | | [address] | | | - LABORATORY | | [...] | [address] | [place], [place] | [phone] | | [facility] | | [address] | | | - LABORATORY | | [...] (1965) OF PROCEDURE: | | | 11/21/2015 INFORMATION ASSISTANT: Marissa Rouse MD PROCEDURES | | | [...] [address] | [place] | [phone] | | [facility] | | [address] | | | - LABORATORY | | [...] | | | | | | [employer] | | | | | [...] [address] | [place] | [phone] | | [facility] | | [address] | | | - LABORATORY | | [...] [address] | [place] | [phone] | | [facility] | | [address] | | | - LABORATORY | | | | + + + + + Troponin I (11/21/2015 5:55 AM PDT) + + + + + + | Component | Value | Ref Range | Performed | Pathologist | | | | | At | Signature | + + + + + + | Troponin I | 4.22 ()Comment: | <0.06 ng/mL | [facility] | | | | Reference | | [...] | | | | | results. [employer] | | | | | | [employer] [...] + | [facility] | [address] | [place] | [phone] | | [facility] | | [address] | | | - LABORATORY | | [...] | | | | ALVA FLYNN MD ([id number]) | | | | | | on [...] (L) | 20.0 - 55.0 % | [facility] | | | SATURATION | | | [facility] | | [...] [address] | [place] | [phone] | | [facility] | | [address] | | | - LABORATORY | | [...] (H) | 98 - 109 mmol/L | [facility] | | | | | | [facility] | | | | | | MEDICAL | | | | | | CENTER - | | | | | | LABORATORY | | + + + + + + | CO2 | 20 (L) | 24 - 31 mmol/L | [facility] | | | | | | ST. [...] | | | | | | [facility] | | | | | | MEDICAL | | | | | | CENTER - | | | | | | LABORATORY | | + + + + + + | BUN | 25 (H) | 7 - 18 mg/dL | [facility] | | | | | | [facility] | | | | | | MEDICAL | | | | | | CENTER - | | | | | | LABORATORY | | + + + + + + | Creatinine | 1.72 (H) | 0.60 - 1.30 | [facility] | | | | | mg/dL | [...] mL/min/1.73m2 | [facility] | | | [place] | RATE,ESTIMATED | | MEDICAL | | | | mL/min/1.65d6Uljz than | | CENTER - | | [...] [address] | [place] | [phone] | | [facility] | | [address] | | | - LABORATORY | | [...] | | Time | | seconds | [facility] | | | | [...] + | [facility] | [address] | [place] | [phone] | | [facility] | | [address] | | | - LABORATORY | | [...] [address] | [place] | [phone] | | [facility] | | [address] | | | - LABORATORY | | [...] | [address] | [place], [place] | [phone] | | [facility] | | [address] | | | - LABORATORY | | [...] | | [facility] | | | 1st | | | [...] [address] | [place] | [phone] | | [facility] | | [address] | | | - LABORATORY | | [...] + | [facility] | [address] | [place] | [phone] | | [facility] | | [address] | | | - LABORATORY | | | | + + + + + Troponin I (11/20/2015 1:41 PM PDT) + + + + + + | Component | Value | Ref Range | Performed | Pathologist | | | | | At | Signature | + + + + + + | Troponin I | 9.90 ()Comment: | <0.06 ng/mL | [facility] | | | | Consistent with Previous [...] | | | | | | [employer] | | | | | [...] [address] | [place] | [phone] | | [facility] | | [address] | | | - LABORATORY | | [...] [address] | [place] | [phone] | | [facility] | | [address] | | | - LABORATORY | | [...] 451 A | | | Patient Number [id number] Date of Study | | | 11/20/2015 Visit Number [id number] Accession | | | [id number] Referring Physician ALCIRA SPAIN P Number | | | Date of 1965 Eyelet Riveter | | | NINA COONEY, SUMA Age 50 year(s) | | | Interpreting PADMA WOLF | | | Outside Contractor Sales MARISSA ROUES, | | | | | | Gender Female Nurse | | | Procedure Type of Study TTE procedure: ECHO Complete. Procedure | | | dateDate: 11/20/2015Start: 09:15 AM Indications: ACUTE CORONARY | | | SYNDROME and myocardial Infarction, [id number]/I21.4. Height: 62 | | | inchesWeight: 209.88 [...] + | Robin, Rad Results In - 11/20/2015 11:15 AM PDT Transthoracic Echocardiography Report | | (TTE) Demographics Patient Name FAITH JIMENEZ Room Number 451 | | A Patient Number [id number] Date of Study 11/20/2015 Visit Number | | [id number] Referring Physician ALCIRA Hartman | | Number Date of 1965 Eyelet Riveter SUMA AHUMADA Age | | 50 year(s) Interpreting PADMA WOLF | | Outside Contractor Sales MARISSA ROUSE, | | Gender Female NurseProcedureType of Study TTE | | procedure: ECHO Complete.Procedure dateDate: 11/20/2015Start: 09:15 AMIndications: ACUTE | | CORONARY SYNDROME and myocardial Infarction, [id number]/I21.4.Height: 62 | | inchesWeight: 209.88 poundsBSA: 1.95 [...] not | 28 (L)Comment: | >=60 | [facility] | | | | GLOMERULAR FILTRATION | mL/min/1.73m2 | [facility] | | | [place] | RATE,ESTIMATED | | MEDICAL | | | | mL/min/1.12d7Cepr than | | CENTER - | | [...] | [address] | [place] | [phone] | | [facility] | | [address] | | | - LABORATORY | | [...] | | | | | | [employer] | | | | | [...] [address] | [place] | [phone] | | [facility] | | [address] | | | - LABORATORY | | [...] + | [facility] | [address] | [place] | [phone] | | [facility] | | [address] | | | - LABORATORY | | [...] + | [facility] | [address] | [place] | [phone] | | [facility] | | [address] | | | - LABORATORY | | | | + + + + + Protime INR (11/20/2015 3:41 AM PDT) + + + + + + | Component | Value | Ref Range | Performed | Pathologist | | | | | At | Signature | + + + + + + | Prothrombin | 13.9 | 11.3 - 13.9 | [facility] | | | Time | | seconds | [facility] | | | | [...] + | [facility] | [address] | [place] | [phone] | | [facility] | | [address] | | | - LABORATORY | | | | + + + + + PTT (11/20/2015 3:41 AM PDT) + +-------+ + + + | Component | Value | Ref Range | Performed | Pathologist | | | | | At | Signature | + +-------+ + + + | aPTT | 24 | 22 - 36 seconds | [facility] | | | | | [...] [address] | [place] | [phone] | | [facility] | | [address] | | | - LABORATORY | | [...] + + | Performing | Address | City/State/[facility] | Phone Number | | Organization | | | | + + + + + | [facility] | [address] | [place] | [phone] | | [facility] | | [address] | | | - LABORATORY | | [...] | samples are screened | uIU/mL | [facility] | | | | using a 2nd [...] | [address] | [place] | [phone] | | [facility] | | [address] | | | - LABORATORY | | | | + + + + + Folate (11/20/2015 1:57 AM PDT) + +---------+ + + + | Component | Value | Ref Range | Performed | Pathologist | | | | | At | Signature | + +---------+ + + + | FOLATE | 5.0 (L) | >5.8 ng/mL | [facility] | | | | | | [facility] | | | | | | MEDICAL [...] [facility]. | [address] | [place] | [phone] | | [facility] | | [address] | | | - LABORATORY | | | | + + + + + Vitamin B-12 (11/20/2015 1:57 AM PDT) + + + + + + | Component | Value | Ref Range | Performed | Pathologist | | | | | At | Signature | + + + + + + | VITAMIN | 467Comment: DEFICIENT: | 180 - 914 pg/mL | [facility] | | | B-12 | <145 | | [facility] | | | | pg/mLINDETERMINATE: | | [...] + | [facility] | [address] | [place] | [phone] | | [facility] | | [address] | | | - LABORATORY | | [...] + | [facility] | [address] | [place] | [phone] | | [facility] | | [address] | | | - LABORATORY | | | | + + + + + Iron and Transferrin (11/20/2015 1:57 AM PDT) + +---------+ + + + | Component | Value | Ref Range | Performed | Pathologist | | | | | At | Signature | + +---------+ + + + | Iron | 12 (L) | 40 - 150 ug/dL | [facility] | | | | | [...] + | [facility] | [address] | [place] | [phone] | | [facility] | | [address] | | | - LABORATORY | | [...] | | | Morphology | | | [facility] | | [...] seen. | [facility] | | | [facility] | | | [facility] | | | - LABORATORY | + + + + + + + + | Performing | Address | City/State/Zipcode | Phone Number | | Organization | | | | + + + + + | [facility] | [address] | [place] | [phone] | | [facility] | | [address] | | | - LABORATORY | | | | + + + + + Phosphorus (11/20/2015 1:57 AM PDT) + +---------+ + + + | Component | Value | Ref Range | Performed | Pathologist | | | | | At | Signature | + +---------+ + + + | Phosphorus | 4.9 (H) | 2.5 - 4.6 mg/dL | [facility] | | | | [...] + | [facility] | [address] | [place] | [phone] | | [facility] | | [address] | | | - LABORATORY | | [...] | | | | mmol/L | [facility] | | | | [...] not | 27 (L)Comment: | >=60 | [facility] | | | | GLOMERULAR FILTRATION | mL/min/1.73m2 | [facility] | | | [place] | RATE,ESTIMATED | | MEDICAL | | | | mL/min/1.62t1Gswb than | | CENTER - | | [...] [address] | [place] | [phone] | | [facility] | | [address] | | | - LABORATORY | | [...] + | [facility] | [address] | [place], [place] | [phone] | | [facility] | | [address] | | | - LABORATORY | | [...] [address] | [place] | [phone] | | [facility] | | [address] | | | - LABORATORY | | | | + + + + + Hemoglobin A1C (11/20/2015 1:57 AM PDT) + + + + + + | Component | Value | Ref Range | Performed | Pathologist | | | | | At | Signature | + + + + + + | Hemoglobin | 10.7 (H) | 4.3 - 6.0 % | [facility] | | | A1c | | | [facility] | | | | | | MEDICAL | | | | | | CENTER - | | | | | | LABORATORY | | + + + + + + | Estimated | 260 | mg/dL | [facility] | | | Average | | | [...] [address] | [place] | [phone] | | [facility] | | [address] | | | - LABORATORY | | [...] + | [facility] | [address] | [place] | [phone] | | [facility] | | [address] | | | - LABORATORY | | | | + + + + + B Type Natriuretic Peptide (11/20/2015 1:57 AM PDT) + +---------+ + + + | Component | Value | Ref Range | Performed | Pathologist | | | | | At | Signature | + +---------+ + + + | BNP | 230 (H) | <100 pg/mL | [facility] | | | | | | [facility] | | [...] [address] | [place] | [phone] | | [facility] | | [address] | | | - LABORATORY | | [...] HDL | 28 - 83 mg/dL | [facility] | | | | Reference Range as [...] | 146 (H) | <=130 mg/dL | [facility] | | | Calculated | | | [facility] | | [...] [address] | [place] | [phone] | | [facility] | | [address] | | | - LABORATORY | | | | + + + + + Troponin I (11/20/2015 1:57 AM PDT) + + + + + + | Component | Value | Ref Range | Performed | Pathologist | | | | | At | Signature | + + + + + + | Troponin I | 6.31 ()Comment: | <0.06 ng/mL | [facility] | | | | Reference | | [...] | | | | | [employer] | | | | | | [employer] [...] [address] | [place] | [phone] | | [facility] | | [address] | | | - LABORATORY | | [...] | | | Cells | | | [facility] | | | | | | MEDICAL [...] [address] | [place] | [phone] | | [facility] | | [address] | | | - LABORATORY | | [...] WAVE AXIS | 46 | degrees | [facility]ATH[facility] MUSE | | + + + + [...] | | | | ALVA FLYNN MD ([id number]) | | | | | | on [...] | | chromogenic agar method | | STKayla DODSON | | | [...] [address] | [place] | [phone] | | [facility] | | [address] | | | - LABORATORY | | [...] in this encounter Administered Medications + +--------+ +--------+------+------+ | Medication Order | MAR | Action | Dose | Rate | Site | | | Action | Date | | | | + +--------+ +--------+------+------+ | fentaNYL (PF) injection ONCE | Given | 11/21/19 | 25 mcg | | | | PRN, Starting 11/21/15 at | | 16 1:04 | | | | | 1257, Intra-op | | PM PDT | | | | + +--------+ +--------+------+------+ +-------+ +--------+---+---+ | Given | 11/21/19 | 25 mcg | | | | | 16 12:57 | | | | | | PM PDT | | | | +-------+ +--------+---+---+ | Given | 11/21/19 | 50 mcg | | | | | 16 12:57 | | | | | | PM PDT | | | | +-------+ +--------+---+---+ +---+---+ | | | +---+---+ + +-------+ +--------+---+---+ | heparin 1,000 units/mL | Given | 11/21/19 | 4,000 | | | | injection ONCE PRN, Starting e | | 16 1:03 | Units | | | | 11/21/15 at 1303, Intra-op | | PM PDT | | | | + +-------+ +--------+---+---+ +---+---+ | | | +---+---+ + +-------+ +--------+---+ + | iohexol (OMNIPAQUE 350) 350 | Given | 11/21/19 | 90 mLs | | Other | | mg/mL injection ONCE PRN, | | 16 1:22 | | | (Comment | | Starting 11/21/15 at 1322, | | PM PDT | | | ) | | Intra-op | | | | | | + +-------+ +--------+---+ + +---+---+ | | | +---+---+ + +-------+ +------+---+---+ | lidocaine buffered 1% injection | Given | 11/21/19 | 1 mL | | | | ONCE PRN, Starting 11/21/15 | | 16 12:57 | | | | | at 1257, Intra-op | | PM PDT | | | | + +-------+ +------+---+---+ +---+---+ | | | +---+---+ + +-------+ +--------+---+---+ | midazolam (VERSED) 1 mg/mL | Given | 11/21/19 | 0.5 mg | | | | injection ONCE PRN, Starting Tue | | 16 1:05 | | | | | 11/21/15 at 1257, Intra-op | | PM PDT | | | | + +-------+ +--------+---+---+ +-------+ +--------+---+---+ | Given | 11/21/19 | 0.5 mg | | | | | 16 12:57 | | | | | | PM PDT | | | | +-------+ +--------+---+---+ | Given | 11/21/19 | 1 mg | | | | | 16 12:57 | | | | | | PM PDT | | | | +-------+ +--------+---+---+ +---+---+ | | | +---+---+ + +-------+ +---------+---+---+ | nitroglycerin 100 mcg/mL | Given | 11/21/19 | 400 mcg | | | | syringe ONCE PRN, Starting Tue | | 16 1:00 | | | | | 11/21/15 at 1300, Intra-op | | PM PDT | | | | + +-------+ +---------+---+---+ +---+---+ | | | +---+---+ documented in this encounter
--- OUTSIDE RECORDS SUMMARY | ~2019-11-29 | XMS | Encounter Summary ---
Demographics + + + | Address | [address] | | | [place] [address] | + + + | Home Phone | | + + + | Preferred Language | Unknown | + + + | Marital Status | | + + + | Rastafarian Affiliation | Unknown | + + + | Race | Unknown | + + + | Ethnic Group | Unknown | + + + Author + + + | Author | [facility] | | | and [place] | + + + | Organization | [facility] | | | [...] Team Providers + +------+ + | Care Acid Strength Inspector Name | Role | Phone | + +------+ + | Kyle Richey DO | PCP | | + +------+ + Reason for Visit + + + | Reason | Comments | + + + | Follow-up | | + + + Follow Up (Routine) + +--------+ + + + + | Status | Reason | Specialty | Diagnoses / | Referred By | Referred To | | | | | Procedures | Contact | Contact | + +--------+ + + + + | Authorized | | Cardiology | Diagnoses | Kaiden, | Padma, | | | | | | Kyle Dobbs, | MD Maryann | | | | | Atherosclero | DO [address] | | | | | tic heart | [address] | [address] | | | | | disease of | [place], | [place], | | | | | [place] | [place] | [place] [address] | | | | | coronary | [address] | Phone: | | | | | artery | Phone: | [phone] | | | | | without | [phone] | Fax: | | | | | angina | Fax: | [phone] | | | | | pectoris | [phone] | | | | | | Encounter | | | | | | | for other | | | | | | | preprocedura | | | | | | | l | | | | | | | examination | | | | | | | Procedures | | | | | | | FOLLOW UP | | | + +--------+ + + + + Encounter Details +--------+---------+ + + + | Date | Type | Department | Care Team | Description | +--------+---------+ + + + | 08/23/ | Office | [facility] | Maryann Rouse, | Coronary artery | | 2019 | Visit | CARDIOLOGY [address] | disease involving | | | | [place], | [place], | [place] coronary | | | | [place] [address] | [place] [address] | artery of [place] | | | | [phone] | [phone] | heart without angina | | | | | | pectoris (Primary | | | | | | Dx); Acute coronary | | | | | | syndrome (HCC) | +--------+---------+ + + + Social History [...] + | Blood Pressure | 136/74 | 08/24/2019 10:29 AM | | | | | PDT | | + + + + + | Pulse | 70 | 08/24/2019 10:29 AM | | | | | PDT | | + + + + + | Temperature | - | - | | + + + + + | Respiratory Rate | 16 | 08/24/2019 10:29 AM | | | | | PDT | | + + + + + | Oxygen Saturation | - | - | | + + + + + | Inhaled Oxygen | - | - | | | Concentration | | | | + + + + + | Weight | 94.8 kg (209 lb) | 08/24/2019 10:29 AM | | | | | PDT | | + + + + + | Height | 157.5 cm (5' 2") | 08/24/2019 10:29 AM | | | | | PDT | | + + + + + | Body Mass Index | 38.23 | 08/24/2019 10:29 AM | | | | | PDT | | + + + + + documented in this encounter Patient Instructions Patient Instructions Justice Son RN - 08/24/2019 10:30 AM PDT Blood test: Fasting- 12 hours prior to test, no food, no caffiene, water is ok and encourag ed Date Due: today Where to go for labs: [facility]- [address] [facility] Follow up appointment: 1 year Provider: Maryann Rouse MD Date: Check-In Time: documented in this encounter Progress Notes Maryann Rouse MD - 08/24/2019 10:30 AM PDTFormatting of this note might be different f rom the original. PATIENT NAME: Jessie Casarez : 1965: AGE: 54 y.o. PRIMARY CARE: Kyle Richey DO OUTPATIENT FOLLOW UP VISIT Date of Service: 08/24/2019 HISTORY OF PRESENT ILLNESS: Jessie Casarez is a 54 y.o. female with a history of coronary artery disease involving sarah danielle coronary artery of [place] heart without angina pectoris post non-STEMI post PTCA and carolyn nt of RCA by Dr. Bell on 11/23/15, type II diabetes, essential hypertension, mixed hyperlipi demia, obesity, stage III chronic kidney disease, noncompliant, suspecting obstructive sleep apnea. She is being seen today for follow up. She was last seen 03/26/2018 at which time patient was to proceed with surgery and continue with current medical regimen. Since that time, patient complains of "shocking little pains" on her chest that happens at any time and only last seconds. Her breathing is worsening and she associates to her COPD. Patient is physically active walking 45 minutes three times a w [place]. There is no palpitations, dizziness or lightheadedness. There is no ankle or leg swelli ng. Patient can sleep on one pillow at night without difficulty breathing. MEDICAL, SURGICAL, AND PERSONAL HISTORY Past Medical, Surgical, Family, and Social History are reviewed in EPIC. CURRENT PROBLEMS Patient Active Problem List Diagnosis Extrapulmonary TB (tuberculosis) RA (rheumatoid arthritis) Pleural effusion Coronary artery disease involving [place] coronary artery of [place] heart without angina pectoris CKD (chronic kidney [...] u se of insulin Essential hypertension, benign Abdominal wall seroma Hypertension Iron deficiency anemia due to chronic blood loss Pleurisy Vaginitis Status post total abdominal hysterectomy Thyroid mass Uterine leiomyoma Wound infection after surgery CURRENT MEDICATIONS Current Outpatient Medications Medication Sig Dispense Refill adalimumab (HUMIRA PEN) 40 mg/0.8 mL injection (pen) Inject 0.8 mLs under the skin ever y 7 days. aspirin 81 MG tablet Take 81 mg by mouth Daily. atorvaSTATin (LIPITOR) 80 MG tablet Take 1 tablet by mouth nightly. 90 tablet 3 ferrous sulfate 325 mg tablet Take 325 mg by mouth daily (with breakfast). fluticasone (FLOVENT HFA) 220 mcg/puff inhaler Inhale 2 puffs into the lungs 2 times da armaan. glipiZIDE (GLUCOTROL XL) 2.5 mg 24 hr tablet Take 2.5 mg by mouth daily (with breakfast ). lisinopril (PRINIVIL, ZESTRIL) 10 mg tablet Take 1 tablet by mouth Daily. 90 tablet 3 metoprolol succinate (TOPROL-XL) 25 mg 24 hr tablet TAKE 1 TABLET BY MOUTH ONCE DAILY nitroglycerin (NITROSTAT) 0.4 mg SL tablet Take one tablet under tongue as needed for c hest pain, may repeat every 5 minutes up to 3 doses. If no relief after 3rd dose, call [phone] 90 tablet 3 oxyCODONE (ROXICODONE) 5 mg tablet Take 5 mg by mouth every 4 hours as needed for Pain. No current facility-administered medications for this visit. ALLERGIES Allergies Allergen Reactions Albuterol Itching and Other (See Comments) Headache Metformin Other (See Comments) Patient states it was contraindicated with another medication. Plavix [Clopidogrel] Other (See Comments) Reaction Unknown ROS Review of Systems Constitutional: Negative for chills, diaphoresis, fever, malaise/fatigue and weight loss. HENT: Negative for congestion, hearing loss, nosebleeds and tinnitus. Dental Problems = No Eyes: Negative for blurred vision and double vision. Respiratory: Negative for shortness of breath. Cardiovascular: Positive for chest pain (shoking feeling) and leg swelling (with RA ). Nega tive for palpitations. Gastrointestinal: Negative for blood in stool, constipation, [...] not have insomnia. OBJECTIVE: PHYSICAL EXAM BP 136/74 | Pulse 70 | Resp 16 | Ht 1.575 m (5' 2") | Wt 94.8 kg (209 lb) | LMP 2017 (Approximate) | BMI 38.23 kg/m Physical Exam Constitutional: She is oriented to person, place, and time. She appears well-developed and well-nourished. Female individual, no acute distress. Neck: Normal carotid pulses and no JVD present. Carotid bruit is not present. Cardiovascular: Normal rate, regular rhythm, S1 normal, S2 normal, normal heart sounds and intact distal pulses. PMI is not displaced. Exam reveals no gallop and no friction rub. No murmur heard. Pulses: Carotid pulses are 2+ on the right side and 2+ on the left side. Posterior tibial pulses are 2+ on the right side and 2+ on the left side. Pulmonary/Chest: Effort normal and breath sounds normal. No accessory muscle usage. No resp iratory distress. She has no wheezes. She has no rhonchi. She has no rales. Decrease breath sound bilaterally Abdominal: Soft. Normal appearance and normal aorta. She exhibits no abdominal bruit. There is no hepatosplenomegaly. There is no abdominal tenderness. Musculoskeletal: General: No edema. Neurological: She is alert and oriented to person, place, and time. Gait normal. Skin: Skin is warm and dry. No cyanosis. Nails show no clubbing. Psychiatric: She has a normal mood and affect. Her mood appears not anxious. She does not e xhibit a depressed mood. ECG: Normal sinus rhythm, nonspecific ST & T change. LAB RESULTS reviewed during visit today primarily from [facility]: LIPID Lab Results Component Value Date CHOL 257 (H) 11/20/2015 TRIG 304 (H) 11/20/2015 HDL 50 11/20/2015 LDL 146 (H) 11/20/2015 CHOLHDL 7.0 (A) 02/20/2018 LDLEX 167 (A) 02/20/2018 HDLEX 40 02/20/2018 TRIGEX 363 (A) 02/20/2018 CHOLEX 279 (A) 02/20/2018 CHEMISTRY Lab Results Component Value Date GLU 144 (H) 03/25/2016 GLUEX 15 (A) 02/20/2018 GLUEX 151 (A) 02/20/2018 NA 136 07/27/2018 NAEX 136 02/20/2018 K 3.8 07/27/2018 KEX 3.7 02/20/2018 CL 101 07/27/2018 CLEX 106 02/20/2018 CO2 24 07/27/2018 CO2EX 22 02/20/2018 CALCIUM 9.0 07/27/2018 ALKPHOS 69 11/20/2015 AST 14 07/27/2018 ASTEX 16 02/20/2018 ALT 10 07/27/2018 ALTEX 14 02/20/2018 BILITOT 0.8 07/27/2018 CREA 1.85 (H) 03/25/2016 BUN 28 (H) 07/27/2018 EGFR 26 (L) 07/27/2018 EGFREX 36 06/06/2017 CREEX 1.5 (A) 06/06/2017 HEMATOLOGY Lab Results Component Value Date WBC 14.41 (H) 08/03/2018 WBCEX 9.2 02/20/2018 HGB 11.6 08/03/2018 HGBEX 10.4 (A) 02/20/2018 HCT 26.7 (L) 11/24/2015 HCTEX 34.1 (A) 02/20/2018 PLT 258 11/24/2015 PLTEX 314 02/20/2018 Above data and testing is reviewed this visit; testing below is historical data unless othe rwise specified. ASSESSMENT: 1. Coronary artery disease involving [place] coronary artery of [place] heart without angina pectoris/non-STEMI: A. Post non-STEMI. Left heart cath on 11/21/12 showed 95% stenosis of the LCx, 20-30% stenosis of the proximal RCA. 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 B. Echocardiogram on 11/20/15 showed Mild biatrial dilatation. Maria l left ventricular size, wall thickness and motion. Preserved left ventricular systolic func tion. LVEF is 60%. Normal valvular structure. Normal right-sided pressure. Normal IVC with n ormal respiratory collapse. C. She started having a chest pain on 11/17/15 while she was working at the [employer]. She described it as a chest pressure 11/18 that radiated across the chest wa ll and was associated some shortness of breath. No palpitation, dizziness or lightheadedne ss. No sweating. She waited until 11/19/15 when she had recurrent bad chest pain that too k her to the ED of [facility] in [place]. She was found to have blood sugar of almost 1000 and troponin of 0.5. She was transferred to [facility]. D. Left heart cath on 11/21/15 [...] by gated SPECT is 64 %. G. LHC 03/25/16, shows non-critical coronary artery disease; 50-70% [...] modification and Medical management. H. Today, patient complains of "shocking little pains" on her chest that happens at any time and only last seconds. Her breathing is worsening and she associat es to her COPD. Patient is physically active walking 45 minutes three times a week. There is no signs and symptoms of overt congestive heart failure. She is in a class I of [employer] functional class. There is no fluid retention on physical examination. 2. Essential hypertension with goal blood pressure less than 130/80: A. Today, her blood pressure in office is within target. 3. Type II diabetes/noncompliant with medication. A.She is known to have history of type II diabetes. She was presc ribed on metformin 500 mg twice a day starting in July,.Patient has not been seen by endocrinology yet, but she has been monitoring blood sugars and has met with diabetic educyoko Shetty Today, she will have her A1c checked. 4. Rheumatoid arthritis. Not addressed today. A. She has a history of rheumatoid arthritis and received Humira on ce weekly by Dr. Castillo in [place]. 5.Acute kidney injury on top of the stage III chronic kidney disease. Not addressed today . A. She also seen a sock liner at [facility] but recently los t follow-up. B. Ultrasound retroperitoneal 07/01/2016 shows abnormally echogenic kidneys, compatible with medical renal disease. Kidneys are slightly decreased in size since 2011, no evidence of obstruction. 6. Obesity and Inactivity. A. She has been physically active walking three times a week for up to 45 minut es. 7. Hyperlipidemia, mixed: A. Today, patient is taking atorvastatin 80 mg. Patient has history of CAD. Guidelines recommend high-intensity statin. 8. Suspecting obstructive sleep apnea A. Patient has 08/17 on stop bag questionnaire. B. She has not been working for the past month and has now been sleeping well. 9. Upper GI bleeding. Not addressed today. A. Patient had upper and lower endoscopy on 02/02/2018. She was told that he alberto s peptic ulcer disease. 10. Smoking A. She smokes one quarter of a pack of cigarettes daily. PLAN: 1. She will continue with current medical regimen. 2. Check CBC, CMP, TSH, A1c and lipid panel. 3. I recommend a therapeutic lifestyle change including walking 30 minutes a day, choosing healthy choices of diet , including DASH diet, weight reduction and 7 hours of high quality sleep a night. 4. I recommend smoking cessation. Over 10 min spent counseling for smoking addiction and ce ssation. 5. Follow-up in one year or sooner with concerns. I, Rosy Landis, am acting as a scribe on behalf of, and in the presence of Maryann fuentes MD. I have reviewed and edited this note. Rosy Landis Public Health Staff Nurse 08/24/2019 I, Maryann Rouse MD, personally performed the services described in this documentation, as scribed in my presence and it is both accurate and complete. Rosy Landis, Med Ass t 08/24/2019 10:33 AM Electronically signed by: Maryann Rouse MD [facility] 08/24/2019 Portions of this chart may have been created with [employer] voice recognition software. Occasi onal wrong-word or [...] | ECG 12 LEAD | Routin | 08/24/2019 | Coronary artery | Results for this | | | e | 10:24 AM | disease involving | procedure are in the | | | | PDT | [place] coronary | results section. | | | | | artery of [place] | | | | | | heart without angina | | | | | | pectoris | | + +--------+ + + + documented in this encounter Results Lipid Panel (08/24/2019 11:27 AM PDT) + +---------+ + + + | Component | Value | Ref Range | Performed | Pathologist | | | | | At | Signature | + +---------+ + + + | Triglycerid | 397 (H) | <=150 mg/dL | [facility] | | | es | | [facility] | | | | | | [facility] | | + +---------+ + + + | Cholesterol | 260 (H) | <=200 mg/dL | [facility] | | | | | [facility] | | | [facility] | | | | | | [facility] | | + +---------+ + + + | HDL | 56 | 40 - 60 mg/dL | [facility] | | | | | | [facility] | | | | [facility] - | | | | | | [facility] | | + +---------+ + + + | Chol/HDL | 4.6 | | [facility] | | | Ratio | | | [facility] | | [facility] | [facility] | | | | | [facility] - | | | | | | LAB[facility]ATORY | | + +---------+ + + + | LDL, | 125 | <=130 mg/dL | [facility] | | [...] [address] | [place] | [phone] | | [facility] | | [address] | | | - LABORATORY | | | | + + + + + TSH (08/24/2019 11:27 AM PDT) + +-------+ + + + | Component | Value | Ref Range | Performed | Pathologist | | | | | At | Signature | + +-------+ + + + | TSH | 0.84 | 0.55 - 4.78 | [facility] | | | | | uIU/mL | [facility] | | | | [...] + | [facility] | [address] | [place] | [phone] | | [facility] | | [address] | | | - LABORATORY | | | | + + + + + Comprehensive Metabolic Panel (08/24/2019 11:27 AM PDT) + + + + + + | Component | Value | Ref Range | Performed | Pathologist | | | | | At | Signature | + + + + + + | Na | 140 | 136 - 145 | [facility] | | | | | mmol/L | [facility] | [facility] - | | | | | | LAB[facility]ATORY | | + + + + + + | K | 4.5 | 3.4 - 5.1 | [facility] | | | | | mmol/L | [facility] | [facility] | | [facility] | [facility] - | | | | | | LABORATORY | | + + + + + + | Cl | 110 (H) | 98 - 107 mmol/L | [facility] | | | | | [facility] | | | | | [facility] - | | | | | | LAB[facility]ATORY | | + + + + + + | CO2 | 20 | 20 - 31 mmol/L | [facility] | | [...] + + + + | Glucose | 166 (H) | 60 - 106 mg/dL | [facility] | | | | [facility] | | | | | [facility] - | | | | | | LAB[facility]ATORY | | + + + + + + | BUN | 38 (H) | 9 - 23 mg/dL | [facility] | | | | | | [facility] | [facility] | [facility] | | [facility] | | | [facility] - | | | | | | LABORATORY | | + + + + + + | Creatinine | 2.24 (H) | 0.55 - 1.02 | [facility] | | | | | mg/dL | [facility] | | | | | | [facility] | | | | | | [facility] - | | | | | | LABORATORY | | + + + + + + | eGFR if not | 23 (L)Comment: | >=60 | [facility] | | | | GLOMERULAR FILTRATION | mL/min/1.73m2 | [facility] | | | DUTCH | RATE,ESTIMATED | | MEDICAL | | | | mL/min/1.12k1Dour than | | CENTER - | | [...] + + + + | Calcium | 9.6 | 8.7 - 10.4 | [facility] | | | | | mg/dL | [facility] | | | | | | [facility] | | | | | | [facility] - | | | | | | LABORATORY | | + + + + + + | Albumin | 4.6 | 3.2 - 4.8 g/dL | [facility] | | | | [facility] | | | | | | [facility] | | | | | | [facility] - | | | | | | LABORATORY | | + + + + + + | Bilirubin | 0.6 | 0.3 - 1.2 mg/dL | [facility] | | | Total | | | [facility] | [facility] | [facility] | | | | | | [facility] - | | | | | | LABORATORY | | + + + + + + | Total | 7.9 | 5.7 - 8.2 g/dL | [facility] | | | Protein | | | [facility] | [facility] | [facility] | | | | | | [facility] - | | | | | | LABORATORY | | + + + + + + | AST | 15 | 0 - 34 U/L | [facility] | | | | | | [facility] | [facility] | [facility] | | | | | | [facility] - | | | | | | LAB[facility]ATORY | | + + + + + + | ALT | 12 | 10 - 49 U/L | [facility] | | | | | | [facility] | [facility] | [facility] | | | | | | [facility] - | | | | | | LABORATORY | | + + + + + + | Alkaline | 114 | 46 - 116 U/L | [facility] | | | Phosphatase | | | [facility] | | | | | [facility] | | | | | | [facility] - | | | | | | LABORATORY | | + + + + + + | Globulin | 3.3 | 2.1 - 3.8 g/dL | [facility] | | | | | | [facility] | | [facility] | | [facility] | | | | | | [facility] - | | | | | | LABORATORY | | + + + + + + | Albumin/Lissette | 1.4 | 0.8 - 1.9 | [facility] | | | bulin Ratio | | | [facility] | | | | | | [facility] | | | | | | [facility] - | | | | | | LABORATORY | | + + + + + + | BUN/Creatin | 17.0 | | [facility] | | | ine Ratio | | | [facility] | | [...] [address] | [place] | [phone] | | [facility] | | [address] | | | - LABORATORY | | | | + + + + + CBC with Differential (08/24/2019 11:27 AM PDT) + + + + + + | Component | Value | Ref Range | Performed | Pathologist | | | | | At | Signature | + + + + + + | White Blood | 10.8 | 4.0 - 11.0 K/uL | [facility] | | | Cells | | | [facility] | | | | | | [facility] | | | | | | [facility] - | | | | | | LABORATORY | | + + + + + + | Red Blood | 5.27 (H) | 3.70 - 5.20 | [facility] | | | Cells | | M/uL | [facility] | | | | | [facility] | | | | | | [facility] - | | | | | | LABORATORY | | + + + + + + | Hemoglobin | 15.9 | 11.5 - 16.0 | [facility] | | | | | g/dL | [facility] | | [facility] | | [facility] | | | | | | [facility] - | | | | | | LABORATORY | | + + + + + + | Hematocrit | 47.0 | 34.0 - 47.0 % | [facility] | | | | | | [facility] | | | [facility] | | [facility] | | | | | | [facility] - | | | | | | LABORATORY | | + + + + + + | MCV | 89.2 | 83.0 - 101.0 fL | [facility] | | | | | [facility] | | | | | | [facility] - | | | | | | LABORATORY | | + + + + + + | MCH | 30.2 | 28.0 - 35.0 pg | [facility] [...] + + + + | RDW-SD | 43.7 | 35.1 - 46.3 fL | [facility] | | | | | | [facility] | [facility] | | | | | | [facility] - | | | | | | LABORATORY | | + + + + + + | Platelet | 267 | 140 - 440 K/uL | [facility] | | | Count | | | [facility] | | | | | | [facility] | | | | | | [facility] - | | | | | | LABORATORY | | + + + + + + | MPV | 11.3 | 6.5 - 12.4 fL | [facility] | | | | | | [facility] | | | [facility] | | [facility] | | | | | | [facility] - | | | | | | LABORATORY | | + + + + + + | % | 65.4 | 45.0 - 82.0 % | [facility] | | | Neutrophils | | | [facility] | | | | | | [facility] | | | | | | C[facility] - | | | | | | LABORATORY | | + + + + + + | % | 26.6 | 20.0 - 45.0 % | [facility] | | | Lymphocytes | | | [facility] | | | | | | [facility] | | | | | | [facility] - | | | | | | LABORATORY | | + + + + + + | % Monocytes | 4.8 | 4.0 - 12.0 % | [facility] | | | | | | [facility] | | | [facility] | | [facility] | | | | | | [facility] - | | | | | | LABORATORY | | + + + + + + | % | 1.7 | 0.0 - 5.0 % | [facility] [...] + + + | % Immature | 0.4 | 0.0 - 0.4 % | [facility] | | | Granulocyte | | | [facility] | | | s | | | [facility] | | | | | | CENTER - | | | | | | LABORATORY | | + + + + + + | Absolute | 7.09 | 1.80 - 8.50 | [facility] | | | Neutrophils | | K/uL | [facility] | | | | | | [facility] | | | | | | [facility] - | | | | | | LABORATORY | | + + + + + + | Absolute | 2.88 | 0.60 - 3.20 | [facility] | | | Lymphocytes | | K/uL | [facility] | | | | | | [facility] | | | | | | [facility] - | | | | | | LABORATORY | | + + + + + + | Absolute | 0.52 | 0.00 - 1.00 | [facility] | | | Monocytes | | K/uL | [facility] | | | | | | [facility] | | | | | | C[facility] - | | | | | | LABORATORY | | + + + + + + | Absolute | 0.18 | 0.00 - 0.40 | [facility] | | | Eosinophils | | K/uL | [facility] | | | | | [facility] | | | | | | [facility] - | | | | | | LABORATORY | | + + + + + + | Absolute | 0.12 (H) | 0.00 - 0.10 | [facility] | | | Basophils | | K/uL | [facility] | | | | | | [facility] | | | | | | [facility] - | | | | | | LABORATORY | | + + + + + + | Absolute | 0.04 (H) | 0.00 - 0.03 | [facility] | | | Immature | | K/uL | [facility] | | | Granulocyte | | | MEDICAL | | | s | | | CENTER - | | | | | | LABORATORY | | + + + + + + | % nRBC | 0 | 0 - 2 per 100 | [facility] | | | | | WBCs | [facility] | | | | | | [facility] | | | | | | [facility] - | | | | | | LABORATORY | | + + + + + + | Absolute | 0.00 | 0.00 - 0.01 | [facility] | | | nRBC | | K/uL | [facility] | [...] [address] | [place] | [phone] | | [facility] | | [id number] | | | - LABORATORY | | | | + + + + + ECG 12 lead (08/24/2019 10:24 AM PDT) + + + + + + | Component | Value | Ref Range | Performed | Pathologist | | | | | At | Signature | + + + + + + | VENTRICULAR | 70 | BPM | [facility] | | | RATE EKG | | | | | + + + + + + | ATRIAL RATE | 70 | BPM | [facility] | | + + + + + + | P-R | 128 | ms | [facility] | | [...] + + + + | Q-T | 412 | ms | [facility] | | | INTERVAL | | | | | | (CORRECTED) | | | | | + + + + + + | P WAVE AXIS | 23 | degrees | [facility] | | + + + + + + | QRS AXIS | -40 | degrees | [facility] | | + + + + + + | T AXIS | 117 | degrees | [facility] | | + + + + + + | INTERPRETAT | Normal sinus rhythmLeft | | [facility] | | | ION TEXT | axis deviation NSSTT | | | | | | change Consider right | | | | | | ventricular involvement | | | | | | in acute inferior | | | | | | infarctAbnormal ECGWhen | | | | | | compared with ECG of | | | | | | 26-MAR-2018 15:20,No | | | | | | significant change was | | | | | | foundConfirmed by | | | | | | MARYANN ROUSE MD | | | | | | ([id number]) on 08/24/2019 | | | | | | 12:30:51 PM | | | | + + [...] + + | Coronary artery disease involving [place] coronary artery of [place] heart without | | angina pectoris - Primary | + + | Acute coronary syndrome (HCC) Intermediate coronary syndrome | + + documented in this encounter
--- OUTSIDE RECORDS SUMMARY | ~2019-11-29 | XMS | Encounter Summary ---
Demographics + + + | Address | [address] | | | [place] [address] | + + + | Home Phone | | + + + | Preferred Language | Unknown | + + + | Marital Status | | + + + | Alevism Affiliation | Unknown | + + + [...] Providers + +------+ + | Care Machine Engineer Name | Role | Phone | + +------+ + | Kyle Richey DO | PCP | | + +------+ + Reason for Visit + + + | Reason | Comments | + + + | Wound Check | wound draining excessive fluid begun at noon today | + + + Encounter Details +--------+ + + + + | Date | Type | Department | Care Team | Description | +--------+ + + + + | 07/28/ | Clinical | [facility] | Megha Hogan, | Patient left after | | 2019 | Support | [facility] [address] | Need updated | triage (Primary Dx) | | | | [place] | address | | | | | [address] | | | | | | [phone] | | | +--------+ + + + [...] documented as of this encounter Progress Notes Diana Paige RN - 07/28/2018 4:00 PM PDT This is a Rapid Triage & this patient was not seen by a physician during this triage: Chief Complaint Patient presents with Wound Check wound draining excessive fluid begun at noon today There were no vitals taken for this visit. 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, + for TB, treated with DOT through [facility] Extrapulmonary tuberculosis Hypertension Internal hemorrhoid Leukocytosis ID (myocardial infarction) (HCC) 11/2012 Obesity Pleural effusion 10/2011, 11/2011 secondary to RA?, negative for TB Pleural effusion RA (rheumatoid arthritis) ([facility]) 2001 RA (rheumatoid arthritis) ([facility]) Sleep apnea 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 The patient has chosen: [facility] [] Other: Reason for triage recommendation: Out of Scope of Practice or Complex Medical Needs Suspected Cardiac: [] Seizures: [] Advanced Respiratory Condition: [] Head Injury with LOC: [] Pre-Collette Problems: [] Victim of Crime: [] Child/Elder Abuse: [] Severe Abdominal Pain: [] "Worst pain in life": [] Need for IV Medication: [] After-hours Radiology Reading needs by [facility]: [] Patient with complex workup: [x] Patient in need of hospital admission: [] Patient at risk if to remain in Urgent Care: [] Patient refused assessment during triage: [] The recommended mode of transportation is: Patient/Family Transport-- x Staff Transport-- EMS-- Other: Patient has Accepted or Declined these recommendations: [x] Accept [] Decline Patient/guardian signature will be scanned in to EMR *Patient has been advised to the reasons that he/she is being triaged to the ED* [x] *Report has been called to the ED charge nurse regarding triage findings* [x] Nurse's name who took report: Joy *The patient has been informed that the ED staff will be aware of his/her arrival, although patient may not be roomed immediately, they will be seen as soon as possible.* [x] documented in thi s encounter Plan of Treatment Not on filedocumented as of this encounter Visit Diagnoses + + | Diagnosis | + + | Patient left after triage - Primary | + + documented in this encounter
--- OUTSIDE RECORDS SUMMARY | ~2019-11-29 | XMS | Encounter Summary ---
Demographics + + + | Address | [address] | | | [place] [address] | + + + | Home Phone | | + + + | Preferred Language | Unknown | + + + | Marital Status | | + + + | Adventism Affiliation | Unknown | + + + | Race | Unknown | + + + | Ethnic Group | Unknown | + + + Author + + + | Author | [facility] | | | and [place] | + + + | Organization | [facility] | | | and [place] | + + + | Address | Unknown | + + + | Phone | Unavailable | + + + Support + + +---------+ + | Name | Relationship | Address | Phone | + + +---------+ + | Carlos | ECON | Unknown | | | [place] | | | | + + +---------+ + Care Team Providers + +------+ + | Care Family Court Counsellor Name | Role | Phone | + +------+ + | Kyle Richey DO | PCP | | + +------+ + Encounter Details +--------+ + + + + | Date | Type | Department | Care Team | Description | +--------+ + + + + | 11/20/ | Hospital | C GENERIC IP | Conversion | Pain | | 2016 | Encounter | CONVERSION [address] | Transaction, | | | | | [address] | Provider Unknown | | | | | [place], [place] | [phone] | | | | | [address] | | | | | | [phone] | | | +--------+ + + + [...] | CV CARDIAC PROCEDURE | Routin | 11/21/2015 | | Results for this | | | e | 2:09 PM | | procedure are in the | | | | PDT | | results section. | + +--------+ + + + documented in this encounter Results CV CARDIAC PROCEDURE (11/21/2015 2:09 PM PDT) + + | Specimen | + + | | + + + + + | Narrative | Performed At | + + + | This is a non-reportable procedure without a radiologist report and | | | is used for image storage only | | + + + + + | Procedure Note | + + | Jayme Kelly - 12/30/2018 3:08 PM PDT This is a non-reportable procedure | | without a radiologist report and isused for image storage only | + + documented in this encounter Visit Diagnoses + + | Diagnosis | + + | Pain Generalized pain | + + documented in this encounter"
--- OUTSIDE RECORDS SUMMARY | ~2019-11-29 | XMS | Encounter Summary ---
Demographics + + + | Address | [address] | | | [place] [address] | + + + | Home Phone | | + + + | Preferred Language | Unknown | + + + | Marital Status | | + + + | Mosque Affiliation | Unknown | + + + [...] Team Providers + +------+ + | Care Coding Quality Coordinator Name | Role | Phone | + +------+ + PCP | Unavailable | + +------+ + Encounter Details +--------+ + + + + | Date | Type | Department | Care Team | Description | +--------+ + + + + | 11/13/ | Hospital | [facility] | Jose Luis Lorenz MD | Pleural effusion; | | 2011 - | Encounter | [facility] | [address] | Hypoxia; Rheumatoid | | | | CARE FLOOR [address] | [place] [address] | arthritis ([facility]); | | 11/16/ | | [address] | [phone] | Dyspnea; SOB | | 2011 | | [place], [place] | | (shortness of | | | | [address] | | breath); Renal | | | | [phone] | | failure; Acidosis; | | | | | | ARF (acute renal | | | | | | failure) ([facility]); | | | | | | Anemia; Unspecified | | | | | | pleural effusion | +--------+ + + + + Social [...] documented as of this encounter Discharge Summaries Jagdeep Yip MD - 11/17/2011 1:04 PM PDTFormatting of this note might be different from th e original. Discharge Summaries by Jagdeep Yip MD at 11/17/11 1304 Author: Jagdeep Yip MD Service: Hospitalist Author Type: Physician Filed: 11/17/11 1311 Date of Service: 11/17/11 1304 Status: Signed Correspondence Renew Clerk: Jagdeep Yip MD (Physician) Related Notes: Original Note by Jagdeep Yip MD (Physician) filed at 11/17/11 1311 [facility] Service: Hospitalist Physician Discharge Summary Patient ID: Jessie Gutiérrez [id number] 46 y.o. 1965 Admit date: 11/14/2011 Discharge date and time: No discharge date for patient encounter. Admitting Physician: Jose Luis Lorenz MD Discharge Physician: Jagdeep Yip MD Consults: *Dr. Lay, Dr. sigala Primary Discharge Diagnoses: Acidosis [276.2] Rheumatoid arthritis [714.0] Renal failure [586] ARF (acute renal failure) [584.9] Dyspnea [786.09] SOB (shortness of breath) [786.05] Anemia [285.9] Pleural effusion [511.9] Secondary Discharge Diagnoses AND Other Medical History: Past Medical History Diagnosis Date Rheumatoid arthritis Past Surgical History Procedure Date Gall stone removal Tumor removal Neck Tonsillectomy Cholecystectomy Discharged Condition: Stable for D/c as dictated below. Significant Diagnostic Studies: X-ray Chest 2 View Frontal & Lateral 11/14/2011 JESSIE GUTIÉRREZ XR CHEST 2 VIEW FRONTAL AND LATERAL 11/14/2011 12:10 PM HISTORY: S hortness of breath. TECHNIQUE: Two views of the chest. FINDINGS: No prior comparison avail able. There are small bilateral pleural effusions, left larger than right. Heart size is p robably upper limits of normal. A probable calcified granulomas in the right lung base. Th ere is mild left lower lobe atelectasis or infiltrate adjacent to the pleural effusion. No evidence of pneumothorax. IMPRESSION: 1. Small bilateral pleural effusions, left larger th an right. 2. Mild left lower lobe infiltrate or atelectasis. 3. Old granulomatous disease. X-ray Chest 1 View 11/16/2011 JESSIE GUTIÉRREZ XR CHEST 1 VIEW HISTORY: 46 years. Female. Postthoracentesis. KAVIN HNIQUE: Single portable anterior view of the chest was obtained. COMPARISON: 11/14/2011 FIN DINGS: The heart is normal in size . Small left-sided pleural effusion has mildly improved f rom previous exam. Tiny right-sided pleural effusion. Low lung volumes. Mild pulmonary vascu lar congestion. No pneumothorax. IMPRESSION: 1. Small left-sided pleural effusion improved from prior exam. 2. Mild pulmonary vascular congestion. 3. Tiny right-sided pleural effus ion. Ultrasound Renal 11/16/2011 JESSIE GUTIÉRREZ US KIDNEYS AND BLADDER HISTORY: 46 years. Female. Abnormal lab cristina ues. TECHNIQUE: Sonographic evaluation the kidneys and bladder. COMPARISON: None. FINDIN GS: The right kidney measures 10.2 x 5.7 x 4.9 cm. The left kidney measures 12.3 x 5.3 x 6.2 cm. The kidneys have a normal cortical echotexture without hydronephrosis. Pre-void bladde r volume is 27 cc. The patient voided prior to the procedure. Bilateral ureteral jets are vi sualized. IMPRESSION: 1. Negative for hydronephrosis. Ultrasound Guidance For Thoracentesis 11/16/2011 JESSIE GUTIÉRREZ US GUIDANCE FOR THORACENTESIS HISTORY: Female.46 years. Pleural ef fusion TECHNIQUE: Limited sonographic evaluation of the chest performed for ultrasound guid ed thoracentesis. FINDINGS: There is a left pleural effusion which was marked for ultrasoun d guided thoracentesis performed by Dr. Sigala. The radiologist was not present for the gerber ng or procedure portion of the examination. IMPRESSION: 1. Ultrasound guided thoracentesi s, as described above. Ct Chest High Resolution 11/15/2011 JESSIE GUTIÉRREZ [address] CHEST HIGH RESOLUTION 11/15/2011 8:03 AM HISTORY: History of rheumatoid lung, concern for tuberculosis COMPARISON: None TECHNIQ UE: CT scan of the chest without contrast. High resolution chest CT. 5 mm thick helically acquired axial images were obtained of the chest. 1 mm thick axial images were obtained for the high-resolution portion with inspiration, expiration in supine and prone position. FIN DINGS: The visualized thyroid gland is normal in appearance. No cervical adenopathy is demo nstrated. A prominent right paratracheal lymph node is present measuring 17.8-mm in length on image 19 series 5. A prominent subcarinal lymph node measures 16.8-mm in length on image 26. The heart is normal in size. No pericardial effusion is demonstrated. The trachea an d esophagus are intact and normal in appearance. Bilateral small pleural effusions are pres ent. No pneumothorax is demonstrated. Some scarring or atelectasis is noted laterally in t he right upper lobe. No cavitary process is demonstrated. No focal airspace consolidation is present. Patchy atelectasis of the left lower lobe is demonstrated due to compression re lated to the pleural effusion. No evidence of interstitial fibrosis. No evidence of air tr apping. No aggressive lytic or blastic lesions are present. No acute rib fractures are n oted. The liver is smooth in contour. The gallbladder is surgically absent. The adrenals and spleen are normal in appearance. The visualized pancreas is normal. No free air is dem onstrated. IMPRESSION: 1. No evidence of primary or reactivation tuberculosis. 2. There are bilateral small pleural effusions demonstrated of unclear etiology. This may be a pote ntial manifestation of rheumatoid lung disease. 3. Scattered mildly prominent mediastinal l ymph nodes which may be related to underlying history of rheumatoid lung disease as well. E lectronically signed by Star Gonzales MD on 11/15/2011 8:29 AM Echo Cardiac Adult Complete 11/15/2011 Patient Name: JESSIE GUTIÉRREZ Date of : 1965 P erforming Physician: Nathanael Magdaleno MD INDICATIONS CHF TB ISOLATION CONCLUSIONS 1. Overall left ventricular systolic function is normal with, an EF between 65 - 70 %. 2. There is mild con centric left ventricular hypertrophy. 3. Mild tricuspid regurgitation present. 4. Right vent ricular systolic pressure (pulmonary artery systolic pressure) is normal at < 35 mmHg. 5. Th ere is no pericardial effusion. FINDINGS -------- ECG rhythm: Sinus rhythm. Study: A 2-dime nsional transthoracic echocardiogram with m-mode, spectral and color flow Doppler was perfom ed. Study: This was a technically adequate study with suboptimal parasternal views. Left Ve ntricle: Overall left ventricular systolic function is normal with, an EF between 65 - 70 %. Left Ventricle: There is mild concentric left ventricular hypertrophy. Right Ventricle: Th e right ventricle is mildly enlarged measuring between 3.4 - 3.7 cm. Left Atrium: The left a trium is normal in size. Right Atrium: The right atrium is mildly enlarged. Aortic Valve: Th e aortic valve is trileaflet, and appears anatomically normal. No aortic stenosis or regurgi tation. Mitral Valve: The mitral valve is normal. Mitral Valve: There is trace mitral regur gitation. Tricuspid Valve: The tricuspid valve appears structurally normal. Tricuspid Valve : Mild tricuspid regurgitation present. Tricuspid Valve: Right ventricular systolic pressur e (pulmonary artery systolic pressure) is normal at < 35 mmHg. Pulmonic Valve: The pulmonic valve was not well visualized. Pericardium: There is no pericardial effusion. IVC/Hepatic Ve ins: The IVC is normal size (1.5-2.5cm) and collapses >50% with sniff, consistent with centr al venous pressures of 5-10mmHg. Thrombus: No clot visualized MEASUREMENTS IV C: 1.69 cm LA Major: 5.71 cm EDV(Teich): 80.40 ml IVSd: 1.24 cm LVIDd: 4.24 cm LVP Wd: 1.03 cm LVOT Diam: 1.76 cm %FS: 36.23 % EF(Teich): 66.27 % ESV(Teich): 27.11 m l IVSs: 1.25 cm LVIDs: 2.70 cm LVPWs: 1.89 cm SV(Teich): 53.28 ml RA Major: 5.43 c m RVIDd: 3.67 cm LVEF MOD A4C: 68.09 % SV MOD A4C: 58.69 ml LVEDV MOD A4C: 86.19 ml LVLd A4C: 7.16 cm LVESV MOD A4C: 27.49 ml LVLs A4C: 6.04 cm LAESV(A-L): 65.33 ml LAE SV Index (A-L): 34.56 ml/m2 LAAs A2C: 20.29 cm2 LAESV A-L A2C: 62.80 ml LALs A2C: 5. 56 cm LAAs A4C: 21.11 cm2 LAESV A-L A4C: 67.11 ml LALs A4C: 5.63 cm Ao Diam: 2.95 cm AV Cusp: 1.86 cm LA Diam: 3.61 cm LA/Ao: 1.22 IVC diameter: 1.48 cm IVC collapse: 0.63 cm IVC % collapse: 55.65 % HR: 74.65 BPM AV maxP.05 mmHg AV meanP.93 mmHg AV Vmax: 2.00 m/s AV Vmean: 1.33 m/s AV VTI: 43.48 cm JAQUELIN Vmax: 1.52 cm2 JAQUELIN ( VTI): 1.53 cm2 LVCI Dopp: 2.55 l/minm2 LVCO Dopp: 4.83 l/min HR: 72.29 BPM LVOT maxP .28 mmHg LVOT meanP.03 mmHg LVSI Dopp: 35.35 ml/m2 LVSV Dopp: 66.82 ml LVOT Vmax: 1.25 m/s LVOT Vmean: 0.80 m/s LVOT VTI: 27.35 cm MCO: 410.35 ms MV A [place]: 0. 73 m/s MV DecT: 198.95 ms MV E [place]: 1.29 m/s MV E/A Ratio: 1.76 MV PHT: 53.96 ms MV A By PHT: 4.07 cm2 MV A Dur: 110.90 ms MV maxP.19 mmHg MV meanP.00 mmHg MV V max: 1.43 m/s MV Vmean: 0.78 m/s MV VTI: 32.41 cm MVA (VTI): 2.06 cm2 Septal e': 0 .08 m/s Septal E/e': 14.90 Lateral e': 0.10 m/s Lateral E/e': 12.61 P Vein A: 0.26 m/s P Vein A Dur: 85.02 ms P Vein D: 0.44 m/s P Vein S/D Ratio: 1.76 P Vein S: 0.7 8 m/s HR: 69.06 BPM PV maxP.25 mmHg PV meanP.56 mmHg PV Vmax: 0.90 m/s PV Vm alfonzo: 0.58 m/s PV VTI: 21.46 cm RAP: 5 mmHg RVSP: 34.84 mmHg TR maxP.84 mmHg T R Vmax: 2.73 m/s TV A [place]: 0.59 m/s TV Dec [place]: 3.75 m/s2 TV Dec Time: 209.78 ms T V E [place]: 0.78 m/s TV E/A Ratio: 1.32 Fuel Cell Binder: MELODY Authenticated by: Nathanael Magdaleno MD Report Date/Time: 11-15-2011 15:50:41 HPI and Hospital Course: *The patient is a 46-year-old female with a past medical history o f rheumatoid arthritis who presented with shortness of breath. Initially she was in [facility] where she was found to have right-sided pleural effusion which was drained. It was thought to be slightly transudative with significant RBCs. She was initially treated with antibiotics vancomycin and Zosyn. She was also found to be in acute kidney injury with a creatinine of 2, and then later on she was discharged on oral antibiotics. When she went home, she started feeling more short of breath and that is why she came back to [facility] ER. Here she was found to have a new left pleural effusion and significant difficulty breathing. She was admitted to the hospitalist service. She was not started on any antibiotics. Dr. Sigala was consulted from pulmonology and after further workup she was found to have rheumatoid arthritis factor of 214 which was very high. It was thought that most likely her effusion was due to rheumatoid arthritis flare up. She had a CAT scan of the chest high resolution which did not show any pneumonia or any pathology. She had a repeat pleural tap on the left side by Dr. Sigala which did not show any exudative effusion, and an echocardiogram was within normal range. The patient was treated with hydroxychloroquine 200 mg twice a day, so double the dose; and the prednisone was also increased. And she was also treated with prednisone 20 mg daily after which she showed significant improvement in her breathing status. Next but her kidney function did have some abnormality and her creatinine stayed up to 2.1. Dr. Lay was consulted who thought that most likely it could be ATN, and she was given some IV fluids with which the patient showed significant improvement of her creatinine from 2.2 to 1.7. She was told that she does have some kidney damage but presently the patient is stable for discharge. Plan as below. 1. For pleural effusion and rheumatoid arthritis, she is to continue with prednisone 20 mg daily and Plaquenil again back to 200 mg daily. She is supposed to follow up with her it specialist within 1 week to see if she needs any increased medications. Then she will follow up with Dr. Sigala later on after that. Until that time continue with the same medication prednisone as of now. 2. Acute kidney injury. It has improved significantly. Her workup has been sent. Most of it has been pending but vasculitis as her C3 and C4 are negative for now or within normal range. She will follow with Dr. Lay within 2 weeks with renal labs after 1 week. She is supposed to get her labs with her it specialist. At that same time she will get her labs and then fax those to Dr. Lay's office. 3. All of her questions have been answered. The patient voiced understanding of the plan of care and will follow up with her PMD, it specialist, Dr. Sigala, and also with Dr. Lay as directed. Cytology is still pending but will follow up with further appointments. Discharge Vitals: Filed Vitals: 11/16/11 2337 11/17/11 0334 11/17/11 0712 11/17/11 1147 BP: 140/82 140/61 149/70 133/63 Pulse: 75 67 73 75 Temp: 98.1 F (36.7 C) 98.4 F (36.9 C) 98.6 F (37 C) 98.3 F (36.8 C) TempSrc: Oral Oral Oral Oral Resp: 17 18 18 Height: Weight: 84.3 kg (185 lb 13.6 oz) SpO2: 96% 96% 96% 97% Discharge Exam: General: Well nourished. Psych: Alert and oriented x 3. Calm, cooperative. Cardiovascular: Regular rate and rhythm, no murmurs, no thrills. Normal PMI. Respiratory: Clear to auscultation, no wheezing or crackles, breathing non labored. Gastrointestinal: Soft, non-tender, non-distended, positive bowel sounds. No HSM. Musculoskeletal: No edema in bilateral lower extremities. No joint swelling. Skin: Warm and dry, no rashes. Neck: No JVD, Trachea midline. Neurological: Non focal. Motor grossly intact. LABS: CBC: Lab Results Component Value Date WBC 11.4* 11/17/2011 RBC 4.38 11/17/2011 HGB 9.8* 11/17/2011 HCT 31.2* 11/17/2011 MCV 71.3* 11/17/2011 MCH 22.3* 11/17/2011 MCHC 31.3* 11/17/2011 RDW 56.9* 11/17/2011 PLT 450* 11/17/2011 MPV 8.2 11/17/2011 DIFFTYPE AUTOMATED 11/17/2011 CMP: Lab Results Component Value Date NA 142 11/17/2011 K 3.8 11/17/2011 CL 110* 11/17/2011 CO2 22* 11/17/2011 ANIONGAP 14 11/17/2011 GLUF 86 11/17/2011 BUN 22 11/17/2011 CREATININE 1.79* 11/17/2011 BCR 8 11/16/2011 CA 7.8* 11/17/2011 PROT 8.0 11/14/2011 ALB 2.6* 11/17/2011 GLOB 5.3* 11/14/2011 BILITOT 0.3 11/14/2011 ALP 111 11/14/2011 AST 12 11/14/2011 ALT 31 11/14/2011 EGFR 32* 11/17/2011 Albumin: Lab Results Component Value Date ALB 2.6* 11/17/2011 Magnesium: Lab Results Component Value Date MG 1.9 11/17/2011 Phosphorus: Lab Results Component Value Date PHOS 4.5 11/17/2011 PT/INR: Lab Results Component Value Date INR 1.2 11/14/2011 Troponin: No results found for this basename: TROPONINI Last 3 Troponin: No results found for this basename: TROPONINI TSH: No results found for this basename: TSH, TSHNEO, TSHREFLEX Disposition: Patient Instructions: Current Discharge Medication List START taking these medications Details predniSONE (DELTASONE) 20 MG tablet Take 1 tablet by mouth daily with breakfast. Qty: 30 tablet, Refills: 0 CONTINUE these medications which have NOT CHANGED Details hydroxychloroquine (PLAQUENIL) 200 MG tablet Take by mouth daily. Activity: activity as tolerated Diet: Cardiac Renal Diet There are no Patient Instructions on file for this visit. Follow-up with PMD and other physicians as directed. Signed: Jagdeep Yip 11/17/2011 1:04 PM documented in this encou nter Progress Notes Erik Lay - 11/17/2011 2:12 PM PDT Progress Notes by Erik Lay MD at 11/17/11 1412 Author: Erik Lay MD Service: Nephrology Author Type: Physician Filed: 11/17/11 1420 Date of Service: 11/17/111411 Status: Signed Correspondence Renew Clerk: Erik Lay MD (Physician) [facility] Service: NEPHROLOGY progress Note Jessie Gutiérrez 46 y.o. [id number] female NATTY STEEN DO, Hospital Day: LOS: 3 days Date of Admission: 11/17/2011 HISTORY OF PRESENT ILLNESS A 46-year-old female with past medical history of rheumatoid arthritis,morbid obesity, squa mous cell carcinoma, who was recently discharged from [facility] in [facility] she was admitted with shortness of breath. She has been on tumor necrosis factor Humira and Plaquenil. She developed a cough with cold approximately November 07, 2011. She had been alberto ving pleuritic chest pain at that time with deep inspiration. She went to [facility] where she was noted to have a large right-sided pleural effusion thought to be due to rhe umatoid arthritis. At that time, her white count was 11. Her kidney function was close to 2, and she had a fever of 101.3 at that time. She was started on broad-spectrum antibiotics with Zosyn. They did a pleural tap and about 1.15 L of jefe fluid was drained. Analysis of the fluid showed exudative characteristics. Over there, she had ultrasound retroperitoneal that showed mild echogenicity in the kidneys due to renal failure without any hydronephrosis. She also had CT scan of the chest, which w as interpreted as a right-sided pleural effusion with atelectasis with mediastinal lymph nod es increased in number, lymph node in the bilateral intramammary chains and increased number in size. She was discharged on ciprofloxacin, but she could not sleep overnight. She came to [facility]. She says she has been having increasing shortness of breath along with orthopnea and PND, having mild chest pain as well which is 3 out of 10, non radiating and aggravated by deep inspiration. she was found to have a left-sided pleural effusion at t his time ALONG WITH WORSENING RENAL FAILURE Patient seen for evaluation and management of ARF ONSET ACUTE severity MODERATE Associated with fluid electrolyte acid base imbalances RA NOT ON HUMIRA DUE TO SKIN CANCER NOW Used methotrexate in past by dr castillo in [place], or [facility] +ve recent Antibiotic use. Pateint seen and examined , wants to go home today Says feel Better, improving renal function Denies cp, sob, nausea, vomiting, diarrhea, fever, headache, rash, cough, dizziness Past Medical History Diagnosis Date Rheumatoid arthritis Past Surgical History Procedure Date Gall stone removal Tumor removal Neck Tonsillectomy Cholecystectomy Prescriptions prior to admission Medication Sig Dispense Refill hydroxychloroquine (PLAQUENIL) 200 MG tablet Take by mouth daily. No Known Allergies Family History Problem Relation Age of Onset [...] Use: No Drug Use: No Sexually Active: Other Topics Concern Not on file Social History Narrative Lives with her boyfriendNo [facility] Neetumograbiel quit 2 months 1/2 ppd for 15 yearsetoh very occasionallyDrugs noneFather might have kidney problemsMother lives in [place] has dm-2 DAD AND GRAND MA BOTH HAD RA Scheduled Medications hydroxychloroquine 200 mg Oral Daily lidocaine buffered 1% 0.5 mL Subcutaneous Once predniSONE 20 mg Oral Daily with breakfast DISCONTD: enoxaparin 40 mg Subcutaneous Q24H Continuous Infusions sodium bicarbonate drip 100 mEq/1000 mL 75 mL/hr at 11/17/11 0613 PRN Medications albuterol, hydrALAZINE, labetalol, ondansetron, ondansetron, polyethylene glycol, sodium ch loride, zolpidem Allergy: No Known Allergies OBJECTIVE Vital Signs: BP 133/63 | Pulse 75 | Temp(Src) 98.3 F (36.8 C) (Oral) | Resp 18 | Ht 1.575 m (5' 2.01 ") | Wt 84.3 kg (185 lb 13.6 oz) | BMI 33.98 kg/m2 | SpO2 97% | ? Unknown I&O Detailed Table: I/O last 3 completed shifts: In: 4668 [P.O.:3700; I.V.:968] Out: 700 [Other:700] Weight change: 0.2 kg (7.1 oz) ROS: Per hpi. Examination: APPEARANCE: The patient is a pleasant sitting in no apparent distress. VITALS: Reviewed as listed. HEAD: NC/AT. EYES: EOMI. Non-icteric sclera. ENT: No oropharyngeal erythema. Buccal mucosa is moist. No gross ear or nasal prob lems noted. NECK: Supple. No raised JVD or thyromegaly. LUNGS: Good a/e bilaterally. HEART: S1, S2, no pericardial rub noted. ABDOMEN: Full, soft, no tenderness. Bowel sounds are present. EXTREMITIES: no pedal edema noted. No cyanosis or clubbing. SKIN: Warm to touch. No rash or ecchymosis noted. NEUROLOGIC: No gross focal motor deficit noted. PSYCH: The patient is alert and oriented x 3, mood and affect looks ok, memory seems to be intact. BACK: no CVA tenderness noted LABS: Recent Results (from the past 24 hour(s)) SODIUM, URINE, RANDOM Collection Time 11/16/11 2:50 PM Component Value Range UR SODIUM,RANDOM 79 (*) 90 - 104 (mmol/L) CREATININE, URINE, RANDOM Collection Time 11/16/11 2:50 PM Component Value Range UR CREAT,RANDOM 47.9 PROTEIN, URINE, RANDOM Collection Time 11/16/11 2:50 PM Component Value Range UR PROTEIN,RANDOM 47 URINALYSIS W/MICRO (REFLEX TO CULTURE) Collection Time 11/16/11 2:51 PM Component Value Range COLOR YELLOW CLARITY CLEAR SPECIFIC GRAVITY,URINE 1.010 1.001 - 1.035 LEUKOCYTE ESTERASE NEGATIVE NEGATIVE NITRITE NEGATIVE NEGATIVE UROBILINOGEN 0.2 <1.1 (mg/dL) PROTEIN NEGATIVE NEGATIVE (mg/dL) PH,URINE 6.0 4.6 - 8.0 BLOOD TRACE (*) NEGATIVE KETONES NEGATIVE NEGATIVE (mg/dL) BILIRUBIN NEGATIVE NEGATIVE GLUCOSE NEGATIVE NEGATIVE (mg/dL) WBC 0-2 0 - 5 (/hpf) RBC 0-2 0 - 2 (/hpf) EPITHELIAL 6-10 BACTERIA 1+ (*) NONE SEEN URINE EOSINOPHILS Collection Time 11/16/11 2:51 PM Component Value Range URINE EOSINOPHILS NEGATIVE <1 (%) IRON AND TIBC Collection Time 11/17/11 4:20 AM Component Value Range IRON 17 (*) 30 - 180 (ug/dL) TIBC 337.12 260 - 490 (ug/dL) IRON % SAT 5 (*) 15 - 50 (%) FERRITIN Collection Time 11/17/11 4:20 AM Component Value Range FERRITIN 24 6 - 170 (ng/mL) FOLATE Collection Time 11/17/11 4:20 AM Component Value Range FOLATE 7.7 >5.4 (ng/mL) C3 AND C4 COMPLEMENT Collection Time 11/17/11 4:20 AM Component Value Range COMPLEMENT C3 106 90 - 180 (mg/dL) COMPLEMENT C4 21.3 10 - 40 (mg/dL) CBC W/AUTO DIFF (REFLEX TO MANUAL) Collection Time 11/17/11 4:20 AM Component Value Range WBC 11.4 (*) 3.8 - 11.0 (K/uL) RBC 4.38 3.70 - 5.10 (M/uL) HGB 9.8 (*) 11.3 - 15.5 (g/dL) HCT 31.2 (*) 34.0 - 46.0 (%) MCV 71.3 (*) 80.0 - 100.0 (fl) MCH 22.3 (*) 27.0 - 34.0 (pg) MCHC 31.3 (*) 32.0 - 35.5 (g/dL) RDW SD 56.9 (*) 37 - 53 (fl) PLT 450 (*) 150 - 400 (K/uL) MPV 8.2 DIFF TYPE AUTOMATED NEUTROPHILS 74.3 40 - 80 (%) LYMPHOCYTES 14.1 (*) 15 - 45 (%) MONOCYTES 9.5 0 - 12 (%) EOSINOPHILS 1.1 0 - 7 (%) BASOPHILS 1.0 0 - 2 (%) NEUTROPHILS ABS 8.4 (*) 2.0 - 7.3 (K/uL) LYMPHOCYTES ABS 1.6 1.0 - 3.4 (K/uL) MONOCYTES ABS 1.1 (*) 0 - 0.8 (K/uL) EOSINOPHILS ABS 0.1 0 - 0.5 (K/uL) BASOPHILS ABS 0.1 0 - 0.1 (K/uL) Platelet Estimate ADEQUATE MORPHOLOGY 1+ MAGNESIUM Collection Time 11/17/11 4:20 AM Component Value Range MAGNESIUM 1.9 1.7 - 2.4 (mg/dL) RENAL FUNCTION PANEL Collection Time 11/17/11 4:20 AM Component Value Range SODIUM 142 135 - 143 (mmol/L) POTASSIUM 3.8 3.5 - 4.9 (mmol/L) CHLORIDE 110 (*) 99 - 109 (mmol/L) CO2 22 (*) 23 - 32 (mmol/L) ANION GAP AGAP 14 5 - 20 (mmol/L) GLUCOSE 86 65 - 99 (mg/dL) BUN 22 8 - 25 (mg/dL) CREATININE 1.79 (*) 0.50 - 1.00 (mg/dL) CALCIUM 7.8 (*) 8.5 - 10.2 (mg/dL) Albumin 2.6 (*) 3.6 - 5.0 (g/dL) PHOSPHORUS 4.5 2.3 - 4.8 (mg/dL) EGFR 32 (*) >60 (mL/min/1.73m2) IMAGING: X-ray Chest 2 View Frontal & Lateral 11/14/2011 JESSIE GUTIÉRREZ XR CHEST 2 VIEW FRONTAL AND LATERAL 11/14/2011 12:10 PM HISTORY: S hortness of breath. TECHNIQUE: Two views of the chest. FINDINGS: No prior comparison avail able. There are small bilateral pleural effusions, left larger than right. Heart size is p robably upper limits of normal. A probable calcified granulomas in the right lung base. Th ere is mild left lower lobe atelectasis or infiltrate adjacent to the pleural effusion. No evidence of pneumothorax. IMPRESSION: 1. Small bilateral pleural effusions, left larger th an right. 2. Mild left lower lobe infiltrate or atelectasis. 3. Old granulomatous disease. 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 High resolution chest CT. 5 mm thick helically acquired axial images were obtained of the chest. 1 mm thick axial images were obtained for the high-resolution portion with inspiration, expiration in supine and prone position. FIN DINGS: The visualized thyroid gland is normal in appearance. No cervical adenopathy is demo nstrated. A prominent right paratracheal lymph node is present measuring 17.8-mm in length on image 19 series 5. A prominent subcarinal lymph node measures 16.8-mm in length on image 26. The heart is normal in size. No pericardial effusion is demonstrated. The trachea an d esophagus are intact and normal in appearance. Bilateral small pleural effusions are pres ent. No pneumothorax is demonstrated. Some scarring or atelectasis is noted laterally in t he right upper lobe. No cavitary process is demonstrated. No focal airspace consolidation is present. Patchy atelectasis of the left lower lobe is demonstrated due to compression re lated to the pleural effusion. No evidence of interstitial fibrosis. No evidence of air tr apping. No aggressive lytic or blastic lesions are present. No acute rib fractures are n oted. The liver is smooth in contour. The gallbladder is surgically absent. The adrenals and spleen are normal in appearance. The visualized pancreas is normal. No free air is dem onstrated. IMPRESSION: 1. No evidence of primary or reactivation tuberculosis. 2. There are bilateral small pleural effusions demonstrated of unclear etiology. This may be a pote ntial manifestation of rheumatoid lung disease. 3. Scattered mildly prominent mediastinal l ymph nodes which may be related to underlying history of rheumatoid lung disease as well. E lectronically signed by Star Gonzales MD on 11/15/2011 8:29 AM Echo Cardiac Adult Complete 11/15/2011 Patient Name: JESSIE GUTIÉRREZ Date of : 1965 P erforming Physician: Nathanael Magdaleno MD INDICATIONS CHF TB ISOLATION CONCLUSIONS 1. Overall left ventricular systolic function is normal with, an EF between 65 - 70 %. 2. There is mild con centric left ventricular hypertrophy. 3. Mild tricuspid regurgitation present. 4. Right vent ricular systolic pressure (pulmonary artery systolic pressure) is normal at < 35 mmHg. 5. Th ere is no pericardial effusion. FINDINGS -------- ECG rhythm: Sinus rhythm. Study: A 2-dime nsional transthoracic echocardiogram with m-mode, spectral and color flow Doppler was perfom ed. Study: This was a technically adequate study with suboptimal parasternal views. Left Ve ntricle: Overall left ventricular systolic function is normal with, an EF between 65 - 70 %. Left Ventricle: There is mild concentric left ventricular hypertrophy. Right Ventricle: Th e right ventricle is mildly enlarged measuring between 3.4 - 3.7 cm. Left Atrium: The left a trium is normal in size. Right Atrium: The right atrium is mildly enlarged. Aortic Valve: Th e aortic valve is trileaflet, and appears anatomically normal. No aortic stenosis or regurgi tation. Mitral Valve: The mitral valve is normal. Mitral Valve: There is trace mitral regur gitation. Tricuspid Valve: The tricuspid valve appears structurally normal. Tricuspid Valve : Mild tricuspid regurgitation present. Tricuspid Valve: Right ventricular systolic pressur e (pulmonary artery systolic pressure) is normal at < 35 mmHg. Pulmonic Valve: The pulmonic valve was not well visualized. Pericardium: There is no pericardial effusion. IVC/Hepatic Ve ins: The IVC is normal size (1.5-2.5cm) and collapses >50% with sniff, consistent with centr al venous pressures of 5-10mmHg. Thrombus: No clot visualized MEASUREMENTS IV C: 1.69 cm LA Major: 5.71 cm EDV(Teich): 80.40 ml IVSd: 1.24 cm LVIDd: 4.24 cm LVP Wd: 1.03 cm LVOT Diam: 1.76 cm %FS: 36.23 % EF(Teich): 66.27 % ESV(Teich): 27.11 m l IVSs: 1.25 cm LVIDs: 2.70 cm LVPWs: 1.89 cm SV(Teich): 53.28 ml RA Major: 5.43 c m RVIDd: 3.67 cm LVEF MOD A4C: 68.09 % SV MOD A4C: 58.69 ml LVEDV MOD A4C: 86.19 ml LVLd A4C: 7.16 cm LVESV MOD A4C: 27.49 ml LVLs A4C: 6.04 cm LAESV(A-L): 65.33 ml LAE SV Index (A-L): 34.56 ml/m2 LAAs A2C: 20.29 cm2 LAESV A-L A2C: 62.80 ml LALs A2C: 5. 56 cm LAAs A4C: 21.11 cm2 LAESV A-L A4C: 67.11 ml LALs A4C: 5.63 cm Ao Diam: 2.95 cm AV Cusp: 1.86 cm LA Diam: 3.61 cm LA/Ao: 1.22 IVC diameter: 1.48 cm IVC collapse: 0.63 cm IVC % collapse: 55.65 % HR: 74.65 BPM AV maxP.05 mmHg AV meanP.93 mmHg AV Vmax: 2.00 m/s AV Vmean: 1.33 m/s AV VTI: 43.48 cm JAQUELIN Vmax: 1.52 cm2 JAQUELIN ( VTI): 1.53 cm2 LVCI Dopp: 2.55 l/minm2 LVCO Dopp: 4.83 l/min HR: 72.29 BPM LVOT maxP .28 mmHg LVOT meanP.03 mmHg LVSI Dopp: 35.35 ml/m2 LVSV Dopp: 66.82 ml LVOT Vmax: 1.25 m/s LVOT Vmean: 0.80 m/s LVOT VTI: 27.35 cm MCO: 410.35 ms MV A [place]: 0. 73 m/s MV DecT: 198.95 ms MV E [place]: 1.29 m/s MV E/A Ratio: 1.76 MV PHT: 53.96 ms MV A By PHT: 4.07 cm2 MV A Dur: 110.90 ms MV maxP.19 mmHg MV meanP.00 mmHg MV V max: 1.43 m/s MV Vmean: 0.78 m/s MV VTI: 32.41 cm MVA (VTI): 2.06 cm2 Septal e': 0 .08 m/s Septal E/e': 14.90 Lateral e': 0.10 m/s Lateral E/e': 12.61 P Vein A: 0.26 m/s P Vein A Dur: 85.02 ms P Vein D: 0.44 m/s P Vein S/D Ratio: 1.76 P Vein S: 0.7 8 m/s HR: 69.06 BPM PV maxP.25 mmHg PV meanP.56 mmHg PV Vmax: 0.90 m/s PV Vm alfonzo: 0.58 m/s PV VTI: 21.46 cm RAP: 5 mmHg RVSP: 34.84 mmHg TR maxP.84 mmHg T R Vmax: 2.73 m/s TV A [place]: 0.59 m/s TV Dec [place]: 3.75 m/s2 TV Dec Time: 209.78 ms T V E [place]: 0.78 m/s TV E/A Ratio: 1.32 Fuel Cell Binder: MELODY Authenticated by: Nathanael Magdaleno MD Report Date/Time: 11-15-2011 15:50:41 US KIDNEYS AND BLADDER HISTORY: 46 years. Female. Abnormal lab values. TECHNIQUE: Sonographic evaluation the kidneys and bladder. COMPARISON: None. FINDINGS: The right kidney measures 10.2 x 5.7 x 4.9 cm. The left kidney measures 12.3 x 5.3 x 6.2 cm . The kidneys have a normal cortical echotexture without hydronephrosis. Pre-void bladder volume is 27 cc. The patient voided prior to the procedure. Bilateral uret eral jets are visualized. IMPRESSION: 1. Negative for hydronephrosis. Patient's old records and labs were reviewed in detail and summarized. PROBLEM LIST Principal Problem: *Unspecified pleural effusion Active Problems: SOB (shortness of breath) Hypoxia Anemia Acidosis ARF (acute renal failure) ASSESSMENT & PLAN ARF Slowly improving renal function LIKELY secondary to Renal hypoperfusion Urine eosinophils negative C3/c4 wnl Ruled out HYDRONEPHROSIS per us renal reviewed R.O RENAL INVOLVEMENT WITH RHEUMATOID/ PULMONARY RENAL SYNDROME Urine studies reviewed Strict I & O, Daily weights Renal diet AVOID NSAIDS/ CAMPBELL-2 INHIBITORS AVOID NEPHROTOXIC MEDS INCLUDING AMINOGLYCOSIDES/ IV CONTRAST Reduce Hydroxychloroquine back to 200 mg daily because of renal failure BY DR SIGALA ACIDOSIS Improved on NAHCO3 DRIP ANEMIA Iron def CHECKed IRON PANEL iron sat 5 % PLEURAL EFFUSIONS PER DR SIGALA SEEMS LIKELY SECONDARY TO R.A ON PREDNISONE BY DR JOVON Osorio severe CASE DISCUSSED IN DETAIL WITH PATIENT/ FAMILY/HOSPITALIST/ DR SIGALA, ANSWERS ALL QUESTIONS IN DETAIL, VERBALIZES UNDERSTANDING F/u as out pt in 2 week with repeat labs for f/u of ARF, wants to go home today ERIK LAY MD 11/17/2011 NATTY STEEN DO, DO TanAnthony MD - 11/17/2011 12:32 PM PDT Progress Notes by Anthony Sigala MD at 11/17/11 1232 Author: Anthony Sigala MD Service: Pulmonology Author Type: Physician Filed: 11/17/11 7232 Date of Service: 11/17/11 1232 Status: Signed Correspondence Renew Clerk: Anthony Sigala MD (Physician) [facility] Service: Pulmonology Progress Note Hospital Day: LOS: 3 days Post-Op Day: * No surgery found * SUBJECTIVE Patient Summary: Events Overnight: On IVF infusion for hydration. Scheduled Medications hydroxychloroquine 200 mg Oral Daily lidocaine buffered 1% 0.5 mL Subcutaneous Once predniSONE 20 mg Oral Daily with breakfast DISCONTD: enoxaparin 40 mg Subcutaneous Q24H Continuous Infusions sodium bicarbonate drip 100 mEq/1000 mL 75 mL/hr at 11/17/11 0613 PRN Medications albuterol, hydrALAZINE, labetalol, ondansetron, ondansetron, polyethylene glycol, sodium ch loride, zolpidem OBJECTIVE Vital Signs: BP 133/63 | Pulse 75 | Temp(Src) 98.3 F (36.8 C) (Oral) | Resp 18 | Ht 1.575 m (5' 2.01 ") | Wt 84.3 kg (185 lb 13.6 oz) | BMI 33.98 kg/m2 | SpO2 97% | ? Unknown Intake/Output Summary (Last 24 hours) at 11/17/11 1233 Last data filed at 11/17/11 1147 Gross per 24 hour Intake 3338 ml Output 0 ml Net 3338 ml Physical Exam Constitutional: She is oriented to person, place, and time. She appears well-developed and well-nourished. No distress. HENT: Head: Normocephalic and atraumatic. Mouth/Throat: Oropharynx is clear and moist. No oropharyngeal exudate. Eyes: Conjunctivae are normal. [...] has no rales. She exhibits no tenderness. Abdominal: Soft. Bowel sounds are normal. She exhibits no distension and no mass. There is no tenderness. There is no rebound and no guarding. Musculoskeletal: Normal range of motion. She exhibits no edema and no tenderness. Lymphadenopathy: She has no cervical adenopathy. Neurological: She is alert and oriented to person, place, and time. She has normal reflexes . Skin: She is not diaphoretic. DATA CBC: Lab Results Component Value Date WBC 11.4* 11/17/2011 RBC 4.38 11/17/2011 HGB 9.8* 11/17/2011 HCT 31.2* 11/17/2011 MCV 71.3* 11/17/2011 MCH 22.3* 11/17/2011 MCHC 31.3* 11/17/2011 RDW 56.9* 11/17/2011 PLT 450* 11/17/2011 MPV 8.2 11/17/2011 DIFFTYPE AUTOMATED 11/17/2011 CMP: Lab Results Component Value Date NA 142 11/17/2011 K 3.8 11/17/2011 CL 110* 11/17/2011 CO2 22* 11/17/2011 ANIONGAP 14 11/17/2011 GLUF 86 11/17/2011 BUN 22 11/17/2011 CREATININE 1.79* 11/17/2011 BCR 8 11/16/2011 CA 7.8* 11/17/2011 PROT 8.0 11/14/2011 ALB 2.6* 11/17/2011 GLOB 5.3* 11/14/2011 BILITOT 0.3 11/14/2011 ALP 111 11/14/2011 AST 12 11/14/2011 ALT 31 11/14/2011 EGFR 32* 11/17/2011 Results for JESSIE GUTIÉRREZ ( ) as of 11/17/2011 12:33 Ref. Range 11/16/2011 14:50 11/16/2011 14:51 COLOR No range found YELLOW CLARITY No range found CLEAR GLUCOSE Latest Range: NEGATIVE mg/dL NEGATIVE BLOOD Latest Range: NEGATIVE TRACE (A) NITRITE Latest Range: NEGATIVE NEGATIVE LEUKOCYTE ESTERASE Latest Range: NEGATIVE NEGATIVE PH,URINE Latest Range: 4.6-8.0 6.0 PROTEIN Latest Range: NEGATIVE mg/dL NEGATIVE BILIRUBIN Latest Range: NEGATIVE NEGATIVE UROBILINOGEN Latest Range: <1.1 mg/dL 0.2 RBC Latest Range: 0-2 /hpf 0-2 WBC Latest Range: 0-5 /hpf 0-2 BACTERIA Latest Range: NONE SEEN 1+ (A) UR CREAT,RANDOM No range found 47.9 UR PROTEIN,RANDOM No range found 47 EPITHELIAL No range found 6-10 UR SODIUM,RANDOM Latest Range: 90-104 mmol/L 79 (L) Results for JESSEI GUTIÉRREZ ( ) as of 11/17/2011 12:48 Ref. Range 11/16/2011 11:54 11/16/2011 11:58 11/16/2011 12:00 Lymphs, CSF No range found 70 MONOCYTES/MACROPHAGES No range found 10 Eosinophils, CSF No range found 2 APPEARANCE No range found CLOUDY COLOR No range found RED FLUID GLUCOSE No range found 113 Glucose, Fluid Type No range found PLEURAL FLUID FLUID LDH No range found 433 FLUID TOTAL PROTEIN No range found 4.8 FLUID PH No range found 7.32 FLUID TYPE No range found PLEURAL FLUID WBC'S No range found 9680 RBC'S No range found 71397 Neutrophil Count, Fluid No range found 18 PROBLEM LIST Principal Problem: *Unspecified pleural effusion Active Problems: SOB (shortness of breath) Hypoxia Anemia Acidosis ARF (acute renal failure) 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 I will sign off and follow patient as out patient, Code Status: Full Code ANTHONY SIGALA MD 11/17/2011 Jagdeep Morocho MD - 11/2011 3:36 PM PDT Progress Notes by Jagdeep Yip MD at 11/16/11 8560 Author: Jagdeep Yip MD Service: Hospitalist Author Type: Physician Filed: 11/16/11 1539 Date of Service: 11/16/11 1536 Status: Signed Correspondence Renew Clerk: Jagdeep Yip MD (Physician) [facility] Service: Hospitalist Progress Note Hospital Day: LOS: 2 days SUBJECTIVE Events Overnight: *Breathing much better. NO other complaints or fever. Scheduled Medications enoxaparin 40 mg Subcutaneous Q24H hydroxychloroquine 200 mg Oral Daily lidocaine 10 mL Other Once lidocaine buffered 1% 0.5 mL Subcutaneous Once predniSONE 20 mg Oral Daily with breakfast DISCONTD: enoxaparin 40 mg Subcutaneous Q24H DISCONTD: hydroxychloroquine 200 mg Oral Daily DISCONTD: hydroxychloroquine 200 mg Oral BID Continuous Infusions sodium bicarbonate drip 100 mEq/1000 mL Stopped (11/16/11 1932) PRN Medications albuterol, hydrALAZINE, labetalol, ondansetron, ondansetron, polyethylene glycol, sodium ch loride, zolpidem OBJECTIVE Vital Signs: BP 146/79 | Pulse 74 | Temp(Src) 98.3 F (36.8 C) (Oral) | Resp 18 | Ht 1.575 m (5' 2.01 ") | Wt 84.1 kg (185 lb 6.5 oz) | BMI 33.90 kg/m2 | SpO2 95% | ? Unknown Filed Vitals: 11/16/11 1230 11/16/11 1245 11/16/11 1300 11/16/11 1507 BP: 161/67 164/82 151/80 146/79 Pulse: 70 70 74 74 Temp: 98.3 F (36.8 C) TempSrc: Oral Resp: 18 Height: Weight: SpO2: 95% Intake/Output Summary (Last 24 hours) at 11/16/11 1536 Last data filed at 11/16/11 1507 Gross per 24 hour Intake 3750 ml Output 700 ml Net 3050 ml General: Well nourished. Psych: Alert and oriented x 3. Calm, cooperative. Cardiovascular: Regular rate and rhythm, no murmurs, no thrills. Normal PMI. Respiratory: Decreased BS b/l lower lobes. no wheezing or crackles, breathing somewhat labo red. Gastrointestinal: Soft, non-tender, non-distended, positive bowel sounds. No HSM. Musculoskeletal: No edema in bilateral lower extremities. No joint swelling. Skin: Warm and dry, no rashes. Neck: No JVD, Trachea midline. Neurological: Non focal. Motor grossly intact. DATA CBC: Lab Results Component Value Date WBC 9.9 11/16/2011 RBC 4.59 11/16/2011 HGB 10.1* 11/16/2011 HCT 32.5* 11/16/2011 MCV 70.8* 11/16/2011 MCH 22.0* 11/16/2011 MCHC 31.0* 11/16/2011 RDW 56.0* 11/16/2011 PLT 490* 11/16/2011 MPV 8.2 11/16/2011 DIFFTYPE AUTOMATED 11/16/2011 CMP: Lab Results Component Value Date NA 141 11/16/2011 K 3.6 11/16/2011 CL 110* 11/16/2011 CO2 19* 11/16/2011 ANIONGAP 15 11/16/2011 GLUF 177* 11/16/2011 BUN 17 11/16/2011 CREATININE 2.03* 11/16/2011 BCR 8 11/16/2011 CA 8.2* 11/16/2011 PROT 8.0 11/14/2011 ALB 2.7* 11/14/2011 GLOB 5.3* 11/14/2011 BILITOT 0.3 11/14/2011 ALP 111 11/14/2011 AST 12 11/14/2011 ALT 31 11/14/2011 EGFR 28* 11/16/2011 Magnesium: Lab Results Component Value Date MG 1.8 11/16/2011 Phosphorus: Lab Results Component Value Date PHOS 3.9 11/16/2011 PT/INR: Lab Results Component Value Date INR 1.2 11/14/2011 PTT: Lab Results Component Value Date APTT 35 11/14/2011 [APTT PROBLEM LIST Principal Problem: *Unspecified pleural effusion Active Problems: SOB (shortness of breath) Hypoxia Anemia Acidosis ARF (acute renal failure) ASSESSMENT/ PLAN 1. Pleural Effusion: Unclear etiology. Most likely due to RA. TTE and Ct chest here reviewe d. BNP 558. S/p repeat thoracocentesis today by Dr. Sigala 700 cc removed. Increased plaquanil to 200 mg B Id and c/w prednisone 20 mg daily. RA titre 214. Very high. 2. RA: C/w hydroxychloroquine and prednisone. Not on Rosalia. 3. CODEY: unclear baseline. Consulted Dr. Lay for possible RA vasculitis related CODEY. Starte d on fluids. Will f/u recs and creatinine. Telemetry: Not Required. Jasso: Not Required. DVT: On heparin/ lovenox SQ Disposition: Needs further work up as above. Code Status: Full Code Jagdeep Yip MD 11/16/20113:36 PM an, Anthony Lo MD - 11/2011 11:55 AM PDT Progress Notes by Anthony Sigala MD at 11/16/11 3917 Author: Anthony Sigala MD Service: Pulmonology Author Type: Physician Filed: 11/16/11 1213 Date of Service: 11/16/11 2324 Status: Signed Correspondence Renew Clerk: Anthony Sigala MD (Physician) [facility] Service: Pulmonology Progress Note Hospital Day: LOS: 2 days Post-Op Day: * No surgery found * SUBJECTIVE Patient Summary: Events Overnight: 2 sputums collected for AFB- pesults are pending. Scheduled Medications enoxaparin 40 mg Subcutaneous Q24H hydroxychloroquine 200 mg Oral Daily lidocaine lidocaine buffered 1% 0.5 mL Subcutaneous Once predniSONE 20 mg Oral Daily with breakfast DISCONTD: enoxaparin 40 mg Subcutaneous Q24H DISCONTD: hydroxychloroquine 200 mg Oral Daily DISCONTD: hydroxychloroquine 200 mg Oral BID Continuous Infusions PRN Medications albuterol, hydrALAZINE, labetalol, ondansetron, ondansetron, polyethylene glycol, sodium ch loride, zolpidem OBJECTIVE Vital Signs: BP 140/83 | Pulse 70 | Temp(Src) 98.1 F (36.7 C) (Oral) | Resp 18 | Ht 1.575 m (5' 2.01 ") | Wt 84.1 kg (185 lb 6.5 oz) | BMI 33.90 kg/m2 | SpO2 95% | ? Unknown I&O Last 3 Shifts: 11/13 1900 - 11/15 0659 In: 4000 [P.O.:4000] Out: - Physical Exam Constitutional: She appears well-developed. Mildly obese. HENT: Head: Normocephalic. Mouth/Throat: Oropharynx is clear and moist. No oropharyngeal exudate. Eyes: Conjunctivae are normal. [...] She exhibits no tenderness. Decreased breath sound bibasal. Abdominal: Soft. Bowel sounds are normal. She exhibits no distension and no mass. There is no tenderness. There is no rebound and no guarding. Musculoskeletal: Normal range of motion. She exhibits no edema and no tenderness. Lymphadenopathy: She has no cervical adenopathy. Skin: Skin is warm. No rash noted. No erythema. No pallor. DATA CBC: Lab Results Component Value Date WBC 9.9 11/16/2011 RBC 4.59 11/16/2011 HGB 10.1* 11/16/2011 HCT 32.5* 11/16/2011 MCV 70.8* 11/16/2011 MCH 22.0* 11/16/2011 MCHC 31.0* 11/16/2011 RDW 56.0* 11/16/2011 PLT 490* 11/16/2011 MPV 8.2 11/16/2011 DIFFTYPE AUTOMATED 11/16/2011 CMP: Lab Results Component Value Date NA 141 11/16/2011 K 3.6 11/16/2011 CL 110* 11/16/2011 CO2 19* 11/16/2011 ANIONGAP 15 11/16/2011 GLUF 177* 11/16/2011 BUN 17 11/16/2011 CREATININE 2.03* 11/16/2011 BCR 8 11/16/2011 CA 8.2* 11/16/2011 PROT 8.0 11/14/2011 ALB 2.7* 11/14/2011 GLOB 5.3* 11/14/2011 BILITOT 0.3 11/14/2011 ALP 111 11/14/2011 AST 12 11/14/2011 ALT 31 11/14/2011 EGFR 28* 11/16/2011 Sputum for AFB X2= Pending. One sputum for AFB is negat.danielle Pleural fluid from [facility] was not sent for culture. Result dated 11-09-11 was reviewed. PROBLEM LIST Principal Problem: *Unspecified pleural effusion Active Problems: SOB (shortness of breath) Hypoxia Renal failure (ARF), acute on chronic Anemia Acidosis Lymphocytic exudative effusion r/o rheumatoid lung with effusion, r/o infection as TB effus ion, r/o Fungal infection, r/o CHF r/o Exertional related Asthma. There was no evidence of m alignancy on cytology. H/O Rheumatoid arthritis on tumor necrosis factor for 3 years stopped in Apr 2011- presentl y on Hydroxychloroquine. H/O squamous cell skin cancer over right neck s/p excision PLAN Reduce Hydroxychloroquine back to 200 mg daily because of renal failure which is improving but not resolved yet. Renal failure may be realated to vasculitis. May need vasculitis work- up. Prednisone 20 mg daily may not be adequate for vasculitis. Consider increasing prednison e dose to 40 mg daily. Thoracentesis performed under US guidance. Total of 700 ml was drained. CXR is pending. For Home O2 evaluation today and possible discharge. I will follow patient as [facility]. D/W / Jagdeep. Code Status: Full Code ANTHONY SIGALA MD 11/16/2011 onversion Transactio n, Provider Unknown - 11/16/2011 9:51 AM PDT Progress Notes by Bridget Albert RRT at 11/16/11 0951 Author: Bridget Albert RRT Service: (none) Author Type: Registered Respiratory Therap ist Filed: 11/16/11 1000 Date of Service: 11/16/11950 Status: Signed Correspondence Renew Clerk: Bridget Albert RRT (Registered Respiratory Therapist) [facility] Department of Respiratory Group Home Oxygen Evaluation (Evaluation is valid for 48 hours once completed) Date: 11/16/2011 RT: BRIDGET ALBERT Time: 9:52 AM Phone: [phone] Physician ordering evaluation: Part One Part Two At rest and breathing room air is the patient s SpO2 88% or lower? With exercise and b reathing room air is the patient s SpO2 88% or lower? N IF NO N IF NO The patient does not qualify fo r home oxygen under Medicare/ Medicaid guidelines. Lowest observed SpO2: 96% Lowest observed SpO2: 96% IF YES IF YES Amount of Oxygen needed to keep SpO2 88% or higher at rest: Amount of Oxygen needed to keep SpO2 88% or higher with exercise: > SpO2: LPM: If >5LPM, SpO2 on 4LPM: SpO2: LPM: If >5LPM, SpO2 on 4LPM: Notes: Pt walked around room. HOME OXYGEN PROVIDER PREFERENCE PHONE FAX *NOTE* Provider must include liter flow, route of oxygen administration, frequency of use w ith duration of need in months on the prescription AND document patient s diagnosis. OXYGEN PRN IS NOT A VALID ORDER Physician Signature: Date: 11/16/2011 Time: 9:52 AM Errol Duran MD - 11/15/2011 4:39 PM PDTFormatting of this note might be different from the or iginal. Progress Notes by Anthony Sigala MD at 11/15/11 7649 Author: Anthony Sigala MD Service: Pulmonology Author Type: Physician Filed: 11/15/11 1704 Date of Service: 11/15/11 4178 Status: Signed Correspondence Renew Clerk: Anthony Sigala MD (Physician) [facility] Service: Pulmonology Progress Note Hospital Day: LOS: 1 day Post-Op Day: * No surgery found * SUBJECTIVE Patient Summary: Events Overnight: Still SOB on exertion. Scheduled Medications enoxaparin 40 mg Subcutaneous Q24H hydroxychloroquine 200 mg Oral Daily lidocaine buffered 1% 0.5 mL Subcutaneous Once pneumococcal vaccine 0.5 mL Intramuscular Once Immunization predniSONE 20 mg Oral Daily with breakfast DISCONTD: sodium chloride 3 mL Intravenous Q8H DISCONTD: sodium chloride 3 mL Intravenous Q8H Continuous Infusions PRN Medications albuterol, ondansetron, ondansetron, polyethylene glycol, sodium chloride, zolpidem OBJECTIVE Vital Signs: BP 183/97 | Pulse 75 | Temp(Src) 98.8 F (37.1 C) (Oral) | Resp 18 | Ht 1.575 m (5' 2.01 ") | Wt 88.451 kg (195 lb) | BMI 35.66 kg/m2 | SpO2 96% | ? Unknown I&O Last 3 Shifts: 11/12 1900 - 11/14 0659 In: 1100 [P.O.:1100] Out: - Physical Exam Constitutional: She appears well-developed and well-nourished. No distress. HENT: Head: Normocephalic. Mouth/Throat: Oropharynx is clear and moist. No oropharyngeal exudate. Eyes: Conjunctivae are normal. [...] She exhibits no tenderness. Decreased breath sound bibasal. Abdominal: Soft. Bowel sounds are normal. She exhibits no distension and no mass. There is no tenderness. There is no rebound and no guarding. Musculoskeletal: Normal range of motion. She exhibits no edema and no tenderness. Lymphadenopathy: She has no cervical adenopathy. Skin: Skin is warm. No rash noted. She is not diaphoretic. No erythema. No pallor. DATA CBC: Lab Results Component Value Date WBC 10.6 11/15/2011 RBC 4.13 11/15/2011 HGB 9.2* 11/15/2011 HCT 29.4* 11/15/2011 MCV 71.1* 11/15/2011 MCH 22.2* 11/15/2011 MCHC 31.1* 11/15/2011 RDW 57.3* 11/15/2011 PLT 407* 11/15/2011 MPV 8.6 11/15/2011 DIFFTYPE AUTOMATED 11/15/2011 CMP: Lab Results Component Value Date NA 140 11/15/2011 K 4.0 11/15/2011 CL 112* 11/15/2011 CO2 19* 11/15/2011 ANIONGAP 13 11/15/2011 GLUF 88 11/15/2011 BUN 17 11/15/2011 CREATININE 2.14* 11/15/2011 BCR 8 11/15/2011 CA 8.1* 11/15/2011 PROT 8.0 11/14/2011 ALB 2.7* 11/14/2011 GLOB 5.3* 11/14/2011 BILITOT 0.3 11/14/2011 ALP 111 11/14/2011 AST 12 11/14/2011 ALT 31 11/14/2011 EGFR 26* 11/15/2011 Magnesium: No results found for this basename: MG Phosphorus: No results found for this basename: PHOS CT CHEST HIGH RESOLUTION 11/15/2011 8:03 AM HISTORY: History of rheumatoid lung, concern for tuberculosis COMPARISON: None TECHNIQUE: CT scan of the chest without contrast. High resolution chest CT. 5 mm thick raven kitty acquired axial images were obtained of the chest. 1 mm thick axial images were obtaine d for the high-resolution portion with inspiration, expiration in supine and prone position. FINDINGS: The visualized thyroid gland is normal in appearance. No cervical adenopathy is d emonstrated. A prominent right paratracheal lymph node is present measuring 17.8-mm in lengt h on image 19 series 5. A prominent subcarinal lymph node measures 16.8-mm in length on imag e 26. The heart is normal in size. No pericardial effusion is demonstrated. The trachea and esophagus are intact and normal in appearance. Bilateral small pleural effusions are present. No pneumothorax is demonstrated. Some scarri ng or atelectasis is noted laterally in the right upper lobe. No cavitary process is demonst rated. No focal airspace consolidation is present. Patchy atelectasis of the left lower lobe is demonstrated due to compression related to the pleural effusion. No evidence of intersti tial fibrosis. No evidence of air trapping. No aggressive lytic or blastic lesions are present. No acute rib fractures are noted. The l iver is smooth in contour. The gallbladder is surgically absent. The adrenals and spleen are normal in appearance. The visualized pancreas is normal. No free air is demonstrated. IMPRESSION: 1. No evidence of primary or reactivation tuberculosis. 2. There are bilateral small pleural effusions demonstrated of unclear etiology. This may b e a potential manifestation of rheumatoid lung disease. 3. Scattered mildly prominent mediastinal lymph nodes which may be related to underlying hi story of rheumatoid lung disease as well. Patient Name: JESSIE GUTIÉRREZ Date of : 1965 Performing Physician: Nathanael Magdaleno MD INDICATIONS CHF TB ISOLATION CONCLUSIONS 1. Overall left ventricular systolic function is normal with, an EF between 65 - 70 %. 2. There is mild concentric left ventricular hypertrophy. 3. Mild tricuspid regurgitation present. 4. Right ventricular systolic pressure (pulmonary artery systolic pressure) is normal at < 35 mmHg. 5. There is no pericardial effusion. FINDINGS -------- ECG rhythm: Sinus rhythm. Study: A 2-dimensional transthoracic echocardiogram with m-mode, spectral and color flow Do ppler was perfomed. Study: This was a technically adequate study with suboptimal parasternal views. Left Ventricle: Overall left ventricular systolic function is normal with, an EF between 65 - 70 %. Left Ventricle: There is mild concentric left ventricular hypertrophy. Right Ventricle: The right ventricle is mildly enlarged measuring between 3.4 - 3.7 cm. Left Atrium: The left atrium is normal in size. Right Atrium: The right atrium is mildly enlarged. Aortic Valve: The aortic valve is trileaflet, and appears anatomically normal. No aortic st enosis or regurgitation. Mitral Valve: The mitral valve is normal. Mitral Valve: There is trace mitral regurgitation. Tricuspid Valve: The tricuspid valve appears structurally normal. Tricuspid Valve: Mild tricuspid regurgitation present. Tricuspid Valve: Right ventricular systolic pressure (pulmonary artery systolic pressure) i s normal at < 35 mmHg. Pulmonic Valve: The pulmonic valve was not well visualized. Pericardium: There is no pericardial effusion. IVC/Hepatic Veins: The IVC is normal size (1.5-2.5cm) and collapses >50% with sniff, consis tent with central venous pressures of 5-10mmHg. Thrombus: No clot visualized PROBLEM LIST Principal Problem: *Unspecified pleural effusion Active Problems: SOB (shortness of breath) Hypoxia Renal failure (ARF), acute on chronic Lymphocytic exudative effusion r/o rheumatoid lung with effusion, r/o infection as TB effus ion, r/o Fungal infection, r/o CHF r/o Exertional related Asthma. There was no evidence of m alignancy on cytology. H/O Rheumatoid arthritis on tumor necrosis factor for 3 years stopped in Apr 2011- presentl y on Hydroxychloroquine. H/O squamous cell skin cancer over right neck s/p excision PLAN US Guided Thoracentesis tomorrow AM followed by discharge in the absence of pneumothorax. Increase hydroxychloroquine to 200 mg BID. F/U result of culture of pleural fluid from [facility]. Code Status: Full Code ANTHONY SIGALA MD 11/15/2011 onversion Transactio n, Provider Unknown - 11/15/2011 9:13 AM PDT Progress Notes by Ish Cash RPH at 11/15/11912 Author: Ish Cash RPH Service: (none) Author Type: Pharmacist Filed: 11/15/11912 Date of Service: 11/15/11912 Status: Signed Correspondence Renew Clerk: Ish Cash RPH (Pharmacist) Crcl~33.2ml/min no medications need adjustments at this time. Ish Cash >> ISH CASH 11/14/2011 17:14 Based on Crcl~29.4ml/min no medications need adjustments at this time. Will continue to fol low. Ish Cash Jagdeep Morocho MD - 11/15/2011 8:28 AM PDTFormatting of this note might be different from the origi nal. Progress Notes by Jagdeep Yip MD at 11/15/11827 Author: Jagdeep Yip MD Service: Hospitalist Author Type: Physician Filed: 11/15/11851 Date of Service: 11/15/11827 Status: Signed Correspondence Renew Clerk: Jagdeep Yip MD (Physician) [facility] Service: Hospitalist Progress Note Hospital Day: LOS: 1 day SUBJECTIVE Events Overnight: *Still laboured breathing. NO other complaints or fever. Scheduled Medications enoxaparin 40 mg Subcutaneous Q24H hydroxychloroquine 200 mg Oral Daily lidocaine buffered 1% 0.5 mL Subcutaneous Once pneumococcal vaccine 0.5 mL Intramuscular Once Immunization predniSONE 20 mg Oral Daily with breakfast DISCONTD: sodium chloride 3 mL Intravenous Q8H DISCONTD: sodium chloride 3 mL Intravenous Q8H Continuous Infusions PRN Medications albuterol, ondansetron, ondansetron, polyethylene glycol, sodium chloride, zolpidem OBJECTIVE Vital Signs: BP 172/82 | Pulse 70 | Temp(Src) 98.8 F (37.1 C) (Oral) | Resp 18 | Ht 1.575 m (5' 2.01 ") | Wt 88.451 kg (195 lb) | BMI 35.66 kg/m2 | SpO2 93% | ? Unknown Filed Vitals: 11/14/11 1943 11/14/11 2300 11/15/11 0435 11/15/11 0737 BP: 160/86 130/70 165/80 172/82 Pulse: 77 79 70 Temp: 98.1 F (36.7 C) 98.9 F (37.2 C) 98.8 F (37.1 C) TempSrc: Oral Oral Oral Resp: 18 Height: Weight: SpO2: 97% 94% 93% Intake/Output Summary (Last 24 hours) at 11/15/11 0828 Last data filed at 11/15/11 0435 Gross per 24 hour Intake 1100 ml Output 0 ml Net 1100 ml General: Well nourished. Psych: Alert and oriented x 3. Calm, cooperative. Cardiovascular: Regular rate and rhythm, no murmurs, no thrills. Normal PMI. Respiratory: Decreased BS b/l lower lobes. no wheezing or crackles, breathing somewhat labo red. Gastrointestinal: Soft, non-tender, non-distended, positive bowel sounds. No HSM. Musculoskeletal: No edema in bilateral lower extremities. No joint swelling. Skin: Warm and dry, no rashes. Neck: No JVD, Trachea midline. Neurological: Non focal. Motor grossly intact. DATA CBC: Lab Results Component Value Date WBC 10.6 11/15/2011 RBC 4.13 11/15/2011 HGB 9.2* 11/15/2011 HCT 29.4* 11/15/2011 MCV 71.1* 11/15/2011 MCH 22.2* 11/15/2011 MCHC 31.1* 11/15/2011 RDW 57.3* 11/15/2011 PLT 407* 11/15/2011 MPV 8.6 11/15/2011 DIFFTYPE AUTOMATED 11/15/2011 CMP: Lab Results Component Value Date NA 140 11/15/2011 K 4.0 11/15/2011 CL 112* 11/15/2011 CO2 19* 11/15/2011 ANIONGAP 13 11/15/2011 GLUF 88 11/15/2011 BUN 17 11/15/2011 CREATININE 2.14* 11/15/2011 BCR 8 11/15/2011 CA 8.1* 11/15/2011 PROT 8.0 11/14/2011 ALB 2.7* 11/14/2011 GLOB 5.3* 11/14/2011 BILITOT 0.3 11/14/2011 ALP 111 11/14/2011 AST 12 11/14/2011 ALT 31 11/14/2011 EGFR 26* 11/15/2011 Magnesium: No results found for this basename: MG Phosphorus: No results found for this basename: PHOS PT/INR: Lab Results Component Value Date INR 1.2 11/14/2011 PTT: Lab Results Component Value Date APTT 35 11/14/2011 [APTT PROBLEM LIST Principal Problem: *Unspecified pleural effusion Active Problems: SOB (shortness of breath) Hypoxia Renal failure (ARF), acute on chronic ASSESSMENT/ PLAN 1. Pleural Effusion: Unclear etiology. RA vs Fungal Vs TB vs malignancy. Will f/u Dr. Sigala f or recs. Will f/u cytology from previous hospital, TTE and Ct chest here. BNP 558. Will f/u Dr. Sigala for need of re tap if any. Sating well but is labored. 2. RA: C/w hydroxychloroquine. Not on Rosalia. 3. CODEY: unclear baseline. Improving. Telemetry: Not Required. Jasso: Not Required. DVT: On heparin/ lovenox SQ Disposition: Needs further work up as above. Code Status: Full Code Jagdeep Yip MD 11/15/20118:28 AM onversion Transaction, Provider Unknown - 11/14/2011 5:14 PM PDTFormatting of this note might be different from th e original. Progress Notes by Ish Cash RPH at 11/14/111713 Author: Ish Cash RPH Service: (none) Author Type: Pharmacist Filed: 11/14/11 1718 Date of Service: 11/14/111713 Status: Signed Correspondence Renew Clerk: Ish Cash RPH (Pharmacist) Based on Crcl~29.4ml/min no medications need adjustments at this time. Will continue to fol low. Ish Cash ostTiana mullen MSW - 11/14/2011 1:58 PM PDT Progress Notes by SHUN Wright at 11/14/11 1664 Author: SHUN Wright Service: (none) Author Type: Building Construction Estimator Filed: 11/14/11 1401 Date of Service: 11/14/11 0558 Status: Signed Correspondence Renew Clerk: SHUN Wright (Building Construction Estimator) Pt lives in an apartment with her significant other, Destiny Casarez. Pt does has no ch ildren, no POA. Pt was DC from [facility] yesterday after a 4 day admission. P t last saw her PCP in September 2011 for different Sx. 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 Pt's S/O is available to transport and care for pt post DC. No needs identified at this time. CRM to follow as clinical course progresses. Keiko Lu CM [employer] Officer documented in this encounter H&P Notes Jose Luis Lorenz MD - 11/14/2011 2:08 PM PDT H&P by Jose Luis Lorenz MD at 11/14/11 1408 Author: Jose Luis Lorenz MD Service: Hospitalist Author Type: Physician Filed: 11/15/11 0916 Date of Service: 11/14/11 1408 Status: Addendum Correspondence Renew Clerk: Jose Luis Lorenz MD (Physician) Related Notes: Original Note by Jose Luis Lorenz MD (Physician) filed at 11/14/11 1431 [facility] Service: Hospitalist Admission History & Physical Pt: Jessie Gutiérrez AGE/SEX: 46 y.o. female ROOM: 06/13 PCP: NATTY STEEN DO, : 1965 TODAY'S DATE: 11/14/2011 Date of Admission: 11/14/2011 Chief Complaint: SOB for 1 week History of Present Illness: A 46-year-old female with past medical history of rheumatoid arthritis,morbid obesity, squa mous cell carcinoma, who was recently discharged yesterday from [facility] in [facility] after she was admitted with shortness of breath. She has been on tumor necrosis fact or Humira and Plaquenil. She developed a cough with cold approximately November 07, 2011. She alberto d been having pleuritic chest pain at that time with deep inspiration, decreased with rest, and it was 8 out of 10. She had no hemoptysis at that time. She went to [facility] where she was noted to have a large right-sided pleural effusion thought to be due to rheum atoid arthritis. At that time, her white count was 11. Her kidney function was close to 2, and she had a fever of 101.3 at that time. She had mild men olivia status change and thought to be due to the pleural effusion. She was started on broad-sp ectrum antibiotics with Zosyn. She had consultation from the surgeon over there, as they wer e afraid that she might have a paraneumonic effusion. They did a pleural tap and about 1.15 L of jefe fluid was drained. Analysis of the fluid showed exudative characteristics. Fluid sent for cytology, which was pending at the time of discharge. The culture did not grow anyt christina. The patient while she was there had numerous blood cultures. They were all negative. S he had elevated liver function test at that time, which improved. Over there, she had ultrasound retroperitoneal that showed mild echogenicity in t he kidneys due to renal failure without any hydronephrosis. She also had CT scan of the ches t, which was interpreted as a right-sided pleural effusion with atelectasis with mediastina l lymph nodes increased in number, lymph node in the bilateral intramammary chains and incre ased number in size. She also had a verbal ID consultation who recommended TB testing as wel l over there. She was discharged yesterday on ciprofloxacin, but she could not sleep overnight. She came back to [facility]. She says she has been having increasing shortness of breath along with orthopnea and PND, having mild chest pain as well which is 3 out of 10, non radiating and aggravated by d eep inspiration. She said she was perfectly fine before she got this. She was walking indepe ndently normal uphill without any shortness of breath and without any chest pain. Her appeti te was good, without any abdominal bloating. She has not taken any other medications. She alberto s not traveled anywhere recently. When she came to [facility], she was found to have a left-sided pleural effusion at this time, and she was slightly tachypneic, so the hospitalist service was call ed to admit this patient. PMHx: Past Medical History Diagnosis Date Rheumatoid arthritis PSHx: Past Surgical History Procedure Date Gall stone removal Tumor removal Neck Tonsillectomy Cholecystectomy Prior To admission Meds: Prior to Admission medications Medication Sig Start Date End Date Taking? Authorizing Provider hydroxychloroquine (PLAQUENIL) 200 MG tablet Take by mouth daily. Yes Historical Provi esteban Medications scheduled: sodium chloride 3 mL Intravenous Q8H Allergies: No Known Allergies Immunization: Influenza: Up-to-date Pneumoccocal: never had one Family Hx: Family History Problem Relation Age of Onset Diabetes type II Mother High cholesterol Father Diabetes type II Father Social Hx: History Substance Use Topics Smoking status: Former Smoker Smokeless tobacco: Not on file Comment: Quit about 2 months ago. Alcohol Use: No Review of Symptoms: Constitutional: Negative for fever, chills, diaphoresis, activity change, appetite change, fatigue and unexpected weight change. HENT: Negative for hearing loss, ear pain, nosebleeds, congestion, facial swelling, rhinorr hea, neck pain, neck stiffness, dental problem, tinnitus and ear discharge. Eyes: Negative for photophobia, pain, discharge, redness, itching and visual disturbance. Respiratory: positive for SOB, chest tightness, shortness of breath and wheezing. Cardiovascular: Negative for chest pain, palpitations and leg swelling. Gastrointestinal: Negative for nausea, vomiting, abdominal pain, diarrhea, constipation, bl ood in stool, abdominal distention, anal bleeding and rectal pain. Genitourinary: Negative for dysuria, frequency, hematuria, flank pain, difficulty urinating and dyspareunia. Musculoskeletal: Negative for back pain, joint swelling, arthralgias and gait problem. _ Skin: Negative for color change, pallor, rash and wound. Neurological: Negative for dizziness, tremors, seizures, syncope, weakness, light-headednes s, numbness and headaches. Hematological: Negative for adenopathy. Does not bruise/bleed easily. Psychiatric/Behavioral: Negative for suicidal ideas, hallucinations, behavioral problems, c onfusion and agitation. Objective: Vital Signs: BP 178/89 | Pulse 84 | Temp(Src) 98.1 F (36.7 C) (Oral) | Resp 18 | Ht 1.575 m (5' 2") | Wt 88.542 kg (195 lb 3.2 oz) | BMI 35.70 kg/m2 | SpO2 100% Physical Exam: Constitutional: Oriented to person, place, and time. appears well-developed and well-nouris hed. HEENT: Head: Normocephalic and atraumatic. Nose: Nose normal. Mouth/Throat: Oropharynx is clear and moist. Eyes: Conjunctivae and EOM are normal. Pupils are equal, round, and reactive to light. Righ t eye exhibits no discharge. Left eye exhibits no discharge. No scleral icterus. Neck: Normal range of motion. Neck supple. No JVD present. No tracheal deviation present. N o thyromegaly present. no cervical adenopathy. Cardiovascular: Normal rate, regular rhythm, normal heart sounds with S1 and S2, and intact distal pulses. Exam reveals no gallop and no friction rub. No murmur heard. Pulmonary/Chest: Effort normal and breath sounds normal. No stridor. No respiratory distres s. no wheezes. no rales. exhibits no tenderness. Abdominal: Soft. Bowel sounds are normal. exhibits no distension and no mass. There is no t enderness. There is no rebound and no guarding. Extremities/Musculoskeletal: Normal range of motion.exhibits no tenderness. exhibits no ed salvador. Neurological: Alert and oriented to person, place, and time. Has normal reflexes. display s normal reflexes. No cranial nerve deficit. Exhibits normal muscle tone. Coordination norm al. Skin: Skin is warm and dry. No rash noted. No erythema. No pallor. Psychiatric: Has a normal mood and affect. Behavior is normal. Judgment normal. Data: Lab 11/14/11 1233 WBC 11.8* HGB 9.5* HCT 30.5* PLT 432* NEUTOPHILPCT 78.5 MONOPCT 6.3 Lab 11/14/11 1233 NA 141 K 4.2 CL 112* CO2 18* BUN 16 CREATININE 2.42* CALCIUM -- PROT 8.0 BILITOT 0.3 ALKPHOS -- ALT 31 AST 12 GLUCOSE -- Lab 11/14/11 1233 APTT 35 INR 1.2 PTT -- She had US at At. [facility] was normal EKG: NSR at 77bpm Chest X-Ray: Problem List: Principal Problem: *Unspecified pleural effusion Active Problems: SOB (shortness of breath) Hypoxia Renal failure (ARF), acute on chronic Assessment and Plan: A 46-year-old female with history of rheumatoid arthritis, on Humira and Plaquenil, not taking Humira at this time. Recently discharged from [facility] for right-sided pleural fluid status post drainage. She came back to the hospital with left-sided pleural effusion this time. 1. Pleural effusion. She was treated at [facility] with antibiotics, Zosyn as well as pleural fluid was exudative in characteristics and central cytology was pending. She was discharged and c helder back as she was still having shortness of breath. At this time, she had a left-sided pl eural effusion. I already discussed with Dr. Sigala and she looks comfortable at this time. I do not think that she needs an emergent pleural tap. Dr. Sigala said he will see and will de cide about that, about the pleural tap. Possible etiology is rheumatoid arthritis versus un derlying malignancy cannot be ruled out. She needs to be evaluated for the malignancy. As we ll, at this time, if we do the pleural tap, we need to send for cytology and if cytology is negative she might need a biopsy as well. 2. Shortness of breath. She looks comfortable at this time. [facility] 7.34, pO2 of 104, and lactate was normal. She is slightly tachypneic but she is not using her access ory muscles. 3. Mpihr-zl-uyjujyb kidney failure. The cause is unknown. It could be related to the medications but I will followup the kidney function panel as well. 4. At [facility] she was treated for anemia, more likely iron deficiency anemia with 2 units of packed rbc's. She does not look anemic at this time. She was also treated fo r hypomagnesemia over there. Currently, I do not think that she needs an antibiotic at this time. She does not look like she is having any fever. Dr. Sigala will decide and see if he nee ds antibiotics. Discussed with the patient in detail. She understands and agrees with the pl an. I will also do the Echo cardiogram to make sure her heart is okay Patient's old records and labs were reviewed in detail and summarized. Code Status: No Order Primary Care Physician: NATTY STEEN DO, DO JOSE LUIS LORENZ MD, FACP 11/14/2011 2:08 PM documented in this enc ounter Procedure Notes Anthony Sigala MD - 12/05/2011 7:07 PM PDT Procedures signed by Anthony Sigala MD at 12/11/11 2925 Author: Anthony Sigala MD Service: (none) Author Type: Physician Filed: 12/11/11 1735 Date of Service: 12/05/111906 Status: Signed Correspondence Renew Clerk: Anthony Sigala MD (Physician) JESSIE GUTIÉRREZ Date of : 1965 PROCEDURE Thoracentesis. INDICATIONS Left pleural effusion. DESCRIPTION OF PROCEDURE Consent was obtained. Risks, complications, and benefits of the procedure were explained to the patient. Under ultrasound guidance, left posterior hemithorax was mapped by ultrasound for thoracentesis. With the patient sitting up, the posterior hemithorax was cleansed with ChloraPrep and was draped. Aseptic technique was observed throughout the procedure. Skin was infiltrated with lidocaine to the subcutaneous tissue and upper border of the . Needle was removed. Skin was incised. Needle with catheter was then inserted until there was backflow. Needle was removed and catheter was advanced. Total of 700 mL fluid was drained. Chest x-ray did not show any pneumothorax. P/ P/dlm/[id number] ANTHONY SIGALA MD documented in this en counter Consult Notes Erik Lay - 11/16/2011 11:53 AM PDT Consults by Erik Lay MD at 11/16/11 0624 Author: Erik Lay MD Service: Nephrology Author Type: Physician Filed: 11/16/11 6010 Date of Service: 11/16/11 1158 Status: Signed Correspondence Renew Clerk: Erik Lay MD (Physician) [facility] Service: NEPHROLOGY CONSULT Note Jessie Gutiérrez 46 y.o. [id number] female NATTY STEENDO, DO Hospital Day: LOS: 2 days Date of Admission: 11/16/2011 Requesting Physician: Hospitalist Reason for CONSULTATION: ARF History Obtained From: patient, family HISTORY OF PRESENT ILLNESS A 46-year-old female with past medical history of rheumatoid arthritis,morbid obesity, squa mous cell carcinoma, who was [facility] with shortness of breath. She has been on tumor necrosis factor Humira and Plaquenil. She developed a cough with cold approximately November 07, 2011. She had been alberto ving pleuritic chest pain at that time with deep inspiration. She went to [facility] where she was noted to have a large right-sided pleural effusion thought to be due to rhe umatoid arthritis. At that time, her white count was 11. Her kidney function was close to 2, and she had a fever of 101.3 at that time. She was started on broad-spectrum antibiotics with Zosyn. They did a pleural tap and about 1.15 L of jefe fluid was drained. Analysis of the fluid showed exudative characteristics. Over there, she had ultrasound retroperitoneal that showed mild echogenicity in the kidneys due to renal failure without any hydronephrosis. She also had CT scan of the chest, which w as interpreted as a right-sided pleural effusion with atelectasis with mediastinal lymph nod es increased in number, lymph node in the bilateral intramammary chains and increased number in size. She was discharged on ciprofloxacin, but she could not sleep overnight. She came to [facility]. She says she has been having increasing shortness of breath along with orthopnea and PND, having mild chest pain as well which is 3 out of 10, non radiating and aggravated by deep inspiration. she was found to have a left-sided pleural effusion at t his time ALONG WITH WORSENING RENAL FAILURE Nephrology consulted for evaluation and management of ARF ONSET ACUTE severity MODERATE to severe Associated with fluid electrolyte acid base imbalances RA NOT ON HUMIRA DUE TO SKIN CANCER NOW Used methotrexate in past by dr castillo in [place], or [employer] Denies any urinary symptoms including foamy urine, blood in urine, burning, increased frequ ency, urgency, hesitancy. denies any FH of kidney problems. denies any hearing loss in childhood. denies chronic sinus problems. Denies use NSAIDS/CAMPBELL-2 INHIBITORS. +ve recent Antibiotic use. Denies any recent IV Contrast use. Denies Herbal meds/ heavy metal exposure. Denies any malignancy, TB, Sarcoidosis, Hepatitis. Denies recurrent utis Denies kidney stones Denies generalized body aches/pain Denies recent hypotension/ infection Denies recent surgery/ trauma Past Medical History Diagnosis Date Rheumatoid arthritis Past Surgical History Procedure Date Gall stone removal Tumor removal Neck Tonsillectomy Cholecystectomy Prescriptions prior to admission Medication Sig Dispense Refill hydroxychloroquine (PLAQUENIL) 200 MG tablet Take by mouth daily. No Known Allergies Family History Problem Relation Age of Onset [...] Use: No Drug Use: No Sexually Active: Other Topics Concern Not on file Social History Narrative [facility]/2 ppd for 15 yearsetoh very occasionallyDrugs noneFather might have kidney problemsMother lives in [place] has dm-2 DAD AND GRAND MA BOTH HAD RA Scheduled Medications enoxaparin 40 mg Subcutaneous Q24H hydroxychloroquine 200 mg Oral BID lidocaine lidocaine buffered 1% 0.5 mL Subcutaneous Once predniSONE 20 mg Oral Daily with breakfast DISCONTD: enoxaparin 40 mg Subcutaneous Q24H DISCONTD: hydroxychloroquine 200 mg Oral Daily Continuous Infusions PRN Medications albuterol, hydrALAZINE, labetalol, ondansetron, ondansetron, polyethylene glycol, sodium ch loride, zolpidem Allergy: No Known Allergies OBJECTIVE Vital Signs: BP 140/83 | Pulse 70 | Temp(Src) 98.1 F (36.7 C) (Oral) | Resp 18 | Ht 1.575 m (5' 2.01 ") | Wt 84.1 kg (185 lb 6.5 oz) | BMI 33.90 kg/m2 | SpO2 95% | ? Unknown I&O Detailed Table: I/O last 3 completed shifts: In: 4000 [P.O.:4000] Out: - Weight change: -4.442 kg (-9 lb 12.7 oz) ROS: Constitutional: Positive for fever and activity change. Negative for chills, diaphoresis, a ppetite change, fatigue and unexpected weight change. HENT: Positive for congestion, sore throat and mouth sores. Negative for hearing loss, ear pain, nosebleeds, facial swelling, rhinorrhea, sneezing, drooling, trouble swallowing, neck pain, neck stiffness, dental problem, voice change, sinus pressure, tinnitus and ear dischar ge. Eyes: Negative. Respiratory: Positive for cough and shortness of breath. Negative for apnea, choking, chest tightness, wheezing and stridor. Cardiovascular: Negative. Gastrointestinal: Negative. Genitourinary: NEGATIVE. Musculoskeletal: Negative. Neurological: Negative. Hematological: Negative. Psychiatric/Behavioral: Negative. Rest of the ROS Unremarkable. Examination: APPEARANCE: The patient is a pleasant sitting in no apparent distress. VITALS: Reviewed as listed. HEAD: NC/AT. EYES: PERRLA. EOMI. Non-icteric sclera. ENT: No oropharyngeal erythema. Buccal mucosa is moist. No gross ear or nasal prob lems noted. NECK: Supple. No raised JVD or thyromegaly. LYMPHATIC: No palpable lymphadenopathy. LUNGS: DECREASE BS AT BASES bilaterally. HEART: S1, S2, no pericardial rub noted. ABDOMEN: Full, soft, no tenderness. Bowel sounds are present. No organomegaly or bruit s noted. EXTREMITIES: no pedal edema noted. No cyanosis or clubbing. Peripheral pulses palpable. SKIN: Warm to touch. No rash or ecchymosis noted. NEUROLOGIC: No gross focal motor deficit noted. PSYCH: The patient is alert and oriented x 3, mood and affect looks ok, memory seems to be intact. BACK: no CVA tenderness noted LABS: Recent Results (from the past 24 hour(s)) CBC W/AUTO DIFF (REFLEX TO MANUAL) Collection Time 11/16/11 9:12 AM Component Value Range WBC 9.9 3.8 - 11.0 (K/uL) RBC 4.59 3.70 - 5.10 (M/uL) HGB 10.1 (*) 11.3 - 15.5 (g/dL) HCT 32.5 (*) 34.0 - 46.0 (%) MCV 70.8 (*) 80.0 - 100.0 (fl) MCH 22.0 (*) 27.0 - 34.0 (pg) MCHC 31.0 (*) 32.0 - 35.5 (g/dL) RDW SD 56.0 (*) 37 - 53 (fl) PLT 490 (*) 150 - 400 (K/uL) MPV 8.2 DIFF TYPE AUTOMATED NEUTROPHILS 80.7 (*) 40 - 80 (%) LYMPHOCYTES 11.2 (*) 15 - 45 (%) MONOCYTES 4.9 0 - 12 (%) EOSINOPHILS 2.6 0 - 7 (%) BASOPHILS 0.6 0 - 2 (%) NEUTROPHILS ABS 8.0 (*) 2.0 - 7.3 (K/uL) LYMPHOCYTES ABS 1.1 1.0 - 3.4 (K/uL) MONOCYTES ABS 0.5 0 - 0.8 (K/uL) EOSINOPHILS ABS 0.3 0 - 0.5 (K/uL) BASOPHILS ABS 0.1 0 - 0.1 (K/uL) MORPHOLOGY 1+ BASIC METABOLIC PANEL Collection Time 11/16/11 9:12 AM Component Value Range SODIUM 141 135 - 143 (mmol/L) POTASSIUM 3.6 3.5 - 4.9 (mmol/L) CHLORIDE 110 (*) 99 - 109 (mmol/L) CO2 19 (*) 23 - 32 (mmol/L) ANION GAP AGAP 15 5 - 20 (mmol/L) GLUCOSE 177 (*) 65 - 99 (mg/dL) BUN 17 8 - 25 (mg/dL) CREATININE 2.03 (*) 0.50 - 1.00 (mg/dL) BUN/CREAT 8 CALCIUM 8.2 (*) 8.5 - 10.2 (mg/dL) EGFR 28 (*) >60 (mL/min/1.73m2) MAGNESIUM Collection Time 11/16/11 9:12 AM Component Value Range MAGNESIUM 1.8 1.7 - 2.4 (mg/dL) PHOSPHOROUS Collection Time 11/16/11 9:12 AM Component Value Range PHOSPHORUS 3.9 2.3 - 4.8 (mg/dL) IMAGING: X-ray Chest 2 View Frontal & Lateral 11/14/2011 JESSIE GUTIÉRREZ XR CHEST 2 VIEW FRONTAL AND LATERAL 11/14/2011 12:10 PM HISTORY: S hortness of breath. TECHNIQUE: Two views of the chest. FINDINGS: No prior comparison avail able. There are small bilateral pleural effusions, left larger than right. Heart size is p robably upper limits of normal. A probable calcified granulomas in the right lung base. Th ere is mild left lower lobe atelectasis or infiltrate adjacent to the pleural effusion. No evidence of pneumothorax. IMPRESSION: 1. Small bilateral pleural effusions, left larger th an right. 2. Mild left lower lobe infiltrate or atelectasis. 3. Old granulomatous disease. Ct Chest High Resolution 11/15/2011 JESSIE CHRISTENSENLAR [address] CHEST HIGH RESOLUTION 11/15/2011 8:03 AM HISTORY: History of rheumatoid lung, concern for tuberculosis COMPARISON: None TECHNIQ UE: CT scan of the chest without contrast. High resolution chest CT. 5 mm thick helically acquired axial images were obtained of the chest. 1 mm thick axial images were obtained for the high-resolution portion with inspiration, expiration in supine and prone position. FIN DINGS: The visualized thyroid gland is normal in appearance. No cervical adenopathy is demo nstrated. A prominent right paratracheal lymph node is present measuring 17.8-mm in length on image 19 series 5. A prominent subcarinal lymph node measures 16.8-mm in length on image 26. The heart is normal in size. No pericardial effusion is demonstrated. The trachea an d esophagus are intact and normal in appearance. Bilateral small pleural effusions are pres ent. No pneumothorax is demonstrated. Some scarring or atelectasis is noted laterally in t he right upper lobe. No cavitary process is demonstrated. No focal airspace consolidation is present. Patchy atelectasis of the left lower lobe is demonstrated due to compression re lated to the pleural effusion. No evidence of interstitial fibrosis. No evidence of air tr apping. No aggressive lytic or blastic lesions are present. No acute rib fractures are n oted. The liver is smooth in contour. The gallbladder is surgically absent. The adrenals and spleen are normal in appearance. The visualized pancreas is normal. No free air is dem onstrated. IMPRESSION: 1. No evidence of primary or reactivation tuberculosis. 2. There are bilateral small pleural effusions demonstrated of unclear etiology. This may be a pote ntial manifestation of rheumatoid lung disease. 3. Scattered mildly prominent mediastinal l ymph nodes which may be related to underlying history of rheumatoid lung disease as well. E lectronically signed by Star Gonzales MD on 11/15/2011 8:29 AM Echo Cardiac Adult Complete 11/15/2011 Patient Name: JESSIE GUTIÉRREZ Date of : 1965 P erforming Physician: Nathanael Magdaleno MD INDICATIONS CHF TB ISOLATION CONCLUSIONS 1. Overall left ventricular systolic function is normal with, an EF between 65 - 70 %. 2. There is mild con centric left ventricular hypertrophy. 3. Mild tricuspid regurgitation present. 4. Right vent ricular systolic pressure (pulmonary artery systolic pressure) is normal at < 35 mmHg. 5. Th ere is no pericardial effusion. FINDINGS -------- ECG rhythm: Sinus rhythm. Study: A 2-dime nsional transthoracic echocardiogram with m-mode, spectral and color flow Doppler was perfom ed. Study: This was a technically adequate study with suboptimal parasternal views. Left Ve ntricle: Overall left ventricular systolic function is normal with, an EF between 65 - 70 %. Left Ventricle: There is mild concentric left ventricular hypertrophy. Right Ventricle: Th e right ventricle is mildly enlarged measuring between 3.4 - 3.7 cm. Left Atrium: The left a trium is normal in size. Right Atrium: The right atrium is mildly enlarged. Aortic Valve: Th e aortic valve is trileaflet, and appears anatomically normal. No aortic stenosis or regurgi tation. Mitral Valve: The mitral valve is normal. Mitral Valve: There is trace mitral regur gitation. Tricuspid Valve: The tricuspid valve appears structurally normal. Tricuspid Valve : Mild tricuspid regurgitation present. Tricuspid Valve: Right ventricular systolic pressur e (pulmonary artery systolic pressure) is normal at < 35 mmHg. Pulmonic Valve: The pulmonic valve was not well visualized. Pericardium: There is no pericardial effusion. IVC/Hepatic Ve ins: The IVC is normal size (1.5-2.5cm) and collapses >50% with sniff, consistent with centr al venous pressures of 5-10mmHg. Thrombus: No clot visualized MEASUREMENTS IV C: 1.69 cm LA Major: 5.71 cm EDV(Teich): 80.40 ml IVSd: 1.24 cm LVIDd: 4.24 cm LVP Wd: 1.03 cm LVOT Diam: 1.76 cm %FS: 36.23 % EF(Teich): 66.27 % ESV(Teich): 27.11 m l IVSs: 1.25 cm LVIDs: 2.70 cm LVPWs: 1.89 cm SV(Teich): 53.28 ml RA Major: 5.43 c m RVIDd: 3.67 cm LVEF MOD A4C: 68.09 % SV MOD A4C: 58.69 ml LVEDV MOD A4C: 86.19 ml LVLd A4C: 7.16 cm LVESV MOD A4C: 27.49 ml LVLs A4C: 6.04 cm LAESV(A-L): 65.33 ml LAE SV Index (A-L): 34.56 ml/m2 LAAs A2C: 20.29 cm2 LAESV A-L A2C: 62.80 ml LALs A2C: 5. 56 cm LAAs A4C: 21.11 cm2 LAESV A-L A4C: 67.11 ml LALs A4C: 5.63 cm Ao Diam: 2.95 cm AV Cusp: 1.86 cm LA Diam: 3.61 cm LA/Ao: 1.22 IVC diameter: 1.48 cm IVC collapse: 0.63 cm IVC % collapse: 55.65 % HR: 74.65 BPM AV maxP.05 mmHg AV meanP.93 mmHg AV Vmax: 2.00 m/s AV Vmean: 1.33 m/s AV VTI: 43.48 cm JAQUELIN Vmax: 1.52 cm2 JAQUELIN ( VTI): 1.53 cm2 LVCI Dopp: 2.55 l/minm2 LVCO Dopp: 4.83 l/min HR: 72.29 BPM LVOT maxP .28 mmHg LVOT meanP.03 mmHg LVSI Dopp: 35.35 ml/m2 LVSV Dopp: 66.82 ml LVOT Vmax: 1.25 m/s LVOT Vmean: 0.80 m/s LVOT VTI: 27.35 cm MCO: 410.35 ms MV A [place]: 0. 73 m/s MV DecT: 198.95 ms MV E [place]: 1.29 m/s MV E/A Ratio: 1.76 MV PHT: 53.96 ms MV A By PHT: 4.07 cm2 MV A Dur: 110.90 ms MV maxP.19 mmHg MV meanP.00 mmHg MV V max: 1.43 m/s MV Vmean: 0.78 m/s MV VTI: 32.41 cm MVA (VTI): 2.06 cm2 Septal e': 0 .08 m/s Septal E/e': 14.90 Lateral e': 0.10 m/s Lateral E/e': 12.61 P Vein A: 0.26 m/s P Vein A Dur: 85.02 ms P Vein D: 0.44 m/s P Vein S/D Ratio: 1.76 P Vein S: 0.7 8 m/s HR: 69.06 BPM PV maxP.25 mmHg PV meanP.56 mmHg PV Vmax: 0.90 m/s PV Vm alfonzo: 0.58 m/s PV VTI: 21.46 cm RAP: 5 mmHg RVSP: 34.84 mmHg TR maxP.84 mmHg T R Vmax: 2.73 m/s TV A [place]: 0.59 m/s TV Dec [place]: 3.75 m/s2 TV Dec Time: 209.78 ms T V E [place]: 0.78 m/s TV E/A Ratio: 1.32 Fuel Cell Binder: MELODY Authenticated by: Nathanael Magdaleno MD Report Date/Time: 11-15-2011 15:50:41 Patient's old records and labs were reviewed in detail and summarized. PROBLEM LIST Principal Problem: *Unspecified pleural effusion Active Problems: SOB (shortness of breath) Hypoxia Anemia Acidosis ARF (acute renal failure) ASSESSMENT & PLAN ARF LIKELY POSSIBILITIES INCLUDE: Renal hypoperfusion R.O AIN R.O POST INFECTIOUS GLOMERULONEPHRITIS R.O HYDRONEPHROSIS R.O RENAL INVOLVEMENT WITH RHEUMATOID/ PULMONARY RENAL SYNDROME Start IV FLUIDS Hold Diuretics/ TRACY-I/ ARBS Urine studies ordered C3, C4 levels US Renal R.O hydropnephrosis Strict I & O, Daily weights Daily RFP Renal diet AVOID NSAIDS/ CAMPBELL-2 INHIBITORS AVOID NEPHROTOXIC MEDS INCLUDING AMINOGLYCOSIDES/ IV CONTRAST Dose all meds for crcl less than 20 mls/min Reduce Hydroxychloroquine back to 200 mg daily because of renal failure BY DR SIGALA ACIDOSIS START NAHCO3 DRIP ANEMIA CHECK IRON PANEL, B12, FOLATE PLEURAL EFFUSIONS PER DR SIGALA SEEMS LIKELY SECONDARY TO R.A STARTED ON PREDNISONE BY DR SIGALA R.A severe CASE DISCUSSED IN DETAIL WITH PATIENT/ FAMILY/HOSPITALIST/ DR SIGALA, ANSWERS ALL QUESTIONS IN DETAIL, VERBALIZES UNDERSTANDING I thank Dr yip for giving me the opportunity to take part in the care of this donna patie nt with multiple complex medical problems ERIK LAY MD 11/16/2011 an, Anthony Lo MD - 11/14/2011 8:43 PM PDT Consult* by Anthony Sigala MD at 11/14/112042 Author: Anthony Sigala MD Service: Pulmonology Author Type: Physician Filed: 11/14/112142 Date of Service: 11/14/112042 Status: Signed Correspondence Renew Clerk: Anthony Sigala MD (Physician) Related Notes: Original Note by Anthony Sigala MD (Physician) filed at 11/14/112142 [facility] Service: Pulmonology Initial Consult Note Date of Admission: 11/14/2011 Reason for Consultation: Evaluation of bilateral pleural effusion Requesting Physician: Hospitalist History Obtained From: patient, chart review CHIEF COMPLAINT: SOB HISTORY OF PRESENT ILLNESS The patient is a 46 y.o. 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 The patient is being followed by Dr. Castillo at [place], [place]. The patient complained of a dry cough since November 07, 2011, with accompanying shortness of breath on exertion, and smoking. The patient had a fever on November 06, 2011, with no chilling or sweating. Fever is noted at night with dry cough, but no nasal drainage or sneezing. The patient complained of a sore throat today. The patient denies any nausea, vomiting, or abdominal pain. The patient went to [facility] in [place], [place], and was admitted. Temperature was 101.3 degrees. The patient was given IV Zosyn during hospitalization and was discharged on Cipro on November 13, 2011. During hospitalization CT scan of the chest was done showing right pleural effusion which was drained, with 1.15 L of jefe fluid was drained. WBC was 89, RBC 2189, segs 5, monocytes 5, lymphocytes 496. The rest of the chemistry was not available for review. The patient was readmitted here today. Last night the patient complained of cough and was not able to sleep, not able to breathe, using 1 pillow to sleep and she was sleeping on the couch. The patient also complained of shortness of breath on ambulating about 100 feet. The patient had a PPD done during hospitalization at [facility]. The results were negative. The patient had orthopnea. He denies any TB exposure. He denies any asthma exposure. Chest x-ray which was done on this hospitalization shows bilateral pleural effusion, worse over the left side than the right side, but it was minimal with no infiltration. I was then consulted for further evaluation. REVIEW OF SYSTEMS Review of Systems Constitutional: Positive for fever and activity change. Negative for chills, diaphoresis, a ppetite change, fatigue and unexpected weight change. HENT: Positive for congestion, sore throat and mouth sores. Negative for hearing loss, ear pain, nosebleeds, facial swelling, rhinorrhea, sneezing, drooling, trouble swallowing, neck pain, neck stiffness, dental problem, voice change, sinus pressure, tinnitus and ear dischar ge. Eyes: Negative. Respiratory: Positive for cough and shortness of breath. Negative for apnea, choking, chest tightness, wheezing and stridor. Cardiovascular: Negative. Gastrointestinal: Negative. Genitourinary: Negative. Musculoskeletal: Negative. Neurological: Negative. Hematological: Negative. Psychiatric/Behavioral: Negative. Past Medical History Diagnosis Date Rheumatoid arthritis Past Surgical History Procedure Date Gall stone removal Tumor removal Neck Tonsillectomy Cholecystectomy No Known Allergies Prescriptions prior to admission Medication Sig Dispense Refill hydroxychloroquine (PLAQUENIL) 200 MG tablet Take by mouth daily. Scheduled Medications enoxaparin 40 mg Subcutaneous Q24H hydroxychloroquine 200 mg Oral Daily lidocaine buffered 1% 0.5 mL Subcutaneous Once sodium chloride 3 mL Intravenous Q8H DISCONTD: sodium chloride 3 mL Intravenous Q8H Continuous Infusions PRN Medications ondansetron, ondansetron, polyethylene glycol, zolpidem Family History Problem Relation Age of Onset [...] Use: No Drug Use: No Sexually Active: Other Topics Concern Not on file Social History Narrative No narrative on file PHYSICAL EXAM Vital Signs: BP 160/86 | Pulse 77 | Temp(Src) 98.1 F (36.7 C) (Oral) | Resp 16 | Ht 1.575 m (5' 2.01 ") | Wt 88.451 kg (195 lb) | BMI 35.66 kg/m2 | SpO2 97% | ? Unknown No intake or output data in the 24 hours ending 11/14/112044 Physical Exam Constitutional: She is oriented to person, place, and time. She appears well-developed and well-nourished. No distress. HENT: Head: Normocephalic and atraumatic. Nose: Nose normal. Mouth/Throat: Oropharynx is clear and moist. No oropharyngeal exudate. Eyes: Pupils are equal, round, and reactive to light. No scleral icterus. Neck: Normal range of motion. Neck supple. No JVD present. No tracheal deviation present. N o thyromegaly present. Cardiovascular: Normal rate, regular rhythm, normal heart sounds and intact distal pulses. Exam reveals no gallop and no friction rub. No murmur heard. Pulmonary/Chest: Effort normal. No stridor. No respiratory distress. She has no wheezes. Sh e has no rales. She exhibits no tenderness. bibasal rhonchi. Abdominal: Soft. Bowel sounds are normal. She [...] CBC: Lab Results Component Value Date WBC 11.8* 11/14/2011 RBC 4.32 11/14/2011 HGB 9.5* 11/14/2011 HCT 30.5* 11/14/2011 MCV 70.7* 11/14/2011 MCH 22.1* 11/14/2011 MCHC 31.2* 11/14/2011 RDW 56.9* 11/14/2011 PLT 432* 11/14/2011 MPV 8.3 11/14/2011 DIFFTYPE AUTOMATED 11/14/2011 CMP: Lab Results Component Value Date NA 141 11/14/2011 K 4.2 11/14/2011 CL 112* 11/14/2011 CO2 18* 11/14/2011 ANIONGAP 15 11/14/2011 GLUF 92 11/14/2011 BUN 16 11/14/2011 CREATININE 2.42* 11/14/2011 BCR 7 11/14/2011 CA 8.2* 11/14/2011 PROT 8.0 11/14/2011 ALB 2.7* 11/14/2011 GLOB 5.3* 11/14/2011 BILITOT 0.3 11/14/2011 ALP 111 11/14/2011 AST 12 11/14/2011 ALT 31 11/14/2011 EGFR 23* 11/14/2011 Magnesium: No results found for this basename: MG Phosphorus: No results found for this basename: PHOS PT/INR: Lab Results Component Value Date INR 1.2 11/14/2011 PTT: Lab Results Component Value Date APTT 35 11/14/2011 [APTT ABG: Lab Results Component Value Date POCPH 7.354 11/14/2011 POCPCO 30* 11/14/2011 POCPO2 104 11/14/2011 POCHCO 17* 11/14/2011 POCTCO2 18* 11/14/2011 POCBD 9* 11/14/2011 POCSO2 98 11/14/2011 Two views of the chest. FINDINGS: No prior comparison available. There are small bilateral pleural effusions, left larger sonia n right. Heart size is probably upper limits of normal. A probable calcified granulomas in t he right lung base. There is mild left lower lobe atelectasis or infiltrate adjacent to the pleural effusion. No evidence of pneumothorax. IMPRESSION: 1. Small bilateral pleural effusions, left larger than right. 2. Mild left lower lobe infiltrate or atelectasis. 3. Old granulomatous disease. PROBLEM LIST Principal Problem: *Unspecified pleural effusion Active Problems: SOB (shortness of breath) Hypoxia Renal failure (ARF), acute on chronic Lymphocytic exudative effusion r/o rheumatoid lung with effusion, r/o infection as TB effus ion, r/o Fungal infection, r/o CHF r/o Exertional related Asthma. There was no evidence of m alignancy on cytology. H/O Rheumatoid arthritis on tumor necrosis factor for 3 years stopped in Apr 2011- presentl y on Hydroxychloroquine. H/O squamous cell skin cancer over right neck s/p excision PLAN Pleural fluid that was drained, 1.15 L in [facility] especially chemistry and culture reports will need to be followed. High-resolution CT scan of the chest will be ordered to be done in the morning. Sputum for fungal stain and culture, AFB smear and culture will be ordered. The patient will need to be put on respiratory isolation until we have the TB QuantiFERON testing in which results were negative. Echocardiogram, BMP, fungal serology, ESR, UNA profile especially cyclic peptide IgG will be ordered. For shortness of breath albuterol will be given p.r.n. The patient will be started on prednisone at 20 mg daily. We will start oxygen supplementation for shortness of breath especially at night and p.r.n. during the day. Code Status: Full Code Primary Care Physician: NATTY STEEN DO, DO Thank you for allowing me to participate in the care of this patient. ANTHONY SIGALA MD 11/14/2011 documented in this en counter ED Notes Conversion Transaction, Provider Unknown - 11/14/2011 1:51 PM PDTFormatting of this note m ight be different from the original. ED Notes by Enriqueta Casey RN at 11/14/11 1351 Author: Enriqueta Casey RN Service: (none) Author Type: Registered Nurse Filed: 11/14/11 1351 Date of Service: 11/14/11 1351 Status: Signed Correspondence Renew Clerk: Enriqueta Casey RN (Registered Nurse) Rt called for ABG with lactate Enriqueta Casey RN 11/14/11 135 Velma Santos DO - 11/14/2011 11:46 AM PDTFormatting of this note might be different from the or iginal. ED Provider Notes by Velma Kuhn DO at 11/14/11 1146 Author: Velma Kuhn DO Service: (none) Author Type: Physician Filed: 11/15/11 0619 Date of Service: 11/14/11 1146 Status: Signed Correspondence Renew Clerk: Velma Kuhn DO (Physician) Procedure Orders: 1. Critical Care [[id number]] ordered by Carol Villalobos at 11/14/11 1434 [facility] Department of Emergency Medicine History of Present Illness Patient Identification Jessie Gutiérrez is a 46 y.o. female. Patient information was obtained from patient. History/Exam limitations: none. Patient presented to the Emergency Department by: Car Chief Complaint Chief Complaint Patient presents with Shortness of Breath 'I have a plural effusion they drained 1.5 lliters off me yesterday but didnt say why it happened.I cant breathe" 11:48 AM The patient complains of sob. Onset of symptoms was 12, with a worsening course since that time. The symptoms are described to be of moderate to severe. The patient also compla ins of a fever, but has resolved, coughing and vomiting with coughing. Denies sputum product ion. The patient describes the quality and location of the symptoms as the following: upper respiratory. Drained R pleural effusion on Sat and they were unab Pt had an Xray, labs and an EKG done at [facility]. Pt was hospitalized on 11-09-11 and d/c home on 11-13-11. At that time she had 1L R pleural ef fusion drained. Past Medical History Diagnosis Date Rheumatoid arthritis Past Surgical History Procedure Date Gall stone removal Tumor removal Neck Tonsillectomy Cholecystectomy Prior to Admission medications Not on File No Known Allergies History Social History Marital Status: Spouse Name: N/A Number of Children: N/A Years of Education: N/A Occupational History Not on file. Social History Main Topics Smoking status: Former Smoker Smokeless tobacco: Not on file Comment: Quit about 2 months ago. Alcohol Use: No Drug Use: No Sexually Active: Other Topics Concern Not on file Social History Narrative No narrative on file Family History Problem Relation Age of Onset Diabetes type II Mother High cholesterol Father Diabetes type II Father Review of Systems Constitutional: Negative for fever. HENT: Negative for ear discharge. Respiratory: Positive for cough, shortness of breath and wheezing. Gastrointestinal: Positive for nausea and vomiting. Negative for abdominal pain. Musculoskeletal: Negative for back pain and falls. Skin: Negative. Neurological: Positive for dizziness. Negative for headaches. All other systems reviewed and are negative. Physical Exam BP 185/84 | Pulse 84 | Temp(Src) 98.1 F (36.7 C) (Oral) | Resp 22 | Ht 1.575 m (5' 2") | Wt 88.542 kg (195 lb 3.2 oz) | BMI 35.70 kg/m2 | SpO2 98% Vitals interpreted: Hypertensive Pulse Oximetry interpretation: Normal General: Alert, in no apparent distress Eyes: Normal inspection, pupils equal and round, non-icteric ENT: Ears normal Nose normal Pharynx normal Neck: Normal inspection Supple No lymphadenopathy No meningismus Cardiovascular: Rate and rhythm normal No murmurs Respiratory: Decreased breath sounds bilaterally worse at bases with minimal breath sounds. Dyspneic with accessory retractions. Abdomen: Soft, non-tender, non-distended No guarding or rebound Back: Normal inspection Skin: Color normal Warm and dry No rash Neuro: No motor deficit No sensory deficit Normal gait Medical Decision Making and Emergency Department Course ED Department Course Pt presents with sob. Recently dx with a R pleural effusion and had a thoracentesis perform ed at [facility]. 1L of fluid was drained. Pt is not hypoxic in ED. After introducing myself to the patient, I have performed a careful history and physical ex amination. I have formulated the differential diagnosis that needs to be addressed during t his Emergency Room visit, briefly discussed this differential with the patient, and then dis cussed with them the plan of care. I will order labs, repeat CXR and EKG. I will request rec ords from [facility]. Pt stable on re evaluation. Labs and imaging reviewed from [facility] and studies done in ED today. Labs and imaging d/w pt. Upon review of the patient s history, physical and the results of studies I believe that the patient warrants admission to the hospital for further evaluation and treatment. I have spoken with the patient regarding the need for admission to the hospital, and the patient h as expressed understanding of this. I will call and arrange for admission at this time. Case d/w Dr. Lorenz. Agrees to evaluate pt in ED. 2:[address] Lorenz here to evaluate pt. Records Reviewed Old medical records. records reviewed from [facility] CXR from 03-25-2008 IMPRESSION: PROBABLE R PLEURAL FLUID AND ATELECTASIS CXR FROM 11-09-11 CXR FROM 11-10-11 TIME 0732 PROBABLE CONGESTIVE FAILURE CHANGES CXR FROM 11-10-11 TIME 0920 THE GALLBLADDER IS OBSCURED BY SHADOWING, MOST LIKELY DUE TO THE PRESENCE OF STONES. POSITI VE SONOGRAPHIC CARPENTER'S SIGN. CXR FROM 11-11-11 TIME 0903 BIBASILAR OPACITY CONSISTENT WITH PNEUMONIA OR ATELECTASIS. SMALL BILATERAL PLEURAL EFFUSIO NS ARE SUSPECTED. QUESTION MILD CONGESTIVE FAILURE CXR FROM 11-12-11 TIME 0942 SLIGHTLY IMPROVED AERATION OF THE LUNGS CT WITHOUT CONTRAST 11-09-11 TIME 0733 RIGHT PLEURAL EFFUSION AND MODEST ATELECTASIS LIMITED ABDOMINAL U/S 11-10-11 TIME 0920 THE GALLBLADDER IS OBSCURED BY SHADOWING, MOST LIKELY DUE TO THE PRESENCE OF STONES. POSITI VE SONOGRAPHIC CARPENTER'S SIGN RETROPERITONEAL U/S 11-11-11 TIME 0748 MILD ECHOGENICITY OF THE KIDNEYS, WHICH MAY BE DUE TO RENAL FAILURE. NO HYDRONEPHROSIS OR O THER SIGNIFICANT PATHOLOGY. LABS FROM [facility] HCG NEGATIVE HGB 9.1 HCT 27.7 MCV 68.8 MCH 23 RDW 22.2 LYMPHOCYTES 10.7 EOSINOPHILS 7.5 BASOPHILS 2.6 LDH BODY FLUID 496 BLOOD GAS Ph 7.33 PCO2 29.0 PO2 105.0 HCO3 15.0 TCO2 15.9 CELL COUNT APPEARANCE RED/CLOUDY WBC 89 RBC 2189 PMN'S 5 MONONUCLEAR 95 SOURCE PLEURAL FLUID ABO GROUP + RH= A POSITIVE Laboratory Evaluation Results Procedure Component Value Ref Range Date/Time CBC with differential [[id number]] (Abnormal) Collected:11/14/111232 Order Status:Completed Updated:11/14/11 1313 Specimen Information:Blood WBC 11.8 (H) 3.8 - 11.0 K/uL RBC 4.32 3.70 - 5.10 M/uL HGB 9.5 (L) 11.3 - 15.5 g/dL HCT 30.5 (L) 34.0 - 46.0 % MCV 70.7 (L) 80.0 - 100.0 fl MCH 22.1 (L) 27.0 - 34.0 pg MCHC 31.2 (L) 32.0 - 35.5 g/dL RDW SD 56.9 (H) 37 - 53 fl PLT 432 (H) 150 - 400 K/uL MPV 8.3 fl DIFF TYPE AUTOMATED NEUTROPHILS 78.5 40 - 80 % LYMPHOCYTES 12.1 (L) 15 - 45 % MONOCYTES 6.3 0 - 12 % EOSINOPHILS 2.8 0 - 7 % BASOPHILS 0.3 0 - 2 % NEUTROPHILS ABS 9.3 (H) 2.0 - 7.3 K/uL LYMPHOCYTES ABS 1.4 1.0 - 3.4 K/uL MONOCYTES ABS 0.7 0 - 0.8 K/uL EOSINOPHILS ABS 0.3 0 - 0.5 K/uL BASOPHILS ABS 0.0 0 - 0.1 K/uL Platelet Estimate INCREASED MORPHOLOGY 2+ Comprehensive metabolic panel [[id number]] (Abnormal) Collected:11/14/111232 Order Status:Completed Updated:11/14/11 1259 Specimen Information:Blood SODIUM 141 135 - 143 mmol/L POTASSIUM 4.2 3.5 - 4.9 mmol/L CHLORIDE 112 (H) 99 - 109 mmol/L CO2 18 (L) 23 - 32 mmol/L ANION GAP AGAP 15 5 - 20 mmol/L GLUCOSE 92 65 - 99 mg/dL BUN 16 8 - 25 mg/dL CREATININE 2.42 (H) 0.50 - 1.00 mg/dL BUN/CREAT 7 CALCIUM 8.2 (L) 8.5 - 10.2 mg/dL TOTAL PROTEIN 8.0 6.3 - 8.2 g/dL Albumin 2.7 (L) 3.6 - 5.0 g/dL GLOBULIN 5.3 (H) 1.3 - 4.9 g/dL A/G 0.5 (L) 1.0 - 2.4 TBIL 0.3 0.1 - 1.5 mg/dL ALK PHOS 111 35 - 115 U/L AST 12 10 - 45 U/L ALT 31 10 - 65 U/L EGFR 23 (L) >60 mL/min/1.73m2 Lipase [[id number]] Collected:11/14/11 1233 Order Status:Completed Updated:11/14/11 1259 Specimen Information:Blood LIPASE 162 73 - 393 U/L aPTT [[id number]] Collected:11/14/11 1233 Order Status:Completed Updated:11/14/11 1258 Specimen Information:Blood APTT 35 25 - 37 seconds Protime [[id number]] Collected:11/14/11 1233 Order Status:Completed Updated:11/14/11 1257 Specimen Information:Blood INR 1.2 0.9 - 3.5 POC cardiac troponin [[id number]] Collected:11/14/11 1237 Order Status:Completed Updated:11/14/11 1252 POC CARDIAC TROPONIN 0.01 0.00 - 0.10 ng/mL 14:04 BLOOD GAS: PH: 7.354 PCO2 30.3 PO2 104 BEecf -9 HCO3 16.9 TC02 18 sO2 98% LAC 0.32 Radiology and EKG Evaluation Imaging Results X-ray chest 2 view frontal & lateral (Final result) Result time:11/14/11 1422 Final result by Rad Results In Robin (11/14/11 ) Narrative: JESSIEIRINEO GUTIÉRREZ XR CHEST 2 VIEW FRONTAL AND LATERAL 11/14/2011 12:10 PM HISTORY: Shortness of breath. TECHNIQUE: Two views of the chest. FINDINGS: No prior comparison available. There are small bilateral pleural effusions, left larger th an right. Heart size is probably upper limits of normal. A probable calcified granulomas i n the right lung base. There is mild left lower lobe atelectasis or infiltrate adjacent to the pleural effusion. No evidence of pneumothorax. IMPRESSION: 1. Small bilateral pleural effusions, left larger than right. 2. Mild left lower lobe infiltrate or atelectasis. 3. Old granulomatous disease. Interpretation Documented by Carol Villalobos (11/14/11 1422, [facility] Emergency Department, Emergency Medicine) LLL pulmonary effusion Probable R pleural effusion Possible LLL infiltrate, but more likely an effusion Interpreted by Velma Kuhn DO EKG Interpretation Time: 12:21 PM Rhythm: Sinus Ventricular Rate: 77 [place] Interval: Normal ST Segments: Normal Significant Q-waves: None Blocks: None Ogema: Normal Additional Comments: T wave inversion in lead III Unchanged from prior done on 11-10-11 ED Diagnoses Final diagnoses Pleural effusion Rheumatoid arthritis Dyspnea SOB (shortness of breath) Renal failure Disposition: Admit ED Disposition Admit/Observation Bed request special needs: None Diagnosis?: rheumatoid pulmonic effusion Additional Documentation Critical Care Performed by: VELMA KUHN Authorized by: VELMA KUHN Total critical care time: 35 minutes Critical care time was exclusive of separately billable procedures and treating other patie nts. Critical care was necessary to treat or prevent imminent or life-threatening deterioration of the following conditions: respiratory failure. Critical care was time spent personally by me on the following activities: blood draw for s pecimens, development of treatment plan with patient or surrogate, discussions with consulta nts, evaluation of patient's response to treatment, examination of patient, obtaining histor y from patient or surrogate, ordering and performing treatments and interventions, ordering and review of laboratory studies, ordering and review of radiographic studies, pulse oximetr y, re-evaluation of patient's condition and review of old charts. Subsequent provider of critical care: I assumed direction of critical care for this patient from another provider of my specialty. Attending Note: Documentation assistance provided by CAROL VILLALOBOS (Scribe). Information recorded by the scribe has been reviewed and validated by me. I ag ree with its contents. DO Velma Haas DO 11/15/11 0619 documented in this en counter Plan of Treatment Not on filedocumented as of this encounter Procedures + +--------+ + + + | Procedure Name | Priori | Date/Time | Associated Diagnosis | Comments | | | ty | | | | + +--------+ + + + | US RENAL LIMITED | Routin | 11/16/2011 | | Results for this | | | e | 1:15 PM | | procedure are in the | | | | PDT | | results section. | + +--------+ + + + | XR CHEST 1 VIEW | Routin | 11/16/2011 | | Results for this | | | e | 12:18 PM | | procedure are in the | | | | PDT | | results section. | + +--------+ + + + | CELL COUNT, BODY | Routin | 11/16/2011 | | Results for this | | FLUID | e | 12:00 PM | | procedure are in the | | | | PDT | | results section. | + +--------+ + + + | DEACON PREP | Timed | 11/16/2011 | | Results for this | | | | 11:58 AM | | procedure are in the | | | | PDT | | results section. | + +--------+ + + + | PH, BODY FLUID | Timed | 11/16/2011 | | Results for this | | | | 11:58 AM | | procedure are in the | | | | PDT | | results section. | + +--------+ + + + | CULTURE, FUNGUS | Timed | 11/16/2011 | | Results for this | | | | 11:57 AM | | procedure are in the | | | | PDT | | results section. | + +--------+ + + + | EXTERNAL LAB: | Timed | 11/16/2011 | | Results for this | | PROTEIN, TOTAL | | 11:54 AM | | procedure are in the | | | | PDT | | results section. | + +--------+ + + + | LACTATE | Timed | 11/16/2011 | | Results for this | | DEHYDROGENASE, BODY | | 11:54 AM | | procedure are in the | | FLUID | | PDT | | results section. | + +--------+ + + + | CULTURE, BODY FLUID, | Timed | 11/16/2011 | | Results for this | | STERILE, SMEAR, | | 11:54 AM | | procedure are in the | | WITH ANAEROBES | | PDT | | results section. | + +--------+ + + + | GLUCOSE, BODY FLUID | Timed | 11/16/2011 | | Results for this | | | | 11:54 AM | | procedure are in the | | | | PDT | | results section. | + +--------+ + + + | CULTURE, AFB, AND | Routin | 11/16/2011 | | Results for this | | SMEAR | e | 8:38 AM | | procedure are in the | | | | PDT | | results section. | + +--------+ + + + | ECHO COMPLETE | Routin | 11/15/2011 | | Results for this | | | e | 11:55 AM | | procedure are in the | | | | PDT | | results section. | + +--------+ + + + | GABBIE, AFB, AND | Routin | 11/15/2011 | | Results for this | | SMEAR | e | 11:00 AM | | procedure are in the | | | | PDT | | results section. | + +--------+ + + + | CT CHEST HIGH | Routin | 11/15/2011 | | Results for this | | RESOLUTION WO | e | 8:18 AM | | procedure are in the | | CONTRAST | | PDT | | results section. | + +--------+ + + + | CULTURE, AFB, AND | Timed | 11/15/2011 | | Results for this | | SMEAR | | 12:01 AM | | procedure are in the | | | | PDT | | results section. | + +--------+ + + + | GRAM STAIN, REFLEX | Timed | 11/15/2011 | | Results for this | | SPUTUM CULTURE | | 12:01 AM | | procedure are in the | | | | PDT | | results section. | + +--------+ + + + | DEACON PREP | Timed | 11/15/2011 | | Results for this | | | | 12:01 AM | | procedure are in the | | | | PDT | | results section. | + +--------+ + + + | CULTURE, FUNGUS | Timed | 11/15/2011 | | Results for this | | | | 12:01 AM | | procedure are in the | | | | PDT | | results section. | + +--------+ + + + | CULTURE, BLOOD, 2ND | Timed | 11/14/2011 | | Results for this | | SPECIMEN (NON-ORD) | | 1:32 PM | | procedure are in the | | | | PDT | | results section. | + +--------+ + + + | CULTURE, BLOOD | Timed | 11/14/2011 | | Results for this | | | | 12:33 PM | | procedure are in the | | | | PDT | | results section. | + +--------+ + + + | XR CHEST 2 VIEWS | Routin | 11/14/2011 | | Results for this | | | e | 12:17 PM | | procedure are in the | | | | PDT | | results section. | + +--------+ + + + documented in this encounter Results US Renal Limited (11/16/2011 1:15 PM PDT) + + | Specimen | + + | | + + + + + | Narrative | Performed At | + + + | JESSIE GUTIÉRREZ US KIDNEYS AND BLADDER HISTORY: 46 years. | | | Female. Abnormal lab values. TECHNIQUE: Sonographic evaluation | | | the kidneys and bladder. COMPARISON: None. FINDINGS: The | | | right kidney measures 10.2 x 5.7 x 4.9 cm. The left kidney measures | | | 12.3 x 5.3 x 6.2 cm. The kidneys have a normal cortical echotexture | | | without hydronephrosis. Pre-void bladder volume is 27 cc. The | | | patient voided prior to the procedure. Bilateral ureteral jets are | | | visualized. IMPRESSION: 1. Negative for hydronephrosis. | | | | | + + + + + | Procedure Note | + + | Jayme Kelly - 01/02/2019 7:47 AM PDT JSESIE WALSH KIDNEYS AND BLADDER | | HISTORY:46 years. Female. Abnormal lab values. TECHNIQUE:Sonographic evaluation the | | kidneys and bladder. COMPARISON:None. FINDINGS:The right kidney measures 10.2 x 5.7 x | | 4.9 cm. The left kidney measures 12.3 x 5.3 x 6.2 cm. The kidneys have a normal cortical | | echotexture without hydronephrosis. Pre-void bladder volume is 27 cc. The patient | | voided prior to the procedure. Bilateral ureteral jets are visualized. IMPRESSION:1. | | Negative for hydronephrosis. | | 12:02 PM | | | |COMPARISON: | |None. | | | |FINDINGS: | |The right kidney measures 10.2 x 5.7 x 4.9 cm. The left kidney measures 12.3 x 5.3 x 6.2 cm . The kidneys have a normal cortical echotexture without hydronephrosis. | | | |Pre-void bladder volume is 27 cc. The patient voided prior to the procedure. Bilateral uret eral jets are visualized. | | | |IMPRESSION: | |1. Negative for hydronephrosis. | | | | | + + XR Chest 1 Vw (11/16/2011 12:18 PM PDT) + + | Specimen | + + | | + + + + + | Narrative | Performed At | + + + | JESSIE GUTIÉRREZ XR CHEST 1 VIEW HISTORY: 46 years. Female. | | | Postthoracentesis. TECHNIQUE: Single portable anterior view of | | | the chest was obtained. COMPARISON: 11/14/2011 FINDINGS: The | | | heart is normal in size . Small left-sided pleural effusion has mildly | | | improved from previous exam. Tiny right-sided pleural effusion. Low | | | lung volumes. Mild pulmonary vascular congestion. No pneumothorax. | | | IMPRESSION: 1. Small left-sided pleural effusion improved from | | | prior exam. 2. Mild pulmonary vascular congestion. 3. Tiny | | | right-sided pleural effusion. | | + + + + + | Procedure Note | + + | Jayme Kelly Conversion - 01/02/2019 7:47 AM PDT JESSIE MARIO CHEST 1 VIEW HISTORY:46 | | years. Female. Postthoracentesis. TECHNIQUE: Single portable anterior view of the chest | | was obtained. COMPARISON:11/14/2011 FINDINGS:The heart is normal in size . Small | | left-sided pleural effusion has mildly improved from previous exam. Tiny right-sided | | pleural effusion. Low lung volumes. Mild pulmonary vascular congestion. No pneumothorax. | | IMPRESSION:1. Small left-sided pleural effusion improved from prior exam.2. Mild | | pulmonary vascular congestion.3. Tiny right-sided pleural effusion. Electronically | | signed by Alban Heredia DO on 11/16/2011 1:43 PM | | | |COMPARISON: | |11/14/2011 | | | |FINDINGS: | |The heart is normal in size . Small left-sided pleural effusion has mildly improved from pr evious exam. Tiny right-sided pleural effusion. Low lung volumes. Mild pulmonary vascular co ngestion. No pneumothorax. | | | |IMPRESSION: | |1. Small left-sided pleural effusion improved from prior exam. | |2. Mild pulmonary vascular congestion. | |3. Tiny right-sided pleural effusion. | | | | | + + Cell Count, Body Fluid (11/16/2011 12:00 PM PDT) + + | Specimen | + + | | + + + + + | Narrative | Performed At | + + + | FLUID TYPE PLEURAL FLUID | EXTERNAL LAB | | Testing performed at [facility] [address] [address] COLOR | | | RED Testing | | | performed at [facility] [address];[place] [address] APPEARANCE | | | CLOUDY Testing performed at [facility] | | | [address];[place] [address] RBC'S | | | [address] Testing performed at [facility] [address];[place] [address] TOTAL NUCLEATED CELLS 9680 | | | Testing performed at [facility] [address];[place] [address] | | | NEUTROPHILS 18 Testing | | | performed at [facility] [address];[place] [address] LYMPHOCYTES | | | 70 Testing performed at | | | [facility] [address];[place] [address] MONOCYTES/MACROPHAGES | | | 10 Testing performed at [facility] [address];[place] [address] EOSINOPHILS | | | 2 Testing performed at [facility], [place] | | | [address] CELLS COUNTED 100 | | | Testing performed at [facility];[address] [place] [address];[place] [address] | | + + + + +---------+ + + | Performing | Address | City/State/Zipcode | Phone Number | | Organization | | | | + +---------+ + + | EXTERNAL LAB | | | | + +---------+ + + DEACON Prep (11/16/2011 11:58 AM PDT) + + | Specimen | + + | Urine specimen | | (specimen) | + + + + + | Narrative | Performed At | + + + | Specimen Description PLEURAL FLUID | EXTERNAL LAB | | Testing performed at [facility];[address];[place] [address] DEACON PREP | | | NO YEAST OR FUNGAL ELEMENTS SEEN | | | Testing performed at [facility], [address] | | | [place] [address] REPORT STATUS | | | 11/16/2011 FINAL | | + + + + +---------+ + + | Performing | Address | City/State/Zipcode | Phone Number | | Organization | | | | + +---------+ + + | EXTERNAL LAB | | | | + +---------+ + + PH, Body Fluid (11/16/2011 11:58 AM PDT) + + | Specimen | + + | Body fluid sample | | (specimen) | + + + + + | Narrative | Performed At | + + + | FLUID PH 7.32 | EXTERNAL LAB | | Testing performed at [facility];[address] [place] [address];[place] [address] | | + + + + +---------+ + + | Performing | Address | City/State/Zipcode | Phone Number | | Organization | | | | + +---------+ + + | EXTERNAL LAB | | | | + +---------+ + + Culture, Fungus (11/16/2011 11:57 AM PDT) + + | Specimen | + + | | + + + + + | Narrative | Performed At | + + + | Specimen Description PLEURAL FLUID | EXTERNAL LAB | | Testing performed at [facility];[address] | | [facility];[place] [address] CULTURE | | | NO FUNGUS ISOLATED | | | Testing performed at [facility], [address] [facility], | | | [place] [address] REPORT STATUS | | | 12/05/2011 FINAL | | + + + + +---------+ + + | Performing | Address | City/State/Zipcode | Phone Number | | Organization | | | | + +---------+ + + | EXTERNAL LAB | | | | + +---------+ + + Culture, Body Fluid, Sterile, Smear, with Anaerobes (11/16/2011 11:54 AM PDT) + + | Specimen | + + | Body fluid sample | | (specimen) | + + + + + | Narrative | Performed At | + + + | Specimen Description PLEURAL FLUID | EXTERNAL LAB | | Testing performed at [facility];[address] | | | [facility];[place] [address] GRAM STAIN | | | 1+ WBC'S SEEN | | | NO ORGANISMS SEEN | | | Testing performed at [facility], [address] [facility], [place], [place] | | | [address] CULTURE NO GROWTH 4 | | | DAYS Testing | | | performed at [facility], [address] [place] [address] | | | REPORT STATUS 11/20/2011 FINAL | | + + + + +---------+ + + | Performing | Address | City/State/Zipcode | Phone Number | | Organization | | | | + +---------+ + + | EXTERNAL LAB | | | | + +---------+ + + External Lab: Protein, Total (11/16/2011 11:54 AM PDT) + + | Specimen | + + | Body fluid sample | | (specimen) | + + + + + | Narrative | Performed At | + + + | FLUID TOTAL PROTEIN 4.8 This is | EXTERNAL LAB | | not a antique dealer validated sample type for this method. No | | | reference ranges have been established. Testing performed at [facility] | | | [facility];[place] [address] FLUID TP SOURCE | | | PLEURAL FLUID Testing performed at [facility] [address] | | | [facility];[place] [address] | | + + + + +---------+ + + | Performing | Address | City/State/Zipcode | Phone Number | | Organization | | | | + +---------+ + + | EXTERNAL LAB | | | | + +---------+ + + Lactate Dehydrogenase, Body Fluid (11/16/2011 11:54 AM PDT) + + | Specimen | + + | Body fluid sample | | (specimen) | + + + + + | Narrative | Performed At | + + + | FLUID LDH 433 This | EXTERNAL LAB | | is not a antique dealer validated sample type for this method. No | | | reference ranges have been established. Testing performed at [facility];[address] | | | [facility];[place] [address] | | + + + + +---------+ + + | Performing | Address | City/State/Zipcode | Phone Number | | Organization | | | | + +---------+ + + | EXTERNAL LAB | | | | + +---------+ + + Glucose, Body Fluid (11/16/2011 11:54 AM PDT) + + | Specimen | + + | Body fluid sample | | (specimen) | + + + + + | Narrative | Performed At | + + + | FLUID GLUCOSE 113 This is | EXTERNAL LAB | | not a antique dealer validated sample type for this method. No | | | reference ranges have been established. Testing performed at [facility];[address] | | | [facility];[place] [address] Glucose, Fluid Type | | | PLEURAL FLUID Testing performed at [facility];[address] [facility];[place], [place] | | | [address] | | + + + + +---------+ + + | Performing | Address | City/State/Zipcode | Phone Number | | Organization | | | | + +---------+ + + | EXTERNAL LAB | | | | + +---------+ + + Culture, AFB, and Smear (11/16/2011 8:38 AM PDT) + + | Specimen | + + | Body fluid sample | | (specimen) | + + + + + | Narrative | Performed At | + + + | Specimen Description SPUTUM | EXTERNAL LAB | | Testing performed at [facility];[address] | | | [facility];[place] [address] AFB STAIN | | | NO ACID FAST BACILLI SEEN | | | Testing performed at [facility], [address] [place] [address], | | | [place] [address] CULTURE | | | NO ACID FAST BACILLI ISOLATED | | | Testing performed at [facility], [address] [place] [address], | | | [place] [address] REPORT STATUS | | | 12/31/2011 FINAL | | + + + + +---------+ + + | Performing | Address | City/State/Zipcode | Phone Number | | Organization | | | | + +---------+ + + | EXTERNAL LAB | | | | + +---------+ + + ECHO Complete (11/15/2011 11:55 AM PDT) + + | Specimen | + + | | + + + + + | Narrative | Performed At | + + + | Patient Name: JESSIE GUTIÉRREZ Date of : 1965 | | | Performing Physician: Nathanael Magdaleno MD | | | | | | INDICATIONS CHF TB ISOLATION CONCLUSIONS | | | 1. Overall left ventricular systolic function is normal | | | with, an EF between 65 - 70 %. 2. There is mild concentric left | | | ventricular hypertrophy. 3. Mild tricuspid regurgitation present. 4. | | | Right ventricular systolic pressure (pulmonary artery systolic | | | pressure) is normal at < 35 mmHg. 5. There is no pericardial | | | effusion. FINDINGS -------- ECG rhythm: Sinus rhythm. Study: A | | | 2-dimensional transthoracic echocardiogram with m-mode, spectral and | | | color flow Doppler was perfomed. Study: This was a technically | | | adequate study with suboptimal parasternal views. Left Ventricle: | | | Overall left ventricular systolic function is normal with, an EF | | | between 65 - 70 %. Left Ventricle: There is mild concentric left | | | ventricular hypertrophy. Right Ventricle: The right ventricle is | | | mildly enlarged measuring between 3.4 - 3.7 cm. Left Atrium: The left | | | atrium is normal in size. Right Atrium: The right atrium is mildly | | | enlarged. Aortic Valve: The aortic valve is trileaflet, and appears | | | anatomically normal. No aortic stenosis or regurgitation. Mitral | | | Valve: The mitral valve is normal. Mitral Valve: There is trace | | | mitral regurgitation. Tricuspid Valve: The tricuspid valve appears | | | structurally normal. Tricuspid Valve: Mild tricuspid regurgitation | | | present. Tricuspid Valve: Right ventricular systolic pressure | | | (pulmonary artery systolic pressure) is normal at < 35 mmHg. Pulmonic | | | Valve: The pulmonic valve was not well visualized. Pericardium: | | | There is no pericardial effusion. IVC/Hepatic Veins: The IVC is | | | normal size (1.5-2.5cm) and collapses >50% with sniff, consistent with | | | central venous pressures of 5-10mmHg. Thrombus: No clot visualized | | | MEASUREMENTS IVC: 1.69 cm LA Major: 5.71 cm | | | EDV(Teich): 80.40 ml IVSd: 1.24 cm LVIDd: 4.24 cm LVPWd: | | | 1.03 cm LVOT Diam: 1.76 cm %FS: 36.23 % EF(Teich): | | | 66.27 % ESV(Teich): 27.11 ml IVSs: 1.25 cm LVIDs: 2.70 cm | | | LVPWs: 1.89 cm SV(Teich): 53.28 ml RA Major: 5.43 cm | | | RVIDd: 3.67 cm LVEF MOD A4C: 68.09 % SV MOD A4C: 58.69 ml | | | LVEDV MOD A4C: 86.19 ml LVLd A4C: 7.16 cm LVESV MOD A4C: | | | 27.49 ml LVLs A4C: 6.04 cm LAESV(A-L): 65.33 ml LAESV Index | | | (A-L): 34.56 ml/m2 LAAs A2C: 20.29 cm2 LAESV A-L A2C: 62.80 | | | ml LALs A2C: 5.56 cm LAAs A4C: 21.11 cm2 LAESV A-L A4C: | | | 67.11 ml LALs A4C: 5.63 cm Ao Diam: 2.95 cm AV Cusp: 1.86 | | | cm LA Diam: 3.61 cm LA/Ao: 1.22 IVC diameter: 1.48 cm IVC | | | collapse: 0.63 cm IVC % collapse: 55.65 % HR: 74.65 BPM | | | AV maxP.05 mmHg AV meanP.93 mmHg AV Vmax: 2.00 m/s | | | AV Vmean: 1.33 m/s AV VTI: 43.48 cm JAQUELIN Vmax: 1.52 cm2 | | | JAQUELIN (VTI): 1.53 cm2 LVCI Dopp: 2.55 l/minm2 LVCO Dopp: 4.83 | | | l/min HR: 72.29 BPM LVOT maxP.28 mmHg LVOT meanPG: | | | 3.03 mmHg LVSI Dopp: 35.35 ml/m2 LVSV Dopp: 66.82 ml LVOT | | | Vmax: 1.25 m/s LVOT Vmean: 0.80 m/s LVOT VTI: 27.35 cm | | | MCO: 410.35 ms MV A Dallas: 0.73 m/s MV DecT: 198.95 ms MV E | | | [place]: 1.29 m/s MV E/A Ratio: 1.76 MV PHT: 53.96 ms MVA By | | | PHT: 4.07 cm2 MV A Dur: 110.90 ms MV maxP.19 mmHg MV | | | meanP.00 mmHg MV Vmax: 1.43 m/s MV Vmean: 0.78 m/s MV | | | VTI: 32.41 cm MVA (VTI): 2.06 cm2 Septal e': 0.08 m/s | | | Septal E/e': 14.90 Lateral e': 0.10 m/s Lateral E/e': 12.61 | | | P Vein A: 0.26 m/s P Vein A Dur: 85.02 ms P Vein D: 0.44 | | | m/s P Vein S/D Ratio: 1.76 P Vein S: 0.78 m/s HR: 69.06 | | | BPM PV maxP.25 mmHg PV meanP.56 mmHg PV Vmax: 0.90 | | | m/s PV Vmean: 0.58 m/s PV VTI: 21.46 cm RAP: 5 mmHg | | | RVSP: 34.84 mmHg TR maxP.84 mmHg TR Vmax: 2.73 m/s TV | | | A [place]: 0.59 m/s TV Dec [place]: 3.75 m/s2 TV Dec Time: | | | 209.78 ms TV E [place]: 0.78 m/s TV E/A Ratio: 1.32 | | | Fuel Cell Binder: [id number] Authenticated by: Nathanael Magdaleno MD Report Date/Time: | | | 11-15-2011 15:50:41 | | + + + + + | Procedure Note | + + | Jayme Kelly Conversion - 01/02/2019 7:47 AM PDT Patient Name: Meredith GUTIÉRREZ | | : 1965 Performing Physician: Nathanael Magdaleno | | INDICATIONS C | | HF TB ISOLATION CONCLUSIONS 1. Overall left ventricular systolic function is | | normal with, an EF between 65 - 70 %.2. There is mild concentric left ventricular | | hypertrophy.3. Mild tricuspid regurgitation present.4. Right ventricular systolic | | pressure (pulmonary artery systolic pressure) is normal at < 35 mmHg.5. There is no | | pericardial effusion. FINDINGS--------ECG rhythm: Sinus rhythm.Study: A 2-dimensional | | transthoracic echocardiogram with m-mode, spectral and color flow Doppler was | | perfomed.Study: This was a technically adequate study with suboptimal parasternal | | views.Left Ventricle: Overall left ventricular systolic function is normal with, an EF | | between 65 - 70 %.Left Ventricle: There is mild concentric left ventricular | | hypertrophy.Right Ventricle: The right ventricle is mildly enlarged measuring between | | 3.4 - 3.7 cm.Left Atrium: The left atrium is normal in size.Right Atrium: The right | | atrium is mildly enlarged.Aortic Valve: The aortic valve is trileaflet, and appears | | anatomically normal. No aortic stenosis or regurgitation.Mitral Valve: The mitral valve | | is normal.Mitral Valve: There is trace mitral regurgitation.Tricuspid Valve: The | | tricuspid valve appears structurally normal.Tricuspid Valve: Mild tricuspid | | regurgitation present.Tricuspid Valve: Right ventricular systolic pressure (pulmonary | | artery systolic pressure) is normal at < 35 mmHg.Pulmonic Valve: The pulmonic valve was | | not well visualized.Pericardium: There is no pericardial effusion.IVC/Hepatic Veins: The | | IVC is normal size (1.5-2.5cm) and collapses >50% with sniff, consistent with central | | venous pressures of 5-10mmHg.Thrombus: No clot visualized MEASUREMENTS IVC: | | 1.69 cmLA Major: 5.71 cmEDV(Teich): 80.40 mlIVSd: 1.24 cmLVIDd: 4.24 cmLVPWd: | | 1.03 cmLVOT Diam: 1.76 cm%FS: 36.23 %EF(Teich): 66.27 %ESV(Teich): 27.11 | | mlIVSs: 1.25 cmLVIDs: 2.70 cmLVPWs: 1.89 cmSV(Teich): 53.28 mlRA Major: 5.43 | | cmRVIDd: 3.67 cmLVEF MOD A4C: 68.09 %SV MOD A4C: 58.69 mlLVEDV MOD A4C: 86.19 | | mlLVLd A4C: 7.16 cmLVESV MOD A4C: 27.49 mlLVLs A4C: 6.04 cmLAESV(A-L): 65.33 | | mlLAESV Index (A-L): 34.56 ml/m2LAAs A2C: 20.29 [id number] A-L A2C: 62.80 mlLALs | | A2C: 5.56 cmLAAs A4C: 21.11 [id number] A-L A4C: 67.11 mlLALs A4C: 5.63 cmAo Diam: | | 2.95 cmAV Cusp: 1.86 cmLA Diam: 3.61 cmLA/Ao: 1.22IVC diameter: 1.48 cmIVC | | collapse: 0.63 cmIVC % collapse: 55.65 %HR: 74.65 BPMAV maxP.05 mmHgAV | | meanP.93 mmHgAV Vmax: 2.00 m/Mohsen Vmean: 1.33 m/Mohsen VTI: 43.48 cmAVA Vmax: | | 1.52 cm2AVA (VTI): 1.53 [id number] Dopp: 2.55 l/vpvf9VINT Dopp: 4.83 l/minHR: 72.29 | | BPMLVOT maxP.28 mmHgLVOT meanP.03 mmHgLVSI Dopp: 35.35 ml/m2LVSV Dopp: | | 66.82 mlLVOT Vmax: 1.25 m/sLVOT Vmean: 0.80 m/sLVOT VTI: 27.35 cmMCO: 410.35 | | msMV A [place]: 0.73 m/sMV DecT: 198.95 msMV E [place]: 1.29 m/sMV E/A Ratio: 1.76MV | | PHT: 53.96 msMVA By PHT: 4.07 cm2MV A Dur: 110.90 msMV maxP.19 mmHgMV | | meanP.00 mmHgMV Vmax: 1.43 m/sMV Vmean: 0.78 m/sMV VTI: 32.41 cmMVA (VTI): | | 2.06 [id number] e': 0.08 m/sSeptal E/e': 14.90Lateral e': 0.10 m/sLateral E/e': | | 12.61P Vein A: 0.26 m/sP Vein A Dur: 85.02 msP Vein D: 0.44 m/sP Vein S/D Ratio: | | 1.76P Vein S: 0.78 m/sHR: 69.06 BPMPV maxP.25 mmHgPV meanP.56 mmHgPV | | Vmax: 0.90 m/sPV Vmean: 0.58 m/sPV VTI: 21.46 cmRAP: 5 mmHgRVSP: 34.84 mmHgTR | | maxP.84 mmHgTR Vmax: 2.73 m/sTV A [place]: 0.59 m/sTV Dec [place]: 3.75 m/s2TV | | Dec Time: 209.78 msTV E [place]: 0.78 m/sTV E/A Ratio: 1.32 Fuel Cell Binder: | | [id number] by: Nathanael Magdaleno MDReport Date/Time: 11-15-2011 15:50:41 | |IVSd: 1.24 cm | |LVIDd: 4.24 cm | |LVPWd: 1.03 cm | |LVOT Diam: 1.76 cm | |%FS: 36.23 % | |EF(Teich): 66.27 % | |ESV(Teich): 27.11 ml | |IVSs: 1.25 cm | |LVIDs: 2.70 cm | |LVPWs: 1.89 cm | |SV(Teich): 53.28 ml | |RA Major: 5.43 cm | |RVIDd: 3.67 cm | |LVEF MOD A4C: 68.09 % | |SV MOD A4C: 58.69 ml | |LVEDV MOD A4C: 86.19 ml | |LVLd A4C: 7.16 cm | |LVESV MOD A4C: 27.49 ml | |LVLs A4C: 6.04 cm | |LAESV(A-L): 65.33 ml | |LAESV Index (A-L): 34.56 ml/m2 | |LAAs A2C: 20.29 cm2 | |LAESV A-L A2C: 62.80 ml | |LALs A2C: 5.56 cm | |LAAs A4C: 21.11 cm2 | |LAESV A-L A4C: 67.11 ml | |LALs A4C: 5.63 cm | |Ao Diam: 2.95 cm | |AV Cusp: 1.86 cm | |LA Diam: 3.61 cm | |LA/Ao: 1.22 | |IVC diameter: 1.48 cm | |IVC collapse: 0.63 cm | |IVC % collapse: 55.65 % | |HR: 74.65 BPM | |AV maxP.05 mmHg | |AV meanP.93 mmHg | |AV Vmax: 2.00 m/s | |AV Vmean: 1.33 m/s | |AV VTI: 43.48 cm | |JAQUELIN Vmax: 1.52 cm2 | |JAQUELIN (VTI): 1.53 cm2 | |LVCI Dopp: 2.55 l/minm2 | |LVCO Dopp: 4.83 l/min | |HR: 72.29 BPM | |LVOT maxP.28 mmHg | |LVOT meanP.03 mmHg | |LVSI Dopp: 35.35 ml/m2 | |LVSV Dopp: 66.82 ml | |LVOT Vmax: 1.25 m/s | |LVOT Vmean: 0.80 m/s | |LVOT VTI: 27.35 cm | |MCO: 410.35 ms | |MV A [place]: 0.73 m/s | |MV DecT: 198.95 ms | |MV E [place]: 1.29 m/s | |MV E/A Ratio: 1.76 | |MV PHT: 53.96 ms | |MVA By PHT: 4.07 cm2 | |MV A Dur: 110.90 ms | |MV maxP.19 mmHg | |MV meanP.00 mmHg | |MV Vmax: 1.43 m/s | |MV Vmean: 0.78 m/s | |MV VTI: 32.41 cm | |MVA (VTI): 2.06 cm2 | |Septal e': 0.08 m/s | |Septal E/e': 14.90 | |Lateral e': 0.10 m/s | |Lateral E/e': 12.61 | |P Vein A: 0.26 m/s | |P Vein A Dur: 85.02 ms | |P Vein D: 0.44 m/s | |P Vein S/D Ratio: 1.76 | |P Vein S: 0.78 m/s | |HR: 69.06 BPM | |PV maxP.25 mmHg | |PV meanP.56 mmHg | |PV Vmax: 0.90 m/s | |PV Vmean: 0.58 m/s | |PV VTI: 21.46 cm | |RAP: 5 mmHg | |RVSP: 34.84 mmHg | |TR maxP.84 mmHg | |TR Vmax: 2.73 m/s | |TV A [place]: 0.59 m/s | |TV Dec [place]: 3.75 m/s2 | |TV Dec Time: 209.78 ms | |TV E [place]: 0.78 m/s | |TV E/A Ratio: 1.32 | | | |Fuel Cell Binder: [id number] | |Authenticated by: Nathanael Magdaleno MD | |Report Date/Time: 11-15-2011 15:50:41 | + + Culture, AFB, and Smear (11/15/2011 11:00 AM PDT) + + | Specimen | + + | Body fluid sample | | (specimen) | + + + + + | Narrative | Performed At | + + + | Specimen Description SPUTUM | EXTERNAL LAB | | Testing performed at [facility];[address] | | | [facility];[place] [address] AFB STAIN | | | NO ACID FAST BACILLI SEEN | | | Testing performed at [facility], [facility] [address] [facility], | | | [place] [address] CULTURE | | | NO ACID FAST BACILLI ISOLATED | | | Testing performed at [facility], [address], | | | [place] [address] REPORT STATUS | | | 12/31/2011 FINAL | | + + + + +---------+ + + | Performing | Address | City/State/Zipcode | Phone Number | | Organization | | | | + +---------+ + + | EXTERNAL LAB | | | | + +---------+ + + CT Chest High Resolution WO Contrast (11/15/2011 8:18 AM PDT) + + | Specimen | + + | | + + + + + | Narrative | Performed At | + + + | [facility] [address] CHEST HIGH RESOLUTION | | | 11/15/2011 8:03 AM HISTORY: History of rheumatoid lung, concern for | | | tuberculosis COMPARISON: None TECHNIQUE: CT scan of the chest | | | without contrast. High resolution chest CT. 5 mm thick helically | | | acquired axial images were obtained of the chest. 1 mm thick axial | | | images were obtained for the high-resolution portion with inspiration, | | | expiration in supine and prone position. FINDINGS: The | | | visualized thyroid gland is normal in appearance. No cervical | | | adenopathy is demonstrated. A prominent right paratracheal lymph | | | node is present measuring 17.8-mm in length on image 19 series 5. A | | | prominent subcarinal lymph node measures 16.8-mm in length on image | | | 26. The heart is normal in size. No pericardial effusion is | | | demonstrated. The trachea and esophagus are intact and normal in | | | appearance. Bilateral small pleural effusions are present. No | | | pneumothorax is demonstrated. Some scarring or atelectasis is noted | | | laterally in the right upper lobe. No cavitary process is | | | demonstrated. No focal airspace consolidation is present. Patchy | | | atelectasis of the left lower lobe is demonstrated due to compression | | | related to the pleural effusion. No evidence of interstitial | | | fibrosis. No evidence of air trapping. No aggressive lytic or | | | blastic lesions are present. No acute rib fractures are noted. The | | | liver is smooth in contour. The gallbladder is surgically absent. | | | The adrenals and spleen are normal in appearance. The visualized | | | pancreas is normal. No free air is demonstrated. IMPRESSION: | | | 1. No evidence of primary or reactivation tuberculosis. 2. There | | | are bilateral small pleural effusions demonstrated of unclear | | | etiology. This may be a potential manifestation of rheumatoid lung | | | disease. 3. Scattered mildly prominent mediastinal lymph nodes | | | which may be related to underlying history of rheumatoid lung disease | | | as well. | | | 8:29 AM | | + + + + + | Procedure Note | + + | Robin, Rad Conversion - 01/02/2019 7:47 AM PDT JESSIE GUTIÉRREZ1965 46 years FemaleCT | | CHEST HIGH RESOLUTION11/15/2011 8:03 AM HISTORY: History of rheumatoid lung, concern for | | tuberculosis COMPARISON: None TECHNIQUE: CT scan of the chest without contrast. High | | resolution chest CT. 5 mm thick helically acquired axial images were obtained of the | | chest. 1 mm thick axial images were obtained for the high-resolution portion with | | inspiration, expiration in supine and prone position. FINDINGS: The visualized thyroid | | gland is normal in appearance. No cervical adenopathy is demonstrated. A prominent | | right paratracheal lymph node is present measuring 17.8-mm in length on image 19 series | | 5. A prominent subcarinal lymph node measures 16.8-mm in length on image 26. The heart | | is normal in size. No pericardial effusion is demonstrated. The trachea and esophagus | | are intact and normal in appearance. Bilateral small pleural effusions are present. No | | pneumothorax is demonstrated. Some scarring or atelectasis is noted laterally in the | | right upper lobe. No cavitary process is demonstrated. No focal airspace consolidation | | is present. Patchy atelectasis of the left lower lobe is demonstrated due to | | compression related to the pleural effusion. No evidence of interstitial fibrosis. No | | evidence of air trapping. No aggressive lytic or blastic lesions are present. No acute | | rib fractures are noted. The liver is smooth in contour. The gallbladder is surgically | | absent. The adrenals and spleen are normal in appearance. The visualized pancreas is | | normal. No free air is demonstrated. IMPRESSION:1. No evidence of primary or | | reactivation tuberculosis.2. There are bilateral small pleural effusions demonstrated | | of unclear etiology. This may be a potential manifestation of rheumatoid lung | | disease.3. Scattered mildly prominent mediastinal lymph nodes which may be related to | | underlying history of rheumatoid lung disease as well. | |IMPRESSION: | |1. No evidence of primary or reactivation tuberculosis. | |2. There are bilateral small pleural effusions demonstrated of unclear etiology. This may be a potential manifestation of rheumatoid lung disease. | |3. Scattered mildly prominent mediastinal lymph nodes which may be related to underlying h istory of rheumatoid lung disease as well. | | | | | + + Culture, AFB, and Smear (11/15/2011 12:01 AM PDT) + + | Specimen | + + | Body fluid sample | | (specimen) | + + + + + | Narrative | Performed At | + + + | Specimen Description SPUTUM | EXTERNAL LAB | | Testing performed at [facility];[address] | | | [facility];[place] [address] AFB STAIN | | | NO ACID FAST BACILLI SEEN | | | Testing performed at [facility], [address], | | | [place] [address] CULTURE | | | NO ACID FAST BACILLI ISOLATED | | | Testing performed at [facility], [address] [place] [address], | | | [place] [address] REPORT STATUS | | | 12/31/2011 FINAL | | + + + + +---------+ + + | Performing | Address | City/State/Zipcode | Phone Number | | Organization | | | | + +---------+ + + | EXTERNAL LAB | | | | + +---------+ + + Gram Stain, reflex Sputum Culture (11/15/2011 12:01 AM PDT) + + | Specimen | + + | Body fluid sample | | (specimen) | + + + + + | Narrative | Performed At | + + + | Specimen Description SPUTUM | EXTERNAL LAB | | Testing performed at [facility];[address] | | | [facility];[place] [address] GRAM STAIN | | | GREATER THAN 10 WBCS/LPF | | | LESS THAN 10 SEC/LPF | | | 1+ GRAM POSITIVE COCCI | | | 1+ GRAM POSITIVE RODS | | | 1+ YEAST | | | Testing performed at [facility], [address] [facility] | | | [place] [address] CULTURE | | | 3+ JAH ALBICANSAbnormal | | | 1+ NORMAL UPPER RESPIRATORY DARÍO | | | Testing performed at [facility], [address] | | | [facility] [place] [address] REPORT STATUS | | | 11/16/2011 FINAL | | + + + + +---------+ + + | Performing | Address | City/State/Zipcode | Phone Number | | Organization | | | | + +---------+ + + | EXTERNAL LAB | | | | + +---------+ + + DEACON Prep (11/15/2011 12:01 AM PDT) + + | Specimen | + + | Urine specimen | | (specimen) | + + + + + | Narrative | Performed At | + + + | Specimen Description SPUTUM | EXTERNAL LAB | | Testing performed at [facility];[address] | | | [facility];[place] [address] DEACON PREP | | | NO YEAST OR FUNGAL ELEMENTS SEEN | | | Testing performed at [facility], [address] [facility] | | | [facility], [place] [address] REPORT STATUS | | | 11/16/2011 FINAL | | + + + + +---------+ + + | Performing | Address | City/State/Zipcode | Phone Number | | Organization | | | | + +---------+ + + | EXTERNAL LAB | | | | + +---------+ + + Culture, Fungus (11/15/2011 12:01 AM PDT) + + | Specimen | + + | | + + + + + | Narrative | Performed At | + + + | Specimen Description SPUTUM | EXTERNAL LAB | | Testing performed at [facility];[address] | | | [facility];[place] [address] CULTURE | | | 3+ YEAST ISOLATEDAbnormal | | | FOR ID SEE SPUTUM CULTURE [id number] FROM SAME DATE AND | | | TIME Testing | | | performed at [facility], [address] [place] [address] | | | REPORT STATUS 11/20/2011 FINAL | | + + + + +---------+ + + | Performing | Address | City/State/Zipcode | Phone Number | | Organization | | | | + +---------+ + + | EXTERNAL LAB | | | | + +---------+ + + Culture, Blood, 2nd Specimen (11/14/2011 1:32 PM PDT) + + | Specimen | + + | Blood specimen | | (specimen) | + + + + + | Narrative | Performed At | + + + | Specimen Description BLOOD CULTURE | EXTERNAL LAB | | NO GROWTH IN 5 DAYS. | | | Testing performed at [facility];[address] | | | [facility];[place] [address] REPORT STATUS | | | 11/20/2011 FINAL | | + + + + +---------+ + + | Performing | Address | City/State/Zipcode | Phone Number | | Organization | | | | + +---------+ + + | EXTERNAL LAB | | | | + +---------+ + + Culture, Blood (11/14/2011 12:33 PM PDT) + + | Specimen | + + | Blood specimen | | (specimen) | + + + + + | Narrative | Performed At | + + + | Specimen Description BLOOD SPECIAL | EXTERNAL LAB | | REQUESTS LAC | | | Testing performed at [facility];[address];[place] [address] CULTURE | | | NO GROWTH IN 5 DAYS. | | | Testing performed at [facility];[address] [facility];[place] [address] | | | REPORT STATUS 11/20/2011 FINAL | | + + + + +---------+ + + | Performing | Address | City/State/Zipcode | Phone Number | | Organization | | | | + +---------+ + + | EXTERNAL LAB | | | | + +---------+ + + XR Chest 2 Vws (11/14/2011 12:17 PM PDT) + + | Specimen | + + | | + + + + + | Narrative | Performed At | + + + | JESSIE PHILLIPSR XR CHEST 2 VIEW FRONTAL AND LATERAL 11/14/2011 12:10 | | | PM HISTORY: Shortness of breath. TECHNIQUE: Two views of the | | | chest. FINDINGS: No prior comparison available. There are | | | small bilateral pleural effusions, left larger than right. Heart | | | size is probably upper limits of normal. A probable calcified | | | granulomas in the right lung base. There is mild left lower lobe | | | atelectasis or infiltrate adjacent to the pleural effusion. No | | | evidence of pneumothorax. IMPRESSION: 1. Small bilateral | | | pleural effusions, left larger than right. 2. Mild left lower lobe | | | infiltrate or atelectasis. 3. Old granulomatous disease. | | | | | + + + + + | Procedure Note | + + | Robin, Rad Conversion - 01/02/2019 7:47 AM PDT JESSIE MARIO CHEST 2 VIEW FRONTAL | | AND LATERAL11/14/2011 12:10 PM HISTORY:Shortness of breath. TECHNIQUE:Two views of the | | chest. FINDINGS:No prior comparison available. There are small bilateral pleural | | effusions, left larger than right. Heart size is probably upper limits of normal. A | | probable calcified granulomas in the right lung base. There is mild left lower lobe | | atelectasis or infiltrate adjacent to the pleural effusion. No evidence of | | pneumothorax. IMPRESSION:1. Small bilateral pleural effusions, left larger than | | right.2. Mild left lower lobe infiltrate or atelectasis.3. Old granulomatous disease. | | | | | |FINDINGS: | |No prior comparison available. There are small bilateral pleural effusions, left larger th an right. Heart size is probably upper limits of normal. A probable calcified granulomas i n the right lung base. There is mild left lower lobe atelectasis or | |infiltrate adjacent to the pleural effusion. No evidence of pneumothorax. | | | |IMPRESSION: | |1. Small bilateral pleural effusions, left larger than right. | |2. Mild left lower lobe infiltrate or atelectasis. | |3. Old granulomatous disease. | | | | | + + documented in this encounter Visit Diagnoses + + | Diagnosis | + + | Pleural effusion Unspecified pleural effusion | + + | Hypoxia Hypoxemia | + + | Rheumatoid arthritis(714.0) Rheumatoid arthritis | + + | Dyspnea Other dyspnea and respiratory abnormality | + + | SOB (shortness of breath) Shortness of breath | + + | Renal failure Renal failure, unspecified | + + | Acidosis | + + | ARF (acute renal failure) (HCC) Acute kidney failure, unspecified | + + | Anemia Anemia, unspecified | + + | Unspecified pleural effusion | + + documented in this encounter
--- OUTSIDE RECORDS SUMMARY | ~2019-11-29 | XMS | Encounter Summary ---
Demographics + + + | Address | [address] | | | [place] [address] | + + + | Home Phone | | + + + | Preferred Language | Unknown | + + + | Marital Status | | + + + | Holiness Affiliation | Unknown | + + + | Race | Unknown | + + + | Ethnic Group | Unknown | + + + Author + + + | Author | [facility] | | | and [place] | + + + | Organization | [facility] [...] Team Providers + +------+ + | Care Lpta Name | Role | Phone | + +------+ + | Kyle Richey DO | PCP | | + +------+ + Reason for Visit + + + | Reason | Comments | + + + | Follow-up | 3 month follow up | + + + | Carotid Artery | | | Disease | | + + + Encounter Details +--------+---------+ + + + | Date | Type | Department | Care Team | Description | +--------+---------+ + + + | 07/11/ | Office | [facility] | Marissa Rouse, | Coronary artery | | 2017 | Visit | CARDIOLOGY [address] [place] | disease involving | | | | [place], | [place], | [place] coronary | | | | [place] [address] | [place] [address] | artery of [place] | | | | [phone] | [phone] | heart without angina | | | | | | pectoris (Primary | | | | | | Dx); Need for | | | | | | pneumococcal | | | | | | vaccine; Needs flu | | | | | | shot | +--------+---------+ + + + Social History [...] + + + | Blood Pressure | 140/80 | 07/11/2016 1:48 PM | left arm | | | | PST | | + + + + + | Pulse | 80 | 07/11/2016 1:48 PM | regular | | | | PST | | + + + + + | Temperature | - | - | | + + + + + | Respiratory Rate | 16 | 07/11/2016 1:48 PM | | | | | PST | | + + + + + | Oxygen Saturation | - | - | | + + + + + | Inhaled Oxygen | - | - | | | Concentration | | | | + + + + + | Weight | 96.6 kg (213 lb) | 07/11/2016 1:48 PM | | | | | PST | | + + + + + | Height | 157.5 cm (5' 2") | 07/11/2016 1:48 PM | | | | | PST | | + + + + + | Body Mass Index | 38.96 | 07/11/2016 1:48 PM | | | | | PST | | + + + + + documented in this encounter Progress Notes Marissa Rouse MD - 07/11/2016 1:57 PM PSTFormatting of this note might be different f rom the original. PATIENT NAME: Jessie Casarez : 1965: AGE: 51 y.o. PRIMARY CARE: Kyle Richey DO OUTPATIENT FOLLOW UP VISIT Date of Service: 07/11/2016 HISTORY OF PRESENT ILLNESS: Jessie Casarez is a 51 y.o. female with a history of coronary artery disease involving sarah danielle coronary artery of [place] heart without angina pectoris post non-STEMI post PTCA and carolyn nt of RCA by Dr. Bell on 11/23/15, type II diabetes, essential hypertension, mixed hyperlipi demia, obesity, stage III chronic kidney disease, noncompliant, suspecting obstructive sleep apnea. She is being seen today for follow up coronary artery disease. She was last seen 05/07/2016 at which time patient was to increase Isosorbide Mononitrate t o 30 mg and Atorvastatin to 80 mg. Since that time, patient reports having felt muscle spas ms and shocking sensations in her chest, and numbness in her finger tips. She has shortness of breath. Patient is physically active by walking for 15 minutes with her . There is no palpitation dizziness or lightheadedness. There is no ankle or leg swelling. Patient can sleep on one pillow at night without difficulty breathing. MEDICAL, SURGICAL, AND PERSONAL HISTORY Past Medical, Surgical, Family, and Social History are reviewed in EPIC. CURRENT PROBLEMS Patient Active Problem List Diagnosis Extrapulmonary TB (tuberculosis) RA (rheumatoid arthritis) Pleural effusion Coronary artery disease involving [place] coronary artery of [place] heart without angina pectoris CKD (chronic kidney [...] anemia Leukocytosis, unspecified type Acute coronary syndrome Type 2 diabetes mellitus without complication, without long-term current use of insulin CURRENT MEDICATIONS Current Outpatient Prescriptions Medication Sig [...] 1 tablet by mouth nightly. 30 tablet 11 BD PEN NEEDLE MARELY U/F 32G X 4 MM MISC inject once daily 0 HYDROcodone-acetaminophen (NORCO) 5-325 mg per tablet Take 1 tablet by mouth every 4 ho urs as needed for Pain. 20 tablet 0 isosorbide mononitrate (IMDUR) 30 mg ER tablet Take 1 tablet by mouth Daily. 30 tablet 11 metoprolol tartrate (LOPRESSOR) 50 mg tablet Take 1 tablet by mouth 2 times daily. 60 t ablet 0 nitroglycerin (NITROSTAT) 0.4 mg SL tablet Take one tablet under tongue as needed for c hest pain, may repeat every 5 minutes up to 3 doses. If no relief after 3rd dose, call 911 25 tablet 11 ONETOUCH VERIO strip 0 prasugrel (EFFIENT) 10 mg TABS Take 1 tablet by mouth Daily. 90 tablet 3 tiotropium (SPIRIVA) 18 mcg inhalation capsule Inhale 1 capsule into the lungs Daily. 9 0 capsule 3 No current facility-administered medications for this visit. ALLERGIES Allergies Allergen Reactions Albuterol Other (See Comments) Gives her a headache ROS Review of Systems Constitutional: Positive for malaise/fatigue. Respiratory: Positive for shortness of breath. Cardiovascular: Positive for chest pain and leg swelling (Bilateral). Negative for palpitat ions. Neurological: Negative for dizziness and weakness. Lightheaded = No OBJECTIVE: PHYSICAL EXAM BP 140/80 mmHg | Pulse 80 | Resp 16 | Ht 1.575 m (5' 2") | Wt 96.616 kg (213 lb) | BMI 38.9 5 kg/m2 Physical Exam Constitutional: She appears well-developed and well-nourished. No distress. Obese female individual arrives alone without acute distress. Neck: Normal carotid pulses, no hepatojugular reflux [...] not e xhibit a depressed mood. LAB RESULTS reviewed during visit today primarily from [facility]: LIPID Lab Results Component Value Date CHOL 257* 11/20/2015 TRIG 304* 11/20/2015 HDL 50 11/20/2015 LDL 146* 11/20/2015 CHOLHDL 5.1 11/20/2015 CHEMISTRY Lab Results Component Value Date GLU 144* 03/25/2016 GLUEX 129* 01/16/2016 NA 138 03/25/2016 NAEX 137 01/16/2016 K 4.7 03/25/2016 KEX 4.2 01/16/2016 CL 111* 03/25/2016 CLEX 108 01/16/2016 CO2 20* 03/25/2016 CO2EX 16* 01/16/2016 CALCIUM 8.4 03/25/2016 ALKPHOS 69 11/20/2015 AST 46* 11/20/2015 ASTEX 22 09/08/2014 ALT 40 11/20/2015 ALTEX 20 09/08/2014 BILITOT 0.6 11/20/2015 CREA 1.85* 03/25/2016 BUN 29* 03/25/2016 EGFREX 31* 01/16/2016 CREEX 1.71* 01/16/2016 HEMATOLOGY Lab Results Component Value Date WBC 14.6* 11/24/2015 WBCEX 13.3* 09/08/2014 HGB 7.7* 11/24/2015 HGBEX 10.3* 09/08/2014 HCT 26.7* 11/24/2015 HCTEX 34* 09/08/2014 PLT 258 11/24/2015 PLTEX 291 09/08/2014 Above data and testing is reviewed this visit; testing below is historical data unless othe rwise specified. ASSESSMENT: 1. Coronary artery disease involving [place] coronary artery of [place] heart without angina pectoris/non-STEMI: A. Post non-STEMI. Left heart cath on 11/21/12 showed 95% stenosis of the LCx, 20-30% stenosis of the proximal RCA. 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 B. Echocardiogram on 11/20/15 showed Mild biatrial dilatation. Maria l left ventricular size, wall thickness and motion. Preserved left ventricular systolic func tion. LVEF is 60%. Normal valvular structure. Normal right-sided pressure. Normal IVC with n ormal respiratory collapse. C. She started having a chest pain on 11/17/15 while she was working at the [employer]. She described it as a chest pressure 7/10 that radiated across the chest wa ll and was associated some shortness of breath. No palpitation, dizziness or lightheadedne ss. No sweating. She waited until 11/19/15 when she had recurrent bad chest pain that too k her to the ED of [facility] in [place]. She was found to have blood sugar of almost 1000 and troponin of 0.5. She was transferred to [facility]. D. Left heart cath on 11/21/15 showed [...] Medical management. H. Today, patient is doing good from standpoint. She has a nonspec ific nonexertional chest spasm. He has been walking, eating and sleeping better. She is in a class II of [place] [employer] functional class.There is no signs or symptoms of overt congestive heart failure. There is no fluid retention on physical exami nation. She is on a combination of aspirin, metoprolol , Effient, isosorbide and atorvastati n. 2. Essential hypertension with goal blood pressure less than 130/80: A. Today's blood pressure is well-controlled. 3. Type II diabetes/noncompliant with medication A. She is known to have history of type II diabetes. She was pr escribed on metformin 500 mg twice a day starting in July,. Patient has not been see n by endocrinology yet, but she has been monitoring blood sugars and has met with tianna wilkins. 4. Rheumatoid arthritis A. She has a history of rheumatoid arthritis and received Humira on ce weekly by Dr. Castillo in [place]. 5. Acute kidney injury on top of the stage III chronic kidney disease A. She also seen a stem teacher at [facility] but recently los t follow-up. B. Ultrasound retroperitoneal 07/01/2016 shows abnormally echogenic kidneys, compatible with medical renal disease. Kidneys are slightly decreased in size since 2012, no evidence of obstruction. 6. Obesity and Inactivity 7. Hyperlipidemia, mixed: A. She is on Lipitor 80 mg. 8. Suspecting obstructive sleep apnea A. Patient has 4/8 on stop bag questionnaire. 9. Immunizations A. Patient is not up to date on flu, pneumonia and shingles vaccine. Patient has history of coronary artery disease. She should have pneumonia vaccine. PLAN: 1. I will continue with current medical regimen. 2. I recommend a therapeutic lifestyle change including walking 30 minutes a day, choosing healthy choices of diet , including DASH diet and weight reduction. 3. Refill Metoprolol 4. Refill Effient 5. I recommend flu, pneumonia vaccine. She will receive the PCV13 and flu vaccine in offic e. She will need to take PPSV 23 a year later. 6.. Follow-up 4 months or sooner with concerns. I Veronique Gan am acting as a scribe on behalf of, and in the presence of Marissa hagen MD. I have reviewed and edited this note. JANNET Santana 07/11/2016 I, Marissa Rouse MD, personally performed the services described in this documentation, as scribed in my presence and it is both accurate and complete. JANNET Santana 2016 13:57 Electronically signed by: Marissa Rouse MD [facility] 07/11/2016 Portions of this chart may have been created with [email or web address] voice recognition software. Occasi onal wrong-word or [...] + + | Coronary artery disease involving [place] coronary artery of [place] heart without | | angina pectoris - Primary | + + | Need for pneumococcal vaccine Need for prophylactic vaccination against streptococcus | | pneumoniae (pneumococcus) | + + | Needs flu shot Need for prophylactic vaccination and inoculation against influenza | + + documented in this encounter
--- OUTSIDE RECORDS SUMMARY | ~2019-11-29 | XMS | Encounter Summary ---
Demographics + + + | Address | [address] | | | [place] [address] | + + + | Home Phone | | + + + | Preferred Language | Unknown | + + + | Marital Status | | + + + | Hinduism Affiliation | Unknown | + + + | Race | Unknown | + + + | Ethnic Group | Unknown | + + + Author + + + | Author | [facility] | | | and [place] | + + + | Organization | [facility] | | | [...] Team Providers + +------+ + | Care Health Administration Teacher Name | Role | Phone | [...] + + | Closed | Specialty | Sleep | Diagnoses | | [facility] | | | Services | Medicine | DES | [place], | [facility] [address] | | | Required | | (obstructive | Megha B, | [place] | | | | | sleep | MD [address] | Nehal [place], | | | | | apnea) | [address] | [place] [address] | | | | | Procedures | NEHAL [place], | Phone: | | | | | [place] | [place] [address] | [phone] | | | | | 6/>YRS SLEEP | | Fax: | | | | | 4/> ADDL | | [phone] | | | | | [facility] ATTND | | | | | | | NPSG 01/01 | | | | | | | - PEND PT | | | | | | | SCHEDULING | | | | | | | PER [facility] / | | | | | | | SLEEP LAB | | | +--------+ + + + + + Reason for Visit + + + | Reason | Comments | + + + | Pulmonary Disease | 2 month follow up | | Appointment | | + + + Encounter Details +--------+---------+ + + + | Date | Type | Department | Care Team | Description | +--------+---------+ + + + | 09/21/ | Office | [facility] | [place], | Chronic cough | | 2016 | Visit | PULMONARY [address] | Megha Mendoza MD | (Primary Dx); | | | | [place], | | Panlobular emphysema | | | | [place] [address] | | (HCC); DES | | | | [phone] | | (obstructive sleep | | | | | | apnea); | | | | | | Gastroesophageal | | | | | | reflux disease | | | | | | without esophagitis; | | | | | | Pharyngoesophageal | | | | | | dysphagia | +--------+---------+ + + + Social History [...] | Tobacco Cessation: Counseling Given: No | + + + + +---------+ + [...] + + + | Blood Pressure | 130/84 | 09/22/2015 3:20 PM | | | | | PDT | | + + + + + | Pulse | 92 | 09/22/2015 3:20 PM | | | | | PDT | | + + + + + | Temperature | - | - | | + + + + + | Respiratory Rate | - | - | | + + + + + | Oxygen Saturation | 99% | 09/22/2015 3:20 PM | | | | | PDT | | + + + + + | Inhaled Oxygen | - | - | | | Concentration | | | | + + + + + | Weight | 97.3 kg (214 lb 6.4 | 09/22/2015 3:20 PM | | | | oz) | PDT | | + + + + + | Height | 157.5 cm (5' 2") | 09/22/2015 3:20 PM | | | | | PDT | | + + + + + | Body Mass Index | 39.21 | 09/22/2015 3:20 PM | | | | | PDT | | + + + + + documented in this encounter Patient Instructions Patient Instructions Megha Díaz MD - 09/22/2015 4:18 PM PDTStay on the Spiriva for right now. Have the upper GI and esophagram to see if we can find out why you have swallowing problems and if you are refluxing causing you to cough. If this does not show a problem, we will try stopping the lisinopril to see if that makes t he cough go away. I do think you should walk more. I want you to start walking for 10 minutes daily. I am going to refer you for a sleep study. documented in this encounter Progress Notes Megha Díaz MD - 09/22/2015 3:28 PM PDTFormatting of this note might be differe nt from the original. Pulmonary Follow Up HPI Jessie Casarez is a 50 y.o. female patient of Kyle Richey, DO here today for follow up of COPD. At their last visit, we had started her on Incruse once daily. The co pay on the Incruse wa s very expensive, and because she has government insurance she cannot use the pharmacy benef it plan. She then went on Qvar 80 mcg 1 puff inhaled twice daily, and used this for about 2 weeks. It did help her breathing, but she had a terrible headache on this. She was off of al l inhalers for about 4-5 days and felt like her breathing got really bad. She then resumed t he Spiriva she had started on originally. She started this about 4 weeks ago. She felt like this helped her breathing initially for the first couple of weeks. She notes the last 2 week s have been difficult, and the shortness of breath and cough started again. She has not been sick recently, or since last seen. She notes she always had the cough in the background, but this has progressed to feeling li ke she is choking. She has her Ventolin inhaler, and keeps one at work. She uses this very i nfrequently, but did use it the other day. The main time she gets short of breath is when gregg anaya is walking across the parking lot at work, and she cannot carry her inhaler with her at wo rk. She also has been increasingly fatigued, and has been taking a nap every day, which she truong s not usually do. She started on lisinopril a couple of months ago when she went to see Dr. Richey. She does not think her cough changed when she started on this. She describes her cough as coming from her central chest and she coughs up mucous that is dark green in color. She denies any nasal congestion or drainage. She denies any symptoms of heartburn or reflu x. Currently she is able to walk a couple hundred yards at her own pace on level ground. She n otes that stairs in particular are difficult for her. She is not exercising regularly. She mostly stands during the daytime. 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 She has been evaluated for nocturnal oxygen and does not use it. She does snore at night, a lot apparently. Her has noted her gasping in her sleep. He has not noticed her havi ng apneas in her sleep. She generally sleeps 6-7 hours a night. She goes to bed at 8:30-9pm and gets up at 3am. She wakes up 4-5 times a night. She does not have difficulty falling asl eep at night (by the time her head hits the pillow according to her spouse). 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, + for TB, treated with DOT through [facility] RA (rheumatoid arthritis) ([facility]) 2002 Pleural effusion 10/2011, 11/2011 secondary to RA?, negative for TB 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 AR (myocardial infarction) ([facility]) 11/2012 CAD (coronary artery disease) CKD (chronic kidney disease) Rheumatoid arthritis ([facility]) Tubal Arthritis Obesity Acid reflux disease Past Surgical History Past Surgical History Procedure Laterality Date Coronary angioplasty with stent placement 11/2012 [facility] Cholecystectomy Salpingectomy Left 1990s for ectopic Thoracentesis 11/09/2011, 12/09/2011, 01/2012 Tonsillectomy childhood Cardiac surgery pt reports two stents Tonsillectomy Colonoscopy 09/04/2015 Social History: History Social History Marital Status: Spouse Name: N/A Number of Children: N/A Years of Education: N/A 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 [DISCONTINUED] adalimumab (HUMIRA PEN) 40 mg/0.8 mL injection (pen) Inject 0.8ml under the skin every 7 days. ANUCORT-HC 25 MG suppository Insert 1 suppository every 4-6 hours as needed 0 HYDROcodone-acetaminophen (NORCO) 5-325 mg per tablet Take 1-2 tablets by mouth every 6 hours as needed for Pain. 16 tablet 0 lidocaine (LIDODERM) 5% patch Cut and fit to painful areas. Apply 12 hours on and 12 ho urs off. lisinopril (PRINIVIL, ZESTRIL) 10 mg tablet Take one tablet daily 0 metFORMIN (GLUCOPHAGE) 500 mg tablet Take one tablet twice daily 0 [DISCONTINUED] omeprazole (PRILOSEC) 20 mg capsule Take 1 capsule by mouth every mornin g (before breakfast). 30 capsule 11 tiotropium (SPIRIVA) 18 mcg inhalation capsule Inhale 18 mcg into the lungs Daily. umeclidinium (INCRUSE ELLIPTA) 62.5 mcg/puff inhaler Inhale 1 puff into the lungs Daily . 1 Inhaler 11 No facility-administered encounter medications on file as of 09/22/2015. Review of Systems: General: []Weight loss/gain (over 10 lbs) []Fever/chills/sweats []Night sweats EENT: []Hearing loss []Vision loss/change []Sinus congestion/nasal drainage []Nosebleeds [ ]Hoarseness Cardiac: []Chest pain []Palpitations/heart racing [x]Swelling of legs/ankles [x]Waking up at night short of breath []Difficulty sleeping flat Gastrointestinal: []Nausea/vomiting [x]Difficulty swallowing - "I've been choking" []Heartburn/acid reflux [ ]Loss of appetite []Abdominal pain Urologic: []Blood in urine []Frequent urination at night []Burning/painful urination []Difficulty wi th urination Objective BP 130/84 mmHg | Pulse 92 | Ht 1.575 m (5' 2") | Wt 97.251 kg (214 lb 6.4 oz) | BMI 39.20 k g/m2 | SpO2 99% | LMP 08/28/2015 (Approximate) | ? No Neck circumference: 18.25" General Appearance: Alert, cooperative, no distress, appears stated age Head: Normocephalic, without obvious abnormality, atraumatic Eyes: PERRL, conjunctiva clear, no scleral icterus, EOM's intact Ears: Normal TM's, external auditory canals, normal acuity Nose: Nares normal, septum midline, mucosa normal Mouth: No oral lesions or exudate Neck: Supple, symmetrical, no adenopathy Lungs: No accessory muscle use, breath sounds are somewhat diminished bilaterally, no whe ezes, crackles or rhonchi Chest Wall: No deformity Heart: Regular rate and rhythm, no murmur, rub or gallop Abdomen: Soft, non-tender, non-distended, obese Extremities: No cyanosis, clubbing, trace bilateral lower extremity edema Pulses: Radial pulses 2+ and symmetric Skin: Warm and dry Lymph nodes: Cervical and supraclavicular nodes normal Data: Immunization History Administered Date(s) Administered INFLUENZA, TRIVALENT PRESERVATIVE FREE (PED/ADOL/ADULT) 02/09/2014, 03/10/2015 Assessment ICD-10-CM ICD-9-CM 1. Chronic cough R05 786.2 This has fluctuated, and for a period of time improved, though h as no worsened again. I do wonder if addition of lisinopril for her hypertension could be a confounding factor here, and we may have to stop this. FL UGI FL Esophagram Complete 2. Panlobular emphysema (HCC) J43.1 492.8 This is mild, and should not be a huge contributo r to her dyspnea, a large part of which may be due to her obesity, and should not cause coug h so refractory to treatment. 3. DES (obstructive sleep apnea) G47.33 327.23 Snores loudly per her , and wakes up at night often. Her oximetry does show a sawtooth pattern of desaturations as well, though s he did not require oxygen. Diagnostic NPSG 4. Gastroesophageal reflux disease without esophagitis K21.9 530.81 Known reflux, but I do wonder if this is the main cause of her cough given lack of response to inhalers, of which w e have tried several. FL UGI FL Esophagram Complete 5. Pharyngoesophageal dysphagia R13.14 787.24 Notes difficulty swallowing liquids, which ma y be esophageal spasm, so we will do an UGI, but also an esophagram to look for esophageal a bnormality. FL Esophagram Complete Plan 1.Check UGI barium swallow. 2.Check esophagram. 3.Refer for sleep study. 4. Continue on Spiriva as she is tolerating this. 5. Consider holding lisinopril as this could now be aggravating her cough. 6. I encouraged her to start walking more. She was advised to call if new pulmonary symptoms were to develop. Return to clinic after testing. CC: Kyle Richey, Portions of this report were transcribed using voice recognition software. Every effort wa s made to ensure accuracy; however, inadvertent computerized correctional program specialist errors may be pre sent. documented in t his encounter Plan of Treatment +--------+---------+--------+ + + | Name | Type | Priori | Associated Diagnoses | Order Schedule | | | | ty | | | +--------+---------+--------+ + + | FL UGI | Imaging | Routin | Chronic cough | Expected: | | | | e | Gastroesophageal | 09/22/2015, Expires: | | | | | reflux disease | 09/21/2016 | | | | | without esophagitis | | +--------+---------+--------+ + + + + +--------+ + + | Name | Type | Priori | Associated Diagnoses | Order Schedule | | | | ty | | | + + +--------+ + + | Diagnostic NPSG | Outpatient | Routin | DES (obstructive | Ordered: 09/22/2015 | | | Referral | e | sleep apnea) | | + + +--------+ + + documented as of this encounter Results FL Esophagram Complete (10/31/2015 9:25 AM PDT) + + | Specimen | + + | | + + + + + | Narrative | Performed At | + + + | FL ESOPHAGRAM COMPLETE 10/31/2015 9:00 AM HISTORY: Intermittent | [facility] | | mid esophageal dysphagia with liquids. COMPARISON: None. | [facility] | | PROTOCOL: The patient was initially administered effervescent crystals | [facility] | | followed by oral barium. Fluoroscopic images of the esophagus and | - IMAGING | | stomach region were obtained. FINDINGS: The esophagus | | | demonstrates a normal mucosal pattern and contour. There is brisk | | | emptying into the stomach. Visualized stomach is unremarkable. There | | | is no evidence for reflux. IMPRESSION - Normal esophagogram. | | | Dictated and Signed by: Davian Hernandez MD Electronically signed: | | | 10/31/2015 9:54 AM | | + + + + + | Procedure Note | + + | Robin, Rad Results In - 10/31/2015 9:57 AM PDT FL ESOPHAGRAM COMPLETE 10/31/2015 9:00 | | AMHISTORY: Intermittent mid esophageal dysphagia with liquids.COMPARISON: None.PROTOCOL: | | The patient was initially administered effervescent crystals followedby oral barium. | | Fluoroscopic images of the esophagus and stomach region wereobtained.FINDINGS:The | | esophagus demonstrates a normal mucosal pattern and contour. There is briskemptying into | | the stomach. Visualized stomach is unremarkable. There is noevidence for | | reflux.IMPRESSION -Normal esophagogram.Dictated and Signed by: Davian Hernandez MD | | Electronically signed: 10/31/2015 9:54 AM | |obtained. | | | |FINDINGS: | |The esophagus demonstrates a normal mucosal pattern and contour. There is brisk | |emptying into the stomach. Visualized stomach is unremarkable. There is no | |evidence for reflux. | | | |IMPRESSION - | |Normal esophagogram. | | | |Dictated and Signed by: Davian Hernandez MD | | Electronically signed: 10/31/2015 9:54 AM | + + + + + + + | Performing | Address | City/State/Zipcode | Phone Number | | Organization | | | | + + + + + | [facility] | [address] | [place] | [phone] | | [facility] | | [address] | | | - IMAGING | | | | + + + + + documented in this encounter Visit Diagnoses + + | Diagnosis | + + | Chronic cough - Primary Cough | + + | Panlobular emphysema (HCC) Other emphysema | + + | DES (obstructive sleep apnea) Obstructive sleep apnea (adult) (pediatric) | + + | Gastroesophageal reflux disease without esophagitis Esophageal reflux | + + | Pharyngoesophageal dysphagia Dysphagia, pharyngoesophageal phase | + + documented in this encounter
--- OUTSIDE RECORDS SUMMARY | ~2019-11-29 | XMS | Encounter Summary ---
Demographics + + + | Address | [address] | | | [place] [address] | + + + | Home Phone | | + + + | Preferred Language | Unknown | + + + | Marital Status | | + + + | Anabaptism Affiliation | Unknown | + + + [...] Team Providers + +------+ + | Care Lens Assorter Name | Role | Phone | + +------+ + | Kyle Richey DO | PCP | | + +------+ + Encounter Details +--------+ + + + + | Date | Type | Department | Care Team | Description | +--------+ + + + + | 07/23/ | Hospital | [facility] | Osmany, Robin | Menorrhagia with | | 2019 - | Encounter | [facility] [address] | Lorenzo RIVERA MD [address] | irregular cycle; | | | | [address] | [address] | Fibroid | | 07/27/ | | [place], [place] | [place] [address] | | | 2019 | | [id number] | [phone] | | | | | [phone] | | | +--------+ + + + [...] + + + | Blood Pressure | 108/57 | 07/27/2018 11:07 AM | | | | | PDT | | + + + + + | Pulse | 67 | 07/27/2018 11:07 AM | | | | | PDT | | + + + + + | Temperature | 36.7 C (98.1 F) | 07/27/2018 11:07 AM | | | | | PDT | | + + + + + | Respiratory Rate | 16 | 07/27/2018 11:07 AM | | | | | PDT | | + + + + + | Oxygen Saturation | - | - | | + + + + + | Inhaled Oxygen | - | - | | | Concentration | | | | + + + + + | Weight | 94.8 kg (209 lb) | 07/27/2018 11:07 AM | | | | | PDT | | + + + + + | Height | 157.5 cm (5' 2") | 07/27/2018 11:07 AM | | | | | PDT | | + + + + + | Body Mass Index | 38.23 | 07/27/2018 11:07 AM | | | | | PDT | | + + + + + documented in this encounter Discharge Summaries Robin Ceron III, MD - 07/27/2018 1:10 PM PDT Discharge Summaries by Robin Ceron III, MD at 07/27/18 1310 Author: Robin Ceron III, MD Service: Obstetrics/Gynecology Author Type: Denisse jasmine Filed: 07/27/18 3226 Date of Service: 07/27/18 1310 Status: Signed Locomotive Crane Engineer: Robin Ceron III, MD (Physician) Merged With [facility] Service: Obstetrics & Gynecology Discharge Summary Date of Admission: 07/23/2018 Date of Discharge: 07/27/2018 Discharge Provider: Robin Ceron MD Treatment Team: Consulting Physician: Regina Funes MD Consulting Physician: Dominguez Isaacs DO Admitting Provider: Robin Ceron III, MD Discharge Diagnoses: Principal Problem: Status post total abdominal hysterectomy bilateral salphingooophorectomy Active Problems: Menorrhagia with irregular cycle Fibroid Iron deficiency anemia due to chronic blood loss Resolved Problems: * No resolved hospital problems. * Procedures: (1) TOTAL ABDOMINAL HYSTERECTOMY AND BILATERAL SALPINGO-OOPHORECTOMY (2) Intraoperative consultation. Repair sigmoid colon. Minor lysis of adhesions BRIEF HISTORY OF PRESENTATION: Jessie Casarez is a 53 y.o. female who was admitted for scheduled hysterectomy. Refer to History and Physical and Operative Reports for details. HOSPITAL COURSE: Postoperative course was remarkable for elevated blood pressurres. This was managed by the Hospitalist team, refer to Progress Notes for details. She is doing well postoperativel y otherwise. Ambulating, tolerating PO intake, voiding freely. Past Medical History Diagnosis Date Chronic kidney disease per pt; there are NO issues with kidneys Old myocardial infarction Rheumatoid arthritis(714.0) Status post total abdominal hysterectomy bilateral salphongooophorectomy 07/23/2018 Tuberculosis 2000 tested + so went through treatment Past Surgical History Procedure Laterality Date CARDIAC CATHETERIZATION 2012,2014 stents x2 CHOLECYSTECTOMY COLONOSCOPY Gall stone removal HYSTERECTOMY N/A 07/23/2018 Procedure: ABDOMINAL - HYSTERECTOMY; Surgeon: Robin Ceron III, MD; Location: [facility] MA[facility] OR; Service: BUFFET MANAGER; Laterality: N/A; OOPHORECTOMY Left 07/23/2018 Procedure: ABDOMINAL - OOPHORECTOMY; Surgeon: Robin Ceron III, MD; Location: [facility] MA[facility] OR; Service: BUFFET MANAGER; Laterality: Left; SALPINGOOPHORECTOMY Right 07/23/2018 Procedure: ABDOMINAL - SALPINGO-OOPHORECTOMY; Surgeon: Robin Ceron III, MD; Location: [facility]; Service: BUFFET MANAGER; Laterality: Right; TONSILLECTOMY TUMOR REMOVAL Neck Allergies Allergen Reactions Albuterol Other (See Comments) Gives her a headache Clopidogrel Other (See Comments) Reaction Unknown Metformin Other (See Comments) Patient states it was contraindicated with another medication. Prescriptions Prior to Admission Medication Sig Dispense Refill Last Dose adalimumab (HUMIRA) 40 MG/0.8ML injection Inject 0.8 mLs under the skin every 7 days. Taking at Unknown time aspirin 81 MG chewable tablet Take 81 mg by mouth. 07/21/2018 Dulaglutide 1.5 MG/0.5ML SOPN Inject 1.5 mg into the skin. Taking HYDROcodone-acetaminophen (NORCO) 5-325 MG per tablet take 1 tablet by mouth four times a day if needed for pain 0 07/19/2018 ibuprofen (MOTRIN) 800 MG tablet Take 1 tablet by mouth every 6 (six) hours as needed f or Pain for up to 10 days. 30 tablet 0 07/19/2018 insulin degludec (TRESIBA) 100 UNIT/ML injection Inject 25 Units into the skin. Rani g at Unknown time lidocaine (LIDODERM) 5 % Cut and fit to painful areas. Apply 12 hours on and 12 hours o ff. Taking Mometasone Furoate (ASMANEX HFA) 200 MCG/ACT AERO Inhale 2 puffs into the lungs. Taki ng nitroGLYCERIN (NITROSTAT) 0.4 MG SL tablet Take one tablet under tongue as needed for c hest pain, may repeat every 5 minutes up to 3 doses. If no relief after 3rd dose, call 911 Taking predniSONE (DELTASONE) 5 MG tablet Take 5-10 mg by mouth. 07/16/2018 sulfaSALAzine (AZULFIDINE) 500 MG EC tablet Take 1,000 mg by mouth. 07/17/2018 DISCHARGE EXAM Vital Signs: BP 108/57 (BP Location: Left upper arm) | Pulse 67 | Temp 98.1 F (36.7 C) (Oral) | R emmanuel 16 | Ht 1.575 m (5' 2") | Wt 94.8 kg (209 lb) | LMP 07/07/2018 | SpO2 95% | BMI 38. 23 kg/m Temp: [97.6 F (36.4 C)-99.7 F (37.6 C)] 98.1 F (36.7 C) (07/27 110) BP: (108-139)/(55-82) 108/57 (07/27 110) Heart Rate: [67-87] 67 (07/27 110) Resp: [16-18] 16 (07/27 110) SpO2: [95 %-97 %] 95 % (07/27 110) Physical Exam Constitutional: She appears well-developed and well-nourished. No distress. Cardiovascular: Normal rate, regular rhythm and normal heart sounds. No murmur heard. Pulmonary/Chest: Effort normal and breath sounds normal. No respiratory distress. She has n o wheezes. She has no rales. Abdomina/Gl: Soft. Bowel sounds are normal. She exhibits no distension and no mass. There i s no tenderness. There is no rebound and no guarding. Dressing dry Musculoskeletal: She exhibits no edema, tenderness or deformity. DATA CBC: Lab Results Component Value Date WBC 18.66 (H) 07/27/2018 RBC 5.17 (H) 07/27/2018 HGB 11.1 (L) 07/27/2018 HCT 36.7 07/27/2018 MCV 71.1 (L) 07/27/2018 MCH 21.5 (L) 07/27/2018 MCHC 30.3 (L) 07/27/2018 RDW 73.1 (H) 07/27/2018 PLT 337 07/27/2018 MPV 9.5 07/27/2018 DIFFTYPE AUTOMATED 07/27/2018 CMP: Lab Results Component Value Date NA 136 07/27/2018 K 3.8 07/27/2018 CL 101 07/27/2018 CO2 24 07/27/2018 ANIONGAP 15 07/27/2018 GLUF 132 (H) 07/27/2018 BUN 28 (H) 07/27/2018 CREATININE 2.0 (H) 07/27/2018 BCR 14 07/27/2018 CA 9.0 07/27/2018 PROT 7.1 07/27/2018 ALB 2.5 (L) 07/27/2018 GLOB 4.6 07/27/2018 BILITOT 0.8 07/27/2018 ALP 79 07/27/2018 AST 14 07/27/2018 ALT 10 07/27/2018 EGFR 26 (L) 07/27/2018 ABO/RH(D) Date Value Ref Range Status 07/22/2018 A POSITIVE Final PLAN Hemodynamically stable. Good bowel recovery. No clinical evidence of active postop infection. Disposition: Home Condition: Good Code Status: Full Code No discharge procedures on file. Follow up: [facility] [address], [address] [facility] [address] On 08/20/2018 Alexis Gonzalez DO [address] [place] [address] Schedule an appointment as soon as possible for a visit in 1 week Anthony Sigala MD [address] [facility] [address] Medication List START taking these medications ferrous sulfate (65 FE) 325 (65 FE) MG tablet QTY: 60 tablet Refills: 11 Take 1 tablet by mouth 2 (two) times daily with meals. metoprolol 50 MG tablet QTY: 60 tablet Refills: 11 Commonly known as: LOPRESSOR Take 1 tablet by mouth 2 (two) times daily. oxyCODONE-acetaminophen 5-325 MG per tablet QTY: 28 tablet Refills: 0 Doctor's comments: For postoperative pain Commonly known as: PERCOCET Take 1 tablet by mouth every 6 (six) hours as needed for Pain for up to 10 days. CONTINUE taking these medications adalimumab 40 MG/0.8ML injection Refills: 0 Commonly known as: HUMIRA ASMANEX HFA 200 MCG/ACT Aero Refills: 0 Generic drug: Mometasone Furoate aspirin 81 MG chewable tablet Refills: 0 Dulaglutide 1.5 MG/0.5ML Sopn Refills: 0 HYDROcodone-acetaminophen 5-325 MG per tablet Refills: 0 Commonly known as: NORCO ibuprofen 800 MG tablet QTY: 30 tablet Refills: 0 Commonly known as: MOTRIN Take 1 tablet by mouth every 6 (six) hours as needed for Pain for up to 10 days. insulin degludec 100 UNIT/ML injection Refills: 0 Commonly known as: TRESIBA lidocaine 5 % Refills: 0 Commonly known as: LIDODERM nitroGLYCERIN 0.4 MG SL tablet Refills: 0 Commonly known as: NITROSTAT predniSONE 5 MG tablet Refills: 0 Commonly known as: DELTASONE sulfaSALAzine 500 MG EC tablet Refills: 0 Commonly known as: AZULFIDINE You might also be taking other medications not listed above. If you have questions about an y of your other medications, talk to the person who prescribed them or your Primary Care Pro vider. Where to Get Your Medications These medications were sent to [facility] [facility] [place] [address] [facility] [address] [facility] [address] ferrous sulfate (65 FE) 325 (65 FE) MG tablet metoprolol 50 MG tablet You can get these medications from any pharmacy Bring a paper prescription for each of these medications oxyCODONE-acetaminophen 5-325 MG per tablet Discharge took 30 minutes, to include final examination, discussion of admission, and prepa ration of prescriptions, instructions for on-going care, follow-up and documentation of disc harge summary. Robin Cerno MD 07/27/2018 Shamar ray in this encounter Medications at Time of [...] +---------+ + + | omeprazole | Take 20 mg by mouth | | 0 | | | | (PRILOSEC) 20 mg | every morning | | | | 9 | | capsule | (before breakfast). | | | | | + + + +---------+ + + | sulfaSALAzine | 1,000 mg 2 times | | 0 | 08/05/19 | | | (AZULFIDINE) 500 MG | daily. | | | 18 | 9 | | EC tablet | | | | | | + + + +---------+ + + documented as of this encounter Progress Notes Conversion Transaction, Provider Unknown - 07/27/2018 1:56 PM PDTFormatting of this note m ight be different from the original. Nurse Progress Note by Sparkle Pandya RN at 07/27/181355 Author: Sparkle Pandya RN Service: (none) Author Type: Registered Nurse Filed: 07/27/181355 Date of Service: 07/27/181355 Status: Signed Locomotive Crane Engineer: Sparkle Pandya RN (Registered Nurse) Discharge patient to home Instructions given States understanding Prescription given SPARKLE PANDYA RN 07/27/2018 1:56 PM Dejah Mckeon LMT - 07/27/2018 9:59 AM PDTFormatting of this note might be different from th e original. Therapy Progress Note by NEELAM Leal at 07/27/18958 Author: NEELAM Leal Service: (none) Author Type: Massage Therapist Filed: 07/27/18958 Date of Service: 07/27/18958 Status: Signed Locomotive Crane Engineer: NEELAM Leal (Massage Therapist) 07/27/18958 MT Last Visit MT Received On 07/27/18 MT Therapy Visit Not available onversion Transa ction, Provider Unknown - 07/27/2018 8:38 AM PDT Case Management by Tad Cortez RN at 07/27/18837 Author: Tad Cortez RN Service: (none) Author Type: Registered Nurse Filed: 07/27/18837 Date of Service: 07/27/18837 Status: Signed Locomotive Crane Engineer: Tad Cortez RN (Registered Nurse) Discharge Planning: Pt on course to discharge home once medically ready. CM will follow for any needs that arise. onver stella Transaction, Provider Unknown - 07/27/2018 6:32 AM PDT Nurse Progress Note by Lilian James RN at 07/27/18 0632 Author: Lilian James RN Service: (none) Author Type: Registered Nurse Filed: 07/27/1833 Date of Service: 07/27/18631 Status: Signed Locomotive Crane Engineer: Lilian James RN (Registered Nurse) End of shift audit complete. Lilian James RN onver stella Transaction, Provider Unknown - 07/26/2018 5:54 PM PDT Nurse Progress Note by Leslie Pizano RN at 07/26/181753 Author: Leslie Pizano RN Service: (none) Author Type: Registered Nurse Filed: 07/26/181753 Date of Service: 07/26/181753 Status: Signed Locomotive Crane Engineer: Leslie Pizano RN (Registered Nurse) End of shift review complete. onver stella Transaction, Provider Unknown - 07/26/2018 3:47 PM PDT Case Management by SHUN Cool at 07/26/18 5277 Author: SHUN Cool Service: (none) Author Type: Seed Cleaning Manager Filed: 07/26/18 1549 Date of Service: 07/26/181546 Status: Signed Locomotive Crane Engineer: SHUN Cool (Seed Cleaning Manager) 07/26/18 1500 Discharge Planning Evaluation Admitting Diagnosis (Fibroid) Readmission No Living Arrangements Spouse/significant other Support Systems Spouse/significant other Type of Residence Private residence House type House-1 story Independent with ADL's Yes Independent with Mobility Yes Home Care Services No Mental Status Oriented Prior functional status (Independent) Resources Financial concerns No Transportation issues No Patient/Family concerns No Prescription Plan Yes Anticipated Disposition Facility Type Home MOISTURE TESTER CM met with pt and discussed discharge planning. Pt is a 53 y.o., female admitted for f ibroid. Pt resides at [address] [place] [address] with her , Carlos Casarez. Pt reported that she was independent with ADL's, IADL's and mobility prior to admission. Pt reported no needs for discharge. Patient's PCP is: Dr. Richey in [place] Patient's insurance: [employer] Coverage concerns: No Medication coverage/concerns: No Rx Bedside Delivery: No Community resources utilized / needed: No Assistance in transportation: No Identification of any specific education / training: No Barriers to Discharge / Alternative housing needed: No Anticipated DCP: Return home SHUN Cool, DANA ustod manfred, Robin Ventura III, MD - 07/26/2018 7:45 AM PDTFormatting of this note might be differe nt from the original. Progress Notes by Robin Ceron III, MD at 07/26/1867 Author: Robin Ceron III, MD Service: Obstetrics/Gynecology Author Type: Denisse jasmine Filed: 07/26/1847 Date of Service: 07/26/18744 Status: Signed Locomotive Crane Engineer: Robin Ceron III, MD (Physician) Merged With [facility] Service: Obstetrics & Gynecology Progress Note Hospital Day: LOS: 3 days Post-Op Day: 3 Days Post-Op SUBJECTIVE Ambulating, tolerating PO, voiding freely. No flatus yet. Scheduled Medications aspirin 81 mg Oral Daily with breakfast ferrous sulfate (65 FE) 65 mg of iron Oral BID WC hydrALAZINE 100 mg Oral TID hydrochlorothiazide 12.5 mg Oral Daily insulin glargine 25 Units Subcutaneous Nightly insulin lispro (human) 0-10 Units Subcutaneous TID AC insulin lispro (human) 0-5 Units Subcutaneous Nightly metoprolol 50 mg Oral BID mometasone 2 puff Inhalation Daily Continuous Infusions dextrose lactated ringers 110 mL/hr at 07/23/18 1723 PRN Medications acetaminophen OR acetaminophen, aluminum-magnesium hydroxide-simethicone, bisacodyl, de xtrose, dextrose, dextrose, diphenhydrAMINE OR diphenhydrAMINE, glucagon, glucagon, HYDR Omorphone OR HYDROmorphone, magnesium hydroxide, ondansetron OR ondansetron, oxyCODO NE OR oxyCODONE, simethicone, saline lock IV - when tolerating PO fluids AND sodium chloride (PF), zolpidem OBJECTIVE Vital Signs: BP 143/73 | Pulse 93 | Temp 98.5 F (36.9 C) (Oral) | Resp 16 | Ht 1.575 m (5' 2") | Wt 94.8 kg (209 lb) | LMP 07/07/2018 | SpO2 93% | BMI 38.23 kg/m Temp: [98.5 F (36.9 C)-99.5 F (37.5 C)] 98.5 F (36.9 C) (07/26 409) BP: (141-188)/(69-92) 143/73 (07/27 635) Heart Rate: [75-93] 93 (07/26 409) Resp: [16] 16 (07/26 409) SpO2: [93 %-97 %] 93 % (07/26 409) Physical Exam Constitutional: She appears well-developed and well-nourished. No distress. Cardiovascular: Normal rate, regular rhythm and normal heart sounds. Pulmonary/Chest: Effort normal and breath sounds normal. No respiratory distress. She has n o wheezes. Abdomina/Gl: Soft. Bowel sounds are normal. She exhibits no distension and no mass. There i s no tenderness. There is no rebound and no guarding. Musculoskeletal: She exhibits no edema, tenderness or deformity. DATA CBC: Lab Results Component Value Date WBC 18.09 (H) 07/26/2018 RBC 5.07 07/26/2018 HGB 10.9 (L) 07/26/2018 HCT 35.8 07/26/2018 MCV 70.7 (L) 07/26/2018 MCH 21.5 (L) 07/26/2018 MCHC 30.4 (L) 07/26/2018 RDW 70.9 (H) 07/26/2018 PLT 292 07/26/2018 MPV 9.1 07/26/2018 DIFFTYPE AUTOMATED 07/26/2018 CMP: Lab Results Component Value Date NA 137 07/26/2018 K 3.5 07/26/2018 CL 100 07/26/2018 CO2 26 07/26/2018 ANIONGAP 15 07/26/2018 GLUF 128 (H) 07/26/2018 BUN 24 07/26/2018 CREATININE 1.8 (H) 07/26/2018 BCR 13 07/26/2018 CA 9.0 07/26/2018 PROT 7.9 07/26/2018 ALB 2.7 (L) 07/26/2018 GLOB 5.2 (H) 07/26/2018 BILITOT 0.7 07/26/2018 ALP 80 07/26/2018 AST 24 07/26/2018 ALT 9 (L) 07/26/2018 EGFR 29 (L) 07/26/2018 ABO/RH(D) Date Value Ref Range Status 07/22/2018 A POSITIVE Final PROBLEM LIST Principal Problem: Status post total abdominal hysterectomy bilateral salphingooophorectomy Active Problems: Menorrhagia with irregular cycle Fibroid Iron deficiency anemia due to chronic blood loss ASSESSMENT & PLAN Status post hsyterectomy. Hemodynamically stable. Good bowel recovery. Elevated WBC but afebrile and no clinical focus on infection is evident on exam. Hypertension and diabetes management per Hospitalist service. Not ready for discharge yet. Disposition: Inpatient Code Status: Full Code Robin Ceron MD 07/26/2018 onvers ion Transaction, Provider Unknown - 07/26/2018 5:23 AM PDT Nurse Progress Note by Pooja Hagan RN at 07/26/18522 Author: Pooja Hagan RN Service: (none) Author Type: Registered Nurse Filed: 07/26/18522 Date of Service: 07/26/18522 Status: Signed Locomotive Crane Engineer: Pooja Hagan RN (Registered Nurse) Noc end of shift review and chart check complete. ustorinku shearer, Robin Ventura III, MD - 07/25/2018 9:07 AM PDTFormatting of this note might be differe nt from the original. Progress Notes by Robin Ceron III, MD at 07/25/18906 Author: Robin Ceron III, MD Service: Obstetrics/Gynecology Author Type: Denisse jasmine Filed: 07/25/1841 Date of Service: 07/25/18906 Status: Signed Locomotive Crane Engineer: Robin Ceron III, MD (Physician) Merged With [facility] Service: Obstetrics & Gynecology Progress Note Hospital Day: LOS: 2 days Post-Op Day: 2 Days Post-Op SUBJECTIVE Reports she was in a lot of pain last night; this has improved by today. She is ambulating, tolerating PO intake, and voiding freely. No flatus yet. Scheduled Medications aspirin 81 mg Oral Daily with breakfast hydrochlorothiazide 12.5 mg Oral Daily insulin glargine 20 Units Subcutaneous Nightly insulin lispro (human) 0-10 Units Subcutaneous TID AC insulin lispro (human) 0-5 Units Subcutaneous Nightly mometasone 2 puff Inhalation Daily Continuous Infusions dextrose lactated ringers 110 mL/hr at 07/23/18 1723 PRN Medications acetaminophen OR acetaminophen, aluminum-magnesium hydroxide-simethicone, bisacodyl, de xtrose, dextrose, dextrose, diphenhydrAMINE OR diphenhydrAMINE, glucagon, glucagon, HYDR Omorphone OR HYDROmorphone, magnesium hydroxide, ondansetron OR ondansetron, oxyCODO NE OR oxyCODONE, simethicone, saline lock IV - when tolerating PO fluids AND sodium chloride (PF), zolpidem OBJECTIVE Vital Signs: BP (!) 176/92 (BP Location: Left forearm) | Pulse 78 | Temp 99 F (37.2 C) (Oral) | R emmanuel 16 | Ht 1.575 m (5' 2") | Wt 94.8 kg (209 lb) | LMP 07/07/2018 | SpO2 94% | BMI 38. 23 kg/m Temp: [98.1 F (36.7 C)-99.3 F (37.4 C)] 99 F (37.2 C) (07/25 733) BP: (154-195)/(72-114) 176/92 (07/25 733) Heart Rate: [78-98] 78 (07/25 733) Resp: [16-18] 16 (07/25 733) SpO2: [94 %-97 %] 94 % (07/25 733) Physical Exam Constitutional: She appears well-developed and well-nourished. No distress. Cardiovascular: Normal rate, regular rhythm and normal heart sounds. Pulmonary/Chest: Effort normal and breath sounds normal. No respiratory distress. She has n o wheezes. She has no rales. Abdomina/Gl: Soft. Bowel sounds are normal. She exhibits no distension and no mass. There i s no tenderness. There is no rebound and no guarding. Aquacel dressing dry Musculoskeletal: She exhibits no edema, tenderness or deformity. DATA CBC: Lab Results Component Value Date WBC 16.12 (H) 07/25/2018 RBC 4.69 07/25/2018 HGB 10.0 (L) 07/25/2018 HCT 33.1 (L) 07/25/2018 MCV 70.5 (L) 07/25/2018 MCH 21.2 (L) 07/25/2018 MCHC 30.1 (L) 07/25/2018 RDW 72.2 (H) 07/25/2018 PLT 218 07/25/2018 MPV 9.1 07/25/2018 DIFFTYPE MANUAL 07/25/2018 CMP: Lab Results Component Value Date NA 137 07/25/2018 K 3.5 07/25/2018 CL 102 07/25/2018 CO2 25 07/25/2018 ANIONGAP 14 07/25/2018 GLUF 163 (H) 07/25/2018 BUN 27 (H) 07/25/2018 CREATININE 2.0 (H) 07/25/2018 BCR 14 07/25/2018 CA 9.1 07/25/2018 PROT 7.4 07/25/2018 ALB 2.6 (L) 07/25/2018 GLOB 4.8 07/25/2018 BILITOT 0.5 07/25/2018 ALP 72 07/25/2018 AST 10 07/25/2018 ALT 10 07/25/2018 EGFR 26 (L) 07/25/2018 ABO/RH(D) Date Value Ref Range Status 07/22/2018 A POSITIVE Final PROBLEM LIST Principal Problem: Status post total abdominal hysterectomy bilateral salphingooophorectomy Active Problems: Menorrhagia with irregular cycle Fibroid Iron deficiency anemia due to chronic blood loss ASSESSMENT & PLAN Hemodynamically stable. Good bowel recovery. No evidence of active infection; WBC trending down and afebrile. I asked Dr Funes of the Hospitalist service to help manage her hypertension and diabetes. Disposition: Inpatient Code Status: Full Code Robin Ceron MD 07/25/2018 onvers ion Transaction, Provider Unknown - 07/25/2018 6:43 AM PDT Progress Notes by Sherri Belle RN at 07/25/18 0643 Author: Sherri Belle RN Service: (none) Author Type: Registered Nurse Filed: 07/25/18 0644 Date of Service: 07/25/18 0643 Status: Signed Locomotive Crane Engineer: Sherri Belle RN (Registered Nurse) Noc chart check complete. onver stella Transaction, Provider Unknown - 07/24/2018 6:42 PM PDT Nurse Progress Note by Iqra Forrester RN at 07/24/181841 Author: Iqra Forrester RN Service: (none) Author Type: Registered Nurse Filed: 07/24/181842 Date of Service: 07/24/181841 Status: Signed Locomotive Crane Engineer: Iqra Forrester RN (Registered Nurse) Chart check complete Iqra Forrester RN ustod Robin shearer III, MD - 07/24/2018 12:49 PM PDTFormatting of this note might be differe nt from the original. Progress Notes by Robin Ceron III, MD at 07/24/18 1249 Author: Robin Ceron III, MD Service: Obstetrics/Gynecology Author Type: Denisse jasmine Filed: 07/24/18 4666 Date of Service: 07/24/18 7250 Status: Signed Locomotive Crane Engineer: Robin Ceron III, MD (Physician) Merged With [facility] Service: Obstetrics & Gynecology Progress Note Hospital Day: LOS: 1 day Post-Op Day: 1 Day Post-Op SUBJECTIVE Patient fells well. Ambulating, tolerating PO, voiding freely. Pain is well-controlled. Scheduled Medications aspirin 81 mg Oral Daily with breakfast hydrochlorothiazide 12.5 mg Oral Daily insulin glargine 20 Units Subcutaneous Nightly insulin lispro (human) 0-10 Units Subcutaneous TID AC insulin lispro (human) 0-5 Units Subcutaneous Nightly mometasone 2 puff Inhalation Daily Continuous Infusions dextrose lactated ringers 110 mL/hr at 07/23/18 1723 PRN Medications acetaminophen OR acetaminophen, aluminum-magnesium hydroxide-simethicone, bisacodyl, de xtrose, dextrose, dextrose, diphenhydrAMINE OR diphenhydrAMINE, glucagon, glucagon, HYDR Omorphone OR HYDROmorphone, magnesium hydroxide, ondansetron OR ondansetron, oxyCODO NE OR oxyCODONE, simethicone, saline lock IV - when tolerating PO fluids AND sodium chloride (PF), zolpidem OBJECTIVE Vital Signs: BP 154/72 (BP Location: Left forearm) | Pulse 90 | Temp 98.1 F (36.7 C) (Oral) | Res p 18 | Ht 1.575 m (5' 2") | Wt 94.8 kg (209 lb) | LMP 07/07/2018 | SpO2 97% | BMI 38.23 kg/m Temp: [97.9 F (36.6 C)-98.5 F (36.9 C)] 98.1 F (36.7 C) (07/24 114) BP: (115-184)/(55-108) 154/72 (07/24 1158) Heart Rate: [80-104] 90 (07/24 114) Resp: [14-37] 18 (07/24 114) SpO2: [86 %-100 %] 97 % (07/24 114) Height: [157.5 cm (5' 2")] 157.5 cm (5' 2") (07/23 1744) Weight: [94.8 kg (209 lb)] 94.8 kg (209 lb) (07/23 1744) BMI (Calculated): [38.3] 38.3 (07/23 1744) FiO2 : [31 %-96 %] 96 % (07/23 1501) Physical Exam Constitutional: She appears well-developed and well-nourished. No distress. Cardiovascular: Normal rate. Pulmonary/Chest: Effort normal. No respiratory distress. Abdomina/Gl: Soft. She exhibits no distension and no mass. There is no tenderness. There is no rebound and no guarding. Dressing dry (Aquacel) Musculoskeletal: She exhibits no edema, tenderness or deformity. DATA CBC: Lab Results Component Value Date WBC 19.70 (H) 07/24/2018 RBC 4.58 07/24/2018 HGB 9.6 (L) 07/24/2018 HCT 32.1 (L) 07/24/2018 MCV 70.1 (L) 07/24/2018 MCH 21.0 (L) 07/24/2018 MCHC 29.9 (L) 07/24/2018 RDW 70.4 (H) 07/24/2018 PLT 184 07/24/2018 MPV 9.7 07/24/2018 DIFFTYPE MANUAL 07/24/2018 CMP: Lab Results Component Value Date NA 137 07/24/2018 K 4.4 07/24/2018 CL 107 07/24/2018 CO2 22 (L) 07/24/2018 ANIONGAP 12 07/24/2018 GLUF 207 (H) 07/24/2018 BUN 26 (H) 07/24/2018 CREATININE 2.0 (H) 07/24/2018 BCR 13 07/24/2018 CA 8.6 07/24/2018 PROT 7.2 07/24/2018 ALB 2.5 (L) 07/24/2018 GLOB 4.7 07/24/2018 BILITOT 0.3 07/24/2018 ALP 75 07/24/2018 AST 18 07/24/2018 ALT 17 07/24/2018 EGFR 26 (L) 07/24/2018 SPECIMEN(S): A UTERUS, CERVIX, RIGHT TUBE AND BILAT OVARIES SPECIMEN SOURCE: A. UTERUS, CERVIX, RIGHT TUBE AND BILAT OVARIES CLINICAL HISTORY: Bleeding. FINAL PATHOLOGIC DIAGNOSIS: Uterus (250 grams) , bilateral ovaries and right fallopian tube: - Cervix - Negative for TIARRA and glandular atypia - Endometrium - Benign weakly proliferative endometrium without hyperplasia, santiago yp or atypia - Myometrium - - Leiomyomas without atypia measuring up to 4.2 cm in diameter - Extensive adenomyosis - Serosa - No pathologic abnormality - Right fallopian tube- No pathologic abnormality - Ovaries - No pathologic abnormality PROBLEM LIST Principal Problem: Status post total abdominal hysterectomy bilateral salphingooophorectomy Active Problems: Menorrhagia with irregular cycle Fibroid Iron deficiency anemia due to chronic blood loss ASSESSMENT & PLAN Hemodynamicaly stable. Good bowel recovery. Elevated WBC, but afebrile and no evidence of postop infection. Reviewed intraoperative findings. Informed patient of adhesions and of deserosalized bowel, which was repaired by Dr Mateusz Odell. Reviewed surgical pathology findings: benign. Anticipate discharge home tomorrow. Disposition: Inpatient Code Status: Full Code Robin Ceron MD 07/24/2018 onvers ion Transaction, Provider Unknown - 07/24/2018 6:06 AM PDT Nurse Progress Note by Asia Guardado RN at 07/24/18605 Author: Asia Guardado RN Service: (none) Author Type: Registered Nurse Filed: 07/24/18606 Date of Service: 07/24/18605 Status: Signed Locomotive Crane Engineer: Asia Guardado RN (Registered Nurse) End of shift note; no changes, tolerated meds during night, call light in reach, continue t o monitor. Ambulated in [place] with 1p SBA. 24 hour chart check complete. onver stella Transaction, Provider Unknown - 07/23/2018 9:22 PM PDT Progress Notes by Abraham Duenas RN at 07/23/182121 Author: Abraham Duenas RN Service: (none) Author Type: Registered Nurse Filed: 03/14/19 2122 Date of Service: 07/23/182121 Status: Signed Locomotive Crane Engineer: Abraham Duenas RN (Registered Nurse) Report given to Dayna PIERCE. Abraham Duenas RN onver stella Transaction, Provider Unknown - 07/23/2018 6:29 PM PDT Nurse Progress Note by Leslie Pizano RN at 07/23/181828 Author: Leslie Pizano RN Service: (none) Author Type: Registered Nurse Filed: 07/23/181828 Date of Service: 07/23/181828 Status: Signed Locomotive Crane Engineer: Leslie Pizano RN (Registered Nurse) End of shift review complete. onver stella Transaction, Provider Unknown - 07/23/2018 4:16 PM PDT OR Nursing by Ihsan Tapia RN at 07/23/181615 Author: Ihsan Tapia RN Service: (none) Author Type: Registered Nurse Filed: 07/23/181617 Date of Service: 07/23/181615 Status: Signed Locomotive Crane Engineer: Ihsan Tapia RN (Registered Nurse) Pt had post-operative x-ray due to BMI that was read and cleared by Dr. Ceron before [facility] operating room! docume nted in this encounter H&P Notes Robin Ceron III, MD - 07/23/2018 11:08 AM PDT Interval H&P Note by Robin Ceron III, MD at 07/23/181107 Author: Robin Ceron III, MD Service: Obstetrics/Gynecology Author Type: Denisse jasmine Filed: 07/23/18 110 Date of Service: 07/23/181107 Status: Signed Locomotive Crane Engineer: Robin Ceron III, MD (Physician) [facility] Service: Obstetrics & Gynecology Pre-Operative History & Physical Interval Update There have been no significant clinical changes since the completion of the above H&P. Tod ays physical assessment showed HP update PE: Normal appearance, alert and oriented X3 and r espiratory effort normal Significant clinical changes have occurred as noted: Hemoglobin 11.4 after transusion with 4 units packed RBC Robin Ceron MD 07/23/2018 *CORE MEASURES REMINDER: If the patient has a known or suspected infection prior to surger y, please add diagnosis to the problem list (consider: Infection 136.9). Source Note Author: Robin Ceron III, MD Service: (none) Author Type: Physician Filed: 07/22/18 1110 Date of Service: 07/22/18 1100 Status: Signed Locomotive Crane Engineer: Robin Ceron III, MD (Physician) Service: Obstetrics & Gynecology Pre-Operative History & Physical DIAGNOSIS: Menorrhagia PROCEDURE: Total abdominal hysterectomy, bilateral salphingooophorectomy CHIEF COMPLAINT: Bleeding History Obtained From: patient HISTORY OF PRESENT ILLNESS The patient is 53 y.o. female with significant past medical history of pelvic adhesions who presents for hysterectomy. REVIEW OF SYSTEMS Review of Systems Genitourinary: Positive for menstrual problem and vaginal bleeding. Past Medical History Diagnosis Date Rheumatoid arthritis(714.0) Past Surgical History Procedure Laterality Date CHOLECYSTECTOMY Gall stone removal TONSILLECTOMY TUMOR REMOVAL Neck Allergies Allergen Reactions Albuterol Other (See Comments) Gives her a headache Clopidogrel Other (See Comments) Reaction Unknown Metformin Other (See Comments) Patient states it was contraindicated with another medication. No current outpatient prescriptions on file prior to visit. No current facility-administered medications on file prior to visit. Family History Problem Relation Age of Onset Diabetes type II Mother High cholesterol Father Diabetes type II Father Thyroid disease Sister Kidney disease Neg Hx Social History Social History Marital status: Spouse name: N/A Number of children: N/A Years of education: N/A Occupational History Not on file. Social History Main Topics Smoking status: Former Smoker Types: Cigarettes Smokeless tobacco: Never Used Comment: Quit about 2 months ago. Alcohol use No Drug use: No Sexual activity: Yes Partners: Male Other Topics Concern Not on file Social History Narrative Lives with her boyfriend No kids Works at [employer] Smoke quit 2 months 1/2 ppd for 15 years etoh very occasionally Drugs none Father might have kidney problems Mother lives in [place] has dm-2 PHYSICAL EXAM Vital Signs: BP 160/62 | Pulse 114 | Wt 210 lb (95.3 kg) | SpO2 99% | ? No | BMI 38.41 kg/m Physical Exam Constitutional: She appears well-developed and well-nourished. No distress. Cardiovascular: Normal rate. Pulmonary/Chest: Effort normal. No respiratory distress. Abdomina/Gl: Soft. She exhibits no distension and no mass. There is no tenderness. There is no rebound and no guarding. Pfannenstiel scar (ectopic ) Musculoskeletal: She exhibits no edema, tenderness or deformity. DATA CBC: Lab Results Component Value Date WBC 12.6 (H) 11/22/2012 RBC 4.09 11/22/2012 HGB 8.6 (L) 11/22/2012 HCT 27.4 (L) 11/22/2012 MCV 67.0 (L) 11/22/2012 MCH 21.0 (L) 11/22/2012 MCHC 31.4 (L) 11/22/2012 RDW 43.8 11/22/2012 PLT 181 11/22/2012 MPV 9.1 11/22/2012 DIFFTYPE AUTOMATED 11/22/2012 CMP: Lab Results Component Value Date NA 129 (L) 11/22/2012 K 3.6 11/22/2012 CL 102 11/22/2012 CO2 21 (L) 11/22/2012 ANIONGAP 10 11/22/2012 GLUF 108 (H) 11/22/2012 BUN 15 11/22/2012 CREATININE 1.58 (H) 11/22/2012 BCR 9 11/22/2012 CA 8.0 (L) 11/22/2012 PROT 6.6 11/22/2012 ALB 3.5 (L) 11/22/2012 GLOB 3.1 11/22/2012 BILITOT 0.5 11/22/2012 ALP 47 11/22/2012 AST 49 (H) 11/22/2012 ALT 16 11/22/2012 EGFR 37 (L) 11/22/2012 No results found for: ABORH PROBLEM LIST Patient Active Problem List Diagnosis Unspecified pleural effusion SOB (shortness of breath) Hypoxia Anemia Acidosis ARF (acute renal failure) PNA (pneumonia) TB (pulmonary tuberculosis) Rheumatoid arthritis(714.0) Metabolic acidosis CKD (chronic kidney disease) Proteinuria Smoking NSTEMI (non-ST elevated myocardial infarction) Obesity, unspecified Menorrhagia with irregular cycle Fibroid ASSESSMENT & PLAN 1. Patient is a 53 y.o. female with above specified procedure planned. 2. Procedure options, risks, benefits and alternatives reviewed with patient and spouse w jimena zamarripa(es) understanding. Any and all questions were answered to their satisfaction. Primary Care Physician: ANTHONY Ceron MD 07/22/2018 *CORE MEASURES REMINDER: If the patient has a known or suspected infection prior to surger y, please add diagnosis to the problem list (consider: Infection 136.9). ustoRobin villasenor III, MD - 07/22/2018 11:00 AM PDTFormatting of this note might be differen t from the original. H&P (View-Only) by Robin Ceron III, MD at 07/22/18 1100 Author: Robin Ceron III, MD Service: (none) Author Type: Physician Filed: 07/22/18 1110 Date of Service: 07/22/18 1100 Status: Signed Locomotive Crane Engineer: Robin Ceron III, MD (Physician) Service: Obstetrics & Gynecology Pre-Operative History & Physical DIAGNOSIS: Menorrhagia PROCEDURE: Total abdominal hysterectomy, bilateral salphingooophorectomy CHIEF COMPLAINT: Bleeding History Obtained From: patient HISTORY OF PRESENT ILLNESS The patient is 53 y.o. female with significant past medical history of pelvic adhesions who presents for hysterectomy. REVIEW OF SYSTEMS Review of Systems Genitourinary: Positive for menstrual problem and vaginal bleeding. Past Medical History Diagnosis Date Rheumatoid arthritis(714.0) Past Surgical History Procedure Laterality Date CHOLECYSTECTOMY Gall stone removal TONSILLECTOMY TUMOR REMOVAL Neck Allergies Allergen Reactions Albuterol Other (See Comments) Gives her a headache Clopidogrel Other (See Comments) Reaction Unknown Metformin Other (See Comments) Patient states it was contraindicated with another medication. No current outpatient prescriptions on file prior to visit. No current facility-administered medications on file prior to visit. Family History Problem Relation Age of Onset Diabetes type II Mother High cholesterol Father Diabetes type II Father Thyroid disease Sister Kidney disease Neg Hx Social History Social History Marital status: Spouse name: N/A Number of children: N/A Years of education: N/A Occupational History Not on file. Social History Main Topics Smoking status: Former Smoker Types: Cigarettes Smokeless tobacco: Never Used Comment: Quit about 2 months ago. 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 No | BMI 38.41 kg/m Physical Exam Constitutional: She appears well-developed and well-nourished. No distress. Cardiovascular: Normal rate. Pulmonary/Chest: Effort normal. No respiratory distress. Abdomina/Gl: Soft. She exhibits no distension and no mass. There is no tenderness. There is no rebound and no guarding. Pfannenstiel scar (ectopic ) Musculoskeletal: She exhibits no edema, tenderness or deformity. DATA CBC: Lab Results Component Value Date WBC 12.6 (H) 11/22/2012 RBC 4.09 11/22/2012 HGB 8.6 (L) 11/22/2012 HCT 27.4 (L) 11/22/2012 MCV 67.0 (L) 11/22/2012 MCH 21.0 (L) 11/22/2012 MCHC 31.4 (L) 11/22/2012 RDW 43.8 11/22/2012 PLT 181 11/22/2012 MPV 9.1 11/22/2012 DIFFTYPE AUTOMATED 11/22/2012 CMP: Lab Results Component Value Date NA 129 (L) 11/22/2012 K 3.6 11/22/2012 CL 102 11/22/2012 CO2 21 (L) 11/22/2012 ANIONGAP 10 11/22/2012 GLUF 108 (H) 11/22/2012 BUN 15 11/22/2012 CREATININE 1.58 (H) 11/22/2012 BCR 9 11/22/2012 CA 8.0 (L) 11/22/2012 PROT 6.6 11/22/2012 ALB 3.5 (L) 11/22/2012 GLOB 3.1 11/22/2012 BILITOT 0.5 11/22/2012 ALP 47 11/22/2012 AST 49 (H) 11/22/2012 ALT 16 11/22/2012 EGFR 37 (L) 11/22/2012 No results found for: ABORH PROBLEM LIST Patient Active Problem List Diagnosis Unspecified pleural effusion SOB (shortness of breath) Hypoxia Anemia Acidosis ARF (acute renal failure) PNA (pneumonia) TB (pulmonary tuberculosis) Rheumatoid arthritis(714.0) Metabolic acidosis CKD (chronic kidney disease) Proteinuria Smoking NSTEMI (non-ST elevated myocardial infarction) Obesity, unspecified Menorrhagia with irregular cycle Fibroid ASSESSMENT & PLAN 1. Patient is a 53 y.o. female with above specified procedure planned. 2. Procedure options, risks, benefits and alternatives reviewed with patient and spouse w ho express(es) understanding. Any and all questions were answered to their satisfaction. Primary Care Physician: ANTHONY Ceron MD 07/22/2018 *CORE MEASURES REMINDER: If the patient has a known or suspected infection prior to surger y, please add diagnosis to the problem list (consider: Infection 136.9). documen cory in this encounter Consult Notes Ignacio Roberson MD - 07/27/2018 6:17 AM PDT Consult* by Ignacio Roberson MD-R1 at 07/27/18 0617 Author: Ignacio Roberson MD-R1 Service: Hospitalist Author Type: Residen t-Y1 Filed: 07/27/18 0750 Date of Service: 07/27/18616 Status: Attested Locomotive Crane Engineer: Ignacio Roberson MD-R1 (Resident-Y1) Cosigner: Dominguez Isaacs DO at 07/27/18 1256 Attestation signed by Dominguez Isaacs DO at 07/27/18 1256 Patient seen/examined with resident. I agree with note including physical exam and assessme nt/plan. Dominguez Isaacs DO 07/27/2018 12:56 PM Consult Note Pt: Jessie Casarez AGE/SEX: 53 y.o. female ROOM: [address] [place] [address] PCP: ANTHONY SIGALA DOB: 1965 Length of stay: 4 days POD 4 PATIENT SUMMARY 53-year-old female S/P KOFFI with BSO, sigmoid colon repair, and lysis of adhesions being fol lowed by hospitalist service for treatment of hypertension and diabetes. SUBJECTIVE Patient still has not passed flatus or had a BM. Pain is at 4/10 while at rest. OBJECTIVE Lab Results Component Value Date/Time WBC 18.66 (H) 07/27/2018 04:25 AM RBC 5.17 (H) 07/27/2018 04:25 AM HGB 11.1 (L) 07/27/2018 04:25 AM HCT 36.7 07/27/2018 04:25 AM PLT 337 07/27/2018 04:25 AM BANDSABS 0.79 (H) 07/24/2018 05:24 AM Lab Results Component Value Date/Time NA 136 07/27/2018 04:25 AM K 3.8 07/27/2018 04:25 AM CL 101 07/27/2018 04:25 AM CO2 24 07/27/2018 04:25 AM ANIONGAP 15 07/27/2018 04:25 AM GLUF 132 (H) 07/27/2018 04:25 AM BUN 28 (H) 07/27/2018 04:25 AM CREATININE 2.0 (H) 07/27/2018 04:25 AM BCR 14 07/27/2018 04:25 AM CA 9.0 07/27/2018 04:25 AM PHOS 2.9 11/22/2012 03:55 AM MG 1.6 (L) 11/22/2012 03:55 AM Physical Exam Constitutional: She is oriented to person, place, and time. No distress. Patient sitting in chair speaking to son HENT: Head: Normocephalic and atraumatic. Right Ear: Hearing and external ear normal. Left Ear: Hearing and external ear normal. Cardiovascular: Normal rate, regular rhythm, normal heart sounds and intact distal pulses. No murmur heard. Pulmonary/Chest: Effort normal and breath sounds normal. No respiratory distress. She has n o wheezes. Abdomina/Gl: Soft. Bowel sounds are normal. She exhibits no distension. There is tenderness (appropriate tenderness at incision site). There is no guarding. Vertical midline incision covered by bandage. Musculoskeletal: Normal range of motion. Neurological: She is alert and oriented to person, place, and time. Skin: Skin is warm and dry. Psychiatric: She has a normal mood and affect. Her behavior is normal. Judgment and thought content normal. Recent Results (from the past 24 hour(s)) POCT glucose Collection Time: 07/26/18 11:21 AM Result Value Ref Range GLUCOSE,POC SCREEN 196 (H) 65 - 99 mg/dL POCT glucose Collection Time: 07/26/18 4:29 PM Result Value Ref Range GLUCOSE,POC SCREEN 159 (H) 65 - 99 mg/dL POCT glucose Collection Time: 07/26/18 9:31 PM Result Value Ref Range GLUCOSE,POC SCREEN 205 (H) 65 - 99 mg/dL CBC w/auto diff (reflex to manual) Collection Time: 07/27/18 4:25 AM Result Value Ref Range WBC 18.66 (H) 3.80 - 11.00 K/uL RBC 5.17 (H) 3.70 - 5.10 M/uL HGB 11.1 (L) 11.3 - 15.5 g/dL HCT 36.7 34.0 - 46.0 % MCV 71.1 (L) 80.0 - 100.0 fl MCH 21.5 (L) 27.0 - 34.0 pg MCHC 30.3 (L) 32.0 - 35.5 g/dL RDW SD 73.1 (H) 37 - 53 fl PLT 337 150 - 400 K/uL MPV 9.5 fl DIFF TYPE AUTOMATED NEUTROPHILS 80.37 % LYMPHOCYTES 8.58 % MONOCYTES 8.03 % EOSINOPHILS 1.95 % BASOPHILS 1.07 % NEUTROPHILS ABS 14.99 (H) 1.90 - 7.40 K/uL LYMPHOCYTES ABS 1.60 1.00 - 3.90 K/uL MONOCYTES ABS 1.50 (H) 0.00 - 0.80 K/uL EOSINOPHILS ABS 0.36 0.00 - 0.50 K/uL BASOPHILS ABS 0.20 (H) 0.00 - 0.10 K/uL MORPHOLOGY 4+ Comprehensive metabolic panel Collection Time: 07/27/18 4:25 AM Result Value Ref Range SODIUM 136 135 - 145 mmol/L POTASSIUM 3.8 3.5 - 4.9 mmol/L CHLORIDE 101 99 - 109 mmol/L CO2 24 23 - 32 mmol/L ANION GAP AGAP 15 5 - 20 mmol/L GLUCOSE 132 (H) 65 - 99 mg/dL BUN 28 (H) 8 - 25 mg/dL CREATININE 2.0 (H) 0.50 - 1.00 mg/dL BUN/CREAT 14 CALCIUM 9.0 8.5 - 10.5 mg/dL TOTAL PROTEIN 7.1 6.3 - 8.2 g/dL Albumin 2.5 (L) 3.6 - 5.0 g/dL GLOBULIN 4.6 1.3 - 4.9 g/dL A/G 0.5 (L) 1.0 - 2.4 TBIL 0.8 0.1 - 1.5 mg/dL ALK PHOS 79 35 - 115 U/L AST 14 10 - 45 U/L ALT 10 10 - 65 U/L EGFR 26 (L) >60 mL/min/1.73m2 POCT glucose Collection Time: 07/27/18 5:24 AM Result Value Ref Range GLUCOSE,POC SCREEN 144 (H) 65 - 99 mg/dL IMAGING Xr Post-op R/o Fb Result Date: 07/23/2018 Normal postoperative appearance of the abdomen without evidence of retained surgical foreig n body. Signed by: Jac Teresa Sign Date/Time: 07/23/2018 3:19 PM MEDICATIONS aspirin 81 mg Oral Daily with breakfast ferrous sulfate (65 FE) 65 mg of iron Oral BID WC hydrALAZINE 25 mg Oral TID hydrochlorothiazide 12.5 mg Oral Daily insulin glargine 25 Units Subcutaneous Nightly insulin lispro (human) 0-10 Units Subcutaneous TID AC insulin lispro (human) 0-5 Units Subcutaneous Nightly lisinopril 20 mg Oral Daily metoprolol 50 mg Oral BID mometasone 2 puff Inhalation Daily dextrose lactated ringers 110 mL/hr at 07/23/18 1723 PRN: acetaminophen OR acetaminophen, aluminum-magnesium hydroxide-simethicone, bisacodyl, de xtrose, dextrose, dextrose, diphenhydrAMINE OR diphenhydrAMINE, glucagon, glucagon, HYDR Omorphone OR HYDROmorphone, magnesium hydroxide, ondansetron OR ondansetron, oxyCODO NE OR oxyCODONE, simethicone, saline lock IV - when tolerating PO fluids AND sodium chloride (PF), zolpidem Problem list: Principal Problem: Status post total abdominal hysterectomy bilateral salphingooophorectomy Active Problems: Menorrhagia with irregular cycle Fibroid Iron deficiency anemia due to chronic blood loss ASSESSMENT & PLAN Principal Problem # HTN Pt is diabetic, will administer ACEi. Attempting to wean off of hydralazine. - Continue hydralazine 25 mg 3 times daily, will consider stopping - Continue hydrochlorothiazide 12.5 mg daily - Continue metoprolol 50 mg twice daily - Continue lisinopril 20 mg qd # DMII Blood glucose levels are trending down to more acceptable range > A1c 7.4 - Continue Lantus 25 units nightly - SSI # Rheumatoid arthritis - Continue weekly Humira injections if patient is still in the hospital # CKD stage IV Kidney function remains at baseline. - Daily BMP - Avoid nephrotoxins - Maintain adequate hydration (LR 110 mL/h) # Microcytic Anemia Likely affected by chronic kidney disease, blood loss from recent surgery also a factor. - Daily CBC - Continue ferrous sulfate 65 mg twice daily with meals # S/P KOFFI with SBO, Sigmoid colon repair, and minor lysis of adhesions > POD 4 - Pain management per primary team Code status: Full Disposition: Inpatient Ignacio Roberson MD-R1 07/27/2018 6:18 AM Dictation software, [employer], used which may contain error for similar sounding words even af ter review. Personal communication requested for any clarification. Portions of this chart may have been copied from previous notes for continuity of care purp ose obi ns, Ignacio Sanderson MD - 07/26/2018 7:32 AM PDTFormatting of this note might be di fferent from the original. Consult* by TRAVIS IbarraR1 at 07/26/18 0732 Author: Ignacio Roberson MD-R1 Service: Hospitalist Author Type: Residen t-Y1 Filed: 07/26/18 0926 Date of Service: 07/26/18 0732 Status: Attested Locomotive Crane Engineer: Ignacio Roberson MD-R1 (Resident-Y1) Cosigner: Dominguez Isaacs DO at 03/17/19 1016 Attestation signed by Dominguez Isaacs DO at 07/26/18 1016 Patient seen/examined with resident. I agree with note including physical exam and assessme nt/plan. I would add that patient, per EHR, has longstanding hx of HTN. She states she is not on indra e meds. This is uncontrolled HTN and needs to be treated long-term in outpatient setting. Sh e will need rx for BP meds and close f/u with PCP for ongoing control of BP going forward. T his is all the more important given her hx of NSTEMI with CAD. TRACY/ARB would be appropriate in this patient who has DM2. I recommend decreasing hydralazin e and introducing lisinopril. Dominguez Isaacs DO 07/26/2018 10:16 AM Consult Note Pt: Jessie Casarez AGE/SEX: 53 y.o. female ROOM: [facility]/406-1 PCP: ANTHONY SIGALA : 1965 Length of stay: 3 days POD 3 PATIENT SUMMARY 53-year-old female S/P KOFFI with BSO being followed by hospitalist service for treatment of hypertension and diabetes. SUBJECTIVE Patient still has not passed flatus or had a BM. OBJECTIVE Lab Results Component Value Date/Time WBC 18.09 (H) 07/26/2018 05:26 AM RBC 5.07 07/26/2018 05:26 AM HGB 10.9 (L) 07/26/2018 05:26 AM HCT 35.8 07/26/2018 05:26 AM PLT 292 07/26/2018 05:26 AM BANDSABS 0.79 (H) 07/24/2018 05:24 AM Lab Results Component Value Date/Time NA 137 07/26/2018 05:26 AM K 3.5 07/26/2018 05:26 AM CL 100 07/26/2018 05:26 AM CO2 26 07/26/2018 05:26 AM ANIONGAP 15 07/26/2018 05:26 AM GLUF 128 (H) 07/26/2018 05:26 AM BUN 24 07/26/2018 05:26 AM CREATININE 1.8 (H) 07/26/2018 05:26 AM BCR 13 07/26/2018 05:26 AM CA 9.0 07/26/2018 05:26 AM PHOS 2.9 11/22/2012 03:55 AM MG 1.6 (L) 11/22/2012 03:55 AM Physical Exam Constitutional: She is oriented to person, place, and time. No distress. HENT: Head: Normocephalic and atraumatic. Right Ear: Hearing and external ear normal. Left Ear: Hearing and external ear normal. Cardiovascular: Normal rate, regular rhythm, normal heart sounds and intact distal pulses. Exam reveals no friction rub. No murmur heard. Pulmonary/Chest: Effort normal and breath sounds normal. No respiratory distress. She has n o wheezes. Abdomina/Gl: Soft. Bowel sounds are normal. She exhibits no distension. There is tenderness (appropriate tenderness at incision site). There is no guarding. Musculoskeletal: Normal range of motion. Neurological: She is alert and oriented to person, place, and time. Skin: Skin is warm and dry. Psychiatric: She has a normal mood and affect. Her behavior is normal. Judgment and thought content normal. Recent Results (from the past 24 hour(s)) POCT glucose Collection Time: 07/25/18 11:30 AM Result Value Ref Range GLUCOSE,POC SCREEN 233 (H) 65 - 99 mg/dL POCT glucose Collection Time: 07/25/18 4:15 PM Result Value Ref Range GLUCOSE,POC SCREEN 186 (H) 65 - 99 mg/dL POCT glucose Collection Time: 07/25/18 9:35 PM Result Value Ref Range GLUCOSE,POC SCREEN 206 (H) 65 - 99 mg/dL CBC w/auto diff (reflex to manual) Collection Time: 07/26/18 5:26 AM Result Value Ref Range WBC 18.09 (H) 3.80 - 11.00 K/uL RBC 5.07 3.70 - 5.10 M/uL HGB 10.9 (L) 11.3 - 15.5 g/dL HCT 35.8 34.0 - 46.0 % MCV 70.7 (L) 80.0 - 100.0 fl MCH 21.5 (L) 27.0 - 34.0 pg MCHC 30.4 (L) 32.0 - 35.5 g/dL RDW SD 70.9 (H) 37 - 53 fl PLT 292 150 - 400 K/uL MPV 9.1 fl DIFF TYPE AUTOMATED NEUTROPHILS 76.73 % LYMPHOCYTES 11.38 % MONOCYTES 8.98 % EOSINOPHILS 1.94 % BASOPHILS 0.97 % NEUTROPHILS ABS 13.89 (H) 1.90 - 7.40 K/uL LYMPHOCYTES ABS 2.06 1.00 - 3.90 K/uL MONOCYTES ABS 1.62 (H) 0.00 - 0.80 K/uL EOSINOPHILS ABS 0.35 0.00 - 0.50 K/uL BASOPHILS ABS 0.18 (H) 0.00 - 0.10 K/uL MORPHOLOGY 4+ Comprehensive metabolic panel Collection Time: 07/26/18 5:26 AM Result Value Ref Range SODIUM 137 135 - 145 mmol/L POTASSIUM 3.5 3.5 - 4.9 mmol/L CHLORIDE 100 99 - 109 mmol/L CO2 26 23 - 32 mmol/L ANION GAP AGAP 15 5 - 20 mmol/L GLUCOSE 128 (H) 65 - 99 mg/dL BUN 24 8 - 25 mg/dL CREATININE 1.8 (H) 0.50 - 1.00 mg/dL BUN/CREAT 13 CALCIUM 9.0 8.5 - 10.5 mg/dL TOTAL PROTEIN 7.9 6.3 - 8.2 g/dL Albumin 2.7 (L) 3.6 - 5.0 g/dL GLOBULIN 5.2 (H) 1.3 - 4.9 g/dL A/G 0.5 (L) 1.0 - 2.4 TBIL 0.7 0.1 - 1.5 mg/dL ALK PHOS 80 35 - 115 U/L AST 24 10 - 45 U/L ALT 9 (L) 10 - 65 U/L EGFR 29 (L) >60 mL/min/1.73m2 POCT glucose Collection Time: 07/26/18 5:31 AM Result Value Ref Range GLUCOSE,POC SCREEN 149 (H) 65 - 99 mg/dL IMAGING Xr Post-op R/o Fb Result Date: 07/23/2018 Normal postoperative appearance of the abdomen without evidence of retained surgical foreig n body. Signed by: Jac Teresa Sign Date/Time: 07/23/2018 3:19 PM MEDICATIONS aspirin 81 mg Oral Daily with breakfast ferrous sulfate (65 FE) 65 mg of iron Oral BID WC hydrALAZINE 100 mg Oral TID hydrochlorothiazide 12.5 mg Oral Daily insulin glargine 25 Units Subcutaneous Nightly insulin lispro (human) 0-10 Units Subcutaneous TID AC insulin lispro (human) 0-5 Units Subcutaneous Nightly metoprolol 50 mg Oral BID mometasone 2 puff Inhalation Daily dextrose lactated ringers 110 mL/hr at 07/23/18 1723 PRN: acetaminophen OR acetaminophen, aluminum-magnesium hydroxide-simethicone, bisacodyl, de xtrose, dextrose, dextrose, diphenhydrAMINE OR diphenhydrAMINE, glucagon, glucagon, HYDR Omorphone OR HYDROmorphone, magnesium hydroxide, ondansetron OR ondansetron, oxyCODO NE OR oxyCODONE, simethicone, saline lock IV - when tolerating PO fluids AND sodium chloride (PF), zolpidem Problem list: Principal Problem: Status post total abdominal hysterectomy bilateral salphingooophorectomy Active Problems: Menorrhagia with irregular cycle Fibroid Iron deficiency anemia due to chronic blood loss ASSESSMENT & PLAN Principal Problem # HTN Blood pressures remained elevated on hydralazine 50 mg 3 times daily plus hydrochlorothiaz manfred, seem to be responding to hydralazine 100 mg 3 times daily, plus hydrochlorothiazide and metoprolol. - Continue hydralazine 100 mg 3 times daily - Continue hydrochlorothiazide 12.5 mg daily - Continue metoprolol 50 mg twice daily # DMII Blood glucose levels are trending down to more acceptable range > A1c pending - Continue Lantus 25 units nightly - SSI # Rheumatoid arthritis - Continue weekly Humira injections if patient is still in the hospital # CKD stage IV - Daily BMP - Avoid nephrotoxins - Maintain adequate hydration (LR 110 mL/h) # Microcytic Anemia Likely affected by chronic kidney disease, blood loss from recent surgery also a factor. - Daily CBC - Continue ferrous sulfate 65 mg twice daily with meals # S/P KOFFI with SBO > POD 3 - Pain management per primary team Code status: Full Disposition: Inpatient Ignacio Roberson MD-R1 07/26/2018 7:32 AM Dictation software, [employer], used which may contain error for similar sounding words even af ter review. Personal communication requested for any clarification. Portions of this chart may have been copied from previous notes for continuity of care purp ose Regina Jackson MD - 07/25/2018 9:37 AM PDTFormatting of this note might be different from the radha ginal. Consult* by Regina Funes MD at 07/25/18936 Author: Regina Funes MD Service: (none) Author Type: Physician Filed: 07/25/181948 Date of Service: 07/25/18936 Status: Addendum Locomotive Crane Engineer: Regina Funes MD (Physician) Related Notes: Original Note by Regina Funes MD (Physician) filed at 07/25/18 9936 Merged With [facility] Service: Hospitalist Consultation Note Pt: Jessie Casarez AGE/SEX: 53 y.o. female : 1965 ROOM: [address] [place] [address] REQUESTING PROVIDER: Robin Ceron * TODAY'S DATE: 07/25/2018 Date of Consultation: 07/25/2018 Reason For Consultation: for medical issue Labile increasing BP and she also has underlying diabetes as well as CKD Consult Report: The patient is a 53 y.o. female who is being asked to be evaluated by our service on accoun t of Labile increasing BP, and she also has underlying diabetes she is status post total abdominal hysterectomy bilateral salphingooophorectomy for Fibroid on 23 july by post op Iron deficiency anemia Received blood transfusion as well PMH + DM type II HTN CKD Stage IV and RA as well after surgery BP trend climbing up avergaing 170s 180s systolic last 24 hours HR in 70s 80s sinus Stable O2 sat She is on diurectic for BP BS ranage About 177, 163 fasting lantus 25 unit At night with SSI PMHx: Past Medical History Diagnosis Date Chronic kidney disease per pt; there are NO issues with kidneys Old myocardial infarction Rheumatoid arthritis(714.0) Status post total abdominal hysterectomy bilateral salphongooophorectomy 07/23/2018 Tuberculosis 2000 tested + so went through treatment PSHx: Past Surgical History Procedure Laterality Date CARDIAC CATHETERIZATION 2012,2014 stents x2 CHOLECYSTECTOMY COLONOSCOPY Gall stone removal HYSTERECTOMY N/A 07/23/2018 Procedure: ABDOMINAL - HYSTERECTOMY; Surgeon: Robin Ceron III, MD; Location: [facility] MAIN OR; Service: BUFFET MANAGER; Laterality: N/A; OOPHORECTOMY Left 07/23/2018 Procedure: ABDOMINAL - OOPHORECTOMY; Surgeon: Robin Ceron III, MD; Location: [facility] MAIN OR; Service: BUFFET MANAGER; Laterality: Left; SALPINGOOPHORECTOMY Right 07/23/2018 Procedure: ABDOMINAL - SALPINGO-OOPHORECTOMY; Surgeon: Robin Ceron III, MD; Location: [facility] MA[facility] OR; Service: BUFFET MANAGER; Laterality: Right; TONSILLECTOMY TUMOR REMOVAL Neck Prior To admission Meds: Prescriptions Prior to Admission Medication Sig Dispense Refill Last Dose adalimumab (HUMIRA) 40 MG/0.8ML injection Inject 0.8 mLs under the skin every 7 days. Taking at Unknown time aspirin 81 MG chewable tablet Take 81 mg by mouth. 07/21/2018 Dulaglutide 1.5 MG/0.5ML SOPN Inject 1.5 mg into the skin. Taking HYDROcodone-acetaminophen (NORCO) 5-325 MG per tablet take 1 tablet by mouth four times a day if needed for pain 0 07/19/2018 ibuprofen (MOTRIN) 800 MG tablet Take 1 tablet by mouth every 6 (six) hours as needed f or Pain for up to 10 days. 30 tablet 0 07/19/2018 insulin degludec (TRESIBA) 100 UNIT/ML injection Inject 25 Units into the skin. Rani short at Unknown time lidocaine (LIDODERM) 5 % Cut and fit to painful areas. Apply 12 hours on and 12 hours o ff. Taking Mometasone Furoate (ASMANEX HFA) 200 MCG/ACT AERO Inhale 2 puffs into the lungs. Deny ng nitroGLYCERIN (NITROSTAT) 0.4 MG SL tablet Take one tablet under tongue as needed for c hest pain, may repeat every 5 minutes up to 3 doses. If no relief after 3rd dose, call 911 Taking predniSONE (DELTASONE) 5 MG tablet Take 5-10 mg by mouth. 07/16/2018 sulfaSALAzine (AZULFIDINE) 500 MG EC tablet Take 1,000 mg by mouth. 07/17/2018 Medications: Scheduled Meds: aspirin 81 mg Oral Daily with breakfast hydrochlorothiazide 12.5 mg Oral Daily insulin glargine 20 Units Subcutaneous Nightly insulin lispro (human) 0-10 Units Subcutaneous TID AC insulin lispro (human) 0-5 Units Subcutaneous Nightly mometasone 2 puff Inhalation Daily Continuous Infusions: dextrose lactated ringers 110 mL/hr at 07/23/18 1723 Allergies: Allergies Allergen Reactions Albuterol Other (See Comments) Gives her a headache Clopidogrel Other (See Comments) Reaction Unknown Metformin Other (See Comments) Patient states it was contraindicated with another medication. Social Hx: Social History Substance Use Topics Smoking status: Former Smoker Types: Cigarettes Smokeless tobacco: Never Used Comment: Quit about 2 months ago. Alcohol use No Family Hx: Family History Problem Relation Age of Onset Diabetes type II Mother High cholesterol Father Diabetes type II Father Thyroid disease Sister Kidney disease Neg Hx Malig hypertherm Neg Hx Review of Symptoms: Constitutional-apetite- no change Activity- no change Weight-no change No fatigue Eye-no itching, no pain , no redness, no change in vision Nose- no drainage, no bleeding Ear- no pain no discharge, hearing-no issue Mouth-no lesion, no pain, no gum bleeding , no tongue lesion or change, Teeth- no issue, no pain Lip- no lesion Neck- no pain, no swelling Lung- no cough, no shortness of breath, no wheezing Heart- no chest pain , no palpitation, no shortness of breath Abdomen-no abdominal pain, no reflux issue, no constipation, no diarrha Genitourinary-no frequency, no dysuria, no discharge, no urgency, No vagina discharge, no vagina bleeding OR no nocturnal increase frequency, or no imcomple te sense of emptying Neurology- no loss of consciousness,no tremors, no numbness, no tremors, no tingling,no wea kness, no seizures, no sleep issue or disorder,no memory issue Psychiatry-no depression, no anxiety,no hallucination Skin- no rash,no discolouration, no erthema, No dryness Extremities-no swelling Objective: Vital signs BP (!) 176/92 (BP Location: Left forearm) | Pulse 78 | Temp 99 F (37.2 C) (Oral) | R emmanuel 16 | Ht 1.575 m (5' 2") | Wt 94.8 kg (209 lb) | LMP 07/07/2018 | SpO2 94% | BMI 38. 23 kg/m Intake/Output last 3 shifts: I/O last 3 completed shifts: In: 2099 [P.O.:2100] Out: 1999 [Urine:2000] Vent settings for last 24 hours: Hemodynamic parameters for last 24 hours: Physical Exam: (nursing notereviewed). Constitutional: oriented to person, place, and time. Appears well-developed Head: Normocep halic and atraumatic. Mouth/Throat: Oropharynx is clear and moist. Eyes: Conjunctivae and EOM are normal. Pupils are equal, round, and reactive to light. Neck: Normal range of motion. Neck supple. Cardiovascular: Normal rate, regular rhythm, normal heart sounds Pulmonary/Chest: Effort normal and breath sounds normal. Abdominal: Soft. Bowel sounds are normal. S/p surgery site intact no guarding Genitourinary: defer Musculoskeletal: exhibits no edema and no tenderness. Neurological: alert and oriented to person, place, and time. Skin: Skin is dry. Psychiatric: has a normal mood and affect. Behavior is normal. Judgment and thought conten t normal.Cognition intact. Data: Recent Labs Lab 07/25/1845307/24/1852307/23/18 1000 WBC 16.12* 19.70* 13.44* HGB 10.0* 9.6* 11.4 HCT 33.1* 32.1* 37.6 PLT 218 184 210 NEUTOPHILPCT -- -- 70.68 MONOPCT -- -- 8.60 Recent Labs Lab 07/25/1845307/24/1852307/23/18 1000 NA 137 137 142 K 3.5 4.4 3.8 CL 102 107 112* CO2 25 22* 20* BUN 27* 26* 23 CREATININE 2.0* 2.0* 1.81* PROT 7.4 7.2 7.7 BILITOT 0.5 0.3 1.3 ALT 10 17 12 AST 10 18 17 Phosphorus: No results for input(s): PHOS in the last 168 hours. No results for input(s): MG in the last 168 hours. No results for input(s): AMYLASE in the last 168 hours. No results for input(s): PHART, PO2ART, XVO0SLO, Z4UICMZJ, BEART in the last 168 hours. No results for input(s): APTT, INR, PTT in the last 168 hours. No results for input(s): TSH, T3FREE, FREET4 in the last 168 hours. No results for input(s): CKTOTAL, TROPONINI, TROPONINT, CKMBINDEX in the last 168 hours. EKG: @risresults@ Assessment/Problem List: Principal Problem: Status post total abdominal hysterectomy bilateral salphingooophorectomy for Fibroid Iron deficiency anemia due to chronic blood loss labile HTN DM type II CKD stage IV RA ASSESSMENT & PLAN patient is a 53 y.o. female who is being asked to be evaluated by our service on account o f medical issues Labile increasing BP, and she also has underlying diabetes CKD stgae IV and RA she is status post total abdominal hysterectomy bilateral salphingooophorectomy for Fibroid on 23 july by post op Iron deficiency anemia Received blood transfusion as well As on iron tabs after surgery BP trend climbing up avergaing 170s 180s systolic last 24 hours HR in 70 s 80s sinus Stable O2 sat She is on diurectic for BP pain control review lab review will start hydralazine 50 mg po TID for now F/ up trend if need add betablocker as well DM type II BS ranage About 177, 163 fasting lantus 20 unit At night with SSI will tiatred lantus 25 unit for now A1C send out RA No issue at this time she Is on humira weekly CKD stagae IV on IVF per primary team might also compound her BP as well avoid nephrotoxins f/ up trend dVT Pro Patient's old records and labs were reviewed in detail and summarized. Code Status: Full Code Primary Care Physician: ANTHONY SIGALA Thanks for involving Hospitalists in the care for this patient.We will clinically follow up with you on her case. REGINA FUNES MD, 07/25/2018 9:37 AM BP still labile Plan titrated up hydralzine Add metoprolol 50 mg po BID moniter documented in this encou nter Miscellaneous Notes Plan of Care - Conversion Transaction, Provider Unknown - 07/27/2018 11:50 AM PDT Plan of Care by Sparkle Pandya RN at 07/27/18 1150 Author: Sparkle Pandya RN Service: (none) Author Type: Registered Nurse Filed: 07/27/181149 Date of Service: 07/27/181149 Status: Signed Locomotive Crane Engineer: Sparkle Pandya RN (Registered Nurse) Problem: Daily Care Goal: Daily care needs are met Assess and monitor ability to perform self care and identify potential discharge needs. Outcome: Adequate for Discharge Pt is independent with all ADL's lan o f Care - Conversion Transaction, Provider Unknown - 07/27/2018 3:49 AM PDTFormatting of thi s note might be different from the original. Plan of Care by Lilian James RN at 07/27/18348 Author: Lilian James RN Service: (none) Author Type: Registered Nurse Filed: 07/27/18348 Date of Service: 07/27/18348 Status: Signed Locomotive Crane Engineer: Lilian James RN (Registered Nurse) Problem: Pain Goal: Patient's pain/discomfort is manageable Assess and monitor patient's pain using appropriate pain scale. Collaborate with interdisci plinary team and initiate plan and interventions as ordered. Re-assess patient's pain level approximately 1-2 hours after pain management intervention. Premedicate as needed. Outcome: Progressing Pt states pain is manageable and VSS. Will continue to monitor and medicate as needed. lan o f Care - Conversion Transaction, Provider Unknown - 07/26/2018 10:35 AM PDTFormatting of thi s note might be different from the original. Plan of Care by Leslie Pizano RN at 07/26/18 1035 Author: Leslie Pizano RN Service: (none) Author Type: Registered Nurse Filed: 07/26/18 103 Date of Service: 07/26/181034 Status: Signed Locomotive Crane Engineer: Leslie Pizano RN (Registered Nurse) Daily Care Daily care needs are met Progressing Discharge Barriers Patient's discharge needs are met Progressing Pain Patient's pain/discomfort is manageable Progressing Psychosocial Needs Demonstrates ability to cope with hospitalization/illness Progressing Safety Patient will be injury free during hospitalization Progressing lan o f Care - Conversion Transaction, Provider Unknown - 07/26/2018 4:27 AM PDTFormatting of thi s note might be different from the original. Plan of Care by Pooja Hagan RN at 07/26/18426 Author: Pooja Hagan RN Service: (none) Author Type: Registered Nurse Filed: 07/26/18428 Date of Service: 07/26/18426 Status: Signed Locomotive Crane Engineer: Pooja Hagan RN (Registered Nurse) Patient will be injury free during hospitalization Progressing Pt has been sleeping during the night. Fall safety measure precautions have been in place. Hourly rounding provided per protocol. Pt sleeping at this time. Will continue to monitor. lan o f Care - Conversion Transaction, Provider Unknown - 07/25/2018 11:55 AM PDTFormatting of thi s note might be different from the original. Plan of Care by Leslie Pizano RN at 07/25/18 115 Author: Leslie Pizano RN Service: (none) Author Type: Registered Nurse Filed: 07/25/18 115 Date of Service: 07/25/18 115 Status: Signed Locomotive Crane Engineer: Leslie Pizano RN (Registered Nurse) Daily Care Daily care needs are met Progressing Discharge Barriers Patient's discharge needs are met Progressing Pain Patient's pain/discomfort is manageable Progressing Psychosocial Needs Demonstrates ability to cope with hospitalization/illness Progressing Safety Patient will be injury free during hospitalization Progressing lan o f Care - Conversion Transaction, Provider Unknown - 07/25/2018 12:50 AM PDTFormatting of thi s note might be different from the original. Plan of Care by Sherri Belle RN at 07/25/18 005 Author: Sherri Belle RN Service: (none) Author Type: Registered Nurse Filed: 07/25/18 005 Date of Service: 07/25/1849 Status: Signed Locomotive Crane Engineer: Sherri Belle RN (Registered Nurse) Daily Care Daily care needs are met Progressing Discharge Barriers Patient's discharge needs are met Progressing Pain Patient's pain/discomfort is manageable Progressing Psychosocial Needs Demonstrates ability to cope with hospitalization/illness Progressing Collaborate with patient/family/caregiver to identify patient specific goals for this h ospitalization Progressing Safety Patient will be injury free during hospitalization Progressing Patient denies any pain or discomfort at this time. Will continue to monitor. lan o f Care - Conversion Transaction, Provider Unknown - 07/24/2018 9:15 AM PDTFormatting of thi s note might be different from the original. Plan of Care by Iqra Forrester RN at 07/24/18914 Author: Iqra Forrester RN Service: (none) Author Type: Registered Nurse Filed: 07/24/18915 Date of Service: 07/24/18914 Status: Signed Locomotive Crane Engineer: Iqra Forrester RN (Registered Nurse) Call light within reach, bed in lowest position, wheels locked, side rails up according to policy, non skid socks on and room free of clutter. Encouraged incentive spirometry use 10x/hr while awake. Educated and explained the importance of ambulation and encouraged ambulation in the [place]. Educated on pain scale and encouraged to use call light to notify staff if pain should incr ease. lan o f Care - Conversion Transaction, Provider Unknown - 07/23/2018 9:44 PM PDTFormatting of thi s note might be different from the original. Plan of Care by Dayna Valdez RN at 07/23/182143 Author: Dayna Valdez RN Service: (none) Author Type: Registered Nurse Filed: 07/23/182145 Date of Service: 07/23/182143 Status: Signed Locomotive Crane Engineer: Dayna Valdez RN (Registered Nurse) Pain Patient's pain/discomfort is manageable Progressing Safety Patient will be injury free during hospitalization Progressing Psychosocial Needs Demonstrates ability to cope with hospitalization/illness Progressing Collaborate with patient/family/caregiver to identify patient specific goals for this h ospitalization Progressing Pt tolerating pain well with PO pain medications. Tolerating diet well. Post-op vitals with in normal limits. Goal is for her to get up and walk in the [place] tonight. Calling for help a ppropriately. Will continue to monitor. Dayna Valdez RN 07/23/[id number] lan o f Care - Conversion Transaction, Provider Unknown - 07/23/2018 6:24 PM PDTFormatting of thi s note might be different from the original. Plan of Care by Leslie Pizano RN at 07/23/181823 Author: Leslie Pizano RN Service: (none) Author Type: Registered Nurse Filed: 07/23/181823 Date of Service: 07/23/181823 Status: Signed Locomotive Crane Engineer: Leslie Pizano RN (Registered Nurse) Daily Care Daily care needs are met Progressing Discharge Barriers Patient's discharge needs are met Progressing Pain Patient's pain/discomfort is manageable Progressing Psychosocial Needs Demonstrates ability to cope with hospitalization/illness Progressing Collaborate with patient/family/caregiver to identify patient specific goals for this h ospitalization Progressing Safety Patient will be injury free during hospitalization Progressing p Not e - Robin Ceron III, MD - 07/23/2018 2:51 PM PDT Op Note by Robin Ceron III, MD at 07/23/18 1451 Author: Robin Ceron III, MD Service: Obstetrics/Gynecology Author Type: Denisse jasmine Filed: 07/24/18 0810 Date of Service: 07/23/18 1451 Status: Signed Locomotive Crane Engineer: Robin Ceron III, MD (Physician) Related Notes: Original Note by Robin Ceron III, MD (Physician) filed at 07/10 08/28 1515 Merged With [facility] Service: Obstetrics & Gynecology Operative Note Pre-operative Diagnosis: Menorrhagia, Fibroid uterus, Iron deficiency anemia Post-operative Diagnosis: Same Procedure(s): (1) Total abdominal hysterectomy, left oophorectomy, right salphingooophorectomy (2) Lysis of adhesions Surgeon: Robin Ceron MD Sports Development Officer(s): Bethany Wise Anesthesia: General endotrachial anesthesia Estimated Blood Loss: 100 mL Other: IV Fluids: 800 ml Urine Output: 250 ml Implants: None Specimens: Uterus, cervix, right Fallopian tube, bilateral ovaries, 276 grams Indications: See pre-operative history and physical. Findings: Extensive dense adhesions of the sigmoid colon to the anterior abdominal wall. S urgically absent left Fallopian tube. Enlarged fibroid uterus Complications: Deserosalization of a portion of the sigmoid colon, which was repaired by Rinku Odell Description of Procedure: A 53-year-old female with menorrhagia secondary to fibroid uteru s resulting in iron deficiency anemia. She was seen for her preoperative evaluation yesterd ay at the office, was found to be profoundly anemic; therefore, she was transfused with 4 un its of packed red blood cells overnight. This morning, she was taken to the operating room after being consented for a total abdomin al hysterectomy with bilateral salpingo-oophorectomy. She was taken to the operating room a nd identified properly, cefazolin 2 g intravenously was given for surgical prophylaxis. Fol ey catheter was placed in the bladder. She was prepped and draped in the normal sterile fas hion, dorsal supine position. A vertical sagittal incision was made between the pubic symphysis and umbilicus. This was dissected down to the fascia, and fascia was carefully entered. The fascial incision was de veloped superiorly and inferiorly. The peritoneum was carefully entered and immediately marcelo eath the peritoneum was the sigmoid colon that was densely adherent to the anterior abdomina l wall. This was carefully lysed with a combination of blunt dissection and sharp dissectio n with Metzenbaum scissors. Lysis of adhesions took 30 minutes of operative time and at the conclusion of these 30 minutes, the sigmoid colon was still not completely freed from the anterior abdominal wall and at 6 square-centimeter area of sigmoid colon was deserosalized.. I therefore abandoned my attempt of lysis of adhesions and called Dr. Mateusz Odell, [facility] surgeon on-call to repair the serosa of the sigmoid colon. He graciously came into my op erating room, repaired the deserosalized portion of sigmoid colon, for which please refer to his separate dictation; and he completed the lysis of adhesions for me. After this, I assumed control of the surgery again and packed the patient's bowel cephalad with moist laparotomy sponges. The ovaries were identified on both sides. The left fallopi an tube was surgically absent and consistent with her history of ectopic that was surgically treated. The round ligaments on both sides were identified and divided with Liga Sure impact. The infundibulopelvic ligaments on both sides were identified and divided with a LigaSure impact. The dissection was developed on the broad ligament going from the parao varian towards the cornual areas of the uterus. The broad ligaments were then sequentially divided on both sides to the LigaSure impact towards the cervix. Bladder flap was develope d with Metzenbaum scissors and Bovie in combination. The uterine arteries on either side we re skeletonized and divided with a LigaSure impact. The cardinal ligaments on either side w ere sequentially divided on both sides with LigaSure impact going towards the vaginal cuff. The vaginal cuff was then cross clamped with Haydee clamps, sharply divided with Metzenbaum scissors and the specimen was removed into the patient's body in one piece comprising the u terus, the cervix, left and right ovaries and right fallopian tube. Pelvis was copiously ir rigated and suctioned. The vaginal cuff was closed with 0 Vicryl in a series of figure-of-e ight stitches with good hemostasis. The ureters on either side were palpated with a good ur eteral snap being felt. All instruments and sponges were removed from the patient's abdomen and the fascia was repa ired with loop PDS running stitches, subcuticular was closed with 2-0 plain catgut running s titches in layers, skin was closed with hakan. Stat abdominal x-ray was taken postoperati vely to confirm absence of retained instruments or sponges. I personally reviewed the x-ray image. This concluded the hysterectomy. The patient tolerated the procedure well. Sponge, lap, instrument and needle counts were c orrect. The patient was in good condition throughout the surgery. Condition: Stable Robin Ceron MD 07/23/2018 p Adeola - Og Odell MD - 07/23/2018 2:11 PM PDTFormatting of this note might be different fro m the original. Op Note by Og Odell MD at 07/23/18 141 Author: Og Odell MD Service: General Surgery Author Type: Physician Filed: 07/23/18 1417 Date of Service: 07/23/181410 Status: Signed Locomotive Crane Engineer: Og Odell MD (Physician) Merged With [facility] Service: General Surgery Operative Note Date of Surgery: 07/23/2018 Pre-operative Diagnosis: Partial-thickness injury to the sigmoid colon, adhesions of the s igmoid colon to the pelvic sidewall Post-operative Diagnosis: Same Procedure(s): Intraoperative consultation. Repair sigmoid colon. Minor lysis of adhesion s Surgeon: OG ODELL MD Sports Development Officer(s): Srai MOORE Anesthesiologist: Megha Patel CRNA Anesthesia: General endotrachial anesthesia Estimated Blood Loss: Less than 5 mL's Drains: None Indications: Sigmoid adhesions obscuring view of the uterus tubes and ovaries. Partial-th ickness injury involving serosa of the mid sigmoid. Findings: Serosa peeled off a segment of mid sigmoid colon as part of a adhesion. The the area dissected remained vascularized and attached to the adjacent:. The lumen and therefor e the mucosa was not violated. Muscle fibers were visible however this serosa was some miss ing therefore could not be reapproximated edge to edge. A mesocolonic fat pad was replaced over the area of deserosalization.. Adhesion of the sigmoid colon to the left anterior pelv ic wall was lysed with electrocautery Complications: None Description of Procedure: I was asked to a join Dr. Robin Ceron in the operation was already in progress to assess and assist with management of the sigmoid colon. During lysi s of adhesions for this hysterectomy a area of 2.5 x 2.5 cm on the right anterior wall of th e sigmoid colon had been deserosalized by traction and lysis of adhesions. We cannot reappr oximate the edges of the defect without causing a significant crimp in the mid sigmoid there fore the fat pad that had peeled off the colon and was still attached proximally was buttres sed down to the surface of the colon using interrupted 3-0 silk Lembert sutures. This reinf orced this whole area of the bowel and should work well. Also noted was adhesion of the mor e distal sigmoid colon to the anterior pelvic peritoneal surface which made it difficult to place retractors and visualize the uterus and adjacent structures. This was taken off its a vascular, post surgical adhesion points with electrocautery. No significant difficulty was encountered. There was no blood loss and no further injury to the colon. I departed the OR leaving the operative team to continue on with their planned operation. There is no need for patient to follow-up in my office as an outpatient unless specific shyann l related complications developed. Condition: Stable to PACU OG ODELL MD 07/23/2018 2:12 PM documented in this enc ounter Plan of Treatment Not on filedocumented as of this encounter Procedures + +--------+ + + + | Procedure Name | Priori | Date/Time | Associated Diagnosis | Comments | | | ty | | | | + +--------+ + + + | POC GLUCOSE | Routin | 07/27/2018 | | Results for this | | | e | 11:05 AM | | procedure are in the | | | | PDT | | results section. | + +--------+ + + + | POC GLUCOSE | Routin | 07/27/2018 | | Results for this | | | e | 5:24 AM | | procedure are in the | | | | PDT | | results section. | + +--------+ + + + | EXTERNAL LAB: CBC | Routin | 07/27/2018 | | Results for this | | | e | 4:25 AM | | procedure are in the | | | | PDT | | results section. | + +--------+ + + + | COMPREHENSIVE | Routin | 07/27/2018 | | Results for this | | METABOLIC PANEL | e | 4:25 AM | | procedure are in the | | | | PDT | | results section. | + +--------+ + + + | POC GLUCOSE | Routin | 07/26/2018 | | Results for this | | | e | 9:31 PM | | procedure are in the | | | | PDT | | results section. | + +--------+ + + + | POC GLUCOSE | Routin | 07/26/2018 | | Results for this | | | e | 4:29 PM | | procedure are in the | | | | PDT | | results section. | + +--------+ + + + | POC GLUCOSE | Routin | 07/26/2018 | | Results for this | | | e | 11:21 AM | | procedure are in the | | | | PDT | | results section. | + +--------+ + + + | POC GLUCOSE | Routin | 07/26/2018 | | Results for this | | | e | 5:31 AM | | procedure are in the | | | | PDT | | results section. | + +--------+ + + + | EXTERNAL LAB: CBC | Routin | 07/26/2018 | | Results for this | | | e | 5:26 AM | | procedure are in the | | | | PDT | | results section. | + +--------+ + + + | HEMOGLOBIN A1C | Routin | 07/26/2018 | | Results for this | | | e | 5:26 AM | | procedure are in the | | | | PDT | | results section. | + +--------+ + + + | COMPREHENSIVE | Routin | 07/26/2018 | | Results for this | | METABOLIC PANEL | e | 5:26 AM | | procedure are in the | | | | PDT | | results section. | + +--------+ + + + | POC GLUCOSE | Routin | 07/25/2018 | | Results for this | | | e | 9:35 PM | | procedure are in the | | | | PDT | | results section. | + +--------+ + + + | POC GLUCOSE | Routin | 07/25/2018 | | Results for this | | | e | 4:15 PM | | procedure are in the | | | | PDT | | results section. | + +--------+ + + + | POC GLUCOSE | Routin | 07/25/2018 | | Results for this | | | e | 11:30 AM | | procedure are in the | | | | PDT | | results section. | + +--------+ + + + | POC GLUCOSE | Routin | 07/25/2018 | | Results for this | | | e | 5:44 AM | | procedure are in the | | | | PDT | | results section. | + +--------+ + + + | EXTERNAL LAB: CBC | Routin | 07/25/2018 | | Results for this | | | e | 4:54 AM | | procedure are in the | | | | PDT | | results section. | + +--------+ + + + | COMPREHENSIVE | Routin | 07/25/2018 | | Results for this | | METABOLIC PANEL | e | 4:54 AM | | procedure are in the | | | | PDT | | results section. | + +--------+ + + + | POC GLUCOSE | Routin | 07/24/2018 | | Results for this | | | e | 9:33 PM | | procedure are in the | | | | PDT | | results section. | + +--------+ + + + | POC GLUCOSE | Routin | 07/24/2018 | | Results for this | | | e | 4:16 PM | | procedure are in the | | | | PDT | | results section. | + +--------+ + + + | POC GLUCOSE | Routin | 07/24/2018 | | Results for this | | | e | 11:57 AM | | procedure are in the | | | | PDT | | results section. | + +--------+ + + + | EXTERNAL LAB: CBC | Routin | 07/24/2018 | | Results for this | | | e | 5:24 AM | | procedure are in the | | | | PDT | | results section. | + +--------+ + + + | POC GLUCOSE | Routin | 07/24/2018 | | Results for this | | | e | 5:24 AM | | procedure are in the | | | | PDT | | results section. | + +--------+ + + + | COMPREHENSIVE | Routin | 07/24/2018 | | Results for this | | METABOLIC PANEL | e | 5:24 AM | | procedure are in the | | | | PDT | | results section. | + +--------+ + + + | POC GLUCOSE | Routin | 07/23/2018 | | Results for this | | | e | 9:16 PM | | procedure are in the | | | | PDT | | results section. | + +--------+ + + + | POC GLUCOSE | Routin | 07/23/2018 | | Results for this | | | e | 4:10 PM | | procedure are in the | | | | PDT | | results section. | + +--------+ + + + | POC GLUCOSE | Routin | 07/23/2018 | | Results for this | | | e | 3:10 PM | | procedure are in the | | | | PDT | | results section. | + +--------+ + + + | TISSUE REQUEST FOR | Routin | 07/23/2018 | | Results for this | | PATHOLOGY (NON-ORD) | e | 3:00 PM | | procedure are in the | | | | PDT | | results section. | + +--------+ + + + | ECG 12 LEAD | Routin | 07/23/2018 | | Results for this | | | e | 10:16 AM | | procedure are in the | | | | PDT | | results section. | + +--------+ + + + | POC GLUCOSE | Routin | 07/23/2018 | | Results for this | | | e | 10:04 AM | | procedure are in the | | | | PDT | | results section. | + +--------+ + + + | EXTERNAL LAB: CBC | Routin | 07/23/2018 | | Results for this | | | e | 10:00 AM | | procedure are in the | | | | PDT | | results section. | + +--------+ + + + | COMPREHENSIVE | Routin | 07/23/2018 | | Results for this | | METABOLIC PANEL | e | 10:00 AM | | procedure are in the | | | | PDT | | results section. | + +--------+ + + + documented in this encounter Results POC Glucose (07/27/2018 11:05 AM PDT) + + + + + + | Component | Value | Ref Range | Performed | Pathologist | | | | | At | Signature | + + + + + + | Glucose, | 190 (H)Comment: Testing | 65 - 99 mg/dL | EXTERNAL | | | Fingerstick | performed at [facility];[address] | | LAB | | | | [address];[place], [place] | | | | | | [address] | | | | + + + + + + + + | Specimen | + + | | + + + +---------+ + + | Performing | Address | City/State/Zipcode | Phone Number | | Organization | | | | + +---------+ + + | EXTERNAL LAB | | | | + +---------+ + + POC Glucose (07/27/2018 5:24 AM PDT) + + + + + + | Component | Value | Ref Range | Performed | Pathologist | | | | | At | Signature | + + + + + + | Glucose, | 144 (H)Comment: Testing | 65 - 99 mg/dL | EXTERNAL | | | Fingerstick | performed at [facility];[address] | | LAB | | | | [address];[place] | | | | | | [address] | | | | + + + + + + + + | Specimen | + + | | + + + +---------+ + + | Performing | Address | City/State/Zipcode | Phone Number | | Organization | | | | + +---------+ + + | EXTERNAL LAB | | | | + +---------+ + + External Lab: CBC (07/27/2018 4:25 AM PDT) + + +---- + + + | Component | Value | Ref Range | Performed | Pathologist | | | | | At | Signature | + + +---- + + + | WBC | 18.66 (H) | 3.8 0 - 11.00 | EXTERNAL | | | | | K/u L | LAB | | + + +---- + + + | Non- | 5.17 (H) | 3.7 0 - 5.10 | EXTERNAL | | | Red Blood | | M/u L | LAB | | | Cells | | | | | | Counted | | | | | + + +---- + + + | Hemoglobin | 11.1 (L) | 11. 3 - 15.5 | EXTERNAL | | | | | g/d L | LAB | | + + +---- + + + | Hematocrit, | 36.7 | 34. 0 - 46.0 % | EXTERNAL | | | POC | | | LAB | | + + +---- + + + | MCV | 71.1 (L) | 80. 0 - 100.0 fl | EXTERNAL | | | | | | LAB | | + + +---- + + + | MCH | 21.5 (L) | 27. 0 - 34.0 pg | EXTERNAL | | | | | | LAB | | + + +---- + + + | MCHC | 30.3 (L) | 32. 0 - 35.5 | EXTERNAL | | | | | g/d L | LAB | | + + +---- + + + | RDW-CV | 73.1 (H) | 37 - 53 fl | EXTERNAL | | | | | | LAB | | + + +---- + + + | Platelet | 337 | 150 - 400 K/uL | EXTERNAL | | | Count | | | LAB | | | Plasma | | | | | + + +---- + + + | MPV | 9.5 | fl | EXTERNAL | | | | | | LAB | | + + +---- + + + | Differentia | AUTOMATED | | EXTERNAL | | | l Type | | | LAB | | + + +---- + + + | % Segmented | 80.37 | % | EXTERNAL | | | | | | LAB | | | Neutrophils | | | | | + + +---- + + + | % | 8.58 | % | EXTERNAL | | | Lymphocytes | | | LAB | | + + +---- + + + | % Monocytes | 8.03 | % | EXTERNAL | | | | | | LAB | | + + +---- + + + | % | 1.95 | % | EXTERNAL | | | Eosinophils | | | LAB | | + + +---- + + + | % Basophils | 1.07 | % | EXTERNAL | | | | | | LAB | | + + +---- + + + | Absolute | 14.99 (H) | 1.9 0 - 7.40 | EXTERNAL | | | Segmented | | K/u L | LAB | | | Neutrophils | | | | | + + +---- + + + | Absolute | 1.60 | 1.0 0 - 3.90 | EXTERNAL | | | Lymphocytes | | K/u L | LAB | | + + +---- + + + | Absolute | 1.50 (H) | 0.0 0 - 0.80 | EXTERNAL | | | Monocytes | | K/u L | LAB | | + + +---- + + + | Absolute | 0.36 | 0.0 0 - 0.50 | EXTERNAL | | | Eosinophils | | K/u L | LAB | | + + +---- + + + | Absolute | 0.20 (H) | 0.0 0 - 0.10 | EXTERNAL | | | Basophils | | K/u L | LAB | | + + +---- + + + | RBC | 4+Comment: | | EXTERNAL | | | Morphology | ANISO2+HYPO2+MICRONORMAL | | LAB | | | | PLT MORPHTesting | | | | | | performed at [facility], [address] | | | | | | [facility], | | | | | | [place] [address] | | | | | |MICRO | | | | | |NORMAL PLT MORPH | | | | | |Testing performed at [facility], [address] [facility], [place] [address] | | | | | | | | | | + + +---- + + + + + | Specimen | + + | Blood specimen | | (specimen) | + + + +---------+ + + | Performing | Address | City/State/Zipcode | Phone Number | | Organization | | | | + +---------+ + + | EXTERNAL LAB | | | | + +---------+ + + Comprehensive Metabolic Panel (07/27/2018 4:25 AM PDT) + + + + + + | Component | Value | Ref Range | Performed | Pathologist | | | | | At | Signature | + + + + + + | Na | 136 | 135 - 145 | EXTERNAL | | | | | mmol/L | LAB | | + + + + + + | K | 3.8 | 3.5 - 4.9 | EXTERNAL | | | | | mmol/L | LAB | | + + + + + + | Cl | 101 | 99 - 109 mmol/L | EXTERNAL | | | | | | LAB | | + + + + + + | CO2 | 24 | 23 - 32 mmol/L | EXTERNAL | | | | | | LAB | | + + + + + + | Anion Gap | 15 | 5 - 20 mmol/L | EXTERNAL | | | | | | LAB | | + + + + + + | Glucose, | 132 (H) | 65 - 99 mg/dL | EXTERNAL | | | Fasting | | | LAB | | + + + + + + | BUN | 28 (H) | 8 - 25 mg/dL | EXTERNAL | | | | | | LAB | | + + + + + + | Creatinine | 2.0 (H) | 0.50 - 1.00 | EXTERNAL | | | | | mg/dL | LAB | | + + + + + + | BUN/Creatin | 14 | | EXTERNAL | | | ine Ratio | | | LAB | | + + + + + + | Calcium | 9.0 | 8.5 - 10.5 | EXTERNAL | | | | | mg/dL | LAB | | + + + + + + | Protein, | 7.1 | 6.3 - 8.2 g/dL | EXTERNAL | | | Total | | | LAB | | + + + + + + | Albumin | 2.5 (L) | 3.6 - 5.0 g/dL | EXTERNAL | | | | | | LAB | | + + + + + + | Globulin | 4.6 | 1.3 - 4.9 g/dL | EXTERNAL | | | | | | LAB | | + + + + + + | A/G Ratio | 0.5 (L) | 1.0 - 2.4 | EXTERNAL | | | | | | LAB | | + + + + + + | Bilirubin | 0.8 | 0.1 - 1.5 mg/dL | EXTERNAL | | | Total | | | LAB | | + + + + + + | ALP, | 79 | 35 - 115 U/L | EXTERNAL | | | External | | | LAB | | + + + + + + | AST | 14 | 10 - 45 U/L | EXTERNAL | | | | | | LAB | | + + + + + + | ALT | 10 | 10 - 65 U/L | EXTERNAL | | | | | | LAB | | + + + + + + | Estimated | 26 (L)Comment: GFR <60: | mL/min/1.73m2 | EXTERNAL | | | GFR | CHRONIC KIDNEY DISEASE, | | LAB | | | | IF FOUND OVER A 3 MONTH | | | | | | PERIOD.GFR <15: KIDNEY | | | | | | FAILURE.FOR | | | | | | AMERICANS, MULTIPLY THE | | | | | | CALCULATED GFR BY | | | | | | 1.210.This eGFR is | | | | | | calculated using the | | | | | | MDRD IDMS traceable | | | | | | equation.Testing | | | | | | performed at [facility], [address] | | | | | | [facility], | | | | | | [place] [address] | | | | + + + + + + + + | Specimen | + + | Blood specimen | | (specimen) | + + + +---------+ + + | Performing | Address | City/State/Zipcode | Phone Number | | Organization | | | | + +---------+ + + | EXTERNAL LAB | | | | + +---------+ + + POC Glucose (07/26/2018 9:31 PM PDT) + + + + + + | Component | Value | Ref Range | Performed | Pathologist | | | | | At | Signature | + + + + + + | Glucose, | 205 (H)Comment: Testing | 65 - 99 mg/dL | EXTERNAL | | | Fingerstick | performed at [facility];[address] | | LAB | | | | [address];[place] | | | | | | [address] | | | | + + + + + + + + | Specimen | + + | | + + + +---------+ + + | Performing | Address | City/State/Zipcode | Phone Number | | Organization | | | | + +---------+ + + | EXTERNAL LAB | | | | + +---------+ + + POC Glucose (07/26/2018 4:29 PM PDT) + + + + + + | Component | Value | Ref Range | Performed | Pathologist | | | | | At | Signature | + + + + + + | Glucose, | 159 (H)Comment: Testing | 65 - 99 mg/dL | EXTERNAL | | | Fingerstick | performed at [facility];[address] | | LAB | | | | [address];[place] | | | | | | [address] | | | | + + + + + + + + | Specimen | + + | | + + + +---------+ + + | Performing | Address | City/State/Zipcode | Phone Number | | Organization | | | | + +---------+ + + | EXTERNAL LAB | | | | + +---------+ + + POC Glucose (07/26/2018 11:21 AM PDT) + + + + + + | Component | Value | Ref Range | Performed | Pathologist | | | | | At | Signature | + + + + + + | Glucose, | 196 (H)Comment: Testing | 65 - 99 mg/dL | EXTERNAL | | | Fingerstick | performed at [facility];[address] | | LAB | | | | [address];[place] | | | | | | [address] | | | | + + + + + + + + | Specimen | + + | | + + + +---------+ + + | Performing | Address | City/State/Zipcode | Phone Number | | Organization | | | | + +---------+ + + | EXTERNAL LAB | | | | + +---------+ + + POC Glucose (07/26/2018 5:31 AM PDT) + + + + + + | Component | Value | Ref Range | Performed | Pathologist | | | | | At | Signature | + + + + + + | Glucose, | 149 (H)Comment: Testing | 65 - 99 mg/dL | EXTERNAL | | | Fingerstick | performed at [facility];[address] | | LAB | | | | [address];[place] | | | | | | [address] | | | | + + + + + + + + | Specimen | + + | | + + + +---------+ + + | Performing | Address | City/State/Zipcode | Phone Number | | Organization | | | | + +---------+ + + | EXTERNAL LAB | | | | + +---------+ + + External Lab: PADMINI (07/26/2018 5:26 AM PDT) + + +---- + + + | Component | Value | Ref Range | Performed | Pathologist | | | | | At | Signature | + + +---- + + + | WBC | 18.09 (H) | 3.8 0 - 11.00 | EXTERNAL | | | | | K/u L | LAB | | + + +---- + + + | Non- | 5.07 | 3.7 0 - 5.10 | EXTERNAL | | | Red Blood | | M/u L | LAB | | | Cells | | | | | | Counted | | | | | + + +---- + + + | Hemoglobin | 10.9 (L) | 11. 3 - 15.5 | EXTERNAL | | | | | g/d L | LAB | | + + +---- + + + | Hematocrit, | 35.8 | 34. 0 - 46.0 % | EXTERNAL | | | POC | | | LAB | | + + +---- + + + | MCV | 70.7 (L) | 80. 0 - 100.0 fl | EXTERNAL | | | | | | LAB | | + + +---- + + + | MCH | 21.5 (L) | 27. 0 - 34.0 pg | EXTERNAL | | | | | | LAB | | + + +---- + + + | MCHC | 30.4 (L) | 32. 0 - 35.5 | EXTERNAL | | | | | g/d L | LAB | | + + +---- + + + | RDW-CV | 70.9 (H) | 37 - 53 fl | EXTERNAL | | | | | | LAB | | + + +---- + + + | Platelet | 292 | 150 - 400 K/uL | EXTERNAL | | | Count | | | LAB | | | Plasma | | | | | + + +---- + + + | MPV | 9.1 | fl | EXTERNAL | | | | | | LAB | | + + +---- + + + | Differentia | AUTOMATED | | EXTERNAL | | | l Type | | | LAB | | + + +---- + + + | % Segmented | 76.73 | % | EXTERNAL | | | | | | LAB | | | Neutrophils | | | | | + + +---- + + + | % | 11.38 | % | EXTERNAL | | | Lymphocytes | | | LAB | | + + +---- + + + | % Monocytes | 8.98 | % | EXTERNAL | | | | | | LAB | | + + +---- + + + | % | 1.94 | % | EXTERNAL | | | Eosinophils | | | LAB | | + + +---- + + + | % Basophils | 0.97 | % | EXTERNAL | | | | | | LAB | | + + +---- + + + | Absolute | 13.89 (H) | 1.9 0 - 7.40 | EXTERNAL | | | Segmented | | K/u L | LAB | | | Neutrophils | | | | | + + +---- + + + | Absolute | 2.06 | 1.0 0 - 3.90 | EXTERNAL | | | Lymphocytes | | K/u L | LAB | | + + +---- + + + | Absolute | 1.62 (H) | 0.0 0 - 0.80 | EXTERNAL | | | Monocytes | | K/u L | LAB | | + + +---- + + + | Absolute | 0.35 | 0.0 0 - 0.50 | EXTERNAL | | | Eosinophils | | K/u L | LAB | | + + +---- + + + | Absolute | 0.18 (H) | 0.0 0 - 0.10 | EXTERNAL | | | Basophils | | K/u L | LAB | | + + +---- + + + | RBC | 4+Comment: | | EXTERNAL | | | Morphology | ANISO2+POLY2+HYPO3+MICRO | | LAB | | | | NORMAL PLT MORPHTesting | | | | | | performed at [facility], [address] | | | | | | [facility], | | | | | | [place] [address] | | | | | |HYPO | | | | | |3+ | | | | | |MICRO | | | | | |NORMAL PLT MORPH | | | | | |Testing performed at [facility], [address] [place] [address] | | | | | | | | | | + + +---- + + + + + | Specimen | + + | Blood specimen | | (specimen) | + + + +---------+ + + | Performing | Address | City/State/Zipcode | Phone Number | | Organization | | | | + +---------+ + + | EXTERNAL LAB | | | | + +---------+ + + Hemoglobin A1C (07/26/2018 5:26 AM PDT) + + + + + + | Component | Value | Ref Range | Performed | Pathologist | | | | | At | Signature | + + + + + + | Hemoglobin | 7.4 (H)Comment: HbA1c | 4.0 - 6.0 % | EXTERNAL | | | A1c | method is certified by | | LAB | | | | NG[employer] and traceable to | | | | | | the DCCT reference | | | | | | method.ADA guidelines | | | | | | indicate: | | | | | | Prediabetes: 5.7 - 6.4 | | | | | | Diabetes: >6.4 | | | | | | Glycemic control for | | | | | | adults with diabetes: | | | | | | <7.0Effective 05/27/2018: | | | | | | Note New Method | | | | + + + + + + | Glycohemogl | 166 (H)Comment: | mg/dL | EXTERNAL | | | obin | Estimated Average | | LAB | | | (GHb),Total | Glucose calculated from | | | | | | hemoglobin A1c by use of | | | | | | the ADA recommended | | | | | | formula.Testing | | | | | | performed at [facility], [address] | | | | | | [facility], | | | | | | [place] [address] | | | | + + + + + + + + | Specimen | + + | Blood specimen | | (specimen) | + + + +---------+ + + | Performing | Address | City/State/Zipcode | Phone Number | | Organization | | | | + +---------+ + + | EXTERNAL LAB | | | | + +---------+ + + Comprehensive Metabolic Panel (07/26/2018 5:26 AM PDT) + + + + + + | Component | Value | Ref Range | Performed | Pathologist | | | | | At | Signature | + + + + + + | Na | 137 | 135 - 145 | EXTERNAL | | | | | mmol/L | LAB | | + + + + + + | K | 3.5 | 3.5 - 4.9 | EXTERNAL | | | | | mmol/L | LAB | | + + + + + + | Cl | 100 | 99 - 109 mmol/L | EXTERNAL | | | | | | LAB | | + + + + + + | CO2 | 26 | 23 - 32 mmol/L | EXTERNAL | | | | | | LAB | | + + + + + + | Anion Gap | 15 | 5 - 20 mmol/L | EXTERNAL | | | | | | LAB | | + + + + + + | Glucose, | 128 (H) | 65 - 99 mg/dL | EXTERNAL | | | Fasting | | | LAB | | + + + + + + | BUN | 24 | 8 - 25 mg/dL | EXTERNAL | | | | | | LAB | | + + + + + + | Creatinine | 1.8 (H) | 0.50 - 1.00 | EXTERNAL | | | | | mg/dL | LAB | | + + + + + + | BUN/Creatin | 13 | | EXTERNAL | | | ine Ratio | | | LAB | | + + + + + + | Calcium | 9.0 | 8.5 - 10.5 | EXTERNAL | | | | | mg/dL | LAB | | + + + + + + | Protein, | 7.9 | 6.3 - 8.2 g/dL | EXTERNAL | | | Total | | | LAB | | + + + + + + | Albumin | 2.7 (L) | 3.6 - 5.0 g/dL | EXTERNAL | | | | | | LAB | | + + + + + + | Globulin | 5.2 (H) | 1.3 - 4.9 g/dL | EXTERNAL | | | | | | LAB | | + + + + + + | A/G Ratio | 0.5 (L) | 1.0 - 2.4 | EXTERNAL | | | | | | LAB | | + + + + + + | Bilirubin | 0.7 | 0.1 - 1.5 mg/dL | EXTERNAL | | | Total | | | LAB | | + + + + + + | ALP, | 80 | 35 - 115 U/L | EXTERNAL | | | External | | | LAB | | + + + + + + | AST | 24 | 10 - 45 U/L | EXTERNAL | | | | | | LAB | | + + + + + + | ALT | 9 (L) | 10 - 65 U/L | EXTERNAL | | | | | | LAB | | + + + + + + | Estimated | 29 (L)Comment: GFR <60: | mL/min/1.73m2 | EXTERNAL | | | GFR | CHRONIC KIDNEY DISEASE, | | LAB | | | | IF FOUND OVER A 3 MONTH | | | | | | PERIOD.GFR <15: KIDNEY | | | | | | FAILURE.FOR | | | | | | AMERICANS, MULTIPLY THE | | | | | | CALCULATED GFR BY | | | | | | 1.210.This eGFR is | | | | | | calculated using the | | | | | | MDRD IDMS traceable | | | | | | equation.Testing | | | | | | performed at [facility], [address] | | | | | [address], | | | | | | [place] [address] | | | | + + + + + + + + | Specimen | + + | Blood specimen | | (specimen) | + + + +---------+ + + | Performing | Address | City/State/Zipcode | Phone Number | | Organization | | | | + +---------+ + + | EXTERNAL LAB | | | | + +---------+ + + POC Glucose (07/25/2018 9:35 PM PDT) + + + + + + | Component | Value | Ref Range | Performed | Pathologist | | | | | At | Signature | + + + + + + | Glucose, | 206 (H)Comment: Testing | 65 - 99 mg/dL | EXTERNAL | | | Fingerstick | performed at [facility];[address] | | LAB | | | | [address];[place] | | | | | | [address] | | | | + + + + + + + + | Specimen | + + | | + + + +---------+ + + | Performing | Address | City/State/Zipcode | Phone Number | | Organization | | | | + +---------+ + + | EXTERNAL LAB | | | | + +---------+ + + POC Glucose (07/25/2018 4:15 PM PDT) + + + + + + | Component | Value | Ref Range | Performed | Pathologist | | | | | At | Signature | + + + + + + | Glucose, | 186 (H)Comment: Testing | 65 - 99 mg/dL | EXTERNAL | | | Fingerstick | performed at [facility];[address] | | LAB | | | | [address];[place] | | | | | | [address] | | | | + + + + + + + + | Specimen | + + | | + + + +---------+ + + | Performing | Address | City/State/Zipcode | Phone Number | | Organization | | | | + +---------+ + + | EXTERNAL LAB | | | | + +---------+ + + POC Glucose (07/25/2018 11:30 AM PDT) + + + + + + | Component | Value | Ref Range | Performed | Pathologist | | | | | At | Signature | + + + + + + | Glucose, | 233 (H)Comment: Testing | 65 - 99 mg/dL | EXTERNAL | | | Fingerstick | performed at [facility];[address] | | LAB | | | | [address];[place] | | | | | | [address] | | | | + + + + + + + + | Specimen | + + | | + + + +---------+ + + | Performing | Address | City/State/Zipcode | Phone Number | | Organization | | | | + +---------+ + + | EXTERNAL LAB | | | | + +---------+ + + POC Glucose (07/25/2018 5:44 AM PDT) + + + + + + | Component | Value | Ref Range | Performed | Pathologist | | | | | At | Signature | + + + + + + | Glucose, | 167 (H)Comment: Testing | 65 - 99 mg/dL | EXTERNAL | | | Fingerstick | performed at [facility];[address] | | LAB | | | | [address];[place] | | | | | | [address] | | | | + + + + + + + + | Specimen | + + | | + + + +---------+ + + | Performing | Address | City/State/Zipcode | Phone Number | | Organization | | | | + +---------+ + + | EXTERNAL LAB | | | | + +---------+ + + External Lab: PADMINI (07/25/2018 4:54 AM PDT) + + +---- + + + | Component | Value | Ref Range | Performed | Pathologist | | | | | At | Signature | + + +---- + + + | WBC | 16.12 (H) | 3.8 0 - 11.00 | EXTERNAL | | | | | K/u L | LAB | | + + +---- + + + | Non- | 4.69 | 3.7 0 - 5.10 | EXTERNAL | | | Red Blood | | M/u L | LAB | | | Cells | | | | | | Counted | | | | | + + +---- + + + | Hemoglobin | 10.0 (L) | 11. 3 - 15.5 | EXTERNAL | | | | | g/d L | LAB | | + + +---- + + + | Hematocrit, | 33.1 (L) | 34. 0 - 46.0 % | EXTERNAL | | | POC | | | LAB | | + + +---- + + + | MCV | 70.5 (L) | 80. 0 - 100.0 fl | EXTERNAL | | | | | | LAB | | + + +---- + + + | MCH | 21.2 (L) | 27. 0 - 34.0 pg | EXTERNAL | | | | | | LAB | | + + +---- + + + | MCHC | 30.1 (L) | 32. 0 - 35.5 | EXTERNAL | | | | | g/d L | LAB | | + + +---- + + + | RDW-CV | 72.2 (H) | 37 - 53 fl | EXTERNAL | | | | | | LAB | | + + +---- + + + | Platelet | 218 | 150 - 400 K/uL | EXTERNAL | | | Count | | | LAB | | | Plasma | | | | | + + +---- + + + | MPV | 9.1 | fl | EXTERNAL | | | | | | LAB | | + + +---- + + + | Differentia | MANUAL | | EXTERNAL | | | l Type | | | LAB | | + + +---- + + + | Segmented | 67 | % | EXTERNAL | | | Neutrophils | | | LAB | | | Manual | | | | | + + +---- + + + | Lymphocytes | 17 | % | EXTERNAL | | | Manual | | | LAB | | + + +---- + + + | Monocytes | 13 | % | EXTERNAL | | | Manual | | | LAB | | + + +---- + + + | Eosinophils | 3 | % | EXTERNAL | | | Manual | | | LAB | | + + +---- + + + | Absolute | 10.80 (H) | 1.9 0 - 7.40 | EXTERNAL | | | Neutrophils | | K/u L | LAB | | + + +---- + + + | Absolute | 2.74 | 1.0 0 - 3.90 | EXTERNAL | | | Lymphocytes | | K/u L | LAB | | + + +---- + + + | Absolute | 2.10 (H) | 0.0 0 - 0.80 | EXTERNAL | | | Monocytes | | K/u L | LAB | | + + +---- + + + | Absolute | 0.48 | 0.0 0 - 0.50 | EXTERNAL | | | Eosinophils | | K/u L | LAB | | + + +---- + + + | RBC | NORMAL PLT MORPHComment: | | EXTERNAL | | | Morphology | | | LAB | | | | 1+SCHISTOS4+ANISO2+POLY2 | | | | | | +HYPO2+MICROTesting | | | | | | performed at [facility], [address] | | | | | | [facility] | | | | | | [place] [address] | | | | | |POLY | | | | | |2+ | | | | | |HYPO | | | | | |2+ | | | | | |MICRO | | | | | |Testing performed at [facility], [address] [place] [address] | | | | | | | | | | + + +---- + + + + + | Specimen | + + | Blood specimen | | (specimen) | + + + +---------+ + + | Performing | Address | City/State/Zipcode | Phone Number | | Organization | | | | + +---------+ + + | EXTERNAL LAB | | | | + +---------+ + + Comprehensive Metabolic Panel (07/25/2018 4:54 AM PDT) + + + + + + | Component | Value | Ref Range | Performed | Pathologist | | | | | At | Signature | + + + + + + | Na | 137 | 135 - 145 | EXTERNAL | | | | | mmol/L | LAB | | + + + + + + | K | 3.5 | 3.5 - 4.9 | EXTERNAL | | | | | mmol/L | LAB | | + + + + + + | Cl | 102 | 99 - 109 mmol/L | EXTERNAL | | | | | | LAB | | + + + + + + | CO2 | 25 | 23 - 32 mmol/L | EXTERNAL | | | | | | LAB | | + + + + + + | Anion Gap | 14 | 5 - 20 mmol/L | EXTERNAL | | | | | | LAB | | + + + + + + | Glucose, | 163 (H) | 65 - 99 mg/dL | EXTERNAL | | | Fasting | | | LAB | | + + + + + + | BUN | 27 (H) | 8 - 25 mg/dL | EXTERNAL | | | | | | LAB | | + + + + + + | Creatinine | 2.0 (H) | 0.50 - 1.00 | EXTERNAL | | | | | mg/dL | LAB | | + + + + + + | BUN/Creatin | 14 | | EXTERNAL | | | ine Ratio | | | LAB | | + + + + + + | Calcium | 9.1 | 8.5 - 10.5 | EXTERNAL | | | | | mg/dL | LAB | | + + + + + + | Protein, | 7.4 | 6.3 - 8.2 g/dL | EXTERNAL | | | Total | | | LAB | | + + + + + + | Albumin | 2.6 (L) | 3.6 - 5.0 g/dL | EXTERNAL | | | | | | LAB | | + + + + + + | Globulin | 4.8 | 1.3 - 4.9 g/dL | EXTERNAL | | | | | | LAB | | + + + + + + | A/G Ratio | 0.5 (L) | 1.0 - 2.4 | EXTERNAL | | | | | | LAB | | + + + + + + | Bilirubin | 0.5 | 0.1 - 1.5 mg/dL | EXTERNAL | | | Total | | | LAB | | + + + + + + | ALP, | 72 | 35 - 115 U/L | EXTERNAL | | | External | | | LAB | | + + + + + + | AST | 10 | 10 - 45 U/L | EXTERNAL | | | | | | LAB | | + + + + + + | ALT | 10 | 10 - 65 U/L | EXTERNAL | | | | | | LAB | | + + + + + + | Estimated | 26 (L)Comment: GFR <60: | mL/min/1.73m2 | EXTERNAL | | | GFR | CHRONIC KIDNEY DISEASE, | | LAB | | | | IF FOUND OVER A 3 MONTH | | | | | | PERIOD.GFR <15: KIDNEY | | | | | | FAILURE.FOR | | | | | | AMERICANS, MULTIPLY THE | | | | | | CALCULATED GFR BY | | | | | | 1.210.This eGFR is | | | | | | calculated using the | | | | | | MDRD IDAR traceable | | | | | | equation.Testing | | | | | | performed at [facility], [address] | | | | | | [facility], | | | | | | [place] [address] | | | | + + + + + + + + | Specimen | + + | Blood specimen | | (specimen) | + + + +---------+ + + | Performing | Address | City/State/Zipcode | Phone Number | | Organization | | | | + +---------+ + + | EXTERNAL LAB | | | | + +---------+ + + POC Glucose (07/24/2018 9:33 PM PDT) + + + + + + | Component | Value | Ref Range | Performed | Pathologist | | | | | At | Signature | + + + + + + | Glucose, | 242 (H)Comment: Testing | 65 - 99 mg/dL | EXTERNAL | | | Fingerstick | performed at [facility];[address] | | LAB | | | | [address];[place] | | | | | | [address] | | | | + + + + + + + + | Specimen | + + | | + + + +---------+ + + | Performing | Address | City/State/Zipcode | Phone Number | | Organization | | | | + +---------+ + + | EXTERNAL LAB | | | | + +---------+ + + POC Glucose (07/24/2018 4:16 PM PDT) + + + + + + | Component | Value | Ref Range | Performed | Pathologist | | | | | At | Signature | + + + + + + | Glucose, | 241 (H)Comment: Testing | 65 - 99 mg/dL | EXTERNAL | | | Fingerstick | performed at [facility];[address] | | LAB | | | | [address];[place], [place] | | | | | | [address] | | | | + + + + + + + + | Specimen | + + | | + + + +---------+ + + | Performing | Address | City/State/Zipcode | Phone Number | | Organization | | | | + +---------+ + + | EXTERNAL LAB | | | | + +---------+ + + POC Glucose (07/24/2018 11:57 AM PDT) + + + + + + | Component | Value | Ref Range | Performed | Pathologist | | | | | At | Signature | + + + + + + | Glucose, | 226 (H)Comment: Testing | 65 - 99 mg/dL | EXTERNAL | | | Fingerstick | performed at [facility];[address] | | LAB | | | | [address];[place] | | | | | | [address] | | | | + + + + + + + + | Specimen | + + | | + + + +---------+ + + | Performing | Address | City/State/Zipcode | Phone Number | | Organization | | | | + +---------+ + + | EXTERNAL LAB | | | | + +---------+ + + External Lab: CBC (07/24/2018 5:24 AM PDT) + + +---- + + + | Component | Value | Ref Range | Performed | Pathologist | | | | | At | Signature | + + +---- + + + | WBC | 19.70 (H) | 3.8 0 - 11.00 | EXTERNAL | | | | | K/u L | LAB | | + + +---- + + + | Non- | 4.58 | 3.7 0 - 5.10 | EXTERNAL | | | Red Blood | | M/u L | LAB | | | Cells | | | | | | Counted | | | | | + + +---- + + + | Hemoglobin | 9.6 (L) | 11. 3 - 15.5 | EXTERNAL | | | | | g/d L | LAB | | + + +---- + + + | Hematocrit, | 32.1 (L) | 34. 0 - 46.0 % | EXTERNAL | | | POC | | | LAB | | + + +---- + + + | MCV | 70.1 (L) | 80. 0 - 100.0 fl | EXTERNAL | | | | | | LAB | | + + +---- + + + | MCH | 21.0 (L) | 27. 0 - 34.0 pg | EXTERNAL | | | | | | LAB | | + + +---- + + + | MCHC | 29.9 (L) | 32. 0 - 35.5 | EXTERNAL | | | | | g/d L | LAB | | + + +---- + + + | RDW-CV | 70.4 (H) | 37 - 53 fl | EXTERNAL | | | | | | LAB | | + + +---- + + + | Platelet | 184 | 150 - 400 K/uL | EXTERNAL | | | Count | | | LAB | | | Plasma | | | | | + + +---- + + + | MPV | 9.7 | fl | EXTERNAL | | | | | | LAB | | + + +---- + + + | Differentia | MANUAL | | EXTERNAL | | | l Type | | | LAB | | + + +---- + + + | Nucleated | 1 (H) | /10 0WBC | EXTERNAL | | | Red Blood | | | LAB | | | Cells | | | | | + + +---- + + + | Segmented | 81 | % | EXTERNAL | | | Neutrophils | | | LAB | | | Manual | | | | | + + +---- + + + | % Bands | 4 | % | EXTERNAL | | | | | | LAB | | + + +---- + + + | % | 1 | % | EXTERNAL | | | Myelocytes | | | LAB | | + + +---- + + + | Lymphocytes | 7 | % | EXTERNAL | | | Manual | | | LAB | | + + +---- + + + | Monocytes | 7 | % | EXTERNAL | | | Manual | | | LAB | | + + +---- + + + | Absolute | 15.95 (H) | 1.9 0 - 7.40 | EXTERNAL | | | Neutrophils | | K/u L | LAB | | + + +---- + + + | Bands | 0.79 (H) | 0.0 0 - 0.20 | EXTERNAL | | | Manual | | K/u L | LAB | | + + +---- + + + | Absolute | 0.20 (H) | K/u L | EXTERNAL | | | Myelocytes | | | LAB | | + + +---- + + + | Absolute | 1.38 | 1.0 0 - 3.90 | EXTERNAL | | | Lymphocytes | | K/u L | LAB | | + + +---- + + + | Absolute | 1.38 (H) | 0.0 0 - 0.80 | EXTERNAL | | | Monocytes | | K/u L | LAB | | + + +---- + + + | Platelet | ADEQUATE | | EXTERNAL | | | Estimate | | | LAB | | + + +---- + + + | RBC | NORMAL PLT MORPHComment: | | EXTERNAL | | | Morphology | | | LAB | | | | 3+ANISO3+POIK1+MICRO1+MA | | | | | | CROTesting performed at | | | | | | [facility], [address] [facility] [address] | | | | | | [place], [place] | | | | | | [address] | | | | | |MICRO | | | | | |1+ | | | | | |MACRO | | | | | |Testing performed at [facility], [address] [place] [address] | | | | | | | | | | + + +---- + + + + + | Specimen | + + | Blood specimen | | (specimen) | + + + +---------+ + + | Performing | Address | City/State/Zipcode | Phone Number | | Organization | | | | + +---------+ + + | EXTERNAL LAB | | | | + +---------+ + + POC Glucose (07/24/2018 5:24 AM PDT) + + + + + + | Component | Value | Ref Range | Performed | Pathologist | | | | | At | Signature | + + + + + + | Glucose, | 205 (H)Comment: Testing | 65 - 99 mg/dL | EXTERNAL | | | Fingerstick | performed at [facility];[address] | | LAB | | | | [address];[place] | | | | | | [address] | | | | + + + + + + + + | Specimen | + + | | + + + +---------+ + + | Performing | Address | City/State/Zipcode | Phone Number | | Organization | | | | + +---------+ + + | EXTERNAL LAB | | | | + +---------+ + + Comprehensive Metabolic Panel (07/24/2018 5:24 AM PDT) + + + + + + | Component | Value | Ref Range | Performed | Pathologist | | | | | At | Signature | + + + + + + | Na | 137 | 135 - 145 | EXTERNAL | | | | | mmol/L | LAB | | + + + + + + | K | 4.4 | 3.5 - 4.9 | EXTERNAL | | | | | mmol/L | LAB | | + + + + + + | Cl | 107 | 99 - 109 mmol/L | EXTERNAL | | | | | | LAB | | + + + + + + | CO2 | 22 (L) | 23 - 32 mmol/L | EXTERNAL | | | | | | LAB | | + + + + + + | Anion Gap | 12 | 5 - 20 mmol/L | EXTERNAL | | | | | | LAB | | + + + + + + | Glucose, | 207 (H) | 65 - 99 mg/dL | EXTERNAL | | | Fasting | | | LAB | | + + + + + + | BUN | 26 (H) | 8 - 25 mg/dL | EXTERNAL | | | | | | LAB | | + + + + + + | Creatinine | 2.0 (H) | 0.50 - 1.00 | EXTERNAL | | | | | mg/dL | LAB | | + + + + + + | BUN/Creatin | 13 | | EXTERNAL | | | ine Ratio | | | LAB | | + + + + + + | Calcium | 8.6 | 8.5 - 10.5 | EXTERNAL | | | | | mg/dL | LAB | | + + + + + + | Protein, | 7.2 | 6.3 - 8.2 g/dL | EXTERNAL | | | Total | | | LAB | | + + + + + + | Albumin | 2.5 (L) | 3.6 - 5.0 g/dL | EXTERNAL | | | | | | LAB | | + + + + + + | Globulin | 4.7 | 1.3 - 4.9 g/dL | EXTERNAL | | | | | | LAB | | + + + + + + | A/G Ratio | 0.5 (L) | 1.0 - 2.4 | EXTERNAL | | | | | | LAB | | + + + + + + | Bilirubin | 0.3 | 0.1 - 1.5 mg/dL | EXTERNAL | | | Total | | | LAB | | + + + + + + | ALP, | 75 | 35 - 115 U/L | EXTERNAL | | | External | | | LAB | | + + + + + + | AST | 18 | 10 - 45 U/L | EXTERNAL | | | | | | LAB | | + + + + + + | ALT | 17 | 10 - 65 U/L | EXTERNAL | | | | | | LAB | | + + + + + + | Estimated | 26 (L)Comment: GFR <60: | mL/min/1.73m2 | EXTERNAL | | | GFR | CHRONIC KIDNEY DISEASE, | | LAB | | | | IF FOUND OVER A 3 MONTH | | | | | | PERIOD.GFR <15: KIDNEY | | | | | | FAILURE.FOR | | | | | | AMERICANS, MULTIPLY THE | | | | | | CALCULATED GFR BY | | | | | | 1.210.This eGFR is | | | | | | calculated using the | | | | | | MDRD IDAR traceable | | | | | | equation.Testing | | | | | | performed at [facility], [address] | | | | | | [facility], | | | | | | [place] [address] | | | | + + + + + + + + | Specimen | + + | Blood specimen | | (specimen) | + + + +---------+ + + | Performing | Address | City/State/Zipcode | Phone Number | | Organization | | | | + +---------+ + + | EXTERNAL LAB | | | | + +---------+ + + POC Glucose (07/23/2018 9:16 PM PDT) + + + + + + | Component | Value | Ref Range | Performed | Pathologist | | | | | At | Signature | + + + + + + | Glucose, | 383 (H)Comment: Testing | 65 - 99 mg/dL | EXTERNAL | | | Fingerstick | performed at [facility];[address] | | LAB | | | | [address];[place], [place] | | | | | | [address] | | | | + + + + + + + + | Specimen | + + | | + + + +---------+ + + | Performing | Address | City/State/Zipcode | Phone Number | | Organization | | | | + +---------+ + + | EXTERNAL LAB | | | | + +---------+ + + POC Glucose (07/23/2018 4:10 PM PDT) + + + + + + | Component | Value | Ref Range | Performed | Pathologist | | | | | At | Signature | + + + + + + | Glucose, | 217 (H)Comment: Testing | 65 - 99 mg/dL | EXTERNAL | | | Fingerstick | performed at [facility];[address] | | LAB | | | | [address];[place] | | | | | | [address] | | | | + + + + + + + + | Specimen | + + | | + + + +---------+ + + | Performing | Address | City/State/Zipcode | Phone Number | | Organization | | | | + +---------+ + + | EXTERNAL LAB | | | | + +---------+ + + POC Glucose (07/23/2018 3:10 PM PDT) + + + + + + | Component | Value | Ref Range | Performed | Pathologist | | | | | At | Signature | + + + + + + | Glucose, | 220 (H)Comment: Testing | 65 - 99 mg/dL | EXTERNAL | | | Fingerstick | performed at [facility];[address] | | LAB | | | | [address];[place], [place] | | | | | | [address] | | | | + + + + + + + + | Specimen | + + | | + + + +---------+ + + | Performing | Address | City/State/Zipcode | Phone Number | | Organization | | | | + +---------+ + + | EXTERNAL LAB | | | | + +---------+ + + Tissue Request For Pathology (07/23/2018 3:00 PM PDT) + + | Specimen | + + | Soft tissue sample | | (specimen) | + + + + + | Narrative | Performed At | + + + | SPECIMEN(S): A UTERUS, CERVIX, RIGHT TUBE AND BILAT OVARIES | EXTERNAL LAB | | SPECIMEN SOURCE: A. UTERUS, CERVIX, RIGHT TUBE AND BILAT OVARIES | | | CLINICAL HISTORY: Bleeding. FINAL PATHOLOGIC DIAGNOSIS: Uterus (250 | | | grams) , bilateral ovaries and right fallopian tube: - | | | Cervix - Negative for TIARRA and glandular atypia - | | | Endometrium - Benign weakly proliferative endometrium without | | | hyperplasia, polyp or atypia - Myometrium - | | | - Leiomyomas without atypia measuring up to 4.2 cm in diameter | | | - Extensive adenomyosis - Serosa - No | | | pathologic abnormality - Right fallopian tube- No | | | pathologic abnormality - Ovaries - No pathologic abnormality | | | MICROSCOPIC EXAMINATION: Histologic sections of all submitted blocks | | | are examined by light microscopy. These findings, together with the | | | gross examination, support the pathologic diagnosis. GROSS | | | DESCRIPTION: The specimen is received in formalin and labeled | | | "uterus, cervix, bilateral ovaries and right fallopian tube" is | | | 250-gram, 12.7 x 8.1 x 6.5 cm uterus including a 2.8 cm diameter | | | cervix with a 0.6 cm slit-like os. Attached to the uterus is a | | | 7-gram, 3.4 x 2.9 x 1.8 cm left ovary. Also attached is a 7-gram, | | | 3.2 x 2.8 x 1.7 cm right ovary with a 7.7 cm in length by 0.9 cm | | | diameter fimbriated right fallopian tube. The posterior cervix | | | includes a 3.1 x 0.8 x 0.4 cm portion of sigala-white vaginal cuff. In | | | the anterior fundus there is a 4.2 x 2.8 x 2.6 cm sigala-white whorled | | | and well-circumscribed submucosal nodule. Throughout the remainder | | | of the anterior corpus there are multiple sigala-white whorled and | | | well-circumscribed intramural nodules ranging from 0.3 cm up to 1.4 x | | | 1.2 x 1.1 cm. Also in the anterior fundus is a 1.9 x 1.6 x 1.3 cm | | | sigala-white ill-defined subserosal nodule. In the posterior corpus | | | there are four sigala-white firm nodules ranging from 0.2 to 1.2 cm in | | | greatest dimension. Throughout the anterior and posterior corpus | | | there are rare cystic spaces ranging from 0.1 to 0.3 cm in greatest | | | dimension. The myometrium is indurated and heavily trabeculated. | | | The endometrium is sigala-red and smooth with a 0.1 cm thickness. | | | Both ovaries have a sigala-white and convoluted ovarian surface with a | | | variegated pale sigala to sigala-white ovarian stroma. The right fallopian | | | tube has a violaceous and smooth serosal surface with a stellate | | | lumen. Representatively submitted in: (A1) Anterior and | | | posterior corpus with indurated and cystic areas (A3) Anterior | | | fundic nodule (A4-A5) Additional anterior nodules (A6) Posterior | | | nodule (A7) Left ovary (A8) Right adnexa am:BES:ljb | | | PERFORMING LABORATORY: The technical component was performed by | | | [email or web address], [address] [place] [id number] (Medical | | | Director: Abigail Tinoco MD; IA# [id number]). Professional | | | [email or web address] | | | [address] [address] (Medical | | | Director: Nathan Sahu M.D.; LEILA#: [id number]). Diagnostician: | | | Nathan Sahu MD Pathologist Electronically Signed 07/24/2018 | | + + + + +---------+ + + | Performing | Address | City/State/Zipcode | Phone Number | | Organization | | | | + +---------+ + + | EXTERNAL LAB | | | | + +---------+ + + ECG 12 lead (07/23/2018 10:16 AM PDT) + + + + + + | Component | Value | Ref Range | Performed | Pathologist | | | | | At | Signature | + + + + + + | DIAGNOSIS: | Normal sinus rhythmLeft | | EXTERNAL | | | | axis deviationT wave | | LAB | | | | abnormality, consider | | | | | | lateral ischemiaAbnormal | | | | | | ECG Confirmed by | | | | | | Juanjo Giang MD | | | | | | ([id number]) on 07/23/2018 | | | | | | 8:46:22 PM | | | | + + + + + + + + | Specimen | + + | | + + + + + | Narrative | Performed At | + + + | Historically converted procedure from [facility] | EXTERNAL LAB | + + + + +---------+ + + | Performing | Address | City/State/Zipcode | Phone Number | | Organization | | | | + +---------+ + + | EXTERNAL LAB | | | | + +---------+ + + POC Glucose (07/23/2018 10:04 AM PDT) + + + + + + | Component | Value | Ref Range | Performed | Pathologist | | | | | At | Signature | + + + + + + | Glucose, | 173 (H)Comment: Testing | 65 - 99 mg/dL | EXTERNAL | | | Fingerstick | performed at [facility];[address] | | LAB | | | | [address];[place], [place] | | | | | | [address] | | | | + + + + + + + + | Specimen | + + | | + + + +---------+ + + | Performing | Address | City/State/Zipcode | Phone Number | | Organization | | | | + +---------+ + + | EXTERNAL LAB | | | | + +---------+ + + External Lab: PADMINI (07/23/2018 10:00 AM PDT) + + + + + + | Component | Value | Ref Range | Performed | Pathologist | | | | | At | Signature | + + + + + + | WBC | 13.44 (H) | 3.80 - 11.00 | EXTERNAL | | | | | K/uL | LAB | | + + + + + + | Non- | 5.32 (H) | 3.70 - 5.10 | EXTERNAL | | | Red Blood | | M/uL | LAB | | | Cells | | | | | | Counted | | | | | + + + + + + | Hemoglobin | 11.4 | 11.3 - 15.5 | EXTERNAL | | | | | g/dL | LAB | | + + + + + + | Hematocrit, | 37.6 | 34.0 - 46.0 % | EXTERNAL | | | POC | | | LAB | | + + + + + + | MCV | 70.7 (L) | 80.0 - 100.0 fl | EXTERNAL | | | | | | LAB | | + + + + + + | MCH | 21.4 (L) | 27.0 - 34.0 pg | EXTERNAL | | | | | | LAB | | + + + + + + | MCHC | 30.2 (L) | 32.0 - 35.5 | EXTERNAL | | | | | g/dL | LAB | | + + + + + + | RDW-CV | 70.4 (H) | 37 - 53 fl | EXTERNAL | | | | | | LAB | | + + + + + + | Platelet | 210 | 150 - 400 K/uL | EXTERNAL | | | Count | | | LAB | | | Plasma | | | | | + + + + + + | MPV | 9.1 | fl | EXTERNAL | | | | | | LAB | | + + + + + + | Differentia | AUTOMATED | | EXTERNAL | | | l Type | | | LAB | | + + + + + + | % Segmented | 70.68 | % | EXTERNAL | | | | | | LAB | | | Neutrophils | | | | | + + + + + + | % | 17.79 | % | EXTERNAL | | | Lymphocytes | | | LAB | | + + + + + + | % Monocytes | 8.60 | % | EXTERNAL | | | | | | LAB | | + + + + + + | % | 1.86 | % | EXTERNAL | | | Eosinophils | | | LAB | | + + + + + + | % Basophils | 1.07 | % | EXTERNAL | | | | | | LAB | | + + + + + + | Absolute | 9.50 (H) | 1.90 - 7.40 | EXTERNAL | | | Segmented | | K/uL | LAB | | | Neutrophils | | | | | + + + + + + | Absolute | 2.39 | 1.00 - 3.90 | EXTERNAL | | | Lymphocytes | | K/uL | LAB | | + + + + + + | Absolute | 1.16 (H) | 0.00 - 0.80 | EXTERNAL | | | Monocytes | | K/uL | LAB | | + + + + + + | Absolute | 0.25 | 0.00 - 0.50 | EXTERNAL | | | Eosinophils | | K/uL | LAB | | + + + + + + | Absolute | 0.14 (H) | 0.00 - 0.10 | EXTERNAL | | | Basophils | | K/uL | LAB | | + + + + + + | RBC | 3+ | | EXTERNAL | | | Morphology | Comment: | | LAB | | | | ANISO | | | | | | 2+ | | | | | | HYPO | | | | | | 2+ | | | | | | MICRO | | | | | | 1+ | | | | | | POIK | | | | | | 1+ | | | | | | POLY | | | | | | | | | | + + + + + + | Platelet | ADEQUATEComment: Testing | | EXTERNAL | | | Estimate | performed at [facility];[id number] | | LAB | | | | [address];[place] | | | | | | [id number] | | | | + + + + + + + + | Specimen | + + | Blood specimen | | (specimen) | + + + +---------+ + + | Performing | Address | City/State/Zipcode | Phone Number | | Organization | | | | + +---------+ + + | EXTERNAL LAB | | | | + +---------+ + + Comprehensive Metabolic Panel (07/23/2018 10:00 AM PDT) + + + + + + | Component | Value | Ref Range | Performed | Pathologist | | | | | At | Signature | + + + + + + | Na | 142 | 135 - 145 | EXTERNAL | | | | | mmol/L | LAB | | + + + + + + | K | 3.8 | 3.5 - 4.9 | EXTERNAL | | | | | mmol/L | LAB | | + + + + + + | Cl | 112 (H) | 99 - 109 mmol/L | EXTERNAL | | | | | | LAB | | + + + + + + | CO2 | 20 (L) | 23 - 32 mmol/L | EXTERNAL | | | | | | LAB | | + + + + + + | Anion Gap | 14 | 5 - 20 mmol/L | EXTERNAL | | | | | | LAB | | + + + + + + | Glucose, | 177 (H) | 65 - 99 mg/dL | EXTERNAL | | | Fasting | | | LAB | | + + + + + + | BUN | 23 | 8 - 25 mg/dL | EXTERNAL | | | | | | LAB | | + + + + + + | Creatinine | 1.81 (H) | 0.50 - 1.00 | EXTERNAL | | | | | mg/dL | LAB | | + + + + + + | BUN/Creatin | 13 | | EXTERNAL | | | ine Ratio | | | LAB | | + + + + + + | Calcium | 8.7 | 8.5 - 10.5 | EXTERNAL | | | | | mg/dL | LAB | | + + + + + + | Protein, | 7.7 | 6.3 - 8.2 g/dL | EXTERNAL | | | Total | | | LAB | | + + + + + + | Albumin | 4.3 | 3.6 - 5.0 g/dL | EXTERNAL | | | | | | LAB | | + + + + + + | Globulin | 3.4 | 1.3 - 4.9 g/dL | EXTERNAL | | | | | | LAB | | + + + + + + | A/G Ratio | 1.3 | 1.0 - 2.4 | EXTERNAL | | | | | | LAB | | + + + + + + | Bilirubin | 1.3 | 0.1 - 1.5 mg/dL | EXTERNAL | | | Total | | | LAB | | + + + + + + | ALP, | 76 | 35 - 115 U/L | EXTERNAL | | | External | | | LAB | | + + + + + + | AST | 17 | 10 - 45 U/L | EXTERNAL | | | | | | LAB | | + + + + + + | ALT | 12 | 10 - 65 U/L | EXTERNAL | | | | | | LAB | | + + + + + + | Estimated | 29 (L)Comment: GFR <60: | mL/min/1.73m2 | EXTERNAL | | | GFR | CHRONIC KIDNEY DISEASE, | | LAB | | | | IF FOUND OVER A 3 MONTH | | | | | | PERIOD.GFR <15: KIDNEY | | | | | | FAILURE.FOR | | | | | | AMERICANS, MULTIPLY THE | | | | | | CALCULATED GFR BY | | | | | | 1.210.This eGFR is | | | | | | calculated using the | | | | | | MDRD IDMS traceable | | | | | | equation.Testing | | | | | | performed at [facility];[address] | | | | | | [facility];[place], [place] | | | | | | [id number] | | | | + + + [...] + | Diagnosis | + + | Menorrhagia with irregular cycle Excessive or frequent menstruation | + + | Fibroid Leiomyoma of uterus, unspecified | + + documented in this encounter
--- OUTSIDE RECORDS SUMMARY | ~2019-11-29 | XMS | Encounter Summary ---
Demographics + + + | Address | [address] | | | [place] [address] | + + + | Home Phone | | + + + | Preferred Language | Unknown | + + + | Marital Status | | + + + | Lutheran Affiliation | Unknown | + + + | Race | Unknown | + + + | Ethnic Group | Unknown | + + + Author + + + | Author | Merged With [facility] | | | and [place] | + + + | Organization | Merged With [facility] | | | [...] Team Providers + +------+ + | Care [employer] Superintendent Name | Role | Phone | + [...] Description | +--------+---------+ + + + | 11/28/ | Office | [facility] | Marissa Rouse, | Coronary artery | | 2017 | Visit | CARDIOLOGY [address] [place] | disease involving | | | | [place], | [place], | three affiliated coronary | | | | [place] [address] | [place] [address] | artery of three affiliated | | | | [phone] | [phone] | heart without angina | | | | | | pectoris (Primary | | | | | | Dx) | +--------+---------+ + + + Social History [...] + + + | Blood Pressure | 138/80 | 11/28/2016 4:05 PM | R | | | | PDT | | + + + + + | Pulse | 76 | 11/28/2016 4:05 PM | | | | | PDT | | + + + + + | Temperature | - | - | | + + + + + | Respiratory Rate | 16 | 11/28/2016 4:05 PM | | | | | PDT | | + + + + + | Oxygen Saturation | - | - | | + + + + + | Inhaled Oxygen | - | - | | | Concentration | | | | + + + + + | Weight | 99.3 kg (219 lb) | 11/28/2016 4:05 PM | | | | | PDT | | + + + + + | Height | 157.5 cm (5' 2") | 11/28/2016 4:05 PM | | | | | PDT | | + + + + + | Body Mass Index | 40.06 | 11/28/2016 4:05 PM | | | | | PDT | | + + + + + documented in this encounter Patient Instructions Patient Instructions Yasmeen Galan RN - 11/28/2016 4:00 PM PDTStop Effient. Follow up appointment: 6 months Provider: Marissa Rouse MD Date: Check-In Time: documented in this encounter Progress Notes Marissa Rouse MD - 11/28/2016 4:00 PM PDTFormatting of this note might be different f rom the original. PATIENT NAME: Jessie Casarez : 1965: AGE: 51 y.o. PRIMARY CARE: Kyle Richey DO OUTPATIENT FOLLOW UP VISIT Date of Service: 11/28/2016 HISTORY OF PRESENT ILLNESS: Jessie Casarez is a 51 y.o. female with a history of coronary artery disease involving sarah danielle coronary artery of three affiliated heart without angina pectoris post non-STEMI post PTCA and carolyn nt of RCA by Dr. Bell on 11/23/15, type II diabetes, essential hypertension, mixed hyperlipi demia, obesity, stage III chronic kidney disease, noncompliant, suspecting obstructive sleep apnea. She is being seen today for follow up coronary artery disease. She was last seen 07/11/2016 at which time patient was to continue with her current medical r egimen. Since that time, patient reports one episode of chest pain and had to take two table ts of nitroglycerin. Patient is physically active. Patient denies breathlessness. There is no palpitations, dizziness or lightheadedness. There is no ankle or leg swelling. Patient ca n sleep on one pillow at night without difficulty breathing. MEDICAL, SURGICAL, AND PERSONAL HISTORY Past Medical, Surgical, Family, and Social History are reviewed in EPIC. CURRENT PROBLEMS Patient Active Problem List Diagnosis Extrapulmonary TB (tuberculosis) RA (rheumatoid arthritis) Pleural effusion Coronary artery disease involving three affiliated coronary artery of three affiliated heart without angina pectoris CKD (chronic kidney [...] of insulin Anemia of chronic renal failure CURRENT MEDICATIONS Current Outpatient Prescriptions Medication Sig Dispense Refill adalimumab (HUMIRA PEN) 40 mg/0.8 mL injection (pen) Inject 0.8 mLs under the skin ever y 7 days. aspirin 81 mg chewable tablet Take 81 mg by mouth Daily. atorvaSTATin (LIPITOR) 80 MG tablet Take 1 tablet by mouth nightly. 90 tablet 3 BD PEN NEEDLE MARELY U/F 32G X 4 MM MISC inject once daily 0 calcitRIOL (ROCALTROL) 0.5 MCG capsule Take 1 capsule by mouth Daily. 90 capsule 4 insulin glargine (LANTUS) 100 units/mL injection (vial) Inject under the skin nightly. isosorbide mononitrate (IMDUR) 30 mg ER tablet Take 30 mg by mouth Daily. Take one-half tablet by mouth every day lisinopril (PRINIVIL, ZESTRIL) 10 mg tablet Take 1 tablet by mouth Daily. 90 tablet 4 metoprolol tartrate (LOPRESSOR) 50 mg tablet Take [...] by mouth every morning (before breakfast ). ONETOUCH VERIO strip 0 sulfaSALAzine (AZULFIDINE) 500 MG EC tablet Take 1,000 mg by mouth 2 times daily. tiotropium (SPIRIVA) 18 mcg inhalation capsule Inhale 1 capsule into the lungs Daily. ( Patient taking differently: Inhale 18 mcg into the lungs as needed.) 90 capsule 3 No current facility-administered medications for this visit. ALLERGIES Allergies Allergen Reactions Albuterol Other (See Comments) Gives her a headache ROS Review of Systems Constitutional: Positive for malaise/fatigue. Negative for chills, diaphoresis, fever and w eight loss. HENT: Negative for congestion, hearing loss, nosebleeds and tinnitus. Dental Problems = No Eyes: Negative for blurred vision and double vision. Respiratory: Negative for shortness of breath. Cardiovascular: Positive for chest pain (once) and leg swelling. Negative for palpitations. Gastrointestinal: Negative for blood in stool, constipation, diarrhea, nausea and vomiting. Genitourinary: Negative for dysuria, frequency, hematuria and urgency. Musculoskeletal: Positive for joint pain. Negative for back pain, falls, myalgias and neck pain. Gait Problems = No Skin: Negative for itching and rash. Neurological: Negative for dizziness, tingling, tremors, speech change, seizures, loss of c onsciousness and weakness. Lightheaded = No Endo/Heme/Allergies: Bruises/bleeds easily (bruise). Psychiatric/Behavioral: Negative for memory loss. The patient is not nervous/anxious and do es not have insomnia. OBJECTIVE: PHYSICAL EXAM BP 138/80 Comment: R | Pulse 76 | Resp 16 | Ht 1.575 m (5' 2") | Wt 99.3 kg (219 lb) | BMI 40.06 kg/m Physical Exam Constitutional: She appears well-developed [...] RESULTS reviewed during visit today primarily from [facility]: LIPID Lab Results Component Value Date CHOL 257 (H) 11/20/2015 TRIG 304 (H) 11/20/2015 HDL 50 11/20/2015 LDL 146 (H) 11/20/2015 CHOLHDL 5.1 11/20/2015 LDLEX 109 (A) 10/28/2016 HDLEX 48.5 10/28/2016 TRIGEX 307 (A) 10/28/2016 CHOLEX 219 (A) 10/28/2016 CHEMISTRY Lab Results Component Value Date GLU 144 (H) 03/25/2016 GLUEX 145 (A) 10/28/2016 NA 138 03/25/2016 NAEX 137 10/28/2016 K 4.7 03/25/2016 KEX 4.0 10/28/2016 CL 111 (H) 03/25/2016 CLEX 105 10/28/2016 CO2 20 (L) 03/25/2016 CO2EX 18 (A) 10/28/2016 CALCIUM 8.4 03/25/2016 ALKPHOS 69 11/20/2015 AST 46 (H) 11/20/2015 ASTEX 16 10/28/2016 ALT 40 11/20/2015 ALTEX 18 10/28/2016 BILITOT 0.6 11/20/2015 CREA 1.85 (H) 03/25/2016 BUN 29 (H) 03/25/2016 EGFREX 34 (A) 10/28/2016 CREEX 1.59 (A) 10/28/2016 HEMATOLOGY Lab Results Component Value Date WBC 14.6 (H) 11/24/2015 WBCEX 10.9 10/28/2016 HGB 7.7 (L) 11/24/2015 HGBEX 13 10/28/2016 HCT 26.7 (L) 11/24/2015 HCTEX 40.1 10/28/2016 PLT 258 11/24/2015 PLTEX 316 10/28/2016 I reviewed records from Kyle Richey DO for office visit on 07/29/2016. Above data and testing is reviewed this visit; testing below is historical data unless othe rwise specified. ASSESSMENT: 1. Coronary artery disease involving three affiliated coronary artery of three affiliated heart without angina pectoris/non-STEMI: A. Post non-STEMI. Left heart cath on 11/21/12 showed 95% stenosis of the LCx, 20-30% stenosis of the proximal RCA. Status post PTCA and stents x 2 of the L Cx.Since that time, she saw a machine setter and repairer for couple times and loss of follow-up. B. Echocardiogram on 11/20/15 showed Mild biatrial dilatation. Maria l left ventricular size, wall thickness and motion. Preserved left ventricular systolic func tion. LVEF is 60%. Normal valvular structure. Normal right-sided pressure. Normal IVC with n ormal respiratory collapse. C. She started having a chest pain on 11/17/15 while she was working at the [employer] She described it as a chest pressure 11/18 that radiated across the chest wa ll and was associated some shortness of breath. No palpitation, dizziness or lightheadedne ss. No sweating. She waited until 11/19/15 when she had recurrent bad chest pain that too k her to the ED of [facility] in [place]. She was found to have blood sugar of almost 1000 and troponin of 0.5. She was transferred to [facility]. D. Left heart cath on 11/21/15 showed [...] by gated SPECT is 64 %. G. [facility] 03/25/16, shows non-critical coronary artery disease; 50-70% [...] Risk factor modification and Medical management. H. today, patient reports one episode of chest pain and had to grzegorz e two tablets of nitroglycerin. Patient is physically active. Patient denies breathlessness . There is no palpitations, dizziness or lightheadedness. There is no ankle or leg swelling. Patient can sleep on one pillow at night without difficulty breathing. She is in a class II of [place] [employer] functional class.There is no signs or symptoms of overt congestive heart failure. There is no fluid retention on physical examina tion. She is on a combination of aspirin, metoprolol, Effient, isosorbide mononitrate and atorva statin. 2. Essential hypertension with goal blood pressure less than 130/80: A. Today's blood pressure is well-controlled. 3. Type II diabetes/noncompliant with medication A.She is known to have history of type II diabetes. She was presc ribed on metformin 500 mg twice a day starting in July,.Patient has not been seen by endocrinology yet, but she has been monitoring blood sugars and has met with diabetic educa que. B. She is now on insulin. 4. Rheumatoid arthritis A. She has a history of rheumatoid arthritis and received Humira on ce weekly by Dr. Castillo in [place]. 5.Acute kidney injury on top of the stage III chronic kidney disease A. She also seen a nurse researcher at [facility] but recently los t follow-up. B. Ultrasound retroperitoneal 07/01/2016 shows abnormally echogenic kidneys, compatible with medical renal disease. Kidneys are slightly decreased in size since 2011, no evidence of obstruction. 6. Obesity and Inactivity 7. Hyperlipidemia, mixed: A. She is on Lipitor 80 mg nightly. 8. Suspecting obstructive sleep apnea A. Patient has 4/8 on stop bag questionnaire. PLAN: 1. Stop Effient because he has been more than a year since her last PCI with stent. 2. I recommend a therapeutic lifestyle change including walking 30 minutes a day, choosing healthy choices of diet , including DASH diet and weight reduction. 3. Follow-up in 6 months or sooner with concerns. I Rosy Landis am acting as a scribe on behalf of, and in the presence of Marissa hagen MD. I have reviewed and edited this note. Rosy Landis, Mother Baby Rn 11/28/2016 I, Marissa Rouse MD, personally performed the services described in this documentation, as scribed in my presence and it is both accurate and complete. Rosy Landis, Med Ass t 11/28/2016 16:13 Electronically signed by: Marissa Rouse MD [facility] 11/28/2016 Portions of this chart may have been created with [employer] voice recognition software. Occasi onal wrong-word or [...] + + | Coronary artery disease involving three affiliated coronary artery of three affiliated heart without | | angina pectoris - Primary | + + documented in this encounter
--- OUTSIDE RECORDS SUMMARY | ~2019-11-29 | XMS | Encounter Summary ---
Demographics + + + | Address | [address] | | | [place] [address] | + + + | Home Phone | | + + + | Preferred Language | Unknown | + + + | Marital Status | | + + + | Episcopal Affiliation | Unknown | + + + [...] Team Providers + +------+ + | Care Barbering Teacher Name | Role | Phone | + +------+ + | Kyle Richey DO | PCP | | + +------+ + Encounter Details +--------+ + + + + | Date | Type | Department | Care Team | Description | +--------+ + + + + | 07/15/ | Orders Only | [facility] | Riaz Retana | Chronic kidney | | 2017 | | NEPHROLOGY [address] | M, DO [address] | disease, stage III | | | | [address] | [address] [place] | (moderate) (Primary | | | | [place], [place] | [place] [address] | Dx) | | | | [address] | [phone] | | | | | [phone] | | | +--------+ + + + [...] documented as of this encounter Progress Notes Joi Rodriguez RN - 07/15/2016 1:11 PM PSTPatient unable to complete 24 hr urine collec tion d/t work schedule (works 6 days per week.) Dr. Retana notified, okay with completing spot protein/creatinine ratio/ 1 :12 PM PSTdocumented in this encounter Plan of Treatment + +------+--------+ + + | Name | Type | Priori | Associated Diagnoses | Order Schedule | | | | ty | | | + +------+--------+ + + | Protein/Creatinine | Lab | Routin | Chronic kidney | 1 Occurrences | | Ratio, Urine | | e | disease, stage III | starting 07/15/2016 | | | | | (moderate) | until 07/15/2017 | + +------+--------+ + + documented as of this encounter Visit Diagnoses + + | Diagnosis | + + | Chronic kidney disease, stage III (moderate) (HCC) - Primary Chronic kidney disease, | | Stage III (moderate) | + + documented in this encounter"
--- OUTSIDE RECORDS SUMMARY | ~2019-11-29 | XMS | Encounter Summary ---
Demographics + + + | Address | [address] | | | [place] [address] | + + + | Home Phone | | + + + | Preferred Language | Unknown | + + + | Marital Status | | + + + | Taoism Affiliation | Unknown | + + + | Race | Unknown | + + + | Ethnic Group | Unknown | + + + Author + + + | Author | [facility] | | | and [place] | + + + | Organization | [facility] | | | [...] Team Providers + +------+ + | Care Apple Packing Header Name | Role | Phone | + [...] Description | +--------+---------+ + + + | 03/12/ | Office | [facility] | [place], | Coronary artery | | 2015 | Visit | CARDIOLOGY [address] | LUIZ Chun [address] | disease involving | | | | [place], | [place], | ven[place] coronary | | | | [place] [address] | [place] [address] | artery of venetie ira | | | | [phone] | [phone] | heart without angina | | | | | | pectoris (Primary | | | | | | Dx); Type 2 diabetes | | | | | | mellitus without | | | | | | complication, | | | | | | without long-term | | | | | | current use of | | | | | | insulin (HCC) | +--------+---------+ + + + Social [...] + | Blood Pressure | 140/80 | 03/12/2016 2:53 PM | | | | | PDT | | + + + + + | Pulse | 66 | 03/12/2016 2:53 PM | | | | | PDT | | + + + + + | Temperature | - | - | | + + + + + | Respiratory Rate | 12 | 03/12/2016 2:53 PM | | | | | PDT | | + + + + + | Oxygen Saturation | - | - | | + + + + + | Inhaled Oxygen | - | - | | | Concentration | | | | + + + + + | Weight | 93.9 kg (207 lb) | 03/12/2016 2:53 PM | | | | | PDT | | + + + + + | Height | 157.5 cm (5' 2") | 03/12/2016 2:53 PM | | | | | PDT | | + + + + + | Body Mass Index | 37.86 | 03/12/2016 2:53 PM | | | | | PDT | | + + + + + documented in this encounter Patient Instructions Patient Instructions Lay Cherry ARNP - 03/12/2016 3:45 PM PDT1. Start Isosorbide mon onitrate half a tablet (15 mg) once every morning INSTRUCTIONS Jessie Casarez 1965 Procedure: Left heart catheterization Day: Date: Check-in time: 1. [facility] ([facility]day surgery). 2. Stop taking Metformin the day prior, the day of and the day after your procedure: 03/24, 03/25/16, and 03/26/16. You will resume your previous dose on 03/27/16. 3. Do not eat or drink anything after midnight prior to the procedure. 4. Take all of your regular medications including Aspirin, and Effient with a sip of water the morning of the procedure except metformin as listed above. 5. The procedure lasts approximately one hour, and you will have conscious sedation for the procedure which will help decrease pain and will make you groggy. 6. After the procedure you will remain either in recovery or same day surgery center for at least 2 hours, part of this time you may have to lie flat depending on the procedure. 7. Make sure you have a chair car driver to take you home. Your chair car driver will also need to sign you ou t, to take responsibility for you, so it can not be a taxi or transportation system, unless there is a caregiver with transportation. 8. Please call us with any questions or concerns at . If you need to cancel the procedure at the last minute, such as due to illness, and you are calling after regular office hours, call the main hospital line at and ask for nursing senior production supervisor t o let them know you are cancelling . Follow up appointment in Cardiology: 2-4 weeks Provider: LUIZ Nino Date: Check-in time: documented in this encounter Progress Notes Lay Cherry ARNP - 03/12/2016 2:47 PM PDTFormatting of this note might be different f rom the original. PATIENT NAME: Jessie Casarez : 1965: AGE: 51 y.o. PRIMARY CARE: Kyle Richey DO OUTPATIENT FOLLOW UP VISIT Date of Service: 03/12/2016 HISTORY OF PRESENT ILLNESS: Jessie Casarez is a 51 y.o. female with a history of coronary artery disease involving sarah danielle coronary artery of venetie ira heart without angina pectoris post non-STEMI post PTCA and carolyn nt of RCA by Dr. Bell on 11/23/15, type II diabetes, essential hypertension, mixed hyperlipi demia, obesity, stage III chronic kidney disease, noncompliant, suspecting obstructive sleep apnea. She is being seen today for follow up coronary artery disease and hypertension. She was last seen 02/22/2016 at which time patient was schedule for an exercise Myoview str ess test to further stratify coronary artery disease, increased atorvastatin 40 mg daily at bedtime and to utilize nitroglycerin for symptoms. She was to follow-up in 2-4 weeks. Sinc e that time, she has had some episodes of the same chest pressure but they have been slightl y less because "I have had a less stressed week". She has been trying to watch her diet clos jacque and she has an upcoming appointment with endocrinology at the beginning of April, she also went to her first diabetic education class. She has not had to use the SL NTG. She has had no side effect problems over the last 3 weeks that she has been taking higher dose of s tatins. She also will be seeing sleep specialist in 1 week. MEDICAL, SURGICAL, AND PERSONAL HISTORY Past Medical, Surgical, Family, and Social History are reviewed in EPIC. CURRENT PROBLEMS Patient Active Problem List Diagnosis Extrapulmonary TB (tuberculosis) RA (rheumatoid arthritis) Pleural effusion Coronary artery disease involving venetie ira coronary artery of venetie ira heart without angina pectoris CKD (chronic kidney [...] 81 mg by mouth Daily. atorvaSTATin (LIPITOR) 40 mg tablet Take 1 tablet by mouth nightly. 30 tablet 5 HYDROcodone-acetaminophen (NORCO) 5-325 mg per tablet Take 1 tablet by mouth every 4 ho urs as needed for Pain. 20 tablet 0 metFORMIN (GLUCOPHAGE) 500 mg tablet Take [...] a headache ROS Review of Systems Constitutional: Negative for malaise/fatigue. Respiratory: Negative for shortness of breath. Cardiovascular: Negative for chest pain, palpitations and leg swelling. Neurological: Negative for dizziness and weakness. Lightheaded = No OBJECTIVE: PHYSICAL EXAM BP 140/80 mmHg | Pulse 66 | Resp 12 | Ht 1.575 m (5' 2") | Wt 93.895 kg (207 lb) | BMI 37.8 5 kg/m2 Physical Exam Constitutional: She appears [...] not e xhibit a depressed mood. ECG: I personally independently reviewed ECG tracing during this visit (interpreted and sharmila led by another provider- Dr. Rouse) from 02/22/2016. LAB RESULTS reviewed during visit today primarily from [facility]: LIPID Lab Results Component Value Date [...] PLTEX 291 09/08/2014 I reviewed records from [facility] for office visit on 02/22/2016 which is summarized in the HPI. Stress Test 03/08/16, shows persantine EKG is negative, abnormal persantine sestamibi myoca rdial perfusion study with a medium-size, mainly reversible defect of a moderate severity of the entire anterior, anterolateral, inferior and inferior lateral, this suggests a medium-s ized myocardial ischemia of both left anterior descending artery and left circumflex artery, gated SPECT reveals a normal left ventricular wall thickness and motion, preserved left camila tricular systolic function, LVEF by gated SPECT is 64 %. Above data and testing is reviewed this visit; testing below is historical data unless othe rwise specified. ASSESSMENT: 1. Coronary artery disease involving venetie ira coronary artery of venetie ir[place] heart without angina pectoris/non-STEMI: A. Post non-STEMI. Left heart cath on 11/21/12 showed 95% stenosis of the LCx, 20-30% stenosis of the proximal RCA. Status post PTCA and stents x 2 of the L Cx.Since that time, she saw a post closer for couple times and loss of follow-up. B. Echocardiogram on 11/20/15 showed Mild biatrial dilatation. Maria l left ventricular size, wall thickness and motion. Preserved left ventricular systolic func tion. LVEF is 60%. Normal valvular structure. Normal right-sided pressure. Normal IVC with n ormal respiratory collapse. C. She started having a chest pain on 11/17/15 while she was working at the [employer]. She described it as a chest pressure 11/18 that radiated across the chest wa ll and was associated some shortness of breath. No palpitation, dizziness or lightheadedne ss. No sweating. She waited until 11/19/15 when she had recurrent bad chest pain that too k her to the ED of [facility] in [place]. She was found to have blood sugar of almost 1000 and troponin of 0.5. She was transferred to [facility]. D. Left heart cath on 11/21/15 showed [...] by gated SPECT is 64 %. G. Patient continues having chest heaviness and pressure and dyspnea on exertion. This wee k has been less noticeable because patient has had a less stressful week, according to satya collins. She is trying to walk a bit more. She is in class. She is in a class II of [employer] functional class.There is no signs or symptoms of overt congestive heart vinnie lure. There is no fluid retention on physical examination today but patient refers having days with edema. She is on a combination of aspirin, metoprolol , Effient and atorvastatin. 2. Essential hypertension with goal blood pressure less than 130/80: A. Blood pressure iswell-controlled 3. Type II diabetes/noncompliant with medication A. She is known to have history of type II diabetes. She was pr escribed on metformin 500 mg twice a day starting in July,. Patient has not started metformin. She is not on diet control either. She doesn't believe that diabetes is real for her. B. She is back on metformin, she has seen the diabetic endocrinolog ists and she will see endocrine in 6 weeks. 4. Rheumatoid arthritis A. She has a history of rheumatoid arthritis and received Humira on ce weekly by Dr. Castillo in [place]. 5. Acute kidney injury on top of the stage III chronic kidney disease A. She also seen a hvac refrigeration technician at [facility] but recently los t follow-up. B. EGFR is 33. 6. Obesity and Inactivity 7. Hyperlipidemia, mixed: A. She is on Lipitor, recently increased dose with plan of further increasing it 10. Suspecting obstructive sleep apnea A. Patient has 4/8 on stop bag questionnaire. Awaiting consultation on 03/2016. PLAN: 1. We will increase Lipitor 80 mg once every evening next appointment 2. Schedule patient for angiogram to further evaluate chest pressure and heaviness on exert ion, abnormal stress test and increase dyspnea on exertion and follow up in 2-4 weeks. She will follow renal protocol and hold Metformin for total of 3 days 3. Start Isosorbide mononitrate 15 mg once every day 4. She will follow up in 2-4 weeks, or sooner with concerns. Portions of this chart may have been created with [employer] voice recognition software. Occasi onal wrong-word or [...] + + | Coronary artery disease involving venetie ira coronary artery of venetie ira heart without | | angina pectoris - Primary | + + | Type 2 diabetes mellitus without complication, without long-term current use of | | insulin (HCC) | + + documented in this encounter
--- OUTSIDE RECORDS SUMMARY | ~2019-11-29 | XMS | Encounter Summary ---
Demographics + + + | Address | [address] | | | [place] [address] | + + + | Home Phone | | + + + | Preferred Language | Unknown | + + + | Marital Status | | + + + | Caodaism Affiliation | Unknown | + + + | Race | Unknown | + + + | Ethnic Group | Unknown | + + + Author + + + | Author | [facility] | | | and [place] | + + + | Organization | [facility] | | [...] Team Providers + +------+ + | Care Statistical Typist Name | Role | Phone | + +------+ + | Kyle Richey DO | PCP | | + +------+ + Reason for Visit + + + | Reason | Comments | + + + | Vaginitis | room 3. Finished 2 wks cours of Ketrish and thinks yeast infection | | | is caused by antibiotics. | + + + Encounter Details +--------+---------+ + + + | Date | Type | Department | Care Team | Description | +--------+---------+ + + + | 11/21/ | Office | [facility] | [place], | Vaginal yeast | | 2019 | Visit | CARE [address] | Ras Bryan MD | infection (Primary | | | | [place] | [address] | Dx) | | | | [address] | [place] | | | | | [phone] | [address] | | | | | | | [...] + + + | Blood Pressure | 152/72 | 11/21/2018 4:29 PM | | | | | PDT | | + + + + + | Pulse | 67 | 11/21/2018 4:29 PM | | | | | PDT | | + + + + + | Temperature | 36.9 C (98.4 F) | 11/21/2018 4:29 PM | | | | | PDT | | + + + + + | Respiratory Rate | 17 | 11/21/2018 4:29 PM | | | | | PDT | | + + + + + | Oxygen Saturation | 99% | 11/21/2018 4:29 PM | | | | | PDT | | + + + + + | Inhaled Oxygen | - | - | | | Concentration | | | | + + + + + | Weight | 85.2 kg (187 lb 13.3 | 11/21/2018 4:29 PM | | | | oz) | PDT | | + + + + + | Height | 157.5 cm (5' 2") | 11/21/2018 4:29 PM | | | | | PDT | | + + + + + | Body Mass Index | 34.35 | 11/21/2018 4:29 PM | | | | | PDT | | + + + + + documented in this encounter Patient Instructions Patient Instructions Ras Wang MD - 11/21/2018 4:30 PM PDT Yeast Infection (Cecily Vaginal Infection) You have aCandidavaginal infection. This is also known as a yeast infection. It is most often caused by a type of yeast (fungus) calledCandida.Candidaare normally found in t he vagina. But if they increase in number, this can lead to infection and cause symptoms. Symptoms of a yeast infection can include: Clumpy or thin, white discharge, which may look like cottage cheese Itching or burning Burning with urination Certain factors can make a yeast infection more likely. These can include: Taking certain medicines, such as antibiotics or control pills Diabetes Weak immune system A yeast infection is most often treated with antifungal medicine. This may be given as a va ginal cream or pills you take by mouth. Treatment may last for about 1 to 7 days. Women with severe or recurrent infections may need longer courses of treatment. Home care If you re prescribed medicine, be sure to use it as directed. Finishallof the medi cine, even if your symptoms go away.Note: Don t try to treat yourself using vbap-tsh-tiz nter products without talking to your provider first. He or she will let you know if this is a good option for you. Ask your provider what steps you can take to help reduce your risk of having a yeast inf ection in the future. Follow-up care Follow up with your healthcare provider, or as directed. When to seek medical advice Call your healthcare provider right away if: You have a fever of 100.4F (38C)or higher, or as directed by your provider. Your symptoms worsen, or they don t go away within a few days of starting treatment. You have new pain in the lower belly or pelvic region. You have side effects that bother you or a reaction to the cream or pills you re presc ribed. You or any partners you have sex with have new symptoms, suchas a rash, joint pain, or sores. Date Last Reviewed: 02/09/201719994369-4170 [employer]. [address] [place] [address]. All righ ts reserved. This information is not intended as a substitute for professional medical care. Always follow your healthcare professional's instructions. documented in this encounter Progress Notes Ras Wang MD - 11/21/2018 4:30 PM PDTFormatting of this note might be di fferent from the original. Subjective: Chief Complaint: Vaginitis (room 3. Finished 2 wks cours of Keflex and thinks yeast infecti on is caused by antibiotics. ) Jessie is a 53 y.o. female who comes in complaining of vaginal irritation. HPI this 53-year-old woman was treated with Keflex for an abscess and developed vaginal itc christina and irritation subsequent to that. She does not have a discharge. She recently had a hysterectomy. She is and monogamous with her but knows that he has other pa rtners. She would like to make sure she does not have an STD. Patient's medications, allergies, past medical, surgical, social and family histories were reviewed and updated as appropriate. ROS See above Objective: BP 152/72 | Pulse 67 | Temp 36.9 C (98.4 F) (Temporal) | Resp 17 | Ht 1.575 m (5' 2 ") | Wt 85.2 kg (187 lb 13.3 oz) | LMP 07/23/2017 (Approximate) | SpO2 99% | BMI 34.35 k g/m Physical Exam I reviewed the chart and verified the story. Symptoms are classic for yeast and a pelvic e xam is not required No results found for this or any previous visit (from the past 24 hour(s)). Assessment and Plans: 1. Vaginal yeast infection Treat with Diflucan 150 weekly for 2 weeks. I gave her a prescription of 4 tablets and exp ect that she will give to to her for his course of treatment. We will obtain an dir ty catch sample of urine for chlamydia and gonorrhea testing from her today and treat both o f them if she is positive This note was dictated using W[employer] voice recognition software. Occasional wrong- word or [...] | + +--------+ + + + | C. TRACHOMATIS AND | STAT | 11/21/2018 | Vaginal yeast | Results for this | | N. GONORRHOEAE, NAAT | | 5:11 PM | infection | procedure are in the | | ([facility]TIMA) | | PDT | | results section. | + +--------+ + + + documented in this encounter Results C. trachomatis and N. gonorrhoeae, NAAT ([facility]TIMA) (11/21/2018 5:11 PM PDT) + + + + + + | Component | Value | Ref Range | Performed | Pathologist | | | | | At | Signature | + + + + + + | Chlamydia | Negative | Negative | REFERENCE | | | Trachomatis | | | LAB [facility] | | | Naat | | | - [facility] | | + + + + + + | Neisseria | Negative | Negative | REFERENCE | | | gonorrhoeae | | | LAB [facility] | | | rRNA PCR | | | - [facility] | | + + + + + + + + | Specimen | + + | Urine - Urine | | specimen (specimen) | + + + + + | Narrative | Performed At | + + + | Performed at: [address] [address], | REFERENCE LAB | | [place], [place] [address] Drug Worker: Pacheco Beatty MD, Phone: | [facility] | | [phone] | | + + + + + + + + | Performing | Address | City/State/Zipcode | Phone Number | | Organization | | | | + + + + + | REFERENCE LAB | [id number] | [place], [place] | [phone] | | [facility] | [address] | [id number] | | + + + + + documented in this encounter Visit Diagnoses + + | Diagnosis | + + | Vaginal yeast infection - Primary Candidiasis of vulva and vagina | + + documented in this encounter
--- OUTSIDE RECORDS SUMMARY | ~2019-11-29 | XMS | Encounter Summary ---
Demographics + + + | Address | [address] | | | [place] [address] | + + + | Home Phone [...] Team Providers + +------+ + | Care Nanny/Household Manager Name | Role | Phone | + +------+ + | Kyle Richey DO | PCP | | + +------+ + Reason for Visit +--------+--------+ + | Reason | Onset | Comments | | | Date | | +--------+--------+ + | Other | 06/26/ | Incruse | | | 2016 | | +--------+--------+ + Encounter Details +--------+ + + + + | Date | Type | Department | Care Team | Description | +--------+ + + + + | 06/26/ | Telephone | [facility] | [place], | Other (Incruse) | | 2015 | | PULMONARY [address] | Megha Mendoza MD | | | | | [place], | | | | | | [place] [address] | | | | | | [phone] | | | +--------+ + + + [...] this encounter Miscellaneous Notes Telephone Encounter - AleaInes aguilar RN - 06/28/2015 1:46 PM Tara calls back from [facility] and when she tried to run the Savings Card, it would not go through as 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 Called Elodia at [employer] and she said between Tudorza, Qvar and Flovent, Qvar 80 mcg 1 puff twice daily will be $45i sh for 60 days, the least expensive of all 4 medications. Ordered Qvar, Jessie notified Qvar ordered at [facility] and notified [employer] rep Chauhan that [employer] is excluded from savings card. elephone Encounter - Ines Cosby RN - 06/28/2015 12:29 PM PSTDrug Rep Gissel for Incruse here and offer ed savings card that will get Jessie Incruse free for one year. Called Elodia, pharmacist at [facility] and they cannot get 30 day supply Incruse from their staff development manager (only 7 day supply who's NDC is not compatible with savings card). Called Jessie, she said she's okay going to a dif ferent pharmacy if she can get it free. Called [facility], they do not have 30 day Incruse. Victor M led [facility], they have 30 day Incruse. Ordered with Ray at [facility]. Faxed Incruse Saving s Card for Jessie to [facility]. Called Barb at [facility] and cancelled Incruse order. Jessie not ified to get Incruse from [facility]. Electronically signed by Ines Cosby RN at 2015 12:39 PM PSTTelephone Encounter - Megha Díaz MD - 06/26/2015 8:59 AM PSTWe can inquire about Tudorza as well. If the Tudorza is not covered, she can try Qvar 80 mcg 1 inhalation taice daily or Flovent 110 mcg 1 inhalation twice daily. elephone Eduardo hawkins - Viviana Solorzano RN - 06/26/2015 8:55 AM PSTDiana called stating that her co pay f or the Incruse is over $100.00 which is too expensive for her. She states that the Spiriva c aused leg cramps. doc umented in this encounter Plan of Treatment Not on filedocumented as of this encounter Visit Diagnoses Not on filedocumented in this encounter"
--- OUTSIDE RECORDS SUMMARY | ~2019-11-29 | XMS | Encounter Summary ---
Demographics + + + | Address | [address] | | | [place] [address] | + + + | Home Phone | | + + + | Preferred Language | Unknown | + + + | Marital Status | | + + + | Moravian Affiliation | Unknown | + + + | Race | Unknown | + + + | Ethnic Group | Unknown | + + + Author + + + | Author | [facility] | | | and [place] | + + + | Organization | [facility] | | [...] Team Providers + +------+ + | Care Cylinder Loader Name | Role | Phone | + +------+ + | Kyle Richey DO | PCP | | + +------+ + Reason for Visit +--------+--------+ + | Reason | Onset | Comments | | | Date | | +--------+--------+ + | Other | 02/12/ | symptoms continue | | | 2016 | | +--------+--------+ + Encounter Details +--------+ + + + + | Date | Type | Department | Care Team | Description | +--------+ + + + + | 02/12/ | Telephone | [facility] | JorgexiaoMarissa, | Other (symptoms | | 2016 | | CARDIOLOGY [address] | MD [address] | continue) | | | | [place], | [place], | | | | | [place] [address] | [place] [address] | | | | | [phone] | [phone] | | | | | | | [...] this encounter Miscellaneous Notes Telephone Encounter - Evangelina Interiano RN - 02/13/2016 2:02 PM PDTDiana called, she state s that she continues to have off and on chest pain and shortness of breath with walking. She would like to see Dr Beavers again to discuss what ever further testing may be needed at this time. She will be scheduled to see Dr Beavers soon. .......................................... .Evangelina Interiano RN on 02/13/16 at 14:03 documented in this encounter Plan of Treatment Not on filedocumented as of this encounter Visit Diagnoses Not on filedocumented in this encounter"
--- OUTSIDE RECORDS SUMMARY | ~2019-11-29 | XMS | Encounter Summary ---
Demographics + + + | Address | [address] | | | [place] [address] | + + + | Home Phone [...] Team Providers + +------+ + | Care Manager Audio Name | Role | Phone | + [...] | | [address] [place] | [place] [address] | | | | | [place] [address] | | | | | | [phone] | | | +--------+ + + + [...] + | XR CHEST AP PORTABLE | Routin | 11/19/2015 | | Results for this | | | e | 9:20 PM | | procedure are in the | | | | PDT | | results section. | + +--------+ + + + documented in this encounter Results XR Chest AP Portable (11/19/2015 9:20 PM PDT) + + | Specimen | [...]
--- OUTSIDE RECORDS SUMMARY | ~2019-11-29 | XMS | Encounter Summary ---
Demographics + + + | Address | [address] | | | [place] [address] | + + + | Home Phone | | + + + | Preferred Language | Unknown | + + + | Marital Status | | + + + | Yarsani Affiliation | Unknown | + + + [...] Team Providers + +------+ + | Care Travel Money Advisor Name | Role | Phone | + +------+ + | Kyle Richey DO | PCP | | + +------+ + Encounter Details +--------+ + + + + | Date | Type | Department | Care Team | Description | +--------+ + + + + | 06/19/ | Abstract | [facility] | [place], | | | 2016 | | PULMONARY [address] | Megha Mendoza MD | | | | | [place], | | | | | | [place] [address] | | | | | | [phone] | | | +--------+ + + + [...]
--- OUTSIDE RECORDS SUMMARY | ~2019-11-29 | XMS | Encounter Summary ---
Demographics + + + | Address | [address] | | | [place] [address] | + + + | Home Phone | | + + + | Preferred Language | Unknown | + + + | Marital Status | | + + + | Samaritan Affiliation | Unknown | + + + | Race | Unknown | + + + | Ethnic Group | Unknown | + + + Author + + + | Author | [facility] | | | and [place] | + + + | Organization | [facility] [...] Team Providers + +------+ + | Care Rehabilitation Aide/Scheduler Name | Role | Phone | + +------+ + | Kyle Richey DO | PCP | | + +------+ + Encounter Details +--------+ + + + + | Date | Type | Department | Care Team | Description | +--------+ + + + + | 10/31/ | Abstract | [facility] [place] | Riaz Retana | | | 2016 | | NEPHROLOGY [address] | DO Hali [address] | | | | | [address] | [address] [place] | | | | | [place], [place] | [place] [address] | | | | | [address] | [phone] | | | | | [phone] | | | +--------+ + + + [...] +--------+ + + + | EXTERNAL LAB: MARIAJOSE | Routin | 10/28/2016 | | Results for this | | | e | | | procedure are in the | | | | | | results section. | + +--------+ + + + | EXTERNAL LAB: | Routin | 10/28/2016 | | Results for this | | GLUCOSE | e | | | procedure are in the | | | | | | results section. | + +--------+ + + + | EXTERNAL LAB: ELLE | Routin | 10/28/2016 | | Results for this | | | e | | | procedure are in the | | | | | | results section. | + +--------+ + + + | EXTERNAL LAB: CYNDIE | Routin | 10/28/2016 | | Results for this | | | e | | | procedure are in the | | | | | | results section. | + +--------+ + + + | EXTERNAL LAB: | Routin | 10/28/2016 | | Results for this | | ALKALINE PHOSPHATASE | e | | | procedure are in the | | | | | | results section. | + +--------+ + + + | EXTERNAL LAB: | Routin | 10/28/2016 | | Results for this | | BILIRUBIN, TOTAL | e | | | procedure are in the | | | | | | results section. | + +--------+ + + + | EXTERNAL LAB: | Routin | 10/28/2016 | | Results for this | | ALBUMIN | e | | | procedure are in the | | | | | | results section. | + +--------+ + + + | EXTERNAL LAB: | Routin | 10/28/2016 | | Results for this | | PROTEIN, TOTAL | e | | | procedure are in the | | | | | | results section. | + +--------+ + + + | EXTERNAL LAB: | Routin | 10/28/2016 | | Results for this | | PHOSPHORUS | e | | | procedure are in the | | | | | | results section. | + +--------+ + + + | EXTERNAL LAB: | Routin | 10/28/2016 | | Results for this | | CALCIUM | e | | | procedure are in the | | | | | | results section. | + +--------+ + + + | EXTERNAL LAB: CARBON | Routin | 10/28/2016 | | Results for this | | DIOXIDE | e | | | procedure are in the | | | | | | results section. | + +--------+ + + + | EXTERNAL LAB: | Routin | 10/28/2016 | | Results for this | | CHLORIDE | e | | | procedure are in the | | | | | | results section. | + +--------+ + + + | EXTERNAL LAB: | Routin | 10/28/2016 | | Results for this | | POTASSIUM | e | | | procedure are in the | | | | | | results section. | + +--------+ + + + | EXTERNAL LAB: SODIUM | Routin | 10/28/2016 | | Results for this | | | e | | | procedure are in the | | | | | | results section. | + +--------+ + + + | EXTERNAL LAB: PTH, | Routin | 10/28/2016 | | Results for this | | INTACT | e | | | procedure are in the | | | | | | results section. | + +--------+ + + + | EXTERNAL LAB: | Routin | 10/28/2016 | | Results for this | | PROTEIN, URINE, 24HR | e | | | procedure are in the | | | | | | results section. | + +--------+ + + + | EXTERNAL LAB: | Routin | 10/28/2016 | | Results for this | | HEPATITIS C AB | e | | | procedure are in the | | | | | | results section. | + +--------+ + + + | EXTERNAL LAB: | Routin | 10/28/2016 | | Results for this | | HEPATITIS B SURFACE | e | | | procedure are in the | | AG | | | | results section. | + +--------+ + + + | EXTERNAL LAB: | Routin | 10/28/2016 | | Results for this | | HEPATITIS B SURFACE | e | | | procedure are in the | | AB | | | | results section. | + +--------+ + + + | EXTERNAL LAB: CBC | Routin | 10/28/2016 | | Results for this | | | e | | | procedure are in the | | | | | | results section. | + +--------+ + + + | EXTERNAL LAB: | Routin | 10/28/2016 | | Results for this | | TRIGLYCERIDES | e | | | procedure are in the | | | | | | results section. | + +--------+ + + + | EXTERNAL LAB: | Routin | 10/28/2016 | | Results for this | | CHOLESTEROL, HDL | e | | | procedure are in the | | | | | | results section. | + +--------+ + + + | EXTERNAL LAB: | Routin | 10/28/2016 | | Results for this | | CHOLESTEROL, TOTAL | e | | | procedure are in the | | | | | | results section. | + +--------+ + + + | EXTERNAL LAB: | Routin | 10/28/2016 | | Results for this | | CHOLESTEROL, LDL | e | | | procedure are in the | | | | | | results section. | + +--------+ + + + | EXTERNAL LAB: EGFR | Routin | 10/28/2016 | | Results for this | | | e | | | procedure are in the | | | | | | results section. | + +--------+ + + + | EXTERNAL LAB: | Routin | 10/28/2016 | | Results for this | | CREATININE | e | | | procedure are in the | | | | | | results section. | + +--------+ + + + | ARTEM PANEL | Routin | 10/28/2016 | | Results for this | | | e | | | procedure are in the | | | | | | results section. | + +--------+ + + + | CREATININE | Routin | 10/28/2016 | | Results for this | | CLEARANCE, RESULT | e | | | procedure are in the | | | | | | results section. | + +--------+ + + + | RHEUMATOID FACTOR, | Routin | 10/28/2016 | | Results for this | | QUANT | e | | | procedure are in the | | | | | | results section. | + +--------+ + + + | HEMOGLOBIN A1C | Routin | 10/28/2016 | | Results for this | | | e | | | procedure are in the | | | | | | results section. | + +--------+ + + + documented in this encounter Results External Lab: CBC (10/28/2016) + + + + + + | Component | Value | Ref Range | Performed | Pathologist | | | | | At | Signature | + + + + + + | WBC, | 10.9 | 4.5 - 11 | EXTERNAL | | | External | | | LAB | | + + + + + + | HGB, | 13 | 12 - 16 | EXTERNAL | | | External | | | LAB | | + + + + + + | HCT, | 40.1 | 35 - 45 | EXTERNAL | | | External | | | LAB | | + + + + + + | PLT, | 316 | 140 - 440 | EXTERNAL | | | External | | | LAB | | + + + + + + | RBC, | 4.83 | 4 - 6 | EXTERNAL | | | External | | | LAB | | + + + + + + | MCV, | 83 | 81 - 99 | EXTERNAL | | | External | | | LAB | | + + + + + + | RDW, | 15.2 (A) | 10.5 - 15 | EXTERNAL | | | External | | | LAB | | + + + + + + + +---------+ + + | Performing | Address | City/State/Zipcode | Phone Number | | Organization | | | | + +---------+ + + | EXTERNAL LAB | | | | + +---------+ + + External Lab: Hepatitis C Ab (10/28/2016) + + + + + + | Component | Value | Ref Range | Performed | Pathologist | | | | | At | Signature | + + + + + + | HCV, | Negative (A) | Non-Reactive | | | | External | | | | | + + + + + + + + | Specimen | + + | | + + External Lab: Hepatitis B Surface Ag (10/28/2016) + + + + + + | Component | Value | Ref Range | Performed | Pathologist | | | | | At | Signature | + + + + + + | Hepatitis B | Negative | | | | | Surface | | | | | | Ag, | | | | | | External | | | | | + + + + + + + + | Specimen | + + | | + + External Lab: Hepatitis B Surface Ab (10/28/2016) + + + + + + | Component | Value | Ref Range | Performed | Pathologist | | | | | At | Signature | + + + + + + | Hepatitis B | Negative | | | | | Surface | | | | | | Ab, | | | | | | External | | | | | + + + + + + + + | Specimen | + + | | + + Rheumatoid Factor, Quant (10/28/2016) + +---------+ + + + | Component | Value | Ref Range | Performed | Pathologist | | | | | At | Signature | + +---------+ + + + | RHEUMATOID | 218 (A) | 20 | | | | FACTOR | | | | | + +---------+ + + + | C3 | 116.8 | 87 - 200 | | | | COMPLEMENT | | | | | + +---------+ + + + | C4 | 26.4 | 19 - 52 | | | | COMPLEMENT | | | | | + +---------+ + + + + + | Specimen | + + | Blood | + + ANCA Panel (10/28/2016) + +-------+ + + + | Component | Value | Ref Range | Performed | Pathologist | | | | | At | Signature | + +-------+ + + + | Myeloperoxi | 0.2 | 0 - 0.9 | | | | dase | | | | | | Antibody | | | | | + +-------+ + + + | Proteinase | 0.2 | 0 - 0.9 | | | | 3 Antibody | | | | | + +-------+ + + + + + | Specimen | + + | Blood | + + External Lab: PTH, Intact (10/28/2016) + + + + + + | Component | Value | Ref Range | Performed | Pathologist | | | | | At | Signature | + + + + + + | PTH Intact, | 166.2 (A) | 15 - 65 | | | | External | | | | | + + + + + + + + | Specimen | + + | | + + Creatinine Clearance, Result (10/28/2016) + + + + + + | Component | Value | Ref Range | Performed | Pathologist | | | | | At | Signature | + + + + + + | CREATININE | 49.0 (A) | 88.0 - 128.0 | | | | CLEARANCE | | mL/min | | | + + + + + + | 24H Urine | 1,700 | mL | | | | Volume | | | | | + + + + + + + + | Specimen | + + | Urine | + + Hemoglobin A1C (10/28/2016) + +---------+ + + + | Component | Value | Ref Range | Performed | Pathologist | | | | | At | Signature | + +---------+ + + + | Hemoglobin | 7.3 (A) | 4 - 6 | EXTERNAL | | | A1c, | | | LAB | | | external | | | | | + +---------+ + + + + + | Specimen | + + | Blood | + + + +---------+ + + | Performing | Address | City/State/Zipcode | Phone Number | | Organization | | | | + +---------+ + + | EXTERNAL LAB | | | | + +---------+ + + External Lab: MARIAJOSE (10/28/2016) + +-------+ + + + | Component | Value | Ref Range | Performed | Pathologist | | | | | At | Signature | + +-------+ + + + | BUN, | 21 | 6 - 23 | EXTERNAL | | | External | | | LAB | | + +-------+ + + + + +---------+ + + | Performing | Address | City/State/Zipcode | Phone Number | | Organization | | | | + +---------+ + + | EXTERNAL LAB | | | | + +---------+ + + External Lab: Glucose (10/28/2016) + +---------+ + + + | Component | Value | Ref Range | Performed | Pathologist | | | | | At | Signature | + +---------+ + + + | Glucose, | 145 (A) | 70 - 100 | EXTERNAL | | | External | | | LAB | | + +---------+ + + + + +---------+ + + | Performing | Address | City/State/Zipcode | Phone Number | | Organization | | | | + +---------+ + + | EXTERNAL LAB | | | | + +---------+ + + External Lab: ALT (10/28/2016) + +-------+ + + + | Component | Value | Ref Range | Performed | Pathologist | | | | | At | Signature | + +-------+ + + + | ALT, | 18 | 7 - 52 | EXTERNAL | | | External | | | LAB | | + +-------+ + + + + +---------+ + + | Performing | Address | City/State/Zipcode | Phone Number | | Organization | | | | + +---------+ + + | EXTERNAL LAB | | | | + +---------+ + + External Lab: AST (10/28/2016) + +-------+ + + + | Component | Value | Ref Range | Performed | Pathologist | | | | | At | Signature | + +-------+ + + + | AST, | 16 | 13 - 36 | EXTERNAL | | | External | | | LAB | | + +-------+ + + + + +---------+ + + | Performing | Address | City/State/Zipcode | Phone Number | | Organization | | | | + +---------+ + + | EXTERNAL LAB | | | | + +---------+ + + External Lab: Alkaline Phosphatase (10/28/2016) + +-------+ + + + | Component | Value | Ref Range | Performed | Pathologist | | | | | At | Signature | + +-------+ + + + | ALP, | 69 | 31 - 130 | EXTERNAL | | | External | | | LAB | | + +-------+ + + + + +---------+ + + | Performing | Address | City/State/Zipcode | Phone Number | | Organization | | | | + +---------+ + + | EXTERNAL LAB | | | | + +---------+ + + External Lab: Bilirubin, Total (10/28/2016) + +-------+ + + + | Component | Value | Ref Range | Performed | Pathologist | | | | | At | Signature | + +-------+ + + + | Bilirubin, | 0.3 | 0 - 1.2 | EXTERNAL | | | [...] + +---------+ + + External Lab: Albumin (10/28/2016) + +-------+ + + + | Component | Value | Ref Range | Performed | Pathologist | | | | | At | Signature | + +-------+ + + + | Albumin, | 4.0 | 3.5 - 5 | EXTERNAL | | | External | | | LAB | | + +-------+ + + + + +---------+ + + | Performing | Address | City/State/Zipcode | Phone Number | | Organization | | | | + +---------+ + + | EXTERNAL LAB | | | | + +---------+ + + External Lab: Protein, Total (10/28/2016) + +-------+ + + + | Component | Value | Ref Range | Performed | Pathologist | | | | | At | Signature | + +-------+ + + + | Protein, | 6.9 | 6 - 8 | EXTERNAL | | | Total, | | | LAB | | | External | | | | | + +-------+ + + + + +---------+ + + | Performing | Address | City/State/Zipcode | Phone Number | | Organization | | | | + +---------+ + + | EXTERNAL LAB | | | | + +---------+ + + External Lab: Phosphorus (10/28/2016) + +-------+ + + + | Component | Value | Ref Range | Performed | Pathologist | | | | | At | Signature | + +-------+ + + + | Phosphorus, | 3.6 | 2.5 - 5 | EXTERNAL | | | External | | | LAB | | + +-------+ + + + + +---------+ + + | Performing | Address | City/State/Zipcode | Phone Number | | Organization | | | | + +---------+ + + | EXTERNAL LAB | | | | + +---------+ + + External Lab: Calcium (10/28/2016) + +-------+ + + + | Component | Value | Ref Range | Performed | Pathologist | | | | | At | Signature | + +-------+ + + + | Calcium, | 9.1 | 8.4 - 10.2 | EXTERNAL | | | External | | | LAB | | + +-------+ + + + + +---------+ + + | Performing | Address | City/State/Zipcode | Phone Number | | Organization | | | | + +---------+ + + | EXTERNAL LAB | | | | + +---------+ + + External Lab: Carbon Dioxide (10/28/2016) + +--------+ + + + | Component | Value | Ref Range | Performed | Pathologist | | | | | At | Signature | + +--------+ + + + | Carbon | 18 (A) | 23 - 32 | EXTERNAL | | | Dioxide, | | | LAB | | | External | | | | | + +--------+ + + + + +---------+ + + | Performing | Address | City/State/Zipcode | Phone Number | | Organization | | | | + +---------+ + + | EXTERNAL LAB | | | | + +---------+ + + External Lab: Chloride (10/28/2016) + +-------+ + + + | Component | Value | Ref Range | Performed | Pathologist | | | | | At | Signature | + +-------+ + + + | Chloride, | 105 | 100 - 110 | EXTERNAL | | | External | | | LAB | | + +-------+ + + + + +---------+ + + | Performing | Address | City/State/Zipcode | Phone Number | | Organization | | | | + +---------+ + + | EXTERNAL LAB | | | | + +---------+ + + External Lab: Potassium (10/28/2016) + +-------+ + + + | Component | Value | Ref Range | Performed | Pathologist | | | | | At | Signature | + +-------+ + + + | Potassium, | 4.0 | 3.5 - 5.1 | EXTERNAL | | | External | | | LAB | | + +-------+ + + + + +---------+ + + | Performing | Address | City/State/Zipcode | Phone Number | | Organization | | | | + +---------+ + + | EXTERNAL LAB | | | | + +---------+ + + External Lab: Sodium (10/28/2016) + +-------+ + + + | Component | Value | Ref Range | Performed | Pathologist | | | | | At | Signature | + +-------+ + + + | Sodium, | 137 | 135 - 145 | EXTERNAL | | | External | | | LAB | | + +-------+ + + + + +---------+ + + | Performing | Address | City/State/Zipcode | Phone Number | | Organization | | | | + +---------+ + + | EXTERNAL LAB | | | | + +---------+ + + External Lab: Protein, Urine, 24Hr (10/28/2016) + + + + + + | Component | Value | Ref Range | Performed | Pathologist | | | | | At | Signature | + + + + + + | Protein, | 1,462 (A) | 150 | EXTERNAL | | | Urine 24Hr, | | | LAB | | | External | | | | | + + + + + + + + | Specimen | + + | Urine | + + + +---------+ + + | Performing | Address | City/State/Zipcode | Phone Number | | Organization | | | | + +---------+ + + | EXTERNAL LAB | | | | + +---------+ + + External Lab: Triglycerides (10/28/2016) + +---------+ + + + | Component | Value | Ref Range | Performed | Pathologist | | | | | At | Signature | + +---------+ + + + | Triglycerid | 307 (A) | 150 | EXTERNAL | | | es, | | | LAB | | | External | | | | | + +---------+ + + + + + | Specimen | + + | Blood | + + + +---------+ + + | Performing | Address | City/State/Zipcode | Phone Number | | Organization | | | | + +---------+ + + | EXTERNAL LAB | | | | + +---------+ + + External Lab: Cholesterol, HDL (10/28/2016) + +-------+ + + + | Component | Value | Ref Range | Performed | Pathologist | | | | | At | Signature | + +-------+ + + + | HDL | 48.5 | 40 mg/dl | EXTERNAL | | | Cholesterol | | | LAB | | | , External | | | | | + +-------+ + + + + + | Specimen | + + | Blood | + + + +---------+ + + | Performing | Address | City/State/Zipcode | Phone Number | | Organization | | | | + +---------+ + + | EXTERNAL LAB | | | | + +---------+ + + External Lab: Cholesterol, Total (10/28/2016) + +---------+ + + + | Component | Value | Ref Range | Performed | Pathologist | | | | | At | Signature | + +---------+ + + + | Cholesterol | 219 (A) | 200 mg/dl | EXTERNAL | | | , Total, | | | LAB | | | External | | | | | + +---------+ + + + + + | Specimen | + + | Blood | + + + +---------+ + + | Performing | Address | City/State/Zipcode | Phone Number | | Organization | | | | + +---------+ + + | EXTERNAL LAB | | | | + +---------+ + + External Lab: Cholesterol, LDL (10/28/2016) + +---------+ + + + | Component | Value | Ref Range | Performed | Pathologist | | | | | At | Signature | + +---------+ + + + | LDL | 109 (A) | 100 | EXTERNAL | | | Cholesterol | | | LAB | | | , Direct, | | | | | | External | | | | | + +---------+ + + + + + | Specimen | + + | Blood | + + + +---------+ + + | Performing | Address | City/State/Zipcode | Phone Number | | Organization | | | | + +---------+ + + | EXTERNAL LAB | | | | + +---------+ + + External Lab: eGFR (10/28/2016) + +--------+ + + + | Component | Value | Ref Range | Performed | Pathologist | | | | | At | Signature | + +--------+ + + + | eGFR, | 34 (A) | 60 | EXTERNAL | | | External | | | LAB | | + +--------+ + + + + + | Specimen | + + | Blood | + + + +---------+ + + | Performing | Address | City/State/Zipcode | Phone Number | | Organization | | | | + +---------+ + + | EXTERNAL LAB | | | | + +---------+ + + External Lab: Creatinine (10/28/2016) + + + + + + | Component | Value | Ref Range | Performed | Pathologist | | | | | At | Signature | + + + + + + | Creatinine, | 1.59 (A) | 0.6 - 1.3 | EXTERNAL | | | External | | | LAB | | + + + + + + + + | Specimen | + + | Blood | + + + +---------+ + + | Performing | Address | City/State/Zipcode | Phone Number | | Organization | | | | + +---------+ + + | EXTERNAL LAB | | | | + +---------+ + + documented in this encounter Visit Diagnoses Not on filedocumented in this encounter"
--- OUTSIDE RECORDS SUMMARY | ~2019-11-29 | XMS | Encounter Summary ---
Demographics + + + | Address | [address] | | | [place] [address] | + + + | Home Phone | | + + + | Preferred Language | Unknown | + + + | Marital Status | | + + + | Mormonism Affiliation | Unknown | + + + | Race | Unknown | + + + | Ethnic Group | Unknown | + + + Author + + + | Author | [facility] | | | and [place] | + + + | Organization | [facility] | | [...] Team Providers + +------+ + | Care Java Grails Developer Name | Role | Phone | + +------+ + | Kyle Richey DO | PCP | | + +------+ + Reason for Visit +--------+--------+ + | Reason | Onset | Comments | | | Date | | +--------+--------+ + | Other | 11/22/ | plan of care | | | 2016 | | +--------+--------+ + Encounter Details +--------+ + + + + | Date | Type | Department | Care Team | Description | +--------+ + + + + | 11/22/ | Telephone | [facility] Phylliscarrolalfredo Carrolphyllis, | Other (plan of care) | | 2015 | | CARDIOLOGY [address] [place] | | | | | [place], | [place], | | | | | [place] [address] | [place] [address] | | | | | [phone] | [phone] | | | | | | | [...] this encounter Miscellaneous Notes Telephone Encounter - Landis-WalshMabel villalba - 11/24/2015 9:02 AM PDTPatient schedule and IC U nurse informed. e lephone Encounter - Evangelina Interiano RN - 11/24/2015 8:27 AM PDTLucy, this is the one I wa s talking about this morning, Dr Beavers would like her to have an appointment [facility] to [facility]. 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 Referral was gui ray. See referral #[id number] for updates. elephone Encounter - Evangelina Interiano RN - 11/23/2015 8:33 AM PDTPer convers ation with Dr Beavers, patient is currently admitted to the hospital and he has seen her for co nsult and done a cath on her today. She will have stents placed by Dr Bell today and will n eed to follow up with Dr Beavers in about 2 weeks in the office. I will ask PSR's to please co ordinate a follow up with the patient and/or nursing staff. Thanks ......................... ..................Evangelina Interiano RN on 11/23/15 at 8:34 documented in this encounter Plan of Treatment Not on filedocumented as of this encounter Visit Diagnoses Not on filedocumented in this encounter"
--- OUTSIDE RECORDS SUMMARY | ~2019-11-29 | XMS | Encounter Summary ---
Demographics + + + | Address | [address] | | | [place] [address] | + + + | Home Phone | | + + + | Preferred Language | Unknown | + + + | Marital Status | | + + + | Mormon Affiliation | Unknown | + + + [...] | ECON | Unknown | | | Dwayneinas | | | | + + +---------+ + Care Team Providers + +------+ + | Care Special Agent Secret Service Name | Role | Phone | + +------+ + PCP | Unavailable | + +------+ + Encounter Details +--------+ + + + + | Date | Type | Department | Care Team | Description | +--------+ + + + + | 01/02/ | Orders Only | [facility] | [place], | Cough (Primary Dx) | | 2014 | | PULMONARY [address] | Megha Mendoza MD | | | | | [place], | | | | | | [place] [address] | | | | | | [phone] | | | +--------+ + + + [...] Not on filedocumented as of this encounter Results PFT PULMONARY FUNCTION TESTING ORDERS Full PFT ([place] w/BD, lung volumes, diffusion)?: Yes (03/12/2015 5:15 PM PST) + + + | Narrative | Performed At | + + + | Megha Díaz MD 03/12/2015 17:15 PULMONARY | | | FUNCTION TESTING METHOD: Spirometry was obtained pre | | | administration of inhaled bronchodilator only. Lung volumes were | | | obtained by body plethysmography. Diffusion capacity was obtained by | | | single breath method and was not corrected for a measured | | | hemoglobin. ATS standards were met. SPIROMETRY: FVC was | | | mildly reduced at 2.00 L or 67% of predicted. FEV1 was mildly | | | reduced at 1.71 L or 69% of predicted. FEV1/FVC ratio was normal at | | | 86%. LUNG VOLUMES: Total lung capacity was normal at 4.01 L or | | | 85% of predicted. Residual volume was normal at 2.00 L or 117% of | | | predicted. RV/TLC ratio was elevated at 50% or 139 % of predicted. | | | DIFFUSION CAPACITY: Diffusion capacity was moderately reduced at | | | 13.9 mL/mmHg per minute or 57% of predicted and was not corrected | | | for a measured hemoglobin. IMPRESSION: Spirometry is consistent | | | with mild restrictive physiology. Lung volume testing is consistent | | | with obstructive physiology. Diffusion capacity is moderately | | | reduced and is not corrected for measured hemoglobin. | | | Electronically signed by: Megha Díaz MD 03/12/2015 17:12 | | | [facility] CC: Kyle Richey, | | | DO | | + + + documented in this encounter Visit Diagnoses + + | Diagnosis | + + | Cough - Primary | + + documented in this encounter"
--- OUTSIDE RECORDS SUMMARY | ~2019-11-29 | XMS | Encounter Summary ---
Demographics + + + | Address | [address] | | | [place] [address] | + + + | Home Phone | | + + + | Preferred Language | Unknown | + + + | Marital Status | | + + + | Protestant Affiliation | Unknown | + + + | Race | Unknown | + + + | Ethnic Group | Unknown | + + + Author + + + | Author | [facility] | | | and [place] | + + + | Organization | [facility] | | | [...] Team Providers + +------+ + | Care Junior Copywriter Name | Role | Phone | + +------+ + | Kyle Richey DO | PCP | | + +------+ + Encounter Details +--------+ + + + + | Date | Type | Department | Care Team | Description | +--------+ + + + + | 11/20/ | Orders Only | [facility] | Marissa Rouse, | | | 2016 | | CARDIOLOGY [address] | | | | | [place], | [place], | | | | | [place] [address] | [place] [address] | | | | | [phone] | [phone] | | | | | | | [...]
--- OUTSIDE RECORDS SUMMARY | ~2019-11-29 | XMS | Encounter Summary ---
Demographics + + + | Address | [address] | | | [place] [address] | + + + | Home Phone | | + + + | Preferred Language | Unknown | + + + | Marital Status | | + + + | Amish Affiliation | Unknown | + + + [...] Team Providers + +------+ + | Care Chief Controller Name | Role | Phone | + +------+ + PCP | Unavailable | + +------+ + Encounter Details +--------+ + + + + | Date | Type | Department | Care Team | Description | +--------+ + + + + | 02/23/ | Abstract | [facility] | [place], | | | 2014 | | PULMONARY [address] | Megha Mendoza MD | | | | | [place], | | | | | | [place] [address] | | | | | | [phone] | | | +--------+ + + + + Social History + + + +--------+------+ | Tobacco Use | Types | Packs/Day | Years | Date | | | | | Used | | + + + +--------+------+ | Former Smoker | Cigarettes | | | | + + + +--------+------+ + +---+---+ + | Smokeless Tobacco: | [...] | EXTERNAL LAB: BUN | Routin | 09/08/2014 | | Results for this | | | e | | | procedure are in the | | | | | | results section. | + +--------+ + + + | EXTERNAL LAB: | Routin | 09/08/2014 | | Results for this | | GLUCOSE | e | | | procedure are in the | | | | | | results section. | + +--------+ + + + | EXTERNAL LAB: ELLE | Routin | 09/08/2014 | | Results for this | | | e | | | procedure are in the | | | | | | results section. | + +--------+ + + + | EXTERNAL LAB: AST | Routin | 09/08/2014 | | Results for this | | | e | | | procedure are in the | | | | | | results section. | + +--------+ + + + | EXTERNAL LAB: | Routin | 09/08/2014 | | Results for this | | ALKALINE PHOSPHATASE | e | | | procedure are in the | | | | | | results section. | + +--------+ + + + | EXTERNAL LAB: | Routin | 09/08/2014 | | Results for this | | BILIRUBIN, TOTAL | e | | | procedure are in the | | | | | | results section. | + +--------+ + + + | EXTERNAL LAB: | Routin | 09/08/2014 | | Results for this | | ALBUMIN | e | | | procedure are in the | | | | | | results section. | + +--------+ + + + | EXTERNAL LAB: | Routin | 09/08/2014 | | Results for this | | PROTEIN, TOTAL | e | | | procedure are in the | | | | | | results section. | + +--------+ + + + | EXTERNAL LAB: | Routin | 09/08/2014 | | Results for this | | CALCIUM | e | | | procedure are in the | | | | | | results section. | + +--------+ + + + | EXTERNAL LAB: CARBON | Routin | 09/08/2014 | | Results for this | | DIOXIDE | e | | | procedure are in the | | | | | | results section. | + +--------+ + + + | EXTERNAL LAB: | Routin | 09/08/2014 | | Results for this | | CHLORIDE | e | | | procedure are in the | | | | | | results section. | + +--------+ + + + | EXTERNAL LAB: | Routin | 09/08/2014 | | Results for this | | POTASSIUM | e | | | procedure are in the | | | | | | results section. | + +--------+ + + + | EXTERNAL LAB: SODIUM | Routin | 09/08/2014 | | Results for this | | | e | | | procedure are in the | | | | | | results section. | + +--------+ + + + | EXTERNAL LAB: | Routin | 09/08/2014 | | Results for this | | URINALYSIS | e | | | procedure are in the | | | | | | results section. | + +--------+ + + + | EXTERNAL LAB: CBC | Routin | 09/08/2014 | | Results for this | | | e | | | procedure are in the | | | | | | results section. | + +--------+ + + + | EXTERNAL LAB: EGFR | Routin | 09/08/2014 | | Results for this | | | e | | | procedure are in the | | | | | | results section. | + +--------+ + + + | EXTERNAL LAB: | Routin | 09/08/2014 | | Results for this | | CREATININE | e | | | procedure are in the | | | | | | results section. | + +--------+ + + + | URINALYSIS, REFLEX | Routin | 09/08/2014 | | Results for this | | MICROSCOPIC AND/OR | e | | | procedure are in the | | CULTURE | | | | results section. | + +--------+ + + + | CBC NO DIFFERENTIAL | Routin | 09/08/2014 | | Results for this | | | e | | | procedure are in the | | | | | | results section. | + +--------+ + + + | COMPREHENSIVE | Routin | 09/08/2014 | | Results for this | | METABOLIC PANEL | e | | | procedure are in the | | | | | | results section. | + +--------+ + + + | EXTERNAL LAB: MARIAJOSE | Routin | 03/11/2014 | | Results for this | | | e | | | procedure are in the | | | | | | results section. | + +--------+ + + + | EXTERNAL LAB: | Routin | 03/11/2014 | | Results for this | | GLUCOSE | e | | | procedure are in the | | | | | | results section. | + +--------+ + + + | EXTERNAL LAB: ALT | Routin | 03/11/2014 | | Results for this | | | e | | | procedure are in the | | | | | | results section. | + +--------+ + + + | EXTERNAL LAB: AST | Routin | 03/11/2014 | | Results for this | | | e | | | procedure are in the | | | | | | results section. | + +--------+ + + + | EXTERNAL LAB: | Routin | 03/11/2014 | | Results for this | | ALKALINE PHOSPHATASE | e | | | procedure are in the | | | | | | results section. | + +--------+ + + + | EXTERNAL LAB: | Routin | 03/11/2014 | | Results for this | | BILIRUBIN, TOTAL | e | | | procedure are in the | | | | | | results section. | + +--------+ + + + | EXTERNAL LAB: | Routin | 03/11/2014 | | Results for this | | ALBUMIN | e | | | procedure are in the | | | | | | results section. | + +--------+ + + + | EXTERNAL LAB: | Routin | 03/11/2014 | | Results for this | | PROTEIN, TOTAL | e | | | procedure are in the | | | | | | results section. | + +--------+ + + + | EXTERNAL LAB: | Routin | 03/11/2014 | | Results for this | | CALCIUM | e | | | procedure are in the | | | | | | results section. | + +--------+ + + + | EXTERNAL LAB: CARBON | Routin | 03/11/2014 | | Results for this | | DIOXIDE | e | | | procedure are in the | | | | | | results section. | + +--------+ + + + | EXTERNAL LAB: | Routin | 03/11/2014 | | Results for this | | CHLORIDE | e | | | procedure are in the | | | | | | results section. | + +--------+ + + + | EXTERNAL LAB: | Routin | 03/11/2014 | | Results for this | | POTASSIUM | e | | | procedure are in the | | | | | | results section. | + +--------+ + + + | EXTERNAL LAB: SODIUM | Routin | 03/11/2014 | | Results for this | | | e | | | procedure are in the | | | | | | results section. | + +--------+ + + + | EXTERNAL LAB: | Routin | 03/11/2014 | | Results for this | | VITAMIN D, | e | | | procedure are in the | | 25-HYDROXY | | | | results section. | + +--------+ + + + | EXTERNAL LAB: CBC | Routin | 03/11/2014 | | Results for this | | | e | | | procedure are in the | | | | | | results section. | + +--------+ + + + | EXTERNAL LAB: | Routin | 03/11/2014 | | Results for this | | CREATININE | e | | | procedure are in the | | | | | | results section. | + +--------+ + + + | CBC WITH | Routin | 03/11/2014 | | Results for this | | DIFFERENTIAL | e | | | procedure are in the | | | | | | results section. | + +--------+ + + + | COMPREHENSIVE | Routin | 03/11/2014 | | Results for this | | METABOLIC PANEL | e | | | procedure are in the | | | | | | results section. | + +--------+ + + + documented in this encounter Results Urinalysis, Reflex Microscopic and/or Culture (09/08/2014) + + + + + + | Component | Value | Ref Range | Performed | Pathologist | | | | | At | Signature | + + + + + + | COLLECTION | Clean Catch | | [facility] | | | [facility] | | | [facility] | | | | | | [facility] | | | | | | [facility] - | | | | | | LABORATORY | | + + + + + + | Color | yellow | | [facility] | | | | | | [facility] | | | | | | [facility] | | | | | | [facility] - | | | | | | LABORATORY | | + + + + + + | Clarity, | Clear | | [facility] | | | Urine | [...] + + + + | Urobilinoge | < 0.2 mg/dLComment: <1 | < 0.2 mg/dL, | [facility] | | | n, Urine | | 1.0 mg/dL, 4.0 | [facility] | | | | | mg/dL, Normal, | MEDICAL | | | | | 1.0 E.U./dL, | CENTER - | | | | | 0.2 E.U./dL, | LABORATORY | | | | | 0.2 mg/dL, | | | | | | Negative, 1 | | | | | | mg/dL, <2.0 | | | | | | mg/dL | | | + + + + [...] + + + + | Bacteria, | Trace (A)Comment: FEW | Negative /HPF | [facility] | | | Urine | | | [facility] | | | | | | [facility] | | | | | | CENTER - | | | | | | LABORATORY | | + + + + + + | Squamous | 0-2 | 0 - 2 /LPF | [facility] [...] [address] | [place] | [phone] | | [facility] | | [id number], [facility] | | | - LABORATORY | | | | + + + + + CBC no Differential (09/08/2014) + + + + + + | Component | Value | Ref Range | Performed | Pathologist | | | | | At | Signature | + + + + + + | MCH | 20.1 (A) | 26.0 - 33.0 pg | [facility] | | | | | | [facility] | | | | | | [facility] | | | | | | CENTER - | | | | | | LABORATORY | | + + + + + + | MCHC | 30.3 (A) | 31.0 - 36.0 % | [facility] | | | | | | [facility] | | | | | | [facility] | | | | | | CENTER - | | | | | | LABORATORY | | + + + + + + | MPV | 9.4 | 0.0 - 12.0 fL | [facility] | | | | | | [facility] | | | | | | MEDICAL | | | | | | CENTER - | | | | | | LABORATORY | | + + + + + + | RBC | abnormal | | [facility] | | | Morphology | | | [facility] | | | | | | MEDICAL | | | | | | CENTER - | | | | | | LABORATORY | | + + + + + + | Plt Comment | Normal | | [facility] | | | | | | [facility] | | | | | | [facility] | | | | | | CENTER - | | | | | | LABORATORY | | + + + + + + | Hypochromas | Slight (A)Comment: 1+ | (none) | [facility] | | | ia | | | [facility] | | | | | | MEDICAL | | | | | | CENTER - | | | | | | LABORATORY | | + + + + + + | MICRO | 1+ | | [facility] | | | COMMENTS | | | [facility] | | | | | | MEDICAL | | | | | | CENTER - | | | | | | LABORATORY | | + + + + + + | MACROSCOPIC | 1+ | | [facility] | | | EXAM | | | [facility] | | | REPORT | | | MEDICAL | | | [...] [address] | [place] | [phone] | | [facility] | | [address] | | | - LABORATORY | | | | + + + + + Comprehensive Metabolic Panel (09/08/2014) + +-------+ + + + | Component | Value | Ref Range | Performed | Pathologist | | | | | At | Signature | + +-------+ + + + | Anion Gap | 7 | 3 - 12 mmol/L | [facility] | | | | | [facility] | | | | | MEDICAL | | | | | | CENTER - | | | | | | LABORATORY | | + +-------+ + + + | Bun/Creatin | 17.58 | | [facility] | | | ine | | | [facility] | | [...] | [address] | [place] | [phone] | | [facility] | | [address] | | | - LABORATORY | | | | + + + + + External Lab: BUN (09/08/2014) + +--------+ + + + | Component | Value | Ref Range | Performed | Pathologist | | | | | At | Signature | + +--------+ + + + | BUN, | 32 (A) | 7 - 18 | EXTERNAL | | | External | | | LAB | | + +--------+ + + + + + | Resulting Agency Comment | + + | [facility] | + + + +---------+ + + | Performing | Address | City/State/Zipcode | Phone Number | | Organization | | | | + +---------+ + + | EXTERNAL LAB | | | | + +---------+ + + External Lab: Glucose (09/08/2014) + +---------+ + + + | Component | Value | Ref Range | Performed | Pathologist | | | | | At | Signature | + +---------+ + + + | Glucose, | 177 (A) | 70 - 100 | EXTERNAL | | | External | | | LAB | | + +---------+ + + + + + | Resulting Agency Comment | + + | [facility] | + + + +---------+ + + | Performing | Address | City/State/Zipcode | Phone Number | | Organization | | | | + +---------+ + + | EXTERNAL LAB | | | | + +---------+ + + External Lab: ALT (09/08/2014) + +-------+ + + + | Component | Value | Ref Range | Performed | Pathologist | | | | | At | Signature | + +-------+ + + + | ALT, | 20 | 10 - 48 | EXTERNAL | | | External | | | LAB | | + +-------+ + + + + + | Resulting Agency Comment | + + | [facility] | + + + +---------+ + + | Performing | Address | City/State/Zipcode | Phone Number | | Organization | | | | + +---------+ + + | EXTERNAL LAB | | | | + +---------+ + + External Lab: AST (09/08/2014) + +-------+ + + + | Component | Value | Ref Range | Performed | Pathologist | | | | | At | Signature | + +-------+ + + + | AST, | 22 | 10 - 42 | EXTERNAL | | | External | | | LAB | | + +-------+ + + + + + | Resulting Agency Comment | + + | [facility] | + + + +---------+ + + | Performing | Address | City/State/Zipcode | Phone Number | | Organization | | | | + +---------+ + + | EXTERNAL LAB | | | | + +---------+ + + External Lab: Alkaline Phosphatase (09/08/2014) + +-------+ + + + | Component | Value | Ref Range | Performed | Pathologist | | | | | At | Signature | + +-------+ + + + | ALP, | 50 | 32 - 92 | EXTERNAL | | | External | | | LAB | | + +-------+ + + + + + | Resulting Agency Comment | + + | [facility] | + + + +---------+ + + | Performing | Address | City/State/Zipcode | Phone Number | | Organization | | | | + +---------+ + + | EXTERNAL LAB | | | | + +---------+ + + External Lab: Bilirubin, Total (09/08/2014) + +-------+ + + + | Component | Value | Ref Range | Performed | Pathologist | | | | | At | Signature | + +-------+ + + + | Bilirubin, | 0.7 | 0.2 - 1.2 | EXTERNAL | | | Total, | | | LAB | | | External | | | | | + +-------+ + + + + + | Resulting Agency Comment | + + | [facility] | + + + +---------+ + + | Performing | Address | City/State/Zipcode | Phone Number | | Organization | | | | + +---------+ + + | EXTERNAL LAB | | | | + +---------+ + + External Lab: Albumin (09/08/2014) + +-------+ + + + | Component | Value | Ref Range | Performed | Pathologist | | | | | At | Signature | + +-------+ + + + | Albumin, | 3.8 | 3.5 - 5 | EXTERNAL | | | External | | | LAB | | + +-------+ + + + + + | Resulting Agency Comment | + + | [facility] | + + + +---------+ + + | Performing | Address | City/State/Zipcode | Phone Number | | Organization | | | | + +---------+ + + | EXTERNAL LAB | | | | + +---------+ + + External Lab: Protein, Total (09/08/2014) + +-------+ + + + | Component | Value | Ref Range | Performed | Pathologist | | | | | At | Signature | + +-------+ + + + | Protein, | 7.5 | 6 - 8.1 | EXTERNAL | | | Total, | | | LAB | | | External | | | | | + +-------+ + + + + + | Resulting Agency Comment | + + | [facility] | + + + +---------+ + + | Performing | Address | City/State/Zipcode | Phone Number | | Organization | | | | + +---------+ + + | EXTERNAL LAB | | | | + +---------+ + + External Lab: Calcium (09/08/2014) + +-------+ + + + | Component | Value | Ref Range | Performed | Pathologist | | | | | At | Signature | + +-------+ + + + | Calcium, | 9.1 | 8.4 - 10.5 | EXTERNAL | | | External | | | LAB | | + +-------+ + + + + + | Resulting Agency Comment | + + | [facility] | + + + +---------+ + + | Performing | Address | City/State/Zipcode | Phone Number | | Organization | | | | + +---------+ + + | EXTERNAL LAB | | | | + +---------+ + + External Lab: Carbon Dioxide (09/08/2014) + +-------+ + + + | Component | Value | Ref Range | Performed | Pathologist | | | | | At | Signature | + +-------+ + + + | Carbon | 22 | 21 - 31 | EXTERNAL | | | Dioxide, | | | LAB | | | External | | | | | + +-------+ + + + + + | Resulting Agency Comment | + + | [facility] | + + + +---------+ + + | Performing | Address | City/State/Zipcode | Phone Number | | Organization | | | | + +---------+ + + | EXTERNAL LAB | | | | + +---------+ + + External Lab: Chloride (09/08/2014) + +---------+ + + + | Component | Value | Ref Range | Performed | Pathologist | | | | | At | Signature | + +---------+ + + + | Chloride, | 108 (A) | 98 - 107 | EXTERNAL | | | External | | | LAB | | + +---------+ + + + + + | Resulting Agency Comment | + + | [facility] | + + + +---------+ + + | Performing | Address | City/State/Zipcode | Phone Number | | Organization | | | | + +---------+ + + | EXTERNAL LAB | | | | + +---------+ + + External Lab: Potassium (09/08/2014) + +-------+ + + + | Component [...] Resulting Agency Comment | + + | [facility] | + + + +---------+ + + | Performing | Address | City/State/Zipcode | Phone Number | | Organization | | | | + +---------+ + + | EXTERNAL LAB | | | | + +---------+ + + External Lab: Sodium (09/08/2014) + +-------+ + + + | Component [...] Resulting Agency Comment | + + | [facility] | + + + +---------+ + + | Performing | Address | City/State/Zipcode | Phone Number | | Organization | | | | + +---------+ + + | EXTERNAL LAB | | | | + +---------+ + + External Lab: Urinalysis (09/08/2014) + + + + + + | Component | Value | Ref Range | Performed | Pathologist | | | | | At | Signature | + + + + + + | UA Blood, | 2+ | | EXTERNAL | | | External | | | LAB | | + + + + + + | UA Glucose, | TR | | EXTERNAL | | | External | | | LAB | | + + + + + + | UA Ketones, | Negative | | EXTERNAL | | | External | | | LAB | | + + + + + + | UA Ph, | 5 | 5 - 8 | EXTERNAL | | | External | | | LAB | | + + + + + + | UA | 2+ | | EXTERNAL | | | Proteins, | | | LAB | | | External | | | | | + + + + + + | UA RBC, | 0-2 | | EXTERNAL | | | External | | | LAB | | + + + + + + | UA Specific | 1.020 | 1.01 - 1.03 | EXTERNAL | | | [place], | | | LAB | | | External | | | | | + + + + + + | UA | Negative | | EXTERNAL | | | Leukocyte | | | LAB | | | Esterase, | | | | | | External | | | | | + + + + + + + + | Resulting Agency Comment | + + | [facility] | + + + +---------+ + + | Performing | Address | City/State/Zipcode | Phone Number | | Organization | | | | + +---------+ + + | EXTERNAL LAB | | | | + +---------+ + + External Lab: CBC (09/08/2014) + + + + + + | Component | Value | Ref Range | Performed | Pathologist | | | | | At | Signature | + + + + + + | WBC, | 13.3 (A) | 4.3 - 11 | EXTERNAL | | | External | | | LAB | | + + + + + + | HGB, | 10.3 (A) | 12 - 16 | EXTERNAL | | | External | | | LAB | | + + + + + + | HCT, | 34 (A) | 38 - 47 | EXTERNAL | | | External | | | LAB | | + + + + + + | PLT, | 291 | 150 - 375 | EXTERNAL | | | External | | | LAB | | + + + + + + | RBC, | 5.13 | 4.2 - 5.4 | EXTERNAL | | | External | | | LAB | | + + + + + + | MCV, | 66 (A) | 82 - 100 | EXTERNAL | | | External | | | LAB | | + + + + + + | RDW, | 20.1 (A) | 11.5 - 16 | EXTERNAL | | | External | | | LAB | | + + + + + + + + | Resulting Agency Comment | + + | [facility] | + + + +---------+ + + | Performing | Address | City/State/Zipcode | Phone Number | | Organization | | | | + +---------+ + + | EXTERNAL LAB | | | | + +---------+ + + External Lab: eGFR (09/08/2014) + +--------+ + + + | Component | Value | Ref Range | Performed | Pathologist | | | | | At | Signature | + +--------+ + + + | eGFR, | 29 (A) | 60 - 99,999 | EXTERNAL | | | External | | | LAB | | + +--------+ + + + + + | Specimen | + + | Blood specimen | | (specimen) | + + + + | Resulting Agency Comment | + + | [facility] | + + + +---------+ + + | Performing | Address | City/State/Zipcode | Phone Number | | Organization | | | | + +---------+ + + | EXTERNAL LAB | | | | + +---------+ + + External Lab: Creatinine (09/08/2014) + +---------+ + + + | Component | Value | Ref Range | Performed | Pathologist | | | | | At | Signature | + +---------+ + + + | Creatinine, | 1.8 (A) | 0.6 - 1.3 | EXTERNAL | | | External | | | LAB | | + +---------+ + + + + + | Specimen | + + | Blood specimen | | (specimen) | + + + + | Resulting Agency Comment | + + | [facility] | + + + +---------+ + + | Performing | Address | City/State/Zipcode | Phone Number | | Organization | | | | + +---------+ + + | EXTERNAL LAB | | | | + +---------+ + + CBC with Differential (03/11/2014) + + + + + + | Component | Value | Ref Range | Performed | Pathologist | | | | | At | Signature | + + + + + + | % Bands | 0 | 0 - 7 | | | + + + + + + | MCH | 21.0 (A) | 27.0 - 33.0 pg | | | + + + + + + | MCHC | 30.0 | 30.0 - 36.0 % | | | + + + + + + | % Basophils | 1.8 | 0.0 - 2.0 % | | | + + + + + + + + | Specimen | + + | Blood specimen | | (specimen) | + + Comprehensive Metabolic Panel (03/11/2014) + +-------+ + + + | Component | Value | Ref Range | Performed | Pathologist | | | | | At | Signature | + +-------+ + + + | Anion Gap | 14 | 7 - 21 mmol/L | [facility] | | | | | | [facility] | | | | | | [facility] | | | | | | CENTER - | | | | | | LABORATORY | | + +-------+ + + + | Bun/Creatin | 15.9 | 6 - 28.6 | [facility] | | | ine | | | [facility] | | | | | | MEDICAL | | | | | | CENTER - | | | | | | LABORATORY | | + +-------+ + + + | Globulin | 3.2 | 1.8 - 3.5 | [facility] | | | | | | [facility] | | | | | | MEDICAL | | | | | | CENTER - | | | | | | LABORATORY | | + +-------+ + + + | Albumin/Lissette | 1.3 | 1.1 - 2.4 | [facility] | | | bulin Ratio [...] ST. | [address] | [place] | | | [facility] | | [id number] | | | - LABORATORY | | | | + + + + + External Lab: BUN (03/11/2014) + +--------+ + + + | Component [...] Resulting Agency Comment | + + | [facility] | + + + +---------+ + + | Performing | Address | City/State/Zipcode | Phone Number | | Organization | | | | + +---------+ + + | EXTERNAL LAB | | | | + +---------+ + + External Lab: Glucose (03/11/2014) + +---------+ + + + | Component | Value | Ref Range | Performed | Pathologist | | | | | At | Signature | + +---------+ + + + | Glucose, | 114 (A) | 70 - 100 | EXTERNAL | | | External | | | LAB | | + +---------+ + + + + + | Resulting Agency Comment | + + | [facility] | + + + +---------+ + + | Performing | Address | City/State/Zipcode | Phone Number | | Organization | | | | + +---------+ + + | EXTERNAL LAB | | | | + +---------+ + + External Lab: ALT (03/11/2014) + +-------+ + + + | Component | Value | Ref Range | Performed | Pathologist | | | | | At | Signature | + +-------+ + + + | ALT, | 11 | 7 - 52 | EXTERNAL | | | External | | | LAB | | + +-------+ + + + + + | Resulting Agency Comment | + + | [facility] | + + + +---------+ + + | Performing | Address | City/State/Zipcode | Phone Number | | Organization | | | | + +---------+ + + | EXTERNAL LAB | | | | + +---------+ + + External Lab: AST (03/11/2014) + +--------+ + + + | Component | Value | Ref Range | Performed | Pathologist | | | | | At | Signature | + +--------+ + + + | AST, | 12 (A) | 13 - 39 | EXTERNAL | | | External | | | LAB | | + +--------+ + + + + + | Resulting Agency Comment | + + | [facility] | + + + +---------+ + + | Performing | Address | City/State/Zipcode | Phone Number | | Organization | | | | + +---------+ + + | EXTERNAL LAB | | | | + +---------+ + + External Lab: Alkaline Phosphatase (03/11/2014) + +-------+ + + + | Component | Value | Ref Range | Performed | Pathologist | | | | | At | Signature | + +-------+ + + + | ALP, | 45 | 30 - 128 | EXTERNAL | | | External | | | LAB | | + +-------+ + + + + + | Resulting Agency Comment | + + | [facility] | + + + +---------+ + + | Performing | Address | City/State/Zipcode | Phone Number | | Organization | | | | + +---------+ + + | EXTERNAL LAB | | | | + +---------+ + + External Lab: Bilirubin, Total (03/11/2014) + +-------+ + + + | Component | Value | Ref Range | Performed | Pathologist | | | | | At | Signature | + +-------+ + + + | Bilirubin, | 0.4 | 0 - 1.2 | EXTERNAL | | | Total, | | | LAB | | | External | | | | | + +-------+ + + + + + | Resulting Agency Comment | + + | [facility] | + + + +---------+ + + | Performing | Address | City/State/Zipcode | Phone Number | | Organization | | | | + +---------+ + + | EXTERNAL LAB | | | | + +---------+ + + External Lab: Albumin (03/11/2014) + +-------+ + + + | Component | Value | Ref Range | Performed | Pathologist | | | | | At | Signature | + +-------+ + + + | Albumin, | 4.3 | 3.5 - 5 | EXTERNAL | | | External | | | LAB | | + +-------+ + + + + + | Resulting Agency Comment | + + | [facility] | + + + +---------+ + + | Performing | Address | City/State/Zipcode | Phone Number | | Organization | | | | + +---------+ + + | EXTERNAL LAB | | | | + +---------+ + + External Lab: Protein, Total (03/11/2014) + +-------+ + + + | Component | Value | Ref Range | Performed | Pathologist | | | | | At | Signature | + +-------+ + + + | Protein, | 7.5 | 6 - 8 | EXTERNAL | | | Total, | | | LAB | | | External | | | | | + +-------+ + + + + + | Resulting Agency Comment | + + | [facility] | + + + +---------+ + + | Performing | Address | City/State/Zipcode | Phone Number | | Organization | | | | + +---------+ + + | EXTERNAL LAB | | | | + +---------+ + + External Lab: Calcium (03/11/2014) + +-------+ + + + | Component | Value | Ref Range | Performed | Pathologist | | | | | At | Signature | + +-------+ + + + | Calcium, | 8.9 | 8.4 - 10.2 | EXTERNAL | | | External | | | LAB | | + +-------+ + + + + + | Resulting Agency Comment | + + | [facility] | + + + +---------+ + + | Performing | Address | City/State/Zipcode | Phone Number | | Organization | | | | + +---------+ + + | EXTERNAL LAB | | | | + +---------+ + + External Lab: Carbon Dioxide (03/11/2014) + +--------+ + + + | Component | Value | Ref Range | Performed | Pathologist | | | | | At | Signature | + +--------+ + + + | Carbon | 18 (A) | 19 - 31 | EXTERNAL | | | Dioxide, | | | LAB | | | External | | | | | + +--------+ + + + + + | Resulting Agency Comment | + + | [facility] | + + + +---------+ + + | Performing | Address | City/State/Zipcode | Phone Number | | Organization | | | | + +---------+ + + | EXTERNAL LAB | | | | + +---------+ + + External Lab: Chloride (03/11/2014) + +-------+ + + + | Component | Value | Ref Range | Performed | Pathologist | | | | | At | Signature | + +-------+ + + + | Chloride, | 105 | 95 - 112 | EXTERNAL | | | External | | | LAB | | + +-------+ + + + + + | Resulting Agency Comment | + + | [facility] | + + + +---------+ + + | Performing | Address | City/State/Zipcode | Phone Number | | Organization | | | | + +---------+ + + | EXTERNAL LAB | | | | + +---------+ + + External Lab: Potassium (03/11/2014) + +-------+ + + + | Component | Value | Ref Range | Performed | Pathologist | | | | | At | Signature | + +-------+ + + + | Potassium, | 4.0 | 3.6 - 5.1 | EXTERNAL | | | External | | | LAB | | + +-------+ + + + + + | Resulting Agency Comment | + + | [facility] | + + + +---------+ + + | Performing | Address | City/State/Zipcode | Phone Number | | Organization | | | | + +---------+ + + | EXTERNAL LAB | | | | + +---------+ + + External Lab: Sodium (03/11/2014) + +-------+ + + + | Component | Value | Ref Range | Performed | Pathologist | | | | | At | Signature | + +-------+ + + + | Sodium, | 133 | 132 - 143 | EXTERNAL | | | External | | | LAB | | + +-------+ + + + + + | Resulting Agency Comment | + + | [facility] | + + + +---------+ + + | Performing | Address | City/State/Zipcode | Phone Number | | Organization | | | | + +---------+ + + | EXTERNAL LAB | | | | + +---------+ + + External Lab: Vitamin D, 25-Hydroxy (03/11/2014) + +--------+ + + + | Component | Value | Ref Range | Performed | Pathologist | | | | | At | Signature | + +--------+ + + + | Vitamin D, | 25 (A) | 30 - 100 | EXTERNAL | | | 25-Hydroxy, | | | LAB | | | External | | | | | + +--------+ + + + + + | Specimen | + + | Blood specimen | | (specimen) | + + + + | Resulting Agency Comment | + + | [facility] | + + + +---------+ + + | Performing | Address | City/State/Zipcode | Phone Number | | Organization | | | | + +---------+ + + | EXTERNAL LAB | | | | + +---------+ + + External Lab: CBC (03/11/2014) + + + + + + | Component | Value | Ref Range | Performed | Pathologist | | | | | At | Signature | + + + + + + | WBC, | 10.6 | 4.5 - 11 | EXTERNAL | | | External | | | LAB | | + + + + + + | HGB, | 10.6 (A) | 12 - 16 | EXTERNAL | | | External | | | LAB | | + + + + + + | HCT, | 36.2 | 35 - 45 | EXTERNAL | | | External | | | LAB | | + + + + + + | PLT, | 406 | 140 - 440 | EXTERNAL | | | External | | | LAB | | + + + + + + | Neutrophils | 64.2 | 39 - 80 | EXTERNAL | | | %, | | | LAB | | | External | | | | | + + + + + + | Lymphocytes | 23.4 (A) | 24 - 44 | EXTERNAL | | | %, | | | LAB | | | External | | | | | + + + + + + | Monocytes | 7.5 | 0 - 12 | EXTERNAL | | | %, External | | | LAB | | + + + + + + | Eosinophils | 3.1 | 0 - 6 | EXTERNAL | | | %, | | | LAB | | | External | | | | | + + + + + + | RBC, | 5.07 | 3.8 - 5.1 | EXTERNAL | | | External | | | LAB | | + + + + + + | MCV, | 69 (A) | 81 - 99 | EXTERNAL | | | External | | | LAB | | + + + + + + | RDW, | 19.6 (A) | 10.5 - 15 | EXTERNAL | | | External | | | LAB | | + + + + + + + + | Resulting Agency Comment | + + | [facility] | + + + +---------+ + + | Performing | Address | City/State/Zipcode | Phone Number | | Organization | | | | + +---------+ + + | EXTERNAL LAB | | | | + +---------+ + + External Lab: Creatinine (03/11/2014) + + + + + + | Component | Value | Ref Range | Performed | Pathologist | | | | | At | Signature | + + + + + + | Creatinine, | 1.57 (A) | 0.7 - 1.33 | EXTERNAL | | | External | | | LAB | | + + + + + + + + | Specimen | + + | Blood specimen | | (specimen) | + + + + | Resulting Agency Comment | + + | [facility] | + + + +---------+ + + | Performing | Address | City/State/Zipcode | Phone Number | | Organization | | | | + +---------+ + + | EXTERNAL LAB | | | | + +---------+ + + documented in this encounter Visit Diagnoses Not on filedocumented in this encounter"
--- OUTSIDE RECORDS SUMMARY | ~2019-11-29 | XMS | Encounter Summary ---
Demographics + + + | Address | [address] | | | [place] [address] | + + + | Home Phone | | + + + | Preferred Language | Unknown | + + + | Marital Status | | + + + | Confucianism Affiliation | Unknown | + + + | Race | Unknown | + + + | Ethnic Group | Unknown | + + + Author + + + | Author | [facility] | | | and [place] | + + + | Organization | [facility] | | | and [...] Team Providers + +------+ + | Care Student Support Advisor Name | Role | Phone | [...] Description | +--------+---------+ + + + | 08/07/ | Office | [facility] | Nimeshjaxxiao Leonoribrahima, | Essential | | 2018 | Visit | CARDIOLOGY [address] | [address] [place] | hypertension | | | | [place], | [place], | (Primary Dx); | | | | [place] [address] | [place] [address] | Coronary artery | | | | [phone] | [phone] | disease, angina | | | | | | presence | | | | | | unspecified, | | | | | | unspecified vessel | | | | | | or lesion type, | | | | | | unspecified whether | | | | | | [place] or | | | | | | transplanted heart | +--------+---------+ + + + Social History [...] + + + | Blood Pressure | 168/110 | 08/07/2017 3:53 PM | left | | | | PDT | | + + + + + | Pulse | 107 | 08/07/2017 3:46 PM | | | | | PDT | | + + + + + | Temperature | - | - | | + + + + + | Respiratory Rate | 18 | 08/07/2017 3:46 PM | | | | | PDT | | + + + + + | Oxygen Saturation | - | - | | + + + + + | Inhaled Oxygen | - | - | | | Concentration | | | | + + + + + | Weight | 99.9 kg (220 lb 3.8 | 08/07/2017 3:46 PM | | | | oz) | PDT | | + + + + + | Height | 157.5 cm (5' 2") | 08/07/2017 3:46 PM | | | | | PDT | | + + + + + | Body Mass Index | 40.28 | 08/07/2017 3:46 PM | | | | | PDT | | + + + + + documented in this encounter Patient Instructions Patient Instructions Guerda Delaney RN - 08/07/2017 3:30 PM PDT Refilled medications Follow up appointment: 6 months Provider: Maryann Rouse MD Date: Check-In Time: documented in this encounter Progress Notes Maryann Rouse MD - 08/07/2017 3:30 PM PDTFormatting of this note might be different f rom the original. PATIENT NAME: Jessie Casarez : 1965: AGE: 52 y.o. PRIMARY CARE: Kyle Richey DO OUTPATIENT FOLLOW UP VISIT Date of Service: 08/07/2017 HISTORY OF PRESENT ILLNESS: Jessie Casarez is a 52 y.o. female with a history of coronary artery disease involving sarah danielle coronary artery of [place] heart without angina pectoris post non-STEMI post PTCA and carolyn nt of RCA by Dr. Bell on 11/23/15, type II diabetes, essential hypertension, mixed hyperlipi demia, obesity, stage III chronic kidney disease, noncompliant, suspecting obstructive sleep apnea. Sheis being seen today for follow up coronary artery disease. She was last seen 11/28/2016 at which time she was to stop Effient and return in 6 months. T tomasa, patient has been experiencing high blood pressure. She has been off all medications ex cept lisinopril. She ran out of refills in [place]. She also expresses having some minimal ch est pain for the past 3 days. Patient is physically inactive due to the weather. Patient den ies breathlessness. There is no palpitations, dizziness or lightheadedness. There is no ankl e or leg swelling. Patient can sleep on one pillow at night without difficulty breathing. MEDICAL, SURGICAL, AND PERSONAL HISTORY Past Medical, Surgical, Family, and Social History are reviewed in EPIC. CURRENT PROBLEMS Patient Active Problem List Diagnosis Extrapulmonary TB (tuberculosis) RA (rheumatoid arthritis) Pleural effusion Coronary artery disease involving swinomish coronary artery of sw[place] heart without angina pectoris CKD (chronic kidney [...] the skin ever y 7 days. albuterol (PROAIR HFA) 90 mcg/puff inhaler Inhale 2 puffs into the lungs every 4 hours as needed for Wheezing or Shortness of Breath. aspirin 81 MG tablet Take 81 mg by mouth Daily. dulaglutide (TRULICITY) 1.5 mg/0.5 mL injection Inject 1.5 mg under the skin Once a wee k. insulin degludec (TRESIBA FLEXTOUCH) 100 units/mL injection Inject 25 Units under the s kin every morning. lisinopril (PRINIVIL, ZESTRIL) 10 mg tablet Take 10 mg by mouth Daily. nitroglycerin (NITROSTAT) 0.4 mg SL tablet Take one tablet under tongue as needed for c hest pain, may repeat every 5 minutes up to 3 doses. If no relief after 3rd dose, call 911 90 tablet 3 oxyCODONE (ROXICODONE) 5 mg tablet as needed. 0 sulfaSALAzine (AZULFIDINE) 500 MG EC tablet 1,000 mg 2 times daily. 0 tiotropium (SPIRIVA) 18 mcg inhalation capsule Inhale 18 mcg into the lungs Daily. No current facility-administered medications for this visit. ALLERGIES Allergies Allergen Reactions Albuterol Other (See Comments) and Itching Gives her a headache Metformin ROS Review of Systems Constitutional: Negative for chills, diaphoresis, fever, malaise/fatigue and weight loss. HENT: Negative for congestion, hearing loss, nosebleeds and tinnitus. Eyes: Negative for blurred vision and double vision. Respiratory: Negative for shortness of breath. Cardiovascular: Negative for chest pain, palpitations and leg swelling. Gastrointestinal: Negative for blood in stool, constipation, diarrhea, nausea and vomiting. Genitourinary: Negative for dysuria, frequency, hematuria and urgency. Musculoskeletal: Negative for back pain, falls, joint pain, myalgias and neck pain. Skin: Negative for itching and rash. Neurological: Negative for dizziness, tingling, tremors, speech change, seizures, loss of c onsciousness and weakness. Endo/Heme/Allergies: Does not bruise/bleed easily. Psychiatric/Behavioral: Negative for memory loss. The patient is not nervous/anxious and do es not have insomnia. OBJECTIVE: PHYSICAL EXAM BP (!) 168/110 Comment: left | Pulse 107 | Resp 18 | Ht 1.575 m (5' 2") | Wt 99.9 kg (22 0 lb 3.8 oz) | BMI 40.28 kg/m Physical Exam Constitutional: She appears well-developed [...] e xhibit a depressed mood. ECG: Sinus tachycardia LAB RESULTS reviewed during visit today primarily from [facility]: LIPID Lab Results Component Value Date CHOL 257 (H) 11/20/2015 TRIG 304 (H) 11/20/2015 HDL 50 11/20/2015 LDL 146 (H) 11/20/2015 CHOLHDL 5.1 11/20/2015 LDLEX 109 (A) 10/28/2016 HDLEX 48.5 10/28/2016 TRIGEX 307 (A) 10/28/2016 CHOLEX 219 (A) 10/28/2016 CHEMISTRY Lab Results Component Value Date GLU 144 (H) 03/25/2016 GLUEX 128 (A) 06/06/2017 NA 138 03/25/2016 NAEX 135 06/06/2017 K 4.7 03/25/2016 KEX 3.9 06/06/2017 CL 111 (H) 03/25/2016 CLEX 103 06/06/2017 CO2 20 (L) 03/25/2016 CO2EX 23 06/06/2017 CALCIUM 8.4 03/25/2016 ALKPHOS 69 11/20/2015 AST 46 (H) 11/20/2015 ASTEX 26 06/06/2017 ALT 40 11/20/2015 ALTEX 22 06/06/2017 BILITOT 0.6 11/20/2015 CREA 1.85 (H) 03/25/2016 BUN 29 (H) 03/25/2016 EGFREX 36 06/06/2017 CREEX 1.5 (A) 06/06/2017 HEMATOLOGY Lab Results Component Value Date WBC 14.6 (H) 11/24/2015 WBCEX 12.9 (A) 06/06/2017 HGB 7.7 (L) 11/24/2015 HGBEX 8.6 (A) 06/06/2017 HCT 26.7 (L) 11/24/2015 HCTEX 29.8 (A) 06/06/2017 PLT 258 11/24/2015 PLTEX 259 06/06/2017 I reviewed records from Kyle Richey MD for office visit on 06/06/2017. Above data and testing is reviewed this visit; testing below is historical data unless othe rwise specified. ASSESSMENT: 1. Coronary artery disease involving swinomish coronary artery of sw[place] heart without angina pectoris/non-STEMI: A. Post non-STEMI. Left heart cath on 11/21/12 showed 95% stenosis of the LCx, 20-30% stenosis of the proximal RCA. Status post PTCA and stents x 2 of the L Cx.Since that time, she saw a vice president of manufacturing for couple times and loss of follow-up. B. Echocardiogram on 11/20/15 showed Mild biatrial dilatation. Maria l left ventricular size, wall thickness and motion. Preserved left ventricular systolic func tion. LVEF is 60%. Normal valvular structure. Normal right-sided pressure. Normal IVC with n ormal respiratory collapse. C. She started having a chest pain on 11/17/15 while she was working at the [employer]. She described it as a chest pressure 7/10 that radiated across the chest wa ll and was associated some shortness of breath. No palpitation, dizziness or lightheadedne ss. No sweating. She waited until 11/19/15 when she had recurrent bad chest pain that too k her to the ED of [facility] in [place]. She was found to have blood sugar of almost 1000 and troponin of 0.5. She was transferred to [facility]. D. Left heart cath on [...] modification and Medical management. H. Today, patient has been experiencing high blood pressure. She alberto s been off all medications except lisinopril for 2 months. She ran out of refills in [place]. She also expresses having some minimal chest pain for the past 3 days. Patient is physicall y inactive due to the weather. Patient denies breathlessness. There is no palpitations, dizz iness or lightheadedness. There is no ankle or leg swelling. Patient can sleep on one pillow at night without difficulty breathing. She is in a class II of [place] [employer] functional class.There is no signs or symptoms of overt congestive heart failure. There is no fluid retention on physical examina tion. 2. Essential hypertension with goal blood pressure less than 130/80: A. Today's blood pressure is very elevated. She has been off of her medications for the past 2 months. 3. Type II diabetes/noncompliant with medication A.She is known to have history of type II diabetes. She was presc ribed on metformin 500 mg twice a day starting in July,.Patient has not been seen by endocrinology yet, but she has been monitoring blood sugars and has met with diabetic educa tor. Mendoza. She is now on insulin. 4. Rheumatoid arthritis A. She has a history of rheumatoid arthritis and received Humira on ce weekly by Dr. Castillo in [place]. 5.Acute kidney injury on top of the stage III chronic kidney disease A. She also seen a crime specialist at [facility] but [...] 4/8 on stop bag questionnaire. PLAN: 1. Refill metoprolol, imdur, and lipitor today. 2. I recommend a therapeutic lifestyle change including walking 30 minutes a day, choosing healthy choices of diet , including DASH diet and weight reduction. 3. Follow-up 6 months, or sooner with concerns. I, Cris Sandoval, am acting as a scribe on behalf of, and in the presence of Maryann Rouse MD. I have reviewed and edited this note. Cris Sandoval CMA 08/07/2017 I, Maryann Rouse MD, personally performed the services described in this documentation, as scribed in my presence and it is both accurate and complete. Cris Sandoval CMA 8 15:58 Electronically signed by: Maryann Rouse MD [facility] 08/07/2017 Portions of this chart may have been created with [employer] voice recognition software. Occasi onal wrong-word or [...] | ECG 12 LEAD | Routin | 08/08/2017 | Essential | Results for this | | | e | 9:18 AM | hypertension | procedure are in the | | | | PDT | Coronary artery | results section. | | | | | disease, angina | | | | | | presence | | | | | | unspecified, | | | | | | unspecified vessel | | | | | | or lesion type, | | | | | | unspecified whether | | | | | | swinom[place] or | | | | | | transplanted heart | | + +--------+ + + + documented in this encounter Results ECG 12 lead (08/08/2017 9:18 AM PDT) + + + + + + | Component | Value | Ref Range | Performed | Pathologist | | | | | At | Signature | + + + + + + | VENTRICULAR | 107 | BPM | [facility] | | | RATE EKG | | | | | + + + + + + | ATRIAL RATE | 107 | BPM | [facility] | | [...] + + + + | Q-T | 445 | ms | [facility] | | [...] + + + | T AXIS | 102 | degrees | [facility] | | + + + + + + | INTERPRETAT | Sinus tachycardiaT wave | | [facility] | | | ION TEXT | abnormality, consider | | | | | | lateral ischemiaAbnormal | | | | | | ECGWhen compared with | | | | | | ECG of 22-FEB-2016 | | | | | | 14:13,T wave inversion | | | | | | now evident in Lateral | | | | | | leadsConfirmed by | | | | | | MARYANN ROUSE MD | | | | | | ([id number]) on 08/08/2017 | | | | | | 9:18:31 AM | | | | + + [...] + | Diagnosis | + + | Essential hypertension - Primary Unspecified essential hypertension | + + | Coronary artery disease, angina presence unspecified, unspecified vessel or lesion | | type, unspecified whether swinomish or transplanted heart | + + documented in this encounter
--- OUTSIDE RECORDS SUMMARY | ~2019-11-29 | XMS | Encounter Summary ---
Demographics + + + | Address | [address] | | | [place] [address] | + + + | Home Phone | | + + + | Preferred Language | Unknown | + + + | Marital Status | | + + + | Latter Day Affiliation | Unknown | + + + | Race | Unknown | + + + | Ethnic Group | Unknown | + + + Author + + + | Author | [facility] | | | and [place] | + + + | Organization | [facility] | [...] Team Providers + +------+ + | Care Farm Equipment Mechanic Name | Role | Phone | + +------+ + | Kyle Richey DO | PCP | | + +------+ + Encounter Details +--------+ + + + + | Date | Type | Department | Care Team | Description | +--------+ + + + + | 11/20/ | Education | [facility] | Barb Varela | Type 2 diabetes | | 2016 | | [facility] | M, RN Need updated | mellitus with other | | | | EDUCATION [address] | address | specified | | | | [place], | | complication (HCC) | | | | [place] [address] | | (Primary Dx) | | | | [phone] | | | +--------+ + + + [...] + | Diagnosis | + + | Type 2 diabetes mellitus with other specified complication (HCC) - Primary | + + documented in this encounter"
--- OUTSIDE RECORDS SUMMARY | ~2019-11-29 | XMS | Encounter Summary ---
Demographics + + + | Address | [address] | | | [place] [address] | + + + | Home Phone | | + + + | Preferred Language | Unknown | + + + | Marital Status | | + + + | Baptism Affiliation | Unknown | + + + | Race | Unknown | + + + | Ethnic Group | Unknown | + + + Author + + + | Author | [facility] | | | and [place] | + + + | Organization | [facility] | | | [...] Team Providers + +------+ + | Care Pattern Layout Worker Name | Role | Phone | + +------+ + | Kyle Richey DO | PCP | | + +------+ + Reason for Visit Diagnostic/Screening (Routine) +--------+--------+ + + + + | Status | Reason | Specialty | Diagnoses / | Referred By | Referred To | | | | | Procedures | Contact | Contact | +--------+--------+ + + + + | Closed | | Radiology | Diagnoses | | [facility] | | | | | Coronary | [place], | Medicine | | | | | artery | [facility] | [address] | | | | | disease | [address] | [place], | | | | | involving | [place] | [place] | | | | | [place] | [place], | [address] | | | | | coronary | [place] | Phone: | | | | | artery of | [address] | [phone] | | | | | [place] heart | Phone: | Fax: | | | | | without | [phone] | [phone] | | | | | angina | Fax: | | | | | | pectoris | [phone] | | | | | | Procedures | | | | | | | NM Nuclear | | | | | | | Stress Test | | | | | | | (Vasodilator | | | | | | | ) NM | | | | | | | Nuclear | | | | | | | Stress Test | | | | | | | (Exercise) | | | | | | | CHG | | | | | | | MYOCARDIAL | | | | | | | SPECT | | | | | | | MULTIPLE | | | | | | | STUDIES VA | | | | | | | CV STRS TST | | | | | | | XERS&/OR RX | | | | | | | CONT ECG W/O | | | | | | | I&R VA | | | | | | | CARDIAC | | | | | | | STRESS | | | | | | | TST,INTERP/R | | | | | | | EPT ONLY | | | +--------+--------+ + + + + Encounter Details +--------+ + + + + | Date | Type | Department | Care Team | Description | +--------+ + + + + | 03/08/ | Hospital | [facility] | Gabi, | Coronary artery | | 2015 | Encounter | MED CTR NUCLEAR | LUIZ Chun [address] | disease involving | | | | MEDICINE [address] | [place], | [place] coronary | | | | [place], | [place] [address] | artery of [place] | | | | [place] [address] | [phone] | heart without angina | | | | [phone] | | pectoris | +--------+ + + + + Social [...] + + + | Blood Pressure | - | - | | + + + + + | Pulse | - | - | | + [...] Weight | 94.8 kg (209 lb) | 03/08/2016 9:00 AM | | | | | PDT | | + + + + + | Height | - | - | | + + + + + | Body Mass Index | 38.23 | 02/22/2016 2:13 PM | | | | | PDT | | + + + + + documented in this encounter Medications at Time [...] + +--------+ + + + | NM NUCLEAR STRESS | Routin | 03/08/2016 | Coronary artery | Results for this | | TEST (PHARMACOLOGIC | e | 1:37 PM | disease involving | procedure are in the | | - VASODILATOR) | | PDT | [place] coronary | results section. | | | | | artery of [place] | | | | | | heart without angina | | | | | | pectoris | | + +--------+ + + + documented in this encounter Visit Diagnoses + + | Diagnosis | + + | Coronary artery disease involving [place] coronary artery of [place] heart without | | angina pectoris | + + documented in this encounter Administered Medications + +--------+ + +------+------+ | Medication Order | MAR | Action | Dose | Rate | Site | | | Action | Date | | | | + +--------+ + +------+------+ | technetium TC-[id number] sestamibi | Given | 03/08/20 | 10.7 | | | | (CARDIOLITE) injection 9 | | 16 9:13 | -millicu | | | | millicurie 9 -millicurie, | | AM PDT | keturah | | | | Intravenous, ONCE PRN, Other, | | | | | | | Starting 03/08/16 at 0912, | | | | | | | For 1 dose, Nuclear Medicine | | | | | | + +--------+ + +------+------+ +---+---+ | | | +---+---+ documented in this encounter"
--- OUTSIDE RECORDS SUMMARY | ~2019-11-29 | XMS | Encounter Summary ---
Demographics + + + | Address | [address] | | | [place] [address] | + + + | Home Phone | | + + + | Preferred Language | Unknown | + + + | Marital Status | | + + + | Orthodox Affiliation | Unknown | + + + | Race | Unknown | + + + | Ethnic Group | Unknown | + + + Author + + + | Author | [facility] | | | and [place] | + + + | Organization | [facility] | | [...] Team Providers + +------+ + | Care Processing Manager Name | Role | Phone | + +------+ + | Kyle Richey DO | PCP | | + +------+ + Encounter Details +--------+ + + + + | Date | Type | Department | Care Team | Description | +--------+ + + + + | 05/10/ | Orders Only | [facility] | [facility] | Chronic kidney | | 2016 | | NEPHROLOGY [address] | M, DO [address] | disease, stage IV | | | | [address] | [address] [place] | (severe) (HCC) | | | | [place], [place] | [place] [address] | (Primary Dx) | | | | [address] | [phone] | | | | | [phone] | | | +--------+ + + + [...] + documented as of this encounter Progress Joi Kwan RN - 05/10/2016 11:41 AM PSTLabs for 07/24/16 [facility] CARITO Gamez 05/20/16 1000 A M PSTdocumented in this encounter Plan of Treatment Not on filedocumented as of this encounter Visit Diagnoses + + | Diagnosis | + + | Chronic kidney disease, stage IV (severe) (HCC) - Primary Chronic kidney disease, | | Stage IV (severe) | + + documented in this encounter"
--- OUTSIDE RECORDS SUMMARY | ~2019-11-29 | XMS | Encounter Summary ---
Demographics + + + | Address | [address] | | | [place] [address] | + + + | Home Phone | | + + + | Preferred Language | Unknown | + + + | Marital Status | | + + + | Roman Catholic Affiliation | Unknown | + + + | Race | Unknown | + + + | Ethnic Group | Unknown | + + + Author + + + | Author | [facility] | | | and [place] | + + + | Organization | [facility] | | [...] Team Providers + +------+ + | Care Ore Charger Name | Role | Phone | + +------+ + | Kyle Richey DO | PCP | | + +------+ + Encounter Details +--------+ + + + + | Date | Type | Department | Care Team | Description | +--------+ + + + + | 09/21/ | Orders Only | [facility] | Arjun, | Chronic cough; | | 2015 | | PULMONARY [address] | Megha Mendoza MD | Gastroesophageal | | | | [place], | | reflux disease | | | | [place] [address] | | without esophagitis | | | | [phone] | | | +--------+ + + + [...] Chronic cough Cough | + + | Gastroesophageal reflux disease without esophagitis Esophageal reflux | + + documented in this encounter"
--- OUTSIDE RECORDS SUMMARY | ~2019-11-29 | XMS | Encounter Summary ---
Demographics + + + | Address | [address] | | | [place] [address] | + + + | Home Phone [...] Team Providers + +------+ + | Care Leno Sewer Name | Role | Phone | + +------+ + | Kyle Richey DO | PCP | | + +------+ + Encounter Details +--------+ + + + + | Date | Type | Department | Care Team | Description | +--------+ + + + + | 07/18/ | Abstract | [facility] [place] | [address] [place], | | | 2018 | | [address]ULMONARY [address] | [address] | | | | | [place], | [place] [address] | | | | | [place] [address] | [phone] | | | | | [phone] | | | +--------+ + + + [...]
--- OUTSIDE RECORDS SUMMARY | ~2019-11-29 | XMS | Encounter Summary ---
Demographics + + + | Address | [address] | | | [place] [address] | + + + | Home Phone | | + + + | Preferred Language | Unknown | + + + | Marital Status | | + + + | Protestant Affiliation | Unknown | + + + | Race | Unknown | + + + | Ethnic Group | Unknown | + + + Author + + + | Author | [facility] | | | and [place] | + + + | Organization | [facility] | | [...] Team Providers + +------+ + | Care Swatch Folder Name | Role | Phone | + +------+ + | Kyle Richey DO | PCP | | + +------+ + Reason for Visit +--------+--------+ + | Reason | Onset | Comments | | | Date | | +--------+--------+ + | Other | 12/07/ | question about allergy alert | | | 2015 | | +--------+--------+ + Encounter Details +--------+ + + + + | Date | Type | Department | Care Team | Description | +--------+ + + + + | 12/07/ | Telephone | [facility] | Marissa Rouse, | Other (question | | 2015 | | CARDIOLOGY [address] | MD [address] | about allergy alert) | | | | [place], | [place], | | | | | [place] [address] | [place] [address] | | | | | [phone] | [phone] | | | | | | | [...] Telephone Encounter - Evangelina Interiano RN - 12/08/2015 10:08 AM Ferdinand, machining technician from [facility] called to ask if we are aware of the allergy alert on this patient concerning the effient. They show an allergy to clopidogrel, they do not show a reaction. Per convers ation with Dr Beavers, please fill the prescription as it is and we will see how she does. Madi lopez, pharmacist at [facility] notified ...........................................Evangelina Interiano RN on 12/08/15 at 10:10 cubailee in this encounter Plan of Treatment Not on filedocumented as of this encounter Visit Diagnoses Not on filedocumented in this encounter"
--- OUTSIDE RECORDS SUMMARY | ~2019-11-29 | XMS | Clinical Summary ---
Demographics + + + | Address | [address] | | | [place] [address] | + + + | Home Phone | | + + + | Preferred Language | Unknown | + + + | Marital Status | | + + + | Yazidi Affiliation | Unknown | + + + | Race | Unknown | + + + | Ethnic Group | Unknown | + + + Author + + + | Author | [facility] | | | and [place] | + + + | Organization | [facility] | | | and [...] Team Providers + +------+ + | Care Life Science Taxonomist Name | Role | Phone | + +------+ + | Kyle Richey DO | PCP | | + +------+ + Allergies + + + + + + | Active Allergy | Reactions | Severity | Noted | Comments | | | | | Date | | + + + + + + | Albuterol | Itching, Other (See | High | 09/08/20 | Headache | | | Comments) | [...] e | + + + +---------+------+------+-------+ | lisinopril | Take 1 tablet by | 90 | 3 | 03/2 | | Activ | | (PRINIVIL, ZESTRIL) | mouth Daily. | tablet | | /20 | | e | | 10 mg [...] + + + +---------+------+------+-------+ | metoprolol | TAKE 1 TABLET BY | | 0 | 04/0 | | Activ | | succinate | MOUTH ONCE DAILY | | | 3/20 | | e | | (TOPROL-XL) 25 mg 24 | | | | 20 | | | | hr tablet | | | | | | | + + + +---------+------+------+-------+ | glipiZIDE | Take 2.5 mg by mouth | | 0 | | | Activ | | (GLUCOTROL XL) 2.5 | daily (with | | | | | e | | mg 24 hr tablet | breakfast). | | | | | | + + + +---------+------+------+-------+ | | Take 1-2 tablets by | 20 | 0 | 05/0 | | Activ | | HYDROcodone-acetamin | mouth every 6 hours | tablet | | 5/20 | | e | | ophen (NORCO) 5-325 | as needed for Pain. | | | 20 | | | | mg per tablet | | | | | | | + + + +---------+------+------+-------+ | omeprazole | Take 1 capsule by | 30 | 0 | 05/0 | | Activ | | (PRILOSEC) 40 MG | mouth every morning | capsule | | 5/20 | | e | | capsule | (before breakfast). | | | 20 | | | + + + +---------+------+------+-------+ | ondansetron | Take 1 tablet by | 15 | 0 | 05/0 | | Activ | | (ZOFRAN ODT) 4 mg | mouth every 6 hours | tablet | | 5/20 | | e | | disintegrating | as needed for | | | 20 | | | | tablet | Nausea. | | | | | | + [...] TB, [facility] with [facility] | | [facility] | + + + +---+ | RA (rheumatoid arthritis) | | + +---+ | Pleural effusion | | + +---+ + + | Overview: secondary to RA?, negative for TB | + + + +---+ | Coronary artery disease involving [place] coronary artery of | | | [place] heart without angina pectoris | | + +---+ + + | Overview: [facility] 03/25/16, shows non-critical coronary artery [...] circumflex coronary artery. | | Done at [facility].RESULTS: Aortic pressure is 162/91, with a mean [...] | + +---+ + + | Overview: [facility] 11/23/15 shows severe right coronary artery | | disease successful stenting of the right coronary artery.[facility] | | 11/21/15 shows coronary [...] | +--------+ + + + + | 09/13/ | Emergency | Emergency Medicine | Damian Hu | Acute pancreatitis | | 2019 | | | Jac Hansen MD | with uninfected | | | | | | necrosis, | | | | | | unspecified | | | | | | pancreatitis type | | | | | | (Primary Dx); | | | | | | Duodenitis | +--------+ + + + + | 09/13/ | Office | Immediate Care | Felipe | Acute pancreatitis, | | 2019 | Visit | | Ras Bryan MD | unspecified | | | | | | complication status, | | | | | | unspecified | | | | | | pancreatitis type | | | | | | (Primary Dx); | | | | | | Diarrhea, | | | | | | unspecified type | +--------+ + + + + from Last 3 Months Immunizations + + + + | Name | Administration Dates | Next Due | + + + [...] + + + | Blood Pressure | 183/86 | 09/14/2019 3:04 PM | | | | | PDT | | + + + + + | Pulse | 100 | 09/14/2019 3:04 PM | | | | | PDT | | + + + + + | Temperature | 36.8 C (98.3 F) | 09/14/2019 11:33 AM | | | | | PDT | | + + + + + | Respiratory Rate | 18 | 09/14/2019 3:04 PM | | | | | PDT | | + + + + + | Oxygen Saturation | 95% | 09/14/2019 3:04 PM | | | | | PDT | | + + + + + | Inhaled Oxygen | - | - | | | Concentration | | | | + + + + + | Weight | 90.7 kg (200 lb) | 09/14/2019 11:33 AM | | | | | PDT | | + + + + + | Height | 157.5 cm (5' 2") | 09/14/2019 11:33 AM | | | | | PDT | | + + + + + | Body Mass Index | 36.58 | 09/14/2019 11:33 AM | | | | | PDT | | + + + + + Plan of Treatment + + + + + | Health Maintenance | Due Date | Last | Comments | | | | Done | | + + + + + | Urine Drug Screening | | | | | | 9 | | | + + + + [...] + + + | Vaccine: | | 07/12/19 | | | Pneumococcal 19-64 | 7 | 17, | | | (3 of 3 - PPSV23) | | 11/15/19 | | | | | 12 | | + + + + + | Colorectal Cancer | | 11/22/19 | | | Screening (FIT) | 7 | 16, | | | | | 11/22/19 | | | | | 16, | | | | | 11/20/19 | | | | | 16 | | + + + + + | Breast Cancer | | | | | Screening | 8 | | | + + + + + | Hemoglobin A1c | | 07/27/19 | | | Screening | 9 | 19, | | | | | 10/29/19 | | | | | 17, | | | | | 11/20/19 | | | | | 16 | | + + + + + | Vaccine: Influenza | | 02/26/20 | | | (#1) | 0 | 19, | | | | | 03/12/20 | | | | | 17, | | | | | 03/02/20 | | | | | 17, | | | | | Addition | | | | | al | | | | | history | | | | | exists | | + + + + + | Hepatitis C | Completed | 10/29/19 | | | Screening | | 17 | | + + + + + [...] 2019 | / | | MD Wagner at [facility] | | ry | [place] | | | /[phone] | | [facility] | | | | | | 39 | + +-------+--------+ +--------+--------+--------+ Procedures + +--------+ + + + | Procedure Name | Priori | Date/Time | Associated Diagnosis | Comments | | | ty | | | | + +--------+ + + + | CT ABDOMEN PELVIS WO | STAT | 09/14/2019 | | Results for this | | CONTRAST | | 12:56 PM | | procedure are in the | | | | PDT | | results section. | + +--------+ + + + | EXTRA LAVENDER TOP | Routin | 09/14/2019 | | Results for this | | TUBE | e | 12:44 PM | | procedure are in the | | | | PDT | | results section. | + +--------+ + + + | EXTRA BLUE TOP TUBE | Routin | 09/14/2019 | | Results for this | | | e | 12:40 PM | | procedure are in the | | | | PDT | | results section. | + +--------+ + + + | EXTRA GREEN TOP TUBE | Routin | 09/14/2019 | | Results for this | | | e | 12:40 PM | | procedure are in the | | | | PDT | | results section. | + +--------+ + + + | EXTRA LAVENDER TOP | Routin | 09/14/2019 | | Results for this | | TUBE | e | 12:40 PM | | procedure are in the | | | | PDT | | results section. | + +--------+ + + + | TROPONIN I | STAT | 09/14/2019 | | Results for this | | | | 12:38 PM | | procedure are in the | | | | PDT | | results section. | + +--------+ + + + | LACTIC ACID | STAT | 09/14/2019 | | Results for this | | | | 12:38 PM | | procedure are in the | | | | PDT | | results section. | + +--------+ + + + | ECG 12 LEAD | STAT | 09/14/2019 | | Results for this | | | | 11:41 AM | | procedure are in the | | | | PDT | | results section. | + +--------+ + + + | ED INFORMATION | Routin | 09/14/2019 | | | | EXCHANGE | e | 11:28 AM | | | | | | PDT | | | + +--------+ + + + +---+--------+ | | | | | Proced | | | ure | | | Note - | | | Robin, | | | Lab In | | | | | | Hlseve | | | n - | | | 05/05/ | | | 2020 | | | 11:29 | | | AM PDT | | | | | | Format | | | ting | | | of | | | this | | | note | | | might | | | be | | | differ | | | ent | | | from | | | the | | | origin | | | al.COL | | | LECTIV | | | E?NOTI | | | FICATI | | | ON?05/ | | | 05/202 | | | 0 | | | 11:27? | | | CASTAN | | | WILLY, | | | JESSIE? | | | MRN: | | | [id number] | | | [id number] | | | riteri | | | a Met | | | | | | Histor | | | y of | | | Sepsis | | | | | | DxSecu | | | rity | | | and | | | Safety | | | No | | | recent | | | | | | Securi | | | ty | | | Events | | | | | | curren | | | tly on | | | | | | fileED | | | Care | | | Guidel | | | inesTh | | | ere | | | are | | | curren | | | tly no | | | ED | | | Care | | | Guidel | | | brant | | | for | | | this | | | patien | | | t. | | | Please | | | check | | | your | | | facili | | | ty's | | | medica | | | l | | | record | | | s | | | system | | | .Flags | | | | | | Histor | | | y of | | | Sepsis | | | - | | | Patien | | | t has | | | receiv | | | ed a | | | diagno | | | sis of | | | | | | Sepsis | | | from | | | an | | | acute | | | or | | | post-a | | | cute | | | settin | | | g. | | | Apply | | | approp | | | riate | | | clinic | | | al | | | planni | | | ng | | | practi | | | yoav; | | | to | | | learn | | | more | | | visit | | | [email or web address].go | | | v/seps | | | is/cli | | | nicalt | | | ools / | | | | | | Attrib | | | uted | | | By: | | | Collec | | | tive | | | Medica | | | l / | | | Attrib | | | uted | | | On: | | | 01/02/ | | | 2020 | | | Prescr | | | iption | | | Drug | | | Report | | | (12 | | | Mo.)PD | | | MP | | | query | | | found | | | no | | | report | | | .E.D. | | | Visit | | | Count | | | (12 | | | mo.)Fa | | | cility | | | | | | Visits | | | Low | | | Acuity | | | | | | Provid | | | ence | | | [facility] | [facility] | | | l | | | [facility] | | | 1 0 | | | [facility] [place] | | | y | | | Hospit | | | al 2 0 | | | Total | | | 3 0 | | | Note: | | | Visits | | | | | | indica | | | te | | | total | | | known | | | visits | | | . | | | Medica | | | id Low | | | | | | Acuity | | | Dx | | | are | | | the | | | number | | | of | | | primar | | | y | | | diagno | | | ses on | | | the | | | Medica | | | id's | | | Low | | | Acuity | | | dx | | | list. | | | | | | Recent | | | | | | Emerge | | | ncy | | | Depart | | | ment | | | Visit | | | [facility] | | | yDate | | | Facili | | | ty | | | City | | | State | | | Type | | | Diagno | | | ses or | | | Chief | | | | | | Compla | | | int | | | May 5, | | | 2020 | | | Provid | | | ence | | | [facility] | [facility] | [place] | | | [place] | | | Emerge | | | ncy | | | abd | | | to | | | back | | | pain | | | Oct | | | 15, | | | 2019 | | | [facility] | [place] | | | [facility] | | | [place] | | | [place] | | | Emerge | | | ncy | | | Chief | | | Compla | | | int: | | | FEVER | | | Aug | | | 26, | | | 2019 | | | [facility] | [facility] | [place] | | | y H. | | | [place] | | | [place] | | | Emerge | | | ncy | | | Long | | | term | | | (curre | | | nt) | | | use of | | | | | | insuli | | | n | | | Nicoti | | | ne | | | depend | | | ence, | | | unspec | | | ified, | | | | | | uncomp | | | licate | | | d | | | Cervic | | | algia | | | | | | Unspec | | | ified | | | sprain | | | of | | | left | | | middle | | | | | | finger | | | , | | | initia | | | l | | | encoun | | | ter | | | | | | Contus | | | ion of | | | left | | | knee, | | | initia | | | l | | | encoun | | | ter | | | Fall | | | (on) | | | (from) | | | other | | | | | | stairs | | | and | | | steps, | | | | | | initia | | | l | | | encoun | | | ter | | | | | | Allerg | | | y | | | status | | | to | | | other | | | drugs, | | | | | | medica | | | ments | | | and | | | biolog | | | ical | | | sub | | | Type | | | 2 | | | diabet | | | es | | | mellit | | | us | | | withou | | | t | | | compli | | | cation | | | s | | | Old | | | myocar | | | dial | | | infarc | | | tion | | | | | | Other | | | long | | | term | | | (curre | | | nt) | | | drug | | | therap | | | y Carlito | | | 13, | | | 2019 | | | [facility] | | | [place] | | | Urgent | | | Care | | | [place] | | | [place] | | | Urgent | | | Care | | | | | | Vagini | | | tis | | | | | | Candid | | | iasis | | | of | | | vulva | | | and | | | vagina | | | Rush | | | 29, | | | 2019 | | | [facility] | | | [place] | | | Urgent | | | Care | | | [place] | | | [place] | | | Urgent | | | Care | | | | | | Other | | | | | | Cutane | | | ous | | | absces | | | s of | | | abdomi | | | nal | | | wall | | | | | | Cellul | | | itis | | | of | | | other | | | sites | | | | | | Recent | | | | | | Inpati | | | ent | | | Visit | | | [facility] | | | yDate | | | Facili | | | ty | | | City | | | State | | | Type | | | Diagno | | | ses or | | | Chief | | | | | | Compla | | | int | | | Oct | | | 15, | | | 2019 | | | [facility] | [facility] | [place] | | | y [facility]. | | | [place] | | | [place] | | | Medica | | | l | | | Surgic | | | al | | | Sepsis | | | , | | | unspec | | | ified | | | organi | | | sm | | | Infct | | | fol a | | | proc, | | | superf | | | ic | | | incisi | | | onal | | | surgic | | | al | | | site, | | | init | | | | | | Severe | | | | | | sepsis | | | | | | withou | | | t | | | septic | | | shock | | | | | | Cutane | | | ous | | | absces | | | s of | | | abdomi | | | nal | | | wall | | | | | | Rheuma | | | toid | | | arthri | | | tis, | | | unspec | | | ified | | | | | | Hyperl | | | ipidem | | | ia, | | | unspec | | | ified | | | | | | Cellul | | | itis | | | of | | | abdomi | | | nal | | | wall | | | | | | Athero | | | sclero | | | tic | | | heart | | | diseas | | | e of | | | [place] | | | | | | lofton | | | ry | | | artery | | | witho | | | | | | Sepsis | | | due | | | to | | | Methic | | | illin | | | suscep | | | tible | | | Staphy | | | lococc | | | us | | | aureus | | | | | | Acute | | | kidney | | | | | | failur | | | e, | | | unspec | | | ified | | | Care | | | TeamPr | | | ovider | | | | | | Specia | | | lty | | | Phone | | | Fax | | | Servic | | | e | | | Dates | | | BRUNSM | | | AN, | | | MICHAE | | | L , | | | M.D. | | | Genera | | | l | | | Practi | | | ce | | | Curren | | | t | | | CUSTOD | | | IO, | | | HIPOLI | | | TO , | | | M.D. | | | Obstet | | | rics | | | and | | | Gyneco | | | logy | | | (509) | | | [phone] | | | 55 | | | (509) | | | 942-23 | | | 40 Aug | | | 27, | | | 2019 - | | | | | | Curren | | | t | | | Collec | | | tive | | | Portal | | | This | | | patien | | | t has | | | regist | | | ered | | | at the | | | | | | Provid | | | ence | | | [facility] | | [facility] | | | l | | | Center | | | | | | Emerge | | | ncy | | | Depart | | | ment | | | For | | | more | | | inform | | | ation | | | visit: | | | | | | https: | | | //prov | | | .colle | | | ctivem | | | edical | | | .com/[email or web address] | | | otify/ | | | [id number] | | | [id number] | | | [email or web address] | | | -[email or web address] | | | [id number] | | | [id number] | | | | | | PLEASE | | | NOTE: | | | 1. | | | Any | | | care | | | recomm | | | endati | | | ons | | | and | | | other | | | clinic | | | al | | | inform | | | ation | | | are | | | provid | | | ed as | | | guidel | | | brant | | | or for | | | | | | histor | | | ical | | | purpos | | | es | | | only, | | | and | | | provid | | | ers | | | should | | | | | | exerci | | | se | | | their | | | own | | | clinic | | | al | | | judgme | | | nt | | | when | | | provid | | | ing | | | care. | | | 2. | | | You | | | may | | | only | | | use | | | this | | | inform | | | ation | | | for | | | purpos | | | es of | | | treatm | | | ent, | | | paymen | | | t or | | | health | | | care | | | operat | | | ions | | | activi | | | ties, | | | and | | | subjec | | | t to | | | the | | | limita | | | tions | | | of | | | applic | | | able | | | Collec | | | tive | | | Polici | | | es. | | | 3. | | | You | | | should | | | | | | consul | | | t | | | direct | | | ly | | | with | | | the | | | organi | | | zation | | | that | | | provid | | | ed a | | | care | | | guidel | | | ine or | | | other | | | | | | clinic | | | al | | | histor | | | y with | | | any | | | questi | | | ons | | | about | | | additi | | | onal | | | inform | | | ation | | | or | | | accura | | | cy or | | | comple | | | teness | | | of | | | inform | | | ation | | | provid | | | ed.? | | | 2019 | | | [facility]le[facility] | | | tive | | | Medica | | | l | | | Techn[employer] | | | logies | | | , Inc[employer] | | | - | | | [email or web address] | | | llecti | | | vemedi | | | [email or web address] | | | m | +---+--------+ + +------+ + + + | CBC WITH | [...] | | pancreatitis type | | + +------+ + + + | LIPASE | STAT | 09/14/2019 | Acute | Results for this | | | | 10:25 AM | pancreatitis, | procedure are in the | | | | PDT | unspecified | results section. | | | | | complication status, | | | | | | unspecified | | | | | | pancreatitis type | | + +------+ + + + | COMPREHENSIVE | STAT [...] | | pancreatitis type | | + +------+ + + + from Last [address] Abdomen Pelvis wo Contrast (09/14/2019 12:56 PM PDT) + + | Specimen | + + | | + + + + + | Impressions | Performed At | + + + | Proximal duodenal wall thickening and surrounding inflammation | [facility] | | most compatible with duodenitis. Cannot exclude mucosal ulceration or | | | underlying neoplastic process. Consider follow-up endoscopic | | | evaluation if indicated. Dictated and Signed by: Nile Yu, | | | MD Electronically signed: 09/14/2019 1:30 PM | | + + + + + + | Narrative | Performed At | + + + | TECHNIQUE: Noncontrast axial CT imaging was obtained through the | [facility] | | abdomen and pelvis with coronal and sagittal reformats. At least | | | one of the following CT dose optimization techniques were used: | | | Automated exposure control; Adjustment of mA and/or kV according to | | | patient size; Use of iterative reconstruction technique. CLINICAL | | | INFORMATION: Abdominal pain, acute, nonlocalized COMPARISON: None | | | available. FINDINGS: LOWER CHEST: Bases are clear. BONES: | | | No acute osseous abnormality. No concerning osteoblastic or | | | osteolytic lesion. ABDOMEN/PELVIS: Abdominal wall: No inguinal | | | lymphadenopathy. Postoperative changes at the anterior abdominal wall | | | inferior to umbilicus. Liver: No mass lesion. Gallbladder: | | | Surgically absent. Pancreas: No mass or ductal dilatation. Spleen: | | | Unremarkable. Adrenals: No nodule. Kidneys: No nephrolithiasis or | | | hydronephrosis. Nodular contour of both kidneys. Evaluation for a | | | mass lesion is limited without intravenous contrast. Ureters: No | | | hydroureter. Urinary Bladder: No wall thickening. Reproductive | | | organs: No adnexal mass. Hysterectomy changes. Bowel: Normal | | | appendix. The proximal duodenum demonstrates mild circumferential | | | wall thickening with mild surrounding inflammation. No evidence of | | | bowel perforation. Scattered sigmoid diverticula without pericolonic | | | inflammation. Peritoneum/retroperitoneum: No ascites, free air, or | | | lymphadenopathy. Vessels: Normal caliber of the abdominal aorta. | | | | | + + + + + | Procedure Note | + + | Robin, Rad Results In 09/14/2019 1:33 PM PDT | | TECHNIQUE: Noncontrast axial CT imaging was obtained through the abdomen and | | pelvis with coronal and sagittal reformats. | | | | At least one of the following CT dose optimization techniques were | | used: Automated exposure control; Adjustment of mA and/or kV according | | to patient size; Use of iterative reconstruction technique. | | | | CLINICAL INFORMATION: Abdominal pain, acute, nonlocalized | | | | COMPARISON: None available. | | | | FINDINGS: | | | | LOWER CHEST: Bases are clear. | | | | BONES: No acute osseous abnormality. No concerning osteoblastic or osteolytic | | lesion. | | | | ABDOMEN/PELVIS: | | Abdominal wall: No inguinal lymphadenopathy. Postoperative changes at the | | anterior abdominal wall inferior to umbilicus. | | | | Liver: No mass lesion. | | Gallbladder: Surgically absent. | | Pancreas: No mass or ductal dilatation. | | Spleen: Unremarkable. | | | | Adrenals: No nodule. | | Kidneys: No nephrolithiasis or hydronephrosis. Nodular contour of both kidneys. | | Evaluation for a mass lesion is limited without intravenous contrast. | | Ureters: No hydroureter. | | Urinary Bladder: No wall thickening. | | Reproductive organs: No adnexal mass. Hysterectomy changes. | | | | Bowel: Normal appendix. The proximal duodenum demonstrates mild circumferential | | wall thickening with mild surrounding inflammation. No evidence of bowel | | perforation. Scattered sigmoid diverticula without pericolonic inflammation. | | Peritoneum/retroperitoneum: No ascites, free air, or lymphadenopathy. | | Vessels: Normal caliber of the abdominal aorta. | | | | | | IMPRESSION: | | | | Proximal duodenal wall thickening and surrounding inflammation most compatible | | with duodenitis. Cannot exclude mucosal ulceration or underlying neoplastic | | process. Consider follow-up endoscopic evaluation if indicated. | | | | Dictated and Signed by: Nile Yu MD | | Electronically signed: 09/14/2019 1:30 PM | + + + +---------+ + + | Performing | Address | City/State/Zipcode | Phone Number | | Organization | | | | + +---------+ + + | [facility] | | | | + +---------+ + + Extra Lavender Top Tube (09/14/2019 12:44 PM PDT)Only the most recent of 2 results within t he time period is included. + +-------+ + + + | Component [...] [address] | [place] | [phone] | | [facility] | | [address] | | | - LABORATORY | | | | + + + + + Extra Green Top Tube (09/14/2019 12:40 PM PDT) + +-------+ + + + | Component | Value | Ref Range | Performed | Pathologist | | | | | At | Signature | + +-------+ + + + | Extra Green | Done | | [facility] | | | Top Tube | | | [facility] | | | | | | [facility] [...] + | [facility] | [address] | [place] | [phone] | | [facility] | | [address] | | | - LABORATORY | | | | + + + + + Extra Blue Top Tube (09/14/2019 12:40 PM PDT) + +-------+ + + + [...] | [address] | [place], [place] | [phone] | | [facility] | | [address] | | | - LABORATORY | | | | + + + + + Troponin I (09/14/2019 12:38 PM PDT) + + + + + + | Component | Value | Ref Range | Performed | Pathologist | | | | | At | Signature | + + + + + + | Troponin I | 0.01Comment: | <0.06 ng/mL | [facility] | | | | Comment:Reference | | [facility] | | | | Ranges: 0.00-0.06 = | | MEDICAL | | | | NORMAL >0.06 = | | CENTER - | | | | SUSPICIOUS FOR | | LABORATORY | | | | MYOCARDIAL DAMAGE NOTE: | | | | | | Values greater than | | | | | | 0.78 ng/mL have been | | | | | | shown to be strongly | | | | | | associated with acute | | | | | | myocardial infarction. | | | | | | [employer] | | | | | [...] + | [facility] | [address] | [place] | [phone] | | [facility] | | [address] | | | - LABORATORY | | | | + + + + + Lactic Acid (09/14/2019 12:38 PM PDT) + +-------+ + + + | Component | Value | Ref Range | Performed | Pathologist | | | | | At | Signature | + +-------+ + + + | Lactate | 1.0 | 0.5 - 2.2 | [facility] | | | | | [...] [address] | [place] | [phone] | | [facility] | | [address] | | | - LABORATORY | | | | + + + + + ECG 12 lead (09/14/2019 11:41 AM PDT) + + + + + + | Component | Value | Ref Range | Performed | Pathologist | | | | | At | Signature | + + + + + + | VENTRICULAR | 64 | BPM | [facility] | | | RATE EKG | | | | | + + + + + + | ATRIAL RATE | 64 | BPM | [facility] | | + + + + + + | P-R | 126 | ms | [facility] | | | INTERVAL | | | | | + + + + + + | QRS | 96 | ms | [facility] | | | DURATION | | | | | + + + + + + | Q-T | 412 | ms | [facility] | | | INTERVAL | | | | | + + + + + + | Q-T | 425 | ms | [facility] | | | INTERVAL | | | | | | (CORRECTED) | | | | | + + + + + + | P WAVE AXIS | 108 | degrees | [facility] | | + + + + + + | QRS AXIS | -26 | degrees | [facility] | | + + + + + + | T AXIS | 151 | degrees | [facility] | | + + + + + + | INTERPRETAT | Unusual P axis, possible | | [facility] | | | ION TEXT | ectopic atrial | | | | | | rhythmLeft ventricular | | | | | | hypertrophy with | | | | | | repolarization | | | | | | abnormalityAbnormal | | | | | | ECGWhen compared with | | | | | | ECG of 24-AUG-2019 | | | | | | 10:24,T wave amplitude | | | | | | has decreased in leads | | | | | | V3-6Possible Ectopic | | | | | | atrial rhythm is now | | | | | | presentConfirmed by | | | | | | ALVA FLYNN MD ([id number]) | | | | | | on 09/15/2019 5:53:15 AM | | | | + + [...] + +---------+ + + CBC with Differential (09/14/2019 10:25 AM PDT) [...] | | Immature | | K/uL | [facility] | | | Granulocyte | | | [...] + + | [facility] | [address] | [place] | [phone] | | [facility] | | [phone] | | | [facility] | | [...] [facility] | | | | | | [facility] | | | [...] + + + | [facility] | [address] | [place] | [phone] | | [facility] | | [address] | | | [facility] | | [...] [facility] | | | | | | [facility] | | | | | | [facility] | | | | | | [facility] | | | | | | [facility] | | + + + + + + | Creatinine | 2.67 (H) | 0.55 - 1.02 | [facility] | | | | | mg/dL | [facility] | | | | | | MEDICAL | | | | | | PARK | | | | | | LABORATORY | | + + + + + + | eGFR if not | 18 (L)Comment: | >=60 | [facility] | | | | GLOMERULAR FILTRATION | mL/min/1.73m2 | [facility] | | | IRAQI | RATE,ESTIMATED | | MEDICAL | | | | mL/min/1.35a6Sgkp than | | PARK | | | [...] | | ine Ratio | | | [place] | | [...] + + + | [facility] | [address] | [place] | [phone] | | [facility] | | [address] | | | [facility] LABORATORY | | | | + + + + + from Last 3 Months Insurance +-------+--------+ +--------+ +---------+------+ | Payer | Benefi | Subscriber | Effect | Phone | Address | Type | | | t Plan | ID | danielle | | | | | | / | | Dates | | | | | | Group | | | | | | +-------+--------+ +--------+ +---------+------+ | GEHA | GEHA | [id number] | | [phone] | | PPO | | | AETNA | | [id number]-[id number] | 6 | | | | | PPO | | esent | | | | +-------+--------+ +--------+ +---------+------+ + +--------+ +--------+ + + | Guarantor Name | Accoun | Relation to | Date | Phone | Billing Address | | | t Type | Patient | of | | | | | | | | | | + +--------+ +--------+ + + | Jessie Casarez | Person | Self | [birth year] | [address] | | | al/Fam | | 1965 | [phone] | [address] [place] | | | armaan | | | 6 (Home) | [address] | | | | | | [phone] | | | | | | | 4 (Work) | | + +--------+ +--------+ + + Advance Directives + + + + + | Type | Date Recorded | Patient | Explanation | | | | Cushion Worker | | + + + + + | Power of | | | | | Banking Management Consulting Manager | | | | + + + + + | Advance | 03/25/2016 | | | | Directive | 12:34 PM | | | + + + + + | Advance | | | | | Directive | | | | + + + + + + + + + + | Code Status | Date | Date | Comments | | | Activated | Inactivated | | + + + + + | Full Code | 11/20/2015 | 11/24/2015 | | | | 4:00 AM | 3:08 PM | | + + + + +
--- OUTSIDE RECORDS SUMMARY | ~2019-11-29 | XMS | Encounter Summary ---
Demographics + + + | Address | [address] | | | [place] [address] | + + + | Home Phone [...] + | Author | [facility] | | | and [place] | + + + | Organization | [facility] | | | [...] Team Providers + +------+ + | Care Beam Builder Name | Role | Phone | + +------+ + | Kyle Richey DO | PCP | | + +------+ + Reason for Visit + + + | Reason | Comments | + + + | Diabetes Education | | + + + Evaluate & Treat (Routine) +--------+ + + + + + | Status | Reason | Specialty | Diagnoses / | Referred By | Referred To | | | | | Procedures | Contact | Contact | +--------+ + + + + + | Closed | Specialty | Diabetes | Diagnoses | | [facility] | | | Services | Educator / | Type 2 | Gabi, | Diabetes | | | Required | Diabetes | diabetes | L[facility] Chun | Education | | | | Services | mellitus | [address] | | | | | without | [place] | [place], | | | | | complication | [place], | [place] | | | | | , without | [place] | [address] | | | | | long-term | [address] | Phone: | | | | | current use | Phone: | [phone] | | | | | of insulin | [phone] | Fax: | | | | | (HCC) | Fax: | [phone] | | | | | Procedures | [phone] | | | | | | [place] DIAB | | | | | | | MANAGE TRN | | | | | | | PER INDIV | | | | | | | [place] DIAB | | | | | | | MANAGE TRN | | | | | | | IND/GROUP | | | +--------+ + + + + + Encounter Details +--------+---------+ + + + | Date | Type | Department | Care Team | Description | +--------+---------+ + + + | 03/08/ | Office | [facility] | Gabi, | Type 2 diabetes | | 2016 | Visit | [facility] | LUIZ Chun [address] | mellitus without | | | | EDUCATION [address] | [address] [place], | complication, | | | | [place], | [place] [address] | without long-term | | | | [place] [address] | [phone] | current use of | | | | [phone] | | insulin (HCC) | | | | | Mariela Landis RN | (Primary Dx) | +--------+---------+ + + + Social [...] + + + | Blood Pressure | 150/78 | 03/08/2016 11:24 AM | | | | | PDT [...] + + + + | Weight | 94.5 kg (208 lb 6.4 | 03/08/2016 11:24 AM | | | | oz) | PDT | | + + + + + | Height | - | - | | + + + + + | Body Mass Index | 38.12 | 02/22/2016 2:13 PM | | | | | PDT | | + + + + + documented in this encounter Patient Instructions Patient Instructions Mariela Landis RN - 03/08/2016 11:25 AM PDTDiabetes Self-Management P kervin: 1. Eat something small within 1 hour of getting up in the morning, like a cup of brazilian yogu rt, or a small serving of fruit with peanut butter. 2. Start using the treadmill to walk 10 minutes per day, working up from there as you are a ble. (Aim to reach 30 minutes per day at least 5 days per week). 3. Call Dr. Richey's office to have him send a prescription for "Lali Contour Next" strips and lancets to your pharmacy. 4. Check blood sugar once a day, three days a week before eating in the morning, and 3 days a week 1 or 2 hours after a meal. 5. Record blood sugars in log book so that you can identify patterns. Targets per the [place] [employer]: Fasting 70-130; 2 hours after eating less t lomeli 180, A1C 7%. 6. Recommended to eat 3-4 servings of carbohydrates with each meal (45-60 grams)- 3 meals a day. If a snack is needed, 1 serving of carbohydrate (15 grams) mixed with some protein. 7. Meet with dietitian in order to identify balanced meals. documented in this encounter Progress Notes Mariela Landis RN - 03/08/2016 12:41 PM PDT DIABETES EDUCATION NOTE Date: 03/08/2016 Preferred Name: Jessie Class/Visit Type: Individual, Initial Preferred Learning Style: Listening, Looking, Touching/Doing Support Person(s) Present: None Barriers to Care: Disease State, Physical (She has arthritis, and has had a heart attack in November. ) Concerns/Changes: A1C in November, when she had a heart attack, was 10.7. She is going to see Keyla Birmingham at the [facility] in April for management of her diabetes. How long has the patient had Diabetes?: Less than 2 years (She states that before November she was always told that she was borderline diabetic. However, when she had her heart attack in November, her blood sugar was over 900 and her A1C was 10.7) When did the patient last receive Diabetes Education?: Never Present Health Status: Fair Diabetes Risk Factors: Weight, HTN, Lipid Levels, Lack of Physical Activity, Family Hx Sivan betes Overview Topics Discussed: Pathophysiology of Diabetes, Nutrition, Physical Activity, Diab etes Medications, Monitoring Resources Provided: Explanation, Handout, One on one, Role play (Return demonstration of ho w to check her blood sugar. Which was 286 at 12:10 pm, approximately 2 hours after eating tw o tacos and a small bag of chips) AADE 7 Self-Care Behaviors and Behavioral Goals: Healthy Eating Office Visit from 03/08/2016 in [facility] DIABETES EDUCATION Assessment Health Behaviors, Health Beliefs & Attitudes, Knowledge & Skills [Before her h eart attack she was drinking a large amount of pop. She states that she has cut that back to one a day and has switched to diet instead of regular. She states she does not like vegetab les at all, and only a limited amount of fruits. ] Discussion effect of carbohydrates on blood glucose, timing of meals & snacks, identify c arbohydrate foods and appropriate portions, nutrition labels [Generally does not eat breakfa st.] Date 03/08/16 Goal Eat something small, such as a brazilian yogurt or fruit and peanut butter, within 1 malena r of getting up in the morning. Pt Confidence 8 Being Active Office Visit from 03/08/2016 in [facility] DIABETES EDUCATION Assessment Health Behaviors, Health Beliefs & Attitudes, Knowledge & Skills Discussion exercise safety, benefits of exercise/physical activity, barriers to exercise Date 03/08/16 Goal Start walking on the treadmill 10 minutes per day, increasing as able. Aim to reach 30 minutes per day at least 5 days a week. Pt Confidence 7 Monitoring Blood Glucose Office Visit from 03/08/2016 in [facility] DIABETES EDUCATION Assessment Health Behaviors, Health Beliefs & Attitudes, Knowledge & Skills Discussion not monitoring, A1C vs SMBG Date 03/08/[address] Richey's office and as for a prescription for "Lali Contour Next" strips a nd lancets. Check blood sugar once a day, 3 days a week in the morning before eating, and 3 days a week 1-2 hours after eating a meal. Pt Confidence 7 Patient Instructions: Diabetes Self-Management Plan: 1. Eat something small within 1 hour of getting up in the morning, like a cup of brazilian yogu rt, or a small serving of fruit with peanut butter. 2. Start using the treadmill to walk 10 minutes per day, working up from there as you are a ble. (Aim to reach 30 minutes per day at least 5 days per week). 3. Call Dr. Richey's office to have him send a prescription for "Lali Contour Next" strips and lancets to your pharmacy. 4. Check blood sugar once a day, three days a week before eating in the morning, and 3 days a week 1 or 2 hours after a meal. 5. Record blood sugars in log book so that you can identify patterns. Targets per the [place] [employer]: Fasting 70-130; 2 hours after eating less t lomeli 180, A1C 7%. 6. Recommended to eat 3-4 servings of carbohydrates with each meal (45-60 grams)- 3 meals a day. If a snack is needed, 1 serving of carbohydrate (15 grams) mixed with some protein. 7. Meet with dietitian in order to identify balanced meals. Diabetes Self-Management Follow-Up Plan: Attend a diabetes support group or community pres entation, Contact Corporate Concierge with questions or schedule a follow-up appointment or re fresher course., Consult with PCP/Specialist regularly for recommendations, includes lab alexa ts, dental care, eye screenings, feet, heart and kidneys. Follow Up: 2 Months Follow Up Contact Method: Telephone Future Appointments Date Time Provider Department Center 03/08/2016 14:00 [facility] 03/12/2016 15:00 [facility] Nino [facility] 03/18/2016 15:00 Macey Nash MD [facility] 07/17/2016 15:30 Marissa Rouse MD [facility] Time spent with patient: 60 Start Time: 1115 Stop Time: 1215 Class/Visit Type: Individual, Initial documented in this enc ounter Plan of Treatment + + +--------+ + + | Name | Type | Priori | Associated Diagnoses | Order Schedule | | | | ty | | | + + +--------+ + + | * [facility] Diabetes | Outpatient | Routin | Type 2 diabetes | Ordered: 02/22/2016 | | Education - AMB | Referral | e | mellitus without | | | Referral | | | complication, | | | | | | without long-term | | | | | | current use of | | | | | | insulin (HCC) | | + + +--------+ + + documented as of this encounter Visit Diagnoses + + | Diagnosis | + + | Type 2 diabetes mellitus without complication, without long-term current use of | | insulin (HCC) - Primary | + + documented in this encounter
--- OUTSIDE RECORDS SUMMARY | ~2019-11-29 | XMS | Encounter Summary ---
Demographics + + + | Address | [address] | | | [place] [address] | + + + | Home Phone | | + + + | Preferred Language | Unknown | + + + | Marital Status | | + + + | Advent Affiliation | Unknown | + + + | Race | Unknown | + + + | Ethnic Group | Unknown | + + + Author + + + | Author | [facility] | | | and [place] | + + + | Organization | [facility] | | [...] Providers + +------+ + | Care Supervisor Quilting Name | Role | Phone | + +------+ + | Kyle Richey DO | PCP | | + +------+ + Reason for Visit Evaluate & Treat (Routine) +--------+--------+ + + + + | Status | Reason | Specialty | Diagnoses / | Referred By | Referred To | | | | | Procedures | Contact | Contact | +--------+--------+ + + + + | Closed | | Nephrology | Diagnoses | | [facility] | | | | | Chronic | [place], | Nephrology | | | | | kidney | Lay LUIZ | [address] | | | | | failure | [address] | | | | | | [place] | [place], | | | | | | [place], | [place] [address] | | | | | | [place] | Phone: | | | | | | [address] | [phone] | | | | | | Phone: | Fax: | | | | | | [phone] | [phone] | | | | | | Fax: | | | | | | | [phone] | | +--------+--------+ + + + + Encounter Details +--------+ + + + + | Date | Type | Department | Care Team | Description | +--------+ + + + + | 11/04/ | Off-Site | [facility] [place] | Riaz Retana | Chronic kidney | | 2017 | Visit | NEPHROLOGY [address] | M, DO [address] | disease, stage III | | | | [address] | [address] [place] | (moderate) (Primary | | | | [place], [place] | [place] [address] | Dx); Controlled type | | | | [address] | [phone] | 2 diabetes mellitus | | | | [phone] | | with diabetic | | | | | | nephropathy, with | | | | | | long-term current | | | | | | use of insulin | | | | | | (HCC); Essential | | | | | | hypertension, | | | | | | benign; Coronary | | | | | | artery disease | | | | | | involving [place] | | | | | | coronary artery of | | | | | | [place] heart without | | | | | | angina pectoris | +--------+ + + + + [...] + + + | Blood Pressure | 160/98 | 11/04/2016 2:47 PM | | | | | PDT | | + + + + + | Pulse | - | - | | + + + + + | Temperature | 36.9 C (98.4 F) | 11/04/2016 2:47 PM | | | | | PDT [...] Weight | 99.8 kg (220 lb) | 11/04/2016 2:47 PM | | | | | PDT | | + + + + + | Height | - | - | | + + + + + | Body Mass Index | 40.24 | 07/11/2016 1:48 PM | | | | | PST | | + + + + + documented in this encounter Progress Riaz Sagastume DO - 11/04/2016 2:00 PM PDT Subjective: NEPHROLOGY Patient ID: Jessie Casarez is a 51 y.o. female. Follow-up for this pleasant 51 YOLAF with proteinuria suspicious for diabetic glomeruloscle rosis, long-standing Type II DM requiring insulin, RA which is been treated with Humira, 2 v essel CAD, status post PCI 2012, 2015, chronic anemia, COPD, centripetal obesity, and h yperlipidemia. She denies any new edema, dyspnea, anorexia, hematuria or pruritus. She den ies any new rashes. The majority of her serology is negative except for her RA. Basically, HBV, HCV antibodies , C3, C4, ANCA are negative. Her SPEP is negative for any M spike. Her UNA is positive at 1:320, however, this is likely a false positive secondary to her strongly positive RA at 218 (<20 IU/mL), at [facility]. Although, I cannot completely exclude idiopathic GN , given her current BMI, the chronicity of Type II DM and above serology might gut feeling this point, is that most likely this re presents diabetic glomerulosclerosis? PAST MEDICAL HISTORY: 1. Type 2 DM, possibly up to 13 years, per her history. She is unsure of end-organ damage ? 2. Rheumatoid Arthritis x 12 years, now in remission on SQ Humira, weekly. This was compl icated by a pleural effusion at one time. 3. 2 vessel CAD, with the pt undergoing PCI w/o stents from records in [facility] , to mid-CX in 11/21/12, and to Mid-RCA, 11/23/15. She has been stable on metoprolol, atorvastatin, ASA, and prasugrel. 4. Hypochromic, microcytic anemia with previous low Fe levels in November,, c/w both anem ia 2' to chronic disease, and Fe deficiency anemia? She believes that she had colonoscopy a nd EGD by Dr. Beavers at the [facility] which were negative, approximately one year ago . 5. COPD, not requiring home O2, or steroids, x 2 years per the pt. 6. Probable hyperlipidemia x3 years , at least, but possibly longer? Outpatient Prescriptions Marked as Taking for the 11/04/16 encounter (Off-Site Visit) with Hali Retana, DO Medication Sig Dispense Refill adalimumab (HUMIRA PEN) [...] injection (vial) Inject under the skin nightly. [DISCONTINUED] Iron Polysacch Bjuhv-D19-LO (FERREX 150 FORTE PO) Take 1 tablet by mouth 2 times daily. isosorbide mononitrate (IMDUR) 30 mg ER tablet [...] (before breakfast ). ONETOUCH VERIO strip 0 [DISCONTINUED] prasugrel (EFFIENT) 10 mg TABS Take 1 tablet by mouth Daily. 90 tablet 3 sulfaSALAzine (AZULFIDINE) 500 MG EC tablet Take 1,000 mg by mouth 2 times daily. tiotropium (SPIRIVA) 18 mcg inhalation capsule Inhale 1 capsule into the lungs Daily. ( Patient taking differently: Inhale 18 mcg into the lungs as needed.) 90 capsule 3 Allergies Allergen Reactions Albuterol Other (See Comments) Gives her a headache Review of Systems Objective: BP (!) 160/98 | Temp 36.9 C (98.4 F) | Wt 99.8 kg (220 lb) | BMI 40. 24 kg/m Physical Exam Heart: Regular rate and rhythm with no S3, S4, murmur or rub. Lungs: CTA bilaterally. No rales or wheezes. Abdomen: soft, obese, nontender, normoactive bowel sounds. Extremities: No acute synovitis; no clubbing, cyanosis, edema, no foot ulcers. Lab Results Component Value Date NAEX 137 10/28/2016 KEX 4.0 10/28/2016 CLEX 105 10/28/2016 CO2EX 18 (A) 10/28/2016 BUNEX 21 10/28/2016 CREEX 1.59 (A) 10/28/2016 EGFREX 34 (A) 10/28/2016 GLUEX 145 (A) 10/28/2016 PHOSEX 3.6 10/28/2016 PTHEX 166.2 (A) 10/28/2016 YGM1FKF 7.3 (A) 10/28/2016 Lab Results Component Value Date WBCEX 10.9 10/28/2016 HGBEX 13 10/28/2016 HCTEX 40.1 10/28/2016 PLTEX 316 10/28/2016 Lab Results Component Value Date C3 116.8 10/28/2016 Lab Results Component Value Date C4 26.4 10/28/2016 RHEUMATOID FACTOR Rheumatoid Factor, Quant Collected: 10/28/16 Reference range: 20 Value: 218 (Abnormal) Comment: Rheumatoid Factor, Quant Order: [id number] Status: Final result Visible to patient: No (Not Released) Next appt: 02/10/2017 at 17:00 in Nephrology (Riaz Retana DO) Ref Range & Units 2mo ago RHEUMATOID FACTOR 20 218 C3 COMPLEMENT 87 - 200 116.8 C4 COMPLEMENT 19 - 52 26.4 Specimen Lab Results Component Value Date CRCLEARANCE 49.0 (A) 10/28/2016 PROTEX 1,462 (A) 10/28/2016 Assessment: 1. Stage 3 CKD, with proteinuria-- suspicious for diabetic glomerulosclerosis. Her Scr is about the same. 2. Type 2 DM, requiring insulin--with probable nephropathy. 3. 2 vessel CAD, s/p PCI to Mid-CX , 2012, mid-RCA, 11/23/15--stable on ASA, atorvastatin. 4. Hypertension-- suboptimal control 5. Rheumatoid Arthritis--in remission on Humira, SQ. 6. History of anemia--improved today. 7. Hyperlipidemia--on statin Rx. 8. COPD--compensated. Plan: 1. I had a long discussion with Jessie that I think given the above serology, her BMI, and chronicity of type II DM that most likely this represents macro but albuminuria and diabetic glomerulosclerosis. I'm not convinced that renal core biopsy would offer anything at this point. 2. I discussed that the mainstay of preventing progression is optimal BP control with targ et BP <130/80 mmHg, and optimal glycemic control with HbA1c <7.0% as she is doing. 3. I discussed that I think she could benefit from an ACEI, lisinopril 10 mg daily for its renoprotective effect. This was called into [facility]. 4. In regards to her SHPTH I discussed this can prevent ASCVD long-term. Therefore, will begin Calcitriol 0.5 g, 1, M-W- only, to prevent long-term arteriosclerosis from metastat ic calcification. 5. Will plan to see her back in 4 months at the [facility]. She joel l have CBC, CMP, PO4, HbA1c, iPTH, lipid profile, and 24 Hr urine one week prior to that. : Lay Castillo MD, Rheumatology, [place], [place] Kyle Ordoñez D.O., [facility] documented in thi s encounter Plan of Treatment Not on filedocumented as of this encounter Procedures + +--------+ + + + | Procedure Name | Priori | Date/Time | Associated Diagnosis | Comments | | | ty | | | | + +--------+ + + + | LABS - EXTERNAL SCAN | | 10/28/2016 | | Results for this | | | | 12:00 AM | | procedure are in the | | | | PDT | | results section. | + +--------+ + + + documented in this encounter Results LABS - EXTERNAL SCAN (10/28/2016 12:00 AM PDT) + + + | Narrative | Performed At | + + + | Ordered by an | | | unspecified provider. | | + + + documented in this encounter Visit Diagnoses + + | Diagnosis | + + | Chronic kidney disease, stage III (moderate) (HCC) - Primary Chronic kidney disease, | | Stage III (moderate) | + + | Controlled type 2 diabetes mellitus with diabetic nephropathy, with long-term current | | use of insulin (HCC) | + + | Essential hypertension, benign | + + | Coronary artery disease involving [place] coronary artery of [place] heart without | | angina pectoris | + + documented in this encounter"
--- OUTSIDE RECORDS SUMMARY | ~2019-11-29 | XMS | Encounter Summary ---
Demographics + + + | Address | [address] | | | [place] [address] | + + + | Home Phone [...] Team Providers + +------+ + | Care Ream Cutter Name | Role | Phone | + [...] | +--------+ + + + + | 11/19/ | Hospital | [facility] | Victoriano Morales, | Acute kidney injury | | 2016 - | Encounter | MED CTR ICU [address] | DO [address] | superimposed on | | | | [place], | [place] LLH[address] [place], | chronic kidney | | 11/23/ | | [place] [address] | [place] [address] | disease (HCC) | | 2016 | | [phone] | [phone] | (Primary Dx); | | | | | | Coronary artery | | | | | Molina Owens | disease involving | | | | | MD Rajat [address] | rampart coronary | | | | | [address] | artery of rampart | | | | | [place] [address] | heart, angina | | | | | [phone] | presence | | | | | | unspecified; Chronic | | | | | | obstructive | | | | | | pulmonary disease, | | | | | | unspecified COPD | | | | | | type ([facility]); Elevated | | | | | | troponin I level; | | | | | | Leukocytosis, | | | | | | unspecified type; | | | | | | Microcytic anemia; | | | | | | Non-ST elevation | | | | | | myocardial | | | | | | infarction (NSTEMI), | | | | | | initial episode of | | | | | | care ([facility]); | | | | | | Rheumatoid | | | | | | arthritis, involving | | | | | | unspecified site, | | | | | | unspecified | | | | | | rheumatoid factor | | | | | | presence ([facility]); | | | | | | Suspected sleep | | | | | | apnea; Uncontrolled | | | | | | diabetes mellitus | | | | | | with hyperglycemia | | | | | | ([facility]); Coronary | | | | | | artery disease | | | | | | involving rampart | | | | | | coronary artery of | | | | | | rampart heart without | | | | | [...] + + + | Blood Pressure | 156/80 | 11/24/2015 7:22 AM | | | | | PDT | | + + + + + | Pulse | 74 | 11/24/2015 9:28 AM | | | | | PDT | | + + + + + | Temperature | 37.2 C (99 F) | 11/24/2015 7:22 AM | | | | | PDT | | + + + + + | Respiratory Rate | 18 | 11/24/2015 9:28 AM | | | | | PDT | | + + + + + | Oxygen Saturation | 95% | 11/24/2015 9:28 AM | | | | | PDT | | + + + + + | Inhaled Oxygen | - | - | | | Concentration | | | | + + + + + | Weight | 94.9 kg (209 lb 3.5 | 11/24/2015 4:35 AM | | | | oz) [...] been uncontrolled, RA, who was sent from [facility] with chest pain, hyperglycemia and elevated [...] load in the setting of 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 Her renal function remained [...] week. Specialty: Family Medicine Contact information: [address] [facility] [address] Follow up with Marissa Rouse MD In 2 weeks. Specialty: Cardiology Contact information: [address] [facility] [place] [address] Discharge Medications New Medications Details atorvaSTATin [...] signed by: Molina Owens MD, 11/24/2015 10:36 [facility] documented in this encounter Discharge Instructions Instructions Leslie Carrion, Regional Clinical Research Associate-Clinical - 11/24/2015Please arrive at 3:30 pm, 1/2 [...] 0.8 mLs under | | 0 | 04/22/20 | | | PEN) 40 mg/0.8 mL [...] documented as of this encounter Progress Notes Mairssa Rouse MD - 11/24/2015 7:16 AM PDTFormatting [...] LCx .Since that time, she saw a cash room clerk for couple times and loss of follow-up. B. Echocardiogram on 11/20/15 showed Mild biatrial dilatation. Maria l left ventricular size, wall thickness and motion. Preserved left ventricular systolic function. LVEF is 60%. Normal valvular structure. Normal right-sided p ressure. Normal IVC with normal respiratory collapse. C. She started having a chest pain on 11/17/15 while she was working at the [employer]. She described it as a chest pressure 11/18 that radiated across the chest wa ll and was associated some shortness of breath. No palpitation, dizziness or lightheadedne ss. No sweating. She waited until 11/19/15 when she had recurrent bad chest pain that too k her to the ED of [facility] in [place]. She was found to have blood sugar of almost 1000 and troponin of 0.5. She was transferred to [facility]. D. Left heart cath on 11/21/15 showed [...] She is in a class II of [place] Heart Association functional class. There is no [...] on ce weekly by Dr. Castillo in [place]. 5. Acute kidney injury on top of the stage III chronic kidney disease A. She also seen a electrical systems drafter at [facility] but recently los t follow-up. B. EGFR is 33. 6. Obesity A. She has a poor lifestyle. 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 She does not watch what [employer] eats. 7. Inactivity 8. Noncompliance. A. Patient [...] made to ensure accuracy; however, inadvertent computerized sorority supervisor errors may be pre sent. Electronically signed [...] Clear Clear PH UA 6.0 5.0-8.0 Specific [place] 1.006 1.001-1.030 PROTEIN UA 30 mg/dL (A) [...] LCx .Since that time, she saw a cash room clerk for couple times and loss of follow-up. B. Echocardiogram on 11/20/15 showed Mild biatrial dilatation. Maria l left ventricular size, wall thickness and motion. Preserved left ventricular systolic function. LVEF is 60%. Normal valvular structure. Normal right-sided p ressure. Normal IVC with normal respiratory collapse. C. She started having a chest pain on 11/17/15 while she was working at the [employer]. She described it as a chest pressure 7/10 that radiated across the chest wa ll and was associated some shortness of breath. No palpitation, dizziness or lightheadedne ss. No sweating. She waited until 11/19/15 when she had recurrent bad chest pain that too k her to the ED of [facility] in [place]. She was found to have blood sugar of almost 1000 and troponin of 0.5. She was transferred to [facility]. D. Left heart cath on 11/21/15 showed [...] She is in a class II of [place] Heart Association functional class. There is no [...] on ce weekly by Dr. Castillo in [place]. 5. Acute kidney injury on top of the stage III chronic kidney disease A. She also seen a electrical systems drafter at [facility] but recently los t follow-up. B. EGFR is 32. 6. Obesity A. She has a poor lifestyle. 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 She does not watch what [employer] eats. 7. Inactivity 8. Noncompliance. A. Patient clearly has not started taking metformin as directed. 9. Hyperlipidemia A. she is now on Lipitor. PLAN: 1. Increase metoprolol to 50 mg twice a day to treat hypertension and CAD. Portions of this report were transcribed using voice recognition software. Every effort wa s made to ensure accuracy; however, inadvertent computerized sorority supervisor errors may be pre sent. Electronically signed by: Marissa Rouse MD 11/23/2015 13:25 Molina Medina MD - 11/23/2015 11:44 AM PD T [facility] Hospitalist Progress Note Jessie Casarez [...] Clear Clear PH UA 6.0 5.0-8.0 Specific [place] 1.006 1.001-1.030 PROTEIN UA 30 mg/dL (A) [...] as outlined above. Molina Owens 11/23/2015 11:44 [facility] Portions of this chart may have been created with [employer] voice recognition software. Occasi onal wrong-word or sound-alike substitutions may have occurred due to the inherent mary itations of voice recognition software. Please read the chart carefully and recognize, using context, where these substitutions have occurred Molina Medina MD - 11/22/2015 2:[address] [facility] Hospitalist Progress Note Jessie Casarez [...] as outlined above. Molina Owens 11/22/2015 14:38 [facility] Portions of this chart may have been created with [employer] voice recognition software. Occasi onal wrong-word or [...] Min: 93 % Max: 100 % 11/19 1901 - 11/21 0700 In: 4559 [P.O.:1200; I.V.:3091] [...] LCx .Since that time, she saw a cash room clerk for couple times and loss of follow-up. B. Echocardiogram on 11/20/15 showed Mild biatrial dilatation. Maria l left ventricular size, wall thickness and motion. Preserved left ventricular systolic function. LVEF is 60%. Normal valvular structure. Normal right-sided p ressure. Normal IVC with normal respiratory collapse. C. She started having a chest pain on 11/17/15 while she was working at the [employer]. She described it as a chest pressure 7/10 that radiated across the chest wa ll and was associated some shortness of breath. No palpitation, dizziness or lightheadedne ss. No sweating. She waited until 11/19/15 when she had recurrent bad chest pain that too k her to the ED of [facility] in [place]. She was found to have blood sugar of almost 1000 and troponin of 0.5. She was transferred to [facility]. D. Left heart cath on 11/21/15 showed [...] She is in a class II of [place] Heart Association functional class. There is no [...] on ce weekly by Dr. Castillo in [place]. 5. Acute kidney injury on top of the stage III chronic kidney disease A. She also seen a electrical systems drafter at [facility] but recently los t follow-up. B. EGFR is 32. 6. Obesity A. She has a poor lifestyle. 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 She [...] made to ensure accuracy; however, inadvertent computerized sorority supervisor errors may be pre sent. Electronically signed by: Marissa Rouse MD 11/22/2015 7:25 itMolina finney MD - 11/21/2015 12:[address] [facility] Hospitalist Progress Note Jessie Casarez [...] was found Confirmed by ALVA FLYNN MD ([id number]) on 11/21/2015 7:06:43 AM Troponin I Result [...] as outlined above. Molina Owens 11/21/2015 12:28 [facility] Portions of this chart may have been created with [employer] voice recognition software. Occasi onal wrong-word or [...] Min: 96 % Max: 100 % 11/18 700 - 11/19 1900 In: 1460 [P.O.:180; I.V.:1280] [...] LCx .Since that time, she saw a cash room clerk for couple times and loss of follow-up. B. Echocardiogram on 11/20/15 showed Mild biatrial dilatation. Maria l left ventricular size, wall thickness and motion. Preserved left ventricular systolic function. LVEF is 60%. Normal valvular structure. Normal right-sided p ressure. Normal IVC with normal respiratory collapse. C. She started having a chest pain on 11/17/15 while she was working at the [employer]. She de scribed it as a chest pressure 7/10 that radiated across the chest wall and was associated s ome shortness of breath. No palpitation, dizziness or lightheadedness. No sweating. Shelby anaya waited until 11/19/15 when she had recurrent bad chest pain that took her to the ED of [facility] in [place]. She was found to have blood sugar of almost 1000 and tropon in of 0.5. She was transferred to [facility]. D. Patient had chest pain/chest pressure 5/10 this morning around 5:00 that was relieved by one tablet on nitroglycerin. She is now chest pain free and breathing normally. EKG showed nonspecific ST-T abnormalities. There is no signs and symptoms of overt congestive heart failure. She is in a class II of [place] Heart Association functional class. There is no [...] feel obligated to take her to the mechanical laboratory technician sooner than later. There is a good [...] on ce weekly by Dr. Castillo in [place]. 4. Acute kidney injury on top of the stage III chronic kidney disease A. She also seen a electrical systems drafter at [facility] but recently los t follow-up. B. Kidney function is not much better today. She is hanging between stage III and stage I V she daily. 5. Obesity A. She has a poor lifestyle. 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 She does not watch what sh e eats. 6. Inactivity 7. Noncompliance. A. Patient clearly has not started taking metformin as directed. 8. Hyperlipidemia A. she is now on Lipitor. PLAN: I spend time at length talking about natural course, treatment and prognosis of non-STEMI with recurrent chest pain. She will be taken to the mechanical laboratory technician for angiogram today.The risks and benefits of the procedu re including alternative treatment were discussed with the patient in length. The patient de cides to proceed with the procedure. Portions of this report were transcribed using voice recognition software. Every effort wa s made to ensure accuracy; however, inadvertent computerized sorority supervisor errors may be pre sent. Electronically signed by: Marissa Rouse MD 11/21/2015 6:16 Molina Medina MD - 11/20/2015 1:[address] [facility] Hospitalist Progress Note Jessie Casarez is a 50 y.o. female SUBJECTIVE: Examined by me this afternoon. Patient with known CAD and 2 previous stents 2012, transferr ed from [facility] with chest pain and elevated Tpn. She [...] was found Confirmed by GEE PERALES, ALVA ([id number]) on 11/20/2015 8:05:17 AM CBC with Differential [...] as outlined above. Molina Owens 11/20/2015 13:12 [facility] Portions of this chart may have been created with [employer] voice recognition software. Occasi onal wrong-word or sound-alike substitutions may have occurred due to the inherent mary itations of voice recognition software. Please read the chart carefully and recognize, using context, where these substitutions have occurred eyer, Hali Lazar D - 11/20/2015 6:19 AM PDT [facility] [place] BRIEF NOTE Patient: Jessie Casarez : 1965: Age: 50 y.o. MedRec: [id number] Admission date: 11/20/2015 Hospital day # : [...] does taylor Whitley sees Dr Castillo in [facility] 6 months with labs and does Eddyira once a week on Fridays Car RRR Lung rhonchi NO wheezing Abd soft NT No more CHP Spoke with Dr Beavers whom will consult STOP Prednisone Wagner Chamorro MD 11/20/2015 6:19 [facility] Dot phrase reference: VSHOSP (VS in table, last 24 hours) MEYLAB (various labs to pull in) DT (date and time) LABRCNTIP[K:3,Na:3 (last 3 sets of labs using potassium and sodium as examples) HGB HCT PLT INR GLU POCGLU Na K BUN CREA, CALCIUM TROPONINI BNP DIGOXIN DDIMERQUANT Portions of this chart may have been created with [employer] voice recognition software. Occasi onal wrong-word or sound-alike substitutions may have occurred due to the inherent mary itations of voice recognition software. Please read the chart carefully and recognize, using context, where these substitutions have occurred documented in this en counter H&P Notes Victoriano Morales DO - 11/20/2015 3:15 AM PDTFormatting of this note might be different f rom the original. [facility] HISTORY & PHYSICAL Patient: Jessie Casarez : 1965: Age: 50 y.o. MedRec: [id number] PCP: Kyle Richey DO Admission date: 11/20/2015 Hospital day #: 0 Physician author: Victoriano Morales, Today: 11/20/2015 CHIEF COMPLAINT: Chest pain since 11/16 HISTORY OF PRESENT ILLNESS: This is a 50 y.o. female with a history of CAD status post left circumflex stent placement in 2012 at [facility], diabetes which patient says she was told was borderline, COPD who present ed to [facility] with above complaint. According the patient on [...] pain episodes. Patient was initially evaluated at [facility] emergency department where on blo od work [...] very [place] on Friday and she is worried about missing that. 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 pleural effusion, + for TB, treated with DOT through [facility] Dept RA (rheumatoid arthritis) ([facility]) 2001 Pleural effusion 10/2011, 11/2011 secondary to RA?, negative for TB 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 MN (myocardial infarction) ([facility]) 11/2012 CAD (coronary artery disease) CKD (chronic kidney disease) Tubal Obesity Acid reflux disease Past Surgical History Procedure Laterality Date Coronary angioplasty with stent placement 11/2012 Left Circumflex BMS x 1 at [facility] Cholecystectomy Salpingectomy Left for ectopic [...] cold symptoms she was having some [facility] from severe coughing. She was started on prednisone taper by her PCP on her previous visit and is currently retirement through the taper. Questions asked in ROS [...] ALT 40 AST 46* Recent Labs Lab 11/20/15156 BNP 230* Recent Labs Lab 07/11/16 0157 MG 2.1 Recent Labs Lab 11/20/15 0157 PHOS 4.9* No results for input(s): AMYLASE, LIPASE in the last 168 hours. No results for input(s): AMMONIA in the last 168 hours. No results for input(s): CK, CKMB in the last 168 hours. Invalid input(s): TROPONINI, CKTOTAL No results for input(s): PHART, PO2ART, QHX7PGT, PNA2FNY, BEART, V1UYRGBI in the last 168 h ours. No results for input(s): SPECSOURCE, PHPOCB, HCO3, TCO2, BEART, BE, MOED2EWQ in the last 16 8 hours. Invalid input(s): VOKEO5AN, TJXS5MU (dot meylab) Xray Results: No results found. [...] was 65 minutes. Electronically signed by: Victoriano Morales, 11/20/2015 3:[address] [facility] Dot phrase reference: VSHOSP (VS in table, last 24 hours) MEYLAB (various labs to pull in) DT (date and time) LABRCNTIP[K:3,Na:3 (last 3 sets of labs using potassium and sodium as examples) HGB HCT PLT INR GLU POCGLU Na K BUN CREA, CALCIUM TROPONINI BNP DIGOXIN Portions of this chart may have been created with [employer] voice recognition software. Occasi onal wrong-word or [...] Jessie Casarez, (1965) DATE OF PROCEDURE: 11/21/2015 FORMING ROLL OPERATOR HEAVY DUTY: Marissa Rouse MD PROCEDURES PERFORMED: Coronary Angiography [...] PDTAssociated Order(s): IP CONSULT TO DIABETE S SPECIALISTDiana was given a [employer] Contour glucometer and tested with ease with results of 121 before dinner.She will need an RX for ongoing testing supplies as well as a referral for outpatient education upon discharge. They are showing an interest in controlling her blo od glucose. She is registered for the December [place] group session and her also plan s to attend. Her speaks Central African only so teaching was conducted in Central African and all alberto ndouts were given to them in Central African and Serbian including a comprehensive diabetic educatio n booklet [...] Barb Varela RN at 016 9:00 AM aMrissa Araya MD - 11/20/2015 8:18 AM PDT [...] inactivity, nonco mpliance. She was admitted to [facility] on 11/20/2015 for Non-ST el evation myocardial infarction (NSTEMI), initial episode of care . She had non-STEMI and underwent PTCA and stents 2 in 2012 at [facility]. Since that time, she saw a cash room clerk for couple times and loss of follow-up. About 2 weeks ago, she had a head cold associated with cough and was seen by Dr. Richey, he r PCP at [facility]. Her symptoms did not respond to azithromycin pack. She was pu t on prednisone 40 mg a day starting on November 14, 2015. She started having a chest pain on 11/17/15 while she was working at the [employer]. She describ ed it as a chest pressure /10 that radiated across the chest wall and was associated some s hortness of breath. No palpitation, dizziness or lightheadedness. No sweating. She waited until 11/19/15 when she had recurrent bad chest pain that took her to the ED of [facility] in [place]. She was found to have blood sugar of almost 1000 and troponin of 0.5 . She was transferred to [facility]. Patient was treated with aspirin, heparin IV. She is completely chest pain-free at the [facility]. Her breathing is back to normal. She feel comfortable at this time. She has a poor lifestyle. 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 She de nies any regular exercise program. She does not watch what she eats. PAST MEDICAL HISTORY Past Medical History Diagnosis Date Chronic cough Internal hemorrhoid Extrapulmonary TB (tuberculosis) 01/[id number] pleural effusion, + for TB, treated with DOT through [facility] Dept RA (rheumatoid arthritis) ([facility]) 2001 Pleural effusion 10/2011, 11/2011 secondary to RA?, negative for TB 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 MN (myocardial infarction) ([facility]) 11/2012 CAD (coronary artery disease) CKD (chronic [...] 11/2012 Left Circumflex BMS x 1 at [facility] Cholecystectomy Salpingectomy Left 1990s for ectopic Thoracentesis 11/09/2011, 12/09/2011, 01/2012 Tonsillectomy childhood Colonoscopy 09/04/2015 FAMILY HISTORY Family History Problem Relation Age of Onset Diabetes Mother Diabetes Father Heart attack Father Diabetes Sister Arthritis Sister SOCIAL HISTORY History Social History Marital Status: Spouse Name: N/A Number of Children: N/A Years of Education: N/A Occupational History Automatic [employer] Former at the [employer] Social History Main Topics Smoking status: Former Smoker Types: Cigarettes Quit date: 06/11/2012 Smokeless tobacco: Never Used Alcohol Use: No Drug Use: No Sexual Activity: Not on file Other Topics Concern Not on file Social History Narrative Merged History Encounter Lives: in [place] With: Grew up: [place], [place], [place], [place], [...] IV INFUSIONS: heparin infusion 1,000 Units/hr (11/20/15 0007) sodium chloride 0.9% 125 mL/hr at 11/20/15 7942 ALLERGIES No Known Allergies REVIEW OF SYSTEMS [...] was found Confirmed by GEE PERALES, ALVA ([id number]) on 11/20/2015 8:05:17 AM CBC with Differential [...] the LCx.Since that time, she saw a cash room clerk for couple times and loss of follow-up. B. She started having a chest pain on 11/17/15 while she was working at the [employer]. She cong cribed it as a chest pressure 11/18 that radiated across the chest wall and was associated so me shortness of breath. No palpitation, dizziness or lightheadedness. No sweating. She wa ited until 11/19/15 when she had recurrent bad chest pain that took her to the ED of [facility] in [place]. She was found to have blood sugar of almost 1000 and troponin of 0.5. She was transferred to [facility]. Patient was treated with aspirin, heparin IV. She is completely chest pain-free at the mo ment. Her breathing is back to normal. Troponin went up to 6.3. EKG showed nonspecific S T-T abnormalities. There is no signs and symptoms of overt congestive heart failure. She is in a class II o f [place] Heart Association functional class. There is no [...] Humira once weekly by Dr. Castillo in [place]. 4. Acute kidney injury on top of the stage III chronic kidney disease A. She also seen a electrical systems drafter at [facility] but recently lost follow-up. 5. Obesity A. She has a poor lifestyle. 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 Sh e denies any regular exercise program. She does not watch what she eats. 6. Inactivity 7. Noncompliance. A. Patient clearly has not started taking metformin as directed. 8. Hyperlipidemia A. not treated. PLAN: 1. I spend time at length talking about natural course, treatment and prognosis of non-VISHAL MN with hyperosmolar syndrome and acute kidney injury [...] patient. Electronically signed by: Marissa Rouse MD [facility] 11/20/2015 8:19 Portions of this chart may have been created with [employer] voice recognition software. Occasi onal wrong-word or sound-alike substitutions may have occurred due to the inherent mary itations of voice recognition software. Please read the chart carefully and recognize, using context, where these substitutions have occurred. documented in this encounter Miscellaneous Notes Plan of Cammy Bearden RN - 11/24/2015 5:16 PM PDTPatient called at home, patient was able to get effient prescription filled. Permission given to mail effient savings card, education packet and stent card. Patient signed up for [employer] habits program. Patient to follow up with Dr. Beavers in two weeks and PCP in one week. Cammy Sahu lan of Shannan Grace RN - 11/24/2015 3:53 AM PDTProblem: Patient [...] s table. lan of Care - W Marquez, Tiana Mao RRT - 11/23/2015 2:55 PM PDTProblem: Patient [...] shift. lan of [place] - Ross Verduzco, GENERAL OPERATOR - 11/21/2015 9:31 PM PDTProblem: Patient [...] RN - 11/21/2015 12:30 PM PDTPatient to ornament stitcher via Bed. lan of [place] - Keira Marquez, GENERAL OPERATOR - 11/21/2015 10:4 5 AM PDTProblem: Patient [...] reported. lan of [facility] - Renata Flores Chaplain - 11/21/2015 10:43 AM PDTProblem: Spiritual Distress, Risk/Actua l (Adult,Obstetrics,Pediatric) Goal: Spiritual Well-being Patient will demonstrate the desired outcomes by discharge/transition of care. Spiritual Care Jessie Casarez is a 50 y.o. female who is admitted for Chest pain [R07.9]. Congressional Aide visit was part of routine rounding. Spiritual Evaluation: Patient was wanting to rest, so regional refrigerated cdl truck driver visit was brief. Pt stated she had no needs at thi s time. Spiritual Interventions: Congressional Aide assessed pt needs and offered blessing. Spiritual Outcomes: Patient did not express any spiritual needs at this time. Spiritual Goals/Follow up: Congressional Aide will visit patient as needed or requested. If any additional spiritual issues guillermo e, please contact the regional refrigerated cdl truck driver. lan of [place] - Jacques Snell RRT [...] monitor and treat as indicated. lan of [facility] Quiana Mendes RN - 11/21/2015 6:13 AM PDTPatient c/o chest pain this morning. Patient called just as it started c/0 5/10 pain. Radiating into her back. Describes it as "pressur e" MD notified. EKG done, o2 2 liters placed. Nitro paste increased. 4mg morphine total given. Patient now resting stating pain is better at A 2/10,, lan of [facility] Quiana Pereira RN - 11/20/2015 11:52 PM [...] at bedside. No complaints.Quiana Martin lan of Care - Keira Garrison RRT - 11/20/2015 5:15 [...] no shortness of breath reported. lan of Care - Mansi Lao RN - 11/20/2015 3:52 PM PDTThis met with patient Jessie Casarez and her , Carlos macdonald. They live in [place]. She states she is very independent. She states she uses [facility] [place] and [facility] for mail order prescriptions. She declines the need for any home health services. Her will be her transportation home when she is medically stable for discharge. Jessie states her main concern is that she needs to be discharged so that she can go to an a [facility] for immigration for her in [place] on 11/21/2015. I explained that she is not medically stable at this point and is not ready for discharge. I offered to contact t he person needed regarding the immigration appt. Jessie contacted Karley Lerma their kettle loader and had her contact me. A letter was done regarding the admission of Jessie and there is an unknown discharge date a t this time. Also her is needed here for medical decision making and support to his . Release of information was obtained and placed in the patients ghost chart. This letter was faxed to the kettle loader, Karley Lerma @ fax # [phone] and her contact phone # is [phone]. I called Karley to inform her that [...] now down to [address] [facility]. Troponin increased from 0.243 to 6.3. Creatinine decreased fr om 2.2 to 1.97. lan of Care - Jacques Chan, DANGELO - 11/20/2015 5:13 AM PDTProblem: Patient Care [...] Outcome: Unchanged Goal Evaluation: Ashley transferred in [facility] on 2 LPM [place] and reports [...] [address] | [place] | [phone] | | [facility] | | [address] | | | - LABORATORY | | [...] + | [facility] | [address] | [place] | [phone] | | [facility] | | [address] | | | - LABORATORY | | [...] + | [facility] | [address] | [place] | [phone] | | [facility] | | [address] | | | - LABORATORY | | [...] | | | | | | [facility] | | | | [...] not | 33 (L)Comment: | >=60 | [facility] | | | | GLOMERULAR FILTRATION | mL/min/1.73m2 | [facility] | | | [place] | RATE,ESTIMATED | | MEDICAL | | | | mL/min/1.03m6Tnvz than | | CENTER - | | [...] | [address] | [place], [place] | [phone] | | [facility] | | [address] | | | - [...] | Basophils | | K/uL | [facility] | [...] [address] | [place] | [phone] | | [facility] | | [address] | | | - LABORATORY | | [...] + | [facility] | [address] | [place] | [phone] | | [facility] | | [address] | | | - LABORATORY | | [...] [address] | [place] | [phone] | | [facility] | | [address] | | | - LABORATORY | | | | + + + + + POC Glucose (11/23/2015 11:24 AM PDT) + +-------+ + + + | Component | Value | Ref Range | Performed | Pathologist | | | | | At | Signature | + +-------+ + + + | Glucose, | 130 | 70 - 150 mg/dL | [facility] [...] [address] | [place] | [phone] | | [facility] | | [address] | | | - LABORATORY | | [...] INTERVENTION PATIENT NAME: | | | Jessie Glez OF : 1965MEDICAL RECORD NUMBER: | | | [id number] OF PROCEDURE: 12/02/2015 | | | | | | PRIMARY CARE PROVIDER: KALEN Martinez | | | SPECIAL MAKEUP FX ARTIST INSTRUCTOR: Dr. Ray Bell MD, [facility]. PRE-PROCEDURE DIAGNOSIS: | | | 80% [...] femoral artery. A 6 | | | Czech Edgar right guiding catheter was inserted in [...] | of 6 months. Ray Bell MD, [facility], [facility] | | | CenterDATE/TIME: 12/02/2015 9:247/ 9:24 Portions of this chart | | | were created with [employer] voice recognition software. Occasional | | | [...] | | | | |Ray Bell MD, [facility], | | |[facility] | | |DATE/TIME: 12/02/2015 9:24 | | |12/02/2015 9:24 | | | | | |Portions of this chart were created with [employer] voice recognition | | |software. Occasional wrong-word [...] 16 | 7 - 18 mg/dL | [facility] | | | | | [facility] | | | | | | MEDICAL | | | | | | CENTER - | | | | | | LABORATORY | | + + + + + + | Creatinine | 1.64 (H) | 0.60 - 1.30 | [facility] | | | | | mg/dL | [facility] | | | | | | MEDICAL | | | | | | CENTER - | | | | | | LABORATORY | | + + + + + + | eGFR if not | 33 (L)Comment: | >=60 | [place] | | | | GLOMERULAR FILTRATION | mL/min/1.73m2 | [facility] | | | [place] | RATE,ESTIMATED | | MEDICAL | | | | mL/min/1.97p7Kcif than | | CENTER - | | [...] | | | | | mg/dL | [facility] | | | | | | MEDICAL [...] [address] | [place] | [phone] | | [facility] | | [address] | | | - LABORATORY | | [...] | | | Cells | | | . WEST | | [...] [address] | [place] | [phone] | | [facility] | | [address] | | | - LABORATORY | | [...] [address] | [place] | [phone] | | [facility] | | [address] | | | - LABORATORY | | [...] [address] | [place] | [phone] | | [facility] | | [address] | | | - LABORATORY | | [...] [address] | [place] | [phone] | | [facility] | | [address] | | | - LABORATORY | | | | + + + + + POC Glucose (11/22/2015 6:12 PM PDT) + +-------+ + + + | Component | Value | Ref Range | Performed | Pathologist | | | | | At | Signature | + +-------+ + + + | Glucose, | 116 | 70 - 150 mg/dL | [facility] [...] | [address] | [place], [place] | [phone] | | [facility] | | [address] | | | - LABORATORY | | [...] - 1.030 | [facility] | | | [place], | | | [facility] | | [...] | + + + + + | [facility] | [address] | [place] | [phone] | | [facility] | | [address] | | | - LABORATORY | | [...] [address] | [place] | [phone] | | [facility] | | [address] | | | - LABORATORY | | [...] [address] | [place] | [phone] | | [facility] | | [address] | | | - LABORATORY | | [...] | | Blood in | | | [facility] | | | 2nd | | | [...] | [address] | [place] | [phone] | | [facility] | | [address] | | | - LABORATORY | | | | + + + + + POC Glucose (11/22/2015 8:30 AM PDT) + +-------+ + + + | Component | Value | Ref Range | Performed | Pathologist | | | | | At | Signature | + +-------+ + + + | Glucose, | 139 | 70 - 150 mg/dL | [facility] [...] [address] | [place] | [phone] | | [facility] | | [address] | | | - LABORATORY | | [...] 1.67 (H) | 0.60 - 1.30 | [facility] | | | | | mg/dL | [facility] | | | | | | MEDICAL | | | | | | CENTER - | | | | | | LABORATORY | | + + + + + + | eGFR if not | 32 (L)Comment: | >=60 | [facility] | | | | GLOMERULAR FILTRATION | mL/min/1.73m2 | [facility] | | | [place] | RATE,ESTIMATED | | MEDICAL | | | | mL/min/1.85y1Pfhr than | | CENTER - | | [...] + | [facility] | [address] | [place] | [phone] | | [facility] | | [address] | | | - LABORATORY | | [...] | | Cells | | | [facility] | | [...] | | Eosinophils | | | [facility] | | [...] | Basophils | | K/uL | [facility] | [...] + | [facility] | [address] | [place] | [phone] | | [facility] | | [address] | | | - LABORATORY | | | | + + + + + POC Glucose (11/21/2015 8:56 PM PDT) + +-------+ + + + | Component | Value | Ref Range | Performed | Pathologist | | | | | At | Signature | + +-------+ + + + | Glucose, | 107 | 70 - 150 mg/dL | [facility] [...] [address] | [place] | [phone] | | [facility] | | [address] | | | - LABORATORY | | [...] | | Consistent with previous | | [facility] | | | | results. Reference | [...] | | | | | | [employer] | | | | | [...] [address] | [place] | [phone] | | [facility] | | [address] | | | - LABORATORY | | [...] | [address] | [place] | [phone] | | [facility] | | [address] | | | - LABORATORY | | [...] (1965) OF PROCEDURE: | | | 11/21/2015 FORMING ROLL OPERATOR HEAVY DUTY: Marissa Rouse MD PROCEDURES | | | [...] nephropathy.. [facility] | | | PROVIDER:Kyle Richey, DO | | |Ao - 173/98 mm [...] [address] | [place] | [phone] | | [facility] | | [address] | | | - LABORATORY | | [...] | | | | | | [employer] | | | | | [...] [address] | [place] | [phone] | | [facility] | | [address] | | | - LABORATORY | | [...] [address] | [place] | [phone] | | [facility] | | [address] | | | - LABORATORY | | [...] | | | | | results. [employer] | | | | | | [employer] [...] [address] | [place] | [phone] | | [facility] | | [address] | | | - LABORATORY | | [...] | | | | ALVA FLYNN MD ([id number]) | | | | | | on [...] (L) | 20.0 - 55.0 % | [facility] | | | SATURATION | | | [facility] [...] [address] | [place] | [phone] | | [facility] | | [address] | | | - LABORATORY | | [...] (H) | 7 - 18 mg/dL | [facility] | | | | | | [facility] | | | | | | MEDICAL | | | | | | CENTER - | | | | | | LABORATORY | | + + + + + + | Creatinine | 1.72 (H) | 0.60 - 1.30 | [place] | | | | | mg/dL | [facility] | | | | | | MEDICAL | | | | | | CENTER - | | | | | | LABORATORY | | + + + + + + | eGFR if not | 31 (L)Comment: | >=60 | [place] | | | | GLOMERULAR FILTRATION | mL/min/1.73m2 | [facility] | | | [place] | RATE,ESTIMATED | | MEDICAL | | | | mL/min/1.26c2Jtuv than | | CENTER - | | [...] + | [facility] | [address] | [place] | [phone] | | [facility] | | [address] | | | - LABORATORY | | [...] | | | Anticoagulation Range: | | [facility] | | | | 2.0 - 3.0High [...] [address] | [place] | [phone] | | [facility] | | [address] | | | - LABORATORY | | [...] + | [facility] | [address] | [place] | [phone] | | [facility] | | [address] | | | - LABORATORY | | [...] | [address] | [place] | [phone] | | [facility] | | [address] | | | - LABORATORY | | [...] [address] | [place] | [phone] | | [facility] | | [address] | | | - LABORATORY | | [...] + | [facility] | [address] | [place] | [phone] | | [facility] | | [address] | | | - LABORATORY | | [...] | | Consistent with Previous | | [facility] | | | | Results Reference [...] | | | | | | [employer] | | | | | [...] + | [facility] | [address] | [place] | [phone] | | [facility] | | [address] | | | - LABORATORY | | [...] [address] | [place] | [phone] | | [facility] | | [address] | | | - LABORATORY | | [...] 451 A | | | Patient Number [id number] Date of Study | | | 11/20/2015 Visit Number [id number] Accession | | | [id number] Referring Physician ALCIRA Hartman Number | | | Date of 1965 [employer] | | | SUMA AHUMADA Age 50 year(s) | | | Interpreting PADMA WOLF | | | Pocket Cutter MARISSA ROUSE, | | | | | | Gender Female Nurse | | | Procedure Type of Study TTE procedure: ECHO Complete. Procedure | | | dateDate: 11/20/2015Start: 09:15 AM Indications: ACUTE CORONARY | | | SYNDROME and myocardial Infarction, MCIKAB815.90/I21.4. Height: 62 | | | inchesWeight: 209.88 [...] Number 451 | | A Patient Number [id number] Date of Study 11/20/2015 Visit Number | | [id number] Referring Physician ALCIRA Hartman | | Number Date of 1965 [employer] SUMA AHUMADA Age | | 50 year(s) Interpreting PADMA WOLF | | Pocket Cutter MARISSA ROUSE, | | Gender Female NurseProcedureType of Study TTE | | procedure: ECHO Complete.Procedure dateDate: 11/20/2015Start: 09:15 AMIndications: ACUTE | | CORONARY SYNDROME and myocardial Infarction, VZBSCL925.90/I21.4.Height: 62 | | inchesWeight: 209.88 poundsBSA: 1.95 [...] | | | | mmol/L | [facility] | | | | | | MEDICAL [...] not | 28 (L)Comment: | >=60 | [facility] | | | | GLOMERULAR FILTRATION | mL/min/1.73m2 | [facility] | | | [place] | RATE,ESTIMATED | | MEDICAL | | | | mL/min/1.47y5Rwzp than | | CENTER - | | [...] | [address] | [place] | [phone] | | [facility] | | [address] | | | - LABORATORY | | [...] | | | | | | [employer] | | | | | [...] [address] | [place] | [phone] | | [facility] | | [address] | | | - LABORATORY | | [...] [address] | [place] | [phone] | | [facility] | | [address] | | | - LABORATORY | | [...] + | [facility] | [address] | [place] | [phone] | | [facility] | | [address] | | | - LABORATORY | | [...] | Time | | seconds | [facility] | | | | | | MEDICAL | | | | | | CENTER - | | | | | | LABORATORY | | + + + + + + | INR | 1.02Comment: Usual Oral | 0.90 - 1.10 | [facility] | | | | Anticoagulation Range: | | [facility] | | | | 2.0 - 3.0High [...] [address] | [place] | [phone] | | [facility] | | [address] | | | - LABORATORY | | [...] | + + + + + | [facility] | [address] | [place] | [phone] | | [facility] | | [address] | | | - LABORATORY | | [...] [address] | [place] | [phone] | | [facility] | | [address] | | | - LABORATORY | | [...] + | [facility] | [address] | [place] | [phone] | | [facility] | | [address] | | | - LABORATORY | | | | + + + + + Folate (11/20/2015 1:57 AM PDT) + +---------+ + + + | Component | Value | Ref Range | Performed | Pathologist | | | | | At | Signature | + +---------+ + + + | FOLATE | 5.0 (L) | >5.8 ng/mL | [facility] | | | | | | [facility] [...] + | [facility] | [address] | [place] | [phone] | | [facility] | | [address] | | | - LABORATORY | | | | + + + + + Vitamin B-12 (11/20/2015 1:57 AM PDT) + + + + + + | Component | Value | Ref Range | Performed | Pathologist | | | | | At | Signature | + + + + + + | VITAMIN | 467Comment: DEFICIENT: | 180 - 914 pg/mL | [facility] | | | B-12 | <145 | | [facility] | | | | pg/mLINDETERMINATE: | [...] [address] | [place] | [phone] | | [facility] | | [address] | | | - LABORATORY | | [...] + | [facility] | [address] | [place] | [phone] | | [facility] | | [address] | | | - LABORATORY | | [...] | | | | | mg/dL | [facility] | | | | | | [...] [address] | [place] | [phone] | | [facility] | | [address] | | | - LABORATORY | | [...] | | | Estimate | | | [facility] | | [...] Bands seen. | [facility] | | | [facility] | | | [facility] | | | - LABORATORY | + + + + + + + + | Performing | Address | City/State/Zipcode | Phone Number | | Organization | | | | + + + + + | [facility] | [address] | [place] | [phone] | | [facility] | | [address] | | | - LABORATORY | | [...] + | [facility] | [address] | [place] | [phone] | | [facility] | | [address] | | | - LABORATORY | | [...] | | | | mg/dL | [facility] | | | | | | MEDICAL | | | | | | CENTER - | | | | | | LABORATORY | | + + + + + + | eGFR if not | 27 (L)Comment: | >=60 | [facility] | | | | GLOMERULAR FILTRATION | mL/min/1.73m2 | [facility] | | | [place] | RATE,ESTIMATED | | MEDICAL | | | | mL/min/1.34c9Riqw than | | CENTER - | | [...] | 9.1 | 8.3 - 10.5 | [facility] | | | | | mg/dL | [...] [address] | [place] | [phone] | | [facility] | | [address] | | | - LABORATORY | | [...] | | Hydroxybuty | | mmol/L | [facility] | | | rate | | [...] [address] | [place] | [phone] | | [facility] | | [address] | | | - LABORATORY | | [...] [address] | [place] | [phone] | | [facility] | | [address] | | | - LABORATORY | | [...] | | A1c | | | [facility] | | [...] [address] | [place] | [phone] | | [facility] | | [address] | | | - LABORATORY | | | | + + + + + Magnesium (11/20/2015 1:57 AM PDT) + +-------+ + + + | Component | Value | Ref Range | Performed | Pathologist | | | | | At | Signature | + +-------+ + + + | Magnesium | 2.1 | 1.8 - 2.5 mg/dL | [facility] | | | | [...] + | [facility] | [address] | [place] | [phone] | | [facility] | | [address] | | | - LABORATORY | | [...] [facility] | | | | | | [facility] | | | | | | MEDICAL [...] + | [facility] | [address] | [place] | [phone] | | [facility] | | [address] | | | - LABORATORY | | | | + + + + + Lipid Panel (11/20/2015 1:57 AM PDT) + + + + + + | Component | Value | Ref Range | Performed | Pathologist | | | | | At | Signature | + + + + + + | Triglycerid | 304 (H) | 35 - 160 mg/dL | [facility] | | | es | | | [facility] | | | | | | MEDICAL | | | | | | CENTER - | | | | | | LABORATORY | | + + + + + + | Cholesterol | 257 (H) | 150 - 200 mg/dL | [facility] | | | | | | [facility] | | | | | | MEDICAL | | | | | | CENTER - | | | | | | LABORATORY | | + + + + + + | HDL | 50Comment: New HDL | 28 - 83 mg/dL | [facility] | | | | Reference Range as of | | [facility] | | | | January 19, 2015 | | MEDICAL | | | | Values may be 10-20% | | CENTER - | | | | lower with new, | | LABORATORY | | | | standardized method. | | | | + + + + + + | Chol/HDL | 5.1 | | [facility] | | | Ratio | | | [facility] | | | | | | MEDICAL | | | | | | CENTER - | | | | | | LABORATORY | | + + + + + + | LDL, | 146 (H) | <=130 mg/dL | [facility] | | | Calculated | | | [facility] | | [...] [address] | [place] | [phone] | | [facility] | | [address] | | | - LABORATORY | | [...] | | | | | [employer] | | | | | | [employer] [...] + + | Performing | Address | City/State/[facility]code | Phone Number | | Organization | | | | + + + + + | [facility] | [address] | [place] | [phone] | | [facility] | | [address] | | | - LABORATORY | | [...] [address] | [place] | [phone] | | [facility] | | [address] | | | - LABORATORY | | [...] | | | | ALVA FLYNN MD ([id number]) | | | | | | on [...] | chromogenic agar method | | [facility] | | | [...] | [address] | [place] | [phone] | | [facility] | | [address] | | | - LABORATORY | | [...] + | Diagnosis | + + | Non-ST elevation myocardial infarction (NSTEMI), initial episode of care (HCC) - | | Primary Acute myocardial infarction, subendocardial infarction, initial episode of care | + + | Acute kidney injury superimposed on chronic kidney disease (HCC) | + + | Coronary artery disease involving rampart coronary artery of rampart heart, angina | | presence unspecified | + + | Chronic obstructive pulmonary disease, unspecified COPD type (HCC) | + + | Elevated troponin I level Other abnormal blood chemistry | + + | Leukocytosis, unspecified type | + + | Microcytic anemia Iron deficiency anemia, unspecified | + + | Rheumatoid arthritis, involving unspecified site, unspecified rheumatoid factor | | presence (HCC) | + + | Suspected sleep apnea | + + | Uncontrolled diabetes mellitus with hyperglycemia (HCC) | + + | CAD (coronary artery disease) Coronary atherosclerosis of unspecified type of vessel, | | rampart or graft | + + documented in this encounter Administered Medications + +--------+ +--------+------+------+ | Medication Order | MAR | Action | Dose | Rate | Site | | | Action | Date | | | | + +--------+ +--------+------+------+ | acetaminophen (TYLENOL) tablet | Given | 11/20/19 | 650 mg | | | | 650 mg 650 mg, Oral, EVERY 4 | | 16 4:22 | | | | | HOURS PRN, Pain, or fever >= 38.3 | | AM PDT | | | | | C (101.5 F), Starting Mon | | | | | | | 11/20/15 at 0357 | | | | | | + +--------+ +--------+------+------+ +---+---+ | | | +---+---+ + +-------+ +--------+---+---+ | aspirin EC tablet 325 mg 325 | Given | 11/24/19 | 325 mg | | | | mg, Oral, DAILY, First dose on | | 16 9:18 | | | | | 11/20/15 at 0900, Do not cut | | AM PDT | | | | | or crush., | | | | | | + +-------+ +--------+---+---+ +-------+ +--------+---+---+ | Given | 11/23/19 | 325 mg | | | | | 16 11:14 | | | | | | AM PDT | | | | +-------+ +--------+---+---+ | Given | 11/22/19 | 325 mg | | | | | 16 10:17 | | | | | | AM PDT | | | | +-------+ +--------+---+---+ +---+---+ | | | +---+---+ + +-------+ +-------+---+---+ | atorvaSTATin (LIPITOR) tablet | Given | 11/23/19 | 20 mg | | | | 20 mg 20 mg, Oral, NIGHTLY, | | 16 9:17 | | | | | First dose on Fri11/20/15 at 2100 | | PM PDT | | | | + +-------+ +-------+---+---+ +-------+ +-------+---+---+ | Given | 11/22/19 | 20 mg | | | | | 16 8:57 | | | | | | PM PDT | | | | +-------+ +-------+---+---+ | Given | 11/21/19 | 20 mg | | | | | 16 8:09 | | | | | | PM PDT | | | | +-------+ +-------+---+---+ +---+---+ | | | +---+---+ + +-------+ +--------+---+ + | enoxaparin (LOVENOX) 100 mg/mL | Given | 11/20/19 | 100 mg | | Abdomen- | | injection 100 mg 100 mg (rounded | | 16 9:50 | | | RLQ | | from 95.2 mg = 1 mg/kg | | AM PDT | | | | | 95.2 kg), Subcutaneous, ONCE, | | | | | | | 11/20/15 at 0915, For 1 dose | | | | | | + +-------+ +--------+---+ + +---+---+ | | | +---+---+ + +-------+ +--------+---+ + | enoxaparin (LOVENOX) 100 mg/mL | Given | 11/23/19 | 100 mg | | Abdomen- | | injection 100 mg 100 mg (rounded | | 16 11:16 | | | LLQ | | from 95.2 mg = 1 mg/kg | | AM PDT | | | | | 95.2 kg), Subcutaneous, EVERY 24 | | | | | | | HOURS (Daily), First dose (after | | | | | | | last reorder) on Fri11/21/15 at | | | | | | | 0900 | | | | | | + +-------+ +--------+---+ + +-------+ +--------+---+ + | Given | 11/22/19 | 100 mg | | Abdomen- | | | 16 10:17 | | | RUQ | | | AM PDT | | | | +-------+ +--------+---+ + +---+---+ | | | +---+---+ + +-------+ +-------+---+ + | enoxaparin (LOVENOX) 40 mg/0.4 | Given | 11/24/19 | 40 mg | | Abdomen- | | mL injection 40 mg 40 mg, | | 16 10:08 | | | RLQ | | Subcutaneous, EVERY 24 HOURS | | AM PDT | | | | | (Daily), First dose on Fri | | | | | | | 11/24/15 at 0900 | | | | | | + +-------+ +-------+---+ + +---+---+ | | | +---+---+ + +-------+ +--------+---+---+ | heparin 1,000 units/mL | Given | 11/20/19 | 4,000 | | | | injection 4,000 Units 4,000 | | 16 3:43 | Units | | | | Units, Intravenous, ONCE, Mon | | AM PDT | | | | | 11/20/15 at 0345, For 1 dose, | | | | | | | Heparin Protocol - Cardiac Dose | | | | | | | Initial Bolus Give heparin 4,000 | | | | | | | units x1 (60 units/kg IV x 1, | | | | | | | round to nearest 100 units, max | | | | | | | 4000 units), | | | | | | + +-------+ +--------+---+---+ +---+---+ | | | +---+---+ + +---------+ + + +---+ | heparin in half-normal saline | New Bag | 11/20/19 | 1,000 | 20 mL/hr | | | 50 units/mL infusion 0-3,000 | | 16 3:51 | Units/hr | | | | Units/hr (0-60 mL/hr), at 0-60 | | AM PDT | | | | | mL/hr, Intravenous, TITRATED, | | | | | | | Starting 11/20/15 at 0345, Use | | | | | | | actual body weight to calculate | | | | | | | dose Round infusion dose to | | | | | | | nearest 50 units/hr. Round bolus | | | | | | | dose to nearest 100 units. | | | | | | | CARDIAC DOSE HEPARIN PROTOCOL | | | | | | | STARTING heparin infusion dose | | | | | | | 1,000 units/hr (12 units/kg/hr, | | | | | | | initial rate max 1,000 units/hr). | | | | | | | Draw APTT from an IV site other | | | | | | | than heparin IV site 6 hours | | | | | | | after starting a heparin | | | | | | | infusion. PTT Nomogram for | | | | | | | ADJUSTING heparin APTT < 46 | | | | | | | seconds: Bolus 4,000 units & | | | | | | | increase rate by 200 units/hr | | | | | | | Repeat APTT 6 hr after change | | | | | | | APTT 46-60 seconds: Bolus 2,000 | | | | | | | units & increase rate by 100 | | | | | | | units/hr Repeat APTT 6 hr after | | | | | | | change APTT 61-98 seconds: No | | | | | | | bolus or rate change. Repeat | | | | | | | in AM. APTT 99-126 seconds: | | | | | | | Decrease rate by 100 units/hr | | | | | | | Repeat APTT 6 hr after change | | | | | | | APTT 127-149 seconds: Stop | | | | | | | infusion 60 minutes then recheck | | | | | | | APTT. When APTT is 126 or less, | | | | | | | restart heparin at decreased | | | | | | | rate by 200 units/hr. Repeat | | | | | | | APTT 6 hr after change., | | | | | | + +---------+ + + +---+ +---+---+ | | | +---+---+ + +-------+ + +---+ + | insulin glargine (LANTUS | Given | 11/20/19 | 10 Units | | Arm-Left | | SOLOSTAR) 100 units/mL injection | | 16 4:45 | | | Upper | | (pen) 10 Units 10 Units, | | AM PDT | | | | | Subcutaneous, ONCE, Fri11/20/15 | | | | | | | at 0400, For 1 dose, For | | | | | | | subcutaneous use only. Basal | | | | | | | (long acting) insulin., | | | | | | + +-------+ + +---+ + +---+---+ | | | +---+---+ + +-------+ +---------+---+ + | insulin lispro (humaLOG | Given | 11/24/19 | 6 Units | | Arm-Righ | | KWIKPEN) 100 units/mL injection | | 16 10:01 | | | t Upper | | (pen) 0-18 Units 0-18 Units, | | AM PDT | | | | | Subcutaneous, 4 TIMES DAILY WITH | | | | | | | MEALS & NIGHTLY, First dose on | | | | | | | Fri11/20/15 at 0800, CORRECTION | | | | | | | SCALE: Blood Glucose (BG) < | | | | | | | 150: None BG | | | | | | | 150-200: DAY: 3 units. NIGHT: | | | | | | | 0 units BG 201-250: DAY: 6 | | | | | | | units. NIGHT: 3 units BG | | | | | | | 251-300: DAY: 9 units. NIGHT: | | | | | | | 6 units BG 301-350: DAY: 12 | | | | | | | units. NIGHT: 9 units BG | | | | | | | 351-400: DAY: 15 units. NIGHT: | | | | | | | 12 units BG > 400 : DAY: 18 | | | | | | | units. NIGHT: 15 units | | | | | | | AND CALL PROVIDER | | | | | | | Use DAY DOSE for doses | | | | | | | scheduled: AC, NPO, Daytime | | | | | | | [id number] Use NIGHT DOSE for | | | | | | | doses scheduled: HS, 3AM, | | | | | | | Nighttime [id number], | | | | | | + +-------+ +---------+---+ + +-------+ +---------+---+ + | Given | 11/22/19 | 3 Units | | Arm-Righ | | | 16 8:57 | | | t Upper | | | PM PDT | | | | +-------+ +---------+---+ + | Given | 11/22/19 | 9 Units | | Arm-Righ | | | 16 12:50 | | | t Upper | | | PM PDT | | | | +-------+ +---------+---+ + +---+---+ | | | +---+---+ + +-------+ + +---+---+ | insulin regular (humuLIN R, | Given | 11/20/19 | 10 Units | | | | novoLIN R) injection 10 Units 10 | | 16 4:41 | | | | | Units, Intravenous, ONCE, Mon | | AM PDT | | | | | 11/20/15 at 0400, For 1 dose | | | | | | + +-------+ + +---+---+ +---+---+ | | | +---+---+ + +---------+ +--------+-------+---+ | iron sucrose (VENOFER) 400 mg | New Bag | 11/21/19 | 400 mg | 108 | | | in sodium chloride 0.9% 250 mL | | 16 8:30 | | mL/hr | | | IVPB 400 mg, Intravenous, | | AM PDT | | | | | Administer over 150 Minutes, | | | | | | | ONCE, 11/21/15 at 0815, For 1 | | | | | | | dose | | | | | | + +---------+ +--------+-------+---+ +---+---+ | | | +---+---+ + +-------+ +---------+---+---+ | metoprolol tartrate (LOPRESSOR) | Given | 11/21/19 | 12.5 mg | | | | tablet 12.5 mg 12.5 mg, Oral, 2 | | 16 8:09 | | | | | TIMES DAILY, First dose on Mon | | PM PDT | | | | | 11/20/15 at 0915, Hold if SBP is | | | | | | | less than 90, | | | | | | + +-------+ +---------+---+---+ +-------+ +---------+---+---+ | Given | 11/21/19 | 12.5 mg | | | | | 16 9:42 | | | | | | AM PDT | | | | +-------+ +---------+---+---+ | Given | 11/20/19 | 12.5 mg | | | | | 16 9:14 | | | | | | PM PDT | | | | +-------+ +---------+---+---+ +---+---+ | | | +---+---+ + +-------+ +-------+---+---+ | metoprolol tartrate (LOPRESSOR) | Given | 11/23/19 | 25 mg | | | | tablet 25 mg 25 mg, Oral, 2 | | 16 11:14 | | | | | TIMES DAILY, First dose (after | | AM PDT | | | | | last modification) on Fri11/22/15 | | | | | | | at 0900, Hold if SBP is less | | | | | | | than 90, | | | | | | + +-------+ +-------+---+---+ +-------+ +-------+---+---+ | Given | 11/22/19 | 25 mg | | | | | 16 8:57 | | | | | | PM PDT | | | | +-------+ +-------+---+---+ | Given | 11/22/19 | 25 mg | | | | | 16 10:16 | | | | | | AM PDT | | | | +-------+ +-------+---+---+ +---+---+ | | | +---+---+ + +-------+ +-------+---+---+ | metoprolol tartrate (LOPRESSOR) | Given | 11/23/19 | 25 mg | | | | tablet 25 mg 25 mg, Oral, ONCE, | | 16 1:52 | | | | | [facility] 11/23/15 at 1400, For 1 dose | | PM PDT | | | | + +-------+ +-------+---+---+ +---+---+ | | | +---+---+ + +-------+ +-------+---+---+ | metoprolol tartrate (LOPRESSOR) | Given | 11/24/19 | 50 mg | | | | tablet 50 mg 50 mg, Oral, 2 | | 16 9:18 | | | | | TIMES DAILY, First dose (after | | AM PDT | | | | | last modification) on [facility] 11/23/15 | | | | | | | at 2100, Hold if SBP is less | | | | | | | than 90, | | | | | | + +-------+ +-------+---+---+ +-------+ +-------+---+---+ | Given | 11/23/19 | 50 mg | | | | | 16 9:17 | | | | | | PM PDT | | | | +-------+ +-------+---+---+ +---+---+ | | | +---+---+ + +-------+ +------+---+---+ | morphine injection 2-6 mg 2-6 | Given | 11/21/19 | 2 mg | | | | mg, Intravenous, EVERY 2 HOURS | | 16 5:43 | | | | | PRN, chest pain, Starting Mon | | AM PDT | | | | | 11/20/15 at 0357, Slow IV push, | | | | | | | not faster than 2 mg/minute. If | | | | | | | ineffective or not tolerated, use | | | | | | | hydromorphone IV if ordered., | | | | | | + +-------+ +------+---+---+ +-------+ +------+---+---+ | Given | 11/21/19 | 2 mg | | | | | 16 5:25 | | | | | | AM PDT | | | | +-------+ +------+---+---+ +---+---+ | | | +---+---+ + +-------+ +--------+---+---+ | nitroglycerin (NITRO-BID) 2% | Given | 11/21/19 | 0.5 | | | | ointment 0.5 inch 0.5 inch, | | 16 5:40 | inches | | | | Topical, EVERY 6 HOURS (4 times | | AM PDT | | | | | per day), First dose (after last | | | | | | | modification) on Fri11/20/15 at | | | | | | | 0345 | | | | | | + +-------+ +--------+---+---+ +-------+ +--------+---+ + | Given | 11/21/19 | 0.5 | | Chest-Le | | | 16 5:25 | inches | | ft | | | AM PDT | | | Anterior | +-------+ +--------+---+ + | Given | 11/20/19 | 0.5 | | Chest-Ri | | | 16 11:36 | inches | | ght | | | PM PDT | | | Anterior | +-------+ +--------+---+ + +---+---+ | | | +---+---+ + +-------+ +--------+---+ + | nitroglycerin (NITRO-BID) 2% | Given | 11/24/19 | 1 inch | | Chest-Ri | | ointment 1 inch 1 inch, Topical, | | 16 6:14 | | | ght | | EVERY 6 HOURS (4 times per day), | | AM PDT | | | Anterior | | First dose (after last | | | | | | | modification) on Fri11/21/15 at | | | | | | | 1200 | | | | | | + +-------+ +--------+---+ + +-------+ +--------+---+ + | Given | 11/24/19 | 1 inch | | Arm-Left | | | 16 12:11 | | | Upper | | | AM PDT | | | | +-------+ +--------+---+ + | Given | 11/23/19 | 1 inch | | | | | 16 7:07 | | | | | | PM PDT | | | | +-------+ +--------+---+ + + +---+ | | | + +---+ | nitroglycerin (NITRO-BID) 2% | | | ointment Starting Tu11/21/15 at | | | 0548, For 1 dose, ADOLFO SAINI: | | | arden override, | | + +---+ | | | + +---+ + +-------+ +-------+---+---+ | prasugrel (EFFIENT) tablet 10 | Given | 11/24/19 | 10 mg | | | | mg 10 mg, Oral, DAILY, First | | 16 9:18 | | | | | dose on Fri11/22/15 at 0900 | | AM PDT | | | | + +-------+ +-------+---+---+ +-------+ +-------+---+---+ | Given | 11/23/19 | 10 mg | | | | | 16 10:45 | | | | | | AM PDT | | | | +-------+ +-------+---+---+ | Given | 11/22/19 | 10 mg | | | | | 16 10:16 | | | | | | AM PDT | | | | +-------+ +-------+---+---+ +---+---+ | | | +---+---+ + +---------+ +---+-------+---+ | sodium chloride 0.9% (NS) | New Bag | 11/24/19 | | 125 | | | infusion at 125 mL/hr, | | 16 7:02 | | mL/hr | | | Intravenous, CONTINUOUS, Starting | | AM PDT | | | | | 11/20/15 at 0345 | | | | | | + +---------+ +---+-------+---+ +---------+ +---+-------+---+ | New Bag | 11/23/19 | | 125 | | | | 16 10:50 | | mL/hr | | | | PM PDT | | | | +---------+ +---+-------+---+ | New Bag | 11/23/19 | | 125 | | | | 16 2:39 | | mL/hr | | | | PM PDT | | | | +---------+ +---+-------+---+ +---+---+ | | | +---+---+ + +---------+ +---+-------+---+ | sodium chloride 0.9% (NS) | New Bag | 11/21/19 | | 125 | | | infusion at 125 mL/hr, | | 16 12:11 | | mL/hr | | | Intravenous, FIXED VOLUME (see | | PM PDT | | | | | admin instruction), Starting Tue | | | | | | | 11/21/15 at 1000, Pre-op | | | | | | + +---------+ +---+-------+---+ +---+---+ | | | +---+---+ + +-------+ +--------+---+---+ | tiotropium (SPIRIVA) inhalation | Given | 11/24/19 | 18 mcg | | | | capsule 18 mcg 18 mcg, | | 16 9:28 | | | | | Inhalation, DAILY, First dose on | | AM PDT | | | | | 11/20/15 at 0900, Requires 2 | | | | | | | inhalations to administer one | | | | | | | capsule. Do not swallow capsule., | | | | | | | | | | | | | + +-------+ +--------+---+---+ +-------+ +--------+---+---+ | Given | 11/23/19 | 18 mcg | | | | | 16 9:00 | | | | | | AM PDT | | | | +-------+ +--------+---+---+ | Given | 11/22/19 | 18 mcg | | | | | 16 8:12 | | | | | | AM PDT | | | | +-------+ +--------+---+---+ +---+---+ | | | +---+---+ documented in this encounter
--- OUTSIDE RECORDS SUMMARY | ~2019-11-29 | XMS | Encounter Summary ---
Demographics + + + | Address | [address] | | | [place] [address] | + + + | Home Phone | | + + + | Preferred Language | Unknown | + + + | Marital Status | | + + + | Lutheran Affiliation | Unknown | + + + | Race | Unknown | + + + | Ethnic Group | Unknown | + + + Author + + + | Author | [facility] | | | and [place] | + + + | Organization | [facility] | | [...] Team Providers + +------+ + | Care Education Professional Name | Role | Phone | + +------+ + | Kyle Richey DO | PCP | | + +------+ + Encounter Details +--------+ + + + + | Date | Type | Department | Care Team | Description | +--------+ + + + + | 08/09/ | Abstract | [facility] [place] | [facility] | | | 2016 | | NEPHROLOGY [address] | DO [address] | | | | | [address] | [address] [place] | | | | | [place], [place] | [place] [address] | | | | | [address] | [phone] | | | | | [phone] | | | +--------+ + + + [...] documented as of this encounter Progress Notes Ирина Guzman - 08/09/2016 2:21 PM PDTOutside record: Colonoscopy report, dos 09/04/15. Sent to scan. Pre visit with Keaton Hall MD, dos: 08/14/15. Sent to scan. documented in this encounter Plan of Treatment Not on filedocumented as of this encounter Visit Diagnoses Not on filedocumented in this encounter"
--- OUTSIDE RECORDS SUMMARY | ~2019-11-29 | XMS | Encounter Summary ---
Demographics + + + | Address | [address] | | | [place] [address] | + + + | Home Phone [...] | Author | [facility] | | | and [place] | + + + | Organization | [facility] | | | and [...] Team Providers + +------+ + | Care Assistant Signal Maintainer Name | Role | Phone | + +------+ + | Kyle Richey DO | PCP | | + +------+ + Encounter Details +--------+ + + + + | Date | Type | Department | Care Team | Description | +--------+ + + + + | 01/16/ | Orders Only | [facility] | [facility] | Anemia of chronic | | 2017 | | NEPHROLOGY [address] | M, DO [address] | renal failure, stage | | | | [address] | [address] [place] | 3 (moderate) | | | | [place], [place] | [place], [place] [address] | (Primary Dx); | | | | [address] | [phone] | Controlled type 2 | | | | [phone] | | diabetes mellitus | | | | | | with diabetic | | | | | | nephropathy, with | | | | | | long-term current | | | | | | use of insulin | | | | | | ([facility]); Coronary | | | | | | artery disease | | | | | | involving [place] | | | | | | coronary artery of | | | | | | [place] heart without | | | | | [...] as of this encounter Plan of Treatment + +------+--------+ + + | Name | Type | Priori | Associated Diagnoses | Order Schedule | | | | ty | | | + +------+--------+ + + | CBC with | Lab | Routin | Anemia of chronic | Expected: | | Differential | | e | renal failure, stage | 02/03/2017, Expires: | | | | | 3 (moderate) | 01/16/2018 | | | | | Controlled type 2 | | | | | | diabetes mellitus | | | | | | with diabetic | | | | | | nephropathy, with | | | | | | long-term current | | | | | | use of insulin (HCC) | | | | | | Coronary artery | | | | | | disease involving | | | | | | [place] coronary | | | | | | artery of [place] | | | | | | heart without angina | | | | | | pectoris | | + +------+--------+ + + | Comprehensive | Lab | Routin | Anemia of chronic | Expected: | | Metabolic Panel | | e | renal failure, stage | 02/03/2017, Expires: | | | | | 3 (moderate) | 01/16/2018 | | | | | Controlled type 2 | | | | | | diabetes mellitus | | | | | | with diabetic | | | | | | nephropathy, with | | | | | | long-term current | | | | | | use of insulin (HCC) | | | | | | Coronary artery | | | | | | disease involving | | | | | | [place] coronary | | | | | | artery of [place] | | | | | | heart without angina | | | | | | pectoris | | + +------+--------+ + + | Protein, Urine, 24Hr | Lab | Routin | Anemia of chronic | Expected: | | | | e | renal failure, stage | 02/03/2017, Expires: | | | | | 3 (moderate) | 01/16/2018 | | | | | Controlled type 2 | | | | | | diabetes mellitus | | | | | | with diabetic | | | | | | nephropathy, with | | | | | | long-term current | | | | | | use of insulin (HCC) | | | | | | Coronary artery | | | | | | disease involving | | | | | | [place] coronary | | | | | | artery of [place] | | | | | | heart without angina | | | | | | pectoris | | + +------+--------+ + + | Creatinine | Lab | Routin | Anemia of chronic | Expected: | | Clearance, Result | | e | renal failure, stage | 02/03/2017, Expires: | | | | | 3 (moderate) | 01/16/2018 | | | | | Controlled type 2 | | | | | | diabetes mellitus | | | | | | with diabetic | | | | | | nephropathy, with | | | | | | long-term current | | | | | | use of insulin (HCC) | | | | | | Coronary artery | | | | | | disease involving | | | | | | [place] coronary | | | | | | artery of [place] | | | | | | heart without angina | | | | | | pectoris | | + +------+--------+ + + | Phosphorus | Lab | Routin | Anemia of chronic | Expected: | | | | e | renal failure, stage | 02/03/2017, Expires: | | | | | 3 (moderate) | 01/16/2018 | | | | | Controlled type 2 | | | | | | diabetes mellitus | | | | | | with diabetic | | | | | | nephropathy, with | | | | | | long-term current | | | | | | use of insulin (HCC) | | | | | | Coronary artery | | | | | | disease involving | | | | | | [place] coronary | | | | | | artery of [place] | | | | | | heart without angina | | | | | | pectoris | | + +------+--------+ + + | Parathyroid Hormone, | Lab | Routin | Anemia of chronic | Expected: | | Intact | | e | renal failure, stage | 02/03/2017, Expires: | | | | | 3 (moderate) | 01/16/2018 | | | | | Controlled type 2 | | | | | | diabetes mellitus | | | | | | with diabetic | | | | | | nephropathy, with | | | | | | long-term current | | | | | | use of insulin (HCC) | | | | | | Coronary artery | | | | | | disease involving | | | | | | [place] coronary | | | | | | artery of [place] | | | | | | heart without angina | | | | | | pectoris | | + +------+--------+ + + | Vitamin D, | Lab | Routin | Anemia of chronic | Expected: | | Deficiency Screen | | e | renal failure, stage | 02/03/2017, Expires: | | (25-Hydroxy) | | | 3 (moderate) | 01/16/2018 | | | | | Controlled type 2 | | | | | | diabetes mellitus | | | | | | with diabetic | | | | | | nephropathy, with | | | | | | long-term current | | | | | | use of insulin (HCC) | | | | | | Coronary artery | | | | | | disease involving | | | | | | [place] coronary | | | | | | artery of [place] | | | | | | heart without angina | | | | | | pectoris | | + +------+--------+ + + | Hemoglobin A1C | Lab | Routin | Anemia of chronic | Expected: | | | | e | renal failure, stage | 02/03/2017, Expires: | | | | | 3 (moderate) | 01/16/2018 | | | | | Controlled type 2 | | | | | | diabetes mellitus | | | | | | with diabetic | | | | | | nephropathy, with | | | | | | long-term current | | | | | | use of insulin (HCC) | | | | | | Coronary artery | | | | | | disease involving | | | | | | [place] coronary | | | | | | artery of [place] | | | | | | heart without angina | | | | | | pectoris | | + +------+--------+ + + | Lipid Panel | Lab | Routin | Anemia of chronic | Expected: | | | | e | renal failure, stage | 02/03/2017, Expires: | | | | | 3 (moderate) | 01/16/2018 | | | | | Controlled type 2 | | | | | | diabetes mellitus | | | | | | with diabetic | | | | | | nephropathy, with | | | | | | long-term current | | | | | | use of insulin (HCC) | | | | | | Coronary artery | | | | | | disease involving | | | | | | [place] coronary | | | | | | artery of [place] | | | | | | heart without angina | | | | | | pectoris | | + +------+--------+ + + documented as of this encounter Visit Diagnoses + + | Diagnosis | + + | Anemia of chronic renal failure, stage 3 (moderate) (HCC) - Primary | + + | Controlled type 2 diabetes mellitus with diabetic nephropathy, with long-term current | | use of insulin (HCC) | + + | Coronary artery disease involving [place] coronary artery of [place] heart without | | angina pectoris | + + documented in this encounter"
--- OUTSIDE RECORDS SUMMARY | ~2019-11-29 | XMS | Encounter Summary ---
Demographics + + + | Address | [address] | | | [place] [address] | + + + | Home Phone [...] Team Providers + +------+ + | Care Archaeologist Name | Role | Phone | + +------+ + | Kyle Richey DO | PCP | | + +------+ + Reason for Visit +--------+ + | Reason | Comments | +--------+ + | Cough | 2 month follow up | +--------+ + Encounter Details +--------+---------+ + + + | Date | Type | Department | Care Team | Description | +--------+---------+ + + + | 06/19/ | Office | [facility] [place] | [place], | Panlobular emphysema | | 2016 | Visit | PULMONARY [address] | Megha Mendoza MD | ([facility]) (Primary Dx); | | | | [place], | | Chronic cough; | | | | [place] [address] | | Gastroesophageal | | | | [phone] | | reflux disease | | | | | | without esophagitis; | | | | | | DES (obstructive | | | | | | sleep apnea) | +--------+---------+ + + + Social [...] + | Blood Pressure | 130/84 | 06/19/2015 3:20 PM | | | | | PST | | + + + + + | Pulse | 100 | 06/19/2015 3:20 PM | | | | | PST | | + + + + + | Temperature | - | - | | + + + + + | Respiratory Rate | - | - | | + + + + + | Oxygen Saturation | 100% | 06/19/2015 3:20 PM | | | | | PST | | + + + + + | Inhaled Oxygen | - | - | | | Concentration | | | | + + + + + | Weight | 98.9 kg (218 lb) | 06/19/2015 3:20 PM | | | | | PST | | + + + + + | Height | 157.5 cm (5' 2") | 06/19/2015 3:20 PM | | | | | PST | | + + + + + | Body Mass Index | 39.87 | 06/19/2015 3:20 PM | | | | | PST | | + + + + + documented in this encounter Patient Instructions Patient Instructions Megha Díaz MD - 06/19/2015 4:04 PM PSTStart on Incruse 1 inhalation once daily. Rinse your mouth after use. If the Spiriva was causing the leg cramps , this one should not do this as it is metabolized differently. Let me know if this is not c overed. Check with Dr. Castillo's office and see if you got a Pneumovax in the last 5 years. If not, y ou should get one. I would also check with Dr. Castillo, as you may need to get the new Prevnar vaccine given the use of Humira. You have to get this at least 12 months after your last Pn eumovax. Find out what your co pay would be for a diagnostic polysomnogram, and let me know if you w ant to go ahead with this. If so, we can do it either at [facility] or here. Electronical ly signed by Megha Díaz MD at 06/19/2015 4:20 PM PST documented in this encounter Progress Notes Megha Díaz MD - 06/19/2015 3:27 PM PSTFormatting of this note might be differe nt from the original. Pulmonary Follow Up HPI Jessie Casarez is a 50 y.o. female patient of Pacheco Castillo MD here today for follow up of COPD. At their last visit, we had started her on Spiriva and omeprazole. Since their last visit s he feels like she has been doing better. She has not had any acute illnesses. She was in the ER for chest pain earlier this month. She is no longer on Spiriva. She notes that she got leg cramps on this when she used it, an d when she stopped it, they went away. She used it for 2 months before stopping it. She did note that her breathing improved on this. Since being off of this, her breathing has slowly started to worsen again. She notes that on Symbicort, she did not have improvement in her br eathing or cough. She returns today for routine follow up. Currently she is able to walk 100 feet at her own pace on level ground. She is not exercisi ng regularly. She notes her cough has improved significantly, even being off of the Spiriva. She has been evaluated for nocturnal oxygen and does not need to use it. She does not have symptoms of heartburn or reflux. She is taking the omeprazole once daily. She notes she is still waking up at night, to use the bathroom, not coughing. She is still tired during the daytime. She is not falling asleep during the daytime. On weekends, she get s up at 6 am, or later not until 9:30am or 10am. She goes to bed at 7:30-8pm. Her st al notices her snoring loudly. He has not said anything recently about her having apneas. 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, + for TB, treated with [facility] through [facility] RA (rheumatoid arthritis) ([facility]) 2001 Pleural effusion 10/2011, 11/2011 secondary to RA?, negative for TB 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 [place] (myocardial infarction) ([facility]) 11/2012 CAD (coronary artery disease) CKD (chronic kidney disease) Rheumatoid arthritis ([facility]) Tubal Past Surgical History Past Surgical History Procedure Laterality Date Coronary angioplasty with stent placement 11/2012 [facility] Cholecystectomy Salpingectomy Left for ectopic Thoracentesis 11/09/2011, 12/09/2011, 01/2012 Tonsillectomy childhood Cardiac surgery pt reports two stents Tonsillectomy Social History: History Social History Marital Status: Spouse Name: N/A Number of Children: N/A Years of Education: N/A 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 HYDROcodone-acetaminophen (NORCO) 5-325 mg per tablet Take 1-2 tablets by mouth every 6 hours as needed for Pain. 16 tablet 0 lidocaine (LIDODERM) 5% patch Cut and fit to painful areas. Apply 12 hours on and 12 ho urs off. omeprazole (PRILOSEC) 20 mg capsule Take 1 capsule by mouth every morning (before break fast). 30 capsule 11 [DISCONTINUED] ondansetron (ZOFRAN ODT) 4 mg disintegrating tablet Take 1 tablet by shy th every 8 hours as needed for up to 12 doses. 12 tablet 0 tiotropium (SPIRIVA HANDIHALER) 18 mcg inhalation capsule Inhale 1 capsule into the april gs Daily. 30 capsule 11 No facility-administered encounter medications on file as of 06/19/2015. Review of Systems: General: []Weight loss/gain (over 10 lbs) [x]Fever/chills/sweats []Night sweats EENT: []Hearing loss []Vision loss/change []Sinus congestion/nasal drainage []Nosebleeds [] Hoarseness Cardiac: [x]Chest pain - was seen in ER on 06/15/15 []Palpitations/heart racing []Swelling of legs/an kles []Waking up at night short of breath []Difficulty sleeping flat Gastrointestinal: []Nausea/vomiting []Difficulty swallowing [x]Heartburn/acid reflux - on Omeprazole []Loss of appetite []Abdominal pain Urologic: []Blood in urine []Frequent urination at night []Burning/painful urination []Difficulty wi th urination Objective BP 130/84 mmHg | Pulse 100 | Ht 1.575 m (5' 2") | Wt 98.884 kg (218 lb) | BMI 39.86 kg/m2 | SpO2 100% | LMP 06/06/2015 | ? No General Appearance: Alert, cooperative, no distress, appears stated age Head: Normocephalic, without obvious abnormality, atraumatic Eyes: PERRL, conjunctiva clear, no scleral icterus, EOM's intact Ears: Normal TM's, external auditory canals, normal acuity Nose: Nares normal, septum midline, mucosa normal Mouth: No oral lesions or exudate Neck: Supple, symmetrical, no adenopathy Lungs: No accessory muscle use, breath sounds are diminished bilaterally with some prolon gation of the expiratory phase, no wheezes, crackles or rhonchi Chest Wall: No deformity Heart: Regular rate and rhythm, no murmur, rub or gallop Abdomen: Soft, non-tender, non-distended, mildly obese Extremities: No cyanosis, clubbing, trace lower extremity edema Pulses: Radial pulses 2+ and symmetric Skin: Warm and dry Lymph nodes: Cervical and supraclavicular nodes normal Data: Overnight oximetry was done on February 06, 2015 on room air and was reviewed and interpre cory in clinic today. It shows she spent 0 minutes with a saturation less than 88%. There is a sawtooth pattern of desaturation seen. Pulmonary agiogram CT scan was done on June 16, 2015 and was reviewed and interpreted in clinic today. It shows mild emphysematous changes, no signs of a PE or other lung disease. Immunization History Administered Date(s) Administered INFLUENZA, TRIVALENT PRESERVATIVE FREE (PED/ADOL/ADULT) 02/09/2014 INFLUENZA, UNSPECIFIED FORMULATION 03/10/2015 Assessment ICD-10-CM ICD-9-CM 1. Panlobular emphysema (HCC) J43.1 492.8 Mild based on imaging. Notes increased dyspnea of f of Spiriva, but had leg cramps on Spiriva (which is unusual for a side effect), 2. Chronic cough R05 786.2 This has mostly resolved on omeprazole. 3. Gastroesophageal reflux disease without esophagitis K21.9 530.81 On omeprazole with impr ovement in cough symptoms. Given recent chest pain with negative cardiac work up, consider possibility of GI causes of chest pain? 4. DES (obstructive sleep apnea) G47.33 327.23 She notes snoring, history of witnessed apne as, frequent nocturnal awakenings despite resolution of the cough, and daytime fatigue with prolonged time in bed. I suggested sleep study and she will contact her insurance to see if this is covered. Plan 1.Start Incruse 1 inhalation daily. 2.I recommended she start a regular exercise program to help with dyspnea on exertion. 3.I asked her to see if doing a sleep study is feasible with her insurance coverage. 4. Continue on omeprazole 20mg daily. Consider GI referral given chest pain, etc. -> defer to PCP She was advised to call if new pulmonary symptoms were to develop. Return to clinic in 2 months, or sooner with concerns. CC: Pacheco Castillo MD, Kyle Richey MD Portions of this report were transcribed using voice recognition software. Every effort wa s made to ensure accuracy; however, inadvertent computerized director of consumer marketing errors may be pre sent. documented in t his encounter Plan of Treatment Not on filedocumented as of this encounter Visit Diagnoses + + | Diagnosis | + + | Panlobular emphysema (HCC) - Primary Other emphysema | + + | Chronic cough Cough | + + | Gastroesophageal reflux disease without esophagitis Esophageal reflux | + + | DES (obstructive sleep apnea) Obstructive sleep apnea (adult) (pediatric) | + + documented in this encounter
--- OUTSIDE RECORDS SUMMARY | ~2019-11-29 | XMS | Encounter Summary ---
Demographics + + + | Address | [address] | | | [place] [address] | + + + | Home Phone | | + + + | Preferred Language | Unknown | + + + | Marital Status | | + + + | Hoahaoism Affiliation | Unknown | + + + [...] Team Providers + +------+ + | Care Botanical Technical Officer Name | Role | Phone | + +------+ + | Kyle Richey DO | PCP | | + +------+ + Reason for Visit +--------+ + | Reason | Comments | +--------+ + | Cough | Yearly | +--------+ + Encounter Details +--------+---------+ + + + | Date | Type | Department | Care Team | Description | +--------+---------+ + + + | 08/15/ | Office | [facility] | Sd Bruno, | Cough in adult | | 2018 | Visit | PULMONARY [address] | [address] | (Primary Dx); | | | | [place], | [place] [address] | Congestive heart | | | | [place] [address] | [phone] | failure, NYHA class | | | | [phone] | | 1, unspecified | | | | | | congestive heart | | | | | | failure type (HCC) | +--------+---------+ + + + Social [...] + + + | Blood Pressure | 120/84 | 08/15/2017 9:18 AM | | | | | PDT | | + + + + + | Pulse | 100 | 08/15/2017 9:18 AM | | | | | PDT | | + + + + + | Temperature | 36.8 C (98.2 F) | 08/15/2017 9:18 AM | | | | | PDT | | + + + + + | Respiratory Rate | - | - | | + + + + + | Oxygen Saturation | 97% | 08/15/2017 9:18 AM | | | | | PDT | | + + + + + | Inhaled Oxygen | - | - | | | Concentration | | | | + + + + + | Weight | 98.9 kg (218 lb 0.6 | 08/15/2017 9:18 AM | | | | oz) | PDT | | + + + + + | Height | 157.5 cm (5' 2") | 08/15/2017 9:18 AM | | | | | PDT | | + + + + + | Body Mass Index | 39.88 | 08/15/2017 9:18 AM | | | | | PDT | | + + + + + documented in this encounter Progress Notes Sd Bruno MD - 08/15/2017 9:40 AM [id number] ex-smoker with chronic ir ritative nonproductive cough She had this when she saw Dr. magallanes in 2016 and it is not gone away. She smoked from age 18 to age 48, 10-15 cigarettes per day, but has not smoked since then. However she work s in the [employer] when she is around cigarette smoke. When smokers come up to her window, the air blows it at her. Sometimes her cough and can be quite severe. She has Spiriva and when necessary albuterol to use. She thinks the Spiriva does nothing. She uses it once a day. When a couple occasion she is experimented with skipping it for 2 days and she finds no difference. She thinks the albuterol might help, but when she squirts it she can feel it hitting her mouth and is not sure how much she gets. She is never had asthma. She does have exertional dyspnea. She never had hayfever and truong s not have it now. There are no pets at home and her does not smoke. She had nocturnal oximetry in 2016 and did not desaturate below 90%. Past medical history: She had a myocardial infarction and has well compensated CHF and diabetes. She also had re cently discovered anemia, with quite a low hemoglobin and severe iron deficiency. She tells me she allergies really. Social history: Working, lives with her Physical exam: Pleasant very overweight attentive articulate woman in no distress, but who coughs several times during our time together. Weight 98.9 kg, same as 2016. Blood pressur e 120/84, pulse 100 regular, respirations 16, temperature 98.2, oxygen saturation 97% on kareem m air. HEENT: Conjunctiva are pale. Pupils are reactive. Oropharynx is normal. The neck has a big circumference and the thyroid is prominent but I feel no mass or nodule. The lung montano are clear but there is limited excursion. The heart is very difficult to hear. Abd omen is obese. Extremities show no edema. Laboratory evaluation: Chest x-ray of June 06, 2017 shows a poor inspiration and the sug gestion of cephalization and cardiomegaly, but that is difficult to confirm because of the p oor inspiration. The lung montano otherwise look clear. Echocardiogram November 16, 2015 showed biatrial dilatation in the face of an acute [place]. In November 2011 she had clear CHF with effusio ns. Serum chemistry by Dr. Richey in 2017 was unremarkable, but her iron was only 12 and 3% saturation, and her hemoglobin was only 8.6 with MCV of 65 and MCH of only 19, both quite l ow. Pulmonary function testing of February 24, 2015 showed a restrictive picture with FEV1 1.71, 69%, FVC 2 L, 67%, for ratio of 86%, supranormal. Total lung capacity was 85%, reduced. D iffusion capacity was 13.9, 57% of predicted, but transfer factor was normal at 103%. Impression and plan: 1. Chronic nonproductive cough: I think this is irritated from her cigarette smoking, her current cigarette exposure, and there is unlikely to be much atopy. For this she should use inhaled steroid through a spacer. I found a spacer free sample and spent considerable time showing her how to use it. I wrote her prescription for Flovent 220 or Asmanex 200, HFA on ly, no dry powder, and told her to use 2 puffs, separate ones, twice daily through the space r. She will return in the week of September 15 and we'll see how she is progressed. She should br ing the inhalers and the spacer and not stop using it in the meanwhile. I hope her iron deficiency anemia workup does not yield a result dangerous to her, though I am concerned. We spent 30 minutes, at least half in counseling. Word processing was used and I apologize for mistakes. Sd Bruno M.D. Pulmonary critical care 1 1:04 AM PDTdocumented in this encounter Plan of Treatment Not on filedocumented as of this encounter Visit Diagnoses + + | Diagnosis | + + | Cough in adult - Primary | + + | Congestive heart failure, NYHA class 1, unspecified congestive heart failure type | | (HCC) | + + documented in this encounter
--- OUTSIDE RECORDS SUMMARY | ~2019-11-29 | XMS | Encounter Summary ---
Demographics + + + | Address | [address] | | | [place] [address] | + + + | Home Phone [...] Team Providers + +------+ + | Care Ultrasonic Hand Solderer Name | Role | Phone | + +------+ + PCP | Unavailable | + +------+ + Reason for Visit +---------+--------+ + | Reason | Onset | Comments | | | Date | | +---------+--------+ + | Results | 03/02/ | nocturnal oximetry | | | 2015 | | +---------+--------+ + Encounter Details +--------+ + + + + | Date | Type | Department | Care Team | Description | +--------+ + + + + | 03/02/ | Telephone | [facility] [place] | [place], | Results (nocturnal | | 2015 | | PULMONARY [address] | Megha Mendoza MD | oximetry) | | | | [place], | | | | | | [place] [address] | | | | | | [phone] | | | +--------+ + + + [...] this encounter Miscellaneous Notes Telephone Encounter - Viviana Solorzano RN - 03/02/2015 2:26 PM PDTCalled Jsesie and advis ed per Dr Díaz that her nocturnal pulse oximetry on room air looks great and no noctur nal O2 is needed. Okay per patient. 15 2:27 PM PDTdocumented in this encounter Plan of Treatment Not on filedocumented as of this encounter Visit Diagnoses Not on filedocumented in this encounter"
--- OUTSIDE RECORDS SUMMARY | ~2019-11-29 | XMS | Encounter Summary ---
Demographics + + + | Address | [address] | | | [place] [address] | + + + | Home Phone [...] Team Providers + +------+ + | Care Utility Worker [place] Name | Role | Phone | + +------+ + | Kyle Richey DO | PCP | | + +------+ + Reason for Visit +--------+--------+ + | Reason | Onset | Comments | | | Date | | +--------+--------+ + | Other | 06/05/ | | | | 2019 | | +--------+--------+ + Encounter Details +--------+ + + + + | Date | Type | Department | Care Team | Description | +--------+ + + + + | 06/05/ | Telephone | [facility] [place] | JorgexiaoMarissa, | Other | | 2019 | | CARDIOLOGY [address] | | | | | [place], | [place], | | | | | [place] [address] | [place] [address] | | | | | [phone] | [phone] | | | | | | | [...] this encounter Miscellaneous Notes Telephone Encounter - Guerda Delaney RN - 06/09/2018 11:11 AM PSTPatient notified sonia t she may process with surgery. She will have the surgeon get the last progress note ....... ...................................Guerda Delaney RN on 06/09/18 at 11:47 [facility] - 06/09/2018 9:[address] Beavers, patient can proceed with surgery ..........................................Guerda Delaney RN on 06/09/18 at 9:39 Left message on voicemail to return call ..........................................Guerda Delaney RN on 06/09/18 at 9:40 elephone [facility] Guerda Mays RN - 06/05/2018 4:53 PM PSTPatient called and needs a letter to c lear her for surgery. She had a letter from April and needs to have another letter for a different doctor. She will have a laparotomy instead of a laparoscopy. I informed her that I would consult with Dr Beavers on Friday and return her call .................................. ........Guerda Delaney RN on 06/05/18 at 16:57 documented in t his encounter Plan of Treatment Not on filedocumented as of this encounter Visit Diagnoses Not on filedocumented in this encounter"
--- OUTSIDE RECORDS SUMMARY | ~2019-11-29 | XMS | Encounter Summary ---
Demographics + + + | Address | [address] | | | [place] [address] | + + + | Home Phone [...] Team Providers + +------+ + | Care Web Production Designer Name | Role | Phone | [...] | | | | | Coronary | [place], | Medicine | | | | | artery | ROSARIO ChunP | [address] | | | | | disease | [address] | [place], | | | | | involving | [place] | [place] | | | | | [place] | [place], | [address] | | | | | coronary | [place] | Phone: | | | | | artery of | [address] | [phone] | | | | | [place] heart | Phone: | Fax: | | | | | without | [phone] | [phone] | | | | | angina | Fax: | | | | | | pectoris | [phone] | | | | | | Procedures [...] | | | | | | STUDIES [place] | | | | | | | CV STRS TST | | | | | | | XERS&/OR RX | | | | | | | CONT ECG W/O | | | | | | | I&R [place] | | | | | | | [...] + + | 03/08/ | Hospital | [facility] | Gabi, | Coronary artery | | 2015 | Encounter | [facility] | LUIZ Chun [address] | disease involving | | | | MEDICINE [address] | [place], | [place] coronary | | | | [place], | [place] [address] | artery of [place] | | | | [place] [address] | [phone] | heart without angina | | | | [phone] | | pectoris | +--------+ + + [...] | - VASODILATOR) | | PDT | [place] coronary | results section. | | | | | artery of [place] | | | | | | heart without angina | | | | | | pectoris | | + +--------+ + + + documented in this encounter Results NM Nuclear Stress Test (Vasodilator) (03/08/2016 1:37 PM PDT) + + | Specimen | + + | | + + + + + | Impressions | Performed At | + + + | 1. Persantine EKG is negative. 2. Abnormal Persantine | [facility] | | Sestamibi myocardial perfusion study with a medium-size, mainly | | | reversible defect of a moderate severity of the entire anterior, | | | anterolateral, inferior and inferior lateral. This suggests a | | | medium-sized myocardial ischemia of both left anterior descending | | | artery and left circumflex artery.Gated SPECT reveals a normal left | | | ventricular wall thickness and motion. Preserved left ventricular | | | systolic function. LVEF by gated SPECT is 64 %. Signed | | | by: Marissa Rouse MD [facility] 03/08/2016, 13:38 | | + + + + + + | Narrative | Performed At | + + + | NUCLEAR MEDICINE STRESS TEST REPORT | [facility] | | Patient Name: Jessie Casarez Study Date: 03/08/2016 Primary | | | Care Provider: Kyle Richey DO : | | | 1965 Age: 51 y.o. Gender: female CLINICAL | | | HISTORY/DIAGNOSIS: Chest pain/CAD PERSANTINE SESTAMIBI STRESS | | | TEST Indication: chest pain/CAD Procedure: In the supine | | | position, 54 mg of Persantine was infused intravenously over 4 | | | minutes. Blood pressure and EKG were monitored every 1 minute. 5 | | | mL of normal saline was utilized to flush the IV line. 2.5 minutes | | | later, 10.7 mCi sestamibi intravenous injection. SPECT myocardial | | | perfusion imaging was acquired with wall motion analysis. Rest | | | imaging was performed using 32 mCi Sestamibi intravenous injection. | | | Repeated SPECT myocardial perfusion imaging was acquired with wall | | | motion analysis. At the end of the procedure, 75 mg of | | | aminophylline was infused intravenously. Hemodynamics: Heart | | | rate baseline 90 beats per minute, peak 102 beats per minute. Blood | | | pressure baseline 168/90 mmHg, peak 154/76 mmHg. EKG baseline | | | underlying sinus rhythm, nonspecific ST-T abnormalities. Peak | | | unchanged. Side Effects: None. Arrhythmia: None. | | | Persantine Sestamibi Myocardial Perfusion Imaging Result: The | | | Persantine Sestamibi tomographic images, reviewed without the | | | attenuation compensation resolution, revealed a medium-size, mainly | | | reversible defect of a moderate severity of the entire anterior | | | anterolateral, inferior and inferior lateral. Abnormality can be | | | seen in short axis, vertical long axis, and horizontal long axis | | | projections comprising approximately 15% of the left ventricular | | | myocardium. The left ventricular cavity is normal. The rest imaging | | | shows a significant reversibility of the anteroapical and inferior | | | wall defect. Gated SPECT reveals a normal left | | | ventricular wall thickness and motion. Preserved left ventricular | | | systolic function. LVEF by gated SPECT is 64 %. 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
--- OUTSIDE RECORDS SUMMARY | ~2019-11-29 | XMS | Encounter Summary ---
Demographics + + + | Address | [address] | | | [place] [address] | + + + | Home Phone | | + + + | Preferred Language | Unknown | + + + | Marital Status | | + + + | Orthodoxy Affiliation | Unknown | + + + | Race | Unknown | + + + | Ethnic Group | Unknown | + + + Author + + + | Author | [facility] | | | and [place] | + + + | Organization | [facility] | | | and [...] Team Providers + +------+ + | Care Rubber Compounder Name | Role | Phone | + +------+ + | Kyle Richey DO | PCP | | + +------+ + Reason for Visit +--------+--------+ + | Reason | Onset | Comments | | | Date | | +--------+--------+ + | LABS | 01/15/ | BMP/Kidney Function | | | 2016 | | +--------+--------+ + Encounter Details +--------+ + + + + | Date | Type | Department | Care Team | Description | +--------+ + + + + | 01/15/ | Telephone | [facility] | Marissa Rouse, | LABS (BMP/Kidney | | 2016 | | CARDIOLOGY [address] | Function) | | | | [place], | [place], | | | | | [place] [address] | [place] [address] | | | | | [phone] | [phone] | | | | | | | [...] Telephone Encounter - Evangelina Interiano RN - 01/16/2016 1:33 PM PDTOrder done ............ ...............................Evangelina Interiano RN on 01/16/16 at 13:33 elephone Encounter - Laisha Celestin Excavation Laborer - 01/16/2016 1:18 PM PDTPatient needs a lab order for a repeat BMP/Kidney function test prior to her follow up appointment at the [facility] on 01/18/2016. Voicemail was left on patients home phone to call back to see alen anaya she would like the lab order faxed to. Electronically signed by: LAISHA CELESTIN Internet Ecommerce Specialist 01/16/2016 13:20 docume nted in this encounter Plan of Treatment + +------+--------+ + + | Name | Type | Priori | Associated Diagnoses | Order Schedule | | | | ty | | | + +------+--------+ + + | Basic Metabolic | Lab | Routin | Coronary artery | Expected: | | Panel | | e | disease involving | 01/16/2016, Expires: | | | | | [place] coronary | 01/15/2017 | | | | | artery of [place] | | | | | | heart, angina | | | | | | presence unspecified | | + +------+--------+ + + documented as of this encounter Visit Diagnoses + + | Diagnosis | + + | Coronary artery disease involving [place] coronary artery of [place] heart, angina | | presence unspecified - Primary | + + documented in this encounter"
--- OUTSIDE RECORDS SUMMARY | ~2019-11-29 | XMS | Encounter Summary ---
Demographics + + + | Address | [address] | | | [place] [address] | + + + | Home Phone | | + + + | Preferred Language | Unknown | + + + | Marital Status | | + + + | Uatsdin Affiliation | Unknown | + + + [...] Team Providers + +------+ + | Care Die Presser Name | Role | Phone | + +------+ + | Kyle Richey DO | PCP | | + +------+ + Encounter Details +--------+ + + + + | Date | Type | Department | Care Team | Description | +--------+ + + + + | 03/28/ | Hospital | [facility] | Conversion | Diagnosis unknown | | 2016 | Encounter | CONVERSION [address] | Transaction, | | | | | [address] | Provider Unknown | | | | | [place], [place] | [phone] | | | | | [address] | | | | | | [phone] | | | +--------+ + + + [...] for this | | | e | 12:46 PM | | procedure are in the | | | | PDT | | results section. | + +--------+ + + + documented in this encounter Results WILFRED Willams (11/20/2015 12:46 PM PDT) + + | Specimen | + + | | + + + + + | Narrative | Performed At | + + + | This is a non-reportable procedure without a radiologist report and | | | is used for image storage only | | + + + + + | Procedure Note | + + | Jayme Kelly Susan - 12/24/2018 8:58 PM PDT This is [...]
--- OUTSIDE RECORDS SUMMARY | ~2019-11-29 | XMS | Encounter Summary ---
Demographics + + + | Address | [address] | | | [place] [address] | + + + | Home Phone | | + + + | Preferred Language | Unknown | + + + | Marital Status | | + + + | Scientologist Affiliation | Unknown | + + + [...] Team Providers + +------+ + | Care Wind Turbine Erector Name | Role | Phone | + +------+ + | Kyle Richey DO | PCP | | + +------+ + Encounter Details +--------+ + + + + | Date | Type | Department | Care Team | Description | +--------+ + + + + | 08/03/ | Orders Only | [facility] | Brian Jamil | | | 2019 | | [address] | [address] | | | | | [place], [place] | [address] | | | | | [address] | [place] [address] | | | | | [phone] | | | | | | | [...] + +--------+ + + + | CULTURE, ANAEROBIC | Routin | 08/03/2018 | | Results for this | | | e | 12:01 AM | | procedure are in the | | | | PDT | | results section. | + +--------+ + + + documented in this encounter Results Culture, Anaerobic (08/03/2018 12:01 AM PDT) + + | Specimen | + + | | + + + + + | Narrative | Performed At | + + + | Specimen Description OTHER GRAM STAIN | EXTERNAL LAB | | 2+ | | | WBC'S SEEN | | | 2+ | | | GRAM POSITIVE COCCI CULTURE | | | 2+ | | | STAPHYLOCOCCUS AUREUSAbnormal | | | 1+ | | | NORMAL SKIN DARÍO ISOLATED | | | Suscepibility for - STAPHYLOCOCCUS AUREUS Penicillin G | | | RESISTANT Resistant Clindamycin | | | RESISTANT Resistant Erythromycin | | | RESISTANT Resistant Gentamicin | | | SUSCEPTIBLESensitive Levofloxacin | | | SUSCEPTIBLESensitive Moxifloxacin | | | SUSCEPTIBLESensitive Oxacillin | | | SUSCEPTIBLESensitive Tetracycline RESISTANT | | | Resistant Trimethoprim + SulfamethoxazoleSUSCEPTIBLESensitive | | | Vancomycin SUSCEPTIBLESensitive | | + + + + +---------+ + + | Performing | Address | City/State/Zipcode | Phone Number | | Organization | | | | + +---------+ + + | EXTERNAL LAB | | | | + +---------+ + + documented in this encounter Visit Diagnoses Not on filedocumented in this encounter"
--- OUTSIDE RECORDS SUMMARY | ~2019-11-29 | XMS | Encounter Summary ---
Demographics + + + | Address | [address] | | | [place] [address] | + + + | Home Phone | | + + + | Preferred Language | Unknown | + + + | Marital Status | | + + + | Sabianism Affiliation | Unknown | + + + | Race | Unknown | + + + | Ethnic Group | Unknown | + + + Author + + + | Author | [facility] | | | and [place] | + + + | Organization | [facility] | | [...] Team Providers + +------+ + | Care Dial Refinisher Name | Role | Phone | + +------+ + | Kyle Richey DO | PCP | | + +------+ + Reason for Visit + +--------+ + | Reason | Onset | Comments | | | Date | | + +--------+ + | Hospital Follow-up | 11/27/ | | | | 2015 | | + +--------+ + Encounter Details +--------+ + + + + | Date | Type | Department | Care Team | Description | +--------+ + + + + | 11/27/ | Telephone | [facility] | Viviana Hartley, | Hospital Follow-up | | 2015 | | [facility] | PharmD [address] | | | | | [address] [place] | [address] [place] | | | | | [place] [address] | [place] [address] | | | | | [phone] | | +--------+ + + + + [...] encounter Miscellaneous Notes Telephone Encounter - Viviana Hartley, PharmD - 11/28/2015 1:59 PM PDTHospital Follow-Up [facility] Call Date discharged: 11/24/15 Primary Diagnosis: NSTEMI Education done/topics reviewed: 1. Health Status- Doing well. Walked all over the [employer] on Friday with no shortness of breath. 2. Diagnosis education- reviewed pts knowledge of primary diagnosis and provided additional education. 3. Medication Reconciliation - Medications reconciled over the phone with patient looking at prescription bottles. - Patient received blood glucose monitor, but no prescription for needles or strips. This pharmacist will ask community health educator contact patient to make arrangements for these suppli es. 4. Reminded pt of scheduled follow-up appointments. 5. Reviewed what do in emergency as well as a non-emergent situation. Verified pt has doct or's contact information. Date of follow-up appointment with PCP: Dr. Richey on 11/29; Dr. Rouse on 12/06; nurse informatics educator on 12/11. Electronically signed by: Viviana Hartley PHARMD 11/28/2015 14:11 documented in thi s encounter Plan of Treatment Not on filedocumented as of this encounter Visit Diagnoses Not on filedocumented in this encounter"
--- OUTSIDE RECORDS SUMMARY | ~2019-11-29 | XMS | Encounter Summary ---
Demographics + + + | Address | [address] | | | [place] [address] | + + + | Home Phone | | + + + | Preferred Language | Unknown | + + + | Marital Status | | + + + | Pentecostal Affiliation | Unknown | + + + | Race | Unknown | + + + | Ethnic Group | Unknown | + + + Author + + + | Author | [facility] | | | and [place] | + + + | Organization | [facility] | | [...] Team Providers + +------+ + | Care Core Cutter Name | Role | Phone | [...] | | | | | Chronic | Gabi | Nephrology | | | | | kidney | ROSARIO ChunP | [address] | | | | | failure | [address] | | | | | | [place] | [place], | | | | | | [place], | [place] [address] | | | | | | [place] | Phone: | | | | | | [address] | [phone] | | | | | | Phone: | Fax: | | | | | | [phone] | [phone] | | | | | | Fax: | | | | | | | [phone] | | +--------+--------+ + + + + Encounter Details +--------+ + + + + | Date | Type | Department | Care Team | Description | +--------+ + + + + | 07/22/ | Off-Site | [facility] [place] | Riaz Retana | Rheumatoid arthritis | | 2017 | Visit | NEPHROLOGY [address] | M, DO [address] | involving multiple | | | | [address] | [address] [place] | sites, unspecified | | | | [place], [place] | [place] [address] | rheumatoid factor | | | | [address] | [phone] | presence (HCC) | | | | [phone] | | (Primary Dx); | | | | | | Chronic kidney | | | | | | disease, stage III | | | | | | (moderate); | | | | | | Uncontrolled type 2 | | | | | | diabetes mellitus | | | | | | with hyperglycemia, | | | | | | with long-term | | | | | | current use of | | | | | | insulin (HCC); | | | | | | Anemia of chronic | | | | | | renal failure, | | | | | | unspecified stage | +--------+ + + + + Social [...] + + + | Blood Pressure | 142/90 | 07/22/2016 11:28 AM | | | | | PDT | | + + + + + | Pulse | 70 | 07/22/2016 11:28 AM | | | | | PDT | | + + + + + | Temperature | 37.1 C (98.8 F) | 07/22/2016 11:28 AM | | | | | PDT | | + + + + + | Respiratory Rate | 18 | 07/22/2016 11:28 AM | | | | | PDT | | + + + + + | Oxygen Saturation | - | - | | + + + + + | Inhaled Oxygen | - | - | | | Concentration | | | | + + + + + | Weight | 95.3 kg (210 lb 1.6 | 07/22/2016 11:28 AM | | | | oz) | PDT | | + + + + + | Height | - | - | | + + + + + | Body Mass Index | 38.43 | 07/11/2016 1:48 PM | | | | | PST | | + + + + + documented in this encounter Progress Notes Mazin Riaz Hali, DO - 07/23/2016 11:31 AM PDT Subjective: NEPHROLOGY CONSULT Patient ID: Jessie Casarez is a 51 y.o. female. Reason for consultation: CKD Referring Provider: Lay DEE HPI Comments: Asked to see this pleasant, 51 YO Female for abnormal Scr and CKD. Apparently, she has had some extensive problems with CAD in the last year, and had to have PCI w/o a stent to her mid-RCA on 11/23/15. She has been found to have abnormal Scr at that time at 1.67 mg/dl which gave her an MDRD = 32 ml/minute at that time. Also, I note that her Scr was 1.77 mg/dl in 2012 during her initial NSTEMI, at [facility]. She admits to being treated with long acting insulin for Type 2 DM. She admits to being inf ormed of "borderline diabetes" as much as [address] Alexis Gonzalez in [place]. She denies any known Hx of retinopathy but states that she has never been seen by an Opthalmolog ist. She does have evidence of proteinuria on her prior UA's and has an elevated Pro/Cr rat io at 1.84. She declined to do a 24 Hr collection. Her renal US shows the Right kidney to b e 10.2 cm, and Left 11.4 cm, with no obstruction and increased echogenicity bilaterally. S he denies a history of Hypertension. She does admit to a long Hx of RA dating back 12 years which is treated by a Mold Construction Supervisor in [facility], Dr. Pacheco Castillo, and states that she is now on weekly SQ injections with Humira. She does give a significant history of Ibuprofen use daily, for 2-3 years, but this was > 8 years ago. She denies edema, hematuria, foamy ur ine, dysuria, or acutely worsening BP. She states that she has been chronically anemic with her for 2-3 years. PAST MEDICAL HISTORY: 1. Type 2 DM, possibly up to 13 years, per her history. She is unsure of end-organ damage ? 2. Rheumatoid Arthritis x 12 years, now in remission on SQ Humira, weekly. This was compl icated by a pleural effusion at one time. 3. 2 vessel CAD, with the pt undergoing PCI w/o stents from records in [facility] , to mid-CX in 11/21/12, and to Mid-RCA, 11/23/15. She has been stable on metoprolol, atorvastatin, ASA, and prasugrel. 4. Hypochromic, microcytic anemia with previous low Fe levels in November,, c/w both anem ia 2' to chronic disease, and Fe deficiency anemia? She believes that she had colonoscopy a nd EGD by Dr. Beavers at the [facility] which were negative, approximately one year ago . 5. COPD, not requiring home O2, or steroids, x 2 years per the pt. 6. Probable hyperlipidemia x3 years , at least, but possibly longer? PAST SURGICAL HISTORY: 1. Tonsillectomy, age 6. 2. Cholecystectomy, age 39. 3. Removal of tubal , 1979. MEDS: Outpatient Prescriptions Marked as Taking for the 07/22/16 encounter (Off-Site Visit) with Hali Retana, DO Medication Sig Dispense Refill adalimumab (HUMIRA PEN) 40 mg/0.8 mL injection (pen) Inject 0.8 mLs under the skin ever y 7 days. [DISCONTINUED] ANUCORT-HC 25 MG suppository Insert 1 suppository every 4-6 hours as nee ded 0 aspirin 81 mg chewable tablet Take 81 mg by mouth Daily. atorvaSTATin (LIPITOR) 80 MG tablet Take 1 tablet by mouth nightly. 90 tablet 3 BD PEN NEEDLE MAREYL U/F 32G X 4 MM MISC inject once daily 0 [DISCONTINUED] HYDROcodone-acetaminophen (NORCO) 5-325 mg per tablet Take 1 tablet by m outh every 4 hours as needed for Pain. 20 tablet 0 Iron Polysacch [id number]-[id number] (FERREX 150 FORTE PO) Take 1 tablet by mouth 2 times daily. [DISCONTINUED] isosorbide mononitrate (IMDUR) 30 mg ER tablet Take 1 tablet by mouth Da armaan. 90 tablet 3 metoprolol tartrate (LOPRESSOR) 50 mg tablet Take 1 tablet by mouth 2 times daily. 60 t ablet 0 nitroglycerin (NITROSTAT) 0.4 mg SL tablet Take one tablet under tongue as needed for c hest pain, may repeat every 5 minutes up to 3 doses. If no relief after 3rd dose, call 911 90 tablet 3 ONETOUCH VERIO strip 0 prasugrel (EFFIENT) 10 mg TABS Take 1 tablet by mouth Daily. 90 tablet 3 tiotropium (SPIRIVA) 18 mcg inhalation capsule Inhale 1 capsule into the lungs Daily. 9 0 capsule 3 Allergies Allergen Reactions Albuterol Other (See Comments) Gives her a headache SOCIAL HISTORY Smoking: Admits to smoking 1/2 pack/day x 29 years, but quit at age 47 with her first [place]. ETOH: denies. ; lives independently. 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 FAMILY HISTORY: Father: at age 53 of AMI, and had Type 2 DM, and HBP. Mother: alive, 80 years old, has CAD, s/p PCI, and has Type 2 DM, and HTN. 1 Brother: alive, good health. 1 Sister: alive, has CAD, is s/p PCI, unknown number of vessels. Review of Systems General: She denies fatigue, fever, night sweats, or weight loss in the last 6 months. HEENT: She denies headache, diplopia, blurred vision, epistaxis, sinusitis, or pharyngitis . Cardiovascular: She denies chest pain, palpitations, orthopnea, or PND. Pulmonary: She denies cough, hemoptysis, wheezing, or shortness of breath. GI: She denies nausea vomiting, epigastric pain, melena, hematemesis, hematochezia, or antoni nge in bowel habits. : She denies dysuria, hematuria, frequency, flank pain, or nocturia. Endocrine: She denies polydipsia, polyuria, temperature intolerance, or thyroid disorders. Hematologic: She denies rashes, purpura, bleeding gums, or easy bruising. Musculoskeletal: She admits to rare joint pain, in wrists, PIP joints, and elbows, but den ies new arthralgias, synovitis, or any new deformity. Neuropsychiatric: She denies seizures, syncope, depression, or suicidal ideation. Objective: BP 142/90 mmHg | Pulse 70 | Temp(Src) 37.1 C (98.8 F) | Resp 18 | Wt 95.3 kg (210 lb 1.6 oz) Physical Exam PHYSICAL EXAM: General: This is a well-developed, moderately obese, 51 year-old white female who is alert and oriented x3, and in NAD. HEENT: Normocephalic. Pupils are 4 mm / 4 mm and reactive. EOMI. There is (+) bilateral AV nicking, no papilledema, no hemorrhage. Posterior pharynx is clear, without injection. Neck: JVP's are < 7 cm at 45, no thyromegaly. Cardiovascular: Regular rate and rhythm, with no S3, S4, murmur or rub. Pulmonary/Chest: CTA in all [place]. No rales or wheezes. Abdominal: Soft, obese, nontender, normoactive bowel sounds, no organomegaly, no guarding, no bruit. Extremities: No clubbing, cyanosis, or edema. Some mild synovitis vs. fullness at MCP joints, symme trical, both hands? No foot ulcers. Neurological: Nonfocal, nonlateralizing. Lab Results Component Value Date NAEX 135 07/16/2016 KEX 4.1 07/16/2016 CLEX 108 07/16/2016 CO2EX 15* 07/16/2016 BUNEX 25* 07/16/2016 CREEX 1.53* 07/16/2016 EGFREX 36 07/16/2016 GLUEX 116* 07/16/2016 CAEX 8.8 07/16/2016 PHOSEX 3.5 07/16/2016 PTHEX 146* 07/16/2016 Lab Results Component Value Date HBA1C 10.7* 11/20/2015 Lab Results Component Value Date WBCEX 17* 07/16/2016 HGBEX 7.8* 07/16/2016 HCTEX 29.2* 07/16/2016 HEMOGRAMEX 62* 07/16/2016 HEMOGRAMEX 22.4* 07/16/2016 PLTEX 248 07/16/2016 Lab Results Component Value Date IRON 51 11/24/2015 PCTSAT 16.5* 11/24/2015 FERRITIN 12 11/20/2015 Lab Results Component Value Date PROTEX 1.84* 07/16/2016 <= (urine Pro/Cr ratio) Assessment: 1. Stage 3 CKD--diff. dx include diabetic glomerulosclerosis, hypertensive nephrosclerosis , or occult Myeloma kidney. Cannot exclude idiopathic GN but feels that is less likely with her longer Hx of Type 2 DM of uncertain control in the past? Also, her complements, and ANCA were negative in 2013, whic h make it less likely, although does not completely exclude it. 2. Type 2 DM, requiring insulin--cannot exclude that this is 2' to macroalbuminuria? 3. 2 vessel CAD, s/p PCI to Mid-CX 2012, mid-RCA 11/23/15--stable. 4. possible Hypertension--fairly good control. 5. Rheumatoid Arthritis--in remission on Humira, SQ. 6. hypochromic , microcytic anemia--suspicious for anemia 2' to chronic disease and Fe def iciency? 7. Hyperlipidemia--on statin Rx. 8. COPD--compensated. Plan: 1. I discussed with Jessie that I am suspicious that she has established diabetic glomerulo sclerosis, given her proteinuria. Cannot completely exclude idiopathic GN, but that would en tail a renal core Bx, and at the current GFR, there is little likelihood that this could be reversed with drug Rx at this point. 2. In lieu of that , will recheck her C3, C4, ANCA, UNA, RA, HBsAg, HCV Ab, and SPEP. 3. I discussed that the mainstay of preventing progression is optimal glycemic control wit h target HbA1c < 7.0 %, and target BP < 130/80 mmHg. Also, I discussed that she may benefit from introduction of an ACEI or ARB over time. 4. In regards to her anemia, after her Fe stores are repleted, eg. TSat . 20%, and ferriti n >200, she may benefit from EPO weekly , or SQ Aranesp, every 2 weeks? 5. She is agreeable to doing a 24 Hr urine to exactly quantify her proteinuria, next visit . Will plan to see her back in 3 mo. at the [facility] at [facility]. She will have a CBC, CMP, PO4, PTH, Hbaic, lipid profile, 24 Hr urine collection + (the above serology), one week prior to that. 6. Will discuss with her addition of a low dose ACEI at that time. Thank you for the chance to see this very interesting patient. Please feel free to call me at any time, if any questions arise. : Lay Castillo MD, Rheumatology, [place], [place] Marissa Rouse MD, [facility] documented in th is encounter Plan of Treatment Not on filedocumented as of this encounter Visit Diagnoses + + | Diagnosis | + + | Rheumatoid arthritis involving multiple sites, unspecified rheumatoid factor presence | | (HCC) - Primary | + + | Chronic kidney disease, stage III (moderate) (HCC) Chronic kidney disease, Stage III | | (moderate) | + + | Uncontrolled type 2 diabetes mellitus with hyperglycemia, with long-term current use | | of insulin (HCC) | + + | Anemia of chronic renal failure, unspecified stage | + + documented in this encounter
--- OUTSIDE RECORDS SUMMARY | ~2019-11-29 | XMS | Encounter Summary ---
Demographics + + + | Address | [address] | | | [place] [address] | + + + | Home Phone | | + + + | Preferred Language | Unknown | + + + | Marital Status | | + + + | Baptism Affiliation | Unknown | + + + | Race | Unknown | + + + | Ethnic Group | Unknown | + + + Author + + + | Author | [facility] | | | and [place] | + + + | Organization | [facility] | | [...] Team Providers + +------+ + | Care Semiconductor Bonder Name | Role | Phone | + +------+ + | Kyle Richey DO | PCP | | + +------+ + Reason for Visit + +--------+ + | Reason | Onset | Comments | | | Date | | + +--------+ + | Diabetes Education | 11/27/ | | | | 2016 | | + +--------+ + Encounter Details +--------+ + + + + | Date | Type | Department | Care Team | Description | +--------+ + + + + | 11/27/ | Telephone | [facility] | Mariela Landis RN | Diabetes Education | | 2016 | | [facility] | | | | | | EDUCATION [address] | | | | | | [place], | | | | | | [place] [address] | | | | | | [phone] | | | +--------+ + + + [...] this encounter Miscellaneous Notes Telephone Encounter - Mariela Landis RN - 11/28/2015 2:25 PM PDTPharmacist requested I ca ll and help patient determine how to get more strips for her glucometer. I called her and le t her know to call Dr. Richey's office and request that they send in a prescription for thos e. I let her know that each insurance company covers different meters, so she may need to alberto ve them order a meter as well so that her insurance will cover the appropriate strips. Also, so wanted to reschedule her appointment in with diabetes education, so I let her know she n eeds to have her doctor fax over a referral for outpatient diabetes education and that we wo uld then call her and work out a time to schedule an appointment with her. She stated that s he did not have any other questions at this time. documented in this encounter Plan of Treatment Not on filedocumented as of this encounter Visit Diagnoses Not on filedocumented in this encounter"
--- OUTSIDE RECORDS SUMMARY | ~2019-11-29 | XMS | Encounter Summary ---
Demographics + + + | Address | [address] | | | [place] [address] | + + + | Home Phone | | + + + | Preferred Language | Unknown | + + + | Marital Status | | + + + | Yazdanism Affiliation | Unknown | + + + | Race | Unknown | + + + | Ethnic Group | Unknown | + + + Author + + + | Author | [facility] | | | and [place] | + + + | Organization | [facility] | | [...] Team Providers + +------+ + | Care Violin Restorer Name | Role | Phone | + [...] Description | +--------+---------+ + + + | 05/07/ | Office | [facility] | [place], | Coronary artery | | 2015 | Visit | CARDIOLOGY [address] | [address]un [address] | disease involving | | | | [place], | [place], | [place] | | | | [place] [address] | [place] [address] | artery of [place] | | | | [phone] | [phone] | heart without angina | | | | | | pectoris (Primary | | | | | | Dx); Type 2 diabetes | | | | | | mellitus without | | | | | | complication, | | | | | | without long-term | | | | | | current use of | | | | | | insulin (HCC); Acute | | | | | | coronary syndrome | | | | | | (HCC) | +--------+---------+ + + + Social [...] + + + | Blood Pressure | 128/72 | 05/07/2016 2:05 PM | | | | | PST | | + + + + + | Pulse | 70 | 05/07/2016 2:05 PM | | | | | PST | | + + + + + | Temperature | - | - | | + + + + + | Respiratory Rate | 14 | 05/07/2016 2:05 PM | | | | | PST | | + + + + + | Oxygen Saturation | - | - | | + + + + + | Inhaled Oxygen | - | - | | | Concentration | | | | + + + + + | Weight | 96.2 kg (212 lb) | 05/07/2016 2:05 PM | | | | | PST | | + + + + + | Height | 157.5 cm (5' 2") | 05/07/2016 2:05 PM | | | | | PST | | + + + + + | Body Mass Index | 38.78 | 05/07/2016 2:05 PM | | | | | PST | | + + + + + documented in this encounter Patient Instructions Patient Instructions Lay Cherry ARNP - 05/07/2016 2:36 PM PST1. Increase Isosorbide 30 mg once daily (the whole pill once a day) 2. Increase Atorvastatin 80 mg every evening (take 2 pills until you start the new bottle a nd then take only 1 pill) 3. Start walking documented in this encounter Progress Notes Lay Cherry ARNP - 05/07/2016 1:55 PM PSTFormatting of this note might be different f rom the original. PATIENT NAME: Jessie Casarez : 1965: AGE: 51 y.o. PRIMARY CARE: Kyle Richey DO OUTPATIENT FOLLOW UP VISIT Date of Service: 05/07/2016 HISTORY OF PRESENT ILLNESS: Jessie Casarez is a 51 y.o. female with a history of coronary artery disease involving sarah danielle coronary artery of [place] heart without angina pectoris post non-STEMI post PTCA and carolyn nt of RCA by Dr. Bell on 11/23/15, type II diabetes, essential hypertension, mixed hyperlipi demia, obesity, stage III chronic kidney disease, noncompliant, suspecting obstructive sleep apnea. She is being seen today for follow up coronary artery disease, hypertension and hyp erlipidemia. She was last seen 03/12/2016 at which time her Lipitor was increased to 80 mg every evening she was scheduled for an angiogram to further evaluate chest pressure and heaviness for whi ch she was to hold metformin into the renal protocol, she was to start isosorbide mononitrat e 15 mg every day and follow-up in 2-4 weeks. Since that time, she has noticed that the iso sorbide has helped with some of the chest pain. She is definitely having shortness of breat h with minimal exertion. At one point in the past she was being seen by Dr. Coto but alberto s not been seen in a while. She has history of smoking for 20 years. However, patient has n ot been exercising or doing any kind of physical activity other than working. She has had n o lightheadedness or dizziness. Her appointment with endocrinology was moved and she is con cerned because her blood sugars have been in the high 200's consistently. She has not had an y increase in leg swelling. She has not been seen by nephrology. MEDICAL, SURGICAL, AND PERSONAL HISTORY Past Medical, Surgical, Family, and Social History are reviewed in EPIC. CURRENT PROBLEMS Patient Active Problem List Diagnosis Extrapulmonary TB (tuberculosis) RA (rheumatoid arthritis) Pleural effusion Coronary artery disease involving [place] coronary artery of [place] heart without angina pectoris CKD (chronic kidney [...] mononitrate (IMDUR) 30 mg ER tablet Take 0.5 tablets by mouth Daily. 30 tabl et 3 metFORMIN (GLUCOPHAGE) 500 mg tablet Take one [...] of Systems Constitutional: Negative for malaise/fatigue. Respiratory: Positive for shortness of breath. Cardiovascular: Negative for chest pain, palpitations and leg swelling. Chest Tightness = Yes Neurological: Negative for dizziness and weakness. Lightheaded = No OBJECTIVE: PHYSICAL EXAM BP 128/72 mmHg | Pulse 70 | Resp 14 | Ht 1.575 m (5' 2") | Wt 96.163 kg (212 lb) | BMI 38.7 7 kg/m2 Physical Exam Constitutional: She appears well-developed [...] visit (interpreted and sharmila led by another provider): Results for orders placed or performed in visit on 02/22/16 ECG 12 lead Result Value Ref Range INTERPRETATION TEXT Normal sinus rhythm Normal ECG When compared with ECG of 18-JAN-2016 15:20, No significant change was found Confirmed by MARYANN RHODES MD ([id number]) on 02/22/2016 4:38:34 PM LAB RESULTS reviewed during visit today primarily from [facility]: LIPID Lab Results Component Value [...] PLTEX 291 09/08/2014 I reviewed records from [facility] for office visit on 03/25/2016 which is summarized in the HPI. [facility] 03/25/16, shows non-critical coronary artery disease; 50-70% stenosis at the midportion of the left circumflex artery, FFR of 0.98, open stents of the mid RCA, there is a co-domin ate circulation, normal LV systolic function with an EF of 65%, systemic blood pressure is n ormal, there was successful angio seal placement to the puncture site in the right femoral a rtery. PLAN: Risk factor modification and Medical management. Above data and testing is reviewed this visit; testing below is historical data unless othe rwise specified. ASSESSMENT: 1. Coronary artery disease involving [place] coronary artery of [place] heart without angina pectoris/non-STEMI: A. Post non-STEMI. Left heart cath on 11/21/12 showed 95% stenosis of the LCx, 20-30% stenosis of the proximal RCA. Status post PTCA and stents x 2 of the L Cx.Since that time, she saw a respiratory therapy manager for couple times and loss of follow-up. B. Echocardiogram on 11/20/15 showed Mild biatrial dilatation. Maria l left ventricular size, wall thickness and motion. Preserved left ventricular systolic func tion. LVEF is 60%. Normal valvular structure. Normal right-sided pressure. Normal IVC with n ormal respiratory collapse. C. She started having a chest pain on 11/17/15 while she was working at the [employer]. She described it as a chest pressure 11/18 that radiated across the chest wa ll and was associated some shortness of breath. No palpitation, dizziness or lightheadedne ss. No sweating. She waited until 11/19/15 when she had recurrent bad chest pain that too k her to the ED of [facility] in [place]. She was found to have blood sugar of almost 1000 and troponin of 0.5. She was transferred to [facility]. D. Left heart cath on 11/21/15 [...] by gated SPECT is 64 %. G. [facility] 03/25/16, shows non-critical coronary artery disease; 50-70% [...] Risk factor modification and Medical management. H. Patient has experienced improvement in chest pain since starting the Isosorbide. She co ntinues having dyspnea on exertion of walking. She had previously been seen by breakfast cook but it has been awhile, she has been using Spiriva. Her appointment with endocrinology was recently changed and is now in 2 weeks, her blood glucose has been almost in the 300's. She has not been exercising at all. 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 There is no flu id retention on physical examination. She is on a combination of aspirin, metoprolol , [place] nt, isosorbide and atorvastatin. 2. Essential hypertension with goal [...] on ce weekly by Dr. Castillo in [place]. 5. Acute kidney injury on top of the stage III chronic kidney disease A. She also seen a plant supervisor at [facility] but recently los t follow-up. B. EGFR is 29. We will refer to nephrologists. 6. Obesity and Inactivity 7. Hyperlipidemia, mixed: A. She is on Lipitor, recently increased dose with plan of further increasing it 10. Suspecting obstructive sleep apnea A. Patient has 4/8 on stop bag questionnaire. Awaiting consultati on on 03/2016. PLAN: 1. Increase isosorbide mononitrate 30 mg once every day by mouth 2. Increase Atorvastatin 80 mg once every evening 3. Referral back to pulmonology (patient is already an established patient) for COPD and dy spnea on exertion 4. Referral to nephrology for chronic kidney failure 5. Patient has been highly encouraged to start walking regularly and to keep appointment [facility] endocrinology for uncontrolled diabetes. 6. She will see Dr. Beavers as schedule in 10 weeks or sooner if worsening of cardiac symptoms Portions of this chart may have been created with [employer] voice recognition software. Occasi onal wrong-word or [...] + + | Coronary artery disease involving [place] coronary artery of [place] heart without | | angina pectoris - Primary | + + | Type 2 diabetes mellitus without complication, without long-term current use of | | insulin (HCC) | + + | Acute coronary syndrome (HCC) Intermediate coronary syndrome | + + documented in this encounter
--- OUTSIDE RECORDS SUMMARY | ~2019-11-29 | XMS | Encounter Summary ---
Demographics + + + | Address | [address] | | | [place] [address] | + + + | Home Phone | | + + + | Preferred Language | Unknown | + + + | Marital Status | | + + + | Anabaptism Affiliation | Unknown | + + + | Race | Unknown | + + + | Ethnic Group | Unknown | + + + Author + + + | Author | [facility] | | | and [place] | + + + | Organization | [facility] | [...] Team Providers + +------+ + | Care Materials Planning Manager Name | Role | Phone | [...] mellitus | [address] | | | | | without | [place] | [place], | | | | | complication | [place], | [place] | | | | | , without | [place] | [address] | | | | | long-term | [phone] | Phone: | | | | | current use | Phone: | [phone] | | | | | of insulin | [phone] | Fax: | | | | | (HCC) | Fax: | [phone] | | | | | Procedures | [phone] | | | | | | RI DIAB | | | | | | | MANAGE TRN | | | | | | | PER INDIV | | | | | | | RI DIAB | | | | | | [...] Description | +--------+---------+ + + + | 02/21/ | Office | [facility] | [place], | Coronary artery | | 2015 | Visit | CARDIOLOGY [address] | [address] | disease involving | | | | [place], | [place], | [place] | | | | [place] [address] | [place] [address] | artery of [place] | | | | [phone] | [phone] | heart without angina | | | | | | pectoris (Primary | | | | | | Dx); Pleural | | | | | | effusion; Non-ST | | | | | | elevation myocardial | | | | | | infarction | | | | | | (NSTEMI), initial | | | | | | episode of care | | | | | | ([facility]); Acute | | | | | | coronary syndrome | | | | | | ([facility]); Type 2 | | | | | | diabetes mellitus | | | | | | without | | | | | | complication, | | | | | | without long-term | | | | | | current use of | | | | | | insulin ([facility]) | +--------+---------+ + + + Social History [...] + + + | Blood Pressure | 118/72 | 02/22/2016 2:13 PM | | | | | PDT | | + + + + + | Pulse | 68 | 02/22/2016 2:13 PM | | | | | PDT | | + + + + + | Temperature | - | - | | + + + + + | Respiratory Rate | 12 | 02/22/2016 2:13 PM | | | | | PDT | | + + + + + | Oxygen Saturation | - | - | | + + + + + | Inhaled Oxygen | - | - | | | Concentration | | | | + + + + + | Weight | 94.8 kg (209 lb) | 02/22/2016 2:13 PM | | | | | PDT | | + + + + + | Height | 157.5 cm (5' 2") | 02/22/2016 2:13 PM | | | | | PDT | | + + + + + | Body Mass Index | 38.23 | 02/22/2016 2:13 PM | | | | | PDT | | + + + + + documented in this encounter Patient Instructions Patient Instructions Lay Cherry ARNP - 02/22/2016 3:16 PM PDT1. Increase Atorvastati n 40 mg once every evening 2. Exercise Myoview Date: Check-in Time: Where to Check In: Instructions 1. Nothing to eat or drink anything 4 hours prior to test 2. DO NOT drink caffeine 12 hours prior to the test. 3. DO NOT take any Metoprolol the night before or the morning of the test. 4. You can take all other medications the morning of the test with a small sip of water. 5. Please bring a list of your current medications with you. 6. Exercise Myoview: wear comfortable clothes and walking shoes. Resting Portion of test: Date: Check-in Time: Where to Check In: 3. Referral to health educator and endocrinology - order for these will be put in, someon e from those offices will call you to arrange an appointment. 4. Follow up appointment: 2-4 weeks Provider: LUIZ Nino Date: Check-In Time: documented in this encounter Progress Notes Lay Cherry ARNP - 02/22/2016 1:58 PM PDTFormatting of this note might be different f rom the original. PATIENT NAME: Jessie Casarez : 1965: AGE: 51 y.o. PRIMARY CARE: Kyle Richey DO OUTPATIENT FOLLOW UP VISIT Date of Service: 02/22/2016 HISTORY OF PRESENT ILLNESS: Jessie Casarez is a 51 y.o. female with a history of coronary artery disease involving sarah danielle coronary artery of [place] heart without angina pectoris post non-STEMI post PTCA and carolyn nt of RCA by Dr. Bell on 11/23/15, type II diabetes, essential hypertension, mixed hyperlipi demia, obesity, stage III chronic kidney disease, noncompliant, suspecting obstructive sleep apnea. She is being seen today for follow up coronary artery disease, hypertension, hyperl ipidemia. She was last seen 01/18/2016 at which time she was to continue following DASH and follow up in 6 months. Since that time, she called our office because of having in on and off chest pains and shortness of breath when walking. She has had a poor energy level. She has not be en very active. She enjoys watching TV in her spare time. She has had exertional chest dis omfort. This also happens when she is resting and not exerting. She has had shortness of b reath with exertion of Walking. She states that this has been more noticeable now that what used to be right after stent placement. She states that this reminds her of the way she fel t before the stent and it has gotten progressively worse.. She has not had any lightheadedn ess or dizziness. She has not noticed palpitations. She has noticed mild swelling at ankle s by the end of the day that is resolved in the morning, which has been stable for her. She sleeps on 1 pillow at night without any shortness of breath. She will be undergoing consul tation the first week of [facility]. MEDICAL, SURGICAL, AND PERSONAL HISTORY Past Medical, Surgical, Family, and Social History are reviewed in EPIC. CURRENT PROBLEMS Patient Active Problem List Diagnosis Extrapulmonary TB (tuberculosis) RA (rheumatoid arthritis) Pleural effusion Coronary artery disease involving [place] coronary artery of [place] heart without angina pectoris CKD (chronic kidney [...] 0 lisinopril (PRINIVIL, ZESTRIL) 10 mg tablet PATIENT STATED NO LONGER TAKING THIS MEDICA TION. STATED ON 02/22/2016. Take one tablet daily 0 metFORMIN (GLUCOPHAGE) [...] for shortness of breath. Cardiovascular: Positive for leg swelling. Negative for chest pain and palpitations. Chest Spasms = Yes Neurological: Positive for tingling. Negative for dizziness and weakness. Lightheaded = No OBJECTIVE: PHYSICAL EXAM BP 118/72 mmHg | Pulse 68 | Resp 12 | Ht 1.575 m (5' 2") | Wt 94.802 kg (209 lb) | BMI 38.2 2 kg/m2 Physical Exam Constitutional: She appears well-developed [...] led by another provider- Dr. Rouse) from 02/22/2016 shows a normal sinus rhythm and hear t rate of 88 bpm with no acute ST T changes. LAB RESULTS reviewed during visit today primarily [...] PLTEX 291 09/08/2014 I reviewed records from [facility] for office visit on 01/18/2016 which is summarized in the HPI. Above data and testing is reviewed this visit; testing below is historical data unless othe rwise specified. ASSESSMENT: 1. Coronary artery disease involving [place] coronary artery of [place] heart without angina pectoris/non-STEMI: A. Post non-STEMI. Left heart cath on 11/21/12 showed 95% stenosis of the LCx, 20-30% stenosis of the proximal RCA. Status post PTCA and stents x 2 of the L Cx.Since that time, she saw a level vial inspector for couple times and loss of follow-up. B. Echocardiogram on 11/20/15 showed Mild biatrial dilatation. Marai l left ventricular size, wall thickness and motion. Preserved left ventricular systolic func tion. LVEF is 60%. Normal valvular structure. Normal right-sided pressure. Normal IVC with n ormal respiratory collapse. C. She started having a chest pain on 11/17/15 while she was working at the [employer]. She described it as a chest pressure 11/18 that radiated across the chest wa ll and was associated some shortness of breath. No palpitation, dizziness or lightheadedne ss. No sweating. She waited until 11/19/15 when she had recurrent bad chest pain that too k her to the ED of [facility] in [place]. She was found to have blood sugar of almost 1000 and troponin of 0.5. She was transferred to [facility]. D. Left heart cath on 11/21/15 [...] Bell on 11/23/15 . G. Today, patient come in with complaints of increasing dyspnea on exertion that she feels like what happened before she got admitted and got stented. She states that this dyspnea wa s totally gone and improved right after the stenting. She also is having some atypical angin a at rest and on exertion. She has tried NTG SL with relieve. She has not started exercisin g on a regular basis yet. She is in a class II of [place] Heart Association functional clas s.There is no signs or symptoms of overt congestive heart failure. There is no fluid ret ention on physical examination today but patient refers having days with edema. She is on a combination of aspirin, metoprolol , Effient and atorvastatin. She will be schedule for stress test to further stratify coronary artery disease. Also her statin will be increased and her diabetes needs better controlled. She will be refer to xiomara aguilera educator and endocrinology 2. Essential hypertension with goal blood pressure [...] on ce weekly by Dr. Castillo in [place]. 5. Acute kidney injury on top of the stage III chronic kidney disease A. She also seen a oil driller at [facility] but recently los t follow-up. B. EGFR is 33. 6. Obesity and Inactivity 7. Hyperlipidemia, mixed: A. She is on Lipitor in accordance to guidelines we will increase d ose. 10. Suspecting obstructive sleep apnea A. Patient has 4/8 on stop bag questionnaire. Awaiting consultation on 03/2016. PLAN: 1. Schedule patient for exercise Myoview stress test to further stratify coronary artery di sease. If her results are negative she either will be a candidate for further testing and a trial of long-acting nitrates could also be beneficial 2. Increase Atorvastatin 40 mg by mouth daily at bedtime 3. Patient has been instructed to utilize nitroglycerin as needed for angina or increased dyspnea on exertion 4. She will follow up in 2-4 weeks, or sooner with concerns. Portions of this chart may have been created with [employer] voice recognition software. Occasi onal wrong-word or [...] | ECG 12 LEAD | Routin | 02/22/2016 | Coronary artery | Results for this | | | e | 2:13 PM | disease involving | procedure are in the | | | | PDT | eastern shoshone coronary | results section. | | | | | artery of eastern shoshone | | | | | | heart without angina | | | | | | pectoris | | + +--------+ + + + documented in this encounter Results ECG 12 lead (02/22/2016 2:13 PM PDT) + + + + + + | Component | Value | Ref Range | Performed | Pathologist | | | | | At | Signature | + + + + + + | VENTRICULAR | 88 | BPM | [facility] | | | RATE EKG | | | | | + + + + + + | ATRIAL RATE | 88 | BPM | [facility] | | + + + + + + | P-R | 126 | ms | [facility] | | | INTERVAL | | | | | + + + + + + | QRS | 78 | ms | [facility] | | | DURATION | | | | | + + + + + + | Q-T | 354 | ms | [facility] | | | INTERVAL | | | | | + + + + + + | Q-T | 428 | ms | [facility] | | | INTERVAL | | | | | | (CORRECTED) | | | | | + + + + + + | P WAVE AXIS | 43 | degrees | [facility] | | + + + + + + | QRS AXIS | -28 | degrees | [facility] | | + + + + + + | T AXIS | 68 | degrees | [facility] | | + + + + + + | INTERPRETAT | Normal sinus | | [facility] | | | ION TEXT | rhythmNormal ECGWhen | | | | | | compared with ECG of | | | | | | 18-JAN-2016 15:20,No | | | | | | significant change was | | | | | | foundConfirmed by | | | | | | MEAGAN PERALES, MARYANN | | | | | | ([id number]) on 02/22/2016 | | | | | | 4:38:34 PM | | | | + + [...] + + | Coronary artery disease involving [place] coronary artery of [place] heart without | | angina pectoris - Primary | + + | Pleural effusion Unspecified pleural effusion | + + | Non-ST elevation myocardial infarction (NSTEMI), initial episode of care (HCC) Acute | | myocardial infarction, subendocardial infarction, initial episode of care | + + | Acute coronary syndrome (HCC) Intermediate coronary syndrome | + + | Type 2 diabetes mellitus without complication, without long-term current use of | | insulin (HCC) | + + documented in this encounter
--- OUTSIDE RECORDS SUMMARY | ~2019-11-29 | XMS | Encounter Summary ---
Demographics + + + | Address | [address] | | | [place] [address] | + + + | Home Phone | | + + + | Preferred Language | Unknown | + + + | Marital Status | | + + + | Quaker Affiliation | Unknown | + + + [...] Team Providers + +------+ + | Care Keyboard Instrument Tuner Name | Role | Phone | + [...] [address] [place] | | | | | [place], [place] | [place] [address] | | | | | [address] | [phone] | | | | | [phone] | | | +--------+ + + + [...] | + +--------+ + + + | HC NUCLEAR ANTIGEN | Routin | 10/28/2016 | | Results for this | | ANTIBODY - ANALYZER | e | | | procedure are in the | | | | | | results section. | + +--------+ + + + documented in this encounter Results HC NUCLEAR ANTIGEN ANTIBODY - ANALYZER (10/28/2016) + + + + + + | Component | Value | Ref Range | Performed | Pathologist | | | | | At | Signature | + + + + + + | UNA Titer 1 | 1:320 | 1:80 | | | + + + + + + | ANAPATTERN | Nucleolar | | | | + + + + + + + + | Specimen | + + | | + + + + + | Narrative | Performed At | + + + | A high titer nucleolar pattern is suggestive of progressive systemic | | | sclerosis. Suggest performing Anti-scleroderma to assist with | | | diagnosis. This is included in the UNA panel, test 1445, along with | | | other possible antibodies for identification. UNA TITER of 1:160 | | | or less may be seen in up to 4% of apparently healthy individuals, in | | | incidence with aging. These results should be considered in the | | | context of clinical findings and criteria established by the [employer] | | | College of [employer]ology. | | + + + documented in this encounter Visit Diagnoses Not on filedocumented in this encounter"
--- OUTSIDE RECORDS SUMMARY | ~2019-11-29 | XMS | Encounter Summary ---
Demographics + + + | Address | [address] | | | [place] [address] | + + + | Home Phone | | + + + | Preferred Language | Unknown | + + + | Marital Status | | + + + | Worship Affiliation | Unknown | + + + [...] Team Providers + +------+ + | Care Jewel Flat Surfacer Name | Role | Phone | + +------+ + | Kyle Richey DO | PCP | | + +------+ + Reason for Visit + +--------+ + | Reason | Onset | Comments | | | Date | | + +--------+ + | Medication Refill | 10/01/ | | | | 2016 | | + +--------+ + Encounter Details +--------+--------+ + + + | Date | Type | Department | Care Team | Description | +--------+--------+ + + + | 10/01/ | Refill | [facility] | [place], | Medication Refill | | 2015 | | PULMONARY [address] | Megha Mendoza MD | | | | | [place], | | | | | | [place] [address] | | | | | | [phone] | | | +--------+--------+ + + + [...] documented as of this encounter Miscellaneous Notes Addendum Note - Ines Griffin RN - 10/05/2015 4:21 PM PDT Addended by: DORIS GRIFFIN on: 10/05/2015 16:21 Modules accepted: Orders elephone Encoun Ines Rivas RN - 10/05/2015 4:17 PM PDTPatient calls and said she just called [facility] and they have not received the last two prescriptions we sent for Spiriva (09/10 07/25 & today 10/05/15) and asks me to call it in at [phone] option 2 and gave verbally ileana Enrique pharmacist at [facility]. (It will be shipped out to her house in 5-7 business da ys). ddendum Note - Ines Griffin RN - 10/05/2015 3:58 PM PDT Addended by: INES GRIFFIN on: 016 15:58 Modules accepted: Orders elephone Encoun Ines Rivas RN - 10/05/2015 3:54 PM PDTDiana said she called [facility] and the y didn't get the prescription that was sent 10/02/15. I told her our system showed they confi rmed receipt of it 10/02/15 around 3 pm. Resent prescription to [facility]. She will check with them tomorrow to make sure they got it (EPIC shows receipt confirmation at 15:54 today). El ectronically signed by Ines Griffin RN at 10/05/2015 3:58 PM PDTTelephone Encounter - Viviana Solorzano RN - 10/02/2015 3:40 PM PDTDianna called asking if the Spiriva prescrip tion could be sent to [facility] as at [facility] the 30 day cost is over $200.00. Prescript ion resent for a 3 month supply. documented in this encounter Plan of Treatment Not on filedocumented as of this encounter Visit Diagnoses Not on filedocumented in this encounter"
--- OUTSIDE RECORDS SUMMARY | ~2019-11-29 | XMS | Encounter Summary ---
Demographics + + + | Address | [address] | | | [place] [address] | + + + | Home Phone [...] Team Providers + +------+ + | Care Material Movers Name | Role | Phone | + +------+ + | Kyle Richey DO | PCP | | + +------+ + Reason for Referral Evaluate & Treat (Routine) + + + + + + + | Status | Reason | Specialty | Diagnoses / | Referred By | Referred To | | | | | Procedures | Contact | Contact | + + + + + + + | Authorized | Specialty | Gastroenterol | Diagnoses | Hu, | [facility] | | | Services | ogy | Acute | Damian | Gastroenterol | | | Required | | pancreatitis | Edward | ogy [address] | | | | | with | MD Tyrone | [address] | | | | | uninfected | [address] | [address] [place] | | | | | necrosis, | [address] [place] | [place], [place] | | | | | unspecified | [place], [place] | [address] | | | | | pancreatitis | [address] | Phone: | | | | | type | Phone: | [phone] | | | | | Duodenitis | [phone] | Fax: | | | | | Procedures | Fax: | [phone] | | | | | ELECTRONICS ASSEMBLER OFFICE | [phone] | | | | | | VISIT | | | + + + + + + + Reason for Visit + + + | Reason | Comments | + + + | Abdominal Pain | | + + + Encounter Details +--------+ + + + + | Date | Type | Department | Care Team | Description | +--------+ + + + + | 09/13/ | Emergency | [facility] | Damian Hu | Acute pancreatitis | | 2020 | | [facility] | Jac Hansen MD | with uninfected | | | | CENTER [address] | [address] | necrosis, | | | | [place], [place] | [place], [place] | unspecified | | | | [address] | [address] | pancreatitis type | | | | [phone] | | (Primary Dx); | | | | | | Duodenitis | +--------+ + + + + Social [...] documented in this encounter Discharge Instructions Instructions Damian Hu MD - 09/14/2019Return for severe worsening sympto ms. Please follow-up with your primary care physician. Please follow-up in GI Clinic. documented in this encounter Medications at Time [...] + + + +---------+ + + | glipiZIDE | Take 2.5 mg by mouth | | 0 | | | | (GLUCOTROL XL) 2.5 | daily (with | | | | | | mg 24 hr tablet | breakfast). | | | | | + + + +---------+ + + | | Take 1-2 tablets by | 20 | 0 | 05/20 | | | HYDROcodone-acetamin | mouth every 6 hours | tablet | | 20 | | | ophen (NORCO) 5-325 | as [...] + +---------+ + + | metoprolol | TAKE 1 TABLET BY | | 0 | 08/13/19 | | | succinate | MOUTH ONCE DAILY | | | 20 | | | (TOPROL-XL) 25 mg 24 | | | | | | | hr tablet | | | | | | + + + +---------+ + + | omeprazole | Take 1 capsule by | 30 | 0 | 09/14/19 | | | (PRILOSEC) 40 MG | mouth every morning | capsule | | 20 | | | capsule | (before breakfast). | | | | | + + + +---------+ + + | ondansetron | Take 1 tablet by | 15 | 0 | 09/14/19 | | | (ZOFRAN ODT) 4 mg | mouth every 6 hours | tablet | | 20 | | | disintegrating | as needed for | | | | | | tablet | Nausea. | | | | | + + + +---------+ + + documented as of this encounter ED Notes Damian Hu MD - 09/14/2019 2:53 PM PDTFormatting of this note might be d ifferent from the original. [facility] Jessie Casarez EMERGENCY DEPARTMENT ENCOUNTER NOTE [address] [place] [address] PCP:Kyle Richey DO [phone] EMERGENCY DEPARTMENT ENCOUNTER CHIEF COMPLAINT Chief Complaint Patient presents with Abdominal Pain TRIAGE ED Triage Notes, ED Triage Notes Mary Mojica RN 09/14/2019 11:35 Epigastric abd pain, mid back pain, N/V/D since Friday. +Cardiac Hx of [place] in 2016. HPI Jessie Casarez is a 54 y.o. female who presents noted significant epigastric pain and midb ack pain. Some nausea and vomiting intermittently since Friday. She has some upper abdomin al pain. She is here for further evaluation. She is urgent Care and Found to Have an [place] cory Lipase. Patient's Here for Further Evaluation. PAST MEDICAL AND SURGICAL HISTORY I did review the patient's past medical and surgical history. 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 The patient has a past surgical history that includes Coronar y angioplasty with stent (11/2012); Cholecystectomy; SALPINGECTOMY (Left, ); thoracentes is (11/09/2011, 12/09/2011, 01/2012); Tonsillectomy (childhood); Colonoscopy (09/04/2015); Cardi ac catheterization (N/A, 11/21/2015); Cardiac catheterization (N/A, 11/23/2015); Cardiac donna terization (N/A, 03/25/2016); Cardiac catheterization (N/A, 03/25/2016); other surgical hist ory; tumor removal; Tonsillectomy and adenoidectomy; Cholecystectomy; Cardiac catheterizatio n (2012,2014); Colonoscopy; Hysterectomy (07/23/2018); Salpingo-oophorectomy (Right, 9); and other surgical history (Left, 07/23/2018). Family and Social History I did review the patient's family and social history. The patient's family history includes Arthritis in her sister; Diabetes in her father, mother, and sister; Diabetes, NIDDM in her father and mother; Heart attack in her father; High cholesterol in her father; Thyroid dise ase in her sister. The patient reports that she quit smoking about 7 years ago. Her smoking use included cigarettes. She started smoking about 37 years ago. She has never used smokeles s tobacco. She reports that she does not drink alcohol or use drugs. 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 aspirin 81 MG tablet Take 81 mg by mouth Daily. atorvaSTATin (LIPITOR) 80 MG tablet Take 1 tablet by mouth nightly. glipiZIDE (GLUCOTROL XL) 2.5 mg 24 hr tablet Take 2.5 mg by mouth daily (with breakfast ). lisinopril (PRINIVIL, ZESTRIL) 10 mg tablet Take 1 tablet by mouth Daily. metoprolol succinate (TOPROL-XL) 25 mg 24 hr tablet TAKE 1 TABLET BY MOUTH ONCE DAILY Allergies Allergies Allergen Reactions Albuterol Itching and Other (See Comments) Headache Metformin Other (See Comments) Patient states it was contraindicated with another medication. Plavix [Clopidogrel] Other (See Comments) Reaction Unknown REVIEW OF SYSTEMS Please see HPI, All systems negative except as marked. Twelve point review of system comp leted my me. PHYSICAL EXAM VITAL SIGNS: Temp: 36.8 C (98.3 F) Pulse: 72 Resp: 16 SpO2: 98 % BP: 173/83 Constitutional: Well developed, Well nourished, Non-toxic appearance. HENT: Normocephalic, Atraumatic, Bilateral external ears normal, Oropharynx moist, No oral exudates, Nose normal. Neck- Normal range of motion, No tenderness, Supple, No stridor. Eyes: PERRL, EOMI, Conjunctiva normal, No discharge. Respiratory: Normal breath sounds, No respiratory distress, No wheezing, No chest tenderne ss. Cardiovascular: Normal heart rate, Normal rhythm, No murmurs, No rubs, No gallops. GI: Bowel sounds normal, moderate tenderness upper abdomen. No rebound tenderness no guar ding. No pulsatile masses. Musculoskeletal: Intact distal pulses, No edema, No tenderness, No cyanosis, No clubbing. Good range of motion in all major joints. No tenderness to palpation or major deformities no cory. Back:- No tenderness. Neurologic: Alert & oriented x 3, Normal motor function, Normal sensory function, No focal deficits noted, no facial assymetry noted. 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 RADIOLOGY Ct Abdomen Pelvis Wo Contrast Result Date: 09/14/2019 TECHNIQUE: Noncontrast axial CT imaging was obtained through the abdomen and pelvis with co malik and sagittal reformats. At least one of the following CT dose optimization techniques were used: Automated exposure control; Adjustment of mA and/or kV according to patient size; Use of iterative reconstruction technique. CLINICAL INFORMATION: Abdominal pain, acute, non localized COMPARISON: None available. FINDINGS: LOWER CHEST: Bases are clear. BONES: No acut e osseous abnormality. No concerning osteoblastic or osteolytic lesion. ABDOMEN/PELVIS: Abdo josesito wall: No inguinal lymphadenopathy. Postoperative changes at the anterior abdominal wal l inferior to umbilicus. Liver: No mass lesion. Gallbladder: Surgically absent. Pancreas: No mass or ductal dilatation. Spleen: Unremarkable. Adrenals: No nodule. Kidneys: No nephrolit hiasis or hydronephrosis. Nodular contour of both kidneys. Evaluation for a mass lesion is l imited without intravenous contrast. Ureters: No hydroureter. Urinary Bladder: No wall thick ening. Reproductive organs: No adnexal mass. Hysterectomy changes. Bowel: Normal appendix. T he proximal duodenum demonstrates mild circumferential wall thickening with mild surrounding inflammation. No evidence of bowel perforation. Scattered sigmoid diverticula without peric olonic inflammation. Peritoneum/retroperitoneum: No ascites, free air, or lymphadenopathy. V essels: Normal caliber of the abdominal aorta. Proximal duodenal wall thickening and surrounding inflammation most compatible with duodeni tis. Cannot exclude mucosal ulceration or underlying neoplastic process. Consider follow-up endoscopic evaluation if indicated. Dictated and Signed by: Nile Yu MD Electronical ly signed: 09/14/2019 1:30 PM LAB Labs Reviewed LACTIC ACID - Normal TROPONIN I - Normal EXTRA LAVENDER TOP TUBE EXTRA GREEN TOP TUBE EXTRA BLUE TOP TUBE EXTRA LAVENDER TOP TUBE ED COURSE & MEDICAL DECISION MAKING Pertinent Labs & Imaging studies reviewed. (See chart for details) Nursing notes reviewed. Patient with significant epigastric pain she has signs of duodenitis and pancreatitis on CT imaging. No sign of gallstone issue. Patient is able to tolerate oral fluids. She is giv en prescription for pain medicine nausea medicine. Recommend follow-up care with GI service s Dr. Beavers she recommends outpatient follow-up. His medications otherwise stable. She is e ncouraged to follow up GI clinic as an outpatient. New Prescriptions HYDROCODONE-ACETAMINOPHEN (NORCO) 5-325 MG PER TABLET Take 1-2 tablets by mouth every 6 hours as needed for Pain. OMEPRAZOLE (PRILOSEC) 40 MG CAPSULE Take 1 capsule by mouth every morning (before break fast). ONDANSETRON (ZOFRAN ODT) 4 MG DISINTEGRATING TABLET Take 1 tablet by mouth every 6 hour s as needed for Nausea. Discharge Instructions Return for severe worsening symptoms. Please follow-up with your primary care physician. Please follow-up in GI Clinic. FINAL IMPRESSION 1. Acute pancreatitis with uninfected necrosis, unspecified pancreatitis type Acute 2. Duodenitis Acute Portions of this chart may have been created with boo-box voice recognition software. Occasi onal wrong-word or sound-alike substitutions may have occurred due to the inherent mary itations of voice recognition software. Please read the chart carefully and recognize, using context, where these substitutions have occurred Damian Hu MD 09/14/19 1459 andie Mojica RN - 09/14/2019 11:34 AM PDTEpigastric abd pain, mid back pain, N/V/D since Friday. +Cardiac Hx of [place] in 2016. documented in this encounter Plan of Treatment + +------+--------+ + + | Name | Type | Priori | Associated Diagnoses | Date/Time | | | | ty | | | + +------+--------+ + + | ED INFORMATION | JUSTO | Routin | | 09/14/2019 11:28 AM | | EXCHANGE | | e | | PDT | + +------+--------+ + + + + +--------+ + + | Name | Type | Priori | Associated Diagnoses | Order Schedule | | | | ty | | | + + +--------+ + + | Gastroenterology | Outpatient | Routin | Acute pancreatitis | Ordered: 09/14/2019 | | [facility] - | Referral | e | with uninfected | | | [place]/Tem[place]ope/Concetta | | | necrosis, | | | | | | unspecified | | | | | | pancreatitis type | | | | | | Duodenitis | | + + +--------+ + + [...] | | n - | | | | | | 2020 | | | [...] | | | MRN: | | | [id number] | | | [id number] | | | riteri | | | [...] | | | St. | | | [place] | | | y | | | [...] | | | St. | | | [place] | | | y H. | | | [place] | | | [place] | | | [facility] | | | ncy | | | Chief | | | Compla | | | int: | | | FEVER | | | Aug | | | 26, | | | 2019 | | | [facility] | | | [facility] | | | [place] | | | y H. | | [...] | | | St. | | | [place] | | | y H. | | [...] | | e of | | | tan[place]ross | | | | | | cheung | | | ry | | | [...] | | | -[id number] | | | [id number] | | | [id number] | | | [...] [email or web address] | | | m | +---+--------+ documented in this encounter Results CT Abdomen Pelvis wo Contrast (09/14/2019 [...] if indicated. Dictated and Signed by: Nile Yu | | | MD Electronically signed: 09/14/2019 [...] Extra Lavender Top Tube (09/14/2019 12:44 PM PDT) + +-------+ + + + | Component | Value | Ref Range | Performed | Pathologist | | | | | At | Signature | + +-------+ + + + | Extra | Done | | [facility] | | | Lavender | | | [facility] | | | Top Tube | [...] | [address] | [place] | [phone] | | [facility] | | [address] | | | - LABORATORY | | [...] | Top Tube | | | [facility] | | | | | | [...] [address] | [place] | [phone] | | [facility] | | [address] | | | - LABORATORY | | [...] [address] | [place] | [phone] | | [facility] | | [address] | | | - LABORATORY | | | | + + + + + Extra Lavender Top Tube (09/14/2019 12:40 PM PDT) + +-------+ + + + | Component | Value | Ref Range | Performed | Pathologist | | | | | At | Signature | + +-------+ + + + | Extra | Done | | [facility] | | | Lavender | | | [facility] | | | Top Tube | | [...] [address] | [place] | [phone] | | [facility] | | [address] | | | - LABORATORY | | [...] | | | | Comment:Reference | | [facility] | | | | Ranges: 0.00-0.06 [...] | | | | | | [employer] | | | | | [...] [address] | [place] | [phone] | | [facility] | | [address] | | | - LABORATORY | | [...] | [address] | [place] | [phone] | | [facility] | | [address] | | | - LABORATORY | | [...] | | | | ALVA FLYNN MD ([id number]) | | | | | | on [...] | Diagnosis | + + | Acute pancreatitis with uninfected necrosis, unspecified pancreatitis type - Primary | + + | Duodenitis Duodenitis without mention of hemorrhage | + + documented in this encounter Administered Medications + +--------+ +------+------+------+ | Medication Order | MAR | Action | Dose | Rate | Site | | | Action | Date | | | | + +--------+ +------+------+------+ | morphine injection 4-8 mg 4-8 | Given | 09/14/19 | 4 mg | | | | mg, Intravenous, ONCE, 09/14/19 | | 20 12:44 | | | | | at 1220, For 1 dose | | PM PDT | | | | + +--------+ +------+------+------+ +---+---+ | | | +---+---+ + +-------+ +------+---+---+ | ondansetron (ZOFRAN) injection | Given | 09/14/19 | 4 mg | | | | 4 mg 4 mg, Intravenous, ONCE, | | 20 12:40 | | | | | 09/14/19 at 1220, For 1 dose | | PM PDT | | | | + +-------+ +------+---+---+ +---+---+ | | | +---+---+ + +---------+ +---------+-------+---+ | sodium chloride 0.9% (NS) bolus | New Bag | 09/14/19 | 500 mLs | 1000 | | | 500 mL 500 mL, Intravenous, | | 20 12:41 | | mL/hr | | | Administer over 30 Minutes, ONCE, | | PM PDT | | | | | 09/14/19 at 1220, For 1 dose | | | | | | + +---------+ +---------+-------+---+ +---+---+ | | | +---+---+ documented in this encounter
--- OUTSIDE RECORDS SUMMARY | ~2019-11-29 | XMS | Encounter Summary ---
Demographics + + + | Address | [address] | | | [place] [address] | + + + | Home Phone | | + + + | Preferred Language | Unknown | + + + | Marital Status | | + + + | Temple Affiliation | Unknown | + + + | Race | Unknown | + + + | Ethnic Group | Unknown | + + + Author + + + | Author | [facility] | | | and [place] | + + + | Organization | [facility] | | | [...] Team Providers + +------+ + | Care Singer Back Tender Name | Role | Phone | + +------+ + PCP | Unavailable | + +------+ + Encounter Details +--------+ + + + + | Date | Type | Department | Care Team | Description | +--------+ + + + + | 11/24/ | Emergency | [facility] | Irvin Nagel, | | | 2012 | | MEDICAL CENTER | [address] | | | | | EMERGENCY CENTER | [place] [address] | | | | | [address] | [phone] | | | | | [place] | | | | | | [address] | | | | | | [phone] | | | +--------+ + + + [...]
--- OUTSIDE RECORDS SUMMARY | ~2019-11-29 | XMS | Encounter Summary ---
Demographics + + + | Address | [address] | | | [place] [address] | + + + | Home Phone | | + + + | Preferred Language | Unknown | + + + | Marital Status | | + + + | Sikh Affiliation | Unknown | + + + | Race | Unknown | + + + | Ethnic Group | Unknown | + + + Author + + + | Author | [facility] | | | and [place] | + + + | Organization | [facility] | | | and [...] Team Providers + +------+ + | Care Institutional Aide Name | Role | Phone | + +------+ + | Kyle Richey DO | PCP | | + +------+ + Encounter Details +--------+ + + + + | Date | Type | Department | Care Team | Description | +--------+ + + + + | 03/25/ | Abstract | [facility] | Provider, | | | 2018 | | CARDIOLOGY [address] | MD Reginald Harmon | | | | | [place], | [place] | | | | | [place] [address] | [place] [address] | | | | | [phone] | | | +--------+ + + + [...] | EXTERNAL LAB: BUN | Routin | 02/20/2018 | | Results for this | | | e | | | procedure are in the | | | | | | results section. | + +--------+ + + + | EXTERNAL LAB: | Routin | 02/20/2018 | | Results for this | | GLUCOSE | e | | | procedure are in the | | | | | | results section. | + +--------+ + + + | EXTERNAL LAB: | Routin | 02/20/2018 | | Results for this | | GLUCOSE | e | | | procedure are in the | | | | | | results section. | + +--------+ + + + | EXTERNAL LAB: ALT | Routin | 02/20/2018 | | Results for this | | | e | | | procedure are in the | | | | | | results section. | + +--------+ + + + | EXTERNAL LAB: AST | Routin | 02/20/2018 | | Results for this | | | e | | | procedure are in the | | | | | | results section. | + +--------+ + + + | EXTERNAL LAB: | Routin | 02/20/2018 | | Results for this | | ALKALINE PHOSPHATASE | e | | | procedure are in the | | | | | | results section. | + +--------+ + + + | EXTERNAL LAB: | Routin | 02/20/2018 | | Results for this | | BILIRUBIN, TOTAL | e | | | procedure are in the | | | | | | results section. | + +--------+ + + + | EXTERNAL LAB: | Routin | 02/20/2018 | | Results for this | | ALBUMIN | e | | | procedure are in the | | | | | | results section. | + +--------+ + + + | EXTERNAL LAB: | Routin | 02/20/2018 | | Results for this | | PROTEIN, TOTAL | e | | | procedure are in the | | | | | | results section. | + +--------+ + + + | EXTERNAL LAB: | Routin | 02/20/2018 | | Results for this | | CALCIUM | e | | | procedure are in the | | | | | | results section. | + +--------+ + + + | EXTERNAL LAB: | Routin | 02/20/2018 | | Results for this | | CALCIUM | e | | | procedure are in the | | | | | | results section. | + +--------+ + + + | EXTERNAL LAB: CARBON | Routin | 02/20/2018 | | Results for this | | DIOXIDE | e | | | procedure are in the | | | | | | results section. | + +--------+ + + + | EXTERNAL LAB: | Routin | 02/20/2018 | | Results for this | | CHLORIDE | e | | | procedure are in the | | | | | | results section. | + +--------+ + + + | EXTERNAL LAB: | Routin | 02/20/2018 | | Results for this | | POTASSIUM | e | | | procedure are in the | | | | | | results section. | + +--------+ + + + | EXTERNAL LAB: SODIUM | Routin | 02/20/2018 | | Results for this | | | e | | | procedure are in the | | | | | | results section. | + +--------+ + + + | EXTERNAL LAB: CBC | Routin | 02/20/2018 | | Results for this | | | e | | | procedure are in the | | | | | | results section. | + +--------+ + + + | EXTERNAL LAB: | Routin | 02/20/2018 | | Results for this | | TRIGLYCERIDES | e | | | procedure are in the | | | | | | results section. | + +--------+ + + + | EXTERNAL LAB: | Routin | 02/20/2018 | | Results for this | | CHOLESTEROL, HDL | e | | | procedure are in the | | | | | | results section. | + +--------+ + + + | EXTERNAL LAB: | Routin | 02/20/2018 | | Results for this | | CHOLESTEROL, TOTAL | e | | | procedure are in the | | | | | | results section. | + +--------+ + + + | EXTERNAL LAB: | Routin | 02/20/2018 | | Results for this | | CHOLESTEROL, LDL | e | | | procedure are in the | | | | | | results section. | + +--------+ + + + | LIPID PANEL | Routin | 02/20/2018 | | Results for this | | | e | | | procedure are in the | | | | | | results section. | + +--------+ + + + | CBC NO DIFFERENTIAL | Routin | 02/20/2018 | | Results for this | | | e | | | procedure are in the | | | | | | results section. | + +--------+ + + + | COMPREHENSIVE | Routin | 02/20/2018 | | Results for this | | METABOLIC PANEL | e | | | procedure are in the | | | | | | results section. | + +--------+ + + + documented in this encounter Results CBC no Differential (02/20/2018) + + + + + + | Component | Value | Ref Range | Performed | Pathologist | | | | | At | Signature | + + + + + + | MCH | 22.7 (A) | 26.0 - 33.0 pg | | | + + + + + + | MCHC | 30.6 (A) | 31.0 - 36.0 % | | | + + + + + + | MPV | 8.6 | 0.0 - 12.0 fL | | | + + + + + + + + | Specimen | + + | Blood | + + External Lab: CBC (02/20/2018) + + + + + + | Component | Value | Ref Range | Performed | Pathologist | | | | | At | Signature | + + + + + + | WBC, | 9.2 | 4.3 - 11 | EXTERNAL | | | External | | | LAB | | + + + + + + | HGB, | 10.4 (A) | 12 - 16 | EXTERNAL | | | External | | | LAB | | + + + + + + | HCT, | 34.1 (A) | 38 - 47 | EXTERNAL | | | External | | | LAB | | + + + + + + | PLT, | 314 | 150 - 375 | EXTERNAL | | | External | | | LAB | | + + + + + + | RBC, | 4.59 | 4.2 - 5.4 | EXTERNAL | | | External | | | LAB | | + + + + + + | MCV, | 74 (A) | 82 - 100 | EXTERNAL | | | External | | | LAB | | + + + + + + | RDW, | 28 (A) | 11.6 - 16 | EXTERNAL [...] +---------+ + + External Lab: Cholesterol, LDL (02/20/2018) + +---------+ + + + | Component | Value | Ref Range | Performed | Pathologist | | | | | At | Signature | + +---------+ + + + | LDL | 167 (A) | 0 - 99 | EXTERNAL | | | Cholesterol | [...] | | | + +---------+ + + Lipid Panel (02/20/2018) + +---------+ + + + | Component | Value | Ref Range | Performed | Pathologist | | | | | At | Signature | + +---------+ + + + | Chol/HDL | 7.0 (A) | 0.0 - 5.0 | | | | Ratio | | | | | + +---------+ + + + + + | Specimen | + + | Blood | + + External Lab: Triglycerides (02/20/2018) + +---------+ + + + | Component | Value | Ref Range | Performed | Pathologist | | | | | At | Signature | + +---------+ + + + | Triglycerid | 363 (A) | 35 - 160 | EXTERNAL | | | es, | [...] +---------+ + + External Lab: Cholesterol, HDL (02/20/2018) + +-------+ + + + | Component | Value | Ref Range | Performed | Pathologist | | | | | At | Signature | + +-------+ + + + | HDL | 40 | 40 - 85 mg/dl | EXTERNAL | | | Cholesterol [...] +---------+ + + External Lab: Cholesterol, Total (02/20/2018) + +---------+ + + + | Component | Value | Ref Range | Performed | Pathologist | | | | | At | Signature | + +---------+ + + + | Cholesterol | 279 (A) | 120 - 200 mg/dl | EXTERNAL | | | [...] + +---------+ + + Comprehensive Metabolic Panel (02/20/2018) + +-------+ + + + | Component | Value | Ref Range | Performed | Pathologist | | | | | At | Signature | + +-------+ + + + | Anion Gap | 8 | 3 - 12 mmol/L | | | + +-------+ + + + | Bun/Creatin | 10.06 | | | | | ine | | | | | + +-------+ + + + + + | Specimen | + + | Blood | + + External Lab: Glucose (02/20/2018) + +---------+ + + + | Component | Value | Ref Range | Performed | Pathologist | | | | | At | Signature | + +---------+ + + + | Glucose, | 151 (A) | 70 - 100 | EXTERNAL [...] + +---------+ + + External Lab: ALT (02/20/2018) + +-------+ + + + | Component | Value | Ref Range | Performed | Pathologist | | | | | At | Signature | + +-------+ + + + | ALT, | 14 | 10 - 48 | EXTERNAL | [...] + +---------+ + + External Lab: AST (02/20/2018) + +-------+ + + + | Component | Value | Ref Range | Performed | Pathologist | | | | | At | Signature | + +-------+ + + + | AST, | 16 | 10 - 42 | EXTERNAL | [...] +---------+ + + External Lab: Alkaline Phosphatase (02/20/2018) + +-------+ + + + | Component | Value | Ref Range | Performed | Pathologist | | | | | At | Signature | + +-------+ + + + | ALP, | 55 | 32 - 92 | EXTERNAL | [...] +---------+ + + External Lab: Bilirubin, Total (02/20/2018) + +-------+ + + + | Component | Value | Ref Range | Performed | Pathologist | | | | | At | Signature | + +-------+ + + + | Bilirubin, | 0.4 | 0.2 - 1.2 | EXTERNAL | [...] + +---------+ + + External Lab: Albumin (02/20/2018) + +-------+ + + + | Component | Value | Ref Range | Performed | Pathologist | | | | | At | Signature | + +-------+ + + + | Albumin, | 4 | 3.5 - 5 | EXTERNAL | [...] +---------+ + + External Lab: Protein, Total (02/20/2018) + +-------+ + + + | Component | Value | Ref Range | Performed | Pathologist | | | | | At | Signature | + +-------+ + + + | Protein, | 7.5 | | EXTERNAL | | | Total, | [...] + +---------+ + + External Lab: Calcium (02/20/2018) + +-------+ + + + | Component [...] + +---------+ + + External Lab: MARIAJOSE (02/20/2018) + +-------+ + + + | Component | Value | Ref Range | Performed | Pathologist | | | | | At | Signature | + +-------+ + + + | BUN, | 16 | 7 - 18 | EXTERNAL | [...] + +---------+ + + External Lab: Glucose (02/20/2018) + +--------+ + + + | Component | Value | Ref Range | Performed | Pathologist | | | | | At | Signature | + +--------+ + + + | Glucose, | 15 (A) | 70 - 100 | EXTERNAL [...] + +---------+ + + External Lab: Calcium (02/20/2018) + +-------+ + + + | Component [...] +---------+ + + External Lab: Carbon Dioxide (02/20/2018) + +-------+ + + + | Component [...] + +---------+ + + External Lab: Chloride (02/20/2018) + +-------+ + + + | Component | Value | Ref Range | Performed | Pathologist | | | | | At | Signature | + +-------+ + + + | Chloride, | 106 | 98 - 107 | EXTERNAL | [...] + +---------+ + + External Lab: Potassium (02/20/2018) + +-------+ + + + | Component | Value | Ref Range | Performed | Pathologist | | | | | At | Signature | + +-------+ + + + | Potassium, | 3.7 | 3.6 - 5 | EXTERNAL | [...] + +---------+ + + External Lab: Sodium (02/20/2018) + +-------+ + + + | Component | Value | Ref Range | Performed | Pathologist | | | | | At | Signature | + +-------+ + + + | Sodium, | 136 | 135 - 145 | [...]
--- OUTSIDE RECORDS SUMMARY | ~2019-11-29 | XMS | Encounter Summary ---
Demographics + + + | Address | [address] | | | [place] [address] | + + + | Home Phone | | + + + | Preferred Language | Unknown | + + + | Marital Status | | + + + | Muslim Affiliation | Unknown | + + + | Race | Unknown | + + + | Ethnic Group | Unknown | + + + Author + + + | Author | [facility] | | | and [place] | + + + | Organization | [facility] | | | [...] Team Providers + +------+ + | Care K 9 Police Officer Name | Role | Phone | [...] [address] | | | | | [place], [place] | [place] [address] | | | | | [address] | [phone] | | | | | [phone] | | | +--------+ + + + [...]
--- OUTSIDE RECORDS SUMMARY | ~2019-11-29 | XMS | Encounter Summary ---
Demographics + + + | Address | [address] | | | [place] [address] | + + + | Home Phone | | + + + | Preferred Language | Unknown | + + + | Marital Status | | + + + | Pentecostalism Affiliation | Unknown | + + + | Race | Unknown | + + + | Ethnic Group | Unknown | + + + Author + + + | Author | [facility] | | | and [place] | + + + | Organization | [facility] | | [...] Team Providers + +------+ + | Care Issuer Name | Role | Phone | + +------+ + | Kyle Richey DO | PCP | | + +------+ + Reason for Visit + +--------+ + | Reason | Onset | Comments | | | Date | | + +--------+ + | Referral | 01/29/ | | | | 2018 | | + +--------+ + Encounter Details +--------+ + + + + | Date | Type | Department | Care Team | Description | +--------+ + + + + | 01/29/ | Telephone | [facility] | Elaine Frazier RN | Referral | | 2019 | | [facility] | | | | | | [facility] | | | | | | [address] | | | | | | [address] [place], | | | | | | [place] [address] | | | | | | [phone] | | | +--------+ + + + [...] this encounter Miscellaneous Notes Telephone Encounter - Elaine Frazier RN - 01/29/2019 9:[address] [facility] [place] called live. Provided patient's full name and . She states that they have received a referral for this patient and are requesting the patient's Operative Note a nd Discharge Summary for her hysterectomy in July. Printed notes and faxed to [phone]. documented in this enco unter Plan of Treatment Not on filedocumented as of this encounter Visit Diagnoses Not on filedocumented in this encounter"
--- OUTSIDE RECORDS SUMMARY | ~2019-11-29 | XMS | Encounter Summary ---
Demographics + + + | Address | [address] | | | [place] [address] | + + + | Home Phone | | + + + | Preferred Language | Unknown | + + + | Marital Status | | + + + | Jewish Affiliation | Unknown | + + + | Race | Unknown | + + + | Ethnic Group | Unknown | + + + Author + + + | Author | [facility] | | | and [place] | + + + | Organization | [facility] | | [...] Team Providers + +------+ + | Care Dye Beck Reel Operator Name | Role | Phone | + +------+ + | Kyle Richey DO | PCP | | + +------+ + Reason for Visit + +--------+ + | Reason | Onset | Comments | | | Date | | + +--------+ + | Lab Results | 07/17/ | | | | 2017 | | + +--------+ + Encounter Details +--------+ + + + + | Date | Type | Department | Care Team | Description | +--------+ + + + + | 07/17/ | Telephone | [facility] | Riaz Retana | Lab Results | | 2017 | | NEPHROLOGY [address] | M, DO [address] | | | | | [address] | [address] [place] | | | | | [place], [place] | [place] [address] | | | | | [address] | [phone] | | | | | [phone] | | | +--------+ + + + [...] this encounter Miscellaneous Notes Telephone Encounter - Mona Tate RN - 07/17/2016 11:00 AM PSTPatient is not aware sonia t anyone is addressing her anemia. She does report increased fatigue, dyspnea, no chest pain . Instructed patient to report to the ER to be evaluated, she verbalized understanding.Elect ronically signed by Mona Tate RN at 07/17/2016 11:02 AM PSTTelephone Encounter - Mona Flanagan RN - 07/17/2016 9:35 AM PSTLM for patient to call our office regarding her hgb of 7.8, WBC of 17. Attempted to notify Dr. Richey's nurse, they are out today, lab faxed to his office.Electro nically signed by Mona Tate RN at 07/17/2016 9:37 AM PSTdocumented in this encounter Plan of Treatment Not on filedocumented as of this encounter Visit Diagnoses Not on filedocumented in this encounter"
--- OUTSIDE RECORDS SUMMARY | ~2019-11-29 | XMS | Encounter Summary ---
Demographics + + + | Address | [address] | | | [place] [address] | + + + | Home Phone | | + + + | Preferred Language | Unknown | + + + | Marital Status | | + + + | Rastafari Affiliation | Unknown | + + + [...] Team Providers + +------+ + | Care Backup Operator Name | Role | Phone | [...] | | | | | | | CAD | | | | | | | Procedures | | | | | | | MA CATH | | | | | | | PLACE/CORON | | | | | | | ANGIO, IMG | | | | | | | SUPER/INTERP | | | | | | | ,W LEFT | | | | | | | HEART | | | | | | | VENTRICULOGR | | | | | | | APHY MA | | | | | | | RIGHT HEART | | | | | | | CATH O2 | | | | | | | SATURATION & | | | | | | | CARDIAC | | | | | | | OUTPUT MA | | | | | | | BIOPSY OF | | | | | | | HEART LINING | | | | | | | CV LHC CV | | | | | | | RHC | | | +--------+--------+ + + + + Encounter Details +--------+---------+ + + + | Date | Type | Department | Care Team | Description | +--------+---------+ + + + | 03/25/ | Surgery | [facility] | Marissa Rouse, | [facility] | | 2016 | | MED CTR CV [facility] OP | [address] | | | | | [address] | [address] [place], | | | | | [place] | [place] [address] | | | | | [address] | [phone] | | | | | [phone] | | | +--------+---------+ + + + [...] + + + | Blood Pressure | 135/63 | 03/25/2016 11:00 AM | | | | | PST | | + + + + + | Pulse | 88 | 03/25/2016 11:00 AM | | | | | PST | | + + + + + | Temperature | 36.3 C (97.3 F) | 03/25/2016 7:17 AM | | | | | PST | | + + + + + | Respiratory Rate | 18 | 03/25/2016 7:17 AM | | | | | PST | | + + + + + | Oxygen Saturation | 95% | 03/25/2016 11:00 AM | | | | | PST | | + + + + + | Inhaled Oxygen | - | - | | | Concentration | | | | + + + + + | Weight | 95.3 kg (210 lb) | 03/25/2016 7:17 AM | | | | | PST | | + + + + + | Height | 157.5 cm (5' 2") | 03/25/2016 7:17 AM | | | | | PST | | + + + + + | Body Mass Index | 38.41 | 03/25/2016 7:17 AM | | | | | PST | [...] + + documented as of this encounter H&P Notes Marissa Rouse MD - 03/25/2016 7:18 AM PSTMs. Casarez's chart was reviewed in detail , and no changes have occurred since the recent note. Also, she was examined by me today an d there are no changes in the heart and lung exam. Ms. Casarez is still appropriate valentino date for left heart catheterization and we will proceed with that today. An explanation of the procedure, including the risks, benifits and alternatives to the procedure were discusse d with the patient and consent has been obtained. The risks, benefits and alternatives to moderate anesthesia were explained to the patient Mallampati 2 ASA 2 Typical airway Lay Howe AR NP - 03/12/2016 2:47 PM PDT PATIENT NAME: Jessie Casarez : 1965: AGE: 51 y.o. PRIMARY CARE: Kyle Richey DO OUTPATIENT FOLLOW UP VISIT Date of Service: 03/12/2016 HISTORY OF PRESENT ILLNESS: Jessie Casarez is a 51 y.o. female with a history of coronary artery disease involving sarah danielle coronary artery of [place] heart without angina pectoris post non-STEMI post [...] arthritis) Pleural effusion Coronary artery disease involving [place] coronary artery of [place] heart without angina pectoris CKD (chronic kidney [...] visit today primarily from [facility]: LIPID Lab Results Component Value Date CHOL [...] I reviewed records from [facility] for office visit on 02/22/2016 which is [...] specified. ASSESSMENT: 1. Coronary artery disease involving [place] coronary artery of [place] heart without angina pectoris/non-STEMI: A. Post non-STEMI. Left heart cath on 11/21/12 showed 95% stenosis of the LCx, 20-30% stenosis of the proximal RCA. Status post PTCA and stents x 2 of the L Cx.Since that time, she saw a drop hammer setter up for couple times and loss of follow-up. B. Echocardiogram on 11/20/15 showed Mild biatrial dilatation. Maria l left ventricular size, wall thickness and motion. Preserved left ventricular systolic func tion. LVEF is 60%. Normal valvular structure. Normal right-sided pressure. Normal IVC with n ormal respiratory collapse. C. She started having a chest pain on 11/17/15 while she was working at the [employer]. She described it as a chest pressure 7/10 that radiated across the chest wa ll and was associated some shortness of breath. No palpitation, dizziness or lightheadedne ss. No sweating. She waited until 11/19/15 when she had recurrent bad chest pain that too k her to the ED of [facility] in [place]. She was found to have blood sugar of almost 1000 and troponin of 0.5. She was transferred to [facility]. D. Left heart cath on 11/21/15 [...] had a less stressful week, according to satay nt. She is trying to walk a bit more. She is in class. She is in a class II of [employer] functional class.There is no [...] on ce weekly by Dr. Castillo in [place]. 5. Acute kidney injury on top of the stage III chronic kidney disease A. She also seen a tapper helper at [facility] but recently los t follow-up. B. [...] this chart may have been created with [employer] voice recognition software. Occasi onal wrong-word or sound-alike substitutions may have occurred due to the inherent mary itations of voice recognition software. Please read the chart carefully and recognize, using context, where these substitutions have occurred. documented in this encounter Procedure Notes Marissa Rouse MD - 03/25/2016 9:48 AM PSTAssociated Order(s): CV CARDIAC PROCEDUREFor matting of this note might be different from the original. CARDIAC CATHETERIZATION and CORONARY ANGIOGRAPHY PATIENT NAME/: Jessie Casarez, (1965) DATE OF PROCEDURE: 03/25/2016 DIRECTOR OF PROGRAM MANAGEMENT: Marissa Rouse MD PROCEDURES PERFORMED: Coronary Angiography Left Heart Catheterization Left Ventriculography Indications: Abnormal stress test DESCRIPTION OF PROCEDURE: Informed consent was obtained from the patient, and a time-out was performed to verify the patient's identification and planned procedure. The patient's right groin was then prepped and draped in the usual sterile fashion, and anesthetized with 10 mL of buffered 1% lidocain e. For arterial access modified Seldinger technique was used to place a 6 Fr. sheath in the right femoral artery. Right heart catheterization was not performed on this patient. Afte r crossing the aortic valve, left ventriculography was performed in the LOPEZ projection. Kim ective coronary angiogram was then performed in several sagittal and oblique projections. JL -4, 3DRC diagnostic catheters were used for this procedure. The patient received a total of 4.5 mg of Versed and 225 mcg of fentanyl intravenously for conscious sedation during the procedure. A total of 80 mL Omnipaque 350 contrast was utilized. The procedure had no imme diate complications. At the conclusion of the procedure, the sheath was removed and hemostasis obtained with an Angio Seal. Distal pulses were present and unchanged. FINDINGS: Hemodynamics: Ao - 128/65 mm Hg with a mean of 92 mm Hg LV - 137/11 mm Hg LVEDP - 17 mm Hg Left ventriculography: The left ventricular size and function were normal. LVEF is calcul ated at 65%. There is no mitral valve regurgitation noted. Left main artery: The left main artery is a medium caliber vessel that bifurcates into the left anterior descending artery and left circumflex artery. Left main artery has is free o f disease. Left anterior descending artery: The left anterior descending artery is a medium caliber v essel that wraps around the apex and gives rise to 2 diagonal branches. The vessel has Mild diffuse disease at the midportion. It gives rise to 2 diagonal branches. Left circumflex artery: The left circumflex artery is a large caliber vessel that is co-do minant. The vessel has Borderline 50-70% stenosis at the midportion of the vessel. It giv es rise to 2 OM branches. Right coronary artery: The right coronary artery is a medium caliber vessel that is co-dom inant. The vessel has minimal luminal irregularity of stent at the midportion of the vessel . It gives rise to a PDA and posterolateral branches. FFR of the mid left circumflex was done by Dr. Bell and revealed a noncritical number of 0 .98. CONCLUSIONS: 1. Noncritical coronary artery disease; 50-70% stenosis at the midportion of the left circu mflex artery, FFR of 0.98. Open stents of the mid RCA. 2. There is a co dominate circulation. 3. Normal LV systolic function with an EF of 65% 4. Systemic blood pressure is normal. 5. There was successful Angio Seal placement to the puncture site in the right femoral chelsi ry. PLAN: 1. Risk factor modification and Medical management. ARY CARE PROVIDER: Kyle Richey DO documented in this encounter Plan of Treatment Not on filedocumented as of this encounter Procedures + +--------+ + + + | Procedure Name | Priori | Date/Time | Associated Diagnosis | Comments | | | ty | | | | + +--------+ + + + | CV RHC | Routin | 03/25/2016 | | Results for this | | | e | 10:13 AM | | procedure are in the | | | | PST | | results section. | + +--------+ + + + | CV LHC | Routin | 03/25/2016 | | Results for this | | | e | 10:13 AM | | procedure are in the | | | | PST | | results section. | + +--------+ + + + | POCT TEST, | STAT | 03/25/2016 | | Results for this | | URINE, QUAL | | 7:50 AM | | procedure are in the | | | | PST | | results section. | + +--------+ + + + | BASIC METABOLIC | STAT | 03/25/2016 | | Results for this | | PANEL | | 7:37 AM | | procedure are in the | | | | PST | | results section. | + +--------+ + + + | POC GLUCOSE | Routin | 03/25/2016 | | Results for this | | | e | 7:28 AM | | procedure are in the | | | | PST | | results section. | + +--------+ + + + documented in this encounter Results CV CARDIAC PROCEDURE (03/25/2016 10:13 AM PST) + + | Specimen | + + | | + + + + + | Narrative | Performed At | + + + | Marissa | | | MD Padma 03/25/2016 10:17 CARDIAC CATHETERIZATION and | | | CORONARY ANGIOGRAPHY PATIENT NAME/: Jessie Casarez, | | | (1965) OF PROCEDURE: | | | 03/25/2016 DIRECTOR OF PROGRAM MANAGEMENT: Marissa Rouse MD PROCEDURES | | | PERFORMED:Coronary AngiographyLeft Heart CatheterizationLeft | | | Ventriculography Indications: Abnormal stress test DESCRIPTION OF | | | PROCEDURE: Informed consent was obtained from the patient, and a | | | time-out was performed to verify the patient's identification and | | | planned procedure. The patient's right groin was then prepped and | | | draped in the usual sterile fashion, and anesthetized with 10 mL of | | | buffered 1% lidocaine. For arterial access modified Seldinger | | | technique was used to place a 6 Fr. sheath in the right femoral | | | artery. Right heart catheterization was not performed on this | | | patient. After crossing the aortic valve, left ventriculography was | | | performed in the LOPEZ projection. Selective coronary angiogram was | | | then performed in several sagittal and oblique projections. JL-4, 3DRC | | | diagnostic catheters were used for this procedure. The patient | | | received a total of 4.5 mg of Versed and 225 mcg of fentanyl | | | intravenously for conscious sedation during the procedure. A total | | | of 80 mL Omnipaque 350 contrast was utilized. The procedure had no | | | immediate complications. At the conclusion of the procedure, the | | | sheath was removed and hemostasis obtained with an Angio Seal. | | | Distal pulses were present and unchanged. FINDINGS: Hemodynamics: | | | Ao - 128/65 mm Hg with a mean of 92 mm HgLV - 137/11 mm HgLVEDP - 17 | | | mm Hg Left ventriculography: The left ventricular size and function | | | were normal. LVEF is calculated at 65%. There is no mitral valve | | | regurgitation noted. Left main artery: The left main artery is a | | | medium caliber vessel that bifurcates into the left anterior | | | descending artery and left circumflex artery. Left main artery has | | | is free of disease. Left anterior descending artery: The left | | | anterior descending artery is a medium caliber vessel that wraps | | | around the apex and gives rise to 2 diagonal branches. The vessel has | | | Mild diffuse disease at the midportion. It gives rise to 2 | | | diagonal branches. Left circumflex artery: The left circumflex | | | artery is a large caliber vessel that is co-dominant. The vessel has | | | Borderline 50-70% stenosis at the midportion of the vessel. It | | | gives rise to 2 OM branches. Right coronary artery: The right | | | coronary artery is a medium caliber vessel that is co-dominant. The | | | vessel has minimal luminal irregularity of stent at the midportion of | | | the vessel. It gives rise to a PDA and posterolateral branches. | | | FFR of the mid left circumflex was done by Dr. Bell and revealed a | | | noncritical number of 0.98.CONCLUSIONS:1. Noncritical coronary artery | | | disease; 50-70% stenosis at the midportion of the left circumflex | | | artery, FFR of 0.98. Open stents of the mid RCA.2. There is a co | | | dominate circulation.3. Normal LV systolic function with an EF of | | | 65%4. Systemic blood pressure is normal.5. There was successful Angio | | | Seal placement to the puncture site in the right femoral artery. | | | PLAN:1. Risk factor modification and Medical management. | | | | | | PRIMARY CARE PROVIDER:Kyle Richey DO | | |Hemodynamics: | | | | | |Ao - 128/65 mm Hg with a mean of 92 mm Hg | | |LV - 137/11 mm Hg | | |LVEDP - 17 mm Hg | | | | | |Left ventriculography: The left ventricular size and function | | |were normal. LVEF is calculated at 65%. There is no mitral | | |valve regurgitation noted. | | | | | |Left main artery: The left main artery is a medium caliber | | |vessel that bifurcates into the left anterior descending artery | | |and left circumflex artery. Left main artery has is free of | | |disease. | | | | | |Left anterior descending artery: The left anterior descending | | |artery is a medium caliber vessel that wraps around the apex and | | |gives rise to 2 diagonal branches. The vessel has Mild diffuse | | |disease at the midportion. It gives rise to 2 diagonal branches. | | | | | |Left circumflex artery: The left circumflex artery is a large | | |caliber vessel that is co-dominant. The vessel has Borderline | | |50-70% stenosis at the midportion of the vessel. It gives rise | | |to 2 OM branches. | | | | | | | | |Right coronary artery: The right coronary artery is a medium | | |caliber vessel that is co-dominant. The vessel has minimal | | |luminal irregularity of stent at the midportion of the vessel. | | |It gives rise to a PDA and posterolateral branches. | | | | | | | | |FFR of the mid left circumflex was done by Dr. Bell and revealed | | |a noncritical number of 0.98. | | |CONCLUSIONS: | | |1. Noncritical coronary artery disease; 50-70% stenosis at the | | |midportion of the left circumflex artery, FFR of 0.98. Open | | |stents of the mid RCA. | | |2. There is a co dominate circulation. | | |3. Normal LV systolic function with an EF of 65% | | |4. Systemic blood pressure is normal. | | |5. There was successful Angio Seal placement to the puncture site | | |in the right femoral artery. | | | | | |PLAN: | | |1. Risk factor modification and Medical management. | | | | | | | | | | | | | | | | | | | | | | | | | | |PRIMARY CARE PROVIDER: | | |Kyle Richey DO | | | | | + + + + + | Procedure Note | + + | Marissa Rouse MD - 03/25/2016 9:48 AM PST Formatting of this note might be | | different from the original.CARDIAC CATHETERIZATION and CORONARY ANGIOGRAPHYPATIENT | | NAME/: Jessie Casarez, (1965) OF | | PROCEDURE: 03/25/2016PRIMARY DIRECTOR FIXED INCOME: Marissa Rouse MD PROCEDURES | | PERFORMED:Coronary AngiographyLeft Heart CatheterizationLeft Ventriculography | | Indications: Abnormal stress testDESCRIPTION OF PROCEDURE:Informed consent was obtained | | from the patient, and a time-out was performed to verify the patient's identification | | and planned procedure. The patient's right groin was then prepped and draped in the | | usual sterile fashion, and anesthetized with 10 mL of buffered 1% lidocaine. For | | arterial access modified Seldinger technique was used to place a 6 Fr. sheath in the | | right femoral artery. Right heart catheterization was not performed on this patient. | | After crossing the aortic valve, left ventriculography was performed in the LOPEZ | | projection. Selective coronary angiogram was then performed in several sagittal and | | oblique projections. JL-4, 3DRC diagnostic catheters were used for this procedure. | | The patient received a total of 4.5 mg of Versed and 225 mcg of fentanyl intravenously | | for conscious sedation during the procedure. A total of 80 mL Omnipaque 350 contrast | | was utilized. The procedure had no immediate complications.At the conclusion of the | | procedure, the sheath was removed and hemostasis obtained with an Angio Seal. Distal | | pulses were present and unchanged. FINDINGS:Hemodynamics:Ao - 128/65 mm Hg with a mean | | of 92 mm HgLV - 137/11 mm HgLVEDP - 17 mm HgLeft ventriculography: The left ventricular | | size and function were normal. LVEF is calculated at 65%. There is no mitral valve | | regurgitation noted.Left main artery: The left main artery is a medium caliber vessel | | that bifurcates into the left anterior descending artery and left circumflex artery. | | Left main artery has is free of disease.Left anterior descending artery: The left | | anterior descending artery is a medium caliber vessel that wraps around the apex and | | gives rise to 2 diagonal branches. The vessel has Mild diffuse disease at the | | midportion. It gives rise to 2 diagonal branches.Left circumflex artery: The left | | circumflex artery is a large caliber vessel that is co-dominant. The vessel has | | Borderline 50-70% stenosis at the midportion of the vessel. It gives rise to 2 OM | | branches.Right coronary artery: The right coronary artery is a medium caliber vessel | | that is co-dominant. The vessel has minimal luminal irregularity of stent at the | | midportion of the vessel. It gives rise to a PDA and posterolateral branches. FFR of | | the mid left circumflex was done by Dr. Bell and revealed a noncritical number of | | 0.98.CONCLUSIONS:1. Noncritical coronary artery disease; 50-70% stenosis at the | | midportion of the left circumflex artery, FFR of 0.98. Open stents of the mid RCA.2. | | There is a co dominate circulation.3. Normal LV systolic function with an EF of 65%4. | | Systemic blood pressure is normal.5. There was successful Angio Seal placement to the | | puncture site in the right femoral artery.PLAN:1. Risk factor modification and Medical | | management. PRIMARY | | CARE PROVIDER:Kyle Richey, DO | | | |Ao - 128/65 mm Hg with a mean of 92 mm Hg | |LV - 137/11 mm Hg | |LVEDP - 17 mm Hg | | | |Left ventriculography: The left ventricular size and function were normal. LVEF is calcul ated at 65%. There is no mitral valve regurgitation noted. | | | |Left main artery: The left main artery is a medium caliber vessel that bifurcates into the left anterior descending artery and left circumflex artery. Left main artery has is free o f disease. | | | |Left anterior descending artery: The left anterior descending artery is a medium caliber v essel that wraps around the apex and gives rise to 2 diagonal branches. The vessel has Mild diffuse disease at the midportion. | | It gives rise to 2 diagonal branches. | | | |Left circumflex artery: The left circumflex artery is a large caliber vessel that is co-do minant. The vessel has Borderline 50-70% stenosis at the midportion of the vessel. It giv es rise to 2 OM branches. | | | | | |Right coronary artery: The right coronary artery is a medium caliber vessel that is co-dom inant. The vessel has minimal luminal irregularity of stent at the midportion of the vessel . It gives rise to a PDA and posterolateral branches. | | | | | |FFR of the mid left circumflex was done by Dr. Bell and revealed a noncritical number of 0 .98. | |CONCLUSIONS: | |1. Noncritical coronary artery disease; 50-70% stenosis at the midportion of the left circu mflex artery, FFR of 0.98. Open stents of the mid RCA. | |2. There is a co dominate circulation. | |3. Normal LV systolic function with an EF of 65% | |4. Systemic blood pressure is normal. | |5. There was successful Angio Seal placement to the puncture site in the right femoral chelsi ry. | | | |PLAN: | |1. Risk factor modification and Medical management. | | | | | | | | | | | | | | | | | |PRIMARY CARE PROVIDER: | |Kyle Richey DO | + + POCT Test, Urine, QUAL (03/25/2016 7:50 AM PST) + + + + + + | Component | Value | Ref Range | Performed | Pathologist | | | | | At | Signature | + + + + + + | | Negative | Negative | | | | Test, | | | | | | Urine, POC | | | | | + + + + + + | Internal QC | Acceptable | | | | + + + + + + | Specific | | 1.010, 1.015, | | | | [place], | | 1.020, 1.025 | | | | POC | | | | | + + + + + + | Lot Number | | | | | + + + + + + | Expiration | | | | | | Date | | | | | + + + + + + + + | Specimen | + + | Urine specimen | | (specimen) | + + Basic Metabolic Panel (03/25/2016 7:37 AM PST) + + + + + + [...] + + + + | Cl | 111 (H) | 98 - 109 mmol/L | [...] Anion Gap | 7 | 3 - 16 mmol/L | [facility] | | | | [facility] | [facility] | | | | | [facility] - | | | | | | LAB[facility]ATORY | | + + + + + + | Glucose | 144 (H) | 70 - 109 mg/dL | [facility] | [facility] | | | | | [facility] | | | | | [facility] - | | | | | | LABORATORY | | + + + + + + | BUN | 29 (H) | 7 - 18 mg/dL | [facility] | | | | | | [facility] | | | | | | [facility] | | | | | | C[facility] - | | | | | | LABORATORY | | + + + + + + | Creatinine | 1.85 (H) | 0.60 - 1.30 | [facility] | | | | | mg/dL | [facility] | | | | | | MEDICAL | | | | | | CENTER - | | | | | | LABORATORY | | + + + + + + | eGFR if not | 29 (L)Comment: | >=60 | [facility] | | | | GLOMERULAR FILTRATION | mL/min/1.73m2 | [facility] | | | [facility] [place] | RATE,ESTIMATED | | MEDICAL | | | | mL/min/1.08v3Nrob than | | CENTER - | | [...] + + + + | Calcium | 8.4 | 8.3 - 10.5 | [facility] | | | | | mg/dL | [facility] | | | | | [facility] | | | | | | [facility] - | | | | | | LABORATORY | | + + + + + + | BUN/Creatin | 15.7 | | [facility] | | | ine [...] + | [facility] | [address] | [place] | [phone] | | [facility] | | [address] | | | - LABORATORY | | | | + + + + + POC Glucose (03/25/2016 7:28 AM PST) + +---------+ + + + | Component | Value | Ref Range | Performed | Pathologist | | | | | At | Signature | + +---------+ + + + | Glucose, | 153 (H) | 70 - 150 mg/dL | [...] [address] | [place] | [phone] | | [facility] | | [address] | | | - LABORATORY | | | | + + + + + documented in this encounter Visit Diagnoses Not on filedocumented in this encounter Administered Medications + +--------+ +------+------+------+ | Medication Order | MAR | Action | Dose | Rate | Site | | | Action | Date | | | | + +--------+ +------+------+------+ | adenosine (diagnostic) | Given | 03/25/20 | | | | | (ADENOSCAN) infusion Administer | | 16 9:59 | | | | | over 4 Minutes, ONCE PRN, | | AM PST | | | | | Starting Fri03/25/16 at 0952, | | | | | | | Intra-op | | | | | | + +--------+ +------+------+------+ +-------+ +---------+---+---+ | Given | 03/25/20 | 53.368 | | | | | 16 9:52 | mg | | | | | AM PST | | | | +-------+ +---------+---+---+ +---+---+ | | | +---+---+ + +-------+ +--------+---+---+ | fentaNYL (PF) injection ONCE | Given | 03/25/20 | 25 mcg | | | | PRN, Starting Fri03/25/16 at | | 16 9:51 | | | | | 0903, Intra-op | | AM PST | | | | + +-------+ +--------+---+---+ +-------+ +--------+---+---+ | Given | 03/25/20 | 25 mcg | | | | | 16 9:32 | | | | | | AM PST | | | | +-------+ +--------+---+---+ | Given | 03/25/20 | 25 mcg | | | | | 16 9:25 | | | | | | AM PST | | | | +-------+ +--------+---+---+ +---+---+ | | | +---+---+ + +-------+ +--------+---+---+ | heparin 1,000 units/mL | Given | 03/25/20 | 4,000 | | | | injection ONCE PRN, Starting Mon | | 16 9:50 | Units | | | | 03/25/16 at 0950, Intra-op | | AM PST | | | | + +-------+ +--------+---+---+ +---+---+ | | | +---+---+ + +-------+ +---------+---+---+ | iohexol (OMNIPAQUE 350) 350 | Given | 03/25/20 | 100 mLs | | | | mg/mL injection ONCE PRN, | | 16 10:04 | | | | | Starting 03/25/16 at 1004, | | AM PST | | | | | Intra-op | | | | | | + +-------+ +---------+---+---+ +---+---+ | | | +---+---+ + +-------+ +-------+---+ + | lidocaine buffered 1% injection | Given | 03/25/20 | 9 mLs | | Surgical | | ONCE PRN, Starting 03/25/16 | | 16 9:18 | | | Site | | at 0904, Intra-op | | AM PST | | | | + +-------+ +-------+---+ + +-------+ +------+---+ + | Given | 03/25/20 | 1 mL | | Surgical | | | 16 9:04 | | | Site | | | AM PST | | | | +-------+ +------+---+ + +---+---+ | | | +---+---+ + +-------+ +--------+---+---+ | midazolam (VERSED) 1 mg/mL | Given | 03/25/20 | 0.5 mg | | | | injection ONCE PRN, Starting Mon | | 16 9:52 | | | | | 03/25/16 at 0903, Intra-op | | AM PST | | | | + +-------+ +--------+---+---+ +-------+ +--------+---+---+ | Given | 03/25/20 | 0.5 mg | | | | | 16 9:32 | | | | | | AM PST | | | | +-------+ +--------+---+---+ | Given | 03/25/20 | 0.5 mg | | | | | 16 9:25 | | | | | | AM PST | | | | +-------+ +--------+---+---+ +---+---+ | | | +---+---+ + +---------+ +--------+-------+ + | sodium chloride 0.9% (NS) | New Bag | 03/25/20 | 1,000 | 125 | Left Arm | | infusion at 125 mL/hr, | | 16 7:40 | mLs | mL/hr | | | Intravenous, CONTINUOUS, Starting | | AM PST | | | | | 03/25/16 at 0730, Infuse | | | | | | | starting 2.5 hours prior to | | | | | | | procedure, and finish liter post | | | | | | | procedure, not to exceed 1 liter. | | | | | | | Ok to end early if needed to | | | | | | | allow patient to go to an | | | | | | | appointment at 1400., Pre-op | | | | | | + +---------+ +--------+-------+ + +---+---+ | | | +---+---+ documented in this encounter
--- OUTSIDE RECORDS SUMMARY | ~2019-11-29 | XMS | Encounter Summary ---
Demographics + + + | Address | [address] | | | [place] [address] | + + + | Home Phone | | + + + | Preferred Language | Unknown | + + + | Marital Status | | + + + | Anglican Affiliation | Unknown | + + + | Race | Unknown | + + + | Ethnic Group | Unknown | + + + Author + + + | Author | [facility] | | | and [place] | + + + | Organization | [facility] | | [...] Team Providers + +------+ + | Care Sheet Metal Shop Supervisor Name | Role | Phone | [...] Description | +--------+---------+ + + + | 02/06/ | Office | [facility] | Marissa Rouse, | Coronary artery | | 2018 | Visit | CARDIOLOGY [address] | disease involving | | | | [place], | [place], | hop[place] coronary | | | | [place] [address] | [place] [address] | artery of hopi | | | | [phone] | [phone] | heart without angina | | | | | | pectoris (Primary | | | | | | Dx); Essential | | | | | | hypertension, benign | +--------+---------+ + + + Social History [...] + + + | Blood Pressure | 118/74 | 02/06/2018 2:57 PM | | | | | PDT | | + + + + + | Pulse | 64 | 02/06/2018 2:57 PM | | | | | PDT | | + + + + + | Temperature | - | - | | + + + + + | Respiratory Rate | 16 | 02/06/2018 2:57 PM | | | | | PDT | | + + + + + | Oxygen Saturation | - | - | | + + + + + | Inhaled Oxygen | - | - | | | Concentration | | | | + + + + + | Weight | 91.6 kg (202 lb) | 02/06/2018 2:57 PM | | | | | PDT | | + + + + + | Height | 157.5 cm (5' 2") | 02/06/2018 2:57 PM | | | | | PDT | | + + + + + | Body Mass Index | 36.95 | 02/06/2018 2:57 PM | | | | | PDT | | + + + + + documented in this encounter Progress Notes Marissa Rouse MD - 02/06/2018 3:30 PM PDTFormatting of this note might be different f rom the original. PATIENT NAME: Jessie Casarez : 1965: AGE: 53 y.o. PRIMARY CARE: Kyle Richey DO OUTPATIENT FOLLOW UP VISIT Date of Service: 02/06/2018 HISTORY OF PRESENT ILLNESS: Jessie Casarez is a 53 y.o. female with a history of coronary artery disease involving sarah danielle coronary artery of hopi heart without angina pectoris post non-STEMI post PTCA and carolyn nt of RCA by Dr. Bell on 11/23/15, type II diabetes, essential hypertension, mixed hyperlipi demia, obesity, stage III chronic kidney disease, noncompliant, suspecting obstructive sleep apnea. Sheis being seen today for follow up coronary artery disease. She was last seen 08/07/2017 at which time patient was to continue with current medical nenita men and follow up in 6 months. Since that time, patient was seen at [facility] o n 01/21/2018 GI bleeding and was given 3 units of red blood cell. She had upper and lower en doscopy done by Dr. Beavers on 02/02/18 and was told that she had peptic ulcer disease. Today, patient is doing well. She has lost 20 lbs since last office visit. Patient is physically in active due to a lack of motivation. There is no chest pain or chest discomfort both at rest and on exertion. Patient denies breathlessness. There is no palpitations, dizziness or light headedness. Patient can sleep on one pillow at night without difficulty breathing. MEDICAL, SURGICAL, AND PERSONAL HISTORY Past Medical, Surgical, Family, and Social History are reviewed in EPIC. CURRENT PROBLEMS Patient Active Problem List Diagnosis Extrapulmonary TB (tuberculosis) RA (rheumatoid arthritis) Pleural effusion Coronary artery disease involving hopi coronary artery of hopi heart without angina pectoris CKD (chronic kidney [...] swelling. Negative for chest pain and palpitations. Neurological: Negative for dizziness and weakness. Lightheaded = No OBJECTIVE: PHYSICAL EXAM BP 118/74 | Pulse 64 | Resp 16 | Ht 1.575 m (5' 2") | Wt 91.6 kg (202 lb) | BMI 36.95 kg/m Physical Exam Constitutional: She is oriented [...] RESULTS reviewed during visit today primarily from [facility]: LIPID Lab Results Component Value Date CHOL [...] 06/06/2017 PLT 258 11/24/2015 PLTEX 259 06/06/2017 Above data and testing is reviewed this visit; testing below is historical data unless othe rwise specified. ASSESSMENT: 1. Coronary artery disease involving hopi coronary artery of hopi heart without angina pectoris/non-STEMI: A. Post non-STEMI. Left heart cath on 11/21/12 showed 95% stenosis of the LCx, 20-30% stenosis of the proximal RCA. Status post PTCA and stents x 2 of the L Cx.Since that time, she saw a acquisitions logistics analyst for couple times and loss of follow-up. B. Echocardiogram on 11/20/15 showed Mild biatrial dilatation. Maria l left ventricular size, wall thickness and motion. Preserved left ventricular systolic func tion. LVEF is 60%. Normal valvular structure. Normal right-sided pressure. Normal IVC with n ormal respiratory collapse. C. She started having a chest pain on 11/17/15 while she was working at the [employer]. She described it as a chest pressure 10 that radiated across the chest wa ll and was associated some shortness of breath. No palpitation, dizziness or lightheadedne ss. No sweating. She waited until 11/19/15 when she had recurrent bad chest pain that too k her to the ED of [facility] in [place]. She was found to have blood sugar of almost 1000 and troponin of 0.5. She was transferred to [facility]. D. Left heart cath on 11/21/15 [...] She is in a class I of [place] [employer] functional class. There is no flu id retention on physical examination. 2. Essential hypertension with goal blood pressure less than 130/80: A. Blood pressure in office today is well controlled. 3. Type II diabetes/noncompliant with medication A.She [...] on ce weekly by Dr. Castillo in [place]. 5.Acute kidney injury on top of the stage III chronic kidney disease. Not addressed today . A. She also seen a magnetic prospecting operator at [facility] but recently los t follow-up. B. Ultrasound retroperitoneal 07/01/2016 shows abnormally echogenic kidneys, compatible with medical renal disease. Kidneys are slightly decreased in size since 2011, no evidence of obstruction. 6. Obesity and Inactivity A. She has lost 20 lbs since last office visit. 7. Hyperlipidemia, mixed: A. She is on atorvastatin 80 mg. 8. Suspecting obstructive sleep apnea A. Patient has 4/8 on stop bag questionnaire. B. She gets a good 6 hours of sleep after leaves for work. 9. Upper GI bleeding A. Patient had upper and lower endoscopy on 02/02/2018. She was told that he has peptic ul cer disease. PLAN: 1. She will continue with current medical regimen. 2. I recommend a therapeutic lifestyle change including walking 30 minutes a day, choosing healthy choices of diet , including DASH diet and weight reduction. 3. Follow-up in one year or sooner with concerns. I, Rosy Landis, am acting as a scribe on behalf of, and in the presence of Marissa fuentes MD. I have reviewed and edited this note. Rosy Landis Rebar Worker 02/06/2018 I, Marissa Rouse MD, personally performed the services described in this documentation, as scribed in my presence and it is both accurate and complete. Rosy Landis Med Ass t 02/06/2018 15:37 Electronically signed by: Marissa Rouse MD [facility] 02/06/2018 Portions of this chart may have been created with [employer] voice recognition software. Occasi onal wrong-word or [...] + + | Coronary artery disease involving hopi coronary artery of hopi heart without | | angina pectoris - Primary | + + | Essential hypertension, benign | + + documented in this encounter
--- OUTSIDE RECORDS SUMMARY | ~2019-11-29 | XMS | Encounter Summary ---
Demographics + + + | Address | [address] | | | [place] [address] | + + + | Home Phone | | + + + | Preferred Language | Unknown | + + + | Marital Status | | + + + | Zoroastrian Affiliation | Unknown | + + + [...] Team Providers + +------+ + | Care Shoe Reconditioner Name | Role | Phone | + [...] | [address] | [address] | | | | | [place], [place] | [address] | | | | | [address] | [place] [address] | | | | | [phone] | [phone] | | | | | | | [...] +--------+ + + + | EXTERNAL LAB: PADMINI | Routin | 08/03/2018 | | Results for this | | | e | 2:43 PM | | procedure are in the | | | | PDT | | results section. | + +--------+ + + + documented in this encounter Results External Lab: CBC (08/03/2018 2:43 PM PDT) + + + + + + | Component | Value | Ref Range | Performed | Pathologist | | | | | At | Signature | + + + + + + | WBC | 14.41 (H) | 3.80 - 11.00 | EXTERNAL | | | | | 10*3/uL | LAB | | + + + + + + | Non- | 5.42 (H) | 3.70 - 5.10 | EXTERNAL | | | Red Blood | | 10*6/uL | LAB | | | Cells | | | | | | Counted | | | | | + + + + + + | Hemoglobin | 11.6 | 11.3 - 15.5 | EXTERNAL | | | | | g/dL | LAB | | + + + + + + | Hematocrit, | 39.4 | 34.0 - 46.0 % | EXTERNAL | | | POC | | | LAB | | + + + + + + | MCV | 72.7 (L) | 80.0 - 100.0 fL | EXTERNAL | | | | | | LAB | | + + + + + + | MCH | 21.4 (L) | 27.0 - 34.0 pg | EXTERNAL | | | | | | LAB | | + + + + + + | MCHC | 29.4 (L) | 32.0 - 35.5 | EXTERNAL | | | | | g/dL | LAB | | + + + + + + | RDW-CV | 73.9 (H) | 37 - 53 fL | EXTERNAL | | | | | | LAB | | + + + + + + | Platelet | 839 ()Comment: RESULT | 150 - 400 | EXTERNAL | | | Count | READ BACK BY: | 10*3/uL | LAB | | | Plasma | AT 1935 ON 08/03/18 TH | | | | + + + + + + | MPV | 8.4 | fL | EXTERNAL | | | | | | LAB | | + + + + + + | Differentia | AUTOMATED | | EXTERNAL | | | l Type | | | LAB | | + + + + + + | % Segmented | 75.44 | % | EXTERNAL | | | | | | LAB | | | Neutrophils | | | | | + + + + + + | % | 13.85 | % | EXTERNAL | | | Lymphocytes | | | LAB | | + + + + + + | % Monocytes | 6.63 | % | EXTERNAL | | | | | | LAB | | + + + + + + | % | 3.55 | % | EXTERNAL | | | Eosinophils | | | LAB | | + + + + + + | % Basophils | 0.53 | % | EXTERNAL | | | | | | LAB | | + + + + + + | Absolute | 10.87 (H) | 1.90 - 7.40 | EXTERNAL | | | Segmented | | 10*3/uL | LAB | | | Neutrophils | | | | | + + + + + + | Absolute | 2.00 | 1.00 - 3.90 | EXTERNAL | | | Lymphocytes | | 10*3/uL | LAB | | + + + + + + | Absolute | 0.96 (H) | 0.00 - 0.80 | EXTERNAL | | | Monocytes | | 10*3/uL | LAB | | + + + + + + | Absolute | 0.51 (H) | 0.00 - 0.50 | EXTERNAL | | | Eosinophils | | 10*3/uL | LAB | | + + + + + + | Absolute | 0.08 | 0.00 - 0.10 | EXTERNAL | | | Basophils | | 10*3/uL | LAB | | + + + + + + | RBC | NORMAL PLT MORPH | | EXTERNAL | | | Morphology | | | LAB | | + + + + + + | RBC | 4+ | | EXTERNAL | | | Morphology | | | LAB | | + + + + + + | RBC | ANISO | | EXTERNAL | | | Morphology | | | LAB | | + + + + + + | RBC | 1+ | | EXTERNAL | | | Morphology | | | LAB | | + + + + + + | RBC | HYPO | | EXTERNAL | | | Morphology | | | LAB | | + + + + + + | RBC | 1+ | | EXTERNAL | | | Morphology | | | LAB | | + + + + + + | RBC | MICRO | | EXTERNAL | | | Morphology | | | LAB | | + + + + + + | Platelet | INCREASED | | EXTERNAL | | | Estimate [...]
--- OUTSIDE RECORDS SUMMARY | ~2019-11-29 | XMS | Encounter Summary ---
Demographics + + + | Address | [address] | | | [place] [address] | + + + | Home Phone | | + + + | Preferred Language | Unknown | + + + | Marital Status | | + + + | Religion Affiliation | Unknown | + + + | Race | Unknown | + + + | Ethnic Group | Unknown | + + + Author + + + | Author | [facility] | | | and [place] | + + + | Organization | [facility] | | | [...] Team Providers + +------+ + | Care Process Control Engineer Name | Role | Phone | + +------+ + | Kyle Richey DO | PCP | | + +------+ + Encounter Details +--------+ + + + + | Date | Type | Department | Care Team | Description | +--------+ + + + + | 07/22/ | Hospital | [facility] | Conversion | | | 2019 | Encounter | [facility] | Transaction, | | | | | OUTPATIENT | Provider Unknown | | | | | PROCEDURES [address] | [phone] | | | | | [address] | | | | | | [place], [place] | | | | | | [address] | | | | | | [phone] | | | +--------+ + + + [...] | | 0 | | | | ([facility] 1.5 | the skin Once a | [...] documented as of this encounter Progress Notes Susan Garcia, Provider Unknown - 07/23/2018 7:45 AM PDTFormatting of this note m ight be different from the original. Nurse Progress Note by Eulalia Amor RN at 07/23/1845 Author: Eulalia Amor RN Service: (none) Author Type: Registered Nurse Filed: 07/23/1841 Date of Service: 07/23/18744 Status: Signed Asphalt Heater Tender: Eulalia Amor RN (Registered Nurse) Pt finished receiving her 4 units of PRBC and was discharged from IVT with 22g IV in her [facility] lower bicept, it was reported that the pt had 10 IV start attempts this visit. This Rn spoke with a Nurse in the Pre-op unit who agreed to leave this IV in for planned surgery at 1000 today. Pt was discharged off the unit ambulatory in stable condition, with her . docume nted in this encounter Plan of Treatment Not on filedocumented as of this encounter Visit Diagnoses Not on filedocumented in this encounter"
--- OUTSIDE RECORDS SUMMARY | ~2019-11-29 | XMS | Encounter Summary ---
Demographics + + + | Address | [address] | | | [place] [address] | + + + | Home Phone [...] Team Providers + +------+ + | Care Taste Tester Name | Role | Phone | + +------+ + | Kyle Richey DO | PCP | | + +------+ + Encounter Details +--------+ + + + + | Date | Type | Department | Care Team | Description | +--------+ + + + + | 09/24/ | Orders Only | [facility] | [facility] | Anemia of chronic | | 2017 | | NEPHROLOGY [address] | M, DO [address] | renal failure, stage | | | | [address] | [address] [place] | 3 (moderate) | | | | [place], [place] | [place], [place] [address] | (Primary Dx); CKD | | | | [address] | [phone] | (chronic kidney | | | | [phone] | | disease), stage 3 | | | | | | (moderate); | | | | | | Rheumatoid arthritis | | | | | | involving multiple | | | | | | sites, unspecified | | | | | | rheumatoid factor | | | | | | presence (HCC); | | | | | | Uncontrolled type 2 | | | | | | diabetes mellitus | | | | | | with hyperglycemia, | | | | | | with long-term | | | | | | current use of | | | | | | insulin (HCC) | +--------+ + + + + Social [...] this encounter Progress Joi Kwan RN - 09/24/2016 2:35 PM PDTInterpath 10/21/16 documented in this encounter Plan of Treatment Not on filedocumented as of this encounter Visit Diagnoses + + | Diagnosis | + + | Anemia of chronic renal failure, stage 3 (moderate) ([facility]) - Primary | + + | CKD (chronic kidney disease), stage 3 (moderate) | + + | Rheumatoid arthritis involving multiple sites, unspecified rheumatoid factor presence | | (HCC) | + + | Uncontrolled type 2 diabetes mellitus with hyperglycemia, with long-term current use | | of insulin (HCC) | + + documented in this encounter"
--- OUTSIDE RECORDS SUMMARY | ~2019-11-29 | XMS | Encounter Summary ---
Demographics + + + | Address | [address] | | | [place] [address] | + + + | Home Phone | | + + + | Preferred Language | Unknown | + + + | Marital Status | | + + + | Hoahaoism Affiliation | Unknown | + + + | Race | Unknown | + + + | Ethnic Group | Unknown | + + + Author + + + | Author | [facility] | | | and [place] | + + + | Organization | [facility] | | | [...] Team Providers + +------+ + | Care Aboriginal Education Worker Coordinator Name | Role | Phone | + +------+ + | Kyle Richey DO | PCP | | + +------+ + Encounter Details +--------+ + + + + | Date | Type | Department | Care Team | Description | +--------+ + + + + | 07/17/ | Abstract | [facility] | Riaz Retana | | | 2016 | | NEPHROLOGY [address] | DO Hali [address] | | | | | [address] | [address] [place] | | | | | [place], [place] | [place] [address] | | | | | [address] | [phone] | | | | | [phone] | | | +--------+ + + + [...] | EXTERNAL LAB: BUN | Routin | 07/16/2016 | | Results for this | | | e | | | procedure are in the | | | | | | results section. | + +--------+ + + + | EXTERNAL LAB: | Routin | 07/16/2016 | | Results for this | | GLUCOSE | e | | | procedure are in the | | | | | | results section. | + +--------+ + + + | EXTERNAL LAB: ELLE | Routin | 07/16/2016 | | Results for this | | | e | | | procedure are in the | | | | | | results section. | + +--------+ + + + | EXTERNAL LAB: CYNDIE | Routin | 07/16/2016 | | Results for this | | | e | | | procedure are in the | | | | | | results section. | + +--------+ + + + | EXTERNAL LAB: | Routin | 07/16/2016 | | Results for this | | ALKALINE PHOSPHATASE | e | | | procedure are in the | | | | | | results section. | + +--------+ + + + | EXTERNAL LAB: | Routin | 07/16/2016 | | Results for this | | BILIRUBIN, TOTAL | e | | | procedure are in the | | | | | | results section. | + +--------+ + + + | EXTERNAL LAB: | Routin | 07/16/2016 | | Results for this | | ALBUMIN | e | | | procedure are in the | | | | | | results section. | + +--------+ + + + | EXTERNAL LAB: | Routin | 07/16/2016 | | Results for this | | PROTEIN, TOTAL | e | | | procedure are in the | | | | | | results section. | + +--------+ + + + | EXTERNAL LAB: | Routin | 07/16/2016 | | Results for this | | PHOSPHORUS | e | | | procedure are in the | | | | | | results section. | + +--------+ + + + | EXTERNAL LAB: | Routin | 07/16/2016 | | Results for this | | CALCIUM | e | | | procedure are in the | | | | | | results section. | + +--------+ + + + | EXTERNAL LAB: CARBON | Routin | 07/16/2016 | | Results for this | | DIOXIDE | e | | | procedure are in the | | | | | | results section. | + +--------+ + + + | EXTERNAL LAB: | Routin | 07/16/2016 | | Results for this | | CHLORIDE | e | | | procedure are in the | | | | | | results section. | + +--------+ + + + | EXTERNAL LAB: | Routin | 07/16/2016 | | Results for this | | POTASSIUM | e | | | procedure are in the | | | | | | results section. | + +--------+ + + + | EXTERNAL LAB: SODIUM | Routin | 07/16/2016 | | Results for this | | | e | | | procedure are in the | | | | | | results section. | + +--------+ + + + | EXTERNAL LAB: | Routin | 07/16/2016 | | Results for this | | PROTEIN/CREATININE | e | | | procedure are in the | | RATIO | | | | results section. | + +--------+ + + + | EXTERNAL LAB: CBC | Routin | 07/16/2016 | | Results for this | | | e | | | procedure are in the | | | | | | results section. | + +--------+ + + + | EXTERNAL LAB: PADMINI | Routin | 07/16/2016 | | Results for this | | | e | | | procedure are in the | | | | | | results section. | + +--------+ + + + | EXTERNAL LAB: LINDA | Routin | 07/16/2016 | | Results for this | | | e | | | procedure are in the | | | | | | results section. | + +--------+ + + + | EXTERNAL LAB: | Routin | 07/16/2016 | | Results for this | | CREATININE | e | | | procedure are in the | | | | | | results section. | + +--------+ + + + documented in this encounter Results External Lab: Protein/Creatinine Ratio (07/16/2016) + + + + + + | Component | Value | Ref Range | Performed | Pathologist | | | | | At | Signature | + + + + + + | Protein/Cre | 1.84 (A) | 0.0 - 0.2 mg/mg | | | | atinine | | | | | | Ratio, | | | | | | External | | | | | + + + + + + | PTH Intact, | 146 (A) | 15 - 65 | | | | External | | | | | + + + + + + + + | Specimen | + + | | + + External Lab: CBC (07/16/2016) + + + + + + | Component | Value | Ref Range | Performed | Pathologist | | | | | At | Signature | + + + + + + | HGB, | 7.8 (A) | 12 - 16 | EXTERNAL | | | External | | | LAB | | + + + + + + | HCT, | 29.2 (A) | 35 - 45 | EXTERNAL | | | External | | | LAB | | + + + + + + | PLT, | 248 | 140 - 440 | EXTERNAL | | | External | | | LAB | | + + + + + + | MCV, | 62 (A) | 81 - 99 | EXTERNAL | | | External | | | LAB | | + + + + + + | RDW, | 22.4 (A) | 10.5 - 15 | EXTERNAL [...] + +---------+ + + External Lab: MARIAJOSE (07/16/2016) + +--------+ + + + | Component | Value | Ref Range | Performed | Pathologist | | | | | At | Signature | + +--------+ + + + | BUN, | 25 (A) | 6 - 23 | EXTERNAL [...] + +---------+ + + External Lab: Glucose (07/16/2016) + +---------+ + + + | Component | Value | Ref Range | Performed | Pathologist | | | | | At | Signature | + +---------+ + + + | Glucose, | 116 (A) | 70 - 100 | EXTERNAL [...] + +---------+ + + External Lab: ALT (07/16/2016) + +-------+ + + + | Component | Value | Ref Range | Performed | Pathologist | | | | | At | Signature | + +-------+ + + + | ALT, | 19 | 7 - 52 | EXTERNAL | [...] + +---------+ + + External Lab: AST (07/16/2016) + +-------+ + + + | Component | Value | Ref Range | Performed | Pathologist | | | | | At | Signature | + +-------+ + + + | AST, | 22 | 13 - 39 | EXTERNAL | [...] +---------+ + + External Lab: Alkaline Phosphatase (07/16/2016) + +-------+ + + + | Component | Value | Ref Range | Performed | Pathologist | | | | | At | Signature | + +-------+ + + + | ALP, | 67 | 31 - 130 | EXTERNAL | [...] +---------+ + + External Lab: Bilirubin, Total (07/16/2016) + +-------+ + + + | Component | Value | Ref Range | Performed | Pathologist | | | | | At | Signature | + +-------+ + + + | Bilirubin, | 0.5 | 0 - 1.2 | EXTERNAL | [...] + +---------+ + + External Lab: Albumin (07/16/2016) + +-------+ + + + | Component | Value | Ref Range | Performed | Pathologist | | | | | At | Signature | + +-------+ + + + | Albumin, | 4.1 | 3.5 - 5 | EXTERNAL | [...] +---------+ + + External Lab: Protein, Total (07/16/2016) + +-------+ + + + | Component [...] + +---------+ + + External Lab: Phosphorus (07/16/2016) + +-------+ + + + | Component | Value | Ref Range | Performed | Pathologist | | | | | At | Signature | + +-------+ + + + | Phosphorus, | 3.5 | 2.5 - 5 | EXTERNAL | [...] + +---------+ + + External Lab: Calcium (07/16/2016) + +-------+ + + + | Component [...] +---------+ + + External Lab: Carbon Dioxide (07/16/2016) + +--------+ + + + | Component | Value | Ref Range | Performed | Pathologist | | | | | At | Signature | + +--------+ + + + | Carbon | 15 (A) | 19 - 31 | EXTERNAL [...] + +---------+ + + External Lab: Chloride (07/16/2016) + +-------+ + + + | Component [...] + +---------+ + + External Lab: Potassium (07/16/2016) + +-------+ + + + | Component | Value | Ref Range | Performed | Pathologist | | | | | At | Signature | + +-------+ + + + | Potassium, | 4.1 | 3.6 - 5.1 | EXTERNAL | [...] + +---------+ + + External Lab: Sodium (07/16/2016) + +-------+ + + + | Component | Value | Ref Range | Performed | Pathologist | | | | | At | Signature | + +-------+ + + + | Sodium, | 135 | 132 - 143 | EXTERNAL | [...] + +---------+ + + External Lab: CBC (07/16/2016) + +--------+ + + + | Component | Value | Ref Range | Performed | Pathologist | | | | | At | Signature | + +--------+ + + + | WBC, | 17 (A) | 4.5 - 11 | EXTERNAL | | | External | | | LAB | | + +--------+ + + + | RBC, | 4.73 | 3.8 - 5.1 | EXTERNAL | [...] + +---------+ + + External Lab: eGFR (07/16/2016) + +-------+ + + + | Component [...] + +---------+ + + External Lab: Creatinine (07/16/2016) + + + + + + | Component | Value | Ref Range | Performed | Pathologist | | | | | At | Signature | + + + + + + | Creatinine, | 1.53 (A) | 0.7 - 1.33 | EXTERNAL [...]
--- OUTSIDE RECORDS SUMMARY | ~2019-11-29 | XMS | Encounter Summary ---
Demographics + + + | Address | [address] | | | [place] [address] | + + + | Home Phone | | + + + | Preferred Language | Unknown | + + + | Marital Status | | + + + | Nondenominational Affiliation | Unknown | + + + [...] Team Providers + +------+ + | Care Refrigeration Houseman Name | Role | Phone | + +------+ + | Kyle Richey DO | PCP | | + +------+ + Reason for Visit +--------+--------+ + | Reason | Onset | Comments | | | Date | | +--------+--------+ + | Other | 06/12/ | concern for patient | | | 2016 | | +--------+--------+ + Encounter Details +--------+ + + + + | Date | Type | Department | Care Team | Description | +--------+ + + + + | 06/12/ | Telephone | [facility] [place] | Gabi, | Other (concern for | | 2016 | | CARDIOLOGY [address] | LUIZ Chun [address] | patient) | | | | [place], | [place], | | | | | [place] [address] | [place] [address] | | | | | [phone] | [phone] | | | | | | | [...] Telephone Encounter - Evangelina Interiano RN - 06/17/2016 3:37 PM PSTDiana reports that she stopped the Metformin about 1&1/2 months ago. Lynn Birmingham NP took her off. Layla notifi ed per message on voicemail. ...........................................Evangelina Interiano RN on 06/17/16 at 15:38 elephone Encounter - Evangelina Interiano RN - 06/17/2016 9:06 AM PSTLeft message at home number for patient to return my call. ...........................................Evangelina Interiano RN on 06/17/16 a t 9:06 elephone Diana lundberg - Lay Ashley ARNP - 06/17/2016 8:02 AM PSTDigabriellae, This patient was discharged from the hospital back in November and she was on Metformin at that time. I gave her a refill in the meantime she was going to get in and see endocrinology or her PCP. So, Can we please discontinue then Metformin? (can we call pharmacy and patient a s well). Can we refer patient back to her PCP again urgent visit for diabetes control? Thanks! Martitaectronically signed by LUIZ Bates at 06/17/2016 8:19 AM PSTTelephone Encounter - Evangelina Interiano RN - 06/13/2016 8:33 AM PSTSutania called yesterday and left a message on my voicemail. She is concerned about this patient. She notes that Lay has ref illed her Metformin. Layla feels that Metformin is not appropriate for this patient due to h er kidney function. She quoted results of Creatinine = 1.85 and GFR =29. These are noted o n her lab in EPIC from 03/25/16. I will consult with Lay and then let her know ......... ..................................Evangelina Interiano RN on 06/13/16 at 8:35 documented in this encounter Plan of Treatment Not on filedocumented as of this encounter Visit Diagnoses Not on filedocumented in this encounter"
--- OUTSIDE RECORDS SUMMARY | ~2019-11-29 | XMS | Encounter Summary ---
Demographics + + + | Address | [address] | | | [place] [address] | + + + | Home Phone [...] | ECON | Unknown | | | [place] | | | | + + +---------+ + Care Team Providers + +------+ + | Care Wash Operator Name | Role | Phone | + +------+ + PCP | Unavailable | + +------+ + Encounter Details +--------+ + + + + | Date | Type | Department | Care Team | Description | +--------+ + + + + | 02/24/ | [facility] | [facility] | [place], | Cough | | 2015 | Encounter | MED CTR PULMONARY | Megha Mendoza MD | | | | | FUNCTION [address] | | | | | | [place], | | | | | | [place] [address] | | | | | | [phone] | | | +--------+ + + + [...] + + documented as of this encounter Procedure Notes Megha Díaz MD - 03/12/2015 5:12 PM PSTAssociated Order(s): PFT PULMONARY FUNCT ION TESTING ORDERSProcedure(s): PFT PULMONARY FUNCTION TESTING ORDERSPre-Procedure Diagnose( s): Cough PULMONARY FUNCTION TESTING METHOD: Spirometry was obtained pre administration of inhaled bronchodilator only. Lung vol umes were obtained by body plethysmography. Diffusion capacity was obtained by single breath method and was not corrected for a measured hemoglobin. ATS standards were met. SPIROMETRY: FVC was mildly reduced at 2.00 L or 67% of predicted. FEV1 was mildly reduced a t 1.71 L or 69% of predicted. FEV1/FVC ratio was normal at 86%. LUNG VOLUMES: Total lung capacity was normal at 4.01 L or 85% of predicted. Residual volume was normal at 2.00 L or 117% of predicted. RV/TLC ratio was elevated at 50% or 139 % of pre dicted. DIFFUSION CAPACITY: Diffusion capacity was moderately reduced at 13.9 mL/mmHg per minute or 57% of predicted and was not corrected for a measured hemoglobin. IMPRESSION: Spirometry is consistent with mild restrictive physiology. Lung volume testing is consistent with obstructive physiology. Diffusion capacity is moderately reduced and is n ot corrected for measured hemoglobin. Electronically signed by: Megha Díaz MD 03/12/2015 17:[address] [facility] CC: Kyle Richey DO documented in t his encounter Plan of Treatment Not on filedocumented as of this encounter Procedures + +--------+ + + + | Procedure Name | Priori | Date/Time | Associated Diagnosis | Comments | | | ty | | | | + +--------+ + + + | PFT PULMONARY | FRED | 03/12/2015 | Cough | Results for this | | FUNCTION TESTING | | 5:15 PM | | procedure are in the | | ORDERS | | PST | | results section. | + +--------+ + + + | PFT PULMONARY | [facility] | 03/12/2015 | Cough | Results for this | | FUNCTION TESTING | | 5:15 PM | | procedure are in the | | ORDERS | | PST | | results section. | + +--------+ + + + | PFT PULMONARY | [facility] | 03/12/2015 | Cough | Results for this | | FUNCTION TESTING | | 5:15 PM | | procedure are in the | | ORDERS | | PST | | results section. | + +--------+ + + + | PFT PULMONARY | [facility] | 03/12/2015 | Cough | Results for this | | FUNCTION TESTING | | 5:15 PM | | procedure are in the | | ORDERS | | PST | | results section. | + +--------+ + + + | DIAGNOSTIC REPORT - | | 02/24/2015 | | | | EXTERNAL SCAN | | 12:00 AM | | | | | | PDT | | | + +--------+ + + + documented in this encounter Results PFT PULMONARY FUNCTION TESTING ORDERS Full PFT (Brandon w/BD, lung volumes, diffusion)?: Yes (03/12/2015 5:15 [...] Díaz MD 03/12/2015 17:12 | | | [facility] CC: Kyle Richey, | | | DO | | + + + documented in this encounter Visit Diagnoses + + | Diagnosis | + + | Cough | + + documented in this encounter"
--- OUTSIDE RECORDS SUMMARY | ~2019-11-29 | XMS | Encounter Summary ---
Demographics + + + | Address | [address] | | | [place] [address] | + + + | Home Phone | | + + + | Preferred Language | Unknown | + + + | Marital Status | | + + + | Latter-Day Affiliation | Unknown | + + + | Race | Unknown | + + + | Ethnic Group | Unknown | + + + Author + + + | Author | [facility] | | | and [place] | + + + | Organization | [facility] | | | [...] Team Providers + +------+ + | Care Beef Cattle Farmer Name | Role | Phone | + +------+ + PCP | Unavailable | + +------+ + Encounter Details +--------+ + + + + | Date | Type | Department | Care Team | Description | +--------+ + + + + | 02/22/ | Abstract | [facility] [place] | [place], | | | 2014 | | PULMONARY [address] | Megha Mendoza MD | | | | | [place], | | | | | | [place] [address] | | | | | | [phone] | | | +--------+ + + + [...]
--- OUTSIDE RECORDS SUMMARY | ~2019-11-29 | XMS | Encounter Summary ---
Demographics + + + | Address | [address] | | | [place] [address] | + + + | Home Phone | | + + + | Preferred Language | Unknown | + + + | Marital Status | | + + + | Anabaptist Affiliation | Unknown | + + + | Race | Unknown | + + + | Ethnic Group | Unknown | + + + Author + + + | Author | [facility] | | | and [place] | + + + | Organization | [facility] | | [...] Team Providers + +------+ + | Care Director Of Recreation Therapy Name | Role | Phone | + +------+ + | Kyle Richey DO | PCP | | + +------+ + Reason for Visit + +--------+ + | Reason | Onset | Comments | | | Date | | + +--------+ + | Diabetes Education | 02/25/ | | | | 2016 | | + +--------+ + Encounter Details +--------+ + + + + | Date | Type | Department | Care Team | Description | +--------+ + + + + | 02/25/ | Telephone | [facility] | Mariela Landis RN | Diabetes Education | | 2016 | | MED CTR DIABETES | | | | | | EDUCATION [address] | | | | | | [place], | | | | | | [place] [address] | | | | | | [phone] | | | +--------+ + + + [...] Telephone Encounter - Mariela Landis RN - 02/26/2016 12:00 PM PDTCalled and left a voicema il for her to call me back so that we can schedule an appointment. documented in this encounter Plan of Treatment Not on filedocumented as of this encounter Visit Diagnoses Not on filedocumented in this encounter"
--- OUTSIDE RECORDS SUMMARY | ~2019-11-29 | XMS | Encounter Summary ---
Demographics + + + | Address | [address] | | | [place] [address] | + + + | Home Phone | | + + + | Preferred Language | Unknown | + + + | Marital Status | | + + + | Congregational Affiliation | Unknown | + + + | Race | Unknown | + + + | Ethnic Group | Unknown | + + + Author + + + | Author | [facility] | | | and [place] | + + + | Organization | [facility] | | [...] Team Providers + +------+ + | Care Technical Project Lead Name | Role | Phone | + +------+ + | Kyle Richey DO | PCP | | + +------+ + Encounter Details +--------+ + + + + | Date | Type | Department | Care Team | Description | +--------+ + + + + | 07/22/ | Hospital | [facility] | Conversion | | | 2019 | Encounter | [facility] | Transaction, | | | | | CLINIC [address] | Provider Unknown | | | | | [address] [place] | [phone] | | | | | [address] | | | | | | [phone] | Madhu Jo MD | | | | | | [address] | | | | | | [address] | | | | | | [place] | | | | | | [address] | | | | | | [phone] | | | | | | | [...] documented as of this encounter Procedure Notes Conversion Transaction, Provider Unknown - 07/22/2018 2:40 PM PDTFormatting of this note m ight be different from the original. Pre-Procedure Instructions by Indu Barclay RN at 07/22/181439 Author: Indu Barclay RN Service: (none) Author Type: Registered Nurse Filed: 07/22/181442 Date of Service: 07/22/181439 Status: Signed Lung Gun Operator: Indu Barclay RN (Registered Nurse) Pt has critical lab of Hgb 6.6; Hct 23.9. Spoke with Alie at Dr. Ceron's office; they will make decision on what to do from here a nd will contact pt with all instructions; Dr. Nicolas, anesthesia, also notified. docume nted in this encounter Plan of Treatment Not on filedocumented as of this encounter Procedures + +--------+ + + + | Procedure Name | Priori | Date/Time | Associated Diagnosis | Comments | | | ty | | | | + +--------+ + + + | EXTERNAL LAB: CBC | Routin | 07/22/2018 | | Results for this | | | e | 1:15 PM | | procedure are in the | | | | PDT | | results section. | + +--------+ + + + | PATHOLOGY CONSULT | Routin | 07/22/2018 | | Results for this | | REQUEST | e | 1:15 PM | | procedure are in the | | | | PDT | | results section. | + +--------+ + + + | TYPE AND SCREEN | Routin | 07/22/2018 | | Results for this | | | e | 1:15 PM | | procedure are in the | | | | PDT | | results section. | + +--------+ + + + | COMPREHENSIVE | Routin | 07/22/2018 | | Results for this | | METABOLIC PANEL | e | 1:15 PM | | procedure are in the | | | | PDT | | results section. | + +--------+ + + + documented in this encounter Results Type and Screen (07/22/2018 1:15 PM PDT) + + + + + + | Component | Value | Ref Range | Performed | Pathologist | | | | | At | Signature | + + + + + + | ABO Rh | A POSITIVE | | EXTERNAL | | | | | | LAB | | + + + + + + | Antibody | NEGATIVE | | EXTERNAL | | | Screen | | | LAB | | + + + + + + | BB BAND | [id number] | | EXTERNAL | | | | | | LAB | | + + + + + + | UNIT NUMBER | [id number] | | EXTERNAL | | | | | | LAB | | + + + + + + | Product | LEUKODEPLETED PC | | EXTERNAL | | | Code | | | LAB | | + + + + + + | Unit | 00 | | EXTERNAL | | | Division | | | LAB | | + + + + + + | Unit Status | ISSUED,FINAL | | EXTERNAL | | | | | | LAB | | + + + + + + | Transfusion | OK TO TRANSFUSE | | EXTERNAL | | | Status | | | LAB | | + + + + + + | CROSSMATCH | COMPATIBLE | | EXTERNAL | | | RESULT | | | LAB | | + + + + + + | UNIT NUMBER | [id number] | | EXTERNAL | | | | | | LAB | | + + + + + + | Product | LEUKODEPLETED PC | | EXTERNAL | | | Code | | | LAB | | + + + + + + | Unit | 00 | | EXTERNAL | | | Division | | | LAB | | + + + + + + | Unit Status | ISSUED,FINAL | | EXTERNAL | | | | | | LAB | | + + + + + + | Transfusion | OK TO TRANSFUSE | | EXTERNAL | | | Status | | | LAB | | + + + + + + | CROSSMATCH | COMPATIBLE | | EXTERNAL | | | RESULT | | | LAB | | + + + + + + | UNIT NUMBER | [id number] | | EXTERNAL | | | | | | LAB | | + + + + + + | Product | LEUKODEPLETED PC | | EXTERNAL | | | Code | | | LAB | | + + + + + + | Unit | 00 | | EXTERNAL | | | Division | | | LAB | | + + + + + + | Unit Status | ISSUED,FINAL | | EXTERNAL | | | | | | LAB | | + + + + + + | Transfusion | OK TO TRANSFUSE | | EXTERNAL | | | Status | | | LAB | | + + + + + + | CROSSMATCH | COMPATIBLETesting | | EXTERNAL | | | RESULT | performed at [facility];[address] | | LAB | | | | [address];[place] | | | | | | [address] | | | | + + + + + + | UNIT NUMBER | [id number] | | EXTERNAL | | | | | | LAB | | + + + + + + | Product | LEUKODEPLETED PC | | EXTERNAL | | | Code | | | LAB | | + + + + + + | Unit | 00 | | EXTERNAL | | | Division | | | LAB | | + + + + + + | Unit Status | ISSUED,FINAL | | EXTERNAL | | | | | | LAB | | + + + + + + | Transfusion | OK TO TRANSFUSE | | EXTERNAL | | | Status | | | LAB | | + + + + + + | CROSSMATCH | COMPATIBLE | | EXTERNAL | | | RESULT | | | LAB | | + + + + + + + + | Specimen | + + | Blood specimen | | (specimen) | + + + +---------+ + + | Performing | Address | City/State/Zipcode | Phone Number | | Organization | | | | + +---------+ + + | EXTERNAL LAB | | | | + +---------+ + + PATHOLOGY CONSULT REQUEST (07/22/2018 1:15 PM PDT) + + + + + + | Component | Value | Ref Range | Performed | Pathologist | | | | | At | Signature | + + + + + + | Pathologist | Comment: Review of CBC | | EXTERNAL | | | Review 1 | collected 07/22/18. The | | LAB | | | | presence of anemia and | | | | | | mild neutrophilia are | | | | | | confirmed. The | | | | | | neutrophils show no | | | | | | toxic changes. The | | | | | | anemia is hypochromic | | | | | | and microcytic, | | | | | | consistent with iron | | | | | | deficiency. There are no | | | | | | schistocytes or other | | | | | | evidence of peripheral | | | | | | destruction. There is a | | | | | | moderate reticulocyte | | | | | | response, given the | | | | | | degree of anemia. The | | | | | | features are consistent | | | | | | with the patient's | | | | | | history of chronic blood | | | | | | loss. Dr. Sahu | | | | | | 07/23/18 BES:rds Testing | | | | | | performed at [facility];[address] | | | | | | [facility];[place], [place] | | | | | | [address] | | | | + + + + + + + + | Specimen | + + | | + + + +---------+ + + | Performing | Address | City/State/Zipcode | Phone Number | | Organization | | | | + +---------+ + + | EXTERNAL LAB | | | | + +---------+ + + External Lab: CBC (07/22/2018 1:15 PM PDT) + + + + + + | Component | Value | Ref Range | Performed | Pathologist | | | | | At | Signature | + + + + + + | WBC | 13.77 (H) | 3.80 - 11.00 | EXTERNAL | | | | | K/uL | LAB | | + + + + + + | Non- | 3.88 | 3.70 - 5.10 | EXTERNAL | | | Red Blood | | M/uL | LAB | | | Cells | | | | | | Counted | | | | | + + + + + + | Hemoglobin | 6.6 (LL)Comment: RESULT | 11.3 - 15.5 | EXTERNAL | | | | READ BACK BY:RAF | g/dL | LAB | | | | L/KRMCPAS AT 1405 BY MB | | | | | |RAF L/KRMCPAS AT 1405 BY MB | | | | | | | | | | + + + + + + | Hematocrit, | 23.9 (L) | 34.0 - 46.0 % | EXTERNAL | | | POC | | | LAB | | + + + + + + | MCV | 61.7 (L) | 80.0 - 100.0 fl | EXTERNAL | | | | | | LAB | | + + + + + + | MCH | 17.0 (L) | 27.0 - 34.0 pg | EXTERNAL | | | | | | LAB | | + + + + + + | MCHC | 27.5 (L) | 32.0 - 35.5 | EXTERNAL | | | | | g/dL | LAB | | + + + + + + | RDW-CV | 47.7 | 37 - 53 fl | EXTERNAL | | | | | | LAB | | + + + + + + | Platelet | 190 | 150 - 400 K/uL | EXTERNAL | | | Count | | | LAB | | | Plasma | | | | | + + + + + + | MPV | 9.7 | fl | EXTERNAL | | | | | | LAB | | + + + + + + | Differentia | MANUAL | | EXTERNAL | | | l Type | | | LAB | | + + + + + + | Segmented | 76 | % | EXTERNAL | | | Neutrophils | | | LAB | | | Manual | | | | | + + + + + + | % Bands | 1 | % | EXTERNAL | | | | | | LAB | | + + + + + + | Lymphocytes | 16 | % | EXTERNAL | | | Manual | | | LAB | | + + + + + + | Monocytes | 6 | % | EXTERNAL | | | Manual | | | LAB | | + + + + + + | Eosinophils | 1 | % | EXTERNAL | | | Manual | | | LAB | | + + + + + + | Absolute | 10.46 (H) | 1.90 - 7.40 | EXTERNAL | | | Neutrophils | | K/uL | LAB | | + + + + + + | Bands | 0.14 | 0.00 - 0.20 | EXTERNAL | | | Manual | | K/uL | LAB | | + + + + + + | Absolute | 2.20 | 1.00 - 3.90 | EXTERNAL | | | Lymphocytes | | K/uL | LAB | | + + + + + + | Absolute | 0.83 (H) | 0.00 - 0.80 | EXTERNAL | | | Monocytes | | K/uL | LAB | | + + + + + + | Absolute | 0.14 | 0.00 - 0.50 | EXTERNAL | | | Eosinophils | | K/uL | LAB | | + + + + + + | RBC | 3+ | | EXTERNAL | | | Morphology | Comment: | | LAB | | | | ANISO | | | | | | 3+ | | | | | | HYPO | | | | | | 3+ | | | | | | MICRO | | | | | | 1+ | | | | | | POLY | | | | | | | | | | + + + + + + | Differentia | FEW GIANT PLATELETS | | EXTERNAL | | | l Comments | SEENComment: Testing | | LAB | | | | performed at [facility] | | | | | | [address];[place] | | | | | | [address] | | | | + + + [...] + +---------+ + + Comprehensive Metabolic Panel (07/22/2018 1:15 PM PDT) + + + + + + | Component | Value | Ref Range | Performed | Pathologist | | | | | At | Signature | + + + + + + | Na | 139 | 135 - 145 | EXTERNAL | | | | | mmol/L | LAB | | + + + + + + | K | 3.6 | 3.5 - 4.9 | EXTERNAL | | | | | mmol/L | LAB | | + + + + + + | Cl | 110 (H) | 99 - 109 mmol/L | EXTERNAL | | | | | | LAB | | + + + + + + | CO2 | 20 (L) | 23 - 32 mmol/L | EXTERNAL | | | | | | LAB | | + + + + + + | Anion Gap | 13 | 5 - 20 mmol/L | EXTERNAL | | | | | | LAB | | + + + + + + | Glucose, | 203 (H) | 65 - 99 mg/dL | EXTERNAL | | | Fasting | | | LAB | | + + + + + + | BUN | 25 | 8 - 25 mg/dL | EXTERNAL | | | | | | LAB | | + + + + + + | Creatinine | 1.70 (H) | 0.50 - 1.00 | EXTERNAL | | | | | mg/dL | LAB | | + + + + + + | BUN/Creatin | 15 | | EXTERNAL | | | ine Ratio | | | LAB | | + + + + + + | Calcium | 8.3 (L) | 8.5 - 10.5 | EXTERNAL | | | | | mg/dL | LAB | | + + + + + + | Protein, | 7.0 | 6.3 - 8.2 g/dL | EXTERNAL | | | Total | | | LAB | | + + + + + + | Albumin | 4.0 | 3.6 - 5.0 g/dL | EXTERNAL | | | | | | LAB | | + + + + + + | Globulin | 3.0 | 1.3 - 4.9 g/dL | EXTERNAL | | | | | | LAB | | + + + + + + | A/G Ratio | 1.3 | 1.0 - 2.4 | EXTERNAL | | | | | | LAB | | + + + + + + | Bilirubin | 0.4 | 0.1 - 1.5 mg/dL | EXTERNAL | | | Total | | | LAB | | + + + + + + | ALP, | 71 | 35 - 115 U/L | EXTERNAL | | | External | | | LAB | | + + + + + + | AST | 13 | 10 - 45 U/L | EXTERNAL | | | | | | LAB | | + + + + + + | ALT | <7 (L) | 10 - 65 U/L | EXTERNAL | | | | | | LAB | | + + + + + + | Estimated | 31 (L)Comment: GFR <60: | mL/min/1.73m2 | EXTERNAL [...] | | | | | performed at [facility] | | | | | | [facility];[place], [place] | | | | | | [address] | | | | + + + [...]
--- OUTSIDE RECORDS SUMMARY | ~2019-11-29 | XMS | Encounter Summary ---
Demographics + + + | Address | [address] | | | [place] [address] | + + + | Home Phone [...] | ECON | Unknown | | | [place] | | | | + + +---------+ + Care Team Providers + +------+ + | Care Improvement Auditor Name | Role | Phone | + +------+ + | Kyle Richey DO | PCP | | + +------+ + Reason for Visit +--------+ + | Reason | Comments | +--------+ + | Other | RM -8 patient is here with a sore to the labia for the last 4 | | | days | +--------+ + Encounter Details +--------+---------+ + + + | Date | Type | Department | Care Team | Description | +--------+---------+ + + + | 11/07/ | Office | [facility] | Dimitris Flores, DO | Abscess of skin of | | 2018 | Visit | CARE [address] | [address] | abdomen (Primary | | | | [place] | Dx); Cellulitis of | | | | [address] | [address] | other specified site | | | | [phone] | | | +--------+---------+ + + + [...] + + + | Blood Pressure | 173/74 | 11/07/2018 2:21 PM | | | | | PDT | | + + + + + | Pulse | 74 | 11/07/2018 2:21 PM | | | | | PDT | | + + + + + | Temperature | 36.7 C (98.1 F) | 11/07/2018 2:21 PM | | | | | PDT | | + + + + + | Respiratory Rate | 12 | 11/07/2018 2:21 PM | | | | | PDT | | + + + + + | Oxygen Saturation | 99% | 11/07/2018 2:21 PM | | | | | PDT | | + + + + + | Inhaled Oxygen | - | - | | | Concentration | | | | + + + + + | Weight | 83 kg (182 lb 15.7 | 11/07/2018 2:21 PM | | | | oz) | PDT | | + + + + + | Height | 157.5 cm (5' 2") | 11/07/2018 2:21 PM | | | | | PDT | | + + + + + | Body Mass Index | 33.47 | 11/07/2018 2:21 PM | | | | | PDT | | + + + + + documented in this encounter Patient Instructions Patient Instructions Dimitris Flores, - 11/07/2018 1:25 PM PDT Abscess (Incision & Drainage) An abscess is sometimes called a boil. It happens when bacteria get trapped under the skin and start to grow. Pus forms inside the abscess as the body responds to the bacteria. An abs cess can happen with an insect bite, ingrown hair, blocked oil gland, pimple, cyst, or punct ure wound. Your healthcare provider has drained the pus from your abscess. If the abscess pocket was l arge, your healthcare provider may have put in gauze packing. Your provider will need to rem ove it on your next visit. Carlos subramanian may also replace it at that time. You may not need ant ibiotics to treat a simple abscess, unless the infection is spreading into the skin around t he wound (cellulitis). The woundwill take about 1 to 2 weeks to heal, depending on the size of the abscess. Heal thy tissue will grow from the bottom and sides of the opening until it seals over. Home care These tips can help your wound heal: The wound may drain for the first 2 days. Cover the wound with a clean dry dressing. Cate nge thedressing if it becomes soaked with blood or pus. If a gauze packing was placed inside the abscess pocket, you may be told to remove it yo urself. You may do this in the shower. Once the packing is removed, you should wash the area in the shower, or clean the area as directed by your provider. Continue to do this until th e skin opening has closed. Make sure you wash your hands after changing the packing or clean ing the wound. If you were prescribed antibiotics, take them as directed until they are all gone. You may use acetaminophen or ibuprofen to control pain, unless another pain medicine was prescribed.If you have liver disease or ever had a stomach ulcer, talk with your doctor b efore using these medicines. Follow-up care Follow up with your healthcare provider, or as advised. If a gauze packing was put in your wound, it should be removed in 1 to 2 days. Check your wound every day for any signs that th e infection is getting worse. The signs are listed below. When to seek medical advice Call your healthcare provider right away if any of these occur: Increasing redness or swelling Red streaks in the skin leading away from the wound Increasing local pain or swelling Continued pus draining from the wound 2 days after treatment Fever of 100.4F (38C) or higher, or as directed by your healthcare provider Boil returns when you are at home Date Last Reviewed: 01/11/201619997351-7523 [employer]. [address] [place] [address]. All righ ts reserved. This information is not intended as a substitute for professional medical care. Always follow your healthcare professional's instructions. documented in this encounter Progress Notes Dimitris Flores DO - 11/07/2018 1:25 PM PDTFormatting of this note might be different from e original. Subjective: Jessie Casarez is a 53 y.o. female here for Other (RM -8 patient is here with a sore to th e labia for the last 4 days ) HPI 53-year-old female with complaint of right-sided suprapubic lesion that has been irritating and painful. She noticed it about 4 days ago. She was not sure if this was due to an ingr own hair. Although she does not shave her pubic suprapubic area. She denies of any fever. She has recent history of abdominal incisional abscess, and is well versed in packing metho d. She did complain of some redness and warm her temperature around the incisional abscess, which has healed and the wound is scabbed over. Outpatient Encounter Medications as of 11/07/2018 Medication Sig Dispense Refill adalimumab (HUMIRA PEN) 40 mg/0.8 mL injection (pen) Inject 0.8 mLs under the skin ever y 7 days. aspirin 81 MG tablet Take 81 mg by mouth Daily. atorvaSTATin (LIPITOR) 80 MG tablet Take 1 tablet by mouth nightly. 90 tablet 3 cephalexin (KEFLEX) 500 mg capsule Take 1 capsule by mouth 4 times daily for 14 days. 5 6 capsule 0 dulaglutide (TRULICITY) 1.5 mg/0.5 mL injection Inject [...] every 4 hours as needed for Pain. sulfaSALAzine (AZULFIDINE) 500 mg tablet Take 1,000 mg by mouth 2 times daily. No facility-administered encounter medications on file as of 11/07/2018. Allergies Allergen Reactions Albuterol Itching,Other (See Comments) Headache Plavix (Clopidogrel) Other (See Comments) Reaction Unknown Intolerance Allergen Reactions Metformin Other (See Comments) Patient states it was contraindicated with another medication. 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, + for TB, treated with [facility] through [facility] Extrapulmonary tuberculosis Hypertension Internal hemorrhoid Leukocytosis MA (myocardial infarction) (HCC) 11/2012 Obesity Pleural effusion 10/2011, 11/2011 secondary to RA?, negative for TB Pleural effusion RA (rheumatoid arthritis) ([facility]) 2001 RA (rheumatoid arthritis) ([facility]) Sleep apnea 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 Thyroid nodule Tubal Past Surgical History: Procedure Laterality Date CARDIAC CATHERIZATION N/A 11/21/2015 Procedure: CV LHC; Surgeon: Marissa Rouse MD; Location: [facility] CV LAB CARDIAC CATHERIZATION N/A 11/23/2015 Procedure: CV Cor Angio; Surgeon: Irvin Bell MD; Location: [facility] CV LAB CARDIAC CATHERIZATION N/A 03/25/2016 Procedure: CV LHC; Surgeon: Marissa Rouse MD; Location: [facility] CV LAB CARDIAC CATHERIZATION N/A 03/25/2016 Procedure: CV RHC; Surgeon: Marissa Rouse MD; Location: [facility] CV LAB CHOLECYSTECTOMY COLONOSCOPY 09/04/2015 CORONARY ANGIOPLASTY WITH STENT PLACEMENT 11/2012 Left Circumflex BMS x 1 at [facility] SALPINGECTOMY Left 1990s for ectopic THORACENTESIS 11/09/2011, 12/09/2011, 01/2012 TONSILLECTOMY childhood Family History Problem Relation Age of Onset Diabetes Mother Diabetes Father Heart attack Father Diabetes Sister Arthritis Sister Social History Socioeconomic History Marital status: Spouse name: Not on file Number of children: Not on file Years of education: Not on file Highest education level: Not on file Social Needs Financial resource strain: Not on file Food insecurity - worry: Not on file Food insecurity - inability: Not on file Transportation needs - medical: Not on file Transportation needs - non-medical: Not on file Occupational History 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 [employer] Tobacco Use Smoking status: Former Smoker Types: Cigarettes Start date: 1982 Last attempt to quit: 06/11/2012 Years since quittin.4 Smokeless tobacco: Never Used Substance and Sexual Activity Alcohol use: No Alcohol/week: 0.0 oz Drug use: No Sexual activity: Not on file Other Topics Concern Not on file Social History Narrative Merged History Encounter Lives: in [place] With: Grew up: [place], [place], [place], [place], [place], [place] Has previously lived in: the [place] and [place] Exposure to toxic chemicals: no Exposure to asbestos: no Exposure to tuberculosis: presumably yes Has had a PPD or Quantiferon be fore: yes Has pets at home: no Has ever owned birds: no Other animal exposures: no Hobbies: watching the TV Review of Systems Constitutional: Negative. Skin: Right upper suprapubic region with erythema, nodular lesion and pain. Objective: BP 173/74 | Pulse 74 | Temp 36.7 C (98.1 F) (Temporal) | Resp 12 | Ht 1.575 m (5' 2 ") | Wt 83 kg (182 lb 15.7 oz) | LMP 07/23/2017 (Approximate) | SpO2 99% | BMI 33.47 kg/ m Physical Exam Constitutional: She is well-developed, well-nourished, and in no distress. No distress. HENT: Head: Normocephalic and atraumatic. Eyes: Conjunctivae are normal. Abdominal: Nursing note and vitals reviewed. I&D Abscess Indication - painful abscess located on Right suprapubic region Discussed risks, benefits of procedure. Patient gave verbal consent. Area cleaned, prepped in standard sterile fashion. Anesthesia: 1 cc's of 1% lidocaine with epinephrine Incised with a 11 blade Findings: pustular material are expressed and the cavity explored and any loculated fluid b roken up with blunt dissection Packing used 1/4 packing sterile strip Wound care reviewed and advised to f/u if not getting better. Pain control OTc Assessment/Plan: ICD-10-CM ICD-9-CM 1. Abscess of skin of abdomen L02.211 682.2 cephalexin (KEFLEX) 500 mg capsule Abscess procedure 2. Cellulitis of other specified site L03.818 682.8 Will start patient on Keflex 500 mg capsules 4 times a day for 14 days for both the suprapu bic abscess as well as the cellulitis surrounding the lower abdominal region. Since patient is well versed on wound packing he can return as needed. Return if symptoms worsen or fail to improve. Patient understands, accepts, and agrees with this plan. Dimitris Flores DO, FAAFP doc umented in this encounter Plan of Treatment + + +--------+ + + | Name | Type | Priori | Associated Diagnoses | Order Schedule | | | | ty | | | + + +--------+ + + | Abscess procedure | Procedures | Routin | Abscess of skin of | Ordered: 11/07/2018 | | | | e | abdomen | | + + +--------+ + + documented as of this encounter Visit Diagnoses + + | Diagnosis | + + | Abscess of skin of abdomen - Primary Cellulitis and abscess of trunk | + + | Cellulitis of other specified site | + + documented in this encounter
--- OUTSIDE RECORDS SUMMARY | ~2019-11-29 | XMS | Encounter Summary ---
Demographics + + + | Address | [address] | | | [place] [address] | + + + | Home Phone [...] Team Providers + +------+ + | Care Cooperative Education Coordinator Name | Role | Phone | + +------+ + | Kyle Richey DO | PCP | | + +------+ + Reason for Visit + + + | Reason | Comments | + + + | Flu Like Symptoms | Room 1: "coughing, itching in the ears, vomiting x 3 days but has | | | stopped now. fever comes and goes" | + + + Encounter Details +--------+---------+ + + + | Date | Type | Department | Care Team | Description | +--------+---------+ + + + | 05/24/ | Office | [facility] | Cash Owens | Acute non-recurrent | | 2018 | Visit | CARE [address] | MD Elena [address] | ethmoidal sinusitis | | | | [place] | [place] | (Primary Dx); Viral | | | | [address] | [address] | URI with cough; | | | | [phone] | | History of | | | | | | immunosuppressive | | | | | | therapy | +--------+---------+ + + + Social History [...] + + + | Blood Pressure | 135/71 | 05/24/2017 3:13 PM | | | | | PST | | + + + + + | Pulse | 95 | 05/24/2017 3:13 PM | | | | | PST | | + + + + + | Temperature | 36.8 C (98.3 F) | 05/24/2017 3:13 PM | | | | | PST | | + + + + + | Respiratory Rate | 18 | 05/24/2017 3:13 PM | | | | | PST | | + + + + + | Oxygen Saturation | 100% | 05/24/2017 3:13 PM | | | | | PST | | + + + + + | Inhaled Oxygen | - | - | | | Concentration | | | | + + + + + | Weight | 98.8 kg (217 lb 13 | 05/24/2017 3:13 PM | | | | oz) | PST | | + + + + + | Height | 157.5 cm (5' 2") | 05/24/2017 3:13 PM | | | | | PST | | + + + + + | Body Mass Index | 39.84 | 05/24/2017 3:13 PM | | | | | PST | | + + + + + documented in this encounter Patient Instructions Patient Instructions Cash Owens MD - 05/24/2017 3:30 PM PSTTake Augmentin as pr escribed until gone. Take Tylenol, Advil or Aleve with food as needed for fever or pain. Drink plenty of fluids and get a lot of rest. Use bedside cool mist vaporizer. Use saline nasal rinses/lavage 3-4 times daily. Mix 1 level teaspoon of table salt with 2 c ups of lukewarm water for nasal irrigation. Sniff saline from palm or use bulb syringe or Ne ti pot to rinse nasal passages. Use Mucinex as needed to thin mucous/secretions. Use Robitussin-DM as needed for cough. Use Spiriva for cough as before If nose is occluded at night, use oxymetazoline (Afrin or Dristan Long-acting) nasal spray, 1 spray in each nostril at bedtime only for no more than 5 days. Return here or to your primary care clinic if symptoms persist, change or worsen over the n ext week. Sinusitis (Antibiotic Treatment) The sinuses are air-filled spaces within the bones of the face. They connect to the inside of the nose.Sinusitisis an inflammation of the tissue lining the sinus cavity. Sinus inf lammation can occur during a cold. It can also be due to allergies to pollens and other part icles in the air. Sinusitis can cause symptoms of sinus congestion and fullness. A sinus inf ection causes fever, headache and facial pain. There is often green or yellow drainage from the nose or into the back of the throat (post-nasal drip). You have been given antibiotics t o treat this condition. Home care: Take the full course of antibiotics as instructed. Do not stop taking them, even if you feel better. Drink plenty of water, hot tea, and other liquids. This may help thin mucus. It also may promote sinus drainage. Heat may help soothe painful areas of the face. Use a towel soaked in hot water. Or, sta nd in the shower and direct the hot spray onto your face. Using a vaporizer along with a men thol rub at night may also help. Anexpectorantcontaining guaifenesin may help thin the mucus and promote drainage fro m the sinuses. Apqr-cbs-wabjxfxidhtghcfeshrucnn be used unless a similar medicine was prescribed. N heather sprays work the fastest. Use one that contains phenylephrine or oxymetazoline. First bl ow the nose gently. Then use the spray. Do not use these medicines more often than directed on the label or symptoms may get worse. You may also use tablets containing pseudoephedrine. Avoid products that combine ingredients, because side effects may be increased. Read labels . You can also ask the pharmacist for help. (NOTE:Persons with high blood pressure should not use decongestants. They can raise blood pressure.) Zkor-nzq-yuwdcckrvzyiubaofdvkqiwr help if allergies contributed to your sinusitis. Do not use nasal rinses or irrigation during an acute sinus infection, unless told to by your health care provider. Rinsing may spread the infection to other sinuses. Use acetaminophen or ibuprofen to control pain, unless another pain medicine was prescri bed. (If you have chronic liver or kidney disease or ever had a stomach ulcer, talk with you r doctor before using these medicines. Aspirin should never be used in anyone under 18 years of age who is ill with a fever. It may cause severe liver damage.) Don't smoke. This can worsen symptoms. Follow-up care Follow up with your healthcare provider or our staff if you are not improving within the ne xt week. When to seek medical advice Call your healthcare provider if any of these occur: Facial pain or headache becoming more severe Stiff neck Unusual drowsiness or confusion Swelling of the forehead or eyelids Vision problems, including blurred or double vision Fever of100.4F (38C)or higher, or as directed by your healthcare provider Seizure Breathing problems Symptoms not resolving within 10 days Date Last Reviewed: 08/22/201419993582-0483 [employer]. [address] [place] [address], [place] [address]. All righ ts reserved. This information is not intended as a substitute for professional medical care. Always follow your healthcare professional's instructions. documented in this encounter Progress Notes Cash Owens MD - 05/24/2017 3:30 PM PSTFormatting of this note might be differen t from the original. Chief Complaint: Flu Like Symptoms (Room 1: "coughing, itching in the ears, vomiting x 3 da ys but has stopped now. fever comes and goes") Jessie is a 52 y.o. female who comes in complaining of cough for over 1 week. Describes oneil r nasal congestion, post-nasal drainage, frontal sinus pain/pressure for 5 days, right ear i tching, mild eye irritation, improved sore throat and dry cough. Improved measured fever, sw eats and chills. Has chronic body aches from RA. Resolved nausea and vomiting after 2 days. No diarrhea. Has shortness of breath, wheezing and improved pleuritic chest burning/pain. No n smoker and has hx of COPD. Never hospitalized for the same. Has been taking Tessalon witho ut improvement in symptoms. Took Zofran as needed for nausea. Had exposure to others with same after traveling home from [place]. Has insulin-dependent AODM and takes Humira for RA. Patient's medications, allergies, past medical, surgical, social and family histories were reviewed and updated as appropriate. Objective: BP 135/71 | Pulse 95 | Temp 36.8 C (98.3 F) (Temporal) | Resp 18 | Ht 1.575 m (5' 2 ") | Wt 98.8 kg (217 lb 13 oz) | LMP 05/12/2017 | SpO2 100% | BMI 39.84 kg/m General Appearance: Alert, cooperative, obese, middle-aged female in no distress, appears stated age. Non toxic appearance. Breathing comfortably and speaking in full sentences. Head: Normocephalic, frontal and ethmoid sinus tenderness. No mastoid tenderness. Eyes: PERRL, conjunctiva clear without exudates. Ears: Unremarkable TM's with clear external ear canals and gross normal hearing. Nose: Moderately congested with clear exudates. Throat: Erythematous, non- edematous without exudates. Moist MM. Neck: Supple, symmetrical, no anterior cervical adenopathy. Lungs: Clear to auscultation bilaterally without rales or wheezes, respirations unlabored. Cardiac: Regular rhythm, no murmur or tatyana. No ankle edema. Abdomen: Soft, non tender. No organomegaly. Skin: Skin color, texture, turgor normal, no rash. Assessment and Plans: 1. Acute non-recurrent ethmoidal sinusitis amoxicillin-clavulanate (AUGMENTIN) 875-125 mg per tablet 2. Viral URI with cough 3. History of immunosuppressive therapy Greater than 1 week history of viral URI with cough presents with secondary ethmoid and fro ntal sinusitis. Insulin-dependent diabetes mellitus and rheumatoid arthritis on immunosuppr essive therapy places her at risk for secondary bacterial infection. She was given the foll owing instructions and prescription. Plan: Take Augmentin as prescribed until gone. Take Tylenol, Advil or Aleve with food as needed for fever or pain. Drink plenty of fluids and get a lot of rest. Use bedside cool mist vaporizer. Use saline nasal rinses/lavage 3-4 times daily. Mix 1 level teaspoon of table salt with 2 c ups of lukewarm water for nasal irrigation. Sniff saline from palm or use bulb syringe or Ne ti pot to rinse nasal passages. Use Mucinex as needed to thin mucous/secretions. Use Robitussin-DM as needed for cough. Use Spiriva for cough as before If nose is occluded at night, use oxymetazoline (Afrin or Dristan Long-acting) nasal spray, 1 spray in each nostril at bedtime only for no more than 5 days. Return here or to your primary care clinic if symptoms persist, change or worsen over the n ext week. Cash QuispefMD documented in th is encounter Plan of Treatment Not on filedocumented as of this encounter Visit Diagnoses + + | Diagnosis | + + | Acute non-recurrent ethmoidal sinusitis - Primary | + + | Viral URI with cough Acute upper respiratory infections of unspecified site | + + | History of immunosuppressive therapy Personal history of immunosuppressive therapy | + + documented in this encounter
--- OUTSIDE RECORDS SUMMARY | ~2019-11-29 | XMS | Encounter Summary ---
Demographics + + + | Address | [address] | | | [place] [address] | + + + | Home Phone | | + + + | Preferred Language | Unknown | + + + | Marital Status | | + + + | Buddhism Affiliation | Unknown | + + + [...] Team Providers + +------+ + | Care Interchange Agent Name | Role | Phone | + +------+ + | Kyle Richey DO | PCP | | + +------+ + Encounter Details +--------+ + + + + | Date | Type | Department | Care Team | Description | +--------+ + + + + | 10/30/ | Hospital | [facility] | Arjun, | Chronic cough; | | 2016 | Encounter | MED CTR XRAY [address] | Megha Mendoza MD Rad, | Gastroesophageal | | | | [place] | [facility] | reflux disease | | | | [place] [address] | | without esophagitis; | | | | [phone] | | Pharyngoesophageal | | | | | | dysphagia | +--------+ + + + + Social [...] | + +--------+ + + + | FL ESOPHAGRAM | Routin | 10/31/2015 | Chronic cough | Results for this | | COMPLETE | e | 9:25 AM | Gastroesophageal | procedure are in the | | | | PDT | reflux disease | results section. | | | | | without esophagitis | | | | | | Pharyngoesophageal | | | | | | dysphagia | | + +--------+ + + + documented in this encounter Results FL Esophagram Complete (10/31/2015 9:25 AM PDT) + + | Specimen | + + | | + + + + + | Narrative | Performed At | + + + | FL ESOPHAGRAM COMPLETE 10/31/2015 9:00 AM HISTORY: Intermittent | [facility] | | mid esophageal dysphagia with liquids. COMPARISON: None. | . [facility] | | PROTOCOL: The patient was initially administered effervescent crystals | [facility] | | followed by oral barium. Fluoroscopic [...] + + | Performing | Address | City/State/[facility] | Phone Number | | Organization | | | | + + + + + | [facility] | [address] | [place] | [phone] | | [facility] | | [address] | | | - IMAGING | | | | + + + + + documented in this encounter Visit Diagnoses + + | Diagnosis | + + | Chronic cough Cough | + + | Gastroesophageal reflux disease without esophagitis Esophageal reflux | + + | Pharyngoesophageal dysphagia Dysphagia, pharyngoesophageal phase | + + documented in this encounter"
--- OUTSIDE RECORDS SUMMARY | ~2019-11-29 | XMS | Encounter Summary ---
Demographics + + + | Address | [address] | | | [place] [address] | + + + | Home Phone | | + + + | Preferred Language | Unknown | + + + | Marital Status | | + + + | Yazidism Affiliation | Unknown | + + + | Race | Unknown | + + + | Ethnic Group | Unknown | + + + Author + + + | Author | [facility] | | | and [place] | + + + | Organization | [facility] | | | and [place] | + [...] Team Providers + +------+ + | Care Geothermal Powerplant Mechanic Helper Name | Role | Phone | + +------+ + | Kyle Richey DO | PCP | | + +------+ + Encounter Details +--------+ + + + + | Date | Type | Department | Care Team | Description | +--------+ + + + + | 03/28/ | Hospital | [facility] | Conversion | Diagnosis unknown | | 2016 | Encounter | CONVERSION [address] | Transaction, | | | | | [address] | Provider Unknown | | | | | [place], [place] | [phone] | | | | | [address] | | | | | | [phone] | | | +--------+ + + + [...] | CV CARDIAC PROCEDURE | Routin | 03/25/2016 | | Results for this | | | e | 12:49 PM | | procedure are in the | | | | PST | | results section. | + +--------+ + + + documented in this encounter Results CV CARDIAC PROCEDURE (03/25/2016 12:49 PM PST) + + | Specimen | + + | | + + + + + | Narrative | Performed At | + + + | This is a non-reportable procedure without a radiologist report and | | | is used for image storage only | | + + + + + | Procedure Note | + + | Jayme Kelly Conversion - 12/30/2018 3:08 PM PDT This is [...]
--- OUTSIDE RECORDS SUMMARY | ~2019-11-29 | XMS | Encounter Summary ---
Demographics + + + | Address | [address] | | | [place] [address] | + + + | Home Phone | | + + + | Preferred Language | Unknown | + + + | Marital Status | | + + + | Buddhist Affiliation | Unknown | + + + [...] Team Providers + +------+ + | Care Community Living Coach Name | Role | Phone | + [...] | | | | | | NM CATH | | | | | | | PLACE/CORON | | | | | | | ANGIO, IMG | | | | | | | SUPER/INTERP | | | | | | | ,W LEFT | | | | | | | HEART | | | | | | | VENTRICULOGR | | | | | | | APHY NM | | | | | | | RIGHT HEART | | | | | | | CATH O2 | | | | | | | SATURATION & | | | | | | | CARDIAC | | | | | | | OUTPUT NM | | | | | | [...] + + + + | 03/25/ | Hospital | [facility] | Marissa Rouse, | Coronary artery | | 2016 | Encounter | MED CTR CV INTRA OP | MD [address] | disease involving | | | | [address] | [place], | crow coronary | | | | [place], [place] | [place] [address] | artery of crow | | | | [address] | [phone] | heart without angina | | | | [phone] | | pectoris (Primary | | | | | | Dx) | +--------+ + + + + Social [...] + + + | Blood Pressure | 136/67 | 03/25/2016 11:45 AM | | | | | PST | | + + + + + | Pulse | 86 | 03/25/2016 12:00 PM | | | | | PST [...] + | Oxygen Saturation | 99% | 03/25/2016 12:00 PM | | | | | PST [...] ASA 2 Typical airway Lay Howe AR CENTRIFUGAL EXTRACTOR OPERATOR - 03/12/2016 2:47 PM PDT PATIENT NAME: Jessie Casarez : 1965: AGE: 51 y.o. PRIMARY CARE: Kyle Richey DO OUTPATIENT FOLLOW UP VISIT Date of Service: 03/12/2016 HISTORY OF PRESENT ILLNESS: Jessie Casarez is a 51 y.o. female with a history of coronary artery disease involving sarah danielle coronary artery of crow heart without angina pectoris post non-STEMI post [...] arthritis) Pleural effusion Coronary artery disease involving crow coronary artery of crow heart without angina pectoris CKD (chronic kidney [...] visit today primarily from [facility]: LIPID Lab Results Component Value Date CHOL [...] I reviewed records from [facility] for office visit on 02/22/2016 which is [...] specified. ASSESSMENT: 1. Coronary artery disease involving crow coronary artery of crow heart without angina pectoris/non-STEMI: A. Post non-STEMI. Left heart cath on 11/21/12 showed 95% stenosis of the LCx, 20-30% stenosis of the proximal RCA. Status post PTCA and stents x 2 of the L Cx.Since that time, she saw a forestry conservation worker for couple times and loss of follow-up. B. Echocardiogram on 11/20/15 showed Mild biatrial dilatation. Maria l left ventricular size, wall thickness and motion. Preserved left ventricular systolic func tion. LVEF is 60%. Normal valvular structure. Normal right-sided pressure. Normal IVC with n ormal respiratory collapse. C. She started having a chest pain on 11/17/15 while she was working at the [employer]. She described it as a chest pressure 11/18 that radiated across the chest wa ll and was associated some shortness of breath. No palpitation, dizziness or lightheadedne ss. No sweating. She waited until 11/19/15 when she had recurrent bad chest pain that too k her to the ED of [facility] in [place]. She was found to have blood sugar of almost 1000 and troponin of 0.5. She was transferred to [facility]. D. Left heart cath on 11/21/15 [...] is in a class II of [place] [employer] functional class.There is no [...] on ce weekly by Dr. Castillo in [place]. 5. Acute kidney injury on top of the stage III chronic kidney disease A. She also seen a halal butcher at [facility] but recently los t follow-up. B. [...] this chart may have been created with [employer] voice recognition software. Occasi onal wrong-word or [...] Jessie Casarez, (1965) DATE OF PROCEDURE: 03/25/2016 HIGH SCHOOL TEACHER: Marissa Rouse MD PROCEDURES PERFORMED: Coronary Angiography [...] (1965) OF PROCEDURE: | | | 03/25/2016 HIGH SCHOOL TEACHER: Marissa Rouse MD PROCEDURES | | | [...] Casarez, (1965) OF | | PROCEDURE: 03/25/2016PRIMARY PROFILE STITCHING MACHINE OPERATOR: Marissa Rouse MD PROCEDURES | | PERFORMED:Coronary [...] | management. PRIMARY | | CARE PROVIDER:Kyle Richey DO | | | |Ao - 128/65 [...] | 1.010, 1.015, | | | | [place], | | 1.020, 1.025 | | | [...] 1.85 (H) | 0.60 - 1.30 | [facility] | | | | | mg/dL | [facility] | | | | | | MEDICAL | | | | | | CENTER - | | | | | | LABORATORY | | + + + + + + | eGFR if not | 29 (L)Comment: | >=60 | [facility] | | | | GLOMERULAR FILTRATION | mL/min/1.73m2 | [facility] | | | PRYDEINIG | RATE,ESTIMATED | | MEDICAL | | | | mL/min/1.71d7Xkak than | | CENTER - | | [...] [address] | [place] | [phone] | | [facility] | | [address] | | | - LABORATORY | | [...] | [address] | [place], [place] | [phone] | | [facility] | | [address] | | | - LABORATORY | | | | + + + + + documented in this encounter Visit Diagnoses + + | Diagnosis | + + | Coronary artery disease involving crow coronary artery of crow heart without | | angina pectoris - [...] PST | | | | | Starting 03/25/16 at 0952, | | | | | | | Intra-op | | | | | | + +--------+ +------+------+------+ +-------+ +---------+---+---+ | Given | 03/25/20 | 53.368 | | | | | 16 9:52 | mg | | | | | AM PST | | | | +-------+ +---------+---+---+ +---+---+ | | | +---+---+ + +---------+ [...]
[~2019-11-29 22:11] MED LIST changes: +DOXYCYCLINE HY100 MG PO; +GLIPIZIDE ER2.5 MG PO; +LIPITOR80 MG PO; +METOPROLOL SUCC25 MG PO; +OMEPRAZOLE20 MG PO
--- OUTSIDE RECORDS SUMMARY | 2019-11-29 22:14 | XMS ---
PreManage Notification: BARBARA CUEVAS Security Customer Response Representative Events No recent Security Events currently on file CRITERIA MET - History of Sepsis Dx - PDMP CARE PROVIDERS TERRI ANDREWS [facility] Current PHONE: Unknown CLAUDIA, ANGIE Obstetrics \T\ Gynecology 01/05/2019-Current PHONE: [phone] Lizbeth has no Care Guidelines for this patient. Tyree VISIT COUNT (12 MO.) 1 Krystal Warner TOTAL 4 NOTE: Visits indicate total known visits. ED/UCC VISIT TRACKING (12 MO.) 11/29/2019 22:[address] [facility] [address] [facility] TYPE: Emergency COMPLAINT: - STROKE SYMPTOMS 09/14/2019 11:27 [facility] Miguelina WILLARD TYPE: Emergency DIAGNOSES: - Abdominal Pain - Acute pancreatitis with uninfected necrosis, unspecified - abd to back pain - Duodenitis without bleeding 02/23/2019 16:37 [facility] [place] TYPE: Emergency COMPLAINT: - FEVER 01/04/2019 21:49 [facility] [place] TYPE: Emergency COMPLAINT: - FALL DIAGNOSES: - state director (current) use of insulin - Nicotine dependence, unspecified, uncomplicated - Cervicalgia - Unspecified sprain of left middle finger, initial encounter - Contusion of left knee, initial encounter - Fall (on) (from) other stairs and steps, initial encounter - Allergy status to other drugs, medicaments and biological sub - Type 2 diabetes mellitus without complications - Old myocardial infarction - Other correction (current) drug therapy - Presence of coronary angioplasty implant and graft - Personal history of urinary calculi - Unspecified sprain of right thumb, initial encounter - Other nonmedicinal substance allergy status - long-term (current) use of aspirin INPATIENT VISIT TRACKING (12 MO.) 02/23/2019 19:39 [facility] [place] TYPE: Medical Surgical COMPLAINT: - SEPSIS,WOUND INFECTION DIAGNOSES: - long-term (current) use of aspirin - Cutaneous abscess of abdominal wall - state director (current) use of aspirin - Acute kidney failure, unspecified - Patient's other noncompliance with medication regimen - Patient's other noncompliance with medication regimen - Atherosclerotic heart disease of wrangell coronary artery witho - Other correction (current) drug therapy - Cellulitis of abdominal wall - Body mass index (BMI) 35.0-35.9, adult - Obesity, unspecified - Chronic kidney disease, stage 3 (moderate) - Allergy status to other drugs, medicaments and biological sub - Nicotine dependence, unspecified, uncomplicated - Obesity, unspecified - Presence of coronary angioplasty implant and graft - Type 2 diabetes mellitus with diabetic chronic kidney disease - Severe sepsis without septic shock - Nicotine dependence, unspecified, uncomplicated - Rheumatoid arthritis, unspecified - Body mass index (BMI) 35.0-35.9, adult - Cutaneous abscess of abdominal wall - Rheumatoid arthritis, unspecified - long-term (current) use of insulin - Allergy status to other drugs, medicaments and biological sub - Hyperlipidemia, unspecified - Cellulitis of abdominal wall - Sepsis due to Methicillin susceptible Staphylococcus aureus - Presence of coronary angioplasty implant and graft - Atherosclerotic heart disease of wrangell coronary artery witho - Severe sepsis without septic shock - Other correction (current) drug therapy - Sepsis, unspecified organism - Acute kidney failure, unspecified - long-term (current) use of insulin - Sepsis due to Methicillin susceptible Staphylococcus aureus - Chronic kidney disease, stage 3 (moderate) - Hyperlipidemia, unspecified - Type 2 diabetes mellitus with diabetic chronic kidney disease - Infct fol a proc, superfic incisional surgical site, init [email or web address]
--- NOTE | 2019-11-30 19:52 | EKG ---
[facility] [address] [facility] [place] [address] Signed Sinus rhythm with premature atrial complexes with aberrant conduction Left anterior fascicular block ST \T\ T wave abnormality, consider lateral ischemia Abnormal ECG When compared with ECG of 23-FEB-2019 17:12, aberrant conduction is now present Confirmed by JUAN BRANTLEY MD ([id number]) on 11/30/2019 7:52:47 PM Electronically Signed By: JUAN BRANTLEY MD 11/30/191951 PATIENT NAME: BARBARA CUEVAS Electrocardiogram DATE OF : [birth year] PHYSICIAN: JUAN BRANTLEY MD REPORT #: [id number] REPORT IS CONFIDENTIAL AND NOT TO BE RELEASED WITHOUT AUTHORIZATION
== END 2019-11-30 00:19 | disposition short-term general hospital (02) ==
LOC: ED 22:11
DX: I63.9 Cerebral infarction, unspecified (principal); E11.9 Type 2 diabetes mellitus without complications; F17.200 Nicotine dependence, unspecified, uncomplicated; Z91.048 Other nonmedicinal substance allergy status; Z88.8 Allergy status to other drugs, medicaments and biological substances; Z79.82 Long term (current) use of aspirin
CPT/HCPCS: 51702; 70450; 70496; 70498; 71045; 80053; 81001; 83880; 84484; 85025; 85610; 85730; 93005; 93010; 99285-25; G0480; J2997; J7060; Q3014; Q9967

== ENCOUNTER 2020-08-21 15:00 | Emergency (ER) | payer OTHER ==
[~2020-08-21] VITALS: Ht 157.5 cm; Wt 90.7 kg
[2020-08-21] MEDS ORDERED: CILOSTAZOL100 MG PO (15:11)
[2020-08-21] MEDS ORDERED: METOPROLOL TART50 MG PO (15:12)
[2020-08-21] MEDS ORDERED: FENOFIBRATE54 MG PO (15:13)
[2020-08-21] MEDS ORDERED: JANUVIA50 MG PO (15:13)
[2020-08-21] MEDS ORDERED: GABAPENTIN300 MG PO (15:14)
[2020-08-21] MEDS ORDERED: PIOGLITAZONE HC15 MG PO (15:14)
[2020-08-21] MEDS ORDERED: INDAPAMIDE2.5 MG PO (15:15)
== END 2020-08-21 17:30 | disposition home or self-care (01) ==
LOC: ED 15:00
DX: R03.0 Elevated blood-pressure reading, without diagnosis of hypertension (principal); E11.22 Type 2 diabetes mellitus with diabetic chronic kidney disease; N18.9 Chronic kidney disease, unspecified; Z88.8 Allergy status to other drugs, medicaments and biological substances; Z91.048 Other nonmedicinal substance allergy status; Z79.899 Other long term (current) drug therapy; Z79.82 Long term (current) use of aspirin
CPT/HCPCS: 80053; 85025; 99284

== ENCOUNTER 2020-10-18 20:12 | Emergency (ER) | payer OTHER ==
[~2020-10-18] VITALS: Ht 157.5 cm; Wt 90.7 kg
[~2020-10-18 20:12] MED LIST changes: +CILOSTAZOL100 MG PO; +FENOFIBRATE54 MG PO; +GABAPENTIN300 MG PO; +INDAPAMIDE2.5 MG PO; +JANUVIA50 MG PO; +PIOGLITAZONE HC15 MG PO
[2020-10-18] MEDS ORDERED: ASPIRIN325 MG PO (20:40)
[2020-10-18] MEDS ORDERED: CALCITRIOL0.25 MCG PO (20:41)
[2020-10-18] MEDS ORDERED: ALLOPURINOL100 MG PO (20:41)
[2020-10-18] MEDS ORDERED: CLONIDINE1 EAC1 TD (20:41)
--- NOTE | 2020-10-19 14:03 | EKG ---
[facility] [address] [facility] [place] [address] Signed Normal sinus rhythm Left axis deviation Left ventricular hypertrophy with repolarization abnormality Abnormal ECG When compared with ECG of 29-NOV-2019 23:01, aberrant conduction is no longer present Confirmed by SARA FAGAN MD ([id number]) on 10/19/2020 2:03:42 PM Electronically Signed By: SARA FAGAN MD 10/19/20 1403 PATIENT NAME: BARBARA CUEVAS Electrocardiogram DATE OF : 61 PHYSICIAN: SARA FAGAN MD REPORT #: [id number] REPORT IS CONFIDENTIAL AND NOT TO BE RELEASED WITHOUT AUTHORIZATION
== END 2020-10-19 00:22 | disposition home or self-care (01) ==
LOC: ED 20:12
DX: R07.89 Other chest pain (principal); E11.65 Type 2 diabetes mellitus with hyperglycemia; I25.2 Old myocardial infarction; Z87.891 Personal history of nicotine dependence; Z88.8 Allergy status to other drugs, medicaments and biological substances; Z91.040 Latex allergy status; Z79.899 Other long term (current) drug therapy; Z79.82 Long term (current) use of aspirin
CPT/HCPCS: 71045; 80053; 81001; 83735; 84484; 85025; 93005; 93010; 99285-25; J7030

== ENCOUNTER 2023-02-21 17:40 | Emergency (ER) | payer MEDICARE, OTHER ==
[~2023-02-21] VITALS: Ht 157.5 cm; Wt 105.6 kg
--- OUTSIDE RECORDS SUMMARY | ~2023-02-21 | XMS | Continuity of Care Document ---
Demographics + + + | Address | [address] | | | [place] [address] | + + + | Preferred Language | Unknown | + + + | Marital Status | Never | + + + | Sabianism Affiliation | Yazdanism Yazdanism | + + + | Race | Unknown | + + + | Ethnic Group | Unknown | + + + Author + + + | Author | [facility] | + + + | Organization | [facility] | + + + | Address | [address] [facility] [facility] | | | [place] [address] | + + + | Phone | | + + + Care Team Providers + + + + | Care Waste Disposal Leakage Tester Name | Role | Phone | + + + + Unavailable | Unavailable | + + + + Allergies No information. Encounters No information. Functional Status No information. Immunizations No information. Medications No information. 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 Results/Labs No information. Social History +--------+ + + | date | description | facility | +--------+ + + Vital Signs No information."
[~2023-02-21 17:40] MED LIST changes: +ALLOPURINOL300 MG PO; +ASPIRIN325 MG PO; +CALCITRIOL0.25 MCG PO; +CLONIDINE1 EAC1 TD
[2023-02-21] MEDS ORDERED: HUMIRA PEN40 MG/0.4 SUB-Q (19:50)
[2023-02-21] MEDS ORDERED: ALLOPURINOL300 MG PO (19:52)
[2023-02-21] MEDS ORDERED: CALCITRIOL0.5 MCG PO (19:54)
[2023-02-21] MEDS ORDERED: LO-DOSE ASPIRIN81 MG PO (19:54)
[2023-02-21] MEDS ORDERED: FUROSEMIDE40 MG PO (19:54)
[2023-02-21] MEDS ORDERED: ATORVASTATIN CA80 MG PO (19:54)
[2023-02-21] MEDS ORDERED: TRULICITY4.5 MG/0.5 SUB-Q (19:55)
[2023-02-21] MEDS ORDERED: ISOSORBIDE MONO30 MG PO (19:55)
[2023-02-21] MEDS ORDERED: FENOFIBRATE54 MG PO (19:55)
[2023-02-21] MEDS ORDERED: LOSARTAN POTASS25 MG PO (19:55)
[2023-02-21] MEDS ORDERED: AMLODIPINE BES2.5 MG PO (19:56)
[2023-02-21] MEDS ORDERED: PIOGLITAZONE HC15 MG PO (19:56)
[2023-02-21] MEDS ORDERED: CLOPIDOGREL75 MG PO (19:56)
[2023-02-21 20:17] LABS: BASOPHILS 0.8 % (0-2); EOSINOPHILS 7.6 % (0-6); HEMATOCRIT 34.4 % (35.0-50.0); LYMPHOCYTES 29.4 % (24-44); MCH 31.3 (27-36); MCHC 32.1 g/dl (30-36); MCV 97.6 fl (81-99); MONOCYTES 7.3 % (0-12); NEUTROPHILS 54.9 % (39-80); PLATELET COUNT 266 K/uL (140-440); RBC 3.52 M/ul (4.3-5.7); RDW 16.3 (10.5-15.0)
[2023-02-21 20:31] LABS: ALBUMIN 3.8 g/dL (3.4-5.0); ALBUMIN/GLOBULIN RATIO 0.95 (1.1-2.4); BILIRUBIN, TOTAL 0.3 ng/dL (0.2-1.0); BUN/CREATININE RATIO 13.88 (6.0-28.6); CALCIUM 8.2 mg/dL (8.5-10.1); CREATININE, SERUM 5.04 mg/dL (0.55-1.02); PROTEIN, TOTAL 7.8 g/dL (6.4-8.2)
[2023-02-21 20:33] LABS: INR 0.96 (0.80-1.30); PROTIME 12.3 Sec (11.2-14.2)
[2023-02-21 21:30] VITALS: BP 159/77
== END 2023-02-21 21:30 | disposition home or self-care (01) ==
LOC: ED 17:40
PROVIDERS: Emergency Medicine
DX: K62.5 Hemorrhage of anus and rectum (principal); E11.9 Type 2 diabetes mellitus without complications; I25.2 Old myocardial infarction; M06.9 Rheumatoid arthritis, unspecified; Z87.891 Personal history of nicotine dependence; Z91.040 Latex allergy status; Z91.048 Other nonmedicinal substance allergy status; Z79.84 Long term (current) use of oral hypoglycemic drugs; Z79.899 Other long term (current) drug therapy; Z79.02 Long term (current) use of antithrombotics/antiplatelets; Z79.82 Long term (current) use of aspirin
CPT/HCPCS: 36415; 80053; 83690; 85025; 85610; 99283

== ENCOUNTER 2023-12-04 11:08 | Emergency (ER) | payer MEDICARE, OTHER ==
[~2023-12-04] VITALS: Ht 157.5 cm; Wt 100.6 kg
--- OUTSIDE RECORDS SUMMARY | ~2023-12-04 | XMS | Continuity of Care Document ---
Demographics + + + | Address | [address] | | | [place] [address] | + + + | Preferred Language | Unknown | + + + | Marital Status | Never | + + + | Shinto Affiliation | Yarsani Quaker | + + + | Race | Unknown | + + + | Ethnic Group | Unknown | + + + Author + + + | Author | [facility] | + + + | Organization | [facility] | + + + | Address | [address] | | | [place] [address] | + + + | Phone | | + + + Care Team Providers + + + + | Care System Administration Advisor Name | Role | Phone | + + + + Unavailable | Unavailable | + + + + Allergies No information. Encounters No information. Functional Status No information. Immunizations No information. Medications No information. Problems + + + + | date | description | facility | + + + + | 2023-09-19 08:31:02 | Rheumatoid arthritis, | [facility] | | | unspecified (HCC) | [facility] | + + + + | 2023-09-19 08:31:02 | Other skilled nursing (current) | [facility] | | | drug therapy | [facility] | + + + + Procedures No information. Results/Labs No information. Social History +--------+ + + | date | description | facility | +--------+ + + Vital Signs No information."
[~2023-12-04 11:08] MED LIST changes: +AMLODIPINE BES2.5 MG PO; +CLOPIDOGREL75 MG PO; +FUROSEMIDE40 MG PO; +HUMIRA PEN40 MG/0.4 SUB-Q; +LO-DOSE ASPIRIN81 MG PO; +LOSARTAN POTASS25 MG PO; +TRULICITY4.5 MG/0.5 SUB-Q
[2023-12-04] MEDS ORDERED: OZEMPIC1 MG/0.71 SQ (11:40)
[2023-12-04] MEDS ORDERED: LIDOCAINE HCL 4% 1 EACH PATCH TD ONE (11:45)
[2023-12-04] MEDS ORDERED: ACETAMINOPHEN 500 MG TAB PO ONE (11:45)
[2023-12-04 14:00] VITALS: BP 134/89
== END 2023-12-04 14:00 | disposition home or self-care (01) ==
LOC: ED 11:08
DX: M54.6 Pain in thoracic spine (principal); E11.9 Type 2 diabetes mellitus without complications; Z87.891 Personal history of nicotine dependence; Z79.02 Long term (current) use of antithrombotics/antiplatelets; Z79.899 Other long term (current) drug therapy; Z79.82 Long term (current) use of aspirin; Z91.040 Latex allergy status; Z91.048 Other nonmedicinal substance allergy status
CPT/HCPCS: 71045; 72070; 99283; A9270

== ENCOUNTER 2024-06-26 14:24 | Emergency (ER) | payer MEDICARE, OTHER ==
[~2024-06-26] VITALS: Ht 157.5 cm; Wt 101.6 kg
[~2024-06-26 14:24] MED LIST changes: +OZEMPIC1 MG/0.71 SQ
[2024-06-26] MEDS ORDERED: ACETAMINOPHEN 500 MG TAB PO ONE (17:30)
[2024-06-26 18:10] LABS: INFLUENZA B NAA NEGATIVE (NEGATIVE); RESPIRATORY SYNCYTIAL VIR NAA POSITIVE (NEGATIVE)
[2024-06-26 19:03] VITALS: BP 142/86
== END 2024-06-26 19:04 | disposition home or self-care (01) ==
LOC: ED 14:24
PROVIDERS: Emergency Medicine
DX: J20.5 Acute bronchitis due to respiratory syncytial virus (principal); E11.9 Type 2 diabetes mellitus without complications; I25.2 Old myocardial infarction; Z87.891 Personal history of nicotine dependence; Z91.040 Latex allergy status; Z91.048 Other nonmedicinal substance allergy status; Z79.84 Long term (current) use of oral hypoglycemic drugs; Z79.82 Long term (current) use of aspirin; Z79.899 Other long term (current) drug therapy
CPT/HCPCS: 71045; 87502; 99283-25; A9270; U0002